=== PATIENT | female | born 1970 | race Caucasian/White ===

== ENCOUNTER 2017-06-10 13:12 | Outpatient (RCR) | payer MEDICAID, SELFPAY ==
[2017-06-10 14:55] VITALS: BP 115/69; PULSE 90; RESP 16; TEMP 36.9; BMI 24.2
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
== END 2017-06-15 23:59 ==
LOC: WC 13:12
PROVIDERS: Family Provider Family Medicine; PCP Family Medicine; Visit Provider Family Medicine
DX: E11.622 Type 2 diabetes mellitus with other skin ulcer (principal); L98.491 Non-pressure chronic ulcer of skin of other sites limited to breakdown of skin; E11.42 Type 2 diabetes mellitus with diabetic polyneuropathy; L84 Corns and callosities; E11.65 Type 2 diabetes mellitus with hyperglycemia; F41.9 Anxiety disorder, unspecified; F32.9 Major depressive disorder, single episode, unspecified; Z79.899 Other long term (current) drug therapy; Z79.4 Long term (current) use of insulin; F17.210 Nicotine dependence, cigarettes, uncomplicated
CPT/HCPCS: 97597; 99213; G0463

== ENCOUNTER → 2017-06-17 07:48 | Outpatient (CLI) | payer MEDICAID, SELFPAY ==
--- NOTE | 2017-06-27 14:01 | EEG ---
- Electroencephalogram Date of service: 06/17/17 History EEG is being done in this 47 yr F to rule out seizures EEG Description: This is an 18 channel EEG with 10-20 lead placement system. Bipolar montages, Referential and Circumferential montages were reviewed. Photic stimulation and Hyperventilation were performed. The posterior dominant background rhythm is 6-7 HZ synchronous, symmetric, reacting to eye opening and closing. Photo stimulation did not elicit any driving response or abnormal photoparoxysmal response, Hyperventilation did not elicit any abnormal photoparoxysmal response. Sleep was not identified. There was no epileptiform discharges or electrographic seizures noted during this recording. The background rhythm showed generalized theta frequency EEG Interpretation This is an abnormal EEG due to the presence of moderate generalized slowing. This can be seen in generalized cerebral dysfunction like metabolic/toxic encephalopathy. Clinical correlation is advised. Please note, per [facility] patient is on Tramadol and should be be advised to stop tramadol which has the potential to lower seizure threshold. Will defer to the primary care physician or the EEG ordering physician to inform the patient about the same. There is no epileptiform discharges or electrographic seizures noted during the record.
== END ==
PROVIDERS: Family Provider Family Medicine; PCP Family Medicine; Visit Provider Family Medicine
DX: G40.409 Other generalized epilepsy and epileptic syndromes, not intractable, without status epilepticus (principal)
CPT/HCPCS: 95819

== ENCOUNTER 2017-06-28 14:37 | Outpatient (RCR) | payer MEDICAID, SELFPAY ==
--- NOTE | 2017-06-28 16:27 | HP.PTEVAL_ITS ---
Patient's Visit Information LUCINDA KAYE is a 47 year old F referred to Physical Therapy by DO SRI Hargrove with a diagnosis of WC assessment. Date of Evaluation: 06/28/17 Physical Therapist: Bear Swenson, PT, - Visit Plan Plan: Discharge pt at this time. I would recommend a wheelchair for community ambulation for this pt as she is unsteady while ambulating and has a low tolerance for ambulation. - Subjective Subjective: Pt reports she was Dx'd with DMII 8 years ago. Pt reports that with the DM, she has lost all sensation in her feet which makes it hard to walk without falling. Pt reports she also gets low BP at times which results in her having diff with walking as well. Pt reports she has had 2 recent falls lately which has given her LBP. Pt reports she has stairs at home, and cant negotiate them without help from someone else. Pt reports her legs give out on her when she has been sitting for a while and attempts to stand up. 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 Pt is unable to go shopping at this time without a riding cart secondary to intolerance with gait. Pt reports her feet, ankles, and back of her legs hurt from neuropathy. Pt uses a walker at home. - Pain B legs Pain Intensity (Out of 10): 8 - Objective Neuro: L2 and L3 dermatones are WNL to light touch. All other LE dermatones are numb. B patellar reflex= 1/3. MMT: R LE 4+/5 while L LE 4-/5 throughout. Gait : Pt is able to ambulate with WW 60 feet until having to sit down wecondary to neuropathy pain. Pt is very unsteady and uses slow cadance with her gait. Balance: Pt is able to DLS with EO for 30 sec without UE support. Pt is unable to DLS with EC or SLS at all. - Rehabilitation Potential Physical Therapy Diagnosis: Pt has B LE weakness, decreased lyly for ambulation, and unsteady gait secondary to B LE neuropathy Rehabilitation Potential: Excellent - Anticipated Interventions Patient/Client Instruction: Educate patient on: Condition, Plan of Care For the Purpose of:: To improve self management Thank you for the opportunity to evaluate your patient. For Medicare and Medicare HMO plans, please review the plan of care and approve it. It will need to be FAXED BACK to us at [phone] for Medicare purposes. Please let me know if there are questions or concerns regarding this plan of care. Physician Signature: Date:
== END 2017-06-28 15:00 | disposition home or self-care (01) ==
LOC: PT 14:37
PROVIDERS: Family Provider Family Medicine; PCP Family Medicine; Visit Provider Family Medicine
DX: M79.9 Soft tissue disorder, unspecified (principal); R26.81 Unsteadiness on feet; E11.42 Type 2 diabetes mellitus with diabetic polyneuropathy
CPT/HCPCS: 97161

== ENCOUNTER → 2017-07-28 14:11 | Outpatient (CLI) | payer MEDICAID, SELFPAY | PROVIDERS: Family Provider Family Medicine; PCP Family Medicine; Visit Provider Family Medicine | DX: R30.0 Dysuria (principal) | CPT/HCPCS: 87077; 87086; 87088; 87186 ==

== ENCOUNTER → 2017-08-12 09:51 | Outpatient (CLI) | payer MEDICAID, SELFPAY | PROVIDERS: Family Provider Family Medicine; PCP Family Medicine; Visit Provider Family Medicine | DX: N39.0 Urinary tract infection, site not specified (principal) | CPT/HCPCS: 87086; 87088 ==

== ENCOUNTER → 2017-08-22 18:34 | Outpatient (CLI) | payer MEDICAID, SELFPAY ==
--- NOTE | 2017-08-22 18:43 | RAD_ITS ---
STUDY: X-RAY - CERVICAL SPINE REASON FOR EXAM: Female, 47 years old. Neck pain, no known injury TECHNIQUE: 3 view(s) of the cervical spine were obtained. COMPARISON: None FINDINGS: Normal anterior atlantoaxial articulation. Normal odontoid process. Normal cervical lordosis. Normal vertebral bodies and endplates. Normal disc space heights. The soft tissue structures are unremarkable. Patient is edentulous. RAD/Cerv Spine 2 or 3 Views IMPRESSION: Normal x-ray examination of the visualized cervical spine. Electronically Signed: Maria C Leigh MD at 4:39 EDT , Service support ,
== END ==
PROVIDERS: Family Provider Family Medicine; PCP Family Medicine; Visit Provider Nurse Practitioner Family
DX: M54.2 Cervicalgia (principal)
CPT/HCPCS: 72040

== ENCOUNTER 2017-09-16 14:00 | Outpatient (RCR) | payer MEDICAID, SELFPAY ==
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
--- NOTE | 2017-09-07 14:01 | HP.PTREVAL_ITS ---
Alexandra Catalan, DO, It has been my pleasure to treat LUCINDA KAYE over the last 4 visits for NECK PAIN. Please see the progress note below for an update on the physical therapy plan of care! Subjective: PATIENT REPORTS SHE HAS NOT BEEN COMING TO PT BECAUSE PT MAKES HER HURT WORSE. SHE REPORTS SHE IS BACK BECAUSE HER DOCTOR WANTS HER TO TRY IT AGAIN BUT IF IT CAUSES INCREASED PAIN SHE WANTS TO BE RELEASED. HUEY REPORTS SHE HAS AN APPOINTMENT WITH A NEUROLOGIST SEP 21 2017. PATIENT REPORTS SHE IS ABOUT THE SAME OR WORSE SINCE HER INITIAL PT VISIT IN MAY. Objective/Function: UPON EXAM, THERE ARE NO SIGNIFICANT CHANGES SINCE INITIAL EVALUATION. Plan Plan: RESUME PT FOR TRIAL OF POSTURE CORRECTION/STRENGTHEING. CERVICAL STM, US , AND CP/MH. CERVICAL ROM AND ISOMETRICS. WRITTEN HEP INSTRUCTION. TARA UE ROM , STRETCHING AND STRENGTHEING. Goals Goal 1:: DECREASE C/O NECK AND TARA UE SX'S Goal Time Frame: 4-6 Weeks Goal Progress: Not Progressing Goal 2:: IMPROVE SITTING, REACHING, HEAD TURNING, LIFTING, ADL AND SLEEP FUNCTION Goal Time Frame: 4-6 Weeks Goal Progress: Not Progressing Goal 3:: INSTRUCT IN PROPHYLAXIS. Goal Time Frame: 4-6 Weeks Goal Progress: Not Progressing Anticipated Interventions Patient/Client Instruction: Educate patient on: Condition, Plan of Care, Risk Factors, Benefits of Fitness Program For the Purpose of:: To improve self management Therapeutic Exercise to Include: Strength training, Body mechanics, Postural training, Flexibilty training, Active ROM, Scapular Strength/Stabilization For the Purpose of:: To decrease pain, To increase ROM, To improve muscle performance and motor function, To improve ability to perform ADL's, To increase flexibility/ROM Manual Therapy Techniques to Include: Soft tissue mobilization For the Purpose of:: To decrease pain, To increase ROM TENS: Yes Cryotherapy (ice pack, ice massage): Yes Thermo therapy (hot pack): Yes Ultrasound (thermal/non thermal): Yes For the Purpose of:: To decrease pain, To decrease swelling/inflammation, To increase ROM Please do not hesitate to contact me at [phone] by phone or Fax: if you have questions or concerns regarding this new plan of care! Sincerely, Aminah Barnes
--- NOTE | 2017-12-18 12:21 | HP.PT.NRP ---
HP - Discharge Summary (1) - Patient Information LUCINDA KAYE was seen in my office for initial evaluation on 05/30/17. The following Plan of Care was established for this patient: Initial Frequency: 2-3x /Week Initial Duration: 4-6 Weeks - Anticipated Interventions Patient/Client Instruction: Educate patient on: Condition, Plan of Care, Risk Factors, Benefits of Fitness Program For the Purpose of:: To improve self management Therapeutic Exercise to Include: Strength training, Body mechanics, Postural training, Flexibilty training, Active ROM, Scapular Strength/Stabilization For the Purpose of:: To decrease pain, To increase ROM, To improve muscle performance and motor function, To improve ability to perform ADL's, To increase flexibility/ROM Manual Therapy Techniques to Include: Soft tissue mobilization For the Purpose of:: To decrease pain, To increase ROM TENS: Yes Cryotherapy (ice pack, ice massage): Yes Thermo therapy (hot pack): Yes Ultrasound (thermal/non thermal): Yes For the Purpose of:: To decrease pain, To decrease swelling/inflammation, To increase ROM This patient was last seen in our office 09/16/17. Pertinent comments regarding their Physical therapy will appear below: This patient has not returned to Physical Therapy and is appropriate to return to MD for further follow-up as needed. At this point I will be discontinuing this patient from physical therapy. I would be happy to see this patient again in the future if found appropriate by the physician. Thank you! Aminah Barnes
== END 2017-09-16 19:00 | disposition home or self-care (01) ==
LOC: PT 14:00
PROVIDERS: Family Provider Family Medicine; PCP Family Medicine; Visit Provider Family Medicine
DX: M54.2 Cervicalgia (principal)
CPT/HCPCS: 77063; 77067; 97035; 97110; 97140; 97162; 97530

== ENCOUNTER → 2017-10-06 17:43 | Outpatient (CLI) | payer MEDICAID, SELFPAY ==
--- NOTE | 2017-10-06 18:23 | MRI_ITS ---
STUDY: MRI CERVICAL SPINE WITHOUT CONTRAST REASON FOR EXAM: Female, 47 years old. Chronic neck pain with bilateral extremity weakness TECHNIQUE: Standardized fat and water weighted pulse sequences were obtained in the sagittal and axial planes. COMPARISON: None FINDINGS: Normal foramen magnum and brainstem-cervical cord junction. Normal craniovertebral junction. Normal anterior atlantoaxial articulation. Normal odontoid process. Decreased cervical lordosis. Normal vertebral bodies and posterior osseous elements. C2-3: Normal endplates. Normal disc height, signal and morphology. Normal central canal and intervertebral neural foramina. C3-4: Normal endplates. Normal disc height, signal and morphology. Normal central canal and intervertebral neural foramina. C4-5: Normal endplates. Normal disc height, signal and morphology. Normal central canal and intervertebral neural foramina. C5-6: Normal endplates. Normal disc height, signal and tiny central disc protrusion. Normal central canal and intervertebral neural foramina. C6-7: Normal endplates. Normal disc height, signal and tiny left posterolateral disc protrusion.. Normal central canal and intervertebral neural foramina. C7-T1: Normal endplates. Normal disc height, signal and morphology. Normal central canal and intervertebral neural foramina. Normal cervical cord. Normal visualized soft tissue structures. MRI/Spine Cervical (Routine) IMPRESSION: No evidence for acute fracture or subluxation. Tiny central disc protrusion at C5-6 and tiny left posterolateral disc protrusion at C6-7 without significant spinal stenosis Electronically Signed: Luther Santos MD at 22:19 EDT , Service support ,
== END ==
PROVIDERS: Family Provider Family Medicine; PCP Family Medicine; Visit Provider Nurse Practitioner Family
DX: M46.52 Other infective spondylopathies, cervical region (principal)
CPT/HCPCS: 72141

== ENCOUNTER → 2018-02-06 13:15 | Outpatient (CLI) | payer MEDICAID, SELFPAY ==
--- NOTE | 2018-02-06 13:19 | MRI_ITS ---
STUDY: MRI BRAIN WITHOUT CONTRAST REASON FOR EXAM: Female, 47 years old. Seizures for 8 months TECHNIQUE: Standardized multiplanar fat and water weighted pulse sequences were obtained. COMPARISON: CT of the brain on November 23, 2016 FINDINGS: Normal size of the ventricles and extra-axial spaces for the patient's age. Nonspecific increased signal within the splenium of the corpus callosum.. Normal bilateral basal ganglia. Normal thalami. There is no extra-axial fluid accumulation. Normal flow voids within the major intracranial circulation suggesting patency by spin echo criteria. Normal sella turcica, pituitary gland, infundibular stalk, optic chiasm and hypothalamus. Normal tectal plate and pineal gland. Normal midbrain, sachi and medulla. Normal cerebellum. Normal basal cisterns. Normal bilateral temporal bones. Normal bilateral internal auditory canals. Atypical appearance to the left optic lobe possibly representing vitreous hemorrhage. Cannot exclude coexisting mass... Normal visualized paranasal sinuses. Normal calvarium and skull base. Normal visualized soft tissue structures. Normal visualized upper cervical spine. MRI/Brain without Contrast IMPRESSION: Nonspecific increased signal within the splenium of the corpus callosum of uncertain etiology. Possibility of neoplasm or demyelinating disease not excluded. Limited repeat study with contrast would be helpful for further evaluation Incidental finding of left intraocular lesion of uncertain etiology and significance. Clinical correlation recommended Electronically Signed: Luther Santos MD at 22:48 EDT , Service support ,
== END ==
PROVIDERS: Family Provider Family Medicine; PCP Family Medicine; Visit Provider Psychiatry & Neurology Neurology
DX: R56.9 Unspecified convulsions (principal)
CPT/HCPCS: 70551

== ENCOUNTER → 2018-02-20 17:14 | Outpatient (CLI) | payer MEDICAID, SELFPAY ==
--- NOTE | 2018-02-20 17:24 | MRI_ITS ---
STUDY: MRI BRAIN WITH AND WITHOUT CONTRAST REASON FOR EXAM: Female, 47 years old. Left intraocular lesion TECHNIQUE: Standardized multiplanar fat and water weighted pulse sequences were obtained. 7 ml of Gadavist contrast material was administered intravenously for the contrast portion of the examination. COMPARISON: None. FINDINGS: Normal size of the ventricles and extra-axial spaces for the patient's age. Normal white matter tracts of the supratentorial brain. Normal bilateral basal ganglia. Normal thalami. There is no extra-axial fluid accumulation. Normal flow voids within the major intracranial circulation suggesting patency by spin echo criteria. Normal venous enhancement. There is no enhancing intra-axial or extra-axial abnormality. Normal sella turcica, pituitary gland, infundibular stalk, optic chiasm and hypothalamus. Normal tectal plate and pineal gland. Normal midbrain, sachi and medulla. Normal cerebellum. Normal basal cisterns. Normal bilateral temporal bones. Normal bilateral internal auditory canals. There is a nonenhancing nodular opacity within the orbit just to the left of the hyaloid canal measuring 5.4 x 4.1 mm.. Given prior surgery for retinal detachment differential diagnosis includes postsurgical hematoma or choroidal detachment. Clinical correlation recommended There is mild mucosal thickening within the right sphenoid sinus Normal calvarium and skull base. Normal visualized soft tissue structures. Normal visualized upper cervical spine. MRI/Brain W/WO Contrast IMPRESSION: Normal unenhanced and enhanced MRI of the brain. Findings which may be consistent with choroidal detachment or less likely small hematoma in the left orbit status post surgery for retinal detachment Electronically Signed: Luther Santos MD at 19:01 EDT , Service support ,
--- NOTE | 2018-02-20 18:25 | RAD_ITS ---
STUDY: X-RAY - LUMBAR SPINE REASON FOR EXAM: Female, 47 years old. Low back pain TECHNIQUE: 6 view(s) of the lumbar spine were obtained. COMPARISON: June 29 2010 FINDINGS: Normal lumbar lordosis. There is no substantial scoliosis. There is a normal alignment of the vertebrae. No evidence for acute fracture or subluxation. Disc space heights are well-maintained although there is very mild multilevel osteophytic spurring. The soft tissue structures are unremarkable. RAD/L/S Spine Min 4 Views IMPRESSION: No evidence for acute fracture or subluxation. Minor spondylosis Electronically Signed: Luther Santos MD at 23:47 EDT , Service support ,
== END ==
PROVIDERS: Family Provider Family Medicine; PCP Family Medicine; Referring Provider Psychiatry & Neurology Neurology; Visit Provider Psychiatry & Neurology Neurology
DX: H57.9 Unspecified disorder of eye and adnexa (principal); R93.89 Abnormal findings on diagnostic imaging of other specified body structures
CPT/HCPCS: 70553; 72110; A9585

== ENCOUNTER → 2018-02-21 17:39 | Outpatient (CLI) | payer MEDICAID, SELFPAY | PROVIDERS: Family Provider Family Medicine; PCP Family Medicine; Referring Provider Family Medicine; Visit Provider Family Medicine | DX: E11.8 Type 2 diabetes mellitus with unspecified complications (principal); F41.9 Anxiety disorder, unspecified ==

== ENCOUNTER 2018-03-21 11:22 | Emergency (ER) | payer MEDICAID, SELFPAY ==
[2018-03-21 11:24] VITALS: BP 140/81; PULSE 103; RESP 16; TEMP 36.8; O2SAT 95; BMI 25.9
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
[2018-03-21 14:22] VITALS: BP 134/89; PULSE 84; RESP 16; O2SAT 98
[2018-03-21] MEDS: LORazepam 1 MG Tablet PO (14:22)
[2018-03-21 14:29] LABS: Absolute Lymphocyte Count 2.22 X10^3/ul (0.83-4.51); Absolute Neutrophil Count 14.4 X10^3/uL (2.0-7.7); Basophil# 0.06 X10^3/uL; Basophil% 0.3 % (0-1); Eosinophil# 0.01 X10^3/uL; Eosinophils% 0.1 % (0-5); Hematocrit 49.1 % (37-47); Hemoglobin 16.3 g/dl (12.0-15.0); Lymphocyte # 2.22 X10^3/ul (4.0); Lymphocyte % 12.5 % (19-41); Mean Corp Hgb Conc 33.2 g/gl (32-36); Mean Corpuscular Hgb 28.5 pg (27.0-32.0); Mean Corpuscular Volume 85.8 fL (81-99); Mean Platelet Vol. 11.4 fl (6.2-12.0); Monocyte# 1.07 X10^3/uL; Neutrophil # 14.37 X10^3/uL (2.7-7.7); Neutrophil % 80.9 % (47-70); Platelet Count 279 K/mm3 (150-450); RBC Distribution Width CV 15.8 % (11.6-14.6); RBC Distribution Width SD 49.7 fl (35.1-43.9); Red Blood Count 5.72 M/mm3 (4.2-5.4); White Blood Count 17.8 K/mm3 (4.4-11.0)
[2018-03-21 14:30] LABS: POSITIVE COUNT NO; POSITIVE DIFFERENTIAL NO; POSITIVE MORPHOLOGY NO
[2018-03-21 14:36] LABS: Anion Gap 9 (5-15); BUN 20 mg/dL (7-18); BUN/Creat Ratio 17.1 RATIO (10-20); Calcium,Total 9.3 mg/dL (8.5-10.1); Chloride 105 mmol/L (98-107); Creatinine, Serum 1.17 mg/dL (0.55-1.02); EST Glomerular Filtration Rate 52 mL/min (>60); Est Glom Filt Rate - Afr Amer 63 mL/min (>60); Estimated Creatinine Clearance 52.34 ml/min; Glucose 250 mg/dL (74-106); Potassium 3.8 mmol/L (3.5-5.1); Sodium Level 142 mmol/L (136-145)
[2018-03-21 14:54] LABS: Alcohol, Blood (Medical)-Serum < 3.0 mg/dL
[2018-03-21 15:00] LABS: Pregnancy, Serum, hCG Quali. NEGATIVE Negative (0-9 Nonpreg)
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
[2018-03-21 16:14] VITALS: BP 142/74; PULSE 74; RESP 18; O2SAT 97
[2018-03-21 16:42] LABS: Color, Urine Yellow (Yellow); Glucose, Dipstick 1000 mg/dl (Normal); Ketone-Dipstick 15 mg/dl (Negative); Leukocyte Esterase-Dipstick 25 /ul (Negative); Nitrite-Dipstick Positive (Negative); Occult Blood-Urine 150 /ul (Negative); Protein-Dipstick 30 mg/dl (Negative); Specific Gravity, Urine 1.025 (1.002-1.030); Urine Bilirubin Dipstick Negative (Negative); Urine Clarity Sl. Cloudy (Clear); Urine Urobilinogen Normal (Normal)
[2018-03-21 16:51] LABS: Bacteria 4+ /hpf (None Seen); Red Blood Cells-Urine 0-5 SEEN /hpf (0-5); Squamous Epithelial Cells - UA 0-5 SEEN /hpf (5-10); White Blood Cells 5-10 SEEN /hpf (0-5)
[2018-03-21 16:52] LABS: Mucous, Urine 1+ /hpf (<or=2+)
[2018-03-21 16:58] LABS: Amphetamine Urine VISTA NEGATIVE (<1000 ng/mL); Barbiturate Urine VISTA NEGATIVE (< 200 ng/mL); Benzodiazepine Urine VISTA NEGATIVE (< 200 ng/mL); Cocaine Urine VISTA NEGATIVE (< 300 ng/mL); Ecstacy Urine VISTA NEGATIVE (< 500 ng/mL); Methadone Urine VISTA NEGATIVE (< 300 ng/mL); PCP Urine VISTA NEGATIVE (< 25 ng/mL); THC Urine VISTA NEGATIVE (< 50 ng/mL); Vista UDS pH Range 5
[2018-03-21 17:14] VITALS: BP 138/74; PULSE 87; RESP 16; O2SAT 100
--- NOTE | 2018-03-21 18:08 | ED.DEP ---
ED Disposition - Plan for ED Patient: Chief Complaint: Mental Health Prescriptions: Cephalexin [Keflex] 500 mg PO Q6 7 Days cap Referrals: Maddie Valadez MD [Primary Care Provider] -
[2018-03-21 18:16] VITALS: BP 123/74; PULSE 87; RESP 16; O2SAT 98
[2018-03-21] MEDS: Cephalexin 250 MG Capsule 500 MG PO (18:26)
--- NOTE | 2018-03-21 19:43 | ED.RN ---
VANNESSA IS CARL VIDAL, PHONE NUMBER [phone]. PLEASE DON'T CALL UNTIL AFTER 1000.
[2018-03-21 21:00] VITALS: BP 132/78; PULSE 71; RESP 18; O2SAT 98
--- NOTE | 2018-03-21 21:20 | EKG12_ITS ---
Test Reason : [facility] [place] Blood Pressure : / mmHG Vent. Rate : 080 BPM Atrial Rate : 080 BPM P-R Int : 112 ms QRS Dur : 090 ms QT Int : 396 ms P-R-T Axes : 057 097 087 degrees QTc Int : 456 ms Sinus rhythm with Premature atrial complexes Rightward axis Borderline ECG Confirmed by LUKAS LYNN, TARIK ([id number]), film and video editor JAK LOFTON ([id number] on 03/23/2018 3:26:02 PM Referred By: DR ERICKSON Confirmed By:TARIK GAYTAN MD
--- NOTE | 2018-03-21 21:54 | ED.RN ---
PT FOUND WITH SOILED ATTENDS, ATTEMPTING TO WIPE STOOL ON WALL. PT STATES THE COW TOLD ME TO GET OUT OF BED, IT'S IN THE BED WITH ME. PT REDIRECTED TO BED, MEAL GIVEN, PT RESTING COMFORTABLY IN BED.
--- NOTE | 2018-03-21 22:56 | ED.RN ---
KIMBERLEY SENT HOME WITH VANNESSA VIDAL PER PT REQUEST.
[2018-03-22] VITALS (7 sets, daily range): BP systolic 110–162; BP diastolic 62–149; PULSE 89–101; RESP 14–20; O2SAT 93–97
[2018-03-22] MEDS: Pregabalin 50 MG Capsule 100 MG PO
[2018-03-22] MEDS: QUEtiapine 100 MG Tablet 200 MG PO
[2018-03-22] MEDS: levETIRAcetam 500 MG Tablet PO
[2018-03-22] MEDS: LORazepam 1 MG Tablet PO (00:07)
[2018-03-22 05:01] LABS: Bedside Glucose 242 mg/dL (70-110)
== END 2018-03-22 08:28 ==
LOC: ED 13:38
PROVIDERS: Emergency Provider Emergency Medicine; Family Provider Family Medicine; PCP Family Medicine
DX: F23 Brief psychotic disorder (principal); F31.9 Bipolar disorder, unspecified; N39.0 Urinary tract infection, site not specified; H54.62 Unqualified visual loss, left eye, normal vision right eye; E11.9 Type 2 diabetes mellitus without complications; Z79.4 Long term (current) use of insulin; Z72.0 Tobacco use
CPT/HCPCS: 80048; 80307; 80320; 81001; 82962; 84703; 85025; 87077; 87086; 87088; 87186; 93005; 99282; G0480

== ENCOUNTER 2018-06-05 08:55 | Inpatient (IN) | payer MEDICAID, SELFPAY ==
[2018-06-05] VITALS (28 sets, daily range): BP systolic 91–181; BP diastolic 59–105; PULSE 71–131; RESP 11–24; TEMP 36.7–38.6; O2SAT 92–100; BMI 27.9; BMI 27.8
--- NOTE | 2018-06-05 09:02 | RAD_ITS ---
STUDY: X-RAY CHEST REASON FOR EXAM: Female, 47 years old. Overdose. Cough. TECHNIQUE: Single AP portable view of the chest. COMPARISON: Comparison is made with prior study dated November 12, 2016. FINDINGS: EKG electrodes are seen. Patchy infiltrates and/or atelectasis at the lung bases worse on the right side. There is no demonstrated pleural abnormality. Normal size heart. Normal mediastinum and rachael. Normal visualized pulmonary arteries. Normal visualized aortic arch and descending thoracic aorta. Normal visualized thoracic spine. Normal visualized ribs, clavicles, and shoulders. There is no demonstrated abnormality of the visualized soft tissue structures of the upper abdomen. RAD/Chest 1 View (Portable) IMPRESSION: Patchy infiltrate/atelectasis at the lung bases worse on the right lung base. Electronically Signed: Carlos Borges MD at 9:43 EST Tel [phone], Service support ,
--- NOTE | 2018-06-05 09:02 | CT_ITS ---
STUDY: CT BRAIN WITHOUT CONTRAST REASON FOR EXAM: Female, 47 years old. Altered mental status. Hyperglycemia. RADIATION DOSAGE (If Supplied By Facility): CTDIvol = ( 44.99 ) mGy, DLP = ( 762.36 ) mGycm TECHNIQUE: Transaxial CT imaging of the brain was performed without administration of intravenous contrast material. Individualized dose optimization techniques were used for this CT. COMPARISON: Comparison is made with prior study dated November 23, 2016. FINDINGS: Normal soft tissue structures. Normal calvarium. Normal size ventricles and extra-axial spaces for the patient's age. Normal white matter tracts of the cerebral hemispheres. Normal basal ganglia and thalami. Normal brainstem. Normal cerebellum. There is no intracranial hemorrhage. There are no findings of an acute ischemic infarction. Normal visualized paranasal sinuses. CT/Brain/Head without Contrast IMPRESSION: Normal unenhanced CT scan of the brain. Electronically Signed: Carlos Borges MD at 9:44 EST Tel [phone], Service support ,
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
[2018-06-05] MEDS: Naloxone 2 MG/2 ML Syringe IV (09:10)
[2018-06-05] MEDS: 0.9% Normal Saline 1,000 ML 1000 ML IV ×2 (09:10→09:21)
[2018-06-05 09:11] LABS: Bedside Glucose 456 mg/dL (70-110)
[2018-06-05 09:16] LABS: Base Excess -1 mmol/L (-2 to +2); Bicarbonate 25.4 mmol/L (22-26); Blood Gas Specimen Type ART; O2 Delivery Device Nasal Can; PO2 70 mmHG (75-100); SITE L Brachial; SO2 92 % (95-99); Time Given 830; Total Carbon Dioxide 27 mmol/L; pCO2 49.5 mmHg (35-45); pH 7.32 (7.35-7.45)
[2018-06-05 09:16] LABS: Absolute Lymphocyte Count 2.38 X10^3/ul (0.83-4.51); Absolute Neutrophil Count 10.2 X10^3/uL (2.0-7.7); Basophil# 0.05 X10^3/uL; Basophil% 0.4 % (0-1); Eosinophil# 0.15 X10^3/uL; Eosinophils% 1.1 % (0-5); Hemoglobin 14.2 g/dl (12.0-15.0); Lymphocyte # 2.38 X10^3/ul (4.0); Mean Corp Hgb Conc 32.3 g/gl (32-36); Mean Corpuscular Hgb 28.3 pg (27.0-32.0); Mean Corpuscular Volume 87.6 fL (81-99); Mean Platelet Vol. 11.9 fl (6.2-12.0); Monocyte# 1.11 X10^3/uL; Monocyte% 7.9 % (0-10); Neutrophil # 10.24 X10^3/uL (2.7-7.7); Neutrophil % 73.1 % (47-70); POSITIVE COUNT NO; POSITIVE DIFFERENTIAL NO; POSITIVE MORPHOLOGY NO; Platelet Count 210 K/mm3 (150-450); RBC Distribution Width CV 14.2 % (11.6-14.6); RBC Distribution Width SD 45.2 fl (35.1-43.9); Red Blood Count 5.02 M/mm3 (4.2-5.4)
--- NOTE | 2018-06-05 09:27 | ED.RN ---
PT AWAKENS AND RESPONDS WITH VERBAL STIMULI. PT DENIES PAIN OR DISCOMFORT.
[2018-06-05 09:41] LABS: Alcohol, Blood (Medical)-Serum < 3.0 mg/dL
[2018-06-05 09:43] LABS: ALB/GLOB Ratio 0.8 RATIO (0.9-2.4); AST(SGOT) 28 U/L (15-37); Alanine Aminotransfer ALT/SGPT 56 U/L (13-56); Albumin, Serum 3.2 g/dL (3.2-5.0); Alkaline Phosphatase 108 U/L (45-117); Anion Gap 11 (5-15); BUN 11 mg/dL (7-18); BUN/Creat Ratio 8.3 RATIO (10-20); Chloride 99 mmol/L (98-107); Creatinine, Serum 1.32 mg/dL (0.55-1.02); EST Glomerular Filtration Rate 45 mL/min (>60); Est Glom Filt Rate - Afr Amer 55 mL/min (>60); Estimated Creatinine Clearance 48.26 ml/min; Globulin 4.1 g/dL (2.2-4.2); Glucose 461 mg/dL (74-106); Potassium 3.9 mmol/L (3.5-5.1); Protein, Total 7.3 g/dL (6.4-8.2); Sodium Level 138 mmol/L (136-145)
--- NOTE | 2018-06-05 09:44 | ED.RN ---
GLUCOSE [address] CALL[address] FROM THE LAB. DR RANDOLPH AWARE
[2018-06-05 09:48] LABS: Lactic Acid 3.5 mmol/L (0.4-2.0)
--- NOTE | 2018-06-05 09:48 | ED.RN ---
LACTIC 3.[address] CALL[address] FROM THE LAB. DR TOMASA PARR
[2018-06-05 10:32] LABS: Mucous, Urine 0 SEEN /hpf (<or=2+)
[2018-06-05 10:34] LABS: Color, Urine Yellow (Yellow); Glucose, Dipstick 1000 mg/dl (Normal); Ketone-Dipstick Negative (Negative); Leukocyte Esterase-Dipstick 25 /ul (Negative); Nitrite-Dipstick Positive (Negative); Occult Blood-Urine 10 /ul (Negative); Protein-Dipstick Negative (Negative); Urine Bilirubin Dipstick Negative (Negative); Urine Clarity Sl. Cloudy (Clear); Urine Urobilinogen Normal (Normal)
[2018-06-05 10:40] LABS: Bacteria 1+ /hpf (None Seen); Red Blood Cells-Urine 0-5 SEEN /hpf (0-5); Squamous Epithelial Cells - UA 0-5 SEEN /hpf (5-10); White Blood Cells 0-5 SEEN /hpf (0-5)
[2018-06-05 10:46] LABS: Amphetamine Urine VISTA NEGATIVE (<1000 ng/mL); Barbiturate Urine VISTA NEGATIVE (< 200 ng/mL); Benzodiazepine Urine VISTA POSITIVE (< 200 ng/mL); Cocaine Urine VISTA NEGATIVE (< 300 ng/mL); Ecstacy Urine VISTA NEGATIVE (< 500 ng/mL); Methadone Urine VISTA NEGATIVE (< 300 ng/mL); PCP Urine VISTA NEGATIVE (< 25 ng/mL); THC Urine VISTA NEGATIVE (< 50 ng/mL); Vista UDS pH Range 5
[2018-06-05] MEDS: Insulin Human 75/25 Kwickpen 20 UNIT SC (11:00)
--- NOTE | 2018-06-05 11:21 | NURSING ---
ICU 2 SEPSIS, AND HYPERGLYCEMIA ALEX
--- NOTE | 2018-06-05 12:15 | NURSING ---
IN ICU2 per care from ER, [facility] in attendance
[2018-06-05 13:01] LABS: Carbamazepine (Tegretol) < 0.5 ug/mL (4.0-12.0)
[2018-06-05 13:05] LABS: Bedside Glucose 269 mg/dL (70-110)
--- NOTE | 2018-06-05 13:10 | NURSING ---
to bipap 35% 10/5
[2018-06-05 13:14] LABS: Reflex Lactate? Y
[2018-06-05 13:30] LABS: Hemoglobin A1c 12.2 % (4.2-6.3)
[2018-06-05 14:04] LABS: Lactic Acid 1.4 mmol/L (0.4-2.0)
[2018-06-05] MEDS: Insulin Lispro 100 UNIT/ML INSULN.PEN SQ (14:15)
[2018-06-05 14:26] LABS: Allen Test POS; Base Excess 2 mmol/L (-2 to +2); Bicarbonate 28.5 mmol/L (22-26); Blood Gas Specimen Type ART; EPAP 5; FI02 35; IPAP 10; PO2 74 mmHG (75-100); RR 12; SITE R Radial; SO2 93 % (95-99); Time Given 1420; Total Carbon Dioxide 30 mmol/L; pCO2 57.8 mmHg (35-45)
[2018-06-05] MEDS: Etomidate 20 MG/10 ML Vial IV (14:55)
--- NOTE | 2018-06-05 15:02 | PCM.HP.STD ---
Problem List (1) UTI (urinary tract infection) Status: Acute (2) Pneumonia Status: Acute (3) Dehydration Status: Acute (4) Hyperglycemia Status: Acute (5) Peripheral neuropathy Status: Chronic Qualifiers: (6) Anxiety Status: Chronic (7) Depression Status: Chronic (8) Type II diabetes mellitus Status: Chronic Qualifiers: History of Present Illness Date of Admission: 06/05/18 Chief Complaint: Lethargy The patient is a 47 year old F who presented from home by EMS because of altered mental status and unresponsiveness. She is not alert to be able to give a history. She does arouse to excessive stimuli. No family is at bedside during the interview, and most of the history was obtained by chart review. Her significant other called EMS because he knows that she was unresponsive and breathing very slowly, when EMS arrived they maryann blood sugar and it was 300. They gave her a dose of Narcan at the house, and she was given a dose of Narcan here in the ER, neither of which seem to help. A UDS in the ER was positive for benzos. She also takes Tegretol and that lab was sent out as well and her level was low. An ABG done in the ER showed a pH of 7.32 with a PCO2 of 49 and a PO2 of 70, and therefore she was initially transferred to PCU stepdown on BiPAP. It was also noticed during her initial presentation that a chest x-ray demonstrated right lower lung patchy infiltrates possibly due to aspiration given her unresponsiveness or community-acquired pneumonia. There was no history of emesis her the ER documentation. Also on presentation her blood sugars were elevated into the 400s and she had a UA that was consistent with her Charles tract infection. Past Medical History Past Medical History (Chronic Problems): Chronic Problems Ulcer of finger (Chronic) Peripheral neuropathy (Chronic) Anxiety (Chronic) Depression (Chronic) Type II diabetes mellitus (Chronic) Allergies Sulfa (Sulfonamide Antibiotics) Allergy (Verified 06/05/18 09:29) Hives Home Medications: Ambulatory Orders Medication Instructions Recorded Lorazepam [Ativan] 2 mg PO TID 06/23/15 Pregabalin [Lyrica] 200 mg PO BID 10/27/15 traMADol [Ultram] 100 mg PO Q6H 10/27/15 Baclofen 10 mg PO TID PRN PRN 07/26/16 Pregabalin [Lyrica] 100 mg PO LUNCH 07/26/16 Cetirizine HCl [Zyrtec] 10 mg PO DAILY 11/12/16 Insulin Glargine,Hum.rec.anlog 40 unit SQ BID 11/12/16 [Basaglar Kwikpen U-100] Albuterol Inhaler [Ventolin Hfa 2 puff INHALATION Q4H PRN PRN 06/10/17 (SP)] Albuterol Sulfate 2.5 mg IH BID PRN 06/10/17 Carbamazepine [Tegretol] 200 mg PO DAILY 06/10/17 Fluticasone Propionate [Flovent 50 mcg NASAL BID 06/10/17 Diskus] Meloxicam [Mobic] 15 mg PO DAILY 06/10/17 Ondansetron [Zofran Odt] 4 mg PO Q8H PRN PRN 06/10/17 Oxybutynin Chloride [Ditropan Xl] 5 mg PO BID 06/10/17 Quetiapine Fumarate [Seroquel] 100 mg PO TID 06/10/17 Fexofenadine HCl 180 mg PO DAILY 06/05/18 Hydroxyzine HCl 25 mg PO QHS 06/05/18 Insulin Lispro [Humalog KwikPen] 10 unit SQ BIDCM 06/05/18 Levetiracetam 500 mg PO BID 06/05/18 Risperidone 3 mg PO BID 06/05/18 Surgical History: cholecystectomy, - - Tubal ligation. Smoking Status: Current every day smoker Tobacco Use: Cigarettes - *Family History Maternal History Items: No pertinent history Paternal History Items: No pertinent history Review of Systems Unable to obtain accurate/complete ROS d/t: Unresponsiveness VTE Information - Inpt Only VTE Present on Admission: No Patient Problems: Active and Suspected Problems UTI (urinary tract infection) (Acute) Pneumonia (Acute) - Physical Exam General: Lethargic, - - Responsive to vigorous stimuli only HEENT: Atraumatic, Normocephalic, - - Left eye is cloudy, chronic Oral: Dry Mucosa Neck: Supple, No JVD, Trachea Midline Lungs: Clear to auscultation, Normal air movement, No rhonchi, No wheeze, No rales, Diminished Cardiovascular: Regular rate, Regular Rhythm, Normal S1, Normal S2, No murmurs Abdomen: Soft, Non-Distended, No Hepato-splenomegaly Extremities: No edema, Capillary Refill Less than 3 Seconds Skin: No rashes, No breakdown Neurological: - - Lethargic not cooperative Psych/Mental Status: - - Unable to assess due to lethargy Vital Signs Temp Pulse Resp BP Pulse Ox 98.7 F 99 14 104/76 97 06/05/18 14:00 06/05/18 14:00 06/05/18 14:00 06/05/18 14:00 06/05/18 14:00 Oxygen Flow Rate (L/min) 4 Oxygen Delivery Method Bi-pap Weight: 172 lb 2.896 oz Body Mass Index (BMI) 27.8 Finger Stick Blood Glucose 456 Laboratory Tests Past 24 Hrs 06/05/18 06/05/18 06/05/18 09:00 09:00 09:00 WBC 14.0 H RBC 5.02 Hgb 14.2 Hct 44.0 MCV 87.6 MCH 28.3 MCHC 32.3 RDW 14.2 RDW Differential 45.2 H Plt Count 210 MPV 11.9 Immature Gran % (Auto) 0.500 Neut % (Auto) 73.1 H Lymph % (Auto) 17.0 L [place] % (Auto) 7.9 Eos % (Auto) 1.1 Baso % (Auto) 0.4 Absolute Neuts (auto) 10.2 H Absolute Lymphs (auto) 2.38 Total Counted Not Reportable Specimen Type Sample Site pH Bicarbonate Actual POC Total CO2 Base Excess O2 Saturation O2 % ABG pCO2 ABG pO2 Vega Test Respiration Rate O2 Delivery Device Liter Flow EPAP IPAP Blood Gas Notified Whom Blood Gas Notified Time Sodium 138 Potassium 3.9 Chloride 99 Carbon Dioxide 28.0 Anion Gap 11 BUN 11 Creatinine 1.32 H Estim Creat Clear Calc 48.26 Est GFR (MDRD) Af Amer 55 L Est GFR (MDRD) Non-Af 45 L BUN/Creatinine Ratio 8.3 L Glucose 461 H* Hemoglobin A1c Lactic Acid Calcium 9.0 Total Bilirubin 0.20 AST 28 ALT 56 Alkaline Phosphatase 108 Troponin I 0.043 Total Protein 7.3 Albumin 3.2 Globulin 4.1 Albumin/Globulin Ratio 0.8 L Urine Color Urine Clarity Urine pH Ur Specific [place] Urine Protein Urine Glucose (UA) Urine Ketones Urine Occult Blood Urine Nitrite Urine Bilirubin Urine Urobilinogen Ur Leukocyte Esterase Urine RBC Urine WBC Ur Squamous Epith Cells Urine Bacteria Urine Mucus Urine Opiates Screen Urine Methadone Screen Ur Barbiturates Screen Carbamazepine Ur Phencyclidine Scrn Ur Amphetamines Screen U Methamphetamin-MDMA U Benzodiazepines Scrn Urine Cocaine Screen U Cannabinoids Screen Ur Drug Screen Comment Ethyl Alcohol Acetone Level NEGATIVE 06/05/18 06/05/18 06/05/18 09:00 09:00 09:00 WBC RBC Hgb Hct MCV MCH MCHC RDW RDW Differential Plt Count MPV Immature Gran % (Auto) Neut % (Auto) Lymph % (Auto) [place] % (Auto) Eos % (Auto) Baso % (Auto) Absolute Neuts (auto) Absolute Lymphs (auto) Total Counted Specimen Type Sample Site pH Bicarbonate Actual POC Total CO2 Base Excess O2 Saturation O2 % ABG pCO2 ABG pO2 Vega Test Respiration Rate O2 Delivery Device Liter Flow EPAP IPAP Blood Gas Notified Whom Blood Gas Notified Time Sodium Potassium Chloride Carbon Dioxide Anion Gap BUN Creatinine Estim Creat Clear Calc Est GFR (MDRD) Af Amer Est GFR (MDRD) Non-Af BUN/Creatinine Ratio Glucose Hemoglobin A1c 12.2 H Lactic Acid Calcium Total Bilirubin AST ALT Alkaline Phosphatase Troponin I Total Protein Albumin Globulin Albumin/Globulin Ratio Urine Color Urine Clarity Urine pH Ur Specific [place] Urine Protein Urine Glucose (UA) Urine Ketones Urine Occult Blood Urine Nitrite Urine Bilirubin Urine Urobilinogen Ur Leukocyte Esterase Urine RBC Urine WBC Ur Squamous Epith Cells Urine Bacteria Urine Mucus Urine Opiates Screen Urine Methadone Screen Ur Barbiturates Screen Carbamazepine < 0.5 L Ur Phencyclidine Scrn Ur Amphetamines Screen U Methamphetamin-MDMA U Benzodiazepines Scrn Urine Cocaine Screen U Cannabinoids Screen Ur Drug Screen Comment Ethyl Alcohol < 3.0 Acetone Level 06/05/18 06/05/18 06/05/18 09:10 09:11 10:28 WBC RBC Hgb Hct MCV MCH MCHC RDW RDW Differential Plt Count MPV Immature Gran % (Auto) Neut % (Auto) Lymph % (Auto) [place] % (Auto) Eos % (Auto) Baso % (Auto) Absolute Neuts (auto) Absolute Lymphs (auto) Total Counted Specimen Type ART Sample Site L Brachial pH 7.32 L Bicarbonate Actual 25.4 POC Total CO2 27 Base Excess -1 O2 Saturation 92 L O2 % ABG pCO2 49.5 H ABG pO2 70 L Vega Test NA Respiration Rate O2 Delivery Device Nasal Can Liter Flow 2.0 EPAP IPAP Blood Gas Notified Whom ED Blood Gas Notified Time 830 Sodium Potassium Chloride Carbon Dioxide Anion Gap BUN Creatinine Estim Creat Clear Calc Est GFR (MDRD) Af Amer Est GFR (MDRD) Non-Af BUN/Creatinine Ratio Glucose Hemoglobin A1c Lactic Acid 3.5 H Calcium Total Bilirubin AST ALT Alkaline Phosphatase Troponin I Total Protein Albumin Globulin Albumin/Globulin Ratio Urine Color Yellow Urine Clarity Sl. Cloudy Urine pH 5.0 Ur Specific [place] 1.020 Urine Protein Negative Urine Glucose (UA) 1000 H Urine Ketones Negative Urine Occult Blood 10 H Urine Nitrite Positive H Urine Bilirubin Negative Urine Urobilinogen Normal Ur Leukocyte Esterase 25 H Urine RBC 0-5 SEEN Urine WBC 0-5 SEEN Ur Squamous Epith Cells 0-5 SEEN Urine Bacteria 1+ Urine Mucus 0 SEEN Urine Opiates Screen Urine Methadone Screen Ur Barbiturates Screen Carbamazepine Ur Phencyclidine Scrn Ur Amphetamines Screen U Methamphetamin-MDMA U Benzodiazepines Scrn Urine Cocaine Screen U Cannabinoids Screen Ur Drug Screen Comment Ethyl Alcohol Acetone Level 06/05/18 06/05/18 06/05/18 10:28 13:30 14:19 WBC RBC Hgb Hct MCV MCH MCHC RDW RDW Differential Plt Count MPV Immature Gran % (Auto) Neut % (Auto) Lymph % (Auto) [place] % (Auto) Eos % (Auto) Baso % (Auto) Absolute Neuts (auto) Absolute Lymphs (auto) Total Counted Specimen Type ART Sample Site R Radial pH 7.30 L Bicarbonate Actual 28.5 H POC Total CO2 30 Base Excess 2 O2 Saturation 93 L O2 % 35 ABG pCO2 57.8 H ABG pO2 74 L Vega Test POS Respiration Rate 12 O2 Delivery Device Bi / C PAP Liter Flow EPAP 5 IPAP 10 Blood Gas Notified Whom ICU Blood Gas Notified Time 1420 Sodium Potassium Chloride Carbon Dioxide Anion Gap BUN Creatinine Estim Creat Clear Calc Est GFR (MDRD) Af Amer Est GFR (MDRD) Non-Af BUN/Creatinine Ratio Glucose Hemoglobin A1c Lactic Acid 1.4 Calcium Total Bilirubin AST ALT Alkaline Phosphatase Troponin I Total Protein Albumin Globulin Albumin/Globulin Ratio Urine Color Urine Clarity Urine pH Ur Specific [place] Urine Protein Urine Glucose (UA) Urine Ketones Urine Occult Blood Urine Nitrite Urine Bilirubin Urine Urobilinogen Ur Leukocyte Esterase Urine RBC Urine WBC Ur Squamous Epith Cells Urine Bacteria Urine Mucus Urine Opiates Screen NEGATIVE Urine Methadone Screen NEGATIVE Ur Barbiturates Screen NEGATIVE Carbamazepine Ur Phencyclidine Scrn NEGATIVE Ur Amphetamines Screen NEGATIVE U Methamphetamin-MDMA NEGATIVE U Benzodiazepines Scrn POSITIVE H Urine Cocaine Screen NEGATIVE U Cannabinoids Screen NEGATIVE Ur Drug Screen Comment Ethyl Alcohol Acetone Level POC Glucose 06/05/18 06/05/18 12:45 09:00 POC Glucose 269 H 456 H* Assessment/Plan All Active Problems UTI (urinary tract infection) (Acute) Pneumonia (Acute) Leukocytosis (Acute) Dehydration (Acute) Hyperglycemia (Acute) 1. Sepsis secondary to aspiration versus community-acquired pneumonia and UTI/acute hypoxic and hypercapnic respiratory failure secondary to sepsis and pneumonia/AK I/encephalopathy unsure type -She was given a dose of Unasyn done in the ER which will be continued as this covers both lung and urine source -Blood and urine cultures are pending -Initiate BiPAP therapy and recheck ABG in an hour -Patient creatinine is 0.8 and today on admission she is 1.32 we will continue with IV fluids she received 2 L bolus done in the ER as well as, is 150 cc/h maintenance -Lactate on admission was 3.5 on repeat she was down to 1.4 2. DM 2 with peripheral neuropathy -She is on insulin at home with 40 units of long-acting insulin twice daily -We will continue her long-acting insulin as well as sliding scale insulin -When she is out of her sepsis and her lethargic state can continue her Lyrica 3. Anxiety/depression/Schizophrenia and h/o grand mal seizures - Tegretol level is low - C/w keppra, risperidone, and seroquel once she becomes more alert DVT: Lovenox/SCDs Code Visit Inpatient E&M: 71857 Init Hosp L3
--- NOTE | 2018-06-05 15:05 | RAD_ITS ---
STUDY: X-RAY CHEST REASON FOR EXAM: Female, 47 years old. Endotracheal tube, gastric tube placement. TECHNIQUE: Portable chest AP supine COMPARISON: 06/05/2017 FINDINGS: Endotracheal tube tip within right mainstem bronchus. On subsequent images the tube was repositioned appropriately. Orogastric tube tip off the [id number] in the region of the stomach. Hazy bilateral perihilar infiltrates, bibasilar bandlike atelectasis, progressed since imaging earlier today. Normal cardiomediastinal silhouette, rachael and pleural margins. No acute osseous or upper abdominal process. RAD/Chest 1 View (Portable) IMPRESSION: Endotracheal tube tip within right mainstem bronchus subsequently properly positioned. Orogastric tube tip within stomach. Bilateral perihilar hazy infiltrates progressed compared to prior imaging earlier in the day at 06/05/2017. These probably occurred due to obstruction of the right upper lobe bronchus, and incomplete aeration of the left mainstem bronchus due to right mainstem intubation. Electronically Signed: Pavan Hogan MD at 18:17 EST Tel , Service support ,
--- NOTE | 2018-06-05 15:12 | CON.PCM_ITS ---
Problem List (1) UTI (urinary tract infection) Status: Acute (2) Pneumonia Status: Acute (3) Ulcer of finger Status: Chronic Qualifiers: Non-pressure ulcer stage: limited to breakdown of skin Qualified Code(s): L98.491 - Non-pressure chronic ulcer of skin of other sites limited to breakdown of skin (4) Leukocytosis Status: Acute (5) Dehydration Status: Acute (6) Hyperglycemia Status: Acute (7) Peripheral neuropathy Status: Chronic Qualifiers: (8) Anxiety Status: Chronic (9) Depression Status: Chronic (10) Type II diabetes mellitus Status: Chronic Qualifiers: Reason for Consult Date of Consultation: 06/05/18 Reason for Consultation: Respiratory failure History of Present Illness: The patient is a 47 year old F, with past medical history listed below, who presented to [facility] on 06/05/2018 secondary to being unresponsive. Upon arrival, EMS had to assist with bag valve ventilation. Patient was given Narcan x2 times with minimal improvement. During transport, patient reportedly had improved respiratory status. Patient's blood sugar was noted to be only 300 by EMS. Patient reportedly has no history of diabetes me llitus. Patient's reportedly was in the ER and stated patient has no history of seizures. Patient reportedly does not use any illicit drugs. In the ER, patient was noted to have a heart rate of 130 bpm. Lungs were clear bilaterally and no rashes or signs of trauma were appreciated. Patient was alert and oriented to self only. Laboratory workup showed a right lower lobe infiltrate, leukocytosis, hyperglycemia at 461 and elevated creatinine 1.32. Patient was noted to have a lactate of 3.5 and tox screen showed benzodiazepines. Initial ABG showed compensated hypercarbic respiratory failure. Patient had been given 2 L of normal saline and IV Unasyn for aspiration pneumonia. Patient was admitted to the intensive care unit as a stepdown. In the intensive care unit, patient reportedly was noted to have decreased mental status and thought to be secondary to CO2 retention. Patient was initiated on BiPAP 10/5 centimeters of water. Patient was also getting intermittent insulin dosing for hyperglycemia. At approximately 3 PM, I was called to the patient's bedside secondary to a repeat ABG showing worsening CO2 retention despite initiation of BiPAP. Patient was unable to answer any questions at that time. Patient was noted to barely be protecting her airway. Discussed possibility of increasing BiPAP settings with the team, but after review of patient's clinical situation, patient was intubated in a semi-elective fashion. Unable to perform a review of systems secondary to patient's mental status. Past Medical History Past Medical History (Chronic Problems): Chronic Problems Ulcer of finger (Chronic) Peripheral neuropathy (Chronic) Anxiety (Chronic) Depression (Chronic) Type II diabetes mellitus (Chronic) Allergies Sulfa (Sulfonamide Antibiotics) Allergy (Verified 06/05/18 09:29) Hives Home Medications: Ambulatory Orders Medication Instructions Recorded Lorazepam [Ativan] 2 mg PO TID 06/23/15 Pregabalin [Lyrica] 200 mg PO BID 10/27/15 traMADol [Ultram] 100 mg PO Q6H 10/27/15 Baclofen 10 mg PO TID PRN PRN 07/26/16 Pregabalin [Lyrica] 100 mg PO LUNCH 07/26/16 Cetirizine HCl [Zyrtec] 10 mg PO DAILY 11/12/16 Insulin Glargine,Hum.rec.anlog 40 unit SQ BID 11/12/16 [Basaglar Kwikpen U-100] Albuterol Inhaler [Ventolin Hfa 2 puff INHALATION Q4H PRN PRN 06/10/17 (SP)] Albuterol Sulfate 2.5 mg IH BID PRN 06/10/17 Carbamazepine [Tegretol] 200 mg PO DAILY 06/10/17 Fluticasone Propionate [Flovent 50 mcg NASAL BID 06/10/17 Diskus] Meloxicam [Mobic] 15 mg PO DAILY 06/10/17 Ondansetron [Zofran Odt] 4 mg PO Q8H PRN PRN 06/10/17 Oxybutynin Chloride [Ditropan Xl] 5 mg PO BID 06/10/17 Quetiapine Fumarate [Seroquel] 100 mg PO TID 06/10/17 Fexofenadine HCl 180 mg PO DAILY 06/05/18 Hydroxyzine HCl 25 mg PO QHS 06/05/18 Insulin Lispro [Humalog KwikPen] 10 unit SQ BIDCM 06/05/18 Levetiracetam 500 mg PO BID 06/05/18 Risperidone 3 mg PO BID 06/05/18 Surgical History: cholecystectomy, - - Tubal ligation. Smoking Status: Current every day smoker - *Family History Maternal History Items: No pertinent history Paternal History Items: No pertinent history Review of Systems Unable to obtain accurate/complete ROS d/t: Mental status Patient Problems: Active and Suspected Problems UTI (urinary tract infection) (Acute) Pneumonia (Acute) Objective: See HPI. At approximately 3 PM, patient was evaluated and noted to have significant rhonchi at the right base and poor protection of her airway. Patient was given 20 mg of etomidate, administered by myself, after supplies were obtained for endotracheal intubation. A size 4?0 MAC blade was used to visualize vocal cords. A 7.5 endotracheal tube was advanced to 24 cm without difficulty. Grade 1 view. Copious viscous secretions noted in the upper airway, but no focal cord edema or erythema of the epiglottis. Bilateral breath sounds, CO2 change and lack of belly sounds were noted. Condensation noted and endotracheal tube. Chest x-ray has been ordered. No complications or blood loss was noted. - Physical Exam General: - - Intubated and sedated on my arrival. Not following commands. HEENT: Atraumatic, PERRLA, EOMI, Normocephalic, - - Slight scleral injection without icterus Oral: No Gingival or Mucosal Lesions/ Ulcerations, Dry Mucosa, - - Edentulous Neck: Supple, No JVD, No Nodes, Trachea Midline Lungs: No wheeze, No rales, Diminished, Rhonchi - Right base, - - Symmetric expansion. No dullness to percussion. Cardiovascular: Normal S1, Normal S2, No murmurs, No rub noted, No Gallop, Tachycardic Abdomen: Bowel Sounds Present, Soft, Non Tender, Non-Distended Extremities: No clubbing, No cyanosis, No edema, Capillary Refill Less than 3 Seconds Skin: No rashes, No breakdown Musculoskeletal: No Tenderness to Palpation of Joints or Extremities Lymphatic: No Cervical, Supraclavicular, or Inguinal Adenopathy Neurological: Cranial nerves II-XII grossly intact, Neuro grossly intact Psych/Mental Status: Flat Affect, Restless Vital Signs Temp Pulse Resp BP Pulse Ox 37.1 C 99 14 104/76 97 06/05/18 14:00 06/05/18 14:00 06/05/18 14:00 06/05/18 14:00 06/05/18 14:00 Oxygen Flow Rate (L/min) 4 Oxygen Delivery Method Bi-pap Weight: 78.1 kg Body Mass Index (BMI) 27.8 Finger Stick Blood Glucose 456 Laboratory Tests Past 24 Hrs 06/05/18 06/05/18 06/05/18 09:00 09:00 09:00 WBC 14.0 H RBC 5.02 Hgb 14.2 Hct 44.0 MCV 87.6 MCH 28.3 MCHC 32.3 RDW 14.2 RDW Differential 45.2 H Plt Count 210 MPV 11.9 Immature Gran % (Auto) 0.500 Neut % (Auto) 73.1 H Lymph % (Auto) 17.0 L [place] % (Auto) 7.9 Eos % (Auto) 1.1 Baso % (Auto) 0.4 Absolute Neuts (auto) 10.2 H Absolute Lymphs (auto) 2.38 Total Counted Not Reportable Specimen Type Sample Site pH Bicarbonate Actual POC Total CO2 Base Excess O2 Saturation O2 % ABG pCO2 ABG pO2 Vega Test Respiration Rate O2 Delivery Device Liter Flow EPAP IPAP Blood Gas Notified Whom Blood Gas Notified Time Sodium 138 Potassium 3.9 Chloride 99 Carbon Dioxide 28.0 Anion Gap 11 BUN 11 Creatinine 1.32 H Estim Creat Clear Calc 48.26 Est GFR (MDRD) Af Amer 55 L Est GFR (MDRD) Non-Af 45 L BUN/Creatinine Ratio 8.3 L Glucose 461 H* Hemoglobin A1c Lactic Acid Calcium 9.0 Total Bilirubin 0.20 AST 28 ALT 56 Alkaline Phosphatase 108 Troponin I 0.043 Total Protein 7.3 Albumin 3.2 Globulin 4.1 Albumin/Globulin Ratio 0.8 L Urine Color Urine Clarity Urine pH Ur Specific [place] Urine Protein Urine Glucose (UA) Urine Ketones Urine Occult Blood Urine Nitrite Urine Bilirubin Urine Urobilinogen Ur Leukocyte Esterase Urine RBC Urine WBC Ur Squamous Epith Cells Urine Bacteria Urine Mucus Urine Opiates Screen Urine Methadone Screen Ur Barbiturates Screen Carbamazepine Ur Phencyclidine Scrn Ur Amphetamines Screen U Methamphetamin-MDMA U Benzodiazepines Scrn Urine Cocaine Screen U Cannabinoids Screen Ur Drug Screen Comment Ethyl Alcohol Acetone Level NEGATIVE 06/05/18 06/05/18 06/05/18 09:00 09:00 09:00 WBC RBC Hgb Hct MCV MCH MCHC RDW RDW Differential Plt Count MPV Immature Gran % (Auto) Neut % (Auto) Lymph % (Auto) [place] % (Auto) Eos % (Auto) Baso % (Auto) Absolute Neuts (auto) Absolute Lymphs (auto) Total Counted Specimen Type Sample Site pH Bicarbonate Actual POC Total CO2 Base Excess O2 Saturation O2 % ABG pCO2 ABG pO2 Vega Test Respiration Rate O2 Delivery Device Liter Flow EPAP IPAP Blood Gas Notified Whom Blood Gas Notified Time Sodium Potassium Chloride Carbon Dioxide Anion Gap BUN Creatinine Estim Creat Clear Calc Est GFR (MDRD) Af Amer Est GFR (MDRD) Non-Af BUN/Creatinine Ratio Glucose Hemoglobin A1c 12.2 H Lactic Acid Calcium Total Bilirubin AST ALT Alkaline Phosphatase Troponin I Total Protein Albumin Globulin Albumin/Globulin Ratio Urine Color Urine Clarity Urine pH Ur Specific [place] Urine Protein Urine Glucose (UA) Urine Ketones Urine Occult Blood Urine Nitrite Urine Bilirubin Urine Urobilinogen Ur Leukocyte Esterase Urine RBC Urine WBC Ur Squamous Epith Cells Urine Bacteria Urine Mucus Urine Opiates Screen Urine Methadone Screen Ur Barbiturates Screen Carbamazepine < 0.5 L Ur Phencyclidine Scrn Ur Amphetamines Screen U Methamphetamin-MDMA U Benzodiazepines Scrn Urine Cocaine Screen U Cannabinoids Screen Ur Drug Screen Comment Ethyl Alcohol < 3.0 Acetone Level 06/05/18 06/05/18 06/05/18 09:10 09:11 10:28 WBC RBC Hgb Hct MCV MCH MCHC RDW RDW Differential Plt Count MPV Immature Gran % (Auto) Neut % (Auto) Lymph % (Auto) [place] % (Auto) Eos % (Auto) Baso % (Auto) Absolute Neuts (auto) Absolute Lymphs (auto) Total Counted Specimen Type ART Sample Site L Brachial pH 7.32 L Bicarbonate Actual 25.4 POC Total CO2 27 Base Excess -1 O2 Saturation 92 L O2 % ABG pCO2 49.5 H ABG pO2 70 L Vega Test NA Respiration Rate O2 Delivery Device Nasal Can Liter Flow 2.0 EPAP IPAP Blood Gas Notified Whom ED Blood Gas Notified Time 830 Sodium Potassium Chloride Carbon Dioxide Anion Gap BUN Creatinine Estim Creat Clear Calc Est GFR (MDRD) Af Amer Est GFR (MDRD) Non-Af BUN/Creatinine Ratio Glucose Hemoglobin A1c Lactic Acid 3.5 H Calcium Total Bilirubin AST ALT Alkaline Phosphatase Troponin I Total Protein Albumin Globulin Albumin/Globulin Ratio Urine Color Yellow Urine Clarity Sl. Cloudy Urine pH 5.0 Ur Specific [place] 1.020 Urine Protein Negative Urine Glucose (UA) 1000 H Urine Ketones Negative Urine Occult Blood 10 H Urine Nitrite Positive H Urine Bilirubin Negative Urine Urobilinogen Normal Ur Leukocyte Esterase 25 H Urine RBC 0-5 SEEN Urine WBC 0-5 SEEN Ur Squamous Epith Cells 0-5 SEEN Urine Bacteria 1+ Urine Mucus 0 SEEN Urine Opiates Screen Urine Methadone Screen Ur Barbiturates Screen Carbamazepine Ur Phencyclidine Scrn Ur Amphetamines Screen U Methamphetamin-MDMA U Benzodiazepines Scrn Urine Cocaine Screen U Cannabinoids Screen Ur Drug Screen Comment Ethyl Alcohol Acetone Level 06/05/18 06/05/18 06/05/18 10:28 13:30 14:19 WBC RBC Hgb Hct MCV MCH MCHC RDW RDW Differential Plt Count MPV Immature Gran % (Auto) Neut % (Auto) Lymph % (Auto) [place] % (Auto) Eos % (Auto) Baso % (Auto) Absolute Neuts (auto) Absolute Lymphs (auto) Total Counted Specimen Type ART Sample Site R Radial pH 7.30 L Bicarbonate Actual 28.5 H POC Total CO2 30 Base Excess 2 O2 Saturation 93 L O2 % 35 ABG pCO2 57.8 H ABG pO2 74 L Vega Test POS Respiration Rate 12 O2 Delivery Device Bi / C PAP Liter Flow EPAP 5 IPAP 10 Blood Gas Notified Whom ICU Blood Gas Notified Time 1420 Sodium Potassium Chloride Carbon Dioxide Anion Gap BUN Creatinine Estim Creat Clear Calc Est GFR (MDRD) Af Amer Est GFR (MDRD) Non-Af BUN/Creatinine Ratio Glucose Hemoglobin A1c Lactic Acid 1.4 Calcium Total Bilirubin AST ALT Alkaline Phosphatase Troponin I Total Protein Albumin Globulin Albumin/Globulin Ratio Urine Color Urine Clarity Urine pH Ur Specific [place] Urine Protein Urine Glucose (UA) Urine Ketones Urine Occult Blood Urine Nitrite Urine Bilirubin Urine Urobilinogen Ur Leukocyte Esterase Urine RBC Urine WBC Ur Squamous Epith Cells Urine Bacteria Urine Mucus Urine Opiates Screen NEGATIVE Urine Methadone Screen NEGATIVE Ur Barbiturates Screen NEGATIVE Carbamazepine Ur Phencyclidine Scrn NEGATIVE Ur Amphetamines Screen NEGATIVE U Methamphetamin-MDMA NEGATIVE U Benzodiazepines Scrn POSITIVE H Urine Cocaine Screen NEGATIVE U Cannabinoids Screen NEGATIVE Ur Drug Screen Comment Ethyl Alcohol Acetone Level POC Glucose 06/05/18 06/05/18 12:45 09:00 POC Glucose 269 H 456 H* Clinical Impression(s) from Imaging Studies Brain CT 06/05/18 09:02 IMPRESSION: Normal unenhanced CT scan of the brain. Electronically Signed: Carlos Borges MD at 9:44 EST Tel [phone], Service support , Chest X-Ray 06/05/18 09:02 IMPRESSION: Patchy infiltrate/atelectasis at the lung bases worse on the right lung base. Electronically Signed: Carlos Borges MD at 9:43 EST Tel [phone], Service support , Assessment/Plan Active and Suspected Problems UTI (urinary tract infection) (Acute) Pneumonia (Acute) RECOMMENDATIONS: 1. Await chest x-ray for endotracheal tube placement 2. Continue empiric antibiotics for aspiration pneumonia 3. Obtain ABG 1 hour after intubation 4. Verify Keppra, reinitiate if patient currently on 5. Okay to reinitiate antipsychotic medications once patient is more appropriate 6. Continue every 6 blood sugars IMPRESSIONS: 1. Acute hypercarbic respiratory failure secondary to possible aspiration pneumonia Patient reportedly does have benzodiazepines at home and can take extra pills at times. Unclear if this represents hypercarbic respiratory failure secondary to benzodiazepine overdose versus underlying pneumonia with respiratory depression. [place] information is unclear at this time. Patient is on appropriate antibiotics. 2. Toxic versus metabolic encephalopathy Patient was significantly depressed mental status on presentation. Unclear if this is toxic encephalopathy from patient's benzodiazepines versus metabolic encephalopathy from hyperglycemia and hypercarbia. Repeat ABG 1 hour after intubation. Can initiate propofol and fentanyl if necessary. 3. Uncontrolled insulin-dependent diabetes mellitus with peripheral neuropathy Patient appears to be responding to frequent subcu insulin. Unclear if patient did not take her basal insulin versus an increased glucose load. We will continue to monitor closely. 4. Acute kidney injury/severe sepsis Clinical suspicion for prerenal etiology given patient's hyperglycemia and severe sepsis secondary to aspiration pneumonia. No indication for renal replacement therapy at this time. We will continue aggressive fluid resuscitation. Patient does not appear to need pressor therapy at this time. Cultures are currently pending. 5. Anxiety/depression/mood disorder versus seizure disorder/poor information Comp locates care, management, recovery and prognosis. Patient now has airway secured, but would allow patient to wake up prior to reinitiating Risperdal, Seroquel and other psychiatric medications. Verify patient is on Keppra at baseline. If this is verified as a home medication, this should be reordered. TIME: 32 minutes critical care time spent addressing patient's acute hypercarbic respiratory failure, encephalopathy, hyperglycemia, acute kidney injury, review of all data and collaboration with care team (2:50 PM to 3:30 PM) Code Visit 9xxxx: [id number] Critical care first hour
[2018-06-05] MEDS: Propofol 10MG/Ml 1,000 MG/100 ML Bottle 4.686 MG CONT INF (15:15)
--- NOTE | 2018-06-05 15:20 | NURSING ---
[address] Denise and Dr. Rider present in pt room. 1450 prep for intubation 1455 Etomidate 20mg IV push per Dr. Rider 1458 #7.5 OET 24cm at lip, good color change, sounds only on L 1505 OG placed w/out diff 1510 CXR taken, Dr. Rider present in pt room. 1518 OET pulled back 3cm to 21cm rt lip.
--- NOTE | 2018-06-05 15:25 | RAD_ITS ---
STUDY: X-RAY CHEST REASON FOR EXAM: Female, 47 years old. Orogastric tube placement. Endotracheal tube. TECHNIQUE: Portable AP supine chest. COMPARISON: 06/05/2018 FINDINGS: The endotracheal tube tip terminates approximately 3 cm cephalad of the bernie. The orogastric tube tip terminates off the [id number] in the region of the stomach, below the esophagogastric junction. Persistent hazy perihilar for trace bilaterally with bandlike atelectasis at the lung bases bilaterally without apparent effusion or pneumothorax. Normal cardiomediastinal silhouette, rachael and pleural margins. No acute osseous or upper abdominal process. RAD/Chest 1 View (Portable) IMPRESSION: Stable bilateral infiltrates. Bibasilar atelectasis. Support devices as described above. The endotracheal tube tip has been removed from the right mainstem bronchus and now lies above the level of the bernie. Electronically Signed: Pavan Hogan MD at 18:15 EST Tel , Service support ,
[2018-06-05 16:20] LABS: Allen Test POS; Base Excess 3 mmol/L (-2 to +2); Blood Gas Specimen Type ART; FI02 35; Mode A-C; O2 Delivery Device Vent; PEEP 5; PO2 65 mmHG (75-100); RR 12; SITE R Radial; SO2 91 % (95-99); Time Given 1615; Total Carbon Dioxide 30 mmol/L; Vt 450; pCO2 49.1 mmHg (35-45); pH 7.37 (7.35-7.45)
[2018-06-05 18:39] LABS: CPK Total, Creatine Kinase 52 U/L (26-192); Triglycerides 293 mg/dL
[2018-06-05] MEDS: 0.9% Normal Saline 1,000 ML 150 ML IV (18:40)
[2018-06-05 18:46] LABS: Bedside Glucose 88 mg/dL (70-110)
--- NOTE | 2018-06-05 19:34 | NURSING ---
education re chronic illness deferred till acute illness resolving
[2018-06-05] MEDS: Chlorhexidine 15 ML PO (20:37)
[2018-06-05 22:21] LABS: Bedside Glucose 84 mg/dL (70-110)
[2018-06-05] MEDS: Acetaminophen 325 MG Tablet 650 MG PO (22:27)
[2018-06-06] VITALS (22 sets, daily range): BP systolic 92–159; BP diastolic 61–103; PULSE 67–91; RESP 8–19; TEMP 36.6–38.1; O2SAT 92–98
[2018-06-06] MEDS: Propofol 10MG/Ml 1,000 MG/100 ML Bottle 4.686 MG CONT INF (01:30)
[2018-06-06] MEDS: 0.9% Normal Saline 1,000 ML 150 ML IV (01:30)
[2018-06-06] MEDS: CHLORHEXIDINE GLUC 2% CLOTH 1 EACH TOWELETTE TOPICAL (01:31)
[2018-06-06 01:46] LABS: Bedside Glucose 101 mg/dL (70-110)
[2018-06-06] MEDS: 0.9% NaCl Peripheral Flush Adult/Peds IV (04:03)
[2018-06-06 04:48] LABS: Absolute Lymphocyte Count 3.06 X10^3/ul (0.83-4.51); Absolute Neutrophil Count 7.6 X10^3/uL (2.0-7.7); Basophil# 0.03 X10^3/uL; Basophil% 0.3 % (0-1); Eosinophil# 0.07 X10^3/uL; Eosinophils% 0.6 % (0-5); Hematocrit 36.6 % (37-47); Hemoglobin 11.7 g/dl (12.0-15.0); Lymphocyte # 3.06 X10^3/ul (4.0); Lymphocyte % 25.6 % (19-41); Mean Corpuscular Volume 87.6 fL (81-99); Mean Platelet Vol. 12.4 fl (6.2-12.0); Monocyte# 1.22 X10^3/uL; Monocyte% 10.2 % (0-10); Neutrophil # 7.55 X10^3/uL (2.7-7.7); Platelet Count 185 K/mm3 (150-450); RBC Distribution Width CV 14.3 % (11.6-14.6); RBC Distribution Width SD 45.2 fl (35.1-43.9); Red Blood Count 4.18 M/mm3 (4.2-5.4)
[2018-06-06 04:59] LABS: POSITIVE COUNT NO; POSITIVE DIFFERENTIAL NO; POSITIVE MORPHOLOGY NO
[2018-06-06 05:10] LABS: Anion Gap 6 (5-15); BUN 9 mg/dL (7-18); BUN/Creat Ratio 13.9 RATIO (10-20); Calcium,Total 7.5 mg/dL (8.5-10.1); Chloride 112 mmol/L (98-107); Cholesterol 122 mg/dL (200); Creatinine, Serum 0.65 mg/dL (0.55-1.02); EST Glomerular Filtration Rate 103 mL/min (>60); Est Glom Filt Rate - Afr Amer 125 mL/min (>60); Estimated Creatinine Clearance 98.01 ml/min; Glucose 114 mg/dL (74-106); High Density Lipoprotein 28 mg/dL; Potassium 3.4 mmol/L (3.5-5.1); Sodium Level 145 mmol/L (136-145); Triglycerides 194 mg/dL; Very Low Density Lipoprotein 39 mg/dL (5-40)
[2018-06-06 05:21] LABS: Bedside Glucose 120 mg/dL (70-110)
[2018-06-06 06:55] LABS: Base Excess -1 mmol/L (-2 to +2); Bicarbonate 22.5 mmol/L (22-26); Blood Gas Specimen Type ART; FI02 35; Mode CPAP PS; O2 Delivery Device Vent; PEEP 5; PO2 75 mmHG (75-100); PS 5; SITE R Brachial; SO2 96 % (95-99); Time Given 643; Total Carbon Dioxide 23 mmol/L; pCO2 31.4 mmHg (35-45); pH 7.46 (7.35-7.45)
--- NOTE | 2018-06-06 07:08 | PN_ITS ---
Subjective: Patient did okay overnight. No acute issues were reported. Patient did have a fever, but was responsive to Tylenol therapy. Patient was able to be placed on a spontaneous breathing trial this morning. Patient reported no dyspnea and was following commands appropriately. Objective: ABG at the end of spontaneous breathing trial was acceptable. Patient was extubated under my direct supervision without complication. General: Alert, Cooperative, No apparent distress, - - Appears older than stated age. HEENT: Atraumatic, Normocephalic, - - Clouding of the left cornea Oral: Moist Mucosa, No Gingival or Mucosal Lesions/ Ulcerations, - - Edentulous Neck: Supple, No JVD, No Nodes, Trachea Midline Lungs: No wheeze, No rales, Diminished, Rhonchi - Right base, - - Symmetric expansion. No dullness to percussion. Cardiovascular: Regular rate, Regular Rhythm, Normal S1, Normal S2, No murmurs, No rub noted, No Gallop, - - Sinus arrhythmia noted overnight on telemetry Abdomen: Bowel Sounds Present, Soft, Non Tender, Non-Distended, Obese Extremities: No clubbing, No cyanosis, No edema, Capillary Refill Less than 3 Seconds Skin: No rashes, No breakdown Musculoskeletal: No Tenderness to Palpation of Joints or Extremities Lymphatic: No Cervical, Supraclavicular, or Inguinal Adenopathy Neurological: Neuro grossly intact, Motor Exam 5/5 strength throughout Psych/Mental Status: Normal Affect, Appropriate Vital Signs Temp Pulse Resp BP Pulse Ox 37.3 C 91 17 159/92 H 98 06/06/18 06:00 06/06/18 06:00 06/06/18 06:00 06/06/18 06:00 06/06/18 06:00 Oxygen Flow Rate (L/min) 4 Oxygen Delivery Method Mechanical Ventilator Weight: 80.3 kg Body Mass Index (BMI) 27.8 Finger Stick Blood Glucose 456 Intake and Output for Last 24 Hours 06/04/18 06/05/18 06/06/18 23:59 23:59 23:59 Intake Total 910 / 910 2162.5 / 2162.5 Output Total 775 / 775 400 / 400 Balance 135 / 135 1762.5 / 1762.5 Labs (Last 48 Hours) 06/05/18 06/05/18 06/05/18 09:00 09:00 09:00 WBC 14.0 H RBC 5.02 Hgb 14.2 Hct 44.0 MCV 87.6 MCH 28.3 MCHC 32.3 RDW 14.2 RDW Differential 45.2 H Plt Count 210 MPV 11.9 Immature Gran % (Auto) 0.500 Neut % (Auto) 73.1 H Lymph % (Auto) 17.0 L [place] % (Auto) 7.9 Eos % (Auto) 1.1 Baso % (Auto) 0.4 Absolute Neuts (auto) 10.2 H Absolute Lymphs (auto) 2.38 Total Counted Not Reportable Specimen Type Sample Site pH Bicarbonate Actual POC Total CO2 Base Excess O2 Saturation O2 % ABG pCO2 ABG pO2 Vega Test Respiration Rate O2 Delivery Device Liter Flow Vent Mode Tidal Volume POC PEEP POC Pressure Suppt EPAP IPAP Blood Gas Notified Whom Blood Gas Notified Time Sodium 138 Potassium 3.9 Chloride 99 Carbon Dioxide 28.0 Anion Gap 11 BUN 11 Creatinine 1.32 H Estim Creat Clear Calc 48.26 Est GFR (MDRD) Af Amer 55 L Est GFR (MDRD) Non-Af 45 L BUN/Creatinine Ratio 8.3 L Glucose 461 H* Hemoglobin A1c Lactic Acid Calcium 9.0 Total Bilirubin 0.20 AST 28 ALT 56 Alkaline Phosphatase 108 Total Creatine Kinase Troponin I 0.043 Total Protein 7.3 Albumin 3.2 Globulin 4.1 Albumin/Globulin Ratio 0.8 L Triglycerides Cholesterol LDL Cholesterol VLDL Cholesterol HDL Cholesterol Urine Color Urine Clarity Urine pH Ur Specific [place] Urine Protein Urine Glucose (UA) Urine Ketones Urine Occult Blood Urine Nitrite Urine Bilirubin Urine Urobilinogen Ur Leukocyte Esterase Urine RBC Urine WBC Ur Squamous Epith Cells Urine Bacteria Urine Mucus Urine Opiates Screen Urine Methadone Screen Ur Barbiturates Screen Carbamazepine Ur Phencyclidine Scrn Ur Amphetamines Screen U Methamphetamin-MDMA U Benzodiazepines Scrn Urine Cocaine Screen U Cannabinoids Screen Ur Drug Screen Comment Ethyl Alcohol Acetone Level NEGATIVE POC Glucose 06/05/18 06/05/18 06/05/18 09:00 09:00 09:00 WBC RBC Hgb Hct MCV MCH MCHC RDW RDW Differential Plt Count MPV Immature Gran % (Auto) Neut % (Auto) Lymph % (Auto) [place] % (Auto) Eos % (Auto) Baso % (Auto) Absolute Neuts (auto) Absolute Lymphs (auto) Total Counted Specimen Type Sample Site pH Bicarbonate Actual POC Total CO2 Base Excess O2 Saturation O2 % ABG pCO2 ABG pO2 Vega Test Respiration Rate O2 Delivery Device Liter Flow Vent Mode Tidal Volume POC PEEP POC Pressure Suppt EPAP IPAP Blood Gas Notified Whom Blood Gas Notified Time Sodium Potassium Chloride Carbon Dioxide Anion Gap BUN Creatinine Estim Creat Clear Calc Est GFR (MDRD) Af Amer Est GFR (MDRD) Non-Af BUN/Creatinine Ratio Glucose Hemoglobin A1c Lactic Acid Calcium Total Bilirubin AST ALT Alkaline Phosphatase Total Creatine Kinase Troponin I Total Protein Albumin Globulin Albumin/Globulin Ratio Triglycerides Cholesterol LDL Cholesterol VLDL Cholesterol HDL Cholesterol Urine Color Urine Clarity Urine pH Ur Specific [place] Urine Protein Urine Glucose (UA) Urine Ketones Urine Occult Blood Urine Nitrite Urine Bilirubin Urine Urobilinogen Ur Leukocyte Esterase Urine RBC Urine WBC Ur Squamous Epith Cells Urine Bacteria Urine Mucus Urine Opiates Screen Urine Methadone Screen Ur Barbiturates Screen Carbamazepine < 0.5 L Ur Phencyclidine Scrn Ur Amphetamines Screen U Methamphetamin-MDMA U Benzodiazepines Scrn Urine Cocaine Screen U Cannabinoids Screen Ur Drug Screen Comment Ethyl Alcohol < 3.0 Acetone Level POC Glucose 456 H* 06/05/18 06/05/18 06/05/18 09:00 09:00 09:10 WBC RBC Hgb Hct MCV MCH MCHC RDW RDW Differential Plt Count MPV Immature Gran % (Auto) Neut % (Auto) Lymph % (Auto) [place] % (Auto) Eos % (Auto) Baso % (Auto) Absolute Neuts (auto) Absolute Lymphs (auto) Total Counted Specimen Type Sample Site pH Bicarbonate Actual POC Total CO2 Base Excess O2 Saturation O2 % ABG pCO2 ABG pO2 Vega Test Respiration Rate O2 Delivery Device Liter Flow Vent Mode Tidal Volume POC PEEP POC Pressure Suppt EPAP IPAP Blood Gas Notified Whom Blood Gas Notified Time Sodium Potassium Chloride Carbon Dioxide Anion Gap BUN Creatinine Estim Creat Clear Calc Est GFR (MDRD) Af Amer Est GFR (MDRD) Non-Af BUN/Creatinine Ratio Glucose Hemoglobin A1c 12.2 H Lactic Acid 3.5 H Calcium Total Bilirubin AST ALT Alkaline Phosphatase Total Creatine Kinase 52 Troponin I Total Protein Albumin Globulin Albumin/Globulin Ratio Triglycerides 293 H Cholesterol LDL Cholesterol VLDL Cholesterol HDL Cholesterol Urine Color Urine Clarity Urine pH Ur Specific [place] Urine Protein Urine Glucose (UA) Urine Ketones Urine Occult Blood Urine Nitrite Urine Bilirubin Urine Urobilinogen Ur Leukocyte Esterase Urine RBC Urine WBC Ur Squamous Epith Cells Urine Bacteria Urine Mucus Urine Opiates Screen Urine Methadone Screen Ur Barbiturates Screen Carbamazepine Ur Phencyclidine Scrn Ur Amphetamines Screen U Methamphetamin-MDMA U Benzodiazepines Scrn Urine Cocaine Screen U Cannabinoids Screen Ur Drug Screen Comment Ethyl Alcohol Acetone Level POC Glucose 06/05/18 06/05/18 06/05/18 09:11 10:28 10:28 WBC RBC Hgb Hct MCV MCH MCHC RDW RDW Differential Plt Count MPV Immature Gran % (Auto) Neut % (Auto) Lymph % (Auto) [place] % (Auto) Eos % (Auto) Baso % (Auto) Absolute Neuts (auto) Absolute Lymphs (auto) Total Counted Specimen Type ART Sample Site L Brachial pH 7.32 L Bicarbonate Actual 25.4 POC Total CO2 27 Base Excess -1 O2 Saturation 92 L O2 % ABG pCO2 49.5 H ABG pO2 70 L Vega Test NA Respiration Rate O2 Delivery Device Nasal Can Liter Flow 2.0 Vent Mode Tidal Volume POC PEEP POC Pressure Suppt EPAP IPAP Blood Gas Notified Whom ED MD Blood Gas Notified Time 830 Sodium Potassium Chloride Carbon Dioxide Anion Gap BUN Creatinine Estim Creat Clear Calc Est GFR (MDRD) Af Amer Est GFR (MDRD) Non-Af BUN/Creatinine Ratio Glucose Hemoglobin A1c Lactic Acid Calcium Total Bilirubin AST ALT Alkaline Phosphatase Total Creatine Kinase Troponin I Total Protein Albumin Globulin Albumin/Globulin Ratio Triglycerides Cholesterol LDL Cholesterol VLDL Cholesterol HDL Cholesterol Urine Color Yellow Urine Clarity Sl. Cloudy Urine pH 5.0 Ur Specific [place] 1.020 Urine Protein Negative Urine Glucose (UA) 1000 H Urine Ketones Negative Urine Occult Blood 10 H Urine Nitrite Positive H Urine Bilirubin Negative Urine Urobilinogen Normal Ur Leukocyte Esterase 25 H Urine RBC 0-5 SEEN Urine WBC 0-5 SEEN Ur Squamous Epith Cells 0-5 SEEN Urine Bacteria 1+ Urine Mucus 0 SEEN Urine Opiates Screen NEGATIVE Urine Methadone Screen NEGATIVE Ur Barbiturates Screen NEGATIVE Carbamazepine Ur Phencyclidine Scrn NEGATIVE Ur Amphetamines Screen NEGATIVE U Methamphetamin-MDMA NEGATIVE U Benzodiazepines Scrn POSITIVE H Urine Cocaine Screen NEGATIVE U Cannabinoids Screen NEGATIVE Ur Drug Screen Comment Ethyl Alcohol Acetone Level POC Glucose 06/05/18 06/05/18 06/05/18 12:45 13:30 14:19 WBC RBC Hgb Hct MCV MCH MCHC RDW RDW Differential Plt Count MPV Immature Gran % (Auto) Neut % (Auto) Lymph % (Auto) [place] % (Auto) Eos % (Auto) Baso % (Auto) Absolute Neuts (auto) Absolute Lymphs (auto) Total Counted Specimen Type ART Sample Site R Radial pH 7.30 L Bicarbonate Actual 28.5 H POC Total CO2 30 Base Excess 2 O2 Saturation 93 L O2 % 35 ABG pCO2 57.8 H ABG pO2 74 L Vega Test POS Respiration Rate 12 O2 Delivery Device Bi / C PAP Liter Flow Vent Mode Tidal Volume POC PEEP POC Pressure Suppt EPAP 5 IPAP 10 Blood Gas Notified Whom ICU MD Blood Gas Notified Time 1420 Sodium Potassium Chloride Carbon Dioxide Anion Gap BUN Creatinine Estim Creat Clear Calc Est GFR (MDRD) Af Amer Est GFR (MDRD) Non-Af BUN/Creatinine Ratio Glucose Hemoglobin A1c Lactic Acid 1.4 Calcium Total Bilirubin AST ALT Alkaline Phosphatase Total Creatine Kinase Troponin I Total Protein Albumin Globulin Albumin/Globulin Ratio Triglycerides Cholesterol LDL Cholesterol VLDL Cholesterol HDL Cholesterol Urine Color Urine Clarity Urine pH Ur Specific [place] Urine Protein Urine Glucose (UA) Urine Ketones Urine Occult Blood Urine Nitrite Urine Bilirubin Urine Urobilinogen Ur Leukocyte Esterase Urine RBC Urine WBC Ur Squamous Epith Cells Urine Bacteria Urine Mucus Urine Opiates Screen Urine Methadone Screen Ur Barbiturates Screen Carbamazepine Ur Phencyclidine Scrn Ur Amphetamines Screen U Methamphetamin-MDMA U Benzodiazepines Scrn Urine Cocaine Screen U Cannabinoids Screen Ur Drug Screen Comment Ethyl Alcohol Acetone Level POC Glucose 269 H 06/05/18 06/05/18 06/05/18 16:14 18:29 22:15 WBC RBC Hgb Hct MCV MCH MCHC RDW RDW Differential Plt Count MPV Immature Gran % (Auto) Neut % (Auto) Lymph % (Auto) [place] % (Auto) Eos % (Auto) Baso % (Auto) Absolute Neuts (auto) Absolute Lymphs (auto) Total Counted Specimen Type ART Sample Site R Radial pH 7.37 Bicarbonate Actual 28.0 H POC Total CO2 30 Base Excess 3 H O2 Saturation 91 L O2 % 35 ABG pCO2 49.1 H ABG pO2 65 L Vega Test POS Respiration Rate 12 O2 Delivery Device Vent Liter Flow Vent Mode A-C Tidal Volume 450 POC PEEP 5 POC Pressure Suppt EPAP IPAP Blood Gas Notified Whom ICU MD Blood Gas Notified Time 1615 Sodium Potassium Chloride Carbon Dioxide Anion Gap BUN Creatinine Estim Creat Clear Calc Est GFR (MDRD) Af Amer Est GFR (MDRD) Non-Af BUN/Creatinine Ratio Glucose Hemoglobin A1c Lactic Acid Calcium Total Bilirubin AST ALT Alkaline Phosphatase Total Creatine Kinase Troponin I Total Protein Albumin Globulin Albumin/Globulin Ratio Triglycerides Cholesterol LDL Cholesterol VLDL Cholesterol HDL Cholesterol Urine Color Urine Clarity Urine pH Ur Specific [place] Urine Protein Urine Glucose (UA) Urine Ketones Urine Occult Blood Urine Nitrite Urine Bilirubin Urine Urobilinogen Ur Leukocyte Esterase Urine RBC Urine WBC Ur Squamous Epith Cells Urine Bacteria Urine Mucus Urine Opiates Screen Urine Methadone Screen Ur Barbiturates Screen Carbamazepine Ur Phencyclidine Scrn Ur Amphetamines Screen U Methamphetamin-MDMA U Benzodiazepines Scrn Urine Cocaine Screen U Cannabinoids Screen Ur Drug Screen Comment Ethyl Alcohol Acetone Level POC Glucose 88 84 06/06/18 06/06/18 06/06/18 01:39 04:00 04:00 WBC 12.0 H RBC 4.18 L Hgb 11.7 L Hct 36.6 L MCV 87.6 MCH 28.0 MCHC 32.0 RDW 14.3 RDW Differential 45.2 H Plt Count 185 MPV 12.4 H Immature Gran % (Auto) 0.300 Neut % (Auto) 63.0 Lymph % (Auto) 25.6 [place] % (Auto) 10.2 H Eos % (Auto) 0.6 Baso % (Auto) 0.3 Absolute Neuts (auto) 7.6 Absolute Lymphs (auto) 3.06 Total Counted Not Reportable Specimen Type Sample Site pH Bicarbonate Actual POC Total CO2 Base Excess O2 Saturation O2 % ABG pCO2 ABG pO2 Vega Test Respiration Rate O2 Delivery Device Liter Flow Vent Mode Tidal Volume POC PEEP POC Pressure Suppt EPAP IPAP Blood Gas Notified Whom Blood Gas Notified Time Sodium 145 Potassium 3.4 L Chloride 112 H Carbon Dioxide 27.0 Anion Gap 6 BUN 9 Creatinine 0.65 Estim Creat Clear Calc 98.01 Est GFR (MDRD) Af Amer 125 Est GFR (MDRD) Non-Af 103 BUN/Creatinine Ratio 13.9 Glucose 114 H Hemoglobin A1c Lactic Acid Calcium 7.5 L Total Bilirubin AST ALT Alkaline Phosphatase Total Creatine Kinase Troponin I Total Protein Albumin Globulin Albumin/Globulin Ratio Triglycerides 194 Cholesterol 122 LDL Cholesterol 55 VLDL Cholesterol 39 HDL Cholesterol 28 L Urine Color Urine Clarity Urine pH Ur Specific [place] Urine Protein Urine Glucose (UA) Urine Ketones Urine Occult Blood Urine Nitrite Urine Bilirubin Urine Urobilinogen Ur Leukocyte Esterase Urine RBC Urine WBC Ur Squamous Epith Cells Urine Bacteria Urine Mucus Urine Opiates Screen Urine Methadone Screen Ur Barbiturates Screen Carbamazepine Ur Phencyclidine Scrn Ur Amphetamines Screen U Methamphetamin-MDMA U Benzodiazepines Scrn Urine Cocaine Screen U Cannabinoids Screen Ur Drug Screen Comment Ethyl Alcohol Acetone Level POC Glucose 101 06/06/18 06/06/18 05:11 06:53 WBC RBC Hgb Hct MCV MCH MCHC RDW RDW Differential Plt Count MPV Immature Gran % (Auto) Neut % (Auto) Lymph % (Auto) [place] % (Auto) Eos % (Auto) Baso % (Auto) Absolute Neuts (auto) Absolute Lymphs (auto) Total Counted Specimen Type ART Sample Site R Brachial pH 7.46 H Bicarbonate Actual 22.5 POC Total CO2 23 Base Excess -1 O2 Saturation 96 O2 % 35 ABG pCO2 31.4 L ABG pO2 75 Vega Test NA Respiration Rate O2 Delivery Device Vent Liter Flow Vent Mode CPAP PS Tidal Volume POC PEEP 5 POC Pressure Suppt 5 EPAP IPAP Blood Gas Notified Whom ICU Blood Gas Notified Time 643 Sodium Potassium Chloride Carbon Dioxide Anion Gap BUN Creatinine Estim Creat Clear Calc Est GFR (MDRD) Af Amer Est GFR (MDRD) Non-Af BUN/Creatinine Ratio Glucose Hemoglobin A1c Lactic Acid Calcium Total Bilirubin AST ALT Alkaline Phosphatase Total Creatine Kinase Troponin I Total Protein Albumin Globulin Albumin/Globulin Ratio Triglycerides Cholesterol LDL Cholesterol VLDL Cholesterol HDL Cholesterol Urine Color Urine Clarity Urine pH Ur Specific [place] Urine Protein Urine Glucose (UA) Urine Ketones Urine Occult Blood Urine Nitrite Urine Bilirubin Urine Urobilinogen Ur Leukocyte Esterase Urine RBC Urine WBC Ur Squamous Epith Cells Urine Bacteria Urine Mucus Urine Opiates Screen Urine Methadone Screen Ur Barbiturates Screen Carbamazepine Ur Phencyclidine Scrn Ur Amphetamines Screen U Methamphetamin-MDMA U Benzodiazepines Scrn Urine Cocaine Screen U Cannabinoids Screen Ur Drug Screen Comment Ethyl Alcohol Acetone Level POC Glucose 120 H Clinical Impression(s) from Imaging Studies Brain CT 06/05/18 09:02 IMPRESSION: Normal unenhanced CT scan of the brain. Electronically Signed: Carlos Borges MD at 9:44 EST Tel [phone], Service support , Chest X-Ray 06/05/18 09:02 IMPRESSION: Patchy infiltrate/atelectasis at the lung bases worse on the right lung base. Electronically Signed: Carlos Borges MD at 9:43 EST Tel [phone], Service support , Chest X-Ray 06/05/18 15:05 IMPRESSION: Endotracheal tube tip within right mainstem bronchus subsequently properly positioned. Orogastric tube tip within stomach. Bilateral perihilar hazy infiltrates progressed compared to prior imaging earlier in the day at 06/05/2017. These probably occurred due to obstruction of the right upper lobe bronchus, and incomplete aeration of the left mainstem bronchus due to right mainstem intubation. Electronically Signed: Pavan Hogan MD at 18:17 EST Tel , Service support , Chest X-Ray 06/05/18 15:25 IMPRESSION: Stable bilateral infiltrates. Bibasilar atelectasis. Support devices as described above. The endotracheal tube tip has been removed from the right mainstem bronchus and now lies above the level of the [place]. Electronically Signed: Pavan Hogan MD at 18:15 EST Tel , Service support , Medical Necessity - Tobacco Use Smoking Status: Current every day smoker Tobacco Use: Cigarettes Assessment/Plan All Active Problems (Last Updated 06/05/18 @ 21:10 by Molly Partida) Hyperglycemia (Acute) Dehydration (Acute) Leukocytosis (Acute) UTI (urinary tract infection) (Acute) Pneumonia (Acute) Blind left eye (Resolved) RECOMMENDATIONS: 1. Bedside swallow evaluation 2. Continue empiric antibiotics for aspiration pneumonia 3. Aggressive pulmonary toileting 4. Reinitiate baseline medications if passes swallow evaluation 5. Transition blood sugars to q. before meals and at bedtime following bedside swallow 6. Increase activity as tolerated IMPRESSIONS: 1. Acute hypercarbic respiratory failure secondary to possible aspiration pneumonia Patient reportedly does have benzodiazepines at home and can take extra pills at times. Unclear if this represents hypercarbic respiratory failure secondary to benzodiazepine overdose versus underlying pneumonia with respiratory depression. Patient appears to have responded well to mechanical ventilation over a short period of time. This would be suggestive of benzod iazepine overdose. Wean oxygen as tolerated. Aggressive pulmonary toileting as patient appears to have an element of aspiration pneumonia. 2. Toxic versus metabolic encephalopathy Patient was significantly depressed mental status on presentation. Unclear if this is toxic encephalopathy from patient's benzodiazepines versus metabolic encephalopathy from hyperglycemia and hypercarbia. Patient's mentation is much improved this morning. Patient hyperventilating this morning, likely secondary to irritation of intubation. 3. Uncontrolled insulin-dependent diabetes mellitus with peripheral neuropathy Much better control at this time. Patient appears to be responding to frequent subcu insulin. Unclear if patient did not take her basal insulin versus an increased glucose load. We will continue to monitor closely. Transition to q. before meals and at bedtime blood sugars if passes swallow evaluation 4. Acute kidney injury/severe sepsis RESOLVED > clinical suspicion for prerenal etiology given patient's hyperglycemia and severe sepsis secondary to aspiration pneumonia. No indication for renal replacement therapy at this time. We will continue aggressive fluid resuscitation. Patient does not appear to need pressor therapy at this time. Cultures are currently pending. 5. Anxiety/depression/mood disorder versus seizure disorder/poor information Complicates care, management, recovery and prognosis. Patient now has airway secured, but would allow patient to wake up prior to reinitiating Risperdal, Seroquel and other psychiatric medications. Verify patient is on Keppra at baseline. If this is verified as a home medication, this should be reordered. TIME: 33 minutes critical care time spent addressing patient's acute hypercarbic respiratory failure, encephalopathy, hyperglycemia, acute kidney injury, review of all data and collaboration with care team (6 AM to 7 AM) Addendum 9:55 AM: Patient has responded well to extubation. Patient is currently on room air. Pablo johnson did pass a swallow evaluation and home medications have been reinitiated. Patient has been placed on q. before meals and at bedtime blood sugars and is tolerating well. Patient would be medically stabilized for crisis evaluation in my opinion Code Visit 9xxxx: [id number] Critical care first hour
--- NOTE | 2018-06-06 07:08 | NURSING ---
Pt passed vent weaning, and is currently extubated, as of 0700. Speaking in complete sentences and on 2L NC. Tolerating well and maintaining pulse ox of mid 90's
--- NOTE | 2018-06-06 08:23 | PN_ITS ---
Patient Problems: Active and Suspected Problems (Last Updated 06/05/18 @ 21:10 by Molly Partida) UTI (urinary tract infection) (Acute) Pneumonia (Acute) Subjective: Alert and oriented today she was extubated this morning and is maintaining oxygen saturations on just nasal cannula. Vitals/I&O's: Vital Signs Temp Pulse Resp BP Pulse Ox 98.9 F 89 14 134/85 H 97 06/06/18 08:02 06/06/18 08:02 06/06/18 08:02 06/06/18 08:02 06/06/18 08:02 Oxygen Flow Rate (L/min) 2 Oxygen Delivery Method Room Air Weight: 177 lb 0.499 oz Body Mass Index (BMI) 27.8 Finger Stick Blood Glucose 456 Intake and Output for Last 24 Hours 06/04/18 06/05/18 06/06/18 23:59 23:59 23:59 Intake Total 910 / 910 2162.5 / 2162.5 Output Total 775 / 775 400 / 400 Balance 135 / 135 1762.5 / 1762.5 General: Alert, Oriented x3, Cooperative, No apparent distress HEENT: Atraumatic, EOMI, Normocephalic Oral: Moist Mucosa Neck: Supple, No JVD, Trachea Midline Lungs: Clear to auscultation, Normal air movement, No rhonchi, No wheeze, No rales, Diminished Cardiovascular: Regular rate, Regular Rhythm, Normal S1, Normal S2, No murmurs, No rub noted, No Gallop Abdomen: Soft, Non Tender, Non-Distended, No Hepato-splenomegaly Extremities: No edema, Capillary Refill Less than 3 Seconds Skin: No rashes, No breakdown Neurological: Neuro grossly intact, Sensory exam intact to light touch and pain Psych/Mental Status: Normal Affect, Appropriate Laboratory Results 06/05/18 09:00: WBC 14.0 H, RBC 5.02, Hgb 14.2, Hct 44.0, MCV 87.6, MCH 28.3, MCHC 32.3, RDW 14.2, RDW Differential 45.2 H, Plt Count 210, MPV 11.9, Immature Gran % (Auto) 0.500, Neut % (Auto) 73.1 H, Lymph % (Auto) 17.0 L, [place] % (Auto) 7.9, Eos % (Auto) 1.1, Baso % (Auto) 0.4, Absolute Neuts (auto) 10.2 H, Absolute Lymphs (auto) 2.38, Total Counted Not Reportable 06/05/18 09:00: Sodium 138, Potassium 3.9, Chloride 99, Carbon Dioxide 28.0, Anion Gap 11, BUN 11, Creatinine 1.32 H, Estim Creat Clear Calc 48.26, Est GFR (MDRD) Af Amer 55 L, Est GFR (MDRD) Non-Af 45 L, BUN/Creatinine Ratio 8.3 L, Glucose 461 H*, Calcium 9.0, Total Bilirubin 0.20, AST 28, ALT 56, Alkaline Phosphatase 108, Troponin I 0.043, Total Protein 7.3, Albumin 3.2, Globulin 4.1, Albumin/Globulin Ratio 0.8 L 06/05/18 09:00: Acetone Level NEGATIVE 06/05/18 09:00: Ethyl Alcohol < 3.0 06/05/18 09:00: POC Glucose 456 H* 06/05/18 09:00: Carbamazepine < 0.5 L 06/05/18 09:00: Hemoglobin A1c 12.2 H 06/05/18 09:00: Total Creatine Kinase 52, Triglycerides 293 H 06/05/18 09:10: Lactic Acid 3.5 H 06/05/18 09:11: Specimen Type ART, Sample Site L Brachial, pH 7.32 L, Bicarbonate Actual 25.4, POC Total CO2 27, Base Excess -1, O2 Saturation 92 L, ABG pCO2 49.5 H, ABG pO2 70 L, Vega Test NA, O2 Delivery Device Nasal Can, Liter Flow 2.0, Blood Gas Notified Whom ED , Blood Gas Notified Time 830 06/05/18 10:28: Urine Color Yellow, Urine Clarity Sl. Cloudy, Urine pH 5.0, Ur Specific [place] 1.020, Urine Protein Negative, Urine Glucose (UA) 1000 H, Urine Ketones Negative, Urine Occult Blood 10 H, Urine Nitrite Positive H, Urine Bilirubin Negative, Urine Urobilinogen Normal, Ur Leukocyte Esterase 25 H, Urine RBC 0-5 SEEN, Urine WBC 0-5 SEEN, Ur Squamous Epith Cells 0-5 SEEN, Urine Bacteria 1+, Urine Mucus 0 SEEN 06/05/18 10:28: Urine Opiates Screen NEGATIVE, Urine Methadone Screen NEGATIVE, Ur Barbiturates Screen NEGATIVE, Ur Phencyclidine Scrn NEGATIVE, Ur Amphetamines Screen NEGATIVE, U Methamphetamin-MDMA NEGATIVE, U Benzodiazepines Scrn POSITIVE H, Urine Cocaine Screen NEGATIVE, U Cannabinoids Screen NEGATIVE, Ur Drug Screen Comment 06/05/18 12:45: POC Glucose 269 H 06/05/18 13:30: Lactic Acid 1.4 06/05/18 14:19: Specimen Type ART, Sample Site R Radial, pH 7.30 L, Bicarbonate Actual 28.5 H, POC Total CO2 30, Base Excess 2, O2 Saturation 93 L, O2 % 35, ABG pCO2 57.8 H, ABG pO2 74 L, Vega Test POS, Respiration Rate 12, O2 Delivery Device Bi / C PAP, EPAP 5, IPAP 10, Blood Gas Notified Whom ICU MD, Blood Gas Notified Time 1420 06/05/18 16:14: Specimen Type ART, Sample Site R Radial, pH 7.37, Bicarbonate Actual 28.0 H, POC Total CO2 30, Base Excess 3 H, O2 Saturation 91 L, O2 % 35, ABG pCO2 49.1 H, ABG pO2 65 L, Vega Test POS, Respiration Rate 12, O2 Delivery Device Vent, Vent Mode A-C, Tidal Volume 450, POC PEEP 5, Blood Gas Notified Whom ICU MD, Blood Gas Notified Time 1615 06/05/18 18:29: POC Glucose 88 06/05/18 22:15: POC Glucose 84 06/06/18 01:39: POC Glucose 101 06/06/18 04:00: WBC 12.0 H, RBC 4.18 L, Hgb 11.7 L, Hct 36.6 L, MCV 87.6, MCH 28.0, MCHC 32.0, RDW 14.3, RDW Differential 45.2 H, Plt Count 185, MPV 12.4 H, Immature Gran % (Auto) 0.300, Neut % (Auto) 63.0, Lymph % (Auto) 25.6, [place] % (Auto) 10.2 H, Eos % (Auto) 0.6, Baso % (Auto) 0.3, Absolute Neuts (auto) 7.6, Absolute Lymphs (auto) 3.06, Total Counted Not Reportable 06/06/18 04:00: Sodium 145, Potassium 3.4 L, Chloride 112 H, Carbon Dioxide 27.0, Anion Gap 6, BUN 9, Creatinine 0.65, Estim Creat Clear Calc 98.01, Est GFR (MDRD) Af Amer 125, Est GFR (MDRD) Non-Af 103, BUN/Creatinine Ratio 13.9, Glucose 114 H, Calcium 7.5 L, Triglycerides 194, Cholesterol 122, LDL Cholesterol 55, VLDL Cholesterol 39, HDL Cholesterol 28 L 06/06/18 05:11: POC Glucose 120 H 06/06/18 06:53: Specimen Type ART, Sample Site R Brachial, pH 7.46 H, Bicarbonate Actual 22.5, POC Total CO2 23, Base Excess -1, O2 Saturation 96, O2 % 35, ABG pCO2 31.4 L, ABG pO2 75, Vega Test NA, O2 Delivery Device Vent, Vent Mode CPAP PS, POC PEEP 5, POC Pressure Suppt 5, Blood Gas Notified Whom ICU MD, Blood Gas Notified Time 643 Current Medications Acetaminophen (Tylenol) 650 mg PO Q6H PRN PRN PRN Reason: Non-cardiac pain (mod-severe) Last Admin: 06/05/18 22:27 Dose: 650 mg Albuterol Sulfate (Ventolin Aerosols) 2.5 mg INHALATION Q2H PRN PRN PRN Reason: Wheezing Chlorhexidine Gluconate () 15 ml PO BID [facility] Last Admin: 06/05/18 20:37 Dose: 15 ml Chlorhexidine Gluconate () 1 each TOPICAL DAILY [facility] Last Admin: 06/06/18 01:31 Dose: 1 each Dextrose (D50w Syringe) 0 gm IV X1 PRN; Protocol PRN Reason: Hypoglycemia Enoxaparin Sodium (Lovenox) 40 mg SC DAILY@1000 [facility] Glucagon () 1 mg IM .X1 PRN PRN Reason: Hypoglycemia Hydralazine HCl (Apresoline Iv) 10 mg IV Q4H PRN PRN PRN Reason: SBP > 160 Ampicillin Sodium/Sulbactam (Sodium 3 gm/ Sodium Chloride) 112 mls @ 150 mls/hr IV Q8 [facility] Last Admin: 06/06/18 05:13 Dose: 150 mls/hr Propofol (Diprivan) 1,000 mg in 100 mls @ 4.686 mls/hr CONT INF .Q12H [facility] Last Admin: 06/06/18 01:30 Dose: 4.686 mls/hr Influenza Virus Vaccine Quadrival (Fluarix/Fluzone) 0.5 ml IM .ONCE ONE Stop: 06/06/18 10:01 Insulin Human Lispro (Humalog Festuspen (Bkc)) 0 unit SQ Q4 [facility]; Protocol Last Admin: 06/06/18 05:13 Dose: Not Given Levetiracetam (Keppra Tablet) 500 mg PO BID [facility] Magnesium Hydroxide (Milk Of Magnesia) 30 ml PO DAILY PRN PRN Reason: Constipation Sodium Chloride () 5 - 15 ml IV UD PRN PRN Reason: SALINE FLUSH Last Admin: 06/06/18 04:03 Dose: 10 ml Medical Necessity - Tobacco Use Smoking Status: Current every day smoker Tobacco Use: Cigarettes Assessment/Plan All Active Problems (Last Updated 06/05/18 @ 21:10 by Molly Partida) Hyperglycemia (Acute) Dehydration (Acute) Leukocytosis (Acute) UTI (urinary tract infection) (Acute) Pneumonia (Acute) Blind left eye (Resolved) 1. Sepsis secondary to aspiration versus community-acquired pneumonia and UTI/acute hypoxic and hypercapnic respiratory failure secondary to sepsis and pneumonia/AK I/toxic encephalopathy -She was given a dose of Unasyn done in the ER which will be continued as this covers both lung and urine source -Blood and urine cultures are pending -She was intubated yesterday because no improvement in her ABGs with BiPAP and she was very lethargic to be able to protect her airway, she was extubated this morning -Patient creatinine is 0.8 and on admission she is 1.32 we will continue with IV fluids she received 2 L bolus done in the ER as well as, is 150 cc/h maintenance -Creatinine is 0.65 -Lactate on admission was 3.5 on repeat she was down to 1.4 -It appears that she was given an 90 pill prescription of Ativan on May 26 and on the day of admission her pill count was down to 19 2. DM 2 with peripheral neuropathy -She is on insulin at home with 40 units of long-acting insulin twice daily -We will continue her long-acting insulin as well as sliding scale insulin -When she is out of her sepsis and her lethargic state can continue her Lyrica 3. Anxiety/depression/Schizophrenia and h/o grand mal seizures - Tegretol level is low - C/w keppra, risperidone, and seroquel once she becomes more alert -She denies currently being suicidal however she states that she has had recent thoughts of harming herself, will consult crisis for evaluation since she is medically stable at the moment DVT: Lovenox/SCDs Code Visit Inpatient E&M: 79340 Subs Hosp L2
[2018-06-06 09:30] LABS: Bedside Glucose 158 mg/dL (70-110)
--- NOTE | 2018-06-06 09:41 | CASEMGMT ---
KIARRA CM Assessment Presentation: uti, pneumonia; unresponsiveness, hypoglycemia, anxiety/depression/schizophrenia PCP: Dr. Maddie Del Real Preferred Pharmacy: [facility] Insurance: [employer] Prescription Benefit: yes LNOK: Philip Mckeon, Significant Other listed only. [phone] Living Arrangements: Lives in apartment. SO lives with her, makes meals, cleans Pt has services through [facility], MARIA A Carlson (pt does not remember last name and it is not through [facility]). [facility] provide aide services 2x/week for 1 1/2 hours. Call to [place] to notify of admission. Transportation: [facility] service DME/HHC: walker, wheelchair DC PLAN: undetermined. Crisis consult prior to dc. APRIL Hernandez updated on above. Efrain COPPOLA RN AC
[2018-06-06] MEDS: levETIRAcetam 500 MG Tablet PO (09:42)
[2018-06-06] MEDS: Insulin Lispro 100 UNIT/ML INSULN.PEN SC ×2 (09:45→13:18)
[2018-06-06] MEDS: Amox/Clavulanate 875 MG Tablet PO ×2 (13:20→17:01)
[2018-06-06] MEDS: RisperiDONE 0.5 MG Tablet 1.5 MG PO (13:21)
[2018-06-06 13:35] LABS: Bedside Glucose 246 mg/dL (70-110)
--- NOTE | 2018-06-06 17:09 | DCINST_ITS ---
- Discharge Diagnoses Current Active Problems: Current Active and Chronic Problems (Last Updated 06/05/18 @ 21:10 by Molly Partida) UTI (urinary tract infection) (Acute) Pneumonia (Acute) You will use the following diet at home:: No restrictions Your food should be the consistency of: Regular Your liquids should be the consistency of: Regular/Thin Discharge Activity: No Restrictions Call your doctor if you observe: Shortness of breath, Chest pain, Increased palpitations (irregular heartbeat) Allergies/Adverse Reactions: Allergies Sulfa (Sulfonamide Antibiotics) Allergy (Verified 06/05/18 09:29) Hives Medications to take at Discharge Lorazepam [Ativan] 2 mg PO TID PRN PRN 06/23/15 Pregabalin [Lyrica] 200 mg PO BID 10/27/15 traMADol [Ultram] 100 mg PO Q6H PRN PRN 10/27/15 Pregabalin [Lyrica] 100 mg PO LUNCH 07/26/16 Insulin Glargine,Hum.rec.anlog [Basaglar Kwikpen U-100] 40 unit SQ BID 11/12/16 Albuterol Inhaler [Ventolin Hfa] 2 puff INHALATION Q4H PRN PRN 06/10/17 Fluticasone Propionate [Flovent Diskus] 50 mcg NASAL BID 06/10/17 Meloxicam [Mobic] 15 mg PO DAILY 06/10/17 Oxybutynin Chloride [Ditropan Xl] 5 mg PO BID 06/10/17 Fexofenadine HCl 180 mg PO DAILY 06/05/18 Hydroxyzine HCl 25 mg PO QHS 06/05/18 Insulin Lispro [Humalog KwikPen] 10 unit SQ BIDCM 06/05/18 Levetiracetam 500 mg PO BID 06/05/18 Risperidone 3 mg PO BID 06/05/18 Amox/Clavulanate Tablet [Augmentin Tablet] 875 mg PO BIDCM 10 Days tablet 06/06/18 Baclofen 10 mg PO TID PRN PRN 06/06/18 Primary Care Physician: Maddie Valadez MD [Primary Care Provider] - Please follow up with your Primary Care Physician in: 3-5 days Test Results: Test results from this visit will be discussed in further detail at your follow- up appointment, if applicable. Please Follow Up With: Psychiatry When: 1 week
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
--- NOTE | 2018-06-06 17:31 | NURSING ---
report called to KIARRA Sharp [id number].
--- NOTE | 2018-06-07 11:26 | CASEMGMT ---
[facility] called this RN CM regarding another pt and inquired if this pt, who is currently active with them, was still admitted and this RN CM advised them that pt was transferred to [facility] yesterday, voices understanding. Adolfo RN CM
--- OUTSIDE RECORDS SUMMARY | 2018-08-07 20:27 | XMS RPT_ITS ---
:1970 Author Organization OHIP Support Name Relationship Address Phone UE Unavailable Unavailable Unavailable UE Unavailable Unavailable Unavailable UE Unavailable Unavailable Unavailable UE Unavailable Unavailable Unavailable UE Unavailable Unavailable Unavailable UE Unavailable Unavailable Unavailable UE Unavailable Unavailable Unavailable ENRIQUE, PRIYA Unavailable [address] [place] [address] DR + [address] [place] [address] UE Unavailable Unavailable Unavailable ENRIQUE, PRIYA Unavailable [address] [place] [address] DR + [address] [place] [address] UE Unavailable Unavailable Unavailable ENRIQUE, PRIYA Unavailable [address] [place] [address] DR + [address] [place] [address] UE Unavailable Unavailable Unavailable ENRIQUE, PRIYA Unavailable [address] [place] [address] DR + [address] [place] [address] UE Unavailable Unavailable Unavailable ENRIQUE, PRIYA Unavailable [address] [place] [address] DR + [address] [place] [address] UE Unavailable Unavailable Unavailable ENRIQUE, PRIYA Unavailable [address] [place] [address] DR + [address] [place] [address] UE Unavailable Unavailable Unavailable ENRIQUE, PRIYA Unavailable [address] [place] [address] DR + [address] [place] [address] UE Unavailable Unavailable Unavailable ENRIQUE, PRIYA Unavailable [address] [place] [address] DR + [address] [place] [address] UE Unavailable Unavailable Unavailable ENRIQUE, PRIYA Unavailable [address] [place] [address] DR + [address] [place] [address] UE Unavailable Unavailable Unavailable ENRIQUE, PRIYA Unavailable [address] [place] [address] DR + [address] [place] [address] UE Unavailable Unavailable Unavailable ENRIQUE, PRIYA Unavailable [address] + [address] [place] [address] UE Unavailable Unavailable Unavailable ENRIQUE, PRIYA Unavailable [address] + [address] [place] [address] UE Unavailable Unavailable Unavailable Care Team Providers Name Role Phone Malys, Alexandra Attending Unavailable Malys, Alexandra Referring Unavailable Malys, Alexandra Primary Care Unavailable Jolliff, Maddie Primary Care Unavailable Kotsonis, David F Admitting Unavailable Kotsonis, David F Attending Unavailable Jorge Rider Consulting Unavailable Kotsonis, David F Admitting Unavailable Kotsonis, David F Attending Unavailable Jolliff, Maddie Primary Care Unavailable Kotsonis, David F Consulting Unavailable Kotsonis, David F Admitting Unavailable Jorge Rider Attending Unavailable Jolliff, Maddie Primary Care Unavailable Jorge Rider Consulting Unavailable Kotsonis, David F Consulting Unavailable Kotsonis, David F Admitting Unavailable Kotsonis, David F Attending Unavailable Jolliff, Maddie Primary Care Unavailable Jorge Rider Consulting Unavailable Kotsonis, David F Consulting Unavailable Kotsonis, David F Admitting Unavailable Jorge Rider Attending Unavailable Jolliff, Maddie Primary Care Unavailable Jorge Rider Consulting Unavailable Kotsonis, David F Consulting Unavailable Malys, Alexandra Attending Unavailable Malys, Alexandra Referring Unavailable Malys, Alexandra Primary Care Unavailable Malys, Alexandra Attending Unavailable Malys, Alexandra Primary Care Unavailable Malys, Alexandra Attending Unavailable Malys, Alexandra Primary Care Unavailable Malys, Alexandra Referring Unavailable Malys, Alexandra Attending Unavailable Malys, Alexandra Primary Care Unavailable Brian Nolasco Attending Unavailable Malys, Alexandra Primary Care Unavailable Prebish, Alexandra [employer] Attending Unavailable Malys, Alexandra Primary Care Unavailable 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 Attending Unavailable Malys, Alexandra Primary Care Unavailable Bouchra, Oly S. Referring Unavailable Bouchra, Oly S. Attending Unavailable Bouchra, Oly S. Referring Unavailable Jolliff, Maddie Primary Care Unavailable Jolliff, Maddie Attending Unavailable Malys, Alexandra Primary Care Unavailable Jolliff, Maddie Referring Unavailable Luther Webber Attending Unavailable Jolliff, Maddie Primary Care Unavailable GRANDHI, JAYKUMAR Admitting Unavailable GRANDHI, JAYKUMAR Attending Unavailable ALLEGRA PETE Consulting Unavailable GRANDHI, JAYKUMAR Admitting Unavailable GRANDHI, JAYKUMAR Attending Unavailable ALLEGRA PETE Consulting Unavailable PROBLEMS PROBLEMS DATE TYPE CONDITION / CODE ATTENDING STATUS SOURCE 06/06/2018 Active Schizoaffective GRANDHI, Active [place] disorder, [facility] Other unspecified / [place] F25.9(ICD-10) Repository 06/06/2018 Admitting Unknown / GRANDHI, Active [place] [facility] diagnosis UNK(Unknown) [facility] Repository 02/21/2018 Unknown E11.8 - Type 2 Maddie Valadez Active [place] diabetes mellitus Community with unspecified Hospital complications / Repository E11.8(ICD-10) 02/21/2018 Unknown F41.9 - Anxiety JoMaddie bennett Active [place] disorder, Community unspecified / Hospital F41.9(ICD-10) Repository 10/06/2017 Unknown M46.52 - Other Prebish, Alexandra Active [place] infective S[employer] LOAN PROCESSOR[employer] Community spondylopathies, Hospital cervical region / Repository M46.52(ICD-10) 12/21/2017 Unknown M54.2 - Cervicalgia Malys, Alexandra Active [place] / M54.2(ICD-10) [facility] Repository 08/12/2017 Unknown N39.0 - Urinary Gaurav, Brian Active [place] tract infection, Community site not specified / Hospital N39.0(ICD-10) Repository 07/28/2017 Unknown R30.0 - Dysuria / Malys, Alexandra Active [place] R30.0(ICD-10) [facility] Repository 08/01/2017 Unknown M79.9 - Soft tissue Malys, Alexandra Active [place] disorder, Community unspecified / Hospital M79.9(ICD-10) Repository 06/17/2017 Unknown G40.409 - Other Malys, Alexandra Active [place] generalized epilepsy Community and epileptic Hospital syndromes, not Repository intractable, without status epilepticus / G40.409(ICD-10) PROCEDURES PROCEDURES No Procedure Records FoundRESULTS RESULTS GLUCOSE METER Collected: 06/11/2018 Status: F Source: [facility] 10:58 AM HEALTH SYSTEM REPOSITORY TYPE CODE TESTS RESULT OUT OF REFERENCE UNITS RANGE LAB GLUBL(LOINC 70-99 mg/dL ) High Glucose Meter 144 Result Comment: RN NOTIFIED Performed By: #### GLMET #### [facility] [address] [place] [address] NURSING PROG Observed: 06/11/2018 Status: COMPLETED Source: [place] 10:28 AM CLINIC OTHER CAMPUS REPOSITORY HNO ID: [id number] Author: Megan (Rn) KIARRA Rowley Service: Nursing Author Type: Registered Nurse Type: Nursing Progress Note Filed: 06/11/2018 11:45 AM Note Text: Nursing Progress Note Patient Name: Agustina Kaye Patient Location: [place] [address] [address]* Daily Note: Patient is calm and compliant with medications. Patient is well groomed and pleasant during assessment. Patient denies suicidal and homicidal ideation and agrees to be safe on unit. Patient denies hallucinations. Patient states depression is 2/10. Patient states anxiety is 4/10 with no specific cause. It's always there. I slept really well last night. Patient states she feels minipress has helped with her nightmares. Patient denies issues with appetite. Patient states that she feels cymbalta is helping decrease pain.Patient is bright and states that she feels she can be safe at home. Patient states that she lives with her fiance who is supportive, and that she has supportive friends in her building. Patient denies concerns and needs at this time. Patient continues to ambulate and socialize on unit. Will continue to monitor. This note was completed by: Megan Rowley RN CONSULT PROG Observed: 06/11/2018 Status: COMPLETED Source: [place] 9:57 AM CLINIC OTHER CAMPUS REPOSITORY HNO ID: [id number] Author: Keena Stevenson Service: (none) Author Type: Physician Type: Consult Progress Note Filed: 06/11/2018 10:01 AM Note Text: INPATIENT PROGRESS NOTE SERVICE DATE: 06/11/2018 SERVICE TIME: 9:57 AM Subjective CHIEF COMPLAINT: PTSD (post-traumatic stress disorder) PRIMARY SERVICE: Psych INTERVAL HPI: pt seen in [facility] in front of staff and other residents. She is pleasant without any complaints . She denies any cp or sob. I was called on a low bs again this am. She is on a long acting insulin 40 units twice daily at home Current hospital medications: [START ON 06/12/2018] insulin glargine 42 Units pen (long acting) (LANTUS SOLOSTAR, BASAGLAR KWIKPEN) 42 Units SUBCUTANEOUS DAILY (8 AM) insulin glargine 20 Units pen (long acting) (LANTUS SOLOSTAR, BASAGLAR KWIKPEN) 20 Units SUBCUTANEOUS DAILY AT 9 PM prazosin 2 mg cap(s) (MINIPRESS) 2 mg ORAL AT BEDTIME DULoxetine 30 mg cap(s) (CYMBALTA) 30 mg ORAL DAILY traMADol 50 mg tab(s) (ULTRAM) 50 mg ORAL BID PRN insulin lispro 5 Units pen (rapid acting) (HumaLOG KWIKPEN) 5 Units SUBCUTANEOUS w MEALS miconazole 2 % 1 application topical powder (LOTRIMIN AF, DESENEX) 1 application TOPICAL BID amoxicillin-clavulanic acid 875 mg tab(s) (AUGMENTIN) 875 mg ORAL q 12 H pregabalin (LYRICA) cap(s) 200 mg 200 mg ORAL BID pregabalin 100 mg cap(s) (LYRICA) 100 mg ORAL DAILY wLUNCH albuterol HFA 90 mcg/actuation 2 Puff (PROVENTIL HFA, VENTOLIN HFA) 2 Puff INHALATION q 4 H PRN meloxicam 15 mg tab(s) (MOBIC) 15 mg ORAL DAILY oxybutynin 5 mg tab(s) (DITROPAN) 5 mg ORAL BID hydrOXYzine HCl 25 mg tab(s) (ATARAX) 25 mg ORAL AT BEDTIME loratadine 10 mg tab(s) (CLARITIN) 10 mg ORAL DAILY levETIRAcetam 500 mg tab(s) (KEPPRA) 500 mg ORAL BID risperiDONE 3 mg tab(s) (RisperDAL) 3 mg ORAL BID dextrose 40 % 15 g 15 g ORAL PRN glucagon 1 mg injection (GLUCAGEN) 1 mg INTRAMUSCULAR PRN dextrose 50% in water 25 mL syringe 12.5 g INTRAVENOUS PRN insulin lispro pen (rapid acting) (HumaLOG KWIKPEN) SUBCUTANEOUS w MEALS Lip Protectant with Sunscreen SPF 15 1 application Stick (Blistex) 1 application TOPICAL PRN benzocaine-menthol 1 Lozenge (CEPACOL) 1 Lozenge MUCOUS MEMBRANE (TOPICAL MOUTH AND THROAT) q 2 H PRN nicotine 21 mg/24 hr 1 Patch (NICODERM) 1 Patch TRANSDERMAL DAILY nicotine -- REMOVE patch OTHER DAILY nicotine - verify patch OTHER q 8 H magnesium hydroxide 400 mg/5 mL 30 mL (MOM) 30 mL ORAL DAILY PRN aluminum-magnesium hydroxide-simethicone 200-200-20 mg/5 mL 30 mL (MAALOX,MYLANTA,MAG-AL PLUS) 30 mL ORAL q 4 H PRN acetaminophen 650 mg tab(s) (TYLENOL) 650 mg ORAL q 6 H PRN haloperidol lactate 5 mg injection (HALDOL) 5 mg INTRAMUSCULAR q 4 H PRN haloperidol 5 mg tab(s) (HALDOL) 5 mg ORAL q 4 H PRN diphenhydrAMINE 50 mg injection (BENADRYL) 50 mg INTRAMUSCULAR q 4 H PRN diphenhydrAMINE 50 mg (BENADRYL) 50 mg ORAL q 4 H PRN LORazepam 2 mg injection (ATIVAN) 2 mg INTRAMUSCULAR q 4 H PRN LORazepam 2 mg (ATIVAN) 2 mg ORAL q 4 H PRN baclofen 10 mg tab(s) (LIORESAL) 10 mg ORAL TID PRN mometasone 220 mcg (14 doses) 1 Puff inhaler (ASMANEX) 1 Puff INHALATION DAILY Objective PHYSICAL EXAM: BP 99/56 Pulse 60 Temp (Src) 98.6 (Tympanic) Resp 16 Ht 5' 6.496 (1.69m) Wt 168 lb 6.9 oz (76.4kg) SpO2 96% BMI 26.78 kg/(m2). GENERAL: Alert, no distress, cooperative SKIN: Skin color, texture, turgor normal. No rashes or lesions. HEAD/SINUSES: cloudy left eye EYES: cloudy left eye LUNGS: Lungs clear to auscultation, Good diaphragmatic excursion CARDIAC: Normal S1 and S2; no rubs, murmurs, or gallops ABDOMEN: Abdomen soft, non-tender, BS normal, No masses or organomegaly EXTREMITIES: Extremities normal, no deformities, edema, clubbing or skin discoloration. Good capillary refill., No ulcers NEURO: Gait normal. Reflexes normal and symmetric. Sensation grossly intact, Cranial nerves II-XII intact DATA: Diagnostic tests reviewed for today's visit: Most recent labs Assessment/Plan Principal Problem: PTSD (post-traumatic stress disorder) - with suicide attempt POA: Yes Assessment AND Plan: per psych Active Problems: Type 2 diabetes mellitus with skin complication, with long- term current use of insulin (HCC) POA: Yes Assessment AND Plan: ups and downs with blood sugar . I changed her lantus to 40 units in am and 20 units at 9 pm. Will follow Schizoaffective disorder, bipolar type (HCC) POA: Yes Assessment AND Plan: per psych stable Hypercholesteremia POA: Yes Assessment AND Plan: per outpt therapy Urinary frequency POA: Yes Assessment AND Plan: stable Yeast infection POA: Yes Assessment AND Plan: topical antifungal Aspiration pneumonia (HCC) POA: Yes Assessment AND Plan: doing well . Lungs clear finish antibiotics Resolved Problems: * No resolved hospital problems. * Discussed with nursing SIGNATURE: Keena Stevenson MD PATIENT NAME: Agustina Kaye DATE: 06/11/2018 TIME: 9:57 AM PAGER: PROGRESS Observed: 06/11/2018 Status: COMPLETED Source: [place] 9:08 AM CLINIC OTHER CAMPUS REPOSITORY HNO ID: [id number] Author: Grisel Crump Service: Psychiatry Author Type: Physician Type: Progress Notes Filed: 06/11/2018 10:53 AM Note Text: PROGRESS NOTE BEHAVIORAL HEALTH SERVICE DATE: 06/11/2018 SERVICE TIME: 9:08 AM The Interdisciplinary team met and reviewed treatment goals and discharge planning. Subjective PRNs overnight: None Med compliant Slept 6.5 hours last night. On unit/chart review:c/o depression and anxiety 08/23. Participated in groups. On interview: her severe anxiety is improving. her associated low mood is improving. she denies any stressors today. She has noted a marked improvement in her pain overnight. She would like to DC the Tramadol today. She would also like to DC the oxybutynin because it hasn't been helping her. she denies any side effects. She slept quite well last night. She is walking today without a walker. Denies any resurgence of PTSD symptoms. REVIEW OF SYSTEMS PSYCH: SI: No HI: No Anxiety: Yes Depression: No Hallucinations: No NEURO: Dystonia: No Involuntary Movements: No anticholinergic symptoms: No PFSH: Patient has communicated with home support system in the last 24 hrs. Objective PHYSICAL EXAM: BP 99/56 Pulse 60 Temp 37 ?C (98.6 ?F) Resp 16 Ht 168.9 cm (5' 6.5) Wt 76.4 kg (168 lb 6.9 oz) SpO2 96% BMI 26.78 kg/m? Mental Status exam: Alertness Alert AND Ox3 (PPT) -- consistent with baseline. Appearance Stated age, overweight build, wearing appropriate attire/grooming Behavior Cooperative, Appropriate Behavior, Rapport was easy to establish. Eye Contact Good Speech WNL Mood OK Affect Quality: Range: Intensity: congruent full reactive Thought Form Coherent, logical Thought Content Focused on: history, symptoms, and management Perception No hallucinations Suicidal Ideation SI: no Plan: no Intent: no. Homicidal Ideation HI: no Plan: no Intent: no. Abstraction Good Intelligence Average Insight Fair Judgment Fair Psychomotor Activity Normal Memory Recent and remote memory intact Language Intact Fund of knowledge appropriate Gait: Normal, walking comfortably Station: Sitting upright with appropriate posture. NEW PROBLEMS ON UNIT SINCE LAST ENCOUNTER: None Current hospital medications: prazosin 2 mg cap(s) (MINIPRESS) 2 mg ORAL AT BEDTIME DULoxetine 30 mg cap(s) (CYMBALTA) 30 mg ORAL DAILY traMADol 50 mg tab(s) (ULTRAM) 50 mg ORAL BID PRN insulin glargine 42 Units pen (long acting) (LANTUS SOLOSTAR, BASAGLAR KWIKPEN) 42 Units SUBCUTANEOUS BID insulin lispro 5 Units pen (rapid acting) (HumaLOG KWIKPEN) 5 Units SUBCUTANEOUS w MEALS miconazole 2 % 1 application topical powder (LOTRIMIN AF, DESENEX) 1 application TOPICAL BID amoxicillin-clavulanic acid 875 mg tab(s) (AUGMENTIN) 875 mg ORAL q 12 H pregabalin (LYRICA) cap(s) 200 mg 200 mg ORAL BID pregabalin 100 mg cap(s) (LYRICA) 100 mg ORAL DAILY wLUNCH albuterol HFA 90 mcg/actuation 2 Puff (PROVENTIL HFA, VENTOLIN HFA) 2 Puff INHALATION q 4 H PRN meloxicam 15 mg tab(s) (MOBIC) 15 mg ORAL DAILY oxybutynin 5 mg tab(s) (DITROPAN) 5 mg ORAL BID hydrOXYzine HCl 25 mg tab(s) (ATARAX) 25 mg ORAL AT BEDTIME loratadine 10 mg tab(s) (CLARITIN) 10 mg ORAL DAILY levETIRAcetam 500 mg tab(s) (KEPPRA) 500 mg ORAL BID risperiDONE 3 mg tab(s) (RisperDAL) 3 mg ORAL BID dextrose 40 % 15 g 15 g ORAL PRN glucagon 1 mg injection (GLUCAGEN) 1 mg INTRAMUSCULAR PRN dextrose 50% in water 25 mL syringe 12.5 g INTRAVENOUS PRN insulin lispro pen (rapid acting) (HumaLOG KWIKPEN) SUBCUTANEOUS w MEALS Lip Protectant with Sunscreen SPF 15 1 application Stick (Blistex) 1 application TOPICAL PRN benzocaine-menthol 1 Lozenge (CEPACOL) 1 Lozenge MUCOUS MEMBRANE (TOPICAL MOUTH AND THROAT) q 2 H PRN nicotine 21 mg/24 hr 1 Patch (NICODERM) 1 Patch TRANSDERMAL DAILY nicotine -- REMOVE patch OTHER DAILY nicotine - verify patch OTHER q 8 H magnesium hydroxide 400 mg/5 mL 30 mL (MOM) 30 mL ORAL DAILY PRN aluminum-magnesium hydroxide-simethicone 200-200-20 mg/5 mL 30 mL (MAALOX,MYLANTA,MAG-AL PLUS) 30 mL ORAL q 4 H PRN acetaminophen 650 mg tab(s) (TYLENOL) 650 mg ORAL q 6 H PRN haloperidol lactate 5 mg injection (HALDOL) 5 mg INTRAMUSCULAR q 4 H PRN haloperidol 5 mg tab(s) (HALDOL) 5 mg ORAL q 4 H PRN diphenhydrAMINE 50 mg injection (BENADRYL) 50 mg INTRAMUSCULAR q 4 H PRN diphenhydrAMINE 50 mg (BENADRYL) 50 mg ORAL q 4 H PRN LORazepam 2 mg injection (ATIVAN) 2 mg INTRAMUSCULAR q 4 H PRN LORazepam 2 mg (ATIVAN) 2 mg ORAL q 4 H PRN baclofen 10 mg tab(s) (LIORESAL) 10 mg ORAL TID PRN mometasone 220 mcg (14 doses) 1 Puff inhaler (ASMANEX) 1 Puff INHALATION DAILY DATA: Diagnostic tests reviewed for today's visit: Most recent labs and imaging results. Assessment/Plan RISK ASSESSMENT: Suicide: moderate Homicide: low Deliberate Self-Harm: low Aggression: low Imminent Physical Self Impairment: low INFORMED CONSENT: Yes, completed with the Patient. Discussed the risks, benefits and alternatives to the medication(s) recommended. Consent was given. DIAGNOSIS: Principal Problem: PTSD (post-traumatic stress disorder) - with suicide attempt POA: Yes Assessment AND Plan: anxiety is much better today. Will DC Tramadol and oxybutinin. Will increase Cymbalta Active Problems: Type 2 diabetes mellitus with skin complication, with long- term current use of insulin (HCC) POA: Yes Assessment AND Plan: med Schizoaffective disorder, bipolar type (HCC) POA: Yes Assessment AND Plan: continue current meds. Hypercholesteremia POA: Yes Assessment AND Plan: med Urinary frequency POA: Yes Assessment AND Plan: med Yeast infection POA: Yes Assessment AND Plan: med Aspiration pneumonia (HCC) POA: Yes Assessment AND Plan: med Resolved Problems: * No resolved hospital problems. * Psychological: groups, milieu Social: DC planning DISCHARGE PLANNING: Tuesday or JUSTIFICATION FOR CONTINUED ADMISSION: Further medication changes are required., More time is required for medications to work and Further observation is required to ensure improvement is sustained. SIGNATURE: Grisel Crump MD PATIENT NAME: Agustina Kaye DATE: June 11, 2018 TIME: 9:08 AM PAGER/CONTACT#: NURSING PROG Observed: 06/10/2018 Status: COMPLETED Source: [facility] 8:40 PM CLINIC OTHER CAMPUS REPOSITORY O ID: [id number] Author: Pamela (Rn) KIARRA Pearce Service: Nursing Author Type: Registered Nurse Type: Nursing Progress Note Filed: 06/11/2018 12:17 AM Note Text: Nursing Progress Note Patient Name: Agustina Kaye Patient Location: [place] [id number] Daily Note: Patient is calm, cooperative and complaint with medication. Patient denies SI, HI, AH, VH, and thoughts of self harm. Patient contracts for safety. Patient denies depression and rates anxiety 08/23 stating she doesn't know why she is anxious and her anxiety is always there. Patient reports good sleep and good appetite. Patient states she feels ok. Patient reports attending groups today. Patient encourgaed to seek staff with any concerns. Will continue to monitor. This note was completed by: Pamela Pearce RN PROGRESS Observed: 06/10/2018 Status: COMPLETED Source: [place] 6:30 PM CLINIC OTHER CAMPUS REPOSITORY HNO ID: [id number] Author: Keena Stevenson Service: (none) Author Type: Physician Type: Progress Notes Filed: 06/10/2018 6:46 PM Note Text: INPATIENT PROGRESS NOTE SERVICE DATE: 06/10/2018 SERVICE TIME: 6:31 PM Subjective CHIEF COMPLAINT: PTSD (post-traumatic stress disorder) PRIMARY SERVICE: Psych INTERVAL HPI: pulled pt out of group therpajesus to see. I was called on a low bs for this pt this am. She states she occasionally has low bs at home. Feels good now . Rash is improved . No sob. Current hospital medications: prazosin 2 mg cap(s) (MINIPRESS) 2 mg ORAL AT BEDTIME DULoxetine 30 mg cap(s) (CYMBALTA) 30 mg ORAL DAILY traMADol 50 mg tab(s) (ULTRAM) 50 mg ORAL BID PRN insulin glargine 42 Units pen (long acting) (LANTUS SOLOSTAR, BASAGLAR KWIKPEN) 42 Units SUBCUTANEOUS BID insulin lispro 5 Units pen (rapid acting) (HumaLOG KWIKPEN) 5 Units SUBCUTANEOUS w MEALS miconazole 2 % 1 application topical powder (LOTRIMIN AF, DESENEX) 1 application TOPICAL BID amoxicillin-clavulanic acid 875 mg tab(s) (AUGMENTIN) 875 mg ORAL q 12 H pregabalin (LYRICA) cap(s) 200 mg 200 mg ORAL BID pregabalin 100 mg cap(s) (LYRICA) 100 mg ORAL DAILY wLUNCH albuterol HFA 90 mcg/actuation 2 Puff (PROVENTIL HFA, VENTOLIN HFA) 2 Puff INHALATION q 4 H PRN meloxicam 15 mg tab(s) (MOBIC) 15 mg ORAL DAILY oxybutynin 5 mg tab(s) (DITROPAN) 5 mg ORAL BID hydrOXYzine HCl 25 mg tab(s) (ATARAX) 25 mg ORAL AT BEDTIME loratadine 10 mg tab(s) (CLARITIN) 10 mg ORAL DAILY levETIRAcetam 500 mg tab(s) (KEPPRA) 500 mg ORAL BID risperiDONE 3 mg tab(s) (RisperDAL) 3 mg ORAL BID dextrose 40 % 15 g 15 g ORAL PRN glucagon 1 mg injection (GLUCAGEN) 1 mg INTRAMUSCULAR PRN dextrose 50% in water 25 mL syringe 12.5 g INTRAVENOUS PRN insulin lispro pen (rapid acting) (HumaLOG KWIKPEN) SUBCUTANEOUS w MEALS Lip Protectant with Sunscreen SPF 15 1 application Stick (Blistex) 1 application TOPICAL PRN benzocaine-menthol 1 Lozenge (CEPACOL) 1 Lozenge MUCOUS MEMBRANE (TOPICAL MOUTH AND THROAT) q 2 H PRN nicotine 21 mg/24 hr 1 Patch (NICODERM) 1 Patch TRANSDERMAL DAILY nicotine -- REMOVE patch OTHER DAILY nicotine - verify patch OTHER q 8 H magnesium hydroxide 400 mg/5 mL 30 mL (MOM) 30 mL ORAL DAILY PRN aluminum-magnesium hydroxide-simethicone 200-200-20 mg/5 mL 30 mL (MAALOX,MYLANTA,MAG-AL PLUS) 30 mL ORAL q 4 H PRN acetaminophen 650 mg tab(s) (TYLENOL) 650 mg ORAL q 6 H PRN haloperidol lactate 5 mg injection (HALDOL) 5 mg INTRAMUSCULAR q 4 H PRN haloperidol 5 mg tab(s) (HALDOL) 5 mg ORAL q 4 H PRN diphenhydrAMINE 50 mg injection (BENADRYL) 50 mg INTRAMUSCULAR q 4 H PRN diphenhydrAMINE 50 mg (BENADRYL) 50 mg ORAL q 4 H PRN LORazepam 2 mg injection (ATIVAN) 2 mg INTRAMUSCULAR q 4 H PRN LORazepam 2 mg (ATIVAN) 2 mg ORAL q 4 H PRN baclofen 10 mg tab(s) (LIORESAL) 10 mg ORAL TID PRN mometasone 220 mcg (14 doses) 1 Puff inhaler (ASMANEX) 1 Puff INHALATION DAILY Objective PHYSICAL EXAM: BP 105/70 Pulse 78 Temp (Src) 97.7 (Oral) Resp 16 Ht 5' 6.496 (1.69m) Wt 168 lb 6.9 oz (76.4kg) SpO2 98% BMI 26.78 kg/(m2). GENERAL: Alert, no distress, cooperative SKIN: Skin color, texture, turgor normal. No rashes or lesions., redness in groin and under breasts is improved HEAD/SINUSES: No significant findings LUNGS: Lungs clear to auscultation, Good diaphragmatic excursion CARDIAC: Normal S1 and S2; no rubs, murmurs, or gallops ABDOMEN: Abdomen soft, non-tender, BS normal, No masses or organomegaly EXTREMITIES: Extremities normal, no deformities, edema, clubbing or skin discoloration. Good capillary refill., No ulcers NEURO: Gait normal. Reflexes normal and symmetric. Sensation grossly intact, Cranial nerves II-XII intact DATA: Diagnostic tests reviewed for today's visit: Most recent labs Assessment/Plan Principal Problem: PTSD (post-traumatic stress disorder) - with suicide attempt POA: Yes Assessment AND Plan: per psych Active Problems: Type 2 diabetes mellitus with skin complication, with long- term current use of insulin (HCC) POA: Yes Assessment AND Plan: low bs this am. Since then high bs . Will follow. Resume all regular meds Schizoaffective disorder, bipolar type (HCC) POA: Yes Assessment AND Plan: per psych Hypercholesteremia POA: Yes Assessment AND Plan: per out pt treatmment Urinary frequency POA: Yes Assessment AND Plan: ditropan Yeast infection POA: Yes Assessment AND Plan: topical antifungals Aspiration pneumonia (HCC) POA: Yes Assessment AND Plan: finish augmentin lungs clear Resolved Problems: * No resolved hospital problems. * Discussed with nursing SIGNATURE: Keena Stevenson MD PATIENT NAME: Agustina Kaye DATE: 06/10/2018 TIME: 6:31 PM PAGER: ALLIED HEALTH Observed: 06/10/2018 Status: COMPLETED Source: [place] 2:15 PM [facility] OTHER [place] REPOSITORY HNO ID: [id number] Author: Srinivasan Paz (Ctrs) Service: Behavioral Health Author Type: Recreational Therapist Type: Allied Health Filed: 06/10/2018 4:54 PM Note Text: PROGRESS NOTE BEHAVIORAL HEALTH Topic of Note: Group Participation SERVICE DATE: 06/10/2018 SERVICE TIME: [id number] Assessment: Pt. participated upon invite, her affect was pleasant, she displayed moderate energy/effort, she engaged in the group discussion and completed the group exercises. Intervention: Discussion/Activity on effective communication skills. Evaluation: Encouraged use of effective communication skills to improve interpersonal effectiveness. Pt. would benefit from continued support and therapeutic services as well as the ability to continue developing positive coping skills. SIGNATURE: ALESSANDRA Paz PATIENT NAME: Agustina Kaye DATE: June 10, 2018 TIME: 4:54 PM PAGER/CONTACT #: ALLIED HEALTH Observed: 06/10/2018 Status: COMPLETED Source: [place] 9:30 AM [facility] REPOSITORY HNO ID: [id number] Author: Srinivasan Paz (Ctrs) Service: Behavioral Health Author Type: Recreational Therapist Type: Allied Health Filed: 06/10/2018 2:00 PM Note Text: PROGRESS NOTE BEHAVIORAL HEALTH Topic of Note: Group Participation SERVICE DATE: 06/10/2018 SERVICE TIME: [id number] Assessment: Pt. participated upon invite, her affect was pleasant, she displayed moderate energy/effort, she engaged in the group discussion and completed the group exercises. She left the group briefly to meet with medical staff and she returned. Intervention: Discussion/Activity on coping utilizing leisure skills (exercise/ROM, deep breathing techniques and craft activity.) Evaluation: Pt. was able to identify positive leisure pursuits to use as coping skills. Encouraged use of positive coping and leisure life skills. Pt would benefit from continued support and therapeutic services as well as the ability to continue developing positive coping skills. SIGNATURE: ALESSANDRA Paz PATIENT NAME: Agustina Kaye DATE: June 10, 2018 TIME: 1:59 PM PAGER/CONTACT #: PROGRESS Observed: 06/10/2018 Status: COMPLETED Source: [place] 9:24 AM [facility] REPOSITORY HNO ID: [id number] Author: Grisel Crump Service: Psychiatry Author Type: Physician Type: Progress Notes Filed: 06/10/2018 12:48 PM Note Text: PROGRESS NOTE BEHAVIORAL HEALTH SERVICE DATE: 06/10/2018 SERVICE TIME: 9:25 AM The Interdisciplinary team met and reviewed treatment goals and discharge planning. Subjective PRNs overnight: Tramadol 100 mg Med compliant Slept 6.5 hours last night. On unit/chart review:calm. Denies SI. Participated in groups. Happy her blood sugars are improving. On interview: her severe anxiety is improving. her associated low mood is improving. She has not had any more flashbacks. she is stressed by having access to less tramadol. States that her neurologist also wants her to get off of it. She is interested in changing her Zoloft to Cymbalta to help with her pain. She is sleeping deeper than usual. she denies any side effects. REVIEW OF SYSTEMS PSYCH: SI: No HI: No Anxiety: Yes Depression: Yes Hallucinations: No NEURO: Dystonia: No Involuntary Movements: No anticholinergic symptoms: No PFSH: Patient has communicated with home support system in the last 24 hrs. Objective PHYSICAL EXAM: BP 105/70 Pulse 78 Temp 36.5 ?C (97.7 ?F) Resp 16 Ht 168.9 cm (5' 6.5) Wt 76.4 kg (168 lb 6.9 oz) SpO2 98% BMI 26.78 kg/m? Mental Status exam: Alertness Alert AND Ox3 (PPT) -- consistent with baseline. Appearance Stated age, overweight build, wearing appropriate attire/grooming Behavior Cooperative, Appropriate Behavior, Rapport was easy to establish. Eye Contact Good Speech WNL Mood Depressed, nervous Affect Quality: Range: Intensity: congruent full reactive Thought Form Coherent, logical Thought Content Focused on: history, symptoms, and management Perception No hallucinations Suicidal Ideation SI: no Plan: no Intent: no. Homicidal Ideation HI: no Plan: no Intent: no. Abstraction Fair Intelligence Average Insight Limited Judgment Limited Psychomotor Activity Normal Memory Recent and remote memory intact Language Intact Fund of knowledge diminished Gait: antalgic gait, without walker Station: Sitting upright with appropriate posture. NEW PROBLEMS ON UNIT SINCE LAST ENCOUNTER: None Current hospital medications: traMADol 50 mg tab(s) (ULTRAM) 50 mg ORAL BID PRN insulin glargine 42 Units pen (long acting) (LANTUS SOLOSTAR, BASAGLAR KWIKPEN) 42 Units SUBCUTANEOUS BID sertraline 50 mg tab(s) (ZOLOFT) 50 mg ORAL DAILY prazosin 1 mg cap(s) (MINIPRESS) 1 mg ORAL AT BEDTIME insulin lispro 5 Units pen (rapid acting) (HumaLOG KWIKPEN) 5 Units SUBCUTANEOUS w MEALS miconazole 2 % 1 application topical powder (LOTRIMIN AF, DESENEX) 1 application TOPICAL BID amoxicillin-clavulanic acid 875 mg tab(s) (AUGMENTIN) 875 mg ORAL q 12 H pregabalin (LYRICA) cap(s) 200 mg 200 mg ORAL BID pregabalin 100 mg cap(s) (LYRICA) 100 mg ORAL DAILY wLUNCH albuterol HFA 90 mcg/actuation 2 Puff (PROVENTIL HFA, VENTOLIN HFA) 2 Puff INHALATION q 4 H PRN meloxicam 15 mg tab(s) (MOBIC) 15 mg ORAL DAILY oxybutynin 5 mg tab(s) (DITROPAN) 5 mg ORAL BID hydrOXYzine HCl 25 mg tab(s) (ATARAX) 25 mg ORAL AT BEDTIME loratadine 10 mg tab(s) (CLARITIN) 10 mg ORAL DAILY levETIRAcetam 500 mg tab(s) (KEPPRA) 500 mg ORAL BID risperiDONE 3 mg tab(s) (RisperDAL) 3 mg ORAL BID dextrose 40 % 15 g 15 g ORAL PRN glucagon 1 mg injection (GLUCAGEN) 1 mg INTRAMUSCULAR PRN dextrose 50% in water 25 mL syringe 12.5 g INTRAVENOUS PRN insulin lispro pen (rapid acting) (HumaLOG KWIKPEN) SUBCUTANEOUS w MEALS Lip Protectant with Sunscreen SPF 15 1 application Stick (Blistex) 1 application TOPICAL PRN benzocaine-menthol 1 Lozenge (CEPACOL) 1 Lozenge MUCOUS MEMBRANE (TOPICAL MOUTH AND THROAT) q 2 H PRN nicotine 21 mg/24 hr 1 Patch (NICODERM) 1 Patch TRANSDERMAL DAILY nicotine -- REMOVE patch OTHER DAILY nicotine - verify patch OTHER q 8 H magnesium hydroxide 400 mg/5 mL 30 mL (MOM) 30 mL ORAL DAILY PRN aluminum-magnesium hydroxide-simethicone 200-200-20 mg/5 mL 30 mL (MAALOX,MYLANTA,MAG-AL PLUS) 30 mL ORAL q 4 H PRN acetaminophen 650 mg tab(s) (TYLENOL) 650 mg ORAL q 6 H PRN haloperidol lactate 5 mg injection (HALDOL) 5 mg INTRAMUSCULAR q 4 H PRN haloperidol 5 mg tab(s) (HALDOL) 5 mg ORAL q 4 H PRN diphenhydrAMINE 50 mg injection (BENADRYL) 50 mg INTRAMUSCULAR q 4 H PRN diphenhydrAMINE 50 mg (BENADRYL) 50 mg ORAL q 4 H PRN LORazepam 2 mg injection (ATIVAN) 2 mg INTRAMUSCULAR q 4 H PRN LORazepam 2 mg (ATIVAN) 2 mg ORAL q 4 H PRN baclofen 10 mg tab(s) (LIORESAL) 10 mg ORAL TID PRN mometasone 220 mcg (14 doses) 1 Puff inhaler (ASMANEX) 1 Puff INHALATION DAILY DATA: Diagnostic tests reviewed for today's visit: Most recent labs and imaging results. Assessment/Plan RISK ASSESSMENT: Suicide: moderate Homicide: low Deliberate Self-Harm: low Aggression: low Imminent Physical Self Impairment: low INFORMED CONSENT: Yes, completed with the Patient. Discussed the risks, benefits and alternatives to the medication(s) recommended. Consent was given. DIAGNOSIS: Principal Problem: PTSD (post-traumatic stress disorder) - with suicide attempt POA: Yes Assessment AND Plan: doing a little worse today, likely due to having less Tramadol. Will change the Zoloft to Cymbalta and increase her prazosin today. Active Problems: Type 2 diabetes mellitus with skin complication, with long- term current use of insulin (HCC) POA: Yes Assessment AND Plan: med Schizoaffective disorder, bipolar type (HCC) POA: Yes Assessment AND Plan: stable Hypercholesteremia POA: Yes Assessment AND Plan: med Urinary frequency POA: Yes Assessment AND Plan: med Yeast infection POA: Yes Assessment AND Plan: med Aspiration pneumonia (HCC) POA: Yes Assessment AND Plan: med Resolved Problems: * No resolved hospital problems. * Psychological: groups, milieu Social: DC planning DISCHARGE PLANNING: undetermined JUSTIFICATION FOR CONTINUED ADMISSION: Further medication changes are required., Patient remains a threat to harm self or others if discharged. and More time is required for medications to work SIGNATURE: Grisel Curmp MD PATIENT NAME: Agustina Kaye DATE: June 10, 2018 TIME: 9:25 AM PAGER/CONTACT#: NURSING PROG Observed: 06/10/2018 Status: COMPLETED Source: [place] 8:48 AM [facility] REPOSITORY HNO ID: [id number] Author: Megan BartholomewRn) KIARRA Rowley Service: Nursing Author Type: Registered Nurse Type: Nursing Progress Note Filed: 06/10/2018 4:04 PM Note Text: Nursing Progress Note Patient Name: Agustina Kaye Patient Location: [place] [address]* Daily Note: Patient is well groomed, calm and compliant with medication. Patient denies suicidal and homicidal ideation and agrees to be safe on unit. Patient denies issues with appetite and sleep. Patient denies hallucinations and depression. Patient states anxiety is 8/10 with no specific cause. Patient states that she had overdosed after having flashbacks of waking up to her fiance who had in bed beside her. Patient states she was upset initially that the overdose did not kill her but is accepting that she needs to be alive to take care of her significant other. Patient states she plans to attend group therapy today and denies further needs at this time. Patient encouraged to notify staff with needs and will continue to be monitored. This note was completed by: Megan Rowley RN NURSING PROG Observed: 06/09/2018 Status: COMPLETED Source: [place] 9:40 PM [facility] REPOSITORY HNO ID: [id number] Author: Iván BartholomewRn) KIARRA Navarro Service: Nursing Author Type: Registered Nurse Type: Nursing Progress Note Filed: 06/09/2018 11:30 PM Note Text: Nursing Progress Note Patient Name: Agustina Kaye Patient Location: [place] [address]* Daily Note: Patient approached nurse's station asking about night time medication, this nurse complied. Patient calm hygienic cooperative and dressed in her own clothing. Patient states that she has been eating and sleeping fine. Patient denies suicidal and homicidal ideation, auditory and visual hallucinations, anxiety, and depression. Encouraged patient to attend groups and to seek staff with any concerns. Will continue to monitor patient. This note was completed by: Iván Navarro RN CONSULT PROG Observed: 06/09/2018 Status: COMPLETED Source: [place] 4:32 PM [facility] OTHER [facility]AMP[facility] REPOSITORY O ID: [id number] Author: Allegra Pete Service: (none) Author Type: Physician Type: Consult Progress Note Filed: 06/09/2018 4:37 PM Note Text: INPATIENT PROGRESS NOTE SERVICE DATE: 06/09/2018 SERVICE TIME: 4:32 PM Subjective CHIEF COMPLAINT: PTSD (post-traumatic stress disorder) PRIMARY SERVICE: Psych INTERVAL HPI: pt seen eating breakfast in day [place]. Happy with blood sugars lowering. No new medical complaints Current hospital medications: traMADol 50 mg tab(s) (ULTRAM) 50 mg ORAL BID PRN sertraline 50 mg tab(s) (ZOLOFT) 50 mg ORAL DAILY prazosin 1 mg cap(s) (MINIPRESS) 1 mg ORAL AT BEDTIME insulin lispro 5 Units pen (rapid acting) (HumaLOG KWIKPEN) 5 Units SUBCUTANEOUS w MEALS insulin glargine 47 Units pen (long acting) (LANTUS SOLOSTAR, BASAGLAR KWIKPEN) 47 Units SUBCUTANEOUS BID miconazole 2 % 1 application topical powder (LOTRIMIN AF, DESENEX) 1 application TOPICAL BID amoxicillin-clavulanic acid 875 mg tab(s) (AUGMENTIN) 875 mg ORAL q 12 H pregabalin (LYRICA) cap(s) 200 mg 200 mg ORAL BID pregabalin 100 mg cap(s) (LYRICA) 100 mg ORAL DAILY wLUNCH albuterol HFA 90 mcg/actuation 2 Puff (PROVENTIL HFA, VENTOLIN HFA) 2 Puff INHALATION q 4 H PRN meloxicam 15 mg tab(s) (MOBIC) 15 mg ORAL DAILY oxybutynin 5 mg tab(s) (DITROPAN) 5 mg ORAL BID hydrOXYzine HCl 25 mg tab(s) (ATARAX) 25 mg ORAL AT BEDTIME loratadine 10 mg tab(s) (CLARITIN) 10 mg ORAL DAILY levETIRAcetam 500 mg tab(s) (KEPPRA) 500 mg ORAL BID risperiDONE 3 mg tab(s) (RisperDAL) 3 mg ORAL BID dextrose 40 % 15 g 15 g ORAL PRN glucagon 1 mg injection (GLUCAGEN) 1 mg INTRAMUSCULAR PRN dextrose 50% in water 25 mL syringe 12.5 g INTRAVENOUS PRN insulin lispro pen (rapid acting) (HumaLOG KWIKPEN) SUBCUTANEOUS w MEALS Lip Protectant with Sunscreen SPF 15 1 application Stick (Blistex) 1 application TOPICAL PRN benzocaine-menthol 1 Lozenge (CEPACOL) 1 Lozenge MUCOUS MEMBRANE (TOPICAL MOUTH AND THROAT) q 2 H PRN nicotine 21 mg/24 hr 1 Patch (NICODERM) 1 Patch TRANSDERMAL DAILY nicotine -- REMOVE patch OTHER DAILY nicotine - verify patch OTHER q 8 H magnesium hydroxide 400 mg/5 mL 30 mL (MOM) 30 mL ORAL DAILY PRN aluminum-magnesium hydroxide-simethicone 200-200-20 mg/5 mL 30 mL (MAALOX,MYLANTA,MAG-AL PLUS) 30 mL ORAL q 4 H PRN acetaminophen 650 mg tab(s) (TYLENOL) 650 mg ORAL q 6 H PRN haloperidol lactate 5 mg injection (HALDOL) 5 mg INTRAMUSCULAR q 4 H PRN haloperidol 5 mg tab(s) (HALDOL) 5 mg ORAL q 4 H PRN diphenhydrAMINE 50 mg injection (BENADRYL) 50 mg INTRAMUSCULAR q 4 H PRN diphenhydrAMINE 50 mg (BENADRYL) 50 mg ORAL q 4 H PRN LORazepam 2 mg injection (ATIVAN) 2 mg INTRAMUSCULAR q 4 H PRN LORazepam 2 mg (ATIVAN) 2 mg ORAL q 4 H PRN baclofen 10 mg tab(s) (LIORESAL) 10 mg ORAL TID PRN mometasone 220 mcg (14 doses) 1 Puff inhaler (ASMANEX) 1 Puff INHALATION DAILY Objective PHYSICAL EXAM: BP 100/56 Pulse 80 Temp (Src) 97.7 (Oral) Resp 16 Ht 5' 6.496 (1.69m) Wt 168 lb 6.9 oz (76.4kg) SpO2 95% BMI 26.78 kg/(m2). GENERAL: Alert, no distress, cooperative SKIN: pt states rash under breast improving LUNGS: Lungs clear to auscultation, Good diaphragmatic excursion CARDIAC: Rhythm: regular rate and rhythm ABDOMEN: Soft, nontender and po good EXT: ambulates easily, no edema DATA: Diagnostic tests reviewed for today's visit: blood sugars reviewed Assessment/Plan Principal Problem: PTSD (post-traumatic stress disorder) - with suicide attempt POA: Yes Assessment AND Plan: pepr sych Active Problems: Type 2 diabetes mellitus with skin complication, with long- term current use of insulin (HCC) POA: Yes Assessment AND Plan: adjust insulin Schizoaffective disorder, bipolar type (HCC) POA: Yes Assessment AND Plan: per psych Hypercholesteremia POA: Yes Assessment AND Plan: follow diet Urinary frequency POA: Yes Assessment AND Plan: improved with better BS control Yeast infection POA: Yes Assessment AND Plan: topical antifungals Aspiration pneumonia (HCC) POA: Yes Assessment AND Plan: on Augmentin Resolved Problems: * No resolved hospital problems. * Discussed with nursing SIGNATURE: Allegra Pete MD PATIENT NAME: Agustina Kaye DATE: 06/09/2018 TIME: 4:32 PM PAGER: ALLIED HEALTH Observed: 06/09/2018 Status: COMPLETED Source: [place] 4:12 PM [facility] OTHER [facility]AMPUS REPOSITORY O ID: [id number] Author: Marimar (Therapist) Citlalli Service: (none) Author Type: Therapist Type: Allied Health Filed: 06/09/2018 4:13 PM Note Text: PROGRESS NOTE BEHAVIORAL HEALTH Topic of Note: Group Participation SERVICE DATE: 06/09/2018 SERVICE TIME: [id number] ? A-Pt stated that they are feeling good. Pt presented with moderate level of energy and bright?affect. Pt actively participated in activity and discussion.-I- Facilitated group re: Letting Go. Therapist provided opportunity to express thoughts and feelings. -E- Pt. could benefit from continued support, talking about thoughts and feelings in group and an opportunity to learn positive coping skills. ? SIGNATURE: Srinivasan Walsh PATIENT NAME: Agustina Kaye DATE: June 09, 2018 TIME: 4:13 PM PAGER/CONTACT #: PROGRESS Observed: 06/09/2018 Status: COMPLETED Source: [place] 9:45 AM [facility] OTHER [facility]AMPUS REPOSITORY O ID: [id number] Author: Grisel Crump Service: Psychiatry Author Type: Physician Type: Progress Notes Filed: 06/09/2018 12:26 PM Note Text: PROGRESS NOTE BEHAVIORAL HEALTH SERVICE DATE: 06/09/2018 SERVICE TIME: 9:45 AM The Interdisciplinary team met and reviewed treatment goals and discharge planning. Subjective PRNs overnight: Tramadol Med compliant Slept 6.75 hours last night. On unit/chart review:c/o anxiety and depression 09/22. Missing her family. On interview: her severe anxiety is improving. her associated low mood is improving. she denies stressors today because she has been getting Tramadol which has helped with her pain. she denies any side effects. She is happy that she was able to talk to her yesterday. States that she slept more deeply than usual. She talks about her flashbacks and how vivid they are. She now worries that her boyfriend will too. REVIEW OF SYSTEMS PSYCH: SI: No HI: No Anxiety: Yes Depression: Yes Hallucinations: No NEURO: Dystonia: No Involuntary Movements: No anticholinergic symptoms: No PFSH: Patient has communicated with home support system in the last 24 hrs. Objective PHYSICAL EXAM: BP 100/56 Pulse 80 Temp 36.5 ?C (97.7 ?F) Resp 16 Ht 168.9 cm (5' 6.5) Wt 76.4 kg (168 lb 6.9 oz) SpO2 95% BMI 26.78 kg/m? Mental Status exam: Alertness Alert AND Ox3 (PPT) -- consistent with baseline. Appearance Stated age, overweight build, wearing appropriate attire/grooming Behavior Cooperative, Appropriate Behavior, Rapport was easy to establish. Eye Contact Good Speech WNL Mood worried Affect Quality: Range: Intensity: congruent full reactive Thought Form Coherent, logical Thought Content Focused on: history, symptoms, and management Perception No hallucinations Suicidal Ideation SI: no Plan: no Intent: no. Homicidal Ideation HI: no Plan: no Intent: no. Abstraction fair Intelligence Average Insight Poor Judgment Poor Psychomotor Activity Normal Memory Recent and remote memory intact Language Intact Fund of knowledge Fair Gait: walking comfortably with a walker Station: Sitting upright with appropriate posture. NEW PROBLEMS ON UNIT SINCE LAST ENCOUNTER: None Current hospital medications: sertraline 50 mg tab(s) (ZOLOFT) 50 mg ORAL DAILY prazosin 1 mg cap(s) (MINIPRESS) 1 mg ORAL AT BEDTIME insulin lispro 5 Units pen (rapid acting) (HumaLOG KWIKPEN) 5 Units SUBCUTANEOUS w MEALS insulin glargine 47 Units pen (long acting) (LANTUS SOLOSTAR, BASAGLAR KWIKPEN) 47 Units SUBCUTANEOUS BID miconazole 2 % 1 application topical powder (LOTRIMIN AF, DESENEX) 1 application TOPICAL BID amoxicillin-clavulanic acid 875 mg tab(s) (AUGMENTIN) 875 mg ORAL q 12 H traMADol 100 mg tab(s) (ULTRAM) 100 mg ORAL q 6 H PRN pregabalin (LYRICA) cap(s) 200 mg 200 mg ORAL BID pregabalin 100 mg cap(s) (LYRICA) 100 mg ORAL DAILY wLUNCH albuterol HFA 90 mcg/actuation 2 Puff (PROVENTIL HFA, VENTOLIN HFA) 2 Puff INHALATION q 4 H PRN meloxicam 15 mg tab(s) (MOBIC) 15 mg ORAL DAILY oxybutynin 5 mg tab(s) (DITROPAN) 5 mg ORAL BID hydrOXYzine HCl 25 mg tab(s) (ATARAX) 25 mg ORAL AT BEDTIME loratadine 10 mg tab(s) (CLARITIN) 10 mg ORAL DAILY levETIRAcetam 500 mg tab(s) (KEPPRA) 500 mg ORAL BID risperiDONE 3 mg tab(s) (RisperDAL) 3 mg ORAL BID dextrose 40 % 15 g 15 g ORAL PRN glucagon 1 mg injection (GLUCAGEN) 1 mg INTRAMUSCULAR PRN dextrose 50% in water 25 mL syringe 12.5 g INTRAVENOUS PRN insulin lispro pen (rapid acting) (HumaLOG KWIKPEN) SUBCUTANEOUS w MEALS Lip Protectant with Sunscreen SPF 15 1 application Stick (Blistex) 1 application TOPICAL PRN benzocaine-menthol 1 Lozenge (CEPACOL) 1 Lozenge MUCOUS MEMBRANE (TOPICAL MOUTH AND THROAT) q 2 H PRN nicotine 21 mg/24 hr 1 Patch (NICODERM) 1 Patch TRANSDERMAL DAILY nicotine -- REMOVE patch OTHER DAILY nicotine - verify patch OTHER q 8 H LORazepam 2 mg (ATIVAN) 2 mg ORAL q 1 H PRN LORazepam 2 mg injection (ATIVAN) 2 mg INTRAMUSCULAR q 1 H PRN LORazepam 4 mg (ATIVAN) 4 mg ORAL q 1 H PRN LORazepam 4 mg injection (ATIVAN) 4 mg INTRAMUSCULAR q 1 H PRN magnesium hydroxide 400 mg/5 mL 30 mL (MOM) 30 mL ORAL DAILY PRN aluminum-magnesium hydroxide-simethicone 200-200-20 mg/5 mL 30 mL (MAALOX,MYLANTA,MAG-AL PLUS) 30 mL ORAL q 4 H PRN acetaminophen 650 mg tab(s) (TYLENOL) 650 mg ORAL q 6 H PRN haloperidol lactate 5 mg injection (HALDOL) 5 mg INTRAMUSCULAR q 4 H PRN haloperidol 5 mg tab(s) (HALDOL) 5 mg ORAL q 4 H PRN diphenhydrAMINE 50 mg injection (BENADRYL) 50 mg INTRAMUSCULAR q 4 H PRN diphenhydrAMINE 50 mg (BENADRYL) 50 mg ORAL q 4 H PRN LORazepam 2 mg injection (ATIVAN) 2 mg INTRAMUSCULAR q 4 H PRN LORazepam 2 mg (ATIVAN) 2 mg ORAL q 4 H PRN baclofen 10 mg tab(s) (LIORESAL) 10 mg ORAL TID PRN mometasone 220 mcg (14 doses) 1 Puff inhaler (ASMANEX) 1 Puff INHALATION DAILY DATA: Diagnostic tests reviewed for today's visit: Most recent labs and imaging results. Assessment/Plan RISK ASSESSMENT: Suicide: moderate Homicide: low Deliberate Self-Harm: low Aggression: low Imminent Physical Self Impairment: low INFORMED CONSENT: Yes, completed with the Patient. Discussed the risks, benefits and alternatives to the medication(s) recommended. Consent was given. DIAGNOSIS: Principal Problem: PTSD (post-traumatic stress disorder) - with suicide attempt POA: Yes Assessment AND Plan: Seems to be doing substantially better today - this is likely due to the 400 mg of Tramadol she has received in the last 24 hours. Will significantly reduce the Tramadol now and keep her other medications without change. Active Problems: Type 2 diabetes mellitus with skin complication, with long- term current use of insulin (HCC) POA: Yes Assessment AND Plan: med Schizoaffective disorder, bipolar type (HCC) POA: Yes Assessment AND Plan: stable Hypercholesteremia POA: Yes Assessment AND Plan: med Urinary frequency POA: Yes Assessment AND Plan: med Yeast infection POA: Yes Assessment AND Plan: med Aspiration pneumonia (HCC) POA: Yes Assessment AND Plan: med Resolved Problems: * No resolved hospital problems. * Psychological: groups, milieu Social: DC planning DISCHARGE PLANNING: likely Tuesday JUSTIFICATION FOR CONTINUED ADMISSION: Further medication changes are required., Patient remains a threat to harm self or others if discharged., More time is required for medications to work and Further observation is required to ensure improvement is sustained. SIGNATURE: Grisel Crump MD PATIENT NAME: Agustina Kaye DATE: June 09, 2018 TIME: 9:45 AM PAGER/CONTACT#: NURSING PROG Observed: 06/09/2018 Status: COMPLETED Source: [place] 8:18 AM CLINIC OTHER CAMPUS REPOSITORY HNO ID: [id number] Author: Nathaly BartholomewRn) KIARRA Hogan Service: Nursing Author Type: Registered Nurse Type: Nursing Progress Note Filed: 06/09/2018 11:43 AM Note Text: Nursing Progress Note Patient Name: Agustina Kaye Patient Location: [place] [address] [address]* Daily Note: Pt sitting in day [place] when approached by this RN. Pt pleasant and calm during interaction. Pt compliant with scheduled medications. Pt denies feeling anxious or depressed. Pt states my mood has been good since being here. Pt further states my hallucinations have also stopped since I have been here, it is really a great thing. Pt denies SI/HI/AH/VH. Pt has been noted to be social and appropriate on the unit. Pt voices no complaints or concerns outside of pain in her back which she received her PRN Tramadol 100mg PO for 8/10 pain at this time. Encouraged pt to attend groups, interact with peers and to seek out staff as needed. Pt remains safe. Will continue to monitor. This note was completed by: Nathaly Hogan RN NURSING PROG Observed: 06/08/2018 Status: COMPLETED Source: [place] 9:15 PM [facility] REPOSITORY HNO ID: [id number] Author: Iván (Rn) KIARRA Navarro Service: Nursing Author Type: Registered Nurse Type: Nursing Progress Note Filed: 06/08/2018 10:13 PM Note Text: Nursing Progress Note Patient Name: Agustina Kaye Patient Location: [place] [address] [address]* Daily Note: Patient approached nurse's station asking about night time medication, this nurse complied. Patient calm hygienic cooperative and dressed in her own clothing. Patient states that she has been eating and sleeping fine. Patient denies suicidal and homicidal ideation, and auditory and visual hallucinations. Patient rates both her anxiety and depression a 5/10 and attributes them to talking to her on the phone and not being at home with him. Offered patient emotional support and reassurance. Encouraged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 REPOSITORY Gram Stain Gram Stain 2+ White Blood Cells 2+ Gram positive rods 2+ Yeast Like Organisms 1+ Epithelial cells Resp. Culture ORGANISM 1: Escherichia coli Amount Growth 1+ ORGANISM 2: Presumptive C albicans Amount Growth 1+ Escherichia coli: REACTION Ampicillin $ <=2 S Ampicillin/Sulbactam $ <=2 S Cefazolin $ <=4 S Cefepime $ <=0.12 S Ceftazidime *NF <=1 S Ceftriaxone $ <=0.25 S Ciprofloxacin $ <=0.25 S Ertapenim $$$ <=0.12 S ESBL NEG Gentamicin $ <=1 S Imipenem *NF <=0.25 S Levofloxacin $ <=0.12 S Piperacillin/Tazobactam $$ <=4 S Tobramycin $ <=1 S Trimethoprim/Sulfametho $ <=20 S (NF) indicates non-formulary drug at [facility]. Approval by Infectious Disease Specialist required before non-formulary drugs may be ordered and/or dispensed. Performed By: #### M100.0800 #### [facility] [address] [place], [address] BEDSIDE GLUCOSE Collected: 06/05/2018 Status: F Source: [place] 6:29 PM [facility] REPOSITORY TYPE CODE TESTS RESULT OUT OF RANGE REFERENCE UNITS LAB L501.080 70-110 mg/dL Normal BEDSIDE GLU 88 Result Comment: MANAGEMENT OF PATIENT CARE PER NURSING PROTOCOL Performed By: #### L501.080 #### [facility] Point of Care [address] [place] [address] HISTORY AND PHYSICAL Observed: 06/05/2018 Status: F Source: [place] EXAM 4:15 PM [facility] REPOSITORY [facility] Medical Records Department [address] [place] [address] History and Physical 06/05/18 1502 MR#: [id number] Acct: [id number] Name: AGUSTINA KAYE Rep #: [id number] : 1970 47 From: David Denise MD PCP: Maddie Valadez MD Status: ADM IN Y Location: ICU ICU02-1 Problem List (1) UTI (urinary tract infection) Status: Acute (2) Pneumonia Status: Acute (3) Dehydration Status: Acute (4) Hyperglycemia Status: Acute (5) Peripheral neuropathy Status: Chronic Qualifiers: (6) Anxiety Status: Chronic (7) Depression Status: Chronic (8) Type II diabetes mellitus Status: Chronic Qualifiers: History of Present Illness Date of Admission: 06/05/18 Chief Complaint: Lethargy The patient is a 47 year old F who presented from home by EMS because of altered mental status and unresponsiveness. She is not alert to be able to give a history. She does arouse to excessive stimuli. No family is at bedside during the interview, and most of the history was obtained by chart review. Her significant other called EMS because he knows that she was unresponsive and breathing very slowly, when EMS arrived they maryann blood sugar and it was 300. They gave her a dose of Narcan at the house, and she was given a dose of Narcan here in the ER, neither of which seem to help. A UDS in the ER was positive for benzos. She also takes Tegretol and that lab was sent out as well and her level was low. An ABG done in the ER showed a pH of 7.32 with a PCO2 of 49 and a PO2 of 70, and therefore she was initially transferred to PCU stepdown on BiPAP. It was also noticed during her initial presentation that a chest x-ray demonstrated right lower lung patchy infiltrates possibly due to aspiration given her unresponsiveness or community-acquired pneumonia. There was no history of emesis her the ER documentation. Also on presentation her blood sugars were elevated into the 400s and she had a UA that was consistent with her Charles tract infection. Past Medical History Past Medical History (Chronic Problems): Chronic Problems Ulcer of finger (Chronic) Peripheral neuropathy (Chronic) Anxiety (Chronic) Depression (Chronic) Type II diabetes mellitus (Chronic) Allergies Sulfa (Sulfonamide Antibiotics) Allergy (Verified 06/05/18 09:29) Hives Home Medications: Ambulatory Orders Medication Instructions Recorded Lorazepam [Ativan] 2 mg PO TID 06/23/15 Surgical History: cholecystectomy, - - Tubal ligation. Smoking Status: Current every day smoker Tobacco Use: Cigarettes - *Family History Maternal History Items: No pertinent history Paternal History Items: No pertinent history Review of Systems Unable to obtain accurate/complete ROS d/t: Unresponsiveness VTE Information - Inpt Only VTE Present on Admission: No Patient Problems: Active and Suspected Problems UTI (urinary tract infection) (Acute) Pneumonia (Acute) - Physical Exam General: Lethargic, - - Responsive to vigorous stimuli only HEENT: Atraumatic, Normocephalic, - - Left eye is cloudy, chronic Oral: Dry Mucosa Neck: Supple, No JVD, Trachea Midline Lungs: Clear to auscultation, Normal air movement, No rhonchi, No wheeze, No rales, Diminished Cardiovascular: Regular rate, Regular Rhythm, Normal S1, Normal S2, No murmurs Abdomen: Soft, Non-Distended, No Hepato-splenomegaly Extremities: No edema, Capillary Refill Less than 3 Seconds Skin: No rashes, No breakdown Neurological: - - Lethargic not cooperative Psych/Mental Status: - - Unable to assess due to lethargy Vital Signs Temp Pulse Resp BP Pulse Ox 98.7 F 99 14 104/76 97 06/05/18 14:00 06/05/18 14:00 06/05/18 14:00 06/05/18 14:00 06/05/18 14:00 Oxygen Flow Rate (L/min) 4 Oxygen Delivery Method Bi-pap Weight: 172 lb 2.896 oz Body Mass Index (BMI) 27.8 Finger Stick Blood Glucose 456 Laboratory Tests Past 24 Hrs WBC RBC Hgb Hct MCV MCH MCHC RDW RDW Differential Plt Count MPV Immature Gran % (Auto) Neut % (Auto) WBC RBC Hgb Hct MCV MCH MCHC RDW RDW Differential Plt Count MPV POC Glucose POC Glucose 269 H 456 H* Assessment/Plan All Active Problems UTI (urinary tract infection) (Acute) Pneumonia (Acute) Leukocytosis (Acute) Dehydration (Acute) Hyperglycemia (Acute) 1. Sepsis secondary to aspiration versus community-acquired pneumonia and UTI/acute hypoxic and hypercapnic respiratory failure secondary to sepsis and pneumonia/AK I/encephalopathy unsure type -She was given a dose of Unasyn done in the ER which will be continued as this covers both lung and urine source -Blood and urine cultures are pending -Initiate BiPAP therapy and recheck ABG in an hour -Patient creatinine is 0.8 and today on admission she is 1.32 we will continue with IV fluids she received 2 L bolus done in the ER as well as, is 150 cc/h maintenance -Lactate on admission was 3.5 on repeat she was down to 1.4 2. DM 2 with peripheral neuropathy -She is on insulin at home with 40 units of long-acting insulin twice daily -We will continue her long-acting insulin as well as sliding scale insulin -When she is out of her sepsis and her lethargic state can continue her Lyrica 3. Anxiety/depression/Schizophrenia and h/o grand mal seizures - Tegretol level is low - C/w keppra, risperidone, and seroquel once she becomes more alert DVT: Lovenox/SCDs Code Visit Inpatient E AND M: [id number] Init Hosp L3 06/05/18 1615 <Electronically signed by David Denise MD> Date David Denise MD Cosigner Signature: Date (if applicable) CC: Maddie Valadez MD; David Denise MD Signed BLOOD GASES BY CPS Collected: 06/05/2018 Status: F Source: LEESA 4:14 PM [facility] REPOSITORY TYPE CODE TESTS RESULT OUT OF RANGE REFERENCE UNITS LAB L9000.9990 Normal BLD GAS TYPE ART LAB L9001.1000 Normal SITE R Radial LAB L9001.1010 Normal ISELA TEST POS LAB L9001.1048 Normal Mode A-C LAB L9001.1050 O2 Normal Delivery Dev Vent LAB L9001.1065 Vt Normal 450 LAB L9001.1070 RR Normal 12 LAB L9001.1074 Normal FI02 35 LAB L9001.1076 Normal PEEP 5 LAB L9001.1104 Normal Results To ICU LAB L9001.1105 Normal Time Given 1615 LAB L9001.1110 7.35-7.45 pH Normal - I-STAT 7.37 LAB L9001.1210 35-45 mmHg High pCO2 - ISTAT 49.1 LAB L9001.1310 75-100 mmHG Low PO2 I-STAT 65 LAB L9001.2300 22-26 mmol/L High HCO3 ISTAT 28.0 LAB L9001.2400 -2 to +2 mmol/L High BE ISTAT 3 LAB L9001.2415 mmol/L Normal TOTAL CO2 30 ISTAT LAB L9001.2425 95-99 % Low SO2 ISTAT 91 Performed By: #### L9000.0800 #### [facility] Point of Care [address] [place] [address] CHEST 1 VIEW Observed: 06/05/2018 Status: F Source: LEESA (PORTABLE) 3:37 PM [facility] REPOSITORY [facility] Imaging Services [address] [place] [address] Chest 1 View (Portable) MR#: [id number] Acct: [id number] Name: AGUSTINA KAYE Rep #: [id number] : 1970 F 47 From: Pavan Hogan MD PCP: Maddie Valadez MD Status: ADM IN Study: Chest 1 View (Portable) Date of Exam: 06/05/18 Exam# [id number] Ordering Dr: Jorge Rider MD STUDY: X-RAY CHEST REASON FOR EXAM: Female, 47 years old. Orogastric tube placement. Endotracheal tube. TECHNIQUE: Portable AP supine chest. COMPARISON: 06/05/2018 FINDINGS: The endotracheal tube tip terminates approximately 3 cm cephalad of the bernie. The orogastric tube tip terminates off the zvhqa-gw-owom in the region of the stomach, below the esophagogastric junction. Persistent hazy perihilar for trace bilaterally with bandlike atelectasis at the lung bases bilaterally without apparent effusion or pneumothorax. Normal cardiomediastinal silhouette, rachael and pleural margins. No acute osseous or upper abdominal process. RAD/Chest 1 View (Portable) IMPRESSION: Stable bilateral infiltrates. Bibasilar atelectasis. Support devices as described above. The endotracheal tube tip has been removed from the right mainstem bronchus and now lies above the level of the bernie. Electronically Signed: Pavan Hogan MD at 18:15 EST Tel , Service support , CC: Maddie Valadez MD; Jorge Rider MD Senior Tax Analyst: Signed CHEST 1 VIEW Observed: 06/05/2018 Status: F Source: LEESA (PORTABLE) 3:00 PM [facility] REPOSITORY [facility] Imaging Services [address] [place] [address] Chest 1 View (Portable) MR#: [id number] Acct: [id number] Name: AGUSTINA KAYE Rep #: [id number] : 1970 F 47 From: Pavan Hogan MD PCP: Maddie Valadez MD Status: ADM IN Study: Chest 1 View (Portable) Date of Exam: 06/05/18 Exam# [id number] Ordering Dr: Jorge Rider MD STUDY: X-RAY CHEST REASON FOR EXAM: Female, 47 years old. Endotracheal tube, gastric tube placement. TECHNIQUE: Portable chest AP supine COMPARISON: 06/05/2017 FINDINGS: Endotracheal tube tip within right mainstem bronchus. On subsequent images the tube was repositioned appropriately. Orogastric tube tip off the [id number] in the region of the stomach. Hazy bilateral perihilar infiltrates, bibasilar bandlike atelectasis, progressed since imaging earlier today. Normal cardiomediastinal silhouette, rachael and pleural margins. No acute osseous or upper abdominal process. RAD/Chest 1 View (Portable) IMPRESSION: Endotracheal tube tip within right mainstem bronchus subsequently properly positioned. Orogastric tube tip within stomach. Bilateral perihilar hazy infiltrates progressed compared to prior imaging earlier in the day at 06/05/2017. These probably occurred due to obstruction of the right upper lobe bronchus, and incomplete aeration of the left mainstem bronchus due to right mainstem intubation. Electronically Signed: Pavan Hogan MD at 18:17 EST Tel , Service support , CC: Maddie Valadez MD; Jorge Rider MD Senior Tax Analyst: Signed BLOOD GASES BY CPS Collected: 06/05/2018 Status: F Source: [place] 2:19 PM [facility] REPOSITORY TYPE CODE TESTS RESULT OUT OF RANGE REFERENCE UNITS LAB L9000.9990 Normal BLD GAS TYPE ART LAB L9001.1000 Normal SITE R Radial LAB L9001.1010 Normal ISELA TEST POS LAB L9001.1050 O2 Normal Delivery Dev Bi / C PAP LAB L9001.1070 RR Normal 12 LAB L9001.1074 Normal FI02 35 LAB L9001.1088 Normal IPAP 10 LAB L9001.1090 Normal EPAP 5 LAB L9001.1104 Normal Results To ICU LAB L9001.1105 Normal Time Given 1420 LAB L9001.1110 7.35-7.45 Low pH - I-STAT 7.30 LAB L9001.1210 35-45 mmHg High pCO2 - ISTAT 57.8 LAB L9001.1310 75-100 mmHG Low PO2 I-STAT 74 LAB L9001.2300 22-26 mmol/L High HCO3 ISTAT 28.5 LAB L9001.2400 -2 to +2 mmol/L BE Normal ISTAT 2 LAB L9001.2415 mmol/L Normal TOTAL CO2 30 ISTAT LAB L9001.2425 95-99 % Low SO2 ISTAT 93 Performed By: #### L9000.0800 #### [facility] Point of Care [address] [place] [address] LACTIC ACID Collected: 06/05/2018 Status: F Source: LE[place] 1:30 PM [facility] REPOSITORY TYPE CODE TESTS RESULT OUT OF RANGE REFERENCE UNITS LAB L503.6005 0.4-2.0 mmol/L Normal LACTIC ACID 1.4 Performed By: #### L503.6005 #### [facility] [address] [place], [address] BEDSIDE GLUCOSE Collected: 06/05/2018 Status: F Source: LE[place] 12:45 PM [facility] REPOSITORY TYPE CODE TESTS RESULT OUT OF REFERENCE UNITS RANGE LAB L501.080 70-110 mg/dL High BEDSIDE GLU 269 Result Comment: MANAGEMENT OF PATIENT CARE PER NURSING PROTOCOL Performed By: #### L501.080 #### [facility] Point of Care [address] [place] [address] EMERGENCY DEPARTMENT Observed: 06/05/2018 Status: F Source: [place] SUMMARY 11:11 AM [facility] REPOSITORY [facility] Medical Records Department [address] [place] [address] Emergency Department Summary 06/05/18 0906 MR#: [id number] Acct: [id number] Name: AGUSTINA KAYE Rep #: [id number] : 1970 47 From: Jonatan Rizzo MD PCP: Maddie Valadez MD Status: REG ER - ER Visit Summary Date of Service: 06/05/18 Chief Complaint: Unresponsive History of Present Illness: The patient is a 47 F who is his significant other called EMS today because she was unresponsive. He states that she was only breathing a couple times a minute. Upon EMS arrival they assisted ventilation with bag valve mask. They administered Narcan and the patient was minimally improved after this. During the transport she started breathing on her own. She denies any drug use. Her blood glucose by EMS was 300 by EMS. She has no history of diabetes. She does not give much history due to her mental status. arrived to the emergency department later and states that he was sitting S to her on the couch and she acted like she was not breathing and he called EMS. He denies that she used any drugs. He denies any seizure-like activity. Physical Examination: Vital signs are reviewed. Patient is tachycardic in the 130s. HEENT exam reveals right pupil is 4 mm. The left pupil was altered due to her previous accident. Her neck is supple. Heart is tachycardic and regular rhythm without murmurs. Lungs are clear bilaterally. Abdomen soft and nontender. Extremities reveal no edema. Skin exam reveals no rashes. She is alert and oriented to self only. She has garbled speech. She moves all extremities equally. Test Results: Chest x-ray shows right lower lobe infiltrate. CT head normal. White blood cell count 14. Glucose 461, creatinine 1.32. Urinalysis negative for infection. Lactate 3.5. Ketones are negative. Alcohol level is unremarkable. Tox screen reveals benzodiazepines. ABG is 7.32/49/70/25 Emergency Department Course and Treatment: The patient was given Narcan upon arrival without any significant change in her mental status. She does answer questions but is very drowsy. She is given 2 L normal saline. There is no evidence of any intracranial pathology. Her OARRS report does show benzodiazepines that she is prescribed. However, I am concerned she may have taken more than prescribed. states that she had no seizure-like activity this morning. Throughout her hospital stay she continued to follow commands but was drowsy and her pulse ox did drop when she did fall asleep. I will give her IV Unasyn for this pneumonia which I suspect is likely aspiration. Patient will be admitted to the hospital. Treatment Plan: [] Disposition: Admit to PCU stepdown Impression: Encephalopathy Aspiration pneumonia Hyperglycemia Severe sepsis Critical care time 35 minutes This note was generated with The Influenceation software. It may contain incorrect words, spelling, and punctuation that were not noted in review of the chart prior to signing ED Disposition - Plan for ED Patient: Chief Complaint: Overdose Referrals: Maddie Vlaadez MD [Primary Care Provider] - What to do if you have Problems For any increased pain, shortness of breath, bleeding, nausea or vomiting, chest pain, or any unexpected problems, contact your Primary Care Provider. Call [facility] ([phone]) or report to the closest Emergency Room. Call 911 if necessary. 06/05/18 1111 <Electronically signed by Jonatan Rizzo MD> Date Jonatan Rizzo MD Cosigner Signature (If Indicated): Date CC: Maddie Valadez MD Observed: 06/05/2018 Status: F Source: [place] CULTURE, BLOOD (WB) 11:10 AM [facility] REPOSITORY BC No growth in 5 days. Performed By: #### M200.1000 #### [facility] [address] [place], [address] URINE DRUG SCREEN Collected: 06/05/2018 Status: F Source: LEESA (VISTA) 10:28 AM [facility] REPOSITORY Order Comment: Order Date: 06/05/18 Has pt arrived? Y TYPE CODE TESTS RESULT OUT OF RANGE REFERENCE UNITS LAB L505.0075 TO BE Normal CONFIRMED Result Comment: CONFIRMATORY TESTING FOR ALL POSITIVE URINE DRUG SCREEN RESULTS WILL ONLY BE SENT OUT UPON PHYSICIAN ORDER. VISTA Urine Drug Screen methods provide only preliminary analytical test results. A more specific alternate chemical method must be used in order to obtain a confirmed analytical result. Gas chromatography/mass spectrometery (GC/MS) is the preferred confirmatory method. Clinical consideration and professional judgement should be applied to any drug of abuse test result, particularly when preliminary positive results are used. URINE TCA TESTING MUST BE ORDERED SEPARATELY. USE TEST MNEMONIC: [facility] LAB L505.5005 VISTA UDS PH 5 Normal LAB L505.5015 <1000 ng/mL AMPHETAMINES Normal NEGATIVE LAB L505.5025 < 200 ng/mL BARBITIURATES Normal NEGATIVE LAB L505.5035 < 200 High ng/mL BENZODIAZIPINE POSITIVE LAB L505.5045 < 300 ng/mL COCAINE Normal NEGATIVE LAB L505.5055 < 500 ng/mL ECSTACY Normal NEGATIVE LAB L505.5065 < 300 ng/mL METHADONE Normal NEGATIVE LAB L505.5075 < 300 ng/mL OPIATES Normal NEGATIVE LAB L505.5085 < 25 ng/mL PCP Normal NEGATIVE LAB L505.5095 < 50 ng/mL THC Normal NEGATIVE Performed By: #### L505.5000 #### [facility] [address] [place], [address] URINALYSIS, COMPLETE Collected: 06/05/2018 Status: F Source: QU[place] 10:28 AM [facility] REPOSITORY Order Comment: Order Date: 06/05/18 Has pt arrived? Y How was Urine Obtained? CLEAN CATCH TYPE CODE TESTS RESULT OUT OF RANGE REFERENCE UNITS LAB L400.3000 Yellow COLOR Normal Yellow LAB L400.3050 Clear Normal CLARITY Sl. Cloudy LAB L400.3200 Normal mg/dl High GLUCOSE, UR 1000 LAB L400.3300 Negative mg/dL Normal BILIRUBIN URINE Negative LAB L400.3400 Negative mg/dl Normal KETONE UR Negative LAB L400.3465 1.002-1.030 Normal SP.GR. DIPSTX 1.020 LAB L400.3550 5.0 - 8.0 pH UR Normal 5.0 LAB L400.3600 Negative mg/dl PROT Normal DIPSTX Negative LAB L400.3700 Normal mg/dl Normal UROBILI Normal LAB L400.3750 Negative High NITRITE UR Positive LAB L400.3780 Negative /ul High 10 OCCULT BLOOD-UR LAB L400.3800 Negative /ul High LEUK 25 ESTERASE LAB L400.4050 0-5 /hpf WBC Normal 0-5 SEEN LAB L400.4100 0-5 /hpf Normal RBC-UA 0-5 SEEN LAB L400.4150 5-10 /hpf SQUAM Normal EPI 0-5 SEEN LAB L400.4300 None Seen /hpf 1+ Normal BACTERIA LAB L400.4350 <or=2+ /hpf 0 Normal MUCUS, URINE SEEN Performed By: #### L400.0001 #### [facility] [address] [place], [place], [address] Observed: 06/05/2018 Status: F Source: [place] CULTURE, URINE 10:28 AM [facility] REPOSITORY Order Date: 06/05/18 Has pt arrived? Y Urine Culture ORGANISM 1: Presumptive E. coli Jackson Count 80,000-100,000 Presumptive E. coli: REACTION Ampicillin $ <=2 S Ampicillin/Sulbactam $ <=2 S Cefazolin $ <=4 S Cefepime $ <=0.12 S Ceftazidime *NF <=1 S Ceftriaxone $ <=0.25 S Ciprofloxacin $ <=0.25 S Ertapenim $$$ <=0.12 S ESBL NEG Gentamicin $ <=1 S Imipenem *NF <=0.25 S Levofloxacin $ <=0.12 S Nitrofurantoin $ <=16 S Piperacillin/Tazobactam $$ <=4 S Tobramycin $ <=1 S Trimethoprim/Sulfametho $ <=20 S (NF) indicates non-formulary drug at [facility]. Approval by Infectious Disease Specialist required before non-formulary drugs may be ordered and/or dispensed. Performed By: #### M100.0650 #### [facility] [address] [place], [place], [address] BLOOD GASES BY CPS Collected: 06/05/2018 Status: F Source: [place] 9:11 AM [facility] REPOSITORY TYPE CODE TESTS RESULT OUT OF RANGE REFERENCE UNITS LAB L9000.9990 Normal BLD GAS TYPE ART LAB L9001.1000 L Normal SITE Brachial LAB L9001.1010 NA Normal ISELA TEST LAB L9001.1050 O2 Normal Delivery Dev Nasal Can LAB L9001.1055 /min Normal LPM 2.0 LAB L9001.1104 ED Normal Results To MD LAB L9001.1105 Normal Time Given 830 LAB L9001.1110 7.35-7.45 Low pH - I-STAT 7.32 LAB L9001.1210 35-45 mmHg High pCO2 - ISTAT 49.5 LAB L9001.1310 75-100 mmHG Low 70 PO2 I-STAT LAB L9001.2300 22-26 mmol/L Normal HCO3 ISTAT 25.4 LAB L9001.2400 -2 to +2 mmol/L BE -1 Normal ISTAT LAB L9001.2415 mmol/L 27 Normal TOTAL CO2 ISTAT LAB L9001.2425 95-99 % Low 92 SO2 ISTAT Performed By: #### L9000.0800 #### [facility] Point of Care [address] [place] [address] LACTIC ACID Collected: 06/05/2018 Status: F Source: [place] 9:10 AM [facility] REPOSITORY Order Comment: Yes/No query for Sepsis Lactate Rule Y TYPE CODE TESTS RESULT OUT OF REFERENCE UNITS RANGE LAB L503.6005 0.4-2.0 mmol/L High LACTIC ACID 3.5 Result Comment: Critical Result(s) Called at: 09:49:49 06/05/2018 by: Tammie Mendez Performed By: #### L503.6005 #### [facility] [address] [place] [address], [address] CHEST 1 VIEW Observed: 06/05/2018 Status: F Source: [place] (PORTABLE) 9:04 AM [facility] REPOSITORY [facility] Imaging Services [address] [place], [place] [address] [place] [address] Chest 1 View (Portable) MR#: [id number] Acct: [id number] Name: AGUSTINA KAYE Rep #: [id number] : 1970 F 47 From: Carlos Borges MD PCP: Maddie Valadez MD Status: PRE ER Study: Chest 1 View (Portable) Date of Exam: 06/05/18 Exam# [id number] Ordering Dr: Jonatan Rizzo MD STUDY: X-RAY CHEST REASON FOR EXAM: Female, 47 years old. Overdose. Cough. TECHNIQUE: Single AP portable view of the chest. COMPARISON: Comparison is made with prior study dated November 12, 2016. FINDINGS: EKG electrodes are seen. Patchy infiltrates and/or atelectasis at the lung bases worse on the right side. There is no demonstrated pleural abnormality. Normal size heart. Normal mediastinum and rachael. Normal visualized pulmonary arteries. Normal visualized aortic arch and descending thoracic aorta. Normal visualized thoracic spine. Normal visualized ribs, clavicles, and shoulders. There is no demonstrated abnormality of the visualized soft tissue structures of the upper abdomen. RAD/Chest 1 View (Portable) IMPRESSION: Patchy infiltrate/atelectasis at the lung bases worse on the right lung base. Electronically Signed: Carlos Borges MD at 9:43 EST Tel [phone], Service support , CC: Maddie Valadez MD; Jonatan Rizzo MD Senior Tax Analyst: Signed BRAIN/HEAD WITHOUT Observed: 06/05/2018 Status: F Source: [place] CONTRAST 9:04 AM [facility] REPOSITORY [facility] Imaging Services [address] [place] [address] Brain/Head without Contrast MR#: [id number] Acct: [id number] Name: AGUSTINA KAYE Rep #: [id number] : 1970 F 47 From: Carlos Borges MD PCP: Maddie Valadez MD Status: PRE ER Study: Brain/Head without Contrast Date of Exam: 06/05/18 Exam# [id number] Ordering Dr: Jonatan Rizzo MD STUDY: CT BRAIN WITHOUT CONTRAST REASON FOR EXAM: Female, 47 years old. Altered mental status. Hyperglycemia. RADIATION DOSAGE (If Supplied By Facility): CTDIvol = ( 44.99 ) mGy, DLP = ( 762.36 ) mGycm TECHNIQUE: Transaxial CT imaging of the brain was performed without administration of intravenous contrast material. Individualized dose optimization techniques were used for this CT. COMPARISON: Comparison is made with prior study dated November 23, 2016. FINDINGS: Normal soft tissue structures. Normal calvarium. Normal size ventricles and extra-axial spaces for the patient's age. Normal white matter tracts of the cerebral hemispheres. Normal basal ganglia and thalami. Normal brainstem. Normal cerebellum. There is no intracranial hemorrhage. There are no findings of an acute ischemic infarction. Normal visualized paranasal sinuses. CT/Brain/Head without Contrast IMPRESSION: Normal unenhanced CT scan of the brain. Electronically Signed: Carlos Borges MD at 9:44 EST Tel [phone], Service support , CC: Maddie Valadez MD; Jonatan Rizzo MD Senior Tax Analyst: Signed BEDSIDE GLUCOSE Collected: 06/05/2018 Status: F Source: [place] 9:00 AM [facility] REPOSITORY TYPE CODE TESTS RESULT OUT OF REFERENCE UNITS RANGE LAB L501.080 70-110 mg/dL High alert BEDSIDE GLU 456 Result Comment: Dr Terrell Followed MANAGEMENT OF PATIENT CARE PER NURSING PROTOCOL Performed By: #### L501.080 #### [facility] Point of Care [address] [place], [place] [address] CBC W/DIFF, AUTOMATED Collected: 06/05/2018 Status: F Source: [place] 9:00 AM [facility] REPOSITORY TYPE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 postsurgical hematoma or choroidal detachment. Clinical correlation recommended There is mild mucosal thickening within the right sphenoid sinus Normal calvarium and skull base. Normal visualized soft tissue structures. Normal visualized upper cervical spine. MRI/Brain W/WO Contrast IMPRESSION: Normal unenhanced and enhanced MRI of the brain. Findings which may be consistent with choroidal detachment or less likely small hematoma in the left orbit status post surgery for retinal detachment Electronically Signed: Luther Santos MD at 19:01 EDT , Service support , CC: Carla Shook MD; Maddie Valadez MD Senior Tax Analyst: Signed BRAIN WITHOUT Observed: 02/06/2018 Status: F Source: [place] CONTRAST 1:19 PM [facility] REPOSITORY [facility] Imaging Services [address] [place] [address] Brain without Contrast MR#: [id number] Acct: [id number] Name: AGUSTINA KAYE Loy Rep #: [id number] : 1970 F 47 From: Luther Santos MD PCP: Alexandra Catalan DO Status: REG CLI Study: Brain without Contrast Date of Exam: 02/06/18 Exam# [id number] Ordering Dr: Oly Shook MD STUDY: MRI BRAIN WITHOUT CONTRAST REASON FOR EXAM: Female, 47 years old. Seizures for 8 months TECHNIQUE: Standardized multiplanar fat and water weighted pulse sequences were obtained. COMPARISON: CT of the brain on November 23, 2016 FINDINGS: Normal size of the ventricles and extra-axial spaces for the patient's age. Nonspecific increased signal within the splenium of the corpus callosum.. Normal bilateral basal ganglia. Normal thalami. There is no extra-axial fluid accumulation. Normal flow voids within the major intracranial circulation suggesting patency by spin echo criteria. Normal sella turcica, pituitary gland, infundibular stalk, optic chiasm and hypothalamus. Normal tectal plate and pineal gland. Normal midbrain, sachi and medulla. Normal cerebellum. Normal basal cisterns. Normal bilateral temporal bones. Normal bilateral internal auditory canals. Atypical appearance to the left optic lobe possibly representing vitreous hemorrhage. Cannot exclude coexisting mass... Normal visualized paranasal sinuses. Normal calvarium and skull base. Normal visualized soft tissue structures. Normal visualized upper cervical spine. MRI/Brain without Contrast IMPRESSION: Nonspecific increased signal within the splenium of the corpus callosum of uncertain etiology. Possibility of neoplasm or demyelinating disease not excluded. Limited repeat study with contrast would be helpful for further evaluation Incidental finding of left intraocular lesion of uncertain etiology and significance. Clinical correlation recommended Electronically Signed: Luther Santos MD at 22:48 EDT , Service support , CC: Carla Shook MD; Alexandra Catalan DO Senior Tax Analyst: Signed SPINE CERVICAL Observed: 10/06/2017 Status: F Source: [place] (ROUTINE) 6:24 PM [facility] REPOSITORY [facility] Imaging Services [address] [place] [address] Spine Cervical (Routine) MR#: [id number] Acct: [id number] Name: AGUSTINA KAYE Rep #: [id number] : 1970 F 47 From: Luther Santos MD PCP: Alexandra Catalan DO Status: REG CLI Study: Spine Cervical (Routine) Date of Exam: 10/06/17 Exam# [id number] Ordering Dr: Alexandra Rueda SENIOR MORTGAGE LOAN PROCESSOR-C STUDY: MRI CERVICAL SPINE WITHOUT CONTRAST REASON FOR EXAM: Female, 47 years old. Chronic neck pain with bilateral extremity weakness TECHNIQUE: Standardized fat and water weighted pulse sequences were obtained in the sagittal and axial planes. COMPARISON: None FINDINGS: Normal foramen magnum and brainstem-cervical cord junction. Normal craniovertebral junction. Normal anterior atlantoaxial articulation. Normal odontoid process. Decreased cervical lordosis. Normal vertebral bodies and posterior osseous elements. C2-3: Normal endplates. Normal disc height, signal and morphology. Normal central canal and intervertebral neural foramina. C3-4: Normal endplates. Normal disc height, signal and morphology. Normal central canal and intervertebral neural foramina. C4-5: Normal endplates. Normal disc height, signal and morphology. Normal central canal and intervertebral neural foramina. C5-6: Normal endplates. Normal disc height, signal and tiny central disc protrusion. Normal central canal and intervertebral neural foramina. C6-7: Normal endplates. Normal disc height, signal and tiny left posterolateral disc protrusion.. Normal central canal and intervertebral neural foramina. C7-T1: Normal endplates. Normal disc height, signal and morphology. Normal central canal and intervertebral neural foramina. Normal cervical cord. Normal visualized soft tissue structures. MRI/Spine Cervical (Routine) IMPRESSION: No evidence for acute fracture or subluxation. Tiny central disc protrusion at C5-6 and tiny left posterolateral disc protrusion at C6-7 without significant spinal stenosis Electronically Signed: Luther Snatos MD at 22:19 EDT , Service support , CC: Alexandra PARKS Prebish; Alexandra Catalan DO Senior Tax Analyst: Signed RE-EVALUATION - PT (1) Observed: 09/07/2017 Status: F Source: [place] 2:01 PM [facility] REPOSITORY [facility] [address] [place] [address] Fax REEVALUATION / MEDICARE RECERTIFICATION PHYSICAL THERAPY MR#: [id number] Acct: [id number] Name: MIKKIAGUSTINA D Rep #: [id number] : 1970 47 From: Aminah Barnes PT, Cert. T Referring DrJuli: Alexandra Catalan DO Status: REG RCR Insurance: [facility] SELF PAY INSURANCE Alexandra Catalan DO, It has been my pleasure to treat AGUSTINA KAYE over the last 4 visits for NECK PAIN. Please see the progress note below for an update on the physical therapy plan of care! Subjective: PATIENT REPORTS SHE HAS NOT BEEN COMING TO PT BECAUSE PT MAKES HER HURT WORSE. SHE REPORTS SHE IS BACK BECAUSE HER DOCTOR WANTS HER TO TRY IT AGAIN BUT IF IT CAUSES INCREASED PAIN SHE WANTS TO BE RELEASED. PATIETN REPORTS SHE HAS AN APPOINTMENT WITH A NEUROLOGIST SEP 21 2017. PATIENT REPORTS SHE IS ABOUT THE SAME OR WORSE SINCE HER INITIAL PT VISIT IN MAY. Objective/Function: UPON EXAM, THERE ARE NO SIGNIFICANT CHANGES SINCE INITIAL EVALUATION. Plan Plan: RESUME PT FOR TRIAL OF POSTURE CORRECTION/STRENGTHEING. CERVICAL STM, US, AND CP/MH. CERVICAL ROM AND ISOMETRICS. WRITTEN HEP INSTRUCTION. TARA UE ROM, STRETCHING AND STRENGTHEING. Goals Goal 1:: DECREASE C/O NECK AND TARA UE SX'S Goal Time Frame: 4-6 Weeks Goal Progress: Not Progressing Goal 2:: IMPROVE SITTING, REACHING, HEAD TURNING, LIFTING, ADL AND SLEEP FUNCTION Goal Time Frame: 4-6 Weeks Goal Progress: Not Progressing Goal 3:: INSTRUCT IN PROPHYLAXIS. Goal Time Frame: 4-6 Weeks Goal Progress: Not Progressing Anticipated Interventions Patient/Client Instruction: Educate patient on: Condition, Plan of Care, Risk Factors, Benefits of Fitness Program For the Purpose of:: To improve self management Therapeutic Exercise to Include: Strength training, Body mechanics, Postural training, Flexibilty training, Active ROM, Scapular Strength/Stabilization For the Purpose of:: To decrease pain, To increase ROM, To improve muscle performance and motor function, To improve ability to perform ADL's, To increase flexibility/ROM Manual Therapy Techniques to Include: Soft tissue mobilization For the Purpose of:: To decrease pain, To increase ROM TENS: Yes Cryotherapy (ice pack, ice massage): Yes Thermo therapy (hot pack): Yes Ultrasound (thermal/non thermal): Yes For the Purpose of:: To decrease pain, To decrease swelling/inflammation, To increase ROM Please do not hesitate to contact me at [phone] by phone or if you have questions or concerns regarding this new plan of care! Sincerely, Aminah Barnes <Electronically signed by Aminah Barnes PT, Cert. MDT> 09/07/17 1401 CC: Alexandra Catalan DO STEPHANIA Signed For Medicare only, by signing this I certify the plan of care. Physicians Signature Date CERV SPINE 2 OR 3 Observed: 08/22/2017 Status: F Source: [place] VIEWS 6:43 PM [facility] REPOSITORY [facility] Imaging Services [address] [place] [address] Cerv Spine 2 or 3 Views MR#: [id number] Acct: [id number] Name: AGUSTINA KAYE Rep #: [id number] : 1970 F 47 From: Maria C Leigh MD PCP: Alexandra Catalan DO Status: REG CLI Study: Cerv Spine 2 or 3 Views Date of Exam: 08/22/17 Exam# [id number] Ordering Dr: Alexandra Rueda STUDY: X-RAY - CERVICAL SPINE REASON FOR EXAM: Female, 47 years old. Neck pain, no known injury TECHNIQUE: 3 view(s) of the cervical spine were obtained. COMPARISON: None FINDINGS: Normal anterior atlantoaxial articulation. Normal odontoid process. Normal cervical lordosis. Normal vertebral bodies and endplates. Normal disc space heights. The soft tissue structures are unremarkable. Patient is edentulous. RAD/Cerv Spine 2 or 3 Views IMPRESSION: Normal x-ray examination of the visualized cervical spine. Electronically Signed: Maria C Leigh MD at 4:39 EDT , Service support , CC: Alexandra Catalan DO Senior Tax Analyst: Signed Observed: 08/11/2017 Status: F Source: [place] CULTURE, URINE 5:15 PM [facility] REPOSITORY Urine Culture Below infection level. ORGANISM 1: Mixed Gram Positive Organisms Jackson Count 1000-10,000 Performed By: #### M100.0650 #### [facility] [address] [place], [address] Observed: 07/28/2017 Status: F Source: [place] CULTURE, URINE 2:12 PM [facility] REPOSITORY Urine Culture ORGANISM 1: Escherichia coli Jackson Count 80,000-100,000 Escherichia coli: REACTION Amoxacillin/Clavulanic Acid $ 4 S Ampicillin $ 4 S Ampicillin/Sulbactam $ 4 S Cefazolin $ <=4 S Cefepime $ <=1 S Ceftriaxone $ <=1 S Ciprofloxacin $ >=4 R ESBL - Ertapenim $$$ <=0.5 S Gentamicin $ <=1 S Imipenem *NF <=0.25 S Levofloxacin $ >=8 R Nitrofurantoin $ <=16 S Piperacillin/Tazobactam $$ <=4 S Tobramycin $ <=1 S Trimethoprim/Sulfametho $ >=320 R (NF) indicates non-formulary drug at [facility]. Approval by Infectious Disease Specialist required before non-formulary drugs may be ordered and/or dispensed. Performed By: #### M100.0650 #### [facility] [address] [place], [address] ELECTROENCEPHALOGRAM Observed: 06/29/2017 Status: F Source: [place] 2:49 PM [facility] REPOSITORY [facility] Pulmonary Services/Neurology [address] [place] [address] MR#: [id number] Acct: [id number] Name: AGUSTINA KAYE Rep #: [id number] : 1970 47 From: Oly hSook MD Referring Dr: Alexandra Catalan DO Status: REG CLI Ordering Dr: Date: Location: PSN Sex: F C - Electroencephalogram Date of service: 06/17/17 History EEG is being done in this 47 yr F to rule out seizures EEG Description: This is an 18 channel EEG with 10-20 lead placement system. Bipolar montages, Referential and Circumferential montages were reviewed. Photic stimulation and Hyperventilation were performed. The posterior dominant background rhythm is 6-7 HZ synchronous, symmetric, reacting to eye opening and closing. Photo stimulation did not elicit any driving response or abnormal photoparoxysmal response, Hyperventilation did not elicit any abnormal photoparoxysmal response. Sleep was not identified. There was no epileptiform discharges or electrographic seizures noted during this recording. The background rhythm showed generalized theta frequency EEG Interpretation This is an abnormal EEG due to the presence of moderate generalized slowing. This can be seen in generalized cerebral dysfunction like metabolic/toxic encephalopathy. Clinical correlation is advised. Please note, per [facility] patient is on Tramadol and should be be advised to stop tramadol which has the potential to lower seizure threshold. Will defer to the primary care physician or the EEG ordering physician to inform the patient about the same. There is no epileptiform discharges or electrographic seizures noted during the record. 06/29/17 1449 <Electronically signed by Oly Shook MD> Date Oly Shook MD CC: Carla Shook MD; Alexadnra Catalan DO Date Dictated: 06/27/17 1401 Date Transcribed: 06/27/171400 Senior Tax Analyst: TRAMAINE Signed INITAL EVALUATION (1) Observed: 06/28/2017 Status: F Source: [place] - PT 4:27 PM [facility] REPOSITORY [facility] [address] [place] [address]. [address] [place], [place] [address] Fax REHABILITATION SERVICES INITIAL EVALUATION MR#: [id number] Acct: [id number] Name: AGUSTINA KAYE Rep #: [id number] : 1970 47 From: Bear Swenson PT, ATC Referring DrJuli: Alexandra Catalan DO Status: REG RCR Insurance: [facility] SELF PAY INSURANCE Patient's Visit Information AGUSTINA KAYE is a 47 year old F referred to Physical Therapy by Alexandra Catalan DO DR.LMALYS with a diagnosis of WC assessment. Date of Evaluation: 06/28/17 Physical Therapist: Bear Swenson, PT, - Visit Plan Plan: Discharge pt at this time. I would recommend a wheelchair for community ambulation for this pt as she is unsteady while ambulating and has a low tolerance for ambulation. - Subjective Subjective: Pt reports she was Dx'd with DMII 8 years ago. Pt reports that with the DM, she has lost all sensation in her feet which makes it hard to walk without falling. Pt reports she also gets low BP at times which results in her having diff with walking as well. Pt reports she has had 2 recent falls lately which has given her LBP. Pt reports she has stairs at home, and cant negotiate them without help from someone else. Pt reports her legs give out on her when she has been sitting for a while and attempts to stand up. 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 Pt is unable to go shopping at this time without a riding cart secondary to intolerance with gait. Pt reports her feet, ankles, and back of her legs hurt from neuropathy. Pt uses a walker at home. - Pain B legs Pain Intensity (Out of 10): 8 - Objective Neuro: L2 and L3 dermatones are WNL to light touch. All other LE dermatones are numb. B patellar reflex= 1/3. MMT: R LE 4+/5 while L LE 4-/5 throughout. Gait: Pt is able to ambulate with WW 60 feet until having to sit down wecondary to neuropathy pain. Pt is very unsteady and uses slow cadance with her gait. Balance: Pt is able to DLS with EO for 30 sec without UE support. Pt is unable to DLS with EC or SLS at all. - Rehabilitation Potential Physical Therapy Diagnosis: Pt has B LE weakness, decreased lyly for ambulation, and unsteady gait secondary to B LE neuropathy Rehabilitation Potential: Excellent - Anticipated Interventions Patient/Client Instruction: Educate patient on: Condition, Plan of Care For the Purpose of:: To improve self management Thank you for the opportunity to evaluate your patient. For Medicare and Medicare HMO plans, please review the plan of care and approve it. It will need to be FAXED BACK to us at [phone] for Medicare purposes. Please let me know if there are questions or concerns regarding this plan of care. Physician Signature: Date: <Electronically signed by Bear Swenson PT, ATC> 06/28/17 1627 CC: Alexandra Catalan [facility] Signed For Medicare only, by signing this I certify the plan of care. Physicians Signature Date ALLERGIES ALLERGIES DATE TYPE / CODE NAME / CODE REACTION SEVERITY SOURCE 06/05/2018 Drug Sulfa Hives Unknown [facility] Repository CT) [id number](RX NORM) 07/29/2005 Drug SULFA Mental [facility] Class/501446 (SULFONAMIDE Other [place] 003(SNOMED ANTIBIOTICS) Repository CT) [id number] SULFA [facility] (SNOMED CT) [facility] Repository ENCOUNTERS ENCOUNTERS ADMIT/DISCHARGE ACCOUNT NUMBER ADMITTING ENCOUNTER LOCATION SOURCE CLASS 06/06/2018 [id number] [facility], Inpatient [facility] Encounter Clinic Other [place] Repository 06/06/2018 [id number] [facility], Inpatient [place] [facility] Encounter [facility] MEDICAL Repository CENTERBuildi nRoom: 6412Bed: 06/05/2018/06/06/19 [id number] [place], Inpatient [place] [address] Encounter [facility] ding:ICURoom Repository : [id number]: 1 06/05/2018 [id number] [facility] BMSBuilding: [place] F BMS.[facility] Repository 06/05/2018 [id number] [facility] BMSBuilding: [place] [address] F BMS.CF.[facility] Repository 06/05/2018 [id number] [facility] BMSBuilding: [place] David F BMS.[facility] Repository 06/05/2018 [id number] [facility] BMSBuilding: [place] David F BMS.CF.[facility] Repository 03/21/2018/03/22/20 [id number] Emergency [place] ding:ED Repository 02/21/2018 [id number] Ambulatory [facility] ding:LAB.FUT Repository URE 02/20/2018 [id number] Ambulatory [facility] ding:MRI Repository 02/06/2018 [id number] Ambulatory [facility] ding:MRI Repository 11/15/2017 [id number] Ambulatory [facility] ding:LAB.FUT Repository URE 10/06/2017 [id number] Ambulatory [facility] ding:MRI Repository 09/16/2017/09/17/19 [id number] Ambulatory [place] ding:PT Repository 08/22/2017 [id number] Ambulatory [facility] ding:RAD Repository 08/12/2017 [id number] Ambulatory [facility] ding:BFHLAB Repository 07/28/2017 [id number] Ambulatory [facility] ding:BFHLAB Repository 06/28/2017/06/28/19 [id number] Ambulatory [address] ding:PT Repository 06/26/2017 [id number] Ambulatory [facility] ding:WC Repository 06/17/2017 [id number] [facility] ding:PSN Repository PAYERS PAYERS ENCOUNTER GUARANTOR PAYER SUBSCRIBER SOURCE 06/06/2018 AGUSTINA Granado Primary AGUSTINA D [facility] ABRANTESDOB: Insurance:CARESOURCE ABRANTESDOB: Health System MEDICAIDPolicy [id number] [facility] RDAPT Number: [address], [place] [id number] [address]Fxa: [phone]) Date: () 06/05/2018 AGUSTINA A Primary AGUSTINA A [place] [id number] Insurance:[facility]: [facility] DRAPT oly Number: [id number] [facility] [place], [place] [id number] Repository [address]Ork: [phone]) Date:2018-06-05 O [phone] (HP) [address]ATTN: [place] [address]US: 06/05/2018 Secondary NOT GIVENUNK [place] Insurance:SELF PAY [facility] Number: Effective Repository Date:2018-06-05 06/05/2018 AGUSTINA A Primary AGUSTINA A [place] [id number] Insurance:CARESOURCEP ABRANTESDOB: [facility] Number: [id number] [id number] Repository [address]Ial: [phone]) Date:2018-06-05 O [phone] (HP) [address]ATTN: [place] [address]PM: 06/05/2018 Secondary NOT GIVENUNK [place] Insurance:SELF PAY [facility] Number: Effective Repository Date:2018-06-05 06/05/2018 AGUSTINA A Primary AGUSTINA A [place] [id number] Insurance:CARESOURCEP ABRANTESDOB: [facility] Number: [id number] [id number] Repository [address]Jkt: ([phone]) Date:2018-06-05 O [phone] (HP) [address]ATTN: [place] [address]AG: 06/05/2018 Secondary NOT GIVENUNK [place] Insurance:SELF PAY [facility] Number: Effective Repository Date:2018-06-05 06/05/2018 AGUSTINA A Primary AGUSTINA A [place] [id number] Insurance:CARESOURCEP ABRANTESDOB: [facility] Number: [id number] [id number] Repository 39147Wxa: (330) Date:2018-06-05P O [phone] (HP) [address]ATTN: [place] [address]QP: 06/05/2018 Secondary NOT GIVENUNK [place] Insurance:SELF PAY [facility] Number: Effective Repository Date:2018-06-05 06/05/2018 AGUSTINA A Primary AGUSTINA A [place] [id number] Insurance:CARESOURCEP ABRANTESDOB: [facility] Number: [id number] [id number] Repository 937[address]Zyr: (330) Date:2018-06-05P O [phone] () [address] [address]LX: 06/05/2018 Secondary NOT GIVENUNK [place] Insurance:SELF PAY [facility] Number: Effective Repository Date:2018-06-05 03/21/2018 AGUSTINA A Primary AGUSTINA A [place] [id number] Insurance:CARESOURCEP ABRANTESDOB: [facility] Number: [id number] [id number] Repository [address]Zuc: (330) Date:2018-03-21P O [phone] () [address]ATTN: [place] [address]XD: 03/21/2018 Secondary NOT GIVENUNK [place] Insurance:SELF PAY [facility] Number: Effective Repository Date:2018-03-21 02/21/2018 AGUSTINA A Primary AGUSTINA A [place] [id number] Insurance:CARESOURCEP ABRANTESDOB: [facility] Number: [id number] [id number] Repository [address]Wcb: (330) Date:2018-02-17P O [phone] () [address]N: [place] [address]DO: 02/21/2018 Secondary NOT GIVENUNK [place] Insurance:SELF PAY [facility] Number: Effective Repository Date:2018-02-17 02/20/2018 AGUSTINA A Primary AGUSTINA A [place] [id number] Insurance:CARESOURCEP ABRANTESDOB: [facility] Number: [id number] [id number] Repository [address]Hag: (330) Date:2018-02-15P O [phone] () [address]ATTN: [place] [address]NZ: 02/20/2018 Secondary NOT GIVENUNK [place] Insurance:SELF PAY [facility] Number: Effective Repository Date:2018-02-15 02/06/2018 AGUSTINA A Primary AGUSTINA A [place] [id number] Insurance:CARESOURCEP ABRANTESDOB: [facility] Number: [id number] [id number] Repository [address]Egh: (330) Date:2018-01-31P O [phone] () [address]ATTN: [place] [address]YQ: 02/06/2018 Secondary NOT GIVENUNK [place] Insurance:SELF PAY [facility] Number: Effective Repository Date:2018-01-31 11/15/2017 Agustina A Primary Agustina A [place] [id number] Insurance:CARESOURCEP [facility] Number: [id number] [id number] Repository [address]Ycv: (330) Date:2017-11-15P O [phone] () [address]ATTN: [place] [address]PV: 11/15/2017 Secondary NOT GIVENUNK [place] Insurance:SELF PAY [facility] Number: Effective Repository Date:2017-11-15 10/06/2017 Agustina A Primary Agustina A [place] [id number] Insurance:CARESOURCEP AbrantesDOB: [facility] Number: [id number] [id number] Repository [address]101[address]Xes: (330) Date:2017-09-30P O [phone] (HP) [address]ATTN: [place] [address]CF: 10/06/2017 Secondary NOT GIVENUNK [place] Insurance:SELF PAY [facility] Number: Effective Repository Date:2017-09-30 09/16/2017 Agustina A Primary Agustina A [place] [id number] Insurance:CARESOURCEP AbrantesDOB: [facility] Number: [id number] [id number] Repository [address]Hli: (330) Date:2014-10-14P O [phone] (HP) [address]ATTN: [place] [address]EF: 09/16/2017 Secondary NOT GIVENUNK [place] Insurance:SELF PAY [facility] Number: Effective Repository Date:2017-05-24 08/22/2017 Agustina A Primary Agustina A [place] [id number] Insurance:CARESOURCEP AbrantesDOB: [facility] Number: [id number] [id number] Repository 10[address]Otq: (330) Date:2017-08-22P O [phone] (HP) [address]ATTN: [place] [address]EN: 08/22/2017 Secondary NOT GIVENUNK [place] Insurance:SELF PAY [facility] Number: Effective Repository Date:2017-08-22 08/12/2017 Agustina A Primary Agustina A [place] [id number] Insurance:CARESOURCEP AbrantesDOB: [facility] Number: [id number] [id number] Repository [address]Djd: (330) Date:2017-08-12P O [phone] (HP) [address]ATTN: [place] [address]WO: 08/12/2017 Secondary NOT GIVENUNK [place] Insurance:SELF PAY [facility] Number: Effective Repository Date:2017-08-12 07/28/2017 Agustina A Primary Agustina A [place] [id number] Insurance:CARESOURCEP AbrantesDOB: [facility] Number: [id number] [id number] Repository [address]Eww: (330) Date:2017-07-28P O [phone] () [address]ATTN: [place] [address]NL: 07/28/2017 Secondary NOT GIVENUNK [place] Insurance:SELF PAY [facility] Number: Effective Repository Date:2017-07-28 06/28/2017 Agustina A Primary Agustina A [place] [id number] Insurance:CARESOURCEP AbrantesDOB: [facility] Number: [id number] [id number] Repository 54851Zhy: (330) Date:2014-10-14P O [phone] () [address]ATTN: [place] [address]UH: 06/28/2017 Secondary NOT GIVENUNK [place] Insurance:SELF PAY [facility] Number: Effective Repository Date:2017 06/26/2017 Agustina A Primary Agustina A [place] [id number] Insurance:CARESOURCEP AbrantesDOB: [facility] Number: [id number] [id number] Repository [address]Jbl: (330) Date:2017-06-10P O [phone] () [address]ATTN: [place] [address]ED: 06/26/2017 Secondary NOT GIVENUNK [place] Insurance:SELF PAY [facility] Number: Effective Repository Date:2017-06-16 06/17/2017 Agustina A Primary Agustina A [place] [id number] Insurance:CARESOURCEP AbrantesDOB: [facility] Number: [id number] [id number] Repository [address]3893Wrk: (330) Date:2017-05-26P O [phone] () [address]ATTN: [place] [address]LD: 06/17/2017 Secondary NOT GIVENUNK [place] [facility]LF [facility]Y [facility] [address] [facility] Number: Effective Repository Date:2017-05-26
== END 2018-06-06 17:45 | disposition short-term general hospital (02) | DRG 720 ==
LOC: ED 10:17 → ICU 06-06 06:43
PROVIDERS: Internal Medicine Critical Care Medicine; Admitting Provider Family Medicine; Emergency Provider Emergency Medicine; Family Provider Family Medicine; PCP Family Medicine; Visit Provider Family Medicine
DX: A41.9 Sepsis, unspecified organism (principal); J96.02 Acute respiratory failure with hypercapnia; J96.01 Acute respiratory failure with hypoxia; E11.42 Type 2 diabetes mellitus with diabetic polyneuropathy; N17.9 Acute kidney failure, unspecified; E11.65 Type 2 diabetes mellitus with hyperglycemia; J69.0 Pneumonitis due to inhalation of food and vomit; J18.9 Pneumonia, unspecified organism; N39.0 Urinary tract infection, site not specified; G92 Toxic encephalopathy; F20.9 Schizophrenia, unspecified; Z23 Encounter for immunization; F17.210 Nicotine dependence, cigarettes, uncomplicated; F32.9 Major depressive disorder, single episode, unspecified; F41.9 Anxiety disorder, unspecified; L98.499 Non-pressure chronic ulcer of skin of other sites with unspecified severity; Z79.4 Long term (current) use of insulin
CPT/HCPCS: 31500; 31720; 36600; 70450; 71045; 80048; 80053; 80061; 80156; 80307; 80320; 81001; 82009; 82550; 82803; 82962; 83036; 83605; 84478; 84484; 85025; 87040; 87070; 87077; 87086; 87088; 87186; 87205; 94002; 94003; 94660; 95831; 99251; 99285; 99406; J7030; P9612; 90686; A4216; G0463; G0480; J0295

== ENCOUNTER 2018-08-12 17:52 | Emergency (ER) | payer MEDICAID, SELFPAY ==
[2018-06-05 12:37] VITALS: BMI 27.8
[2018-08-12 17:52] VITALS: BP 112/70; PULSE 106; RESP 18; TEMP 36.3; O2SAT 92; BMI 28.3
--- NOTE | 2018-08-12 18:00 | RAD_ITS ---
STUDY: X-RAY CHEST REASON FOR EXAM: Female, 48 years old. Fall TECHNIQUE: Frontal and lateral views COMPARISON: June 05, 2018 FINDINGS: The lungs are expanded. Bibasilar atelectasis. Normal size heart. Normal mediastinum and rachael. Normal visualized pulmonary arteries. Normal visualized aortic arch and descending thoracic aorta. Mild scoliosis of the thoracic spine. Normal visualized ribs, clavicles, and shoulders. There is no demonstrated abnormality of the visualized soft tissue structures of the upper abdomen. RAD/Chest PA and Lateral IMPRESSION: Bibasilar atelectasis. Electronically Signed: Juaquin Isabel DO at 18:43 EDT Tel [phone], Service support ,
== END 2018-08-12 19:55 ==
LOC: ED 20:09
PROVIDERS: Emergency Provider Emergency Medicine; Family Provider Family Medicine; PCP Student in an Organized Health Care Education/Training Program
DX: J98.11 Atelectasis (principal); Z91.81 History of falling
CPT/HCPCS: 71046

== ENCOUNTER 2018-09-06 14:32 | Outpatient (RCR) | payer MEDICAID, SELFPAY ==
--- NOTE | 2018-09-14 11:38 | HP.FCE ---
HP OT Functional Capacity Eval - Task Lift Floor (Occasional 1-33% of Day): 6lb Floor (Frequent 34-66% of Day): Negligible Floor (Constant 67-100% of Day): Negligible Floor PDL: Sedentary Knee (Occasional 1-33% of Day): 15lb Knee (Frequent 34-66% of Day): 8lb Knee (Constant 67-100% of Day): Negligible Knee PDL: Sedentary-Light Waist (Occasional 1-33% of Day): 15lb Waist (Frequent 34-66% of Day): 8lb Waist (Constant 67-100% of Day): Negligible Waist PDL: Sedentary-Light Shoulder (Occasional 1-33% of Day): 15lb Shoulder (Frequent 34-66% of Day): 8lb Shoulder (Constant 67-100% of Day): Negligible Shoulder PDL: Sedentary-Light Overhead (Occasional 1-33% of Day): 6lb Overhead (Frequent 34-66% of Day): Negligible Overhead (Constant 67-100% of Day): Negligible Overhead PDL: Sedentary - Work Activity/Posture Bending: Occasional Ability (1-33% of day) Squatting: Occasional Ability (1-33% of day) Kneeling: No Ablility (0% of day) Reaching out: Occasional Ability (1-33% of day) Reaching up: Occasional Ability (1-33% of day) Sitting: Frequent Ability (34-66% of day) Walking: Occasional Ability (1-33% of day) Standing: Occasional Ability (1-33% of day) - Reference Duration Sedentary Sedentary Light Light Light Medium Medium Medium Heavy Very Heavy Heavy Occasional (0-33% of day) Frequent (34-66% of day) Constant (67-100% of day) 10 # Negligible Negligible 15 # 8 # Negligible 20 # 10# Negli. 35 # 18 # 7 # 50 # 25 # 10 # 75 # 100 # >100 # 38 # 50 # >50 # 15 # 20 # >20 # - Patient Information Height: 5 ft 5.5 in Weight:: 78.018 kg Hand Dominance: Right handed - Medical History Medical History Including Restrictions: Pt did not come with list of PMHx. Pt reports the follow PMHx; DM I, Fibromyalgia, Neuropathy, Neck Injury 2018, Blind L eye, anxiety. Pt states going to be having sx for bulged disc in neck. Pt states gets injections in cervical spine until date set for sx. - Diagnoses Diagnoses: Pt reports the follow PMHx; DM I, Fibromyalgia, Neuropathy, Neck Injury 2018, Blind L eye, anxiety. - Symptoms Symptoms: Pt reports the following symptoms: burning pain neck down to L arm. Tingling entire body twitching entire body. - Pain Pain: Pt reports bilateral thigh pain /, lower back pain /. 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 - ADLS ADLS: Lives w/ diego' in one level apartment w/ 7 carpeted steps to enter 1 handrail. AMB w/ WW. Pt states requires assist with BADLs dressing, bathing, getting in/out of chairs and bed. Diego' completes all IADL tasks. Two cats leaves food on table because she can't bend down well and has had frequent falls. Tub/shower, shower chair, grab bar, diego stays in bathroom for SUP and assist as needed. [facility]. Std toilet seats. Diego gets all the groceries. Diego' does vaccumming. Hobbies; horseback riding (haven't done for 6 months per pt). - Physical Examination ROM: R UE WFL, L UE limited internal rotation of shoulder secondary to pain of L shoulder. BLE WFL Strength: R UE 4-/5, L UE 3+/5. R LE 4-/5, L LE 3+/5 Right Digital Content Producer Strength Average: 50.33 Left Digital Content Producer Strength Average: 30.00 Right Lateral Pinch Average: 4.33 Left Lateral Pinch Average: 2.33 Right Tripod Pinch Average: 3.66 Left Tripod Pinch Average: 1.66 Sensation: Tingling all over body, numbness in bilateral legs and occassionally R arm. Monofilament test= R hand 2.83 (normal range). L hand 3.61 Fine Motor: Pt states difficulty with buttons, snaps, zippers. Nine hole peg test Right hand (dominent) 41.4 seconds, L hand 57.5 seconds. Balance: Pt states has had falls in past 3 months, just the other night fell in bedroom when getting up to go to bathroom. Tripped over own feet in kitchen, fell on side going to bathroom did not hurt self. - Non Material Handling Activities Bending: Pt declined to attempt bending tasks while standing secondary to pain in back and decreased balance and frequent falls, pt able to bend down and touch floor from seated position. Squatting: Squating with seat behind her for safety, 1x, 4x slow moving with chair behind her and holding onto table with L hand for support. Pt declined to complete any more stating she can't. Kneeling: Pt declined to kneel, stating that's why she puts the cat food on top of the table because she can't kneel. Reaching out/up: Reaching up 1x, 10x with 8/10 L stabbing pain in elbow. Reaching out 1x L/R, 7x L/R increased light tremors noted bilateral arms Walking: Completed 2 min 24 seconds of 15 min walk test then required seated rest break while using WW for walk test. When pt arrived for FCE she was very unsteady stating to therapist that she usually uses a walker but didn't bring it for the test today. Pt able to walk from waiting room to OT department with hand held assist from therapist and use of gait belt for safety. Therapist provided WW for all testing, walking and standing tasks for pt's increased support and safety. Standing: Pt able to stand for short amounts of time only using WW for balance and support. Sitting: Pt able to sit for 32 minutes beginning of evaluation without grimicing or s/s of discomfort Climbing Stairs: Pt able to climb flight of steps up/down using bilateral handrails with reciprocal movement of legs. No loss of balance. - Dynamic Occasional Lifting Capacity Floor Lift: 6lb max Knee Lift: 15lb max Waist Lift: 15lb max Shoulder Lift: 15lb max Overhead Lift: 6lb max Carrying: declined to particpate with carrying weighted box. Comments: Pt demo increased tremors bilateral UE after lifting tasks. Pain in upper back 9/10 after completing lifting tasks.
== END 2018-09-06 19:00 | disposition home or self-care (01) ==
LOC: OT 14:32
PROVIDERS: Family Provider Family Medicine; PCP Student in an Organized Health Care Education/Training Program; Referring Provider Nurse Practitioner Primary Care; Visit Provider Nurse Practitioner Primary Care
DX: Z02.71 Encounter for disability determination (principal)
CPT/HCPCS: 97165; 97167

== ENCOUNTER 2019-09-01 01:53 | Inpatient (IN) | payer MEDICAID, SELFPAY ==
[2019-09-01] VITALS (10 sets, daily range): BP systolic 133–163; BP diastolic 82–99; PULSE 89–114; RESP 15–20; TEMP 36.7–36.9; O2SAT 81–95; BMI 32.5; BMI 31.1
--- NOTE | 2019-09-01 02:10 | EKG12_ITS ---
Test Reason : ALT LOC Blood Pressure : / mmHG Vent. Rate : 105 BPM Atrial Rate : 105 BPM P-R Int : 148 ms QRS Dur : 092 ms QT Int : 370 ms P-R-T Axes : 069 116 062 degrees QTc Int : 489 ms Sinus tachycardia Biatrial enlargement Right axis deviation Pulmonary disease pattern Incomplete right bundle branch block Abnormal ECG Confirmed by LUKAS LYNN, TARIK ([id number]), news video editor JAK LOFTON ([id number]) on 09/04/2019 9:01:12 AM Referred By: KSENIA Confirmed By:TARIK GAYTAN MD
--- NOTE | 2019-09-01 02:10 | CT_ITS ---
STUDY: CT BRAIN WITHOUT CONTRAST REASON FOR EXAM: Female, 49 years old. WEAKNESS BILAT, ALTERED LOC, LAST KNOWN NORMAL 8 PM RADIATION DOSAGE (If Supplied By Facility): CTDIvol = ( 44.99 ) mGy, DLP = ( 762.36 ) mGycm TECHNIQUE: Transaxial CT imaging of the brain was performed without administration of intravenous contrast material. Individualized dose optimization techniques were used for this CT. COMPARISON: 06/05/2018. FINDINGS: Normal soft tissue structures. Normal calvarium. There is mild fullness of the cortical sulci. There is dilatation of the ventricles , borderline prominent in relation to the degree of sulcal prominence. There are areas of decreased attenuation within the white matter tracts of the supratentorial brain, consistent with microvascular disease changes. Normal basal ganglia and thalami. Normal brainstem. Normal cerebellum. There is no intracranial hemorrhage. There are no findings of an acute ischemic infarction. Normal visualized paranasal sinuses. CT/Brain/Head without Contrast IMPRESSION: Chronic changes as described. No acute intracranial hemorrhage or space lesion. Electronically Signed: Darline Marrero MD at 3:01 EDT , Service support ,
--- NOTE | 2019-09-01 02:10 | RAD_ITS ---
STUDY: X-RAY CHEST REASON FOR EXAM: Female, 49 years old. cough TECHNIQUE: Single AP portable view of the chest. COMPARISON: 08/12/2018. FINDINGS: The lungs are normally expanded with bilateral mid-lower lung field atelectasis, remainder of the lungs are otherwise clear. There is no demonstrated pleural abnormality. There is borderline cardiomegaly. Normal mediastinum and rachael. Normal visualized pulmonary arteries. There is atherosclerotic calcification of the aortic arch with tortuosity. Normal visualized thoracic spine. Normal visualized ribs, clavicles, and shoulders. There is no demonstrated abnormality of the visualized soft tissue structures of the upper abdomen. RAD/Chest 1 View (Portable) IMPRESSION: Bilateral atelectasis as described. Overall stable study in the interval. Electronically Signed: Darline Marrero MD at 3:07 EDT , Service support ,
[2019-09-01 02:25] LABS: Absolute Neutrophil Count 11.2 X10^3/uL (2.0-7.7); Basophil# 0.11 X10^3/uL; Basophil% 0.7 % (0-1); Eosinophil# 0.52 X10^3/uL; Eosinophils% 3.5 % (0-5); Hematocrit 49.2 % (37-47); Hemoglobin 13.9 g/dL (12.0-15.0); Lymphocyte % 10.9 % (19-41); Mean Corp Hgb Conc 28.3 g/dL (32-36); Mean Corpuscular Hgb 24.3 pg (27.0-32.0); Mean Corpuscular Volume 85.9 fL (81-99); Monocyte# 1.14 X10^3/uL; Monocyte% 7.8 % (0-10); NRBC Flagged by Analyzer 0.2 % (0-5); Neutrophil # 11.16 X10^3/uL (2.7-7.7); Neutrophil % 76.1 % (47-70); POSITIVE MORPHOLOGY YES; Platelet Count 188 K/mm3 (150-450); RBC Distribution Width CV 22.5 % (11.6-14.6); RBC Distribution Width SD 67.3 fl (35.1-43.9); Red Blood Count 5.73 M/mm3 (4.2-5.4); White Blood Count 14.7 K/mm3 (4.4-11.0)
[2019-09-01 02:27] LABS: Bacteria 0 SEEN /hpf (None Seen); Mucous, Urine 0 SEEN /hpf (<or=2+)
[2019-09-01 02:32] LABS: Differential Indicated SCAN CRITERIA MET
[2019-09-01 02:35] LABS: Color, Urine Yellow (Yellow); Glucose, Dipstick 1000 mg/dl (Normal); Ketone-Dipstick Negative (Negative); Leukocyte Esterase-Dipstick 500 /ul (Negative); Nitrite-Dipstick Negative (Negative); Occult Blood-Urine 50 /ul (Negative); Protein-Dipstick 30 mg/dl (Negative); Specific Gravity, Urine 1.015 (1.002-1.030); Urine Bilirubin Dipstick Negative (Negative); Urine Clarity Sl. Cloudy (Clear); Urine Urobilinogen Normal (Normal)
--- NOTE | 2019-09-01 02:38 | ED.VIS.GEN ---
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 See below. Quality: Unresponsive Location: Generally Current Severity: gone Maximum Severity: Severe Worsened by: Nothing in particular Relieved by: Nothing in particular Associated Symptoms: currently feels confused, paresthesias BLE, malaise Narrative: Patient does not know what happened. She states she went to bed. Her is a very heavy sleeper. At one point he got up and tried to wake her up and could not so he called 911. Upon arrival, EMS states that the patient was awake and alert and disoriented. They obtained a blood sugar that was in the 380s. She states she did not eat anything tonight but despite that, took her short and long-acting insulins anyway. When asked why, she does not know. She states she is on insulin only for her diabetes and no pills. Patient states that she has had a cough recently. She has not traveled out of the area, has basically been staying at home during the national coronavirus emergency/pandemic, and has been in contact with no one that she knows of that has been sick. She states that she feels disoriented/confused and has some discomfort in her low back that she has chronically. She has no other focal complaints right now. She denies using any drugs or alcohol tonight. She denies having any unilateral neurologic symptoms. She denies any headache, fall, injury. - Past Medical History (1) Anxiety Status: Chronic (2) Depression Status: Chronic (3) Peripheral neuropathy Status: Chronic (4) Type II diabetes mellitus Status: Chronic Past Medical History - Allergies and Home Meds Allergies/Adverse Reactions: Allergies Sulfa (Sulfonamide Antibiotics) Allergy (Verified 09/01/19 02:05) Hives Primary Care Physician: Alejandro Nunez DO [Primary Care Provider] - Surgical History: cholecystectomy, - - Tubal ligation. Lives: Spouse/ Significant Other Smoking Status: Current every day smoker - Family History Maternal Family History: Reports: No pertinent history Paternal Family History: Reports: No pertinent history Review of Systems General: Reports: Malaise. Denies: Chills, Fever, Sweats Eyes: Denies: Visual changes - bilaterally, Diplopia ENT: Denies: Bilateral ear pain, Rhinorrhea, Sore throat Cardiovascular: Denies: Chest pain, Palpitations Respiratory: Reports: Cough. Denies: Dyspnea, Sputum, Dyspnea on exertion Gastrointestinal: Denies: Abdominal pain, Nausea, Vomiting, Diarrhea, Melena, Hematochezia Genitourinary: Denies: Dysuria, Hematuria, Frequency Musculoskeletal: Reports: Back pain - low, chronic, unchanged. Denies: Neck pain, Swelling, Extremity Pain Skin: Denies: Rash, Wounds Neurological: Reports: Parasthesia. Denies: Headache, Weakness Physical Exam Vital Signs/Narrative: Vital Signs Temp Pulse Resp BP Pulse Ox 09/01/19 02:23 95 09/01/19 01:59 161/94 H 95 09/01/19 01:54 98.5 F 114 H 16 81 NIH Stroke Scale/Score (NIHSS) from [place] on 09/01/2019 All calculations should be rechecked by clinician prior to use RESULT SUMMARY: 2 points NIH Stroke Scale INPUTS: 1A: Level of consciousness ?> 0 = Alert; keenly responsive 1B: Ask month and age ?> 1 = 1 question right 1C: 'Blink eyes' & 'squeeze hands' ?> 0 = Performs both tasks 2: Horizontal extraocular movements ?> 0 = Normal 3: Visual naylor ?> 0 = No visual loss 4: Facial palsy ?> 0 = Normal symmetry 5A: Left arm motor drift ?> 0 = No drift for 10 seconds 5B: Right arm motor drift ?> 0 = No drift for 10 seconds 6A: Left leg motor drift ?> 0 = No drift for 5 seconds 6B: Right leg motor drift ?> 0 = No drift for 5 seconds 7: Limb Ataxia ?> 0 = No ataxia 8: Sensation ?> 1 = Mild-moderate loss: less sharp/more dull 9: Language/aphasia ?> 0 = Normal; no aphasia 10: Dysarthria ?> 0 = Normal 11: Extinction/inattention ?> 0 = No abnormality Inital Vital Signs reviewed: Yes General: Well nourished, Well developed, Obese, No Acute Distress Head: Normocephalic, Atraumatic Eyes: Perrl - Limited exam due to cloudy left cornea, which is normal per patient, EOMI ENT: Moist mucous membranes, No rhinorrhea, TM's clear. Negative for: Sinus tenderness Neck: Supple, Nontender, No lymphadenopathy Cardiovascular: Regular rate, Regular rhythm, No murmurs Respiratory: No distress, Chest nontender, Rales - L base, Rhonchi - L base Abdomen: Soft, Nontender, Nondistended, Normal bowel sounds Back: Nontender, Normal Inspection. Negative for: CVA tenderness Extremities: Nontender, No edema Skin: Normal color, No rash, No Trauma Neurological: Alert, Cranial nerves II-XII grossly intact, Normal Strength, Disoriented - Does not remember the month/date but otherwise oriented, including her age, Parasthesia - Diffuse bilateral lower extremities partially, otherwise normal sensation Psychological: Normal affect, Normal Mood Diagnostic/Tx/Re-eval Clinical Impression(s) from Imaging Studies Brain CT 09/01/19 02:10 IMPRESSION: Chronic changes as described. No acute intracranial hemorrhage or space lesion. Electronically Signed: Darline Marrero MD at 3:01 EDT , Service support , Chest X-Ray 09/01/19 02:10 IMPRESSION: Bilateral atelectasis as described. Overall stable study in the interval. Electronically Signed: Darline Marrero MD at 3:07 EDT , Service support , Chest CTA 09/01/19 03:24 IMPRESSION: No pulmonary embolism, aortic aneurysm, or aortic dissection. Bilateral airspace disease greatest within the left lower lobe likely representing pneumonia. There is some atelectasis and some pulmonary edema as well. Individualized dose optimization techniques were used for this CT. at 0437 Reported and signed by: David Carvajal MD Electronically Signed: David Carvajal MD at 4:35 EDT Tel , Service support , Laboratory Results 09/01/19 09/01/19 09/01/19 02:11 02:11 02:11 WBC 14.7 H RBC 5.73 H Hgb 13.9 Hct 49.2 H MCV 85.9 MCH 24.3 L MCHC 28.3 L RDW Std Deviation 67.3 H RDW Coeff of Krista 22.5 H Plt Count 188 MPV TNP Immature Gran % (Auto) 1.000 H Neut % (Auto) 76.1 H Lymph % (Auto) 10.9 L [place] % (Auto) 7.8 Eos % (Auto) 3.5 Baso % (Auto) 0.7 Absolute Neuts (auto) 11.2 H Absolute Lymphs (auto) 1.60 Nucleated RBC % 0.2 Sodium 144 Potassium 5.3 H Chloride 106 Carbon Dioxide 30.0 Anion Gap 8 BUN 22 H Creatinine 1.33 H Estim Creat Clear Calc 46.85 Est GFR (MDRD) Af Amer 54 L Est GFR (MDRD) Non-Af 45 L BUN/Creatinine Ratio 16.5 Glucose 441 H Lactic Acid Calcium 8.7 Troponin I < 0.015 Urine Color Urine Clarity Urine pH Ur Specific [place] Urine Protein Urine Glucose (UA) Urine Ketones Urine Occult Blood Urine Nitrite Urine Bilirubin Urine Urobilinogen Ur Leukocyte Esterase Urine RBC Urine WBC Ur Squamous Epith Cells Urine Bacteria Urine Mucus Urine Yeast Ur Drug Screen Comment Ethyl Alcohol < 3.0 09/01/19 09/01/19 09/01/19 02:11 02:23 02:23 WBC RBC Hgb Hct MCV MCH MCHC RDW Std Deviation RDW Coeff of Krista Plt Count MPV Immature Gran % (Auto) Neut % (Auto) Lymph % (Auto) [place] % (Auto) Eos % (Auto) Baso % (Auto) Absolute Neuts (auto) Absolute Lymphs (auto) Nucleated RBC % Sodium Potassium Chloride Carbon Dioxide Anion Gap BUN Creatinine Estim Creat Clear Calc Est GFR (MDRD) Af Amer Est GFR (MDRD) Non-Af BUN/Creatinine Ratio Glucose Lactic Acid 3.5 H* Calcium Troponin I Urine Color Yellow Urine Clarity Sl. Cloudy Urine pH 6.0 Ur Specific [place] 1.015 Urine Protein 30 H Urine Glucose (UA) 1000 H Urine Ketones Negative Urine Occult Blood 50 H Urine Nitrite Negative Urine Bilirubin Negative Urine Urobilinogen Normal Ur Leukocyte Esterase 500 H Urine RBC 0-5 SEEN Urine WBC 50-100 SEEN Ur Squamous Epith Cells 5-10 SEEN Urine Bacteria 0 SEEN Urine Mucus 0 SEEN Urine Yeast 3+ Ur Drug Screen Comment Ethyl Alcohol - Rhythm Strip Rhythm Strip: Sinus Tach Rate: 105 Ectopy: None - EKG Initial EKG Interpretation: No Acute Injury Pattern, Sinus Tachycardia, - - Biatrial enlargement, right axis deviation, COPD pattern - Medical Decision Making Patient was hypoxic on room air in the low 80s. On nasal cannula she is at 95%. She has a mild resting tachycardia but otherwise her vital signs of remained stable. Her chest x-ray shows no obvious infiltrates. Given her hypoxemia, will send for CT. Her urine appears grossly infected this was sent for culture, blood cultures were sent, her lactate is elevated, she was given a liter fluid bolus, and started on antibiotics Rocephin. Her CT head is unremarkable for any acute disease. The reason for her unresponsiveness is unknown. It is conceivable that she was hypoglycemic after taking her short acting insulin and not eating anything, and had a [place] response, although she does have glycosuria. It is possible that she was transiently hypotensive because of her infection. She has mild hyperkalemia at 5.3, the upper limit of normal is 5.1, she has no EKG changes from this, is a little acidotic because of her elevated lactate, and I expect that IV fluid hydration will help correct her non-anion gap metabolic acidosis and as a result, her potassium should decrease. Therefore do not think she needs other acute treatment for that right now. She is breathing well, is clinically stable, I do not think needs the ICU, but will be admitted to the hospital. CTA resulted showing bilateral infiltrates, patchy, worse on the left. Discussed with hospitalist. Will put her in the coronavirus cohort floor, and ordered test as well as respiratory panel. I added a azithromycin to her regimen of antibiotics given pneumonia on the CT. This certainly could explain her hypoxemia, there is no pulmonary embolus, and her hypoxemia may be directly related to her decreased level of consciousness/unresponsiveness. ED Disposition - Plan for ED Patient: Disposition: Acute Care Hospital [facility] Diagnosis: Sepsis due to urinary tract infection, Severe sepsis, Altered level of consciousness, Hyperkalemia, transcellular shifts, Hyperglycemia due to type 2 diabetes mellitus, Hypoxemia, MICHEEL (acute kidney injury), Bilateral pneumonia Referrals: Alejandro Nunez DO [Primary Care Provider] -
[2019-09-01 02:40] LABS: Alcohol, Blood (Medical)-Serum < 3.0 mg/dL
[2019-09-01 02:44] LABS: Anion Gap 8 (5-15); BUN 22 mg/dL (7-18); BUN/Creat Ratio 16.5 RATIO (10-20); Calcium,Total 8.7 mg/dL (8.5-10.1); Chloride 106 mmol/L (98-107); Creatinine, Serum 1.33 mg/dL (0.55-1.02); EST Glomerular Filtration Rate 45 mL/min (>60); Est Glom Filt Rate - Afr Amer 54 mL/min (>60); Estimated Creatinine Clearance 46.85 ml/min; Glucose 441 mg/dL (74-106); Potassium 5.3 mmol/L (3.5-5.1); Sodium Level 144 mmol/L (136-145)
[2019-09-01] MEDS: 0.9% Normal Saline 1,000 ML 1000 ML IV (02:45)
[2019-09-01 02:51] LABS: Red Blood Cells-Urine 0-5 SEEN /hpf (0-5); White Blood Cells 50-100 SEEN /hpf (0-5); Yeast-Urine 3+ /hpf (None Seen)
[2019-09-01 02:52] LABS: Squamous Epithelial Cells - UA 5-10 SEEN /hpf (5-10)
[2019-09-01 03:09] LABS: Lactic Acid 3.5 mmol/L (0.4-1.9)
--- NOTE | 2019-09-01 03:15 | NURSING ---
courtney from lab called to critical result on the pt of a lactic of 3.5
[2019-09-01] MEDS: Ceftriaxone 1 GM/50 ML BAG IV (03:21)
[2019-09-01 03:23] LABS: Amphetamine Urine VISTA NEGATIVE (<1000 ng/mL); Barbiturate Urine VISTA NEGATIVE (< 200 ng/mL); Benzodiazepine Urine VISTA POSITIVE (< 200 ng/mL); Cocaine Urine VISTA NEGATIVE (< 300 ng/mL); Ecstacy Urine VISTA NEGATIVE (< 500 ng/mL); Methadone Urine VISTA NEGATIVE (< 300 ng/mL); PCP Urine VISTA NEGATIVE (< 25 ng/mL); THC Urine VISTA NEGATIVE (< 50 ng/mL); Vista UDS pH Range 5
--- NOTE | 2019-09-01 03:24 | CT_ITS ---
HISTORY: HYPOXEMIA, COUGH, ALTERED LOC TECHNIQUE: Helically acquired images were obtained of the chest following the intravenous administration of 100 ML of Isovue-370 Iodinated contrast. as per pulmonary angiogram protocol with 2D MIP reconstructions. A radiation dose optimization technique was used for this scan. COMPARISON: Previous CT scan of the chest is from August 01, 2010. Most recent chest x-ray is from about 1 hour earlier FINDINGS: # of images incl. paperwork: [id number] Some basilar airspace disease is present on both lungs. This is greater on the left than the right. Some left upper lobe groundglass opacity is also present extending back posteriorly to the fissure. Minimal diffuse groundglass opacity is present within the right upper lobe. There is minimal septal thickening.. No effusions. Within the thoracic spinethere is a dextroscoliosis to the thoracic spine continues into the cervical spine. Vertebral body height is normal. Facets are well aligned. No rib lesions are perceived. Heart is not enlarged. Thoracic aorta is normal. No aneurysms, stenoses, dissections, nor occlusions. No axillary or mediastinal adenopathy. No pulmonary emboli. The liver is not completely imaged, but there may be at least some mild hepatomegaly CT/CTA Chest W/WO Contrast IMPRESSION: No pulmonary embolism, aortic aneurysm, or aortic dissection. Bilateral airspace disease greatest within the left lower lobe likely representing pneumonia. There is some atelectasis and some pulmonary edema as well. Individualized dose optimization techniques were used for this CT. at 0437 Reported and signed by: David Carvajal MD Electronically Signed: David Carvajal MD at 4:35 EDT Tel , Service support ,
[2019-09-01 03:29] LABS: Platelet Estimate ADEQUATE (ADEQ)
[2019-09-01 03:30] LABS: Anisocytosis 2+; Hypochromasia 1+; Microcytosis RARE; Polychromasia RARE
[2019-09-01 04:11] LABS: Bedside Glucose 376 mg/dL (70-110)
[2019-09-01] MEDS: Insulin Lispro 100 UNIT/ML INSULN.PEN 8 UNIT SC (04:18)
[2019-09-01] MEDS: 0.9% Normal Saline 1,000 ML 999 ML IV (04:21)
--- NOTE | 2019-09-01 04:53 | ED.RN ---
purewick placed in ED
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
[2019-09-01] MEDS: Azithromycin 250 MG Tablet 500 MG PO ×2 (05:16→21:07)
[2019-09-01 06:15] LABS: Absolute Neutrophil Count 9.8 X10^3/uL (2.0-7.7); Basophil# 0.08 X10^3/uL; Basophil% 0.6 % (0-1); Eosinophil# 0.43 X10^3/uL; Hematocrit 45.9 % (37-47); Hemoglobin 12.9 g/dL (12.0-15.0); Lymphocyte % 16.2 % (19-41); Mean Corp Hgb Conc 28.1 g/dL (32-36); Mean Corpuscular Hgb 24.2 pg (27.0-32.0); Monocyte# 1.37 X10^3/uL; Monocyte% 9.7 % (0-10); NRBC Flagged by Analyzer 0.2 % (0-5); Neutrophil % 69.2 % (47-70); POSITIVE MORPHOLOGY YES; Platelet Count 169 K/mm3 (150-450); RBC Distribution Width CV 22.2 % (11.6-14.6); RBC Distribution Width SD 67.4 fl (35.1-43.9); Red Blood Count 5.34 M/mm3 (4.2-5.4); White Blood Count 14.2 K/mm3 (4.4-11.0)
[2019-09-01 06:17] LABS: Reflex Lactate? Y
[2019-09-01 06:18] LABS: Differential Indicated SCAN CRITERIA MET
[2019-09-01] MEDS: 0.9% Normal Saline 1,000 ML 100 ML IV ×2 (06:18→16:47)
[2019-09-01] MEDS: Heparin Injection (Vial) 5,000 UNIT/ML VIAL 5000 UNIT SC ×3 (06:18→21:07)
[2019-09-01 06:27] LABS: Anion Gap 2 (5-15); BUN 19 mg/dL (7-18); BUN/Creat Ratio 17.8 RATIO (10-20); Calcium,Total 8.1 mg/dL (8.5-10.1); Chloride 110 mmol/L (98-107); Creatinine, Serum 1.07 mg/dL (0.55-1.02); EST Glomerular Filtration Rate 57 mL/min (>60); Est Glom Filt Rate - Afr Amer 70 mL/min (>60); Estimated Creatinine Clearance 60.49 ml/min; Glucose 270 mg/dL (74-106); Potassium 4.7 mmol/L (3.5-5.1); Sodium Level 143 mmol/L (136-145)
[2019-09-01 06:29] LABS: Lactic Acid 1.5 mmol/L (0.4-1.9)
[2019-09-01 06:46] LABS: Anisocytosis 1+; Hypochromasia 1+; Platelet Estimate ADEQUATE (ADEQ); Reactive Lymphocyte 1+
[2019-09-01] MEDS: Insulin Lispro 100 UNIT/ML INSULN.PEN SC ×3 (08:36→21:08)
--- NOTE | 2019-09-01 10:05 | PCM.PN.HOSP ---
Patient Problems: Active and Suspected Problems (Last Updated 06/05/18 @ 21:10 by Molly Partida) Sepsis due to urinary tract infection (Acute) Severe sepsis (Acute) Altered level of consciousness (Acute) Hyperkalemia, transcellular shifts (Acute) Hyperglycemia due to type 2 diabetes mellitus (Acute) Hypoxemia (Acute) MICHELE (acute kidney injury) (Acute) Bilateral pneumonia (Acute) Subjective: Patient seen and examined. She was seen in the early hours of this morning with altered mental status and hypoxia. CT of the chest was negative for any PE and showed bilateral airspace disease greatest within the left lower lobe likely representing pneumonia and some atelectasis and pulmonary edema. COVID screen is pending. She has no complaints this morning. She is alert. She denied cough, shortness of breath, palpitations, dizziness, nausea vomiting or diarrhea. Review of systems otherwise negative. Labs and vitals reviewed. Vitals/I&O's: Vital Signs Temp Pulse Resp BP Pulse Ox 98.0 F 97 20 H 142/82 H 91 09/01/19 06:00 09/01/19 06:00 09/01/19 06:00 09/01/19 06:00 09/01/19 06:44 Oxygen Flow Rate (L/min) 4 Oxygen Delivery Method Nasal Cannula Weight: 198 lb 6.656 oz Body Mass Index (BMI) 31.1 Finger Stick Blood Glucose 456 Intake and Output for Last 24 Hours 08/30/19 08/31/19 09/01/19 23:59 23:59 23:59 Intake Total 2049 Output Total 0 / 0 Balance 2049 General: Alert, Oriented x3, Cooperative, No apparent distress HEENT: Atraumatic, PERRLA, EOMI, Normocephalic Oral: Dry Mucosa Neck: Supple, No JVD, Negative Carotid Bruits Lungs: - - mildly decreased breath sounds bibasally, Cardiovascular: Regular rate, Regular Rhythm, Normal S1, Normal S2, No murmurs Abdomen: Bowel Sounds Present, Soft, Non Tender, Non-Distended, No Hepato-splenomegaly Extremities: No edema, Capillary Refill Less than 3 Seconds Skin: No rashes, No breakdown Musculoskeletal: No Tenderness to Palpation of Joints or Extremities Lymphatic: No Cervical, Supraclavicular, or Inguinal Adenopathy Neurological: Cranial nerves II-XII grossly intact, Neuro grossly intact, Motor Exam 5/5 strength throughout Psych/Mental Status: Normal Affect, Appropriate, Alert and oriented to time, place, person, mood and affect Microbiology Past 72 Hours 09/01/19 05:20 Mucosa - Nasopharyngeal Respiratory Panel (PCR) - Final Laboratory Results 09/01/19 02:11: WBC 14.7 H, RBC 5.73 H, Hgb 13.9, Hct 49.2 H, MCV 85.9, MCH 24.3 L, MCHC 28.3 L, RDW Std Deviation 67.3 H, RDW Coeff of Krista 22.5 H, Plt Count 188, MPV TNP, Immature Gran % (Auto) 1.000 H, Neut % (Auto) 76.1 H, Lymph % (Auto) 10.9 L, Reagan % (Auto) 7.8, Eos % (Auto) 3.5, Baso % (Auto) 0.7, Absolute Neuts (auto) 11.2 H, Absolute Lymphs (auto) 1.60, Nucleated RBC % 0.2, Differential Comment COMMENT, Platelet Estimate ADEQUATE, Polychromasia RARE, Hypochromasia 1+, Anisocytosis 2+, Microcytosis RARE 09/01/19 02:11: Sodium 144, Potassium 5.3 H, Chloride 106, Carbon Dioxide 30.0, Anion Gap 8, BUN 22 H, Creatinine 1.33 H, Estim Creat Clear Calc 46.85, Est GFR (MDRD) Af Amer 54 L, Est GFR (MDRD) Non-Af 45 L, BUN/Creatinine Ratio 16.5, Glucose 441 H, Calcium 8.7, Troponin I < 0.015 09/01/19 02:11: Ethyl Alcohol < 3.0 09/01/19 02:11: Lactic Acid 3.5 H* 09/01/19 02:23: Urine Color Yellow, Urine Clarity Sl. Cloudy, Urine pH 6.0, Ur Specific [place] 1.015, Urine Protein 30 H, Urine Glucose (UA) 1000 H, Urine Ketones Negative, Urine Occult Blood 50 H, Urine Nitrite Negative, Urine Bilirubin Negative, Urine Urobilinogen Normal, Ur Leukocyte Esterase 500 H, Urine RBC 0-5 SEEN, Urine WBC 50-100 SEEN, Ur Squamous Epith Cells 5-10 SEEN, Urine Bacteria 0 SEEN, Urine Mucus 0 SEEN, Urine Yeast 3+ 09/01/19 02:23: Urine Opiates Screen NEGATIVE, Urine Methadone Screen NEGATIVE, Ur Barbiturates Screen NEGATIVE, Ur Phencyclidine Scrn NEGATIVE, Ur Amphetamines Screen NEGATIVE, U Methamphetamin-MDMA NEGATIVE, U Benzodiazepines Scrn POSITIVE H, Urine Cocaine Screen NEGATIVE, U Cannabinoids Screen NEGATIVE, Ur Drug Screen Comment 09/01/19 04:06: POC Glucose 376 H 09/01/19 05:20: COVID-19 (NUSRAT) Pending 09/01/19 05:55: WBC 14.2 H, RBC 5.34, Hgb 12.9, Hct 45.9, MCV 86.0, MCH 24.2 L, MCHC 28.1 L, RDW Std Deviation 67.4 H, RDW Coeff of Krista 22.2 H, Plt Count 169, Immature Gran % (Auto) 1.300 H, Neut % (Auto) 69.2, Lymph % (Auto) 16.2 L, Reagan % (Auto) 9.7, Eos % (Auto) 3.0, Baso % (Auto) 0.6, Absolute Neuts (auto) 9.8 H, Absolute Lymphs (auto) 2.30, Nucleated RBC % 0.2, Reactive Lymphocytes 1+, Platelet Estimate ADEQUATE, Hypochromasia 1+, Anisocytosis 1+ 09/01/19 05:55: Sodium 143, Potassium 4.7, Chloride 110 H, Carbon Dioxide 31.0, Anion Gap 2 L, BUN 19 H, Creatinine 1.07 H, Estim Creat Clear Calc 60.49, Est GFR (MDRD) Af Amer 70, Est GFR (MDRD) Non-Af 57 L, BUN/Creatinine Ratio 17.8, Glucose 270 H, Calcium 8.1 L 09/01/19 05:55: Lactic Acid 1.[address] 09/01/19 02:10 IMPRESSION: Chronic changes as described. No acute intracranial hemorrhage or space lesion. Electronically Signed: Darline Marrero MD at 3:01 EDT , Service support , Chest X-Ray 09/01/19 02:10 IMPRESSION: Bilateral atelectasis as described. Overall stable study in the interval. Electronically Signed: Darline Marrero MD at 3:07 EDT , Service support , Chest CTA 09/01/19 03:24 IMPRESSION: No pulmonary embolism, aortic aneurysm, or aortic dissection. Bilateral airspace disease greatest within the left lower lobe likely representing pneumonia. There is some atelectasis and some pulmonary edema as well. Individualized dose optimization techniques were used for this CT. at 0437 Reported and signed by: David Carvajal MD Electronically Signed: David Carvajal MD at 4:35 EDT Tel , Service support , Current Medications Acetaminophen (Tylenol) 650 mg PO Q6H PRN PRN PRN Reason: Pain Score 1-10/Temp > 100.7 F Azithromycin (Zithromax) 500 mg PO Q24@2200 [facility] Dextrose (D50w Syringe) 0 gm IV X1 PRN; Protocol PRN Reason: Hypoglycemia Glucagon () 1 mg IM .X1 PRN PRN Reason: Hypoglycemia Heparin Sodium (Porcine) (Heparin Na) 5,000 unit SC Q8 [facility] Last Admin: 09/01/19 06:18 Dose: 5,000 unit Documented by: Sodium Chloride () 1,000 mls @ 100 mls/hr IV .Q10H [facility] Last Admin: 09/01/19 06:18 Dose: 100 mls/hr Documented by: Ceftriaxone Sodium 2 gm/ (Sodium Chloride) 50 mls @ 100 mls/hr IV Q24@2200 [facility] Sodium Chloride () 250 mls @ 15 mls/hr IV .[id number] PRN PRN Reason: Saline Flush Sodium Chloride () 250 mls @ 15 mls/hr IV .[id number] PRN PRN Reason: Additional IVPB Infusion Insulin Glargine (Lantus (Bkc)) 40 units SC BREAKFAST [facility] Last Admin: 09/01/19 08:37 Dose: 40 u Documented by: Insulin Glargine (Lantus (Bkc)) 40 units SC QHS [facility] Insulin Human Lispro (Humalog Kwikpen (Bk)) 0 unit SC ACHS [facility]; Protocol Last Admin: 09/01/19 08:36 Dose: 6 u Documented by: Melatonin (Melatonin) 3 mg PO QHS PRN PRN PRN Reason: INSOMNIA Ondansetron HCl (Zofran) 4 mg IV Q8H PRN PRN PRN Reason: NAUSEA/VOMITING Sodium Chloride () 10 - 40 ml IV UD PRN PRN Reason: SALINE FLUSH STROKE Vital Signs/Narrative: Vital Signs Pulse Ox 09/01/19 06:44 91 Medical Necessity - Tobacco Use Smoking Status: Current every day smoker Tobacco Use: Cigarettes Assessment/Plan All Active Problems (Last Updated 06/05/18 @ 21:10 by Molly Partida) Hyperglycemia (Acute) Dehydration (Acute) Leukocytosis (Acute) UTI (urinary tract infection) (Acute) Pneumonia (Acute) Sepsis due to urinary tract infection (Acute) Severe sepsis (Acute) Altered level of consciousness (Acute) Hyperkalemia, transcellular shifts (Acute) Hyperglycemia due to type 2 diabetes mellitus (Acute) Hypoxemia (Acute) MICHELE (acute kidney injury) (Acute) Bilateral pneumonia (Acute) Blind left eye (Resolved) 1. Severe sepsis due to community acquired pneumonia SIRS criteria today is 2/4- tachypnea and leucoytosis lactic acid came down to 1.5 with IVF administration on IV ceftriaxone and azithromycin COVID screen pending continue antibiotics titrate oxygen and maintain sats>90% 2. Acute hypoxic respiratory insufficiency due to community acquired pneumonia She was saturating at 81% on room air when she came in and required up to 4 L of oxygen to maintain saturation at 90% and above. She was also tachypneic. CTA was negative for PE. Currently on IV ceftriaxone and azithromycin. COVID screen is pending. Titrate oxygen to maintain saturation above 90%. 3. Acute metabolic encephalopathy' likely due to pneumonia and benzodiazepines she was on now more alert and responsive urine tox screen was positive for benzodiazepines. benzodiazepines and risperdal on hold 4. Type 2 diabetes mellitus On Lantus 40 units twice daily Insulin sliding scale. Accu-Cheks AC at bedtime. 6. Chronic back pain on baclofen and Keppra. Lyrica on hold. 7. Schizophrenia: risperdal on hold due to Acue metabolic encephalopathy and MICHELE DVT prophylaxis:heparin Inpatient E&M: 20127 Subs Hosp L3
[2019-09-01 12:01] LABS: Bedside Glucose 137 mg/dL (70-110)
--- NOTE | 2019-09-01 14:04 | CASEMGMT ---
KIARRA SAHA assessment. Patient is confused per nursing and unable to participate in assessment. KIARRA SAHA found Diego's information from previous assessment. KIARRA SAHA called diego Mckeon who was willing to participate in assessment and is able to answer all questions appropriately. Care providers, pharmacy, and demographics verified. Plan is for patient to discharge home, will monitor for need for HHC pending therapy. Philip states he has no further questions or concerns at this time. PCP: Jesse Specialists: none Preferred Pharmacy: [facility] Insurance: [employer] Prescription Benefit: yes Living Will/HPOA: none LNOK: Philip Cortez [phone] Living Arrangements: Patient lives with diego in split level apartment. Patient requires assistance from diego for ADL. Patient able to ambulate stairs. Transportation: [employer] DME/HHC: Patient has shower chair, raised toilet, walker, wheelchair, nebulizer. Disposition Plan: Patient to discharge home with family support and follow-up plans in place. Monitor for need for HHC pending PT/OT. Celeste COPPOLA, RN, CM
[2019-09-01 17:01] LABS: Bedside Glucose 218 mg/dL (70-110)
[2019-09-01] MEDS: Acetaminophen 325 MG Tablet 650 MG PO (21:17)
[2019-09-01 21:31] LABS: Bedside Glucose 219 mg/dL (70-110)
[2019-09-02] MEDS: 0.9% Normal Saline 1,000 ML 100 ML IV (01:22)
[2019-09-02 02:00] VITALS: BP 142/77; PULSE 92; RESP 15; TEMP 36.9; O2SAT 94
[2019-09-02 05:59] LABS: Absolute Lymphocyte Count 1.58 X10^3/uL (0.83-4.51); Absolute Neutrophil Count 9.9 X10^3/uL (2.0-7.7); Basophil# 0.09 X10^3/uL; Basophil% 0.7 % (0-1); Eosinophil# 0.18 X10^3/uL; Eosinophils% 1.4 % (0-5); Hematocrit 45.5 % (37-47); Lymphocyte # 1.58 X10^3/ul (4.0); Lymphocyte % 12.1 % (19-41); Mean Corp Hgb Conc 28.6 g/dL (32-36); Mean Corpuscular Hgb 24.4 pg (27.0-32.0); Mean Corpuscular Volume 85.5 fL (81-99); Monocyte# 1.18 X10^3/uL; NRBC Flagged by Analyzer 0 % (0-5); POSITIVE MORPHOLOGY YES; Platelet Count 162 K/mm3 (150-450); RBC Distribution Width CV 22.1 % (11.6-14.6); RBC Distribution Width SD 66.3 fl (35.1-43.9); Red Blood Count 5.32 M/mm3 (4.2-5.4)
[2019-09-02 06:00] LABS: Differential Indicated SCAN CRITERIA MET
[2019-09-02] MEDS: Heparin Injection (Vial) 5,000 UNIT/ML VIAL 5000 UNIT SC ×3 (06:02→21:49)
[2019-09-02 06:12] LABS: Anion Gap 3 (5-15); BUN 9 mg/dL (7-18); BUN/Creat Ratio 14.4 RATIO (10-20); Chloride 115 mmol/L (98-107); Creatinine, Serum 0.63 mg/dL (0.55-1.02); EST Glomerular Filtration Rate 106 mL/min (>60); Est Glom Filt Rate - Afr Amer 129 mL/min (>60); Estimated Creatinine Clearance 102.73 ml/min; Glucose 131 mg/dL (74-106); Sodium Level 147 mmol/L (136-145)
[2019-09-02 06:15] LABS: Differential Comment SCANNED
[2019-09-02 06:16] LABS: Ovalocyte RARE; Polychromasia RARE; Stomatocyte RARE
[2019-09-02 06:49] VITALS: O2SAT 88
[2019-09-02 08:00] VITALS: BP 141/80; PULSE 88; RESP 16; TEMP 36.8; O2SAT 94
--- NOTE | 2019-09-02 09:04 | PN_ITS ---
Patient Problems: Active and Suspected Problems (Last Updated 06/05/18 @ 21:10 by Molly Partida) Sepsis due to urinary tract infection (Acute) Severe sepsis (Acute) Altered level of consciousness (Acute) Hyperkalemia, transcellular shifts (Acute) Hyperglycemia due to type 2 diabetes mellitus (Acute) Hypoxemia (Acute) MICHLEE (acute kidney injury) (Acute) Bilateral pneumonia (Acute) Subjective: Patient seen and examined. She has no complaints today. She denies shortness of breath, cough, chest pain, nausea, vomiting, abdominal pain or diarrhea. Review of systems otherwise negative. Labs and vitals reviewed. She has remained hemodynamically stable. She is on 4L of oxygen. Vitals/I&O's: Vital Signs Temp Pulse Resp BP Pulse Ox 98.3 F 88 16 141/80 H 94 09/02/19 08:00 09/02/19 08:00 09/02/19 08:00 09/02/19 08:00 09/02/19 08:00 Oxygen Flow Rate (L/min) 4 Oxygen Delivery Method Nasal Cannula Weight: 195 lb 5.273 oz Body Mass Index (BMI) 31.1 Finger Stick Blood Glucose 456 Intake and Output for Last 24 Hours 08/31/19 09/01/19 09/02/19 23:59 23:59 23:59 Intake Total 3350 / 3350 1621.67 / 1621.67 Output Total 750 / 750 400 / 400 Balance 2600 / 2600 1221.67 / 1221.67 General: Alert, Oriented x3, Cooperative, No apparent distress HEENT: Atraumatic, PERRLA, EOMI, Normocephalic Oral: Dry Mucosa Neck: Supple, No JVD, Negative Carotid Bruits Lungs: - - mildly decreased breath sounds bibasally, on 4L of oxygen Cardiovascular: Regular rate, Regular Rhythm, Normal S1, Normal S2, No murmurs Abdomen: Bowel Sounds Present, Soft, Non Tender, Non-Distended, No Hepato- splenomegaly Extremities: No edema, Capillary Refill Less than 3 Seconds Skin: No rashes, No breakdown Musculoskeletal: No Tenderness to Palpation of Joints or Extremities Lymphatic: No Cervical, Supraclavicular, or Inguinal Adenopathy Neurological: Cranial nerves II-XII grossly intact, Neuro grossly intact, Motor Exam 5/5 strength throughout Psych/Mental Status: Normal Affect, Appropriate, Alert and oriented to time, place, person, mood and affect Microbiology Past 72 Hours 09/01/19 05:20 Mucosa - Nasopharyngeal Respiratory Panel (PCR) - Final Laboratory Results 09/01/19 11:49: POC Glucose 137 H 09/01/19 16:51: POC Glucose 218 H 09/01/19 21:04: POC Glucose 219 H 09/02/19 05:40: WBC 13.0 H, RBC 5.32, Hgb 13.0, Hct 45.5, MCV 85.5, MCH 24.4 L, MCHC 28.6 L, RDW Std Deviation 66.3 H, RDW Coeff of Krista 22.1 H, Plt Count 162, Immature Gran % (Auto) 0.800, Neut % (Auto) 76.0 H, Lymph % (Auto) 12.1 L, Harvey % (Auto) 9.0, Eos % (Auto) 1.4, Baso % (Auto) 0.7, Absolute Neuts (auto) 9.9 H, Absolute Lymphs (auto) 1.58, Nucleated RBC % 0, Differential Comment SCANNED, Polychromasia RARE, Ovalocytes RARE, Stomatocytes RARE 09/02/19 05:40: Sodium 147 H, Potassium 4.0, Chloride 115 H, Carbon Dioxide 29.0, Anion Gap 3 L, BUN 9, Creatinine 0.63, Estim Creat Clear Calc 102.73, Est GFR (MDRD) Af Amer 129, Est GFR (MDRD) Non-Af 106, BUN/Creatinine Ratio 14.4, Glucose 131 H, Calcium 8.0 L Diagnostic Data Brain CT 09/01/19 02:10 IMPRESSION: Chronic changes as described. No acute intracranial hemorrhage or space lesion. Electronically Signed: Darline Marrero MD at 3:01 EDT , Service support , Chest X-Ray 09/01/19 02:10 IMPRESSION: Bilateral atelectasis as described. Overall stable study in the interval. Electronically Signed: Darline Marrero MD at 3:07 EDT , Service support , Chest CTA 09/01/19 03:24 IMPRESSION: No pulmonary embolism, aortic aneurysm, or aortic dissection. Bilateral airspace disease greatest within the left lower lobe likely representing pneumonia. There is some atelectasis and some pulmonary edema as well. Individualized dose optimization techniques were used for this CT. at 0437 Reported and signed by: David Carvajal MD Electronically Signed: David Carvajal MD at 4:35 EDT Tel , Service support , Current Medications Acetaminophen (Tylenol) 650 mg PO Q6H PRN PRN PRN Reason: Pain Score 1-10/Temp > 100.7 F Last Admin: 09/01/19 21:17 Dose: 650 mg Documented by: Azithromycin (Zithromax) 500 mg PO Q24@2200 [facility] Last Admin: 09/01/19 21:07 Dose: 500 mg Documented by: Dextrose (D50w Syringe) 0 gm IV X1 PRN; Protocol PRN Reason: Hypoglycemia Glucagon () 1 mg IM .X1 PRN PRN Reason: Hypoglycemia Heparin Sodium (Porcine) (Heparin Na) 5,000 unit SC Q8 [facility] Last Admin: 09/02/19 06:02 Dose: 5,000 unit Documented by: Ceftriaxone Sodium 2 gm/ (Sodium Chloride) 50 mls @ 100 mls/hr IV Q24@2200 [facility] Last Infusion: 09/01/19 21:37 Dose: Infused Documented by: Sodium Chloride () 250 mls @ 15 mls/hr IV .[id number] PRN PRN Reason: Saline Flush Sodium Chloride () 250 mls @ 15 mls/hr IV .[id number] PRN PRN Reason: Additional IVPB Infusion Insulin Glargine (Lantus (Bkc)) 40 units SC BREAKFAST [facility] Last Admin: 09/02/19 08:44 Dose: 40 u Documented by: Insulin Glargine (Lantus (Bkc)) 40 units SC QHS [facility] Last Admin: 09/01/19 21:07 Dose: 40 units Documented by: Insulin Human Lispro (Humalog Kwikpen (Bk)) 0 unit SC ACHS [facility]; Protocol Last Admin: 09/02/19 07:50 Dose: Not Given Documented by: Melatonin (Melatonin) 3 mg PO QHS PRN PRN PRN Reason: INSOMNIA Ondansetron HCl (Zofran) 4 mg IV Q8H PRN PRN PRN Reason: NAUSEA/VOMITING Sodium Chloride () 10 - 40 ml IV UD PRN PRN Reason: SALINE FLUSH STROKE Vital Signs/Narrative: Vital Signs Temp Pulse Resp BP Pulse Ox 09/02/19 08:00 98.3 F 88 16 141/80 H 94 09/02/19 06:49 88 Medical Necessity - Tobacco Use Smoking Status: Current every day smoker Tobacco Use: Cigarettes Assessment/Plan All Active Problems (Last Updated 06/05/18 @ 21:10 by Molly Partida) Hyperglycemia (Acute) Dehydration (Acute) Leukocytosis (Acute) UTI (urinary tract infection) (Acute) Pneumonia (Acute) Sepsis due to urinary tract infection (Acute) Severe sepsis (Acute) Altered level of consciousness (Acute) Hyperkalemia, transcellular shifts (Acute) Hyperglycemia due to type 2 diabetes mellitus (Acute) Hypoxemia (Acute) MICHELE (acute kidney injury) (Acute) Bilateral pneumonia (Acute) Blind left eye (Resolved) 1. Severe sepsis due to community acquired pneumonia * SIRS criteria today is 1/4-leucocytosis. * on IV ceftriaxone and azithromycin * COVID screen pending * continue antibiotics * titrate oxygen and maintain sats>90% * respiratory panel is negative. * 2. Acute hypoxic respiratory insufficiency due to community acquired pneumonia * on 4L of oxygen by nasal canula. * CTA was negative for PE. * Currently on IV ceftriaxone and azithromycin. COVID screen is pending. * Titrate oxygen to maintain saturation above 90%. * 3. Acute metabolic encephalopathy * likely due to pneumonia and benzodiazepines she was on * resolved. * urine tox screen was positive for benzodiazepines. * benzodiazepines and risperdal on hold * 4. Type 2 diabetes mellitus * On Lantus 40 units twice daily * Insulin sliding scale. Accu-Cheks AC at bedtime. * 6. Chronic back pain * on baclofen and Keppra. Lyrica on hold. * 7. Schizophrenia: risperdal on hold due to Acue metabolic encephalopathy and MICHELE DVT prophylaxis:heparin Inpatient E&M: [id number] [facility] Hosp L3
[2019-09-02 12:15] LABS: Bedside Glucose 130 mg/dL (70-110)
[2019-09-02 15:00] VITALS: BP 138/87; PULSE 85; RESP 16; TEMP 36.6; O2SAT 94
[2019-09-02 17:07] LABS: Bedside Glucose 82 mg/dL (70-110)
--- NOTE | 2019-09-02 19:36 | NURSING ---
report called to KIARRA Perkins at this time.
--- NOTE | 2019-09-02 19:43 | NURSING ---
patient taken to [facility] via wheelchair by PAI GOW MANAGER.
[2019-09-02 20:00] VITALS: BP 149/78; PULSE 95; RESP 16; TEMP 37.1; O2SAT 98
[2019-09-02] MEDS: Azithromycin 250 MG Tablet 500 MG PO (21:50)
[2019-09-02 22:26] LABS: Bedside Glucose 103 mg/dL (70-110)
[2019-09-02 23:00] VITALS: O2SAT 94
[2019-09-02] MEDS: MELATONIN 3 MG TABLET PO (23:11)
[2019-09-02] MEDS: Acetaminophen 325 MG Tablet 650 MG PO (23:11)
[2019-09-03] VITALS (7 sets, daily range): BP systolic 138–154; BP diastolic 63–76; PULSE 78–90; RESP 16–18; TEMP 36.8–37.1; O2SAT 92–94
[2019-09-03 06:15] LABS: Absolute Lymphocyte Count 1.31 X10^3/uL (0.83-4.51); Absolute Neutrophil Count 10.1 X10^3/uL (2.0-7.7); Basophil# 0.07 X10^3/uL; Basophil% 0.6 % (0-1); Eosinophil# 0.09 X10^3/uL; Eosinophils% 0.7 % (0-5); Hematocrit 48.3 % (37-47); Lymphocyte # 1.31 X10^3/ul (4.0); Lymphocyte % 10.4 % (19-41); Mean Corpuscular Hgb 24.3 pg (27.0-32.0); Mean Corpuscular Volume 83.7 fL (81-99); Mean Platelet Vol. 10.6 fl (6.2-12.0); Monocyte# 0.93 X10^3/uL; Monocyte% 7.4 % (0-10); NRBC Flagged by Analyzer 0 % (0-5); Neutrophil # 10.12 X10^3/uL (2.7-7.7); Neutrophil % 80.3 % (47-70); POSITIVE MORPHOLOGY YES; Platelet Count 195 K/mm3 (150-450); RBC Distribution Width CV 22.5 % (11.6-14.6); RBC Distribution Width SD 65.1 fl (35.1-43.9); Red Blood Count 5.77 M/mm3 (4.2-5.4); White Blood Count 12.6 K/mm3 (4.4-11.0)
[2019-09-03] MEDS: Heparin Injection (Vial) 5,000 UNIT/ML VIAL 5000 UNIT SC ×4 (06:18→22:05)
[2019-09-03 06:20] LABS: Differential Indicated SCAN CRITERIA MET
[2019-09-03 06:28] LABS: Anion Gap 5 (5-15); BUN 8 mg/dL (7-18); Calcium,Total 9.1 mg/dL (8.5-10.1); Chloride 108 mmol/L (98-107); Creatinine, Serum 0.66 mg/dL (0.55-1.02); EST Glomerular Filtration Rate 99 mL/min (>60); Est Glom Filt Rate - Afr Amer 120 mL/min (>60); Estimated Creatinine Clearance 98.06 ml/min; Glucose 84 mg/dL (74-106); Potassium 3.6 mmol/L (3.5-5.1); Sodium Level 143 mmol/L (136-145)
[2019-09-03 06:33] LABS: Anisocytosis 2+; Differential Comment SCANNED; Macrocytosis 1+; Microcytosis 1+
[2019-09-03 06:50] LABS: Bedside Glucose 72 mg/dL (70-110)
--- NOTE | 2019-09-03 10:58 | PN_ITS ---
Patient Problems: Active and Suspected Problems (Last Updated 06/05/18 @ 21:10 by Molly Partida) Sepsis due to urinary tract infection (Acute) Severe sepsis (Acute) Altered level of consciousness (Acute) Hyperkalemia, transcellular shifts (Acute) Hyperglycemia due to type 2 diabetes mellitus (Acute) Hypoxemia (Acute) MICHELE (acute kidney injury) (Acute) Bilateral pneumonia (Acute) Subjective: Patient seen and examined. She has no complaints today. Shortness of breath is much better. She has been weaned down to 2 L of oxygen and saturating at 93%. Review of symptoms otherwise negative. Labs and vitals reviewed. She was noted to be desaturating while sleeping down to the high 70s and low 80s. Patient states she has been told she has sleep apnea but she is not yet on a CPAP machine and this could be accounting for her desaturation at night. Vitals/I&O's: Vital Signs Temp Pulse Resp BP Pulse Ox 98.7 F 90 16 150/76 H 93 09/03/19 08:16 09/03/19 08:16 09/03/19 08:16 09/03/19 08:16 09/03/19 08:26 Oxygen Flow Rate (L/min) 2 Oxygen Delivery Method Nasal Cannula Weight: 189 lb 9.561 oz Body Mass Index (BMI) 31.1 Finger Stick Blood Glucose 456 Intake and Output for Last 24 Hours 09/01/19 09/02/19 09/03/19 23:59 23:59 23:59 Intake Total 3350 / 3350 2031.67 / 2431.67 1140 / 1140 Output Total 750 / 750 1275 / 1275 Balance 2600 / 2600 756.67 / 1156.67 1140 / 1140 General: Alert, Oriented x3, Cooperative, No apparent distress HEENT: Atraumatic, PERRLA, EOMI, Normocephalic Oral: Dry Mucosa Neck: Supple, No JVD, Negative Carotid Bruits Lungs: - - clear to auscultation, on 2L of oxygen Cardiovascular: Regular rate, Regular Rhythm, Normal S1, Normal S2, No murmurs Abdomen: Bowel Sounds Present, Soft, Non Tender, Non-Distended, No Hepato- splenomegaly Extremities: No edema, Capillary Refill Less than 3 Seconds Skin: No rashes, No breakdown Musculoskeletal: No Tenderness to Palpation of Joints or Extremities Lymphatic: No Cervical, Supraclavicular, or Inguinal Adenopathy Neurological: Cranial nerves II-XII grossly intact, Neuro grossly intact, Motor Exam 5/5 strength throughout Psych/Mental Status: Normal Affect, Appropriate, Alert and oriented to time, place, person, mood and affect Microbiology Past 72 Hours 09/01/19 02:23 Urine, Clean Catch Urine Culture - Final Mixed Gram Pos & Gram Neg Org 09/01/19 03:16 Blood Culture (Wb) - Right Forearm Blood Culture - Preliminary No growth in 48 hours. 09/01/19 02:11 Blood Culture (Wb) - Left Forearm Blood Culture - Preliminary No growth in 48 hours. 09/01/19 05:20 Mucosa - Nasopharyngeal Respiratory Panel (PCR) - Final Laboratory Results 09/01/19 05:20: COVID-19 (NUSRAT) Not Detected 09/02/19 12:08: POC Glucose 130 H 09/02/19 17:00: POC Glucose 82 09/02/19 21:39: POC Glucose 103 09/03/19 05:42: WBC 12.6 H, RBC 5.77 H, Hgb 14.0, Hct 48.3 H, MCV 83.7, MCH 24.3 L, MCHC 29.0 L, RDW Std Deviation 65.1 H, RDW Coeff of Krista 22.5 H, Plt Count 195, MPV 10.6, Immature Gran % (Auto) 0.600, Neut % (Auto) 80.3 H, Lymph % (Auto) 10.4 L, [place] % (Auto) 7.4, Eos % (Auto) 0.7, Baso % (Auto) 0.6, Absolute Neuts (auto) 10.1 H, Absolute Lymphs (auto) 1.31, Nucleated RBC % 0, Differential Comment SCANNED, Anisocytosis 2+, Microcytosis 1+, Macrocytosis 1+ 09/03/19 05:42: Sodium 143, Potassium 3.6, Chloride 108 H, Carbon Dioxide 30.0, Anion Gap 5, BUN 8, Creatinine 0.66, Estim Creat Clear Calc 98.06, Est GFR (MDRD) Af Amer 120, Est GFR (MDRD) Non-Af 99, BUN/Creatinine Ratio 12.0, Glucose 84, Calcium 9.1 09/03/19 06:14: POC Glucose [address] 09/01/19 02:10 IMPRESSION: Chronic changes as described. No acute intracranial hemorrhage or space lesion. Electronically Signed: Darline Marrero MD at 3:01 EDT , Service support , Chest X-Ray 09/01/19 02:10 IMPRESSION: Bilateral atelectasis as described. Overall stable study in the interval. Electronically Signed: Darline Marrero MD at 3:07 EDT , Service support , Chest CTA 09/01/19 03:24 IMPRESSION: No pulmonary embolism, aortic aneurysm, or aortic dissection. Bilateral airspace disease greatest within the left lower lobe likely representing pneumonia. There is some atelectasis and some pulmonary edema as well. Individualized dose optimization techniques were used for this CT. at 0437 Reported and signed by: David Carvajal MD Electronically Signed: David Carvajal MD at 4:35 EDT Tel , Service support , Current Medications Acetaminophen (Tylenol) 650 mg PO Q6H PRN PRN PRN Reason: Pain Score 1-10/Temp > 100.7 F Last Admin: 09/02/19 23:11 Dose: 650 mg Documented by: Azithromycin (Zithromax) 500 mg PO Q24@2200 [facility] Last Admin: 09/02/19 21:50 Dose: 500 mg Documented by: Dextrose (D50w Syringe) 0 gm IV X1 PRN; Protocol PRN Reason: Hypoglycemia Glucagon () 1 mg IM .X1 PRN PRN Reason: Hypoglycemia Heparin Sodium (Porcine) (Heparin Na) 5,000 unit SC Q8 [facility] Last Admin: 09/03/19 06:18 Dose: 5,000 unit Documented by: Ceftriaxone Sodium 2 gm/ (Sodium Chloride) 50 mls @ 100 mls/hr IV Q24@2200 [facility] Last Infusion: 09/02/19 23:49 Dose: Infused Documented by: Sodium Chloride () 250 mls @ 15 mls/hr IV .[id number] PRN PRN Reason: Saline Flush Sodium Chloride () 250 mls @ 15 mls/hr IV .[id number] PRN PRN Reason: Additional IVPB Infusion Insulin Glargine (Lantus (Bkc)) 40 units SC BREAKFAST [facility] Last Admin: 09/03/19 08:31 Dose: 40 u Documented by: Insulin Glargine (Lantus (Bkc)) 40 units SC QHS [facility] Last Admin: 09/02/19 22:05 Dose: 40 units Documented by: Insulin Human Lispro (Humalog Kwikpen (Bkc)) 0 unit SC ACHS [facility]; Protocol Last Admin: 09/03/19 06:18 Dose: Not Given Documented by: Melatonin (Melatonin) 3 mg PO QHS PRN PRN PRN Reason: INSOMNIA Last Admin: 09/02/19 23:11 Dose: 3 mg Documented by: Ondansetron HCl (Zofran) 4 mg IV Q8H PRN PRN PRN Reason: NAUSEA/VOMITING Sodium Chloride () 10 - 40 ml IV UD PRN PRN Reason: SALINE FLUSH STROKE Vital Signs/Narrative: Vital Signs Temp Pulse Resp BP Pulse Ox 09/03/19 08:26 93 09/03/19 08:16 98.7 F 90 16 150/76 H 93 09/03/19 08:09 92 Medical Necessity - Tobacco Use Smoking Status: Current every day smoker Tobacco Use: Cigarettes Assessment/Plan All Active Problems (Last Updated 06/05/18 @ 21:10 by Molly Partida) Hyperglycemia (Acute) Dehydration (Acute) Leukocytosis (Acute) UTI (urinary tract infection) (Acute) Pneumonia (Acute) Sepsis due to urinary tract infection (Acute) Severe sepsis (Acute) Altered level of consciousness (Acute) Hyperkalemia, transcellular shifts (Acute) Hyperglycemia due to type 2 diabetes mellitus (Acute) Hypoxemia (Acute) MICHELE (acute kidney injury) (Acute) Bilateral pneumonia (Acute) Blind left eye (Resolved) 1. Severe sepsis due to community acquired pneumonia * SIRS criteria today is 1/4-leucocytosis. * on IV ceftriaxone and azithromycin * COVID screen pending * continue antibiotics * titrate oxygen and maintain sats>90% * respiratory panel is negative. * 2. Acute hypoxic respiratory insufficiency due to community acquired pneumonia * now on 2L of oxygen by nasal canula * CTA was negative for PE. * Currently on IV ceftriaxone and azithromycin. COVID screen negative. * Titrate oxygen to maintain saturation above 90%. * 3. Acute metabolic encephalopathy * resolved. * urine tox screen was positive for benzodiazepines. * benzodiazepines and risperdal on hold * 4. Type 2 diabetes mellitus * On Lantus 40 units twice daily * Insulin sliding scale. Accu-Cheks AC at bedtime. * 5. Chronic back pain * on baclofen and Keppra. Lyrica on hold. * 6. Schizophrenia: risperdal on hold due to Acute metabolic encephalopathy and MICHELE DVT prophylaxis:heparin Inpatient E&M: 40937 Subs Hosp L2
[2019-09-03 11:15] LABS: Bedside Glucose 127 mg/dL (70-110)
--- NOTE | 2019-09-03 12:31 | CASEMGMT ---
RN CM Assessment Note Presentation: SEPSIS, Bilateral pneumonia, hypoxic respiratory failure. COVID-19 negative Intro role of CM and purpose of RN CM assessment to patient in room. Pt is awake, alert and able to participate in assessment. Demographics, PCP and Pharmacy verified. Pt states she lives in apartment with her boyfriend. He works 12 hours a day, so pt is home alone. Per pt, boyfriend is able to assist with care needs. PCP: Dr. Alejandro Patricia Preferred Pharmacy: [facility] Insurance: [employer] Prescription Benefit: yes LNOK : Philip colby [phone] (added to demographic sheet as Emergency Contact) Living Arrangements: Lives independently with ofefrienromina. States she has stairs to apartment, and is able to do stairs, but has some difficulty. Pt states she can shower, dress self, but sometimes needs assistance. Pt states she is working with her healthcare corporate account director Robyn @ [facility] to try and get aide services, but this has not been resumed yet. Pt had [place] aide services in past. Transportation: Pt does not drive. She uses taxi service through [employer] DME: walker, wheelchair, shower chair, raised toilet seat. HHC: none currently. Patient DC goals: Home on dc. DC PLAN: Home. RN CM advised to contact cm for any concerns/needs that may arise. Efrain COPPOLA RN AC
[2019-09-03 16:35] LABS: Bedside Glucose 72 mg/dL (70-110)
[2019-09-03] MEDS: Azithromycin 250 MG Tablet 500 MG PO (21:57)
[2019-09-03] MEDS: 0.9% Saline Lock 10 ML Syringe IV (21:57)
[2019-09-03 22:16] LABS: Bedside Glucose 73 mg/dL (70-110)
[2019-09-03 23:40] LABS: Bedside Glucose 68 mg/dL (70-110)
--- NOTE | 2019-09-03 23:40 | NURSING ---
pt's bg level low at 68. 120 ml of orange juice given.
[2019-09-04 00:36] VITALS: BP 132/65; PULSE 68; RESP 20; TEMP 36.7; O2SAT 96
[2019-09-04 00:40] LABS: Bedside Glucose 131 mg/dL (70-110)
[2019-09-04 05:28] LABS: Absolute Neutrophil Count 9.1 X10^3/uL (2.0-7.7); Basophil# 0.07 X10^3/uL; Basophil% 0.6 % (0-1); Eosinophil# 0.13 X10^3/uL; Eosinophils% 1.1 % (0-5); Hematocrit 49.8 % (37-47); Hemoglobin 14.6 g/dL (12.0-15.0); Lymphocyte % 9.6 % (19-41); Mean Corp Hgb Conc 29.3 g/dL (32-36); Mean Corpuscular Volume 81.9 fL (81-99); Mean Platelet Vol. 10.6 fl (6.2-12.0); Monocyte# 0.92 X10^3/uL; Monocyte% 8.1 % (0-10); NRBC Flagged by Analyzer 0 % (0-5); Neutrophil # 9.12 X10^3/uL (2.7-7.7); Neutrophil % 80.1 % (47-70); POSITIVE MORPHOLOGY YES; Platelet Count 211 K/mm3 (150-450); RBC Distribution Width CV 22.5 % (11.6-14.6); RBC Distribution Width SD 64.9 fl (35.1-43.9); Red Blood Count 6.08 M/mm3 (4.2-5.4); White Blood Count 11.4 K/mm3 (4.4-11.0)
[2019-09-04 05:39] LABS: Differential Indicated SCAN CRITERIA MET
[2019-09-04 05:53] LABS: Anion Gap 6 (5-15); BUN 10 mg/dL (7-18); BUN/Creat Ratio 15.4 RATIO (10-20); Calcium,Total 8.7 mg/dL (8.5-10.1); Chloride 108 mmol/L (98-107); Creatinine, Serum 0.65 mg/dL (0.55-1.02); EST Glomerular Filtration Rate 102 mL/min (>60); Est Glom Filt Rate - Afr Amer 124 mL/min (>60); Estimated Creatinine Clearance 99.57 ml/min; Glucose 89 mg/dL (74-106); Potassium 3.6 mmol/L (3.5-5.1); Sodium Level 143 mmol/L (136-145)
[2019-09-04 05:55] LABS: Anisocytosis 1+; Hypochromasia 1+; Microcytosis 1+; Platelet Estimate ADEQUATE (ADEQ); Polychromasia RARE
[2019-09-04 06:15] VITALS: BP 139/66; PULSE 70; RESP 18; TEMP 36.8; O2SAT 95
[2019-09-04] MEDS: Heparin Injection (Vial) 5,000 UNIT/ML VIAL 5000 UNIT SC (06:18)
--- NOTE | 2019-09-04 06:20 | NURSING ---
bg 71, gave pt 120 ml of juice and called dietary to have pt's tray delivered at 0730
[2019-09-04 06:35] LABS: Bedside Glucose 71 mg/dL (70-110)
[2019-09-04 07:50] VITALS: O2SAT 91
[2019-09-04 08:00] VITALS: BP 139/78; PULSE 68; RESP 18; TEMP 36.8; O2SAT 93
[2019-09-04 08:21] LABS: Bedside Glucose 105 mg/dL (70-110)
[2019-09-04 08:53] VITALS: O2SAT 94; O2SAT 95
--- NOTE | 2019-09-04 11:42 | DCINST_ITS ---
- Discharge Diagnoses Current Active Problems: Current Active and Chronic Problems (Last Updated 06/05/18 @ 21:10 by Molly Partida) Sepsis due to urinary tract infection (Acute) Severe sepsis (Acute) Altered level of consciousness (Acute) Hyperkalemia, transcellular shifts (Acute) Hyperglycemia due to type 2 diabetes mellitus (Acute) Hypoxemia (Acute) MICHELE (acute kidney injury) (Acute) Bilateral pneumonia (Acute) You will use the following diet at home:: Cardiac Your food should be the consistency of: Regular Your liquids should be the consistency of: Regular/Thin Discharge Activity: Return to Normal Activity Weight Bearing Status: Weight bearing as tolerated Call your doctor if you observe: Fever of 101 or Higher, Shortness of breath, Dizziness, Fainting spells, Swelling in the ankles, Chest pain, Increased palpitations (irregular heartbeat) Instructions: What Is Pneumonia?, ED Confusion Additional Instructions: basaglar insulin reduced to 30IU sq bid. Check blood sugar before and after meals for the next 2 weeks, adn present records to your PCP, for adjustment of insulin dose as needed. Allergies/Adverse Reactions: Allergies Sulfa (Sulfonamide Antibiotics) Allergy (Verified 09/01/19 02:05) Hives Medications to take at Discharge Lorazepam [Ativan] 2 mg PO TID PRN PRN 06/23/15 Pregabalin [Lyrica] 200 mg PO BID 10/27/15 traMADol [Ultram] 100 mg PO Q6H PRN PRN 10/27/15 Pregabalin [Lyrica] 100 mg PO LUNCH 07/26/16 Albuterol Inhaler [Ventolin Hfa] 2 puff INHALATION Q4H PRN PRN 06/10/17 Fluticasone Propionate [Flovent Diskus] 50 mcg NASAL BID 06/10/17 Meloxicam [Mobic] 15 mg PO DAILY 06/10/17 Oxybutynin Chloride [Ditropan Xl] 5 mg PO BID 06/10/17 Fexofenadine HCl 180 mg PO DAILY 06/05/18 Hydroxyzine HCl 25 mg PO QHS 06/05/18 Insulin Lispro [Humalog KwikPen] 10 unit SQ BIDCM 06/05/18 Levetiracetam 500 mg PO BID 06/05/18 Risperidone 3 mg PO BID 06/05/18 Baclofen 10 mg PO TID PRN PRN 06/06/18 Insulin Glargine,Hum.rec.anlog [Basaglar Kwikpen U-100] 30 unit SQ BID #5 pen 09/04/19 levoFLOXacin tablet [Levaquin tablet] 750 mg PO DAILY #4 tab 09/04/19 The following prescriptions were given: Insulin Glargine,Hum.rec.anlog [Basaglar Kwikpen U-100] 30 unit SQ BID #5 pen Transmission Status: Pending to [facility] [id number] levoFLOXacin tablet [Levaquin tablet] 750 mg PO DAILY #4 tab Transmission Status: Pending to [facility] [id number] Primary Care Physician: Alejandro Nunez DO [Primary Care Provider] - Please follow up with your Primary Care Physician in: 1-2 weeks Test Results: Test results from this visit will be discussed in further detail at your follow- up appointment, if applicable. Proposed Discharge Date: 09/04/19
--- NOTE | 2019-09-04 12:00 | DS.PCM_ITS ---
Discharge Date and Diagnosis - Problem List Patient Problems: Active and Suspected Problems (Last Updated 06/05/18 @ 21:10 by Molly Partida) Sepsis due to urinary tract infection (Acute) Severe sepsis (Acute) Altered level of consciousness (Acute) Hyperkalemia, transcellular shifts (Acute) Hyperglycemia due to type 2 diabetes mellitus (Acute) Hypoxemia (Acute) MICHELE (acute kidney injury) (Acute) Bilateral pneumonia (Acute) Date of Admission: 09/01/19 Date of Discharge: 09/04/19 - Primary Discharge Diagnosis Active and Suspected Problems (Last Updated 06/05/18 @ 21:10 by Molly Partida) Sepsis due to urinary tract infection (Acute) Severe sepsis (Acute) Altered level of consciousness (Acute) Hyperkalemia, transcellular shifts (Acute) Hyperglycemia due to type 2 diabetes mellitus (Acute) Hypoxemia (Acute) MICHELE (acute kidney injury) (Acute) Bilateral community acquired pneumonia (Acute) acute hypoxic respiratory failure - Secondary Discharge Diagnosis Chronic Problems (Last Updated 06/05/18 @ 21:10 by Molly Partida) Type II diabetes mellitus (Chronic) Depression (Chronic) Anxiety (Chronic) Peripheral neuropathy (Chronic) Ulcer of finger (Chronic) Hospital Course and Treatment Operations: None Procedures: None Summary of Care Provided: The patient is a 49 year old F with a past medical history as outlined was admitted through the ED on 09/01/2019 with a complaint of altered mental status. had found her unresponsive in bed was unable to wake her up so he called 911. However admission to the hospital she was more alert and able to answer some questions though she was confused. She admitted to having a cough but says she had not been in contact with anyone sick. She denied any fevers. White cell count was elevated and CTA done of her chest showed bilateral patchy infiltrates. Also on admission she was hypoxic with saturation down to 81%. She required 3 L of oxygen for saturations come up to 95%. Labs also showed elevated creatinine. Urine tox showed positive benzodiazepines. She was admitted and managed for severe sepsis due to bilateral pneumonia and acute hypoxic respiratory failure due to bilateral pneumonia. She was also managed for MICHELE and acute metabolic encephalopathy which was thought to be due to the severe sepsis and also likely medication induced. She was started on IV ceftriaxone and azithromycin and hydrated with IV fluids. Lactic acid was also 3.5. She was put on COVID precautions and COVID screen was ordered. Blood cultures were negative of 48 hours and respiratory panel was also negative. Urine culture grew mixed gram-positive and gram-negative organisms. Patient was gradually weaned off of oxygen. Lactic acid trended down with IV fluid hydration. CO VID screen was negative and patient was transitioned to the progressive care unit. Her mentation improved and leukocytosis resolved. Patient was discharged home on 09/04/2019 with a prescription for p.o. Levaquin 750 mg daily for 3 days to complete a 7-day course of antibiotics. Patient saturation and ambulating pulse on room air was 94% so she did not meet the requirement for home oxygen. She was discharged on 09/04/2019 with follow-up with her primary care doctor within 1 week. Patient seen and examined prior to discharge. She felt much better and had no complaints. Review systems otherwise negative. Labs and vitals reviewed. Home medication reviewed and reconciled. o/e: Vital Signs Temp Pulse Resp BP Pulse Ox 98.3 F 68 18 139/78 H 94 09/04/19 08:00 09/04/19 08:00 09/04/19 08:00 09/04/19 08:00 09/04/19 08:53 [] General: Alert, Oriented x3, Cooperative, No apparent distress HEENT: Atraumatic, PERRLA, EOMI, Normocephalic Oral: Dry Mucosa Neck: Supple, No JVD, Negative Carotid Bruits Lungs: - - clear to auscultation, on room air Cardiovascular: Regular rate, Regular Rhythm, Normal S1, Normal S2, No murmurs Abdomen: Bowel Sounds Present, Soft, Non Tender, Non-Distended, No Hepato- splenomegaly Extremities: No edema, Capillary Refill Less than 3 Seconds Skin: No rashes, No breakdown Musculoskeletal: No Tenderness to Palpation of Joints or Extremities Lymphatic: No Cervical, Supraclavicular, or Inguinal Adenopathy Neurological: Cranial nerves II-XII grossly intact, Neuro grossly intact, Motor Exam 5/5 strength throughout Psych/Mental Status: Normal Affect, Appropriate, Alert and oriented to time, place, person, mood and affect Plan is as above Patient Problems: Active and Suspected Problems (Last Updated 06/05/18 @ 21:10 by Molly Partida) Sepsis due to urinary tract infection (Acute) Severe sepsis (Acute) Altered level of consciousness (Acute) Hyperkalemia, transcellular shifts (Acute) Hyperglycemia due to type 2 diabetes mellitus (Acute) Hypoxemia (Acute) MICHELE (acute kidney injury) (Acute) Bilateral pneumonia (Acute) - Physical Exam Vitals/I&O's: Vital Signs Temp Pulse Resp BP Pulse Ox 98.3 F 68 18 139/78 H 94 09/04/19 08:00 09/04/19 08:00 09/04/19 08:00 09/04/19 08:00 09/04/19 08:53 Oxygen Flow Rate (L/min) 2 Oxygen Delivery Method Room Air Weight: 186 lb 11.704 oz Body Mass Index (BMI) 31.1 Finger Stick Blood Glucose 456 Intake and Output for Last 24 Hours 09/02/19 09/03/19 09/04/19 23:59 23:59 23:59 Intake Total 2031.67 / 2431.67 1190 / 1830 1010 / 1010 Output Total 1275 / 1275 400 / 400 Balance 756.67 / 1156.67 1190 / 1430 610 / 610 Microbiology Past 72 Hours 09/01/19 02:23 Urine, Clean Catch Urine Culture - Final Mixed Gram Pos & Gram Neg Org 09/01/19 03:16 Blood Culture (Wb) - Right Forearm Blood Culture - Preliminary No growth in 48 hours. 09/01/19 02:11 Blood Culture (Wb) - Left Forearm Blood Culture - Preliminary No growth in 48 hours. 09/01/19 05:20 Mucosa - Nasopharyngeal Respiratory Panel (PCR) - Final Laboratory Results 09/03/19 16:27: POC Glucose 72 09/03/19 21:53: POC Glucose 73 09/03/19 23:35: POC Glucose 68 L 09/04/19 00:32: POC Glucose 131 H 09/04/19 05:10: WBC 11.4 H, RBC 6.08 H, Hgb 14.6, Hct 49.8 H, MCV 81.9, MCH 24.0 L, MCHC 29.3 L, RDW Std Deviation 64.9 H, RDW Coeff of Krista 22.5 H, Plt Count 211, MPV 10.6, Immature Gran % (Auto) 0.500, Neut % (Auto) 80.1 H, Lymph % (Auto) 9.6 L, [place] % (Auto) 8.1, Eos % (Auto) 1.1, Baso % (Auto) 0.6, Absolute Neuts (auto) 9.1 H, Absolute Lymphs (auto) 1.10, Nucleated RBC % 0, Platelet Estimate ADEQUATE, Polychromasia RARE, Hypochromasia 1+, Anisocytosis 1+, Microcytosis 1+ 09/04/19 05:10: Sodium 143, Potassium 3.6, Chloride 108 H, Carbon Dioxide 29.0, Anion Gap 6, BUN 10, Creatinine 0.65, Estim Creat Clear Calc 99.57, Est GFR (MDRD) Af Amer 124, Est GFR (MDRD) Non-Af 102, BUN/Creatinine Ratio 15.4, Glucose 89, Calcium 8.7 09/04/19 06:26: POC Glucose 71 09/04/19 07:58: POC Glucose 105 Current Medications Acetaminophen (Tylenol) 650 mg PO Q6H PRN PRN PRN Reason: Pain Score 1-10/Temp > 100.7 F Last Admin: 09/02/19 23:11 Dose: 650 mg Documented by: Azithromycin (Zithromax) 500 mg PO Q24@2200 [facility] Last Admin: 09/03/19 21:57 Dose: 500 mg Documented by: Dextrose (D50w Syringe) 0 gm IV X1 PRN; Protocol PRN Reason: Hypoglycemia Glucagon () 1 mg IM .X1 PRN PRN Reason: Hypoglycemia Heparin Sodium (Porcine) (Heparin Na) 5,000 unit SC Q8 [facility] Last Admin: 09/04/19 06:18 Dose: 5,000 unit Documented by: Ceftriaxone Sodium 2 gm/ (Sodium Chloride) 50 mls @ 100 mls/hr IV Q24@2200 [facility] Last Infusion: 09/03/19 22:27 Dose: Infused Documented by: Sodium Chloride () 250 mls @ 15 mls/hr IV .[id number] PRN PRN Reason: Saline Flush Sodium Chloride () 250 mls @ 15 mls/hr IV .[id number] PRN PRN Reason: Additional IVPB Infusion Insulin Glargine (Lantus (Bk)) 30 units SC BID [facility] Last Admin: 09/04/19 09:11 Dose: 30 u Documented by: Insulin Human Lispro (Humalog Kwikpen (Bk)) 0 unit SC ACHS [facility]; Protocol Last Admin: 09/04/19 06:26 Dose: Not Given Documented by: Melatonin (Melatonin) 3 mg PO QHS PRN PRN PRN Reason: INSOMNIA Last Admin: 09/02/19 23:11 Dose: 3 mg Documented by: Ondansetron HCl (Zofran) 4 mg IV Q8H PRN PRN PRN Reason: NAUSEA/VOMITING Sodium Chloride () 10 - 40 ml IV UD PRN PRN Reason: SALINE FLUSH Last Admin: 09/03/19 21:57 Dose: 10 ml Documented by: Discharge Diet: Low fat/ Low Cholesterol Discharge Activity: Return to Normal Activity Weight Bearing Status: Weight bearing as tolerated Call your doctor if you observe: Fever of 101 or Higher, Shortness of breath, Dizziness, Fainting spells, Swelling in the ankles, Chest pain, Increased palpitations (irregular heartbeat) Home Medications: Medications to take at Discharge Lorazepam [Ativan] 2 mg PO TID PRN PRN 06/23/15 Pregabalin [Lyrica] 200 mg PO BID 10/27/15 traMADol [Ultram] 100 mg PO Q6H PRN PRN 10/27/15 Pregabalin [Lyrica] 100 mg PO LUNCH 07/26/16 Albuterol Inhaler [Ventolin Hfa] 2 puff INHALATION Q4H PRN PRN 06/10/17 Fluticasone Propionate [Flovent Diskus] 50 mcg NASAL BID 06/10/17 Meloxicam [Mobic] 15 mg PO DAILY 06/10/17 Oxybutynin Chloride [Ditropan Xl] 5 mg PO BID 06/10/17 Fexofenadine HCl 180 mg PO DAILY 06/05/18 Hydroxyzine HCl 25 mg PO QHS 06/05/18 Insulin Lispro [Humalog KwikPen] 10 unit SQ BIDCM 06/05/18 Levetiracetam 500 mg PO BID 06/05/18 Risperidone 3 mg PO BID 06/05/18 Baclofen 10 mg PO TID PRN PRN 06/06/18 Insulin Glargine,Hum.rec.anlog [Basaglar Kwikpen U-100] 30 unit SQ BID #5 pen 09/04/19 levoFLOXacin tablet [Levaquin tablet] 750 mg PO DAILY #4 tab 09/04/19 Following Prescrptions Were Given to Patient: Insulin Glargine,Hum.rec.anlog [Basaglar Festuspen U-100] 30 unit SQ BID #5 pen Transmission Status: Received by [place] [id number] levoFLOXacin tablet [Levaquin tablet] 750 mg PO DAILY #4 tab Transmission Status: Received by [facility] [address] Primary Care Physician: Alejandro Nunez DO [Primary Care Provider] - Please follow up with your Primary Care Physician in: 1-2 weeks Patient Instructions: What Is Pneumonia?, ED Confusion Disposition: Home Minutes spent on discharge:: 40 Patient Condition:: Stable Medical Necessity - Tobacco Use Smoking Status: Current every day smoker Tobacco Use: Cigarettes Meaningful Use Info Meaningful Use Diagnoses (Choose all that apply): None applicable Inpatient E&M: 59236 [facility]
[2019-09-04 12:01] LABS: Bedside Glucose 85 mg/dL (70-110)
[2019-09-04 15:13] VITALS: BP 138/70; PULSE 74; RESP 18; TEMP 37; O2SAT 98
--- NOTE | 2019-09-05 15:59 | CASEMGMT ---
RN CM Discharge Follow-up Phone Call: BRYLeanne: Liban Strata: 3 Call Date: 09/05/19 Discharge Date: 09/04/19 Time of Call: 1600 Duration: 1 min Admitting Diagnosis: MICHELE with possible covid pneumonia with AMS RN CM complete follow-up phone call after recent hospitalization. Patient states that she is doing well. No questions regarding discharge instructions. Patient was able to fill prescriptions without any issues. Patient has follow-up with PCP on 09/10
== END 2019-09-04 15:26 | disposition home or self-care (01) | DRG 720 ==
LOC: ED 04:12 → ICU 05:04 → PCU 09-03 08:00
PROVIDERS: Admitting Provider Family Medicine; Emergency Provider Emergency Medicine; PCP Student in an Organized Health Care Education/Training Program; Visit Provider Student in an Organized Health Care Education/Training Program
DX: A41.9 Sepsis, unspecified organism (principal); R65.20 Severe sepsis without septic shock; J18.9 Pneumonia, unspecified organism; N39.0 Urinary tract infection, site not specified; N17.9 Acute kidney failure, unspecified; G93.41 Metabolic encephalopathy; J96.01 Acute respiratory failure with hypoxia; M54.9 Dorsalgia, unspecified; G89.29 Other chronic pain; E11.65 Type 2 diabetes mellitus with hyperglycemia; F20.9 Schizophrenia, unspecified; Z79.4 Long term (current) use of insulin; E87.5 Hyperkalemia; F32.9 Major depressive disorder, single episode, unspecified; J98.11 Atelectasis; F41.9 Anxiety disorder, unspecified; G62.9 Polyneuropathy, unspecified; F17.210 Nicotine dependence, cigarettes, uncomplicated; Z79.1 Long term (current) use of non-steroidal anti-inflammatories (NSAID); Z90.49 Acquired absence of other specified parts of digestive tract
CPT/HCPCS: 36415; 70450; 71045; 71275; 80048; 80307; 80320; 81001; 82962; 83605; 84484; 85025; 87040; 87086; 87088; 87633; 87635; 93005; 96360; 96365; 99285; J7030; Q9967; A4216; G0480; J0696; U0004

== ENCOUNTER 2019-10-23 18:24 | Inpatient (IN) | payer MEDICAID, SELFPAY ==
[2019-09-01 05:51] VITALS: BMI 31.1
[2019-10-23] VITALS (8 sets, daily range): BP systolic 105–138; BP diastolic 61–115; PULSE 79–99; RESP 14–18; TEMP 37.2–37.3; O2SAT 89–100; BMI 17.6; BMI 26.6
--- NOTE | 2019-10-23 18:34 | ED.DCSUM_ITS ---
- ER Visit Summary Date of Service: 10/23/19 Chief Complaint: UTI History of Present Illness: The patient is a 49 F with dysuria for 2 weeks. The patient has been on Cipro for almost the whole 2 weeks from her PCP but she continues to have dysuria. Denies back pain, fevers, [employer] G[employer] WORK[employer] symptoms. Physical Examination: Afebrile and vital signs unremarkable. She has a pulse ox of 89% on room air. She says she has a history of asthma and her baseline is 88%. She denies any shortness of breath. Heart regular. Lungs clear. Abdomen soft. Back is nontender. Extremities nontender. Skin appears normal. Test Results: Labs, urinalysis, urine culture pending. Emergency Department Course and Treatment: Work-up as above. Will reassess. White count 12.3. Sodium 121 and glucose 1 1500. Corrected sodium 145. Creatinine 2.12. Urinalysis shows signs of infection. Cultures pending. Ketones negative. Nursing notified me that she had a rash in her groin. This is red and beefy with satellite lesions, I suspect a Glory infection. Patient's UTI was treated with Rocephin. Repeat glucose did show a glucose over 1500. This was repeated because the EMS machine read 500. She was started on insulin drip. I contacted the hospitalist to admit. He requested an insulin bolus 0.1/kg IV--nursing was notified. Treatment Plan: As above Disposition: Admission Impression: HHS UTI Glory skin infection perineum This note was generated with Agent Partner dictation software. It may contain incorrect words, spelling, and punctuation that were not noted in review of the chart prior to signing ED Disposition - Plan for ED Patient: Referrals: Tata Molina MD [Primary Care Provider] -
[2019-10-23 18:53] LABS: Bacteria 0 SEEN /hpf (None Seen); Mucous, Urine 0 SEEN /hpf (<or=2+)
[2019-10-23 18:54] LABS: Absolute Lymphocyte Count 0.47 X10^3/uL (0.83-4.51); Absolute Neutrophil Count 10.9 X10^3/uL (2.0-7.7); Basophil# 0.06 X10^3/uL; Basophil% 0.5 % (0-1); Eosinophil# 0.03 X10^3/uL; Eosinophils% 0.2 % (0-5); Hemoglobin 14.4 g/dL (12.0-15.0); Lymphocyte # 0.47 X10^3/ul (4.0); Lymphocyte % 3.8 % (19-41); Mean Corp Hgb Conc 24.4 g/dL (32-36); Mean Corpuscular Hgb 23.3 pg (27.0-32.0); Mean Corpuscular Volume 95.3 fL (81-99); Monocyte# 0.77 X10^3/uL; Monocyte% 6.3 % (0-10); NRBC Flagged by Analyzer 0 % (0-5); Neutrophil % 88.7 % (47-70); POSITIVE DIFFERENTIAL YES; POSITIVE MORPHOLOGY YES; Platelet Count 158 K/mm3 (150-450); RBC Distribution Width CV 20.5 % (11.6-14.6); RBC Distribution Width SD 66.7 fl (35.1-43.9); Red Blood Count 6.18 M/mm3 (4.2-5.4); White Blood Count 12.3 K/mm3 (4.4-11.0)
[2019-10-23 18:55] LABS: Color, Urine Yellow (Yellow); Glucose, Dipstick 1000 mg/dl (Normal); Ketone-Dipstick Negative (Negative); Leukocyte Esterase-Dipstick 500 /ul (Negative); Nitrite-Dipstick Negative (Negative); Occult Blood-Urine 25 /ul (Negative); Protein-Dipstick Negative (Negative); Specific Gravity, Urine 1.005 (1.002-1.030); Urine Bilirubin Dipstick Negative (Negative); Urine Clarity Sl. Cloudy (Clear); Urine Urobilinogen Normal (Normal)
[2019-10-23 18:55] LABS: Differential Indicated SCAN CRITERIA MET; Hematocrit 58.9 % (37-47)
[2019-10-23 19:02] LABS: Red Blood Cells-Urine 0-5 SEEN /hpf (0-5); Squamous Epithelial Cells - UA 0-5 SEEN /hpf (5-10); White Blood Cells 25-50 SEEN /hpf (0-5)
[2019-10-23 19:11] LABS: Anion Gap 10 (5-15); BUN 16 mg/dL (7-18); BUN/Creat Ratio 7.5 RATIO (10-20); Calcium,Total 8.6 mg/dL (8.5-10.1); Chloride 84 mmol/L (98-107); Creatinine, Serum 2.12 mg/dL (0.55-1.02); EST Glomerular Filtration Rate 26 mL/min (>60); Est Glom Filt Rate - Afr Amer 32 mL/min (>60); Potassium 4.2 mmol/L (3.5-5.1)
[2019-10-23 19:30] LABS: Anisocytosis 1+; Differential Comment SCANNED
[2019-10-23] MEDS: 0.9% Normal Saline 1,000 ML 999 ML IV ×2 (20:17→21:55)
[2019-10-23 20:25] LABS: ALB/GLOB Ratio 0.8 RATIO (0.9-2.4); AST(SGOT) 14 U/L (15-37); Alanine Aminotransfer ALT/SGPT 17 U/L (13-56); Albumin, Serum 2.9 g/dL (3.2-5.0); Alkaline Phosphatase 163 U/L (45-117); Anion Gap 10 (5-15); BUN 15 mg/dL (7-18); BUN/Creat Ratio 7.5 RATIO (10-20); Calcium,Total 8.6 mg/dL (8.5-10.1); Chloride 86 mmol/L (98-107); Creatinine, Serum 1.99 mg/dL (0.55-1.02); EST Glomerular Filtration Rate 28 mL/min (>60); Est Glom Filt Rate - Afr Amer 34 mL/min (>60); Estimated Creatinine Clearance 36.64 ml/min; Globulin 3.5 g/dL (2.2-4.2); Glucose 1538 mg/dL (74-106); Potassium 4.6 mmol/L (3.5-5.1); Protein, Total 6.4 g/dL (6.4-8.2); Sodium Level 123 mmol/L (136-145)
--- NOTE | 2019-10-23 21:20 | PCM.HP.STD ---
Problem List (1) Hyperosmolar hyponatremia Status: Acute (2) Type II diabetes mellitus Status: Chronic Qualifiers: (3) Depression Status: Chronic (4) Anxiety Status: Chronic (5) Peripheral neuropathy Status: Chronic Qualifiers: (6) Hyperglycemia Status: Acute (7) Dehydration Status: Acute (8) Leukocytosis Status: Acute (9) UTI (urinary tract infection) Status: Acute (10) Hyperkalemia, transcellular shifts Status: Inactive (11) Hyperglycemia due to type 2 diabetes mellitus Status: Acute (12) Hypoxemia Status: Acute (13) MICHELE (acute kidney injury) Status: Acute (14) Bilateral pneumonia Status: Inactive History of Present Illness Date of Admission: 10/23/19 Chief Complaint: Dysuria The patient is a 49 year old F with a significant history of schizophrenia; diabetes neuropathy who presents emergency department with dysuria. Reportedly she has been treated for 1 week with Cipro for her dysuria. At emergent department she was found to have severely elevated blood glucose but with no ketones Her perineum was found to be severely excoriated. She was given Rocephin at emergency department. At emergency department patient was incontinent and a purewick catheter and a diaper was placed. Reportedly she was hypoxic with oxygen saturation in the 70s or lower but she responded well to 2 L of nasal cannula oxygen. Past Medical History Past Medical History (Chronic Problems): Chronic Problems (Last Reviewed 10/23/19 @ 22:[address] Kurt Gore MD) Type II diabetes mellitus (Chronic) Depression (Chronic) Anxiety (Chronic) Peripheral neuropathy (Chronic) Medical History: Medical History (Last Reviewed 10/24/19 @ 00:[address] Kurt Gore MD) Fibromyalgia M79.7 Schizophrenia F20.9 Allergies Sulfa (Sulfonamide Antibiotics) Allergy (Verified 10/23/19 18:31) Hives Home Medications: Ambulatory Orders Medication Instructions Recorded Lorazepam [Ativan] 2 mg PO TID PRN PRN 06/23/15 Pregabalin [Lyrica] 200 mg PO BID 10/27/15 traMADol [Ultram] 100 mg PO Q6H PRN PRN 10/27/15 Pregabalin [Lyrica] 100 mg PO LUNCH 07/26/16 Albuterol Inhaler [Ventolin Hfa] 2 puff INHALATION Q4H PRN PRN 06/10/17 Fluticasone Propionate [Flovent 50 mcg NASAL BID 06/10/17 Diskus] Meloxicam [Mobic] 15 mg PO DAILY 06/10/17 Oxybutynin Chloride [Ditropan Xl] 5 mg PO BID 06/10/17 Fexofenadine HCl 180 mg PO DAILY 06/05/18 Hydroxyzine HCl 25 mg PO QHS 06/05/18 Insulin Lispro [Humalog KwikPen] 10 unit SQ BIDCM 06/05/18 Risperidone 3 mg PO BID 06/05/18 Baclofen 10 mg PO TID PRN PRN 06/06/18 Insulin Glargine,Hum.rec.anlog 30 unit SQ BID #5 pen 09/04/19 [Basaglar Kwikpen U-100] Surgical History: cholecystectomy, - - Tubal ligation. Psychiatric History: Anxiety, Depression [employer] History: No pertinent [employer] history Lives: Friends Smoking Status: Current every day smoker - *Family History Maternal History Items: - - Maternal history was unable to be obtained because of confusion. Paternal History Items: - - Paternal history was unable to be obtained because of confusion. Review of Systems Constitutional: Denies: Chills, Fever, Weight Change HEENT: Denies: Head Aches, Sinus Congestion, Sinus Drainage Cardiovascular: Denies: Chest Pain, Palpitations Respiratory: Denies: Cough, Shortness of breath at rest, Sputum production Gastrointestinal: Denies: Abdominal Pain, Nausea, Vomiting Genitourinary: Reports: Dysuria Musculoskeletal: Denies: Joint Pain, Joint Tenderness Skin: Denies: Rash, Wounds Neurological: Denies: Numbness, Tingling, Focal weakness Psychiatric: Denies: Anxiety, Depression, Homicidal Ideations, Suicidal Ideations Hematologic/ Lymphatic: Denies: Easy Bruising, Easy Bleeding Comment: History was limited because of confusion. VTE Information - Inpt Only VTE Present on Admission: No VTE Mechan Device Prophylaxis: None VTE Pharm Prophylaxis ordered?: Yes Patient Problems: Active and Suspected Problems (Last Reviewed 10/23/19 @ 22:[address] Kurt Groe MD) Hyperosmolar hyponatremia (Acute) - Physical Exam Vitals/I&O's: Vital Signs Temp Pulse Resp BP Pulse Ox 99.0 F 97 14 136/115 H 93 10/23/19 20:55 10/23/19 20:55 10/23/19 20:55 10/23/19 20:55 10/23/19 20:55 Oxygen Flow Rate (L/min) 2 Oxygen Delivery Method Nasal Cannula Weight: 69.4 kg Body Mass Index (BMI) 17.6 Finger Stick Blood Glucose 456 General: Confused, - - Lethargic HEENT: Atraumatic, PERRLA, EOMI, Normocephalic Neck: Supple, No JVD, Negative Carotid Bruits Lungs: Clear to auscultation, Normal air movement Cardiovascular: Regular rate, Normal S1, Normal S2, No murmurs Abdomen: Bowel Sounds Present, Soft, Non Tender Extremities: No edema, Capillary Refill Less than 3 Seconds Skin: No rashes, No breakdown, Excoriated - Perineum; and vulvovaginal area. Curdy-cheese like substance in vaginal area, - Musculoskeletal: No Tenderness to Palpation of Joints or Extremities Neurological: Cranial nerves II-XII grossly intact Psych/Mental Status: Flat Affect, Hallucinations - Visual Laboratory Results 10/23/19 18:40: Urine Color Yellow, Urine Clarity Sl. Cloudy, Urine pH 6.0, Ur Specific [place] 1.005, Urine Protein Negative, Urine Glucose (UA) 1000 H, Urine Ketones Negative, Urine Occult Blood 25 H, Urine Nitrite Negative, Urine Bilirubin Negative, Urine Urobilinogen Normal, Ur Leukocyte Esterase 500 H, Urine RBC 0-5 SEEN, Urine WBC 25-50 SEEN, Ur Squamous Epith Cells 0-5 SEEN, Urine Bacteria 0 SEEN, Urine Mucus 0 SEEN 10/23/19 18:45: WBC 12.3 H, RBC 6.18 H, Hgb 14.4, Hct 58.9 H, MCV 95.3, MCH 23.3 L, MCHC 24.4 L, RDW Std Deviation 66.7 H, RDW Coeff of Krista 20.5 H, Plt Count 158, MPV TNP, Immature Gran % (Auto) 0.500, Neut % (Auto) 88.7 H, Lymph % (Auto) 3.8 L, [place] % (Auto) 6.3, Eos % (Auto) 0.2, Baso % (Auto) 0.5, Absolute Neuts (auto) 10.9 H, Absolute Lymphs (auto) 0.47 L, Nucleated RBC % 0, Differential Comment SCANNED, Anisocytosis 1+ 10/23/19 18:45: Sodium 121 L, Potassium 4.2, Chloride 84 L, Carbon Dioxide 27.0, Anion Gap 10, BUN 16, Creatinine 2.12 H, Estim Creat Clear Calc 34.40, Est GFR (MDRD) Af Amer 32 L, Est GFR (MDRD) Non-Af 26 L, BUN/Creatinine Ratio 7.5 L, Glucose 1598 H*, Calcium 8.6 10/23/19 19:23: Sodium 123 L, Potassium 4.6, Chloride 86 L, Carbon Dioxide 27.0, Anion Gap 10, BUN 15, Creatinine 1.99 H, Estim Creat Clear Calc 36.64, Est GFR (MDRD) Af Amer 34 L, Est GFR (MDRD) Non-Af 28 L, BUN/Creatinine Ratio 7.5 L, Glucose 1538 H*, Calcium 8.6, Total Bilirubin 0.50, AST 14 L, ALT 17, Alkaline Phosphatase 163 H, Total Protein 6.4, Albumin 2.9 L, Globulin 3.5, Albumin/Globulin Ratio 0.8 L 10/23/19 19:23: Acetone Level NEGATIVE Current Medications Dextrose (D50w Syringe) 0 gm IV X1 PRN; Protocol PRN Reason: Hypoglycemia Protocol Sodium Chloride () 1,000 mls @ 999 mls/hr IV .[id number] KINJAL Stop: 10/23/19 21:40 Last Admin: 10/23/19 20:17 Dose: 999 mls/hr Documented by: Insulin Human Lispro 100 unit/ (Sodium Chloride) 100 mls @ 3.47 mls/hr CONT INF .[id number] [facility]; Protocol Ceftriaxone Sodium (Rocephin) 1 gm in 50 mls @ 100 mls/hr IV X1 ONE Stop: 10/23/19 21:22 Assessment/Plan All Active Problems (Last Reviewed 10/23/19 @ 22:[address] Kurt Gore MD) Hyperglycemia (Acute) Dehydration (Acute) Leukocytosis (Acute) UTI (urinary tract infection) (Acute) Hyperglycemia due to type 2 diabetes mellitus (Acute) Hypoxemia (Acute) MICHELE (acute kidney injury) (Acute) Hyperosmolar hyponatremia (Acute) Blind left eye (Resolved) The patient is a 49 year old F with a significant history of acute aphemia; diabetes neuropathy who presents emergency department with dysuria; and found to have severely elevated blood glucose; hyponatremia but with no ketones and with excoriated at the perineum and with curdy yeastlike substance in her vagina. [facility] Emergency Department labs were reviewed. Serum glucose was 1598 acetone level: Normal Anion gap of: 10 Sodium 121, . Corrected sodium: 145 Discussed with emergency department doctor to give insulin bolus 0.1 units/kg. Insulin drip to be started from the emergency department and continued at intensive care unit. Normal saline IV bolus given at emergency department. Half-normal saline with 20 of potassium milliequivalents ordered. BMP every 4 hours to calculate anion gap. N.p.o. for now except meds. Admitted to ICU ICU electrolyte protocol ordered A1c ordered Clerk Of Works consult. Vulvovaginal candidiasis Fluconazole p.o. x1 and nystatin powder to perineum. Review of emergency department urinalysis showed leukocyte Estrace of 500; urine white blood cells 25-50; 0-5 epithelial cells. Importantly no bacteria was seen. Follow urine culture. MICHELE Creatinine presentation was 2.12. Trended down to 1.99. Review of old records shows creatinine baseline of less than 1. Likely secondary to dehydration from [facility]. IV hydration as above. Trend BMP. Acute respiratory insufficiency Oxygen per nasal cannula to maintain oxygen saturation more than 92%. Leukocytosis Patient with neutrophilic leukocytosis with WBC of 12.3. Likely reactive from [facility]. Treat HHS as above. Trend. This is unlikely from sepsis. History of schizophrenia Because of lethargy reduce risperidone dose. Consider escalating to maximum home dose. Hold Lyrica for now. Reportedly patient lives with a friend. Case management consult. Tobacco abuse Nicotine patch ordered. DVT Prophylaxis Subcutaneous Lovenox. Inpatient E&M: 34937 Init Hosp L3
[2019-10-23] MEDS: Ceftriaxone 1 GM/50 ML BAG IV (21:25)
[2019-10-23 21:51] LABS: Bedside Glucose > 500 mg/dL (70-110)
[2019-10-23 23:11] LABS: Bedside Glucose > 500 mg/dL (70-110)
[2019-10-24] VITALS (24 sets, daily range): BP systolic 97–140; BP diastolic 59–90; PULSE 78–96; RESP 16–23; TEMP 36.4–36.7; O2SAT 94–100
[2019-10-24 00:01] LABS: Bedside Glucose > 500 mg/dL (70-110)
[2019-10-24] MEDS: FLUCONAZOLE 150 MG TABLET PO (00:15)
[2019-10-24] MEDS: Nystatin Powder 15gm Bottle 1 APPLIC TOPICAL ×4 (00:15→22:27)
[2019-10-24 00:25] LABS: Anion Gap 11 (5-15); BUN 13 mg/dL (7-18); BUN/Creat Ratio 7.3 RATIO (10-20); Calcium,Total 8.4 mg/dL (8.5-10.1); Chloride 100 mmol/L (98-107); Creatinine, Serum 1.77 mg/dL (0.55-1.02); EST Glomerular Filtration Rate 32 mL/min (>60); Est Glom Filt Rate - Afr Amer 39 mL/min (>60); Glucose 827 mg/dL (74-106); Potassium 3.5 mmol/L (3.5-5.1); Sodium Level 138 mmol/L (136-145)
--- NOTE | 2019-10-24 00:34 | NURSING ---
patient received from ED with insulin gtt infusing at 0.05units/kg/hr per ED MD order. Dr. Gore ordered insulin gtt at 0.1 units/kg/hr as inpatient insulin gtt. fingerstick obtained reading >600 and lab verification sent at 0000. New bag of insulin for inpatient order arrived and initiated at increased dose of 0.1 units/kg/hr at 0020. At 0025 lab called critical glucose of 827 which is a decrease of >700. At 0030 Dr. Gore notified of patient's drop of blood glucose and that the order for insulin gtt was doubled with admission to the ICU per his order. He stated to follow protocol for titrating. He was told that per the protocol the insulin gtt was to be decreased by 50%. He stated that was correct and to decrease the insulin gtt per hospital policy using the increased dosage. Insulin gtt adjusted at 0033
[2019-10-24 00:41] LABS: Osmolality, Serum 357 mOsm/KG (275-295)
[2019-10-24 01:57] LABS: Glucose 547 mg/dL (74-106)
[2019-10-24 02:06] LABS: Hemoglobin A1c > 16.0 % (3.8-5.6)
[2019-10-24 03:06] LABS: Bedside Glucose > 500 mg/dL (70-110)
[2019-10-24 03:06] LABS: Bedside Glucose 457 mg/dL (70-110)
[2019-10-24 03:26] LABS: Glucose 417 mg/dL (74-106)
[2019-10-24 04:27] LABS: Absolute Lymphocyte Count 2.39 X10^3/uL (0.83-4.51); Absolute Neutrophil Count 9.7 X10^3/uL (2.0-7.7); Basophil# 0.08 X10^3/uL; Basophil% 0.6 % (0-1); Eosinophils% 0.7 % (0-5); Hematocrit 48.6 % (37-47); Hemoglobin 14.1 g/dL (12.0-15.0); Lymphocyte # 2.39 X10^3/ul (4.0); Lymphocyte % 17.3 % (19-41); Mean Corpuscular Hgb 23.2 pg (27.0-32.0); Mean Corpuscular Volume 79.9 fL (81-99); Monocyte# 1.44 X10^3/uL; Monocyte% 10.4 % (0-10); NRBC Flagged by Analyzer 0 % (0-5); Neutrophil # 9.73 X10^3/uL (2.7-7.7); Neutrophil % 70.5 % (47-70); Platelet Count 161 K/mm3 (150-450); RBC Distribution Width CV 19.8 % (11.6-14.6); Red Blood Count 6.08 M/mm3 (4.2-5.4); White Blood Count 13.8 K/mm3 (4.4-11.0)
[2019-10-24 04:37] LABS: Anion Gap 10 (5-15); BUN 13 mg/dL (7-18); BUN/Creat Ratio 9.5 RATIO (10-20); Calcium,Total 8.5 mg/dL (8.5-10.1); Chloride 103 mmol/L (98-107); Creatinine, Serum 1.37 mg/dL (0.55-1.02); EST Glomerular Filtration Rate 43 mL/min (>60); Est Glom Filt Rate - Afr Amer 52 mL/min (>60); Estimated Creatinine Clearance 45.48 ml/min; Glucose 388 mg/dL (74-106); Potassium 3.3 mmol/L (3.5-5.1); Sodium Level 141 mmol/L (136-145)
[2019-10-24 05:51] LABS: Bedside Glucose 393 mg/dL (70-110)
[2019-10-24 05:51] LABS: Bedside Glucose 374 mg/dL (70-110)
[2019-10-24] MEDS: Potassium Chloride 40 MEQ in 0.45% Normal Saline 1,000 ML 150 MEQ IV (05:59)
[2019-10-24 06:50] LABS: Bedside Glucose 359 mg/dL (70-110)
--- NOTE | 2019-10-24 07:32 | PCM.PN.HOSP ---
Patient Problems: Active and Suspected Problems (Last Reviewed 10/24/19 @ 00:[address] Kurt Gore MD) Hyperosmolar hyponatremia (Acute) Reason for Visit: Follow-up on HHS/possible UTI Subjective: Patient was seen and examined. She remains confused. Alert oriented to self. No acute events overnight. Objective: Physical exam: General: Confused, - - Lethargic HEENT: Atraumatic, PERRLA, EOMI, Normocephalic Neck: Supple, No JVD, Negative Carotid Bruits Lungs: Clear to auscultation, Normal air movement Cardiovascular: Regular rate, Normal S1, Normal S2, No murmurs Abdomen: Bowel Sounds Present, Soft, Non Tender Extremities: No edema, Capillary Refill Less than 3 Seconds Skin: No rashes, No breakdown, Excoriated - Perineum; and vulvovaginal area Musculoskeletal: No Tenderness to Palpation of Joints or Extremities Neurological: Cranial nerves II-XII grossly intact Psych/Mental Status: Flat Affect, Hallucinations - Visual Vitals/I&O's: Vital Signs Temp Pulse Resp BP Pulse Ox 97.9 F 96 16 126/68 H 95 10/24/19 05:00 10/24/19 06:00 10/24/19 06:00 10/24/19 06:00 10/24/19 06:00 Oxygen Flow Rate (L/min) 2 Oxygen Delivery Method Nasal Cannula Weight: 75.1 kg Body Mass Index (BMI) 26.6 Finger Stick Blood Glucose 457 Intake and Output for Last 24 Hours 10/22/19 10/23/19 10/24/19 23:59 23:59 23:59 Intake Total 2049 1579.37 / 1579.37 Output Total 300 / 300 Balance 2049 1279.37 / 1279.37 Laboratory Results 10/23/19 18:40: Urine Color Yellow, Urine Clarity Sl. Cloudy, Urine pH 6.0, Ur Specific [place] 1.005, Urine Protein Negative, Urine Glucose (UA) 1000 H, Urine Ketones Negative, Urine Occult Blood 25 H, Urine Nitrite Negative, Urine Bilirubin Negative, Urine Urobilinogen Normal, Ur Leukocyte Esterase 500 H, Urine RBC 0-5 SEEN, Urine WBC 25-50 SEEN, Ur Squamous Epith Cells 0-5 SEEN, Urine Bacteria 0 SEEN, Urine Mucus 0 SEEN 10/23/19 18:45: WBC 12.3 H, RBC 6.18 H, Hgb 14.4, Hct 58.9 H, MCV 95.3, MCH 23.3 L, MCHC 24.4 L, RDW Std Deviation 66.7 H, RDW Coeff of Krista 20.5 H, Plt Count 158, MPV TNP, Immature Gran % (Auto) 0.500, Neut % (Auto) 88.7 H, Lymph % (Auto) 3.8 L, [place] % (Auto) 6.3, Eos % (Auto) 0.2, Baso % (Auto) 0.5, Absolute Neuts (auto) 10.9 H, Absolute Lymphs (auto) 0.47 L, Nucleated RBC % 0, Differential Comment SCANNED, Anisocytosis 1+ 10/23/19 18:45: Sodium 121 L, Potassium 4.2, Chloride 84 L, Carbon Dioxide 27.0, Anion Gap 10, BUN 16, Creatinine 2.12 H, Estim Creat Clear Calc 34.40, Est GFR (MDRD) Af Amer 32 L, Est GFR (MDRD) Non-Af 26 L, BUN/Creatinine Ratio 7.5 L, Glucose 1598 H*, Calcium 8.6 10/23/19 18:45: Hemoglobin A1c > 16.0 H 10/23/19 18:45: Serum Osmolality 357 H 10/23/19 19:23: Sodium 123 L, Potassium 4.6, Chloride 86 L, Carbon Dioxide 27.0, Anion Gap 10, BUN 15, Creatinine 1.99 H, Estim Creat Clear Calc 36.64, Est GFR (MDRD) Af Amer 34 L, Est GFR (MDRD) Non-Af 28 L, BUN/Creatinine Ratio 7.5 L, Glucose 1538 H*, Calcium 8.6, Total Bilirubin 0.50, AST 14 L, ALT 17, Alkaline Phosphatase 163 H, Total Protein 6.4, Albumin 2.9 L, Globulin 3.5, Albumin/Globulin Ratio 0.8 L 10/23/19 19:23: Acetone Level NEGATIVE 10/23/19 21:45: POC Glucose > 500 H* 10/23/19 23:03: POC Glucose > 500 H* 10/23/19 23:55: POC Glucose > 500 H* 10/24/19 00:00: Sodium 138, Potassium 3.5, Chloride 100, Carbon Dioxide 27.0, Anion Gap 11, BUN 13, Creatinine 1.77 H, Estim Creat Clear Calc 35.20, Est GFR (MDRD) Af Amer 39 L, Est GFR (MDRD) Non-Af 32 L, BUN/Creatinine Ratio 7.3 L, Glucose 827 H*, Calcium 8.4 L 10/24/19 01:27: POC Glucose > 500 H* 10/24/19 01:33: Glucose 547 H* 10/24/19 02:54: POC Glucose 457 H* 10/24/19 03:00: Glucose 417 H 10/24/19 04:00: Sodium 141, Potassium 3.3 L, Chloride 103, Carbon Dioxide 28.0, Anion Gap 10, BUN 13, Creatinine 1.37 H, Estim Creat Clear Calc 45.48, Est GFR (MDRD) Af Amer 52 L, Est GFR (MDRD) Non-Af 43 L, BUN/Creatinine Ratio 9.5 L, Glucose 388 H, Calcium 8.5 10/24/19 04:00: WBC 13.8 H, RBC 6.08 H, Hgb 14.1, Hct 48.6 H, MCV 79.9 L D, MCH 23.2 L, MCHC 29.0 L D, RDW Std Deviation 51.0 H, RDW Coeff of Krista 19.8 H, Plt Count 161, Immature Gran % (Auto) 0.500, Neut % (Auto) 70.5 H, Lymph % (Auto) 17.3 L, [place] % (Auto) 10.4 H, Eos % (Auto) 0.7, Baso % (Auto) 0.6, Absolute Neuts (auto) 9.7 H, Absolute Lymphs (auto) 2.39, Nucleated RBC % 0 10/24/19 04:48: POC Glucose 374 H 10/24/19 05:41: POC Glucose 393 H 10/24/19 06:44: POC Glucose 359 H Current Medications Acetaminophen (Tylenol) 650 mg PO Q6H PRN PRN PRN Reason: Pain Score 1-10/Temp > 100.7 F Albuterol Sulfate (Ventolin Aerosols) 2.5 mg INHALATION Q4H PRN PRN PRN Reason: SOB/WEEZING Dextrose (D50w Syringe) 0 gm IV X1 PRN; Protocol PRN Reason: HYPOGLYCEMIA Enoxaparin Sodium (Lovenox) 40 mg SC DAILY [facility] Fluticasone Propionate (Flonase Nasal [place]) 1 spray NASAL BID KINJAL Glucagon () 1 mg IM .X1 PRN PRN Reason: Hypoglycemia Hydroxyzine Pamoate (Vistaril Pamoate Capsule) 25 mg PO QHS [facility] Insulin Human Lispro 100 unit/ (Sodium Chloride) 100 mls @ 6.94 mls/hr IV .[id number] KINJAL; Protocol Last Titration: 10/24/19 06:44 Dose: 0.03 units/kg/hr, 1.9 mls/hr Documented by: Sodium Chloride () 250 mls @ 15 mls/hr IV .[id number] PRN PRN Reason: Saline Flush Potassium Chloride 40 meq/ (Sodium Chloride) 1,020 mls @ 150 mls/hr IV .[id number] KINJAL Last Admin: 10/24/19 05:59 Dose: 150 mls/hr Documented by: Loratadine (Claritin) 10 mg PO DAILY [facility] Nicotine (Nicoderm Cq (Pbkc)) 21 mg TRANSDERM. DAILY KINJAL Last Admin: 10/24/19 00:16 Dose: 21 mg Documented by: Nystatin (Mycostatin Powder) 1 applic TOPICAL TID KINJAL; Protocol Last Admin: 10/24/19 05:39 Dose: 1 applicatio Documented by: Ondansetron HCl (Zofran) 4 mg IV Q8H PRN PRN PRN Reason: NAUSEA/VOMITING Potassium Chloride (Potassium Chl Soln) 40 meq PO X1 ONE Stop: 10/24/19 12:01 Risperidone (Risperdal) 1 mg PO BID [facility] Sodium Chloride () 10 - 40 ml IV UD PRN PRN Reason: SALINE FLUSH STROKE Vital Signs/Narrative: Vital Signs Temp Pulse Resp BP Pulse Ox 10/24/19 06:00 96 16 126/68 H 95 10/24/19 05:00 97.9 F 94 23 H 127/77 H 95 10/24/19 04:45 96 10/24/19 04:00 92 16 123/69 H 96 Medical Necessity - Tobacco Use Smoking Status: Current every day smoker Assessment/Plan All Active Problems (Last Reviewed 10/24/19 @ 00:[address] Kurt Gore MD) Hyperglycemia (Acute) Dehydration (Acute) Leukocytosis (Acute) UTI (urinary tract infection) (Acute) Hyperglycemia due to type 2 diabetes mellitus (Acute) Hypoxemia (Acute) MICHELE (acute kidney injury) (Acute) Hyperosmolar hyponatremia (Acute) Blind left eye (Resolved) 1. Acute HHS, history of diabetic neuropathy, Started on insulin drip, transitioned to home Lantus Blood sugars are better controlled, continue with Lantus as well as insulin sliding scale 2. Acute metabolic encephalopathy secondary to #1. Patient is oriented to self, will continue to monitor 3. Possible Acute recurrent UTI, recent treatment for UTI Continue on IV ceftriaxone, follow-up on urine cultures 3. MICHELE secondary to #1, proving, creatinine is currently 1.13, Baseline creatinine is normal, will continue to trend with repeat labs in am 4. Hypoxia secondary to atelectasis, currently on 2 L of oxygen Wean for SPO2 more than 94%, encourage use of incentive spirometer 5. Nicotine dependence, on replacement 6. Schizophrenia, on risperidone 7. DVT prophylaxis Lovenox subcu Inpatient E&M: [id number] [facility] Hosp L3
[2019-10-24 07:49] LABS: Glucose 1598 mg/dL (74-106); Sodium Level 121 mmol/L (136-145)
[2019-10-24 07:51] LABS: Bedside Glucose 340 mg/dL (70-110)
--- NOTE | 2019-10-24 08:21 | PCM.CON.CC ---
Problem List (1) Type II diabetes mellitus Status: Chronic Qualifiers: Diabetes mellitus fdc insulin use: with intermediate frame tender use (2) Depression Status: Chronic (3) Anxiety Status: Chronic (4) Peripheral neuropathy Status: Chronic Qualifiers: (5) Dehydration Status: Acute (6) Sepsis due to urinary tract infection Status: Inactive (7) Altered level of consciousness Status: Inactive (8) Hypoxemia Status: Acute (9) MICHELE (acute kidney injury) Status: Acute Reason for Consult Date of Consultation: 10/24/19 Reason for Consultation: Hyperglycemia History of Present Illness: The patient is a 49 year old F, with past medical history listed below and known to me from previous hospitalizations, who presented to [facility] on 10/23/2019 secondary to dysuria for 2 weeks. Patient reportedly has been on ciprofloxacin by her primary care physician for this condition, but continues to have symptoms, so presented for evaluation. On presentation to the ER, patient was noted to be marginal on saturations at 89% on room air. Patient did not report any shortness of breath at that time. Laboratory work-up showed a leukocytosis of 12.3, glucose over 1500 and elevated creatinine at 2.12. Urinalysis was suggestive of infection, but patient did have what was suspected to be a candidal infection of the vulva. Patient was initiated on an insulin drip and then admitted to the intensive care unit for further monitoring. Since being in the intensive care unit, patient has responded well to an insulin drip. Patient has remained hemodynamically stable. Patient reportedly had told nursing that she felt too bad to take her insulin. Patient does have a history of schizophrenia and is unable to provide me much information this morning. Patient is unable to verify home medications, but nursing plans to call her pharmacy later this morning for verification. Past Medical History Past Medical History (Chronic Problems): Chronic Problems (Last Reviewed 10/24/19 @ 00:[address] Kurt Gore MD) Type II diabetes mellitus (Chronic) Depression (Chronic) Anxiety (Chronic) Peripheral neuropathy (Chronic) Medical History: Medical History (Last Reviewed 10/24/19 @ 00:[address] Kurt Gore MD) Fibromyalgia M79.7 Schizophrenia F20.9 Allergies Sulfa (Sulfonamide Antibiotics) Allergy (Verified 10/23/19 18:31) Hives Home Medications: Ambulatory Orders Medication Instructions Recorded Lorazepam [Ativan] 2 mg PO TID PRN PRN 06/23/15 Pregabalin [Lyrica] 200 mg PO BID 10/27/15 traMADol [Ultram] 100 mg PO Q6H PRN PRN 10/27/15 Pregabalin [Lyrica] 100 mg PO LUNCH 07/26/16 Albuterol Inhaler [Ventolin Hfa] 2 puff INHALATION Q4H PRN PRN 06/10/17 Fluticasone Propionate [Flovent 50 mcg NASAL BID 06/10/17 Diskus] Meloxicam [Mobic] 15 mg PO DAILY 06/10/17 Oxybutynin Chloride [Ditropan Xl] 5 mg PO BID 06/10/17 Fexofenadine HCl 180 mg PO DAILY 06/05/18 Hydroxyzine HCl 25 mg PO QHS 06/05/18 Insulin Lispro [Humalog KwikPen] 10 unit SQ BIDCM 06/05/18 Risperidone 3 mg PO BID 06/05/18 Baclofen 10 mg PO TID PRN PRN 06/06/18 Insulin Glargine,Hum.rec.anlog 30 unit SQ BID #5 pen 09/04/19 [Basaglar Kwikpen U-100] Surgical History: cholecystectomy, - - Tubal ligation. Psychiatric History: Anxiety, Depression PULP BLEACHER History: No pertinent PULP BLEACHER history Lives: Friends Smoking Status: Current every day smoker - *Family History Maternal History Items: - - Maternal history was unable to be obtained because of confusion. Paternal History Items: - - Paternal history was unable to be obtained because of confusion. Review of Systems Unable to obtain accurate/complete ROS d/t: Baseline schizophrenia Patient Problems: Active and Suspected Problems (Last Reviewed 10/24/19 @ 00:[address] Kurt Gore MD) Hyperosmolar hyponatremia (Acute) - Physical Exam Vitals/I&O's: Vital Signs Temp Pulse Resp BP Pulse Ox 36.6 C 93 16 126/68 H 95 10/24/19 05:00 10/24/19 07:37 10/24/19 06:00 10/24/19 06:00 10/24/19 06:00 Oxygen Flow Rate (L/min) 2 Oxygen Delivery Method Nasal Cannula Weight: 75.1 kg Body Mass Index (BMI) 26.6 Finger Stick Blood Glucose 457 Intake and Output for Last 24 Hours 10/22/19 10/23/19 10/24/19 23:59 23:59 23:59 Intake Total 2049 1581.30 / 1581.30 Output Total 300 / 300 Balance 2049 1281.30 / 1281.30 General: Alert, Cooperative, Confused, - - No conversational dyspnea HEENT: Atraumatic, PERRLA, EOMI, Normocephalic, - - No scleral icterus or injection noted. Glasses in place. Oral: No Gingival or Mucosal Lesions/ Ulcerations, Dry Mucosa Neck: Supple, No JVD, No Nodes, Trachea Midline Lungs: Clear to auscultation, Normal air movement, No rhonchi, No wheeze, No rales Cardiovascular: Regular rate, Regular Rhythm, Normal S1, Normal S2, No murmurs, No rub noted, No Gallop Abdomen: Bowel Sounds Present, Soft, Non Tender, Non-Distended Extremities: No clubbing, No cyanosis, Edema - 2-3+ bilateral lower extremities Skin: Rash Present - Significant erythema of the vulva/perineum with satellite lesions Musculoskeletal: No Tenderness to Palpation of Joints or Extremities Lymphatic: No Cervical, Supraclavicular, or Inguinal Adenopathy Neurological: Cranial nerves II-XII grossly intact, Neuro grossly intact Psych/Mental Status: Flat Affect Laboratory Results 10/23/19 18:40: Urine Color Yellow, Urine Clarity Sl. Cloudy, Urine pH 6.0, Ur Specific [place] 1.005, Urine Protein Negative, Urine Glucose (UA) 1000 H, Urine Ketones Negative, Urine Occult Blood 25 H, Urine Nitrite Negative, Urine Bilirubin Negative, Urine Urobilinogen Normal, Ur Leukocyte Esterase 500 H, Urine RBC 0-5 SEEN, Urine WBC 25-50 SEEN, Ur Squamous Epith Cells 0-5 SEEN, Urine Bacteria 0 SEEN, Urine Mucus 0 SEEN 10/23/19 18:45: WBC 12.3 H, RBC 6.18 H, Hgb 14.4, Hct 58.9 H, MCV 95.3, MCH 23.3 L, MCHC 24.4 L, RDW Std Deviation 66.7 H, RDW Coeff of Rkista 20.5 H, Plt Count 158, MPV TNP, Immature Gran % (Auto) 0.500, Neut % (Auto) 88.7 H, Lymph % (Auto) 3.8 L, [place] % (Auto) 6.3, Eos % (Auto) 0.2, Baso % (Auto) 0.5, Absolute Neuts (auto) 10.9 H, Absolute Lymphs (auto) 0.47 L, Nucleated RBC % 0, Differential Comment SCANNED, Anisocytosis 1+ 10/23/19 18:45: Sodium 121 L, Potassium 4.2, Chloride 84 L, Carbon Dioxide 27.0, Anion Gap 10, BUN 16, Creatinine 2.12 H, Estim Creat Clear Calc 34.40, Est GFR (MDRD) Af Amer 32 L, Est GFR (MDRD) Non-Af 26 L, BUN/Creatinine Ratio 7.5 L, Glucose 1598 H*, Calcium 8.6 10/23/19 18:45: Hemoglobin A1c > 16.0 H 10/23/19 18:45: Serum Osmolality 357 H 10/23/19 19:23: Sodium 123 L, Potassium 4.6, Chloride 86 L, Carbon Dioxide 27.0, Anion Gap 10, BUN 15, Creatinine 1.99 H, Estim Creat Clear Calc 36.64, Est GFR (MDRD) Af Amer 34 L, Est GFR (MDRD) Non-Af 28 L, BUN/Creatinine Ratio 7.5 L, Glucose 1538 H*, Calcium 8.6, Total Bilirubin 0.50, AST 14 L, ALT 17, Alkaline Phosphatase 163 H, Total Protein 6.4, Albumin 2.9 L, Globulin 3.5, Albumin/Globulin Ratio 0.8 L 10/23/19 19:23: Acetone Level NEGATIVE 10/23/19 21:45: POC Glucose > 500 H* 10/23/19 23:03: POC Glucose > 500 H* 10/23/19 23:55: POC Glucose > 500 H* 10/24/19 00:00: Sodium 138, Potassium 3.5, Chloride 100, Carbon Dioxide 27.0, Anion Gap 11, BUN 13, Creatinine 1.77 H, Estim Creat Clear Calc 35.20, Est GFR (MDRD) Af Amer 39 L, Est GFR (MDRD) Non-Af 32 L, BUN/Creatinine Ratio 7.3 L, Glucose 827 H*, Calcium 8.4 L 10/24/19 01:27: POC Glucose > 500 H* 10/24/19 01:33: Glucose 547 H* 10/24/19 02:54: POC Glucose 457 H* 10/24/19 03:00: Glucose 417 H 10/24/19 04:00: Sodium 141, Potassium 3.3 L, Chloride 103, Carbon Dioxide 28.0, Anion Gap 10, BUN 13, Creatinine 1.37 H, Estim Creat Clear Calc 45.48, Est GFR (MDRD) Af Amer 52 L, Est GFR (MDRD) Non-Af 43 L, BUN/Creatinine Ratio 9.5 L, Glucose 388 H, Calcium 8.5 10/24/19 04:00: WBC 13.8 H, RBC 6.08 H, Hgb 14.1, Hct 48.6 H, MCV 79.9 L D, MCH 23.2 L, MCHC 29.0 L D, RDW Std Deviation 51.0 H, RDW Coeff of Krista 19.8 H, Plt Count 161, Immature Gran % (Auto) 0.500, Neut % (Auto) 70.5 H, Lymph % (Auto) 17.3 L, [place] % (Auto) 10.4 H, Eos % (Auto) 0.7, Baso % (Auto) 0.6, Absolute Neuts (auto) 9.7 H, Absolute Lymphs (auto) 2.39, Nucleated RBC % 0 10/24/19 04:48: POC Glucose 374 H 10/24/19 05:41: POC Glucose 393 H 10/24/19 06:44: POC Glucose 359 H 10/24/19 07:44: POC Glucose 340 H 10/24/19 08:00: Sodium Pending, Potassium Pending, Chloride Pending, Carbon Dioxide Pending, Anion Gap Pending, BUN Pending, Creatinine Pending, Est GFR (MDRD) Af Amer Pending, Est GFR (MDRD) Non-Af Pending, BUN/Creatinine Ratio Pending, Glucose Pending, Calcium Pending Current Medications Acetaminophen (Tylenol) 650 mg PO Q6H PRN PRN PRN Reason: Pain Score 1-10/Temp > 100.7 F Albuterol Sulfate (Ventolin Aerosols) 2.5 mg INHALATION Q4H PRN PRN PRN Reason: SOB/WEEZING Dextrose (D50w Syringe) 0 gm IV X1 PRN; Protocol PRN Reason: HYPOGLYCEMIA Enoxaparin Sodium (Lovenox) 40 mg SC DAILY [facility] Fluticasone Propionate (Flonase Nasal [place]) 1 spray NASAL BID [facility] Glucagon () 1 mg IM .X1 PRN PRN Reason: Hypoglycemia Hydroxyzine Pamoate (Vistaril Pamoate Capsule) 25 mg PO QHS [facility] Insulin Human Lispro 100 unit/ (Sodium Chloride) 100 mls @ 6.94 mls/hr IV .[id number] [facility]; Protocol Last Titration: 10/24/19 07:45 Dose: 0.03 units/kg/hr, 1.9 mls/hr Documented by: Sodium Chloride () 250 mls @ 15 mls/hr IV .[id number] PRN PRN Reason: Saline Flush Potassium Chloride 40 meq/ (Sodium Chloride) 1,020 mls @ 150 mls/hr IV .[id number] [facility] Last Admin: 10/24/19 05:59 Dose: 150 mls/hr Documented by: Loratadine (Claritin) 10 mg PO DAILY [facility] Nicotine (Nicoderm Cq (Pbkc)) 21 mg TRANSDERM. DAILY [facility] Last Admin: 10/24/19 00:16 Dose: 21 mg Documented by: Nystatin (Mycostatin Powder) 1 applic TOPICAL TID [facility]; Protocol Last Admin: 10/24/19 05:39 Dose: 1 applicatio Documented by: Ondansetron HCl (Zofran) 4 mg IV Q8H PRN PRN PRN Reason: NAUSEA/VOMITING Potassium Chloride (Potassium Chl Soln) 40 meq PO X1 ONE Stop: 10/24/19 12:01 Risperidone (Risperdal) 1 mg PO BID [facility] Sodium Chloride () 10 - 40 ml IV UD PRN PRN Reason: SALINE FLUSH Tramadol HCl (Ultram) 100 mg PO Q6H PRN PRN PRN Reason: Pain Score 1-10/10 Assessment/Plan Active and Suspected Problems (Last Reviewed 10/24/19 @ 00:[address] Kurt Gore MD) Hyperosmolar hyponatremia (Acute) RECOMMENDATIONS: 1. Confirm home medications 2. Initiate basal insulin and discontinue insulin drip 3. Aggressive fluid resuscitation 4. Topical coverage of vaginal candidiasis 5. Increase activity as tolerated IMPRESSIONS: 1. Hyperosmolar non-ketosis syndrome/poorly controlled insulin-dependent diabetes mellitus Patient appears to be responding to insulin drip well. Once Lantus dosing can be confirmed, this can likely be initiated and insulin drip can be stopped. Unclear if this is secondary to acute infection versus noncompliance with insulin therapy. Patient is on appropriate antibiotics and antifungals. Hemoglobin A1c would suggest patient is not controlled at baseline. Would benefit from outpatient endocrine consultation 2. Acute kidney injury Clinical suspicion for prerenal etiology secondary to #1. Patient is responding well to hydration. Continue with aggressive hydration for now. Patient's corrected sodium was within normal limits on presentation. Anticipate need for potassium supplementation for hypokalemia for the next 2 to 3 days. May have an element of refeeding syndrome. 3. Acute hypoxic respiratory insufficiency Unclear etiology at this time. Patient is at high risk for diabetic complications. Will address underlying acute kidney injury and HHS and reevaluate. 4. Vulvovaginal candidiasis Patient has received antifungal therapy. Unclear if patient has an element of translocation secondary to a lack of integrity with vaginitis. Patient may need help from case management/social work for help at home. 5. Schizophrenia/tobacco abuse/poor historian Complicates care, management, recovery and prognosis. Confirm home medications and reinitiate therapy for baseline. Inpatient E&M: [id number] Init Hosp L3
[2019-10-24 08:24] LABS: Anion Gap 5 (5-15); BUN 10 mg/dL (7-18); BUN/Creat Ratio 8.8 RATIO (10-20); Calcium,Total 8.2 mg/dL (8.5-10.1); Chloride 108 mmol/L (98-107); Creatinine, Serum 1.13 mg/dL (0.55-1.02); EST Glomerular Filtration Rate 54 mL/min (>60); Est Glom Filt Rate - Afr Amer 65 mL/min (>60); Estimated Creatinine Clearance 55.14 ml/min; Glucose 323 mg/dL (74-106); Sodium Level 141 mmol/L (136-145)
--- NOTE | 2019-10-24 09:22 | CASEMGMT ---
Addendum entered by Selvin Boyd 10/24/19 12:31: Attempted to reach pt's fiance, Philip, again at this time. Philip answered the phone but then was unable to hear KIARRA SAHA and he hung up. KIARRA SAHA called back to Philip again, but he did not answer, and VM is still full, so unable to leave message for him to return call back to KIARRA SAHA. Original Note: KIARRA SAHA NOTE: Participated in ICU interdisciplinary rounds. Upon admission, glucose in 1500's. Pt is currently on an insulin gtt. Per nursing, pt is slightly confused. Call placed to pt's significant other, Philip, for KIARRA SAHA initial assessment. No answer and VM is full, so unable to leave a message at this time. CM to attempt at a later time. Pt would benefit from OP f/u @ an [facility]. CM to follow. PT/OT to eval CM/SW to follow. Ayden BSN KIARRA SAHA
[2019-10-24 09:51] LABS: Bedside Glucose 297 mg/dL (70-110)
[2019-10-24] MEDS: Fluticasone 0.05% 1 SPRAY NASAL.SRY NASAL ×2 (10:46→22:35)
[2019-10-24] MEDS: DULoxetine Hcl 30 MG Capsule PO ×2 (10:48→22:26)
[2019-10-24] MEDS: levETIRAcetam 500 MG Tablet PO ×2 (10:48→22:26)
[2019-10-24] MEDS: RisperiDONE 0.5 MG Tablet PO ×2 (10:48→22:26)
[2019-10-24] MEDS: hydrOXYzine PAM 25 MG Capsule 50 MG PO ×2 (10:48→22:26)
[2019-10-24] MEDS: Oxybutynin 5 MG Tablet PO ×2 (10:48→22:26)
[2019-10-24] MEDS: Loratadine 10 MG Tablet PO (10:49)
[2019-10-24] MEDS: Enoxaparin 40 MG/0.4 ML Syringe SC (10:49)
[2019-10-24] MEDS: Ceftriaxone 1 GM/50 ML BAG IV (10:49)
[2019-10-24] MEDS: NYSTATIN 500,000 UNIT/5 ML UDC 500000 UNIT PO ×4 (10:50→22:27)
[2019-10-24 12:06] LABS: Bedside Glucose 262 mg/dL (70-110)
[2019-10-24 12:48] LABS: Anion Gap 3 (5-15); BUN 10 mg/dL (7-18); Chloride 108 mmol/L (98-107); EST Glomerular Filtration Rate 62 mL/min (>60); Est Glom Filt Rate - Afr Amer 75 mL/min (>60); Estimated Creatinine Clearance 62.31 ml/min; Glucose 227 mg/dL (74-106); Potassium 4.6 mmol/L (3.5-5.1); Sodium Level 141 mmol/L (136-145)
[2019-10-24 16:40] LABS: Anion Gap 2 (5-15); BUN 10 mg/dL (7-18); BUN/Creat Ratio 10.6 RATIO (10-20); Calcium,Total 8.1 mg/dL (8.5-10.1); Chloride 108 mmol/L (98-107); Creatinine, Serum 0.94 mg/dL (0.55-1.02); EST Glomerular Filtration Rate 67 mL/min (>60); Est Glom Filt Rate - Afr Amer 81 mL/min (>60); Estimated Creatinine Clearance 66.28 ml/min; Glucose 237 mg/dL (74-106); Potassium 5.2 mmol/L (3.5-5.1); Sodium Level 140 mmol/L (136-145)
[2019-10-24 18:36] LABS: Bedside Glucose 234 mg/dL (70-110)
[2019-10-24] MEDS: Pregabalin 50 MG Capsule 200 MG PO (22:25)
[2019-10-24] MEDS: Doxazosin 1 MG Tablet 1.5 MG PO (22:26)
[2019-10-24] MEDS: Insulin Lispro 100 UNIT/ML INSULN.PEN SC (22:37)
[2019-10-24 22:45] LABS: Bedside Glucose 257 mg/dL (70-110)
[2019-10-25] VITALS (13 sets, daily range): BP systolic 103–129; BP diastolic 53–70; PULSE 85–104; RESP 13–20; TEMP 36.4–37.4; O2SAT 93–100; BMI 26.3
[2019-10-25 04:32] LABS: Absolute Lymphocyte Count 1.68 X10^3/uL (0.83-4.51); Absolute Neutrophil Count 9.1 X10^3/uL (2.0-7.7); Basophil# 0.05 X10^3/uL; Basophil% 0.4 % (0-1); Eosinophil# 0.33 X10^3/uL; Eosinophils% 2.7 % (0-5); Hematocrit 48.4 % (37-47); Lymphocyte # 1.68 X10^3/ul (4.0); Mean Corp Hgb Conc 28.9 g/dL (32-36); Mean Corpuscular Hgb 23.6 pg (27.0-32.0); Mean Corpuscular Volume 81.6 fL (81-99); Monocyte# 0.82 X10^3/uL; Monocyte% 6.8 % (0-10); NRBC Flagged by Analyzer 0 % (0-5); Neutrophil % 75.9 % (47-70); POSITIVE MORPHOLOGY YES; Platelet Count 169 K/mm3 (150-450); RBC Distribution Width CV 20.4 % (11.6-14.6); RBC Distribution Width SD 53.5 fl (35.1-43.9); Red Blood Count 5.93 M/mm3 (4.2-5.4)
[2019-10-25 04:33] LABS: Differential Indicated SCAN CRITERIA MET
[2019-10-25 04:54] LABS: ALB/GLOB Ratio 0.6 RATIO (0.9-2.4); AST(SGOT) 11 U/L (15-37); Alanine Aminotransfer ALT/SGPT 15 U/L (13-56); Albumin, Serum 2.1 g/dL (3.2-5.0); Alkaline Phosphatase 136 U/L (45-117); Anion Gap 7 (5-15); BUN 7 mg/dL (7-18); BUN/Creat Ratio 9.6 RATIO (10-20); Calcium,Total 8.3 mg/dL (8.5-10.1); Chloride 109 mmol/L (98-107); Creatinine, Serum 0.73 mg/dL (0.55-1.02); EST Glomerular Filtration Rate 89 mL/min (>60); Est Glom Filt Rate - Afr Amer 108 mL/min (>60); Estimated Creatinine Clearance 85.35 ml/min; Globulin 3.7 g/dL (2.2-4.2); Glucose 128 mg/dL (74-106); Potassium 3.4 mmol/L (3.5-5.1); Protein, Total 5.8 g/dL (6.4-8.2); Sodium Level 143 mmol/L (136-145)
[2019-10-25 04:59] LABS: Differential Comment SCANNED; Hypochromasia RARE; Macrocytosis 1+; Microcytosis RARE; Stomatocyte RARE
[2019-10-25] MEDS: Nystatin Powder 15gm Bottle 1 APPLIC TOPICAL ×2 (06:13→14:41)
--- NOTE | 2019-10-25 06:29 | PN_ITS ---
Subjective: Patient did well overnight. No acute issues were reported. Patient is more interactive and only confused intermittently. Blood sugars have been well controlled. No pain is reported. Patient has remained on nasal cannula, but this had to be increased overnight secondary to probable apnea per nursing. General: Alert, Cooperative, No apparent distress, Confused - Intermittently, - - More interactive today HEENT: Atraumatic, PERRLA, EOMI, Normocephalic, - - No scleral icterus or injection noted Oral: Moist Mucosa, No Gingival or Mucosal Lesions/ Ulcerations Neck: Supple, No JVD, No Nodes, Trachea Midline Lungs: No rhonchi, No wheeze, No rales, Diminished, - - Fair effort Cardiovascular: Normal S1, Normal S2, No murmurs, No rub noted, No Gallop, Tachycardic Abdomen: Bowel Sounds Present, Soft, Non Tender, Non-Distended Extremities: No clubbing, No cyanosis, Edema Skin: - - No change compared to previous Musculoskeletal: No Tenderness to Palpation of Joints or Extremities Lymphatic: No Cervical, Supraclavicular, or Inguinal Adenopathy Neurological: Cranial nerves II-XII grossly intact, Neuro grossly intact Psych/Mental Status: Normal Affect, Appropriate Vital Signs Temp Pulse Resp BP Pulse Ox 36.6 C 102 H 18 114/70 96 10/25/19 04:00 10/25/19 04:00 10/25/19 04:00 10/25/19 04:00 10/25/19 04:00 Oxygen Flow Rate (L/min) 3 Oxygen Delivery Method Nasal Cannula Weight: 74 kg Body Mass Index (BMI) 26.6 Finger Stick Blood Glucose 457 Intake and Output for Last 24 Hours 10/23/19 10/24/19 10/25/19 23:59 23:59 23:59 Intake Total 2049 3138.90 / 3138.90 120 / 120 Output Total 300 / 300 Balance 2049 2838.90 / 2838.90 120 / 120 Labs (Last 48 Hours) 10/23/19 10/23/19 10/23/19 18:40 18:45 18:45 WBC 12.3 H RBC 6.18 H Hgb 14.4 Hct 58.9 H MCV 95.3 MCH 23.3 L MCHC 24.4 L RDW Std Deviation 66.7 H RDW Coeff of Krista 20.5 H Plt Count 158 MPV TNP Immature Gran % (Auto) 0.500 Neut % (Auto) 88.7 H Lymph % (Auto) 3.8 L [place] % (Auto) 6.3 Eos % (Auto) 0.2 Baso % (Auto) 0.5 Absolute Neuts (auto) 10.9 H Absolute Lymphs (auto) 0.47 L Nucleated RBC % 0 Differential Comment SCANNED Hypochromasia Anisocytosis 1+ Microcytosis Macrocytosis Stomatocytes Sodium 121 L Potassium 4.2 Chloride 84 L Carbon Dioxide 27.0 Anion Gap 10 BUN 16 Creatinine 2.12 H Estim Creat Clear Calc 34.40 Est GFR (MDRD) Af Amer 32 L Est GFR (MDRD) Non-Af 26 L BUN/Creatinine Ratio 7.5 L Glucose 1598 H* Hemoglobin A1c Serum Osmolality Calcium 8.6 Total Bilirubin AST ALT Alkaline Phosphatase Total Protein Albumin Globulin Albumin/Globulin Ratio Urine Color Yellow Urine Clarity Sl. Cloudy Urine pH 6.0 Ur Specific [place] 1.005 Urine Protein Negative Urine Glucose (UA) 1000 H Urine Ketones Negative Urine Occult Blood 25 H Urine Nitrite Negative Urine Bilirubin Negative Urine Urobilinogen Normal Ur Leukocyte Esterase 500 H Urine RBC 0-5 SEEN Urine WBC 25-50 SEEN Ur Squamous Epith Cells 0-5 SEEN Urine Bacteria 0 SEEN Urine Mucus 0 SEEN Acetone Level POC Glucose 10/23/19 10/23/19 10/23/19 18:45 18:45 19:23 WBC RBC Hgb Hct MCV MCH MCHC RDW Std Deviation RDW Coeff of Krista Plt Count MPV Immature Gran % (Auto) Neut % (Auto) Lymph % (Auto) [place] % (Auto) Eos % (Auto) Baso % (Auto) Absolute Neuts (auto) Absolute Lymphs (auto) Nucleated RBC % Differential Comment Hypochromasia Anisocytosis Microcytosis Macrocytosis Stomatocytes Sodium 123 L Potassium 4.6 Chloride 86 L Carbon Dioxide 27.0 Anion Gap 10 BUN 15 Creatinine 1.99 H Estim Creat Clear Calc 36.64 Est GFR (MDRD) Af Amer 34 L Est GFR (MDRD) Non-Af 28 L BUN/Creatinine Ratio 7.5 L Glucose 1538 H* Hemoglobin A1c > 16.0 H Serum Osmolality 357 H Calcium 8.6 Total Bilirubin 0.50 AST 14 L ALT 17 Alkaline Phosphatase 163 H Total Protein 6.4 Albumin 2.9 L Globulin 3.5 Albumin/Globulin Ratio 0.8 L Urine Color Urine Clarity Urine pH Ur Specific [place] Urine Protein Urine Glucose (UA) Urine Ketones Urine Occult Blood Urine Nitrite Urine Bilirubin Urine Urobilinogen Ur Leukocyte Esterase Urine RBC Urine WBC Ur Squamous Epith Cells Urine Bacteria Urine Mucus Acetone Level POC Glucose 10/23/19 10/23/19 10/23/19 19:23 21:45 23:03 WBC RBC Hgb Hct MCV MCH MCHC RDW Std Deviation RDW Coeff of Krista Plt Count MPV Immature Gran % (Auto) Neut % (Auto) Lymph % (Auto) [place] % (Auto) Eos % (Auto) Baso % (Auto) Absolute Neuts (auto) Absolute Lymphs (auto) Nucleated RBC % Differential Comment Hypochromasia Anisocytosis Microcytosis Macrocytosis Stomatocytes Sodium Potassium Chloride Carbon Dioxide Anion Gap BUN Creatinine Estim Creat Clear Calc Est GFR (MDRD) Af Amer Est GFR (MDRD) Non-Af BUN/Creatinine Ratio Glucose Hemoglobin A1c Serum Osmolality Calcium Total Bilirubin AST ALT Alkaline Phosphatase Total Protein Albumin Globulin Albumin/Globulin Ratio Urine Color Urine Clarity Urine pH Ur Specific [place] Urine Protein Urine Glucose (UA) Urine Ketones Urine Occult Blood Urine Nitrite Urine Bilirubin Urine Urobilinogen Ur Leukocyte Esterase Urine RBC Urine WBC Ur Squamous Epith Cells Urine Bacteria Urine Mucus Acetone Level NEGATIVE POC Glucose > 500 H* > 500 H* 10/23/19 10/24/19 10/24/19 23:55 00:00 01:27 WBC RBC Hgb Hct MCV MCH MCHC RDW Std Deviation RDW Coeff of Krista Plt Count MPV Immature Gran % (Auto) Neut % (Auto) Lymph % (Auto) [place] % (Auto) Eos % (Auto) Baso % (Auto) Absolute Neuts (auto) Absolute Lymphs (auto) Nucleated RBC % Differential Comment Hypochromasia Anisocytosis Microcytosis Macrocytosis Stomatocytes Sodium 138 Potassium 3.5 Chloride 100 Carbon Dioxide 27.0 Anion Gap 11 BUN 13 Creatinine 1.77 H Estim Creat Clear Calc 35.20 Est GFR (MDRD) Af Amer 39 L Est GFR (MDRD) Non-Af 32 L BUN/Creatinine Ratio 7.3 L Glucose 827 H* Hemoglobin A1c Serum Osmolality Calcium 8.4 L Total Bilirubin AST ALT Alkaline Phosphatase Total Protein Albumin Globulin Albumin/Globulin Ratio Urine Color Urine Clarity Urine pH Ur Specific [place] Urine Protein Urine Glucose (UA) Urine Ketones Urine Occult Blood Urine Nitrite Urine Bilirubin Urine Urobilinogen Ur Leukocyte Esterase Urine RBC Urine WBC Ur Squamous Epith Cells Urine Bacteria Urine Mucus Acetone Level POC Glucose > 500 H* > 500 H* 10/24/19 10/24/19 10/24/19 01:33 02:54 03:00 WBC RBC Hgb Hct MCV MCH MCHC RDW Std Deviation RDW Coeff of Krista Plt Count MPV Immature Gran % (Auto) Neut % (Auto) Lymph % (Auto) [place] % (Auto) Eos % (Auto) Baso % (Auto) Absolute Neuts (auto) Absolute Lymphs (auto) Nucleated RBC % Differential Comment Hypochromasia Anisocytosis Microcytosis Macrocytosis Stomatocytes Sodium Potassium Chloride Carbon Dioxide Anion Gap BUN Creatinine Estim Creat Clear Calc Est GFR (MDRD) Af Amer Est GFR (MDRD) Non-Af BUN/Creatinine Ratio Glucose 547 H* 417 H Hemoglobin A1c Serum Osmolality Calcium Total Bilirubin AST ALT Alkaline Phosphatase Total Protein Albumin Globulin Albumin/Globulin Ratio Urine Color Urine Clarity Urine pH Ur Specific [place] Urine Protein Urine Glucose (UA) Urine Ketones Urine Occult Blood Urine Nitrite Urine Bilirubin Urine Urobilinogen Ur Leukocyte Esterase Urine RBC Urine WBC Ur Squamous Epith Cells Urine Bacteria Urine Mucus Acetone Level POC Glucose 457 H* 10/24/19 10/24/19 10/24/19 04:00 04:00 04:48 WBC 13.8 H RBC 6.08 H Hgb 14.1 Hct 48.6 H MCV 79.9 L D MCH 23.2 L MCHC 29.0 L D RDW Std Deviation 51.0 H RDW Coeff of Krista 19.8 H Plt Count 161 MPV Immature Gran % (Auto) 0.500 Neut % (Auto) 70.5 H Lymph % (Auto) 17.3 L [place] % (Auto) 10.4 H Eos % (Auto) 0.7 Baso % (Auto) 0.6 Absolute Neuts (auto) 9.7 H Absolute Lymphs (auto) 2.39 Nucleated RBC % 0 Differential Comment Hypochromasia Anisocytosis Microcytosis Macrocytosis Stomatocytes Sodium 141 Potassium 3.3 L Chloride 103 Carbon Dioxide 28.0 Anion Gap 10 BUN 13 Creatinine 1.37 H Estim Creat Clear Calc 45.48 Est GFR (MDRD) Af Amer 52 L Est GFR (MDRD) Non-Af 43 L BUN/Creatinine Ratio 9.5 L Glucose 388 H Hemoglobin A1c Serum Osmolality Calcium 8.5 Total Bilirubin AST ALT Alkaline Phosphatase Total Protein Albumin Globulin Albumin/Globulin Ratio Urine Color Urine Clarity Urine pH Ur Specific [place] Urine Protein Urine Glucose (UA) Urine Ketones Urine Occult Blood Urine Nitrite Urine Bilirubin Urine Urobilinogen Ur Leukocyte Esterase Urine RBC Urine WBC Ur Squamous Epith Cells Urine Bacteria Urine Mucus Acetone Level POC Glucose 374 H 10/24/19 10/24/19 10/24/19 05:41 06:44 07:44 WBC RBC Hgb Hct MCV MCH MCHC RDW Std Deviation RDW Coeff of Krista Plt Count MPV Immature Gran % (Auto) Neut % (Auto) Lymph % (Auto) [place] % (Auto) Eos % (Auto) Baso % (Auto) Absolute Neuts (auto) Absolute Lymphs (auto) Nucleated RBC % Differential Comment Hypochromasia Anisocytosis Microcytosis Macrocytosis Stomatocytes Sodium Potassium Chloride Carbon Dioxide Anion Gap BUN Creatinine Estim Creat Clear Calc Est GFR (MDRD) Af Amer Est GFR (MDRD) Non-Af BUN/Creatinine Ratio Glucose Hemoglobin A1c Serum Osmolality Calcium Total Bilirubin AST ALT Alkaline Phosphatase Total Protein Albumin Globulin Albumin/Globulin Ratio Urine Color Urine Clarity Urine pH Ur Specific [place] Urine Protein Urine Glucose (UA) Urine Ketones Urine Occult Blood Urine Nitrite Urine Bilirubin Urine Urobilinogen Ur Leukocyte Esterase Urine RBC Urine WBC Ur Squamous Epith Cells Urine Bacteria Urine Mucus Acetone Level POC Glucose 393 H 359 H 340 H 10/24/19 10/24/19 10/24/19 08:00 09:45 12:03 WBC RBC Hgb Hct MCV MCH MCHC RDW Std Deviation RDW Coeff of Krista Plt Count MPV Immature Gran % (Auto) Neut % (Auto) Lymph % (Auto) [place] % (Auto) Eos % (Auto) Baso % (Auto) Absolute Neuts (auto) Absolute Lymphs (auto) Nucleated RBC % Differential Comment Hypochromasia Anisocytosis Microcytosis Macrocytosis Stomatocytes Sodium 141 Potassium 5.0 Chloride 108 H Carbon Dioxide 28.0 Anion Gap 5 BUN 10 Creatinine 1.13 H Estim Creat Clear Calc 55.14 Est GFR (MDRD) Af Amer 65 Est GFR (MDRD) Non-Af 54 L BUN/Creatinine Ratio 8.8 L Glucose 323 H Hemoglobin A1c Serum Osmolality Calcium 8.2 L Total Bilirubin AST ALT Alkaline Phosphatase Total Protein Albumin Globulin Albumin/Globulin Ratio Urine Color Urine Clarity Urine pH Ur Specific [place] Urine Protein Urine Glucose (UA) Urine Ketones Urine Occult Blood Urine Nitrite Urine Bilirubin Urine Urobilinogen Ur Leukocyte Esterase Urine RBC Urine WBC Ur Squamous Epith Cells Urine Bacteria Urine Mucus Acetone Level POC Glucose 297 H 262 H 10/24/19 10/24/19 10/24/19 12:25 16:02 16:05 WBC RBC Hgb Hct MCV MCH MCHC RDW Std Deviation RDW Coeff of Krista Plt Count MPV Immature Gran % (Auto) Neut % (Auto) Lymph % (Auto) [place] % (Auto) Eos % (Auto) Baso % (Auto) Absolute Neuts (auto) Absolute Lymphs (auto) Nucleated RBC % Differential Comment Hypochromasia Anisocytosis Microcytosis Macrocytosis Stomatocytes Sodium 141 140 Potassium 4.6 5.2 H Chloride 108 H 108 H Carbon Dioxide 30.0 30.0 Anion Gap 3 L 2 L BUN 10 10 Creatinine 1.00 0.94 Estim Creat Clear Calc 62.31 66.28 Est GFR (MDRD) Af Amer 75 81 Est GFR (MDRD) Non-Af 62 67 BUN/Creatinine Ratio 10.0 10.6 Glucose 227 H 237 H Hemoglobin A1c Serum Osmolality Calcium 8.0 L 8.1 L Total Bilirubin AST ALT Alkaline Phosphatase Total Protein Albumin Globulin Albumin/Globulin Ratio Urine Color Urine Clarity Urine pH Ur Specific [place] Urine Protein Urine Glucose (UA) Urine Ketones Urine Occult Blood Urine Nitrite Urine Bilirubin Urine Urobilinogen Ur Leukocyte Esterase Urine RBC Urine WBC Ur Squamous Epith Cells Urine Bacteria Urine Mucus Acetone Level POC Glucose 234 H 10/24/19 10/25/19 10/25/19 22:29 04:20 04:20 WBC 12.0 H RBC 5.93 H Hgb 14.0 Hct 48.4 H MCV 81.6 MCH 23.6 L MCHC 28.9 L RDW Std Deviation 53.5 H RDW Coeff of Krista 20.4 H Plt Count 169 MPV Immature Gran % (Auto) 0.200 Neut % (Auto) 75.9 H Lymph % (Auto) 14.0 L [place] % (Auto) 6.8 Eos % (Auto) 2.7 Baso % (Auto) 0.4 Absolute Neuts (auto) 9.1 H Absolute Lymphs (auto) 1.68 Nucleated RBC % 0 Differential Comment SCANNED Hypochromasia RARE Anisocytosis Microcytosis RARE Macrocytosis 1+ Stomatocytes RARE Sodium 143 Potassium 3.4 L Chloride 109 H Carbon Dioxide 27.0 Anion Gap 7 BUN 7 Creatinine 0.73 Estim Creat Clear Calc 85.35 Est GFR (MDRD) Af Amer 108 Est GFR (MDRD) Non-Af 89 BUN/Creatinine Ratio 9.6 L Glucose 128 H Hemoglobin A1c Serum Osmolality Calcium 8.3 L Total Bilirubin 0.40 AST 11 L ALT 15 Alkaline Phosphatase 136 H Total Protein 5.8 L Albumin 2.1 L Globulin 3.7 Albumin/Globulin Ratio 0.6 L Urine Color Urine Clarity Urine pH Ur Specific [place] Urine Protein Urine Glucose (UA) Urine Ketones Urine Occult Blood Urine Nitrite Urine Bilirubin Urine Urobilinogen Ur Leukocyte Esterase Urine RBC Urine WBC Ur Squamous Epith Cells Urine Bacteria Urine Mucus [place]et[place] Level POC Glucose 257 H Medical Necessity - Tobacco Use Smoking Status: Current every day smoker Assessment/Plan All Active Problems (Last Reviewed 10/24/19 @ 00:[address] Kurt Gore MD) Hyperglycemia (Acute) Dehydration (Acute) Leukocytosis (Acute) UTI (urinary tract infection) (Acute) Hyperglycemia due to type 2 diabetes mellitus (Acute) Hypoxemia (Acute) MICHELE (acute kidney injury) (Acute) Hyperosmolar hyponatremia (Acute) Blind left eye (Resolved) RECOMMENDATIONS: 1. Continue home medications 2. Continue basal insulin with sliding scale insulin 3. Okay to advance diet 4. Topical coverage of vaginal candidiasis 5. Okay to leave the intensive care unit from my perspective IMPRESSIONS: 1. Hyperosmolar non-ketosis syndrome/poorly controlled insulin-dependent diabetes mellitus Patient is doing well on basal insulin with sliding scale. Will advance diet and cover as necessary. Given response to therapy, noncompliance with insulin therapy is likely contributing to elevated hemoglobin A1c. Hemoglobin A1c would suggest patient is not controlled at baseline. Would benefit from outpatient endocrine consultation 2. Acute kidney injury Resolved. Clinical suspicion for prerenal etiology secondary to #1. Patient responded well to hydration. Continue with aggressive hydration for now. Patient's corrected sodium was within normal limits on presentation. Anticipate need for potassium supplementation for hypokalemia for the next 2 to 3 days. May have an element of refeeding syndrome. Electrolyte supplementation as indicated 3. Acute hypoxic respiratory insufficiency Unclear etiology at this time. Patient is at high risk for diabetic complications. Will address underlying acute kidney injury and HHS and reevaluate. May have an element of atelectasis. Increase activity as tolerated. No cough or sputum suggestive of pneumonia at this time. 4. Vulvovaginal candidiasis Patient has received antifungal therapy. Unclear if patient has an element of translocation secondary to a lack of integrity with vaginitis. Patient may need help from case management/social work for help at home. 5. Schizophrenia/tobacco abuse/poor historian Complicates care, management, recovery and prognosis. Confirm home medications and reinitiate therapy for baseline. Inpatient E&M: 21038 Subs Hosp L3
--- NOTE | 2019-10-25 07:12 | PN_ITS ---
Patient Problems: Active and Suspected Problems (Last Reviewed 10/24/19 @ 00:[address] Kurt Gore MD) Hyperosmolar hyponatremia (Acute) Reason for Visit: Follow-up on HHS/possible UTI Subjective: Patient was seen and examined. Much awake today, oriented to self but not to place or time. She denies any new complaints. No acute events overnight Objective: Physical exam: General: Confused, - - Lethargic HEENT: Atraumatic, PERRLA, EOMI, Normocephalic Neck: Supple, No JVD, Negative Carotid Bruits Lungs: Clear to auscultation, Normal air movement Cardiovascular: Regular rate, Normal S1, Normal S2, No murmurs Abdomen: Bowel Sounds Present, Soft, Non Tender Extremities: No edema, Capillary Refill Less than 3 Seconds Skin: No rashes, No breakdown, Excoriated - Perineum; and vulvovaginal area Musculoskeletal: No Tenderness to Palpation of Joints or Extremities Neurological: Cranial nerves II-XII grossly intact Psych/Mental Status: Flat Affect, Hallucinations - Visual Vitals/I&O's: Vital Signs Temp Pulse Resp BP Pulse Ox 97.9 F 102 H 18 114/70 96 10/25/19 04:00 10/25/19 04:00 10/25/19 04:00 10/25/19 04:00 10/25/19 04:00 Oxygen Flow Rate (L/min) 3 Oxygen Delivery Method Nasal Cannula Weight: 74 kg Body Mass Index (BMI) 26.6 Finger Stick Blood Glucose 457 Intake and Output for Last 24 Hours 10/23/19 10/24/19 10/25/19 23:59 23:59 23:59 Intake Total 2049 3138.90 / 3138.90 120 / 120 Output Total 300 / 300 Balance 2049 2838.90 / 2838.90 120 / 120 Laboratory Results 10/23/19 18:45: Sodium 121 L, Glucose 1598 H* 10/24/19 07:44: POC Glucose 340 H 10/24/19 08:00: Sodium 141, Potassium 5.0, Chloride 108 H, Carbon Dioxide 28.0, Anion Gap 5, BUN 10, Creatinine 1.13 H, Estim Creat Clear Calc 55.14, Est GFR (MDRD) Af Amer 65, Est GFR (MDRD) Non-Af 54 L, BUN/Creatinine Ratio 8.8 L, Glucose 323 H, Calcium 8.2 L 10/24/19 09:45: POC Glucose 297 H 10/24/19 12:03: POC Glucose 262 H 10/24/19 12:25: Sodium 141, Potassium 4.6, Chloride 108 H, Carbon Dioxide 30.0, Anion Gap 3 L, BUN 10, Creatinine 1.00, Estim Creat Clear Calc 62.31, Est GFR (MDRD) Af Amer 75, Est GFR (MDRD) Non-Af 62, BUN/Creatinine Ratio 10.0, Glucose 227 H, Calcium 8.0 L 10/24/19 16:02: POC Glucose 234 H 10/24/19 16:05: Sodium 140, Potassium 5.2 H, Chloride 108 H, Carbon Dioxide 30.0, Anion Gap 2 L, BUN 10, Creatinine 0.94, Estim Creat Clear Calc 66.28, Est GFR (MDRD) Af Amer 81, Est GFR (MDRD) Non-Af 67, BUN/Creatinine Ratio 10.6, Glucose 237 H, Calcium 8.1 L 10/24/19 22:29: POC Glucose 257 H 10/25/19 04:20: WBC 12.0 H, RBC 5.93 H, Hgb 14.0, Hct 48.4 H, MCV 81.6, MCH 23.6 L, MCHC 28.9 L, RDW Std Deviation 53.5 H, RDW Coeff of Krista 20.4 H, Plt Count 169, Immature Gran % (Auto) 0.200, Neut % (Auto) 75.9 H, Lymph % (Auto) 14.0 L, [place] % (Auto) 6.8, Eos % (Auto) 2.7, Baso % (Auto) 0.4, Absolute Neuts (auto) 9.1 H, Absolute Lymphs (auto) 1.68, Nucleated RBC % 0, Differential Comment SCANNED, Hypochromasia RARE, Microcytosis RARE, Macrocytosis 1+, Stomatocytes RARE 10/25/19 04:20: Sodium 143, Potassium 3.4 L, Chloride 109 H, Carbon Dioxide 27.0, Anion Gap 7, BUN 7, Creatinine 0.73, Estim Creat Clear Calc 85.35, Est GFR (MDRD) Af Amer 108, Est GFR (MDRD) Non-Af 89, BUN/Creatinine Ratio 9.6 L, Glucose 128 H, Calcium 8.3 L, Total Bilirubin 0.40, AST 11 L, ALT 15, Alkaline Phosphatase 136 H, Total Protein 5.8 L, Albumin 2.1 L, Globulin 3.7, Albumin/Globulin Ratio 0.6 L Current Medications Acetaminophen (Tylenol) 650 mg PO Q6H PRN PRN PRN Reason: Pain Score 1-10/Temp > 100.7 F Albuterol Sulfate (Ventolin Aerosols) 2.5 mg INHALATION Q4H PRN PRN PRN Reason: SOB/WEEZING Dextrose (D50w Syringe) 0 gm IV X1 PRN; Protocol PRN Reason: HYPOGLYCEMIA Doxazosin Mesylate (Cardura) 1.5 mg PO QHS [facility] Last Admin: 10/24/19 22:26 Dose: 1.5 mg Documented by: Duloxetine HCl (Cymbalta) 30 mg PO BID [facility] Last Admin: 10/24/19 22:26 Dose: 30 mg Documented by: Enoxaparin Sodium (Lovenox) 40 mg SC DAILY [facility] Last Admin: 10/24/19 10:49 Dose: 40 mg Documented by: Fluticasone Propionate (Flonase Nasal [place]) 1 spray NASAL BID [facility] Last Admin: 10/24/19 22:35 Dose: 1 spray Documented by: Glucagon () 1 mg IM .X1 PRN PRN Reason: Hypoglycemia Hydroxyzine Pamoate (Vistaril Pamoate Capsule) 50 mg PO BID [facility] Last Admin: 10/24/19 22:26 Dose: 50 mg Documented by: Sodium Chloride () 250 mls @ 15 mls/hr IV .[id number] PRN PRN Reason: Saline Flush Ceftriaxone Sodium (Rocephin) 1 gm in 50 mls @ 100 mls/hr IV Q24 [facility] Last Infusion: 10/24/19 11:36 Dose: Infused Documented by: Insulin Glargine (Lantus (Bkc)) 30 units SC BID [facility] Last Admin: 10/24/19 22:29 Dose: 30 u Documented by: Insulin Human Lispro (Humalog Kwikpen (Bk)) 0 unit SC ACHS [facility]; Protocol Last Admin: 10/24/19 22:37 Dose: 3 u Documented by: Levetiracetam (Keppra Tablet) 500 mg PO BID [facility] Last Admin: 10/24/19 22:26 Dose: 500 mg Documented by: Loratadine (Claritin) 10 mg PO DAILY [facility] Last Admin: 10/24/19 10:49 Dose: 10 mg Documented by: Nicotine (Nicoderm Cq (Pbkc)) 21 mg TRANSDERM. DAILY [facility] Last Admin: 10/24/19 10:45 Dose: 21 mg Documented by: Nystatin (Mycostatin Powder) 1 applic TOPICAL TID [facility]; Protocol Last Admin: 10/25/19 06:13 Dose: 1 applicatio Documented by: Nystatin (Nystatin) 500,000 unit PO 4X/DAY [facility] Last Admin: 10/24/19 22:27 Dose: 500,000 unit Documented by: Ondansetron HCl (Zofran) 4 mg IV Q8H PRN PRN PRN Reason: NAUSEA/VOMITING Oxybutynin Chloride (Ditropan) 5 mg PO BID [facility] Last Admin: 10/24/19 22:26 Dose: 5 mg Documented by: Potassium Chloride (Potassium Chl Soln) 40 meq PO X1 ONE Stop: 10/25/19 08:01 Potassium Chloride (K-Dur) 60 meq PO X1 ONE Stop: 10/25/19 07:12 Pregabalin (Lyrica) 100 mg PO LUNCH [facility] Last Admin: 10/24/19 12:51 Dose: Not Given Documented by: Pregabalin (Lyrica) 200 mg PO BID [facility] Last Admin: 10/24/19 22:25 Dose: 200 mg Documented by: Risperidone (Risperdal) 0.5 mg PO BID [facility] Last Admin: 10/24/19 22:26 Dose: 0.5 mg Documented by: Sodium Chloride () 10 - 40 ml IV UD PRN PRN Reason: SALINE FLUSH Tramadol HCl (Ultram) 100 mg PO Q6H PRN PRN PRN Reason: Pain Score 1-10/10 STROKE Vital Signs/Narrative: Vital Signs Temp Pulse Resp BP Pulse Ox 10/25/19 04:00 97.9 F 102 H 18 114/70 96 Medical Necessity - Tobacco Use Smoking Status: Current every day smoker Assessment/Plan All Active Problems (Last Reviewed 10/24/19 @ 00:[address] Kurt Gore MD) Hyperglycemia (Acute) Dehydration (Acute) Leukocytosis (Acute) UTI (urinary tract infection) (Acute) Hyperglycemia due to type 2 diabetes mellitus (Acute) Hypoxemia (Acute) MICHELE (acute kidney injury) (Acute) Hyperosmolar hyponatremia (Acute) Blind left eye (Resolved) 1. Acute HHS, history of diabetic with neuropathy, resolved Blood sugars are improved Continue with Lantus as well as insulin sliding scale 2. Acute metabolic encephalopathy secondary to #1, resolving Continue to monitor 3. Possible Acute recurrent UTI, recent treatment for UTI Urine cultures growing mixed organisms, continue on IV ceftriaxone 4. Hypokalemia, replaced, recheck in a.m. 5. MICHELE secondary to #1, resolving creatinine is now normal, Cr 0.73 Will continue to trend with repeat labs in am 6. Hypoxia secondary to atelectasis, currently on 2 L of oxygen Wean for SPO2 more than 94%, encourage use of incentive spirometer 7. Nicotine dependence, on replacement 8. Seizure disorder, on Keppra 9. Schizophrenia, on risperidone 10. DVT prophylaxis Lovenox subcu Inpatient E&M: [id number] Subs Hosp L2
[2019-10-25 09:15] LABS: Bedside Glucose 109 mg/dL (70-110)
--- NOTE | 2019-10-25 10:13 | PCM.NTREPORT ---
Nutrition Therapy Report - History Nutrition Services has been consulted to:: Conduct nutrition education Current diet / nutrition support order:: cardiac, carbohydrate controlled - Anthropometric Measurements Height:: 5 ft 6 in Weight:: 74 kg Body Mass Index (BMI):: 26.3 - Relevant Labs Relevant Labs:: WBC 12.0 K/mm3 (4.4-11.0) H 10/25/19 04:20 RBC 5.93 M/mm3 (4.2-5.4) H 10/25/19 04:20 Hct 48.4 % (37-47) H 10/25/19 04:20 MCV 79.9 fL (81-99) L D 10/24/19 04:00 MCH 23.6 pg (27.0-32.0) L 10/25/19 04:20 MCHC 28.9 g/dL (32-36) L 10/25/19 04:20 RDW Std Deviation 53.5 fl (35.1-43.9) H 10/25/19 04:20 RDW Coeff of Krista 20.4 % (11.6-14.6) H 10/25/19 04:20 Neut % (Auto) 75.9 % (47-70) H 10/25/19 04:20 Lymph % (Auto) 14.0 % (19-41) L 10/25/19 04:20 [place] % (Auto) 10.4 % (0-10) H 10/24/19 04:00 Absolute Neuts (auto) 9.1 X10^3/uL (2.0-7.7) H 10/25/19 04:20 Absolute Lymphs (auto) 0.47 X10^3/uL (0.83-4.51) L 10/23/19 18:45 Sodium 123 mmol/L (136-145) L 10/23/19 19:23 Potassium 3.4 mmol/L (3.5-5.1) L 10/25/19 04:20 Chloride 109 mmol/L (98-107) H 10/25/19 04:20 Anion Gap 2 (5-15) L 10/24/19 16:05 Creatinine 1.13 mg/dL (0.55-1.02) H 10/24/19 08:00 Est GFR (MDRD) Af Amer 52 mL/min (>60) L 10/24/19 04:00 Est GFR (MDRD) Non-Af 54 mL/min (>60) L 10/24/19 08:00 BUN/Creatinine Ratio 9.6 RATIO (10-20) L 10/25/19 04:20 Glucose 128 mg/dL (74-106) H 10/25/19 04:20 Hemoglobin A1c > 16.0 % (3.8-5.6) H 10/23/19 18:45 Serum Osmolality 357 mOsm/KG (275-295) H 10/23/19 18:45 Calcium 8.3 mg/dL (8.5-10.1) L 10/25/19 04:20 AST 11 U/L (15-37) L 10/25/19 04:20 Alkaline Phosphatase 136 U/L (45-117) H 10/25/19 04:20 Total Protein 5.8 g/dL (6.4-8.2) L 10/25/19 04:20 Albumin 2.1 g/dL (3.2-5.0) L 10/25/19 04:20 Albumin/Globulin Ratio 0.6 RATIO (0.9-2.4) L 10/25/19 04:20 - Assessment Food / Nutrition-Related History:: Pt more awake/alert today. States she was not doing well at home since last admission in August 2019. Pt reports non-compliance w/ insulin. States she was eating less overall, w/ a higher intake of sweets when she did eat. Reports eating ~1 meal/day at times. States she was SMBG at home w/ readings ranging from 44 to high. Confirms significant wt loss since August admission. Was 186.7# on 09/04/19, CBW 163.1#- 23.6#/12.6% wt loss x < 2 months, significant for malnutrition. Good PO intake noted at breakfast this AM. - Nutrition Diagnosis Problem / Etiology / Signs & Symptoms (PES):: Inadequate oral intake related to hyperglycemia, malasie as evidenced by reported PO intake <50% estimated nutritional needs > 1 month and 23.6#/12.6% wt loss x 2 months. Evidence of Malnutrition Exists:: Yes Severe PCM:: Social & Environmental circumstances - Nutrition Intervention Nutrition Prescription:: [id number] calories/day; 65-75 g protein/day - Food / Nutrient Delivery Interventions Summary of nutrition intervention:: Nutrition education provided. Pt states she was really struggling to understand her insulin routine. Pt states she hopes to have a better understanding of insulin prior to discharge and to follow-up w/ load out supervisor routinely. Discussed CHO sources in diet- appears to have basic understanding of foods w/ CHO. Able to name a variety of foods that will raise blood sugar. Reviewed appropriate portion sizes w/ pt and meal planning w/ plate method. Will add glucerna w/ meals for additional calories/protein if consumed d/t malnutrition. Nutrition support ordered as / adjusted to:: continue CHO controlled, cardiac diet; will add 120mL glucerna w/ meals for additional calories/protein if consumed d/t evidence of malnutrition. Nutrition education provided?: Yes - see above - MNT Monitoring Further MNT monitoring and evaluation required?: Yes MNT Follow-up in:: 3-5 days
[2019-10-25] MEDS: Loratadine 10 MG Tablet PO (10:30)
[2019-10-25] MEDS: Fluticasone 0.05% 1 SPRAY NASAL.SRY NASAL (10:30)
[2019-10-25] MEDS: DULoxetine Hcl 30 MG Capsule PO ×2 (10:30→21:07)
[2019-10-25] MEDS: levETIRAcetam 500 MG Tablet PO ×2 (10:30→21:07)
[2019-10-25] MEDS: Oxybutynin 5 MG Tablet PO ×2 (10:30→21:07)
[2019-10-25] MEDS: Enoxaparin 40 MG/0.4 ML Syringe SC (10:31)
[2019-10-25] MEDS: Pregabalin 50 MG Capsule 200 MG PO ×2 (10:32→21:07)
[2019-10-25] MEDS: NYSTATIN 500,000 UNIT/5 ML UDC 500000 UNIT PO ×4 (10:32→21:06)
[2019-10-25] MEDS: RisperiDONE 0.5 MG Tablet PO ×2 (10:32→21:07)
[2019-10-25] MEDS: Ceftriaxone 1 GM/50 ML BAG IV (10:32)
[2019-10-25] MEDS: hydrOXYzine PAM 25 MG Capsule 50 MG PO ×2 (10:33→21:06)
[2019-10-25] MEDS: 0.9% Saline Lock 10 ML Syringe IV (10:33)
--- NOTE | 2019-10-25 12:10 | CASEMGMT ---
RN CM Assessment Note Intro role of CM to patient. Continues to have mild confusion. States she does take her blood glucose at home, however is not compliant with insulin. Chain Carrier feels patient has limited understanding. Attempted to contact SO, no answer. Presentation: Elevated blood glucose. Diagnosis: HHS PMH: Depression, Type II Diabetes PCP: Dr. Molina Specialists: Dr. Maynor Luciano. Appointment made with Dr. Luciano. Dec 19 @ 1300. Office will [address] pt on cancellation list for earlier appt if one becomes available. Insurance: [employer] Preferred Pharmacy: [facility] Prescription Benefit: yes LNOK: Sig Other, Philip Mckeon. Attempted call x 2. Mailbox is full and no message can be left. Living Arrangements: Lives with SO in apartment. Pt with chronic difficulty bathing, dressing. Her SO assists with care needs @ home. DME: wheeled walker, cane, wheelchair, shower chair, grab bars HHC: discussed home care on discharge. Pt is agreeable, does not have preference for agency as long as covered by [employer]. Referral faxed to [facility] for SN PT OT and SW. Awaiting their insurance review and determination. PH: [phone] FX: [phone] SW Referral: Referral placed to discuss DPOA/Living will with pt. Emergency contact is significant other. Patient DC Goals: Return home DC Plan: Home with [facility] unless SNF recommendation is given by PT/OT. Awaiting PT/OT notes for today. CM available for discharge planning coordination. Contact CM for any concerns/needs that may arise. Efrain COPPOLA RN ACM
[2019-10-25] MEDS: Insulin Lispro 100 UNIT/ML INSULN.PEN SC ×3 (12:11→21:08)
--- NOTE | 2019-10-25 12:15 | RAD_ITS ---
STUDY: X-RAY CHEST REASON FOR EXAM: Female, 49 years old. HYPOXIA TECHNIQUE: Single AP portable view of the chest. COMPARISON: Comparison is made with prior study dated September 01, 2019. FINDINGS: EKG liquids are seen. There is evidence of increased markings at the lung bases with areas of confluence. This may represent either linear atelectasis and possible bibasilar infiltrates. Follow-up is recommended. There is no demonstrated pleural abnormality. Normal size heart. Normal mediastinum and rachael. Normal visualized pulmonary arteries. There is atherosclerotic tortuosity of the aortic arch and descending thoracic aorta. Normal visualized thoracic spine. Normal visualized ribs, clavicles, and shoulders. There is no demonstrated abnormality of the visualized soft tissue structures of the upper abdomen. RAD/Chest 1 View (Portable) IMPRESSION: Increased bibasilar markings as described. This may represent either atelectasis and/or early infiltrates. Follow-up is recommended. Electronically Signed: Carlos Borges, at 14:05 EDT , Service support ,
--- NOTE | 2019-10-25 12:34 | NURSING ---
Attempted to call pt's significant other, Philip, to notify of transfer to PCU. Voicemail box was full.
[2019-10-25 16:46] LABS: Bedside Glucose 270 mg/dL (70-110)
[2019-10-25] MEDS: Doxazosin 1 MG Tablet 1.5 MG PO (21:09)
[2019-10-25 21:55] LABS: Bedside Glucose 342 mg/dL (70-110)
[2019-10-26] VITALS (13 sets, daily range): BP systolic 93–118; BP diastolic 47–62; PULSE 79–97; RESP 14–18; TEMP 36.7–37.2; O2SAT 93–96
[2019-10-26] MEDS: Insulin Lispro 100 UNIT/ML INSULN.PEN SC ×4 (06:50→22:33)
[2019-10-26 06:55] LABS: Bedside Glucose 259 mg/dL (70-110)
[2019-10-26 07:32] LABS: Absolute Lymphocyte Count 2.44 X10^3/uL (0.83-4.51); Absolute Neutrophil Count 6.1 X10^3/uL (2.0-7.7); Basophil# 0.06 X10^3/uL; Basophil% 0.6 % (0-1); Eosinophil# 0.37 X10^3/uL; Eosinophils% 3.7 % (0-5); Hematocrit 46.3 % (37-47); Hemoglobin 13.1 g/dL (12.0-15.0); Lymphocyte # 2.44 X10^3/ul (4.0); Lymphocyte % 24.3 % (19-41); Mean Corp Hgb Conc 28.3 g/dL (32-36); Mean Corpuscular Hgb 23.1 pg (27.0-32.0); Mean Corpuscular Volume 81.8 fL (81-99); Monocyte# 1.02 X10^3/uL; Monocyte% 10.2 % (0-10); NRBC Flagged by Analyzer 0 % (0-5); Neutrophil # 6.09 X10^3/uL (2.7-7.7); Neutrophil % 60.7 % (47-70); POSITIVE MORPHOLOGY YES; Platelet Count 164 K/mm3 (150-450); RBC Distribution Width SD 56.9 fl (35.1-43.9); Red Blood Count 5.66 M/mm3 (4.2-5.4)
[2019-10-26 07:33] LABS: Differential Indicated SCAN CRITERIA MET
[2019-10-26 07:57] LABS: Anisocytosis 2+; Hypochromasia 2+
[2019-10-26 08:07] LABS: ALB/GLOB Ratio 0.5 RATIO (0.9-2.4); AST(SGOT) 7 U/L (15-37); Alanine Aminotransfer ALT/SGPT 11 U/L (13-56); Albumin, Serum 1.9 g/dL (3.2-5.0); Alkaline Phosphatase 119 U/L (45-117); Anion Gap 5 (5-15); BUN 12 mg/dL (7-18); BUN/Creat Ratio 13.8 RATIO (10-20); Calcium,Total 8.4 mg/dL (8.5-10.1); Chloride 109 mmol/L (98-107); Creatinine, Serum 0.87 mg/dL (0.55-1.02); EST Glomerular Filtration Rate 73 mL/min (>60); Est Glom Filt Rate - Afr Amer 88 mL/min (>60); Estimated Creatinine Clearance 71.62 ml/min; Globulin 3.8 g/dL (2.2-4.2); Glucose 242 mg/dL (74-106); Potassium 4.3 mmol/L (3.5-5.1); Protein, Total 5.7 g/dL (6.4-8.2); Sodium Level 142 mmol/L (136-145)
--- NOTE | 2019-10-26 08:41 | PCM.PN.INT ---
Subjective: Patient did well overnight. Patient much more interactive today. Patient is reporting a headache, but states this is not atypical for her. No change from baseline from her perspective. Patient was readily admitting that she needs to do better with my diabetes. General: Alert, Oriented x3, Cooperative, No apparent distress, Well developed, Well nourished, - - No conversational dyspnea. Appears older than stated age. HEENT: Atraumatic, PERRLA, EOMI, Normocephalic, - - Left eye cloudy, but right eye normal Oral: Moist Mucosa, No Gingival or Mucosal Lesions/ Ulcerations Neck: Supple, No JVD, No Nodes, Trachea Midline Lungs: No rhonchi, No wheeze, Diminished, Rales - Right greater than left base. Cough with deep inhalation., - - Symmetric expansion. Cardiovascular: Regular rate, Regular Rhythm, Normal S1, Normal S2, No murmurs, No rub noted, No Gallop Abdomen: Bowel Sounds Present, Soft, Non Tender, Non-Distended Extremities: No clubbing, No cyanosis, Edema Skin: - - No change compared to previous Musculoskeletal: No Tenderness to Palpation of Joints or Extremities Lymphatic: No Cervical, Supraclavicular, or Inguinal Adenopathy Neurological: Cranial nerves II-XII grossly intact, Neuro grossly intact - Unchanged from previous Psych/Mental Status: Normal Affect, Appropriate Vital Signs Temp Pulse Resp BP Pulse Ox 37.2 C 87 18 102/60 94 10/26/19 03:15 10/26/19 03:15 10/26/19 03:15 10/26/19 03:15 10/26/19 03:15 Oxygen Flow Rate (L/min) 3 Oxygen Delivery Method Nasal Cannula Weight: 74 kg Body Mass Index (BMI) 26.3 Finger Stick Blood Glucose 457 Intake and Output for Last 24 Hours 10/24/19 10/25/19 10/26/19 23:59 23:59 23:59 Intake Total 3138.90 / 3138.90 200 / 200 Output Total 300 / 300 Balance 2838.90 / 2838.90 1926. 200 / 200 Labs (Last 48 Hours) 10/24/19 10/24/19 10/24/19 09:45 12:03 12:25 WBC RBC Hgb Hct MCV MCH MCHC RDW Std Deviation RDW Coeff of Krista Plt Count Immature Gran % (Auto) Neut % (Auto) Lymph % (Auto) [place] % (Auto) Eos % (Auto) Baso % (Auto) Absolute Neuts (auto) Absolute Lymphs (auto) Nucleated RBC % Differential Comment Hypochromasia Anisocytosis Microcytosis Macrocytosis Stomatocytes Sodium 141 Potassium 4.6 Chloride 108 H Carbon Dioxide 30.0 Anion Gap 3 L BUN 10 Creatinine 1.00 Estim Creat Clear Calc 62.31 Est GFR (MDRD) Af Amer 75 Est GFR (MDRD) Non-Af 62 BUN/Creatinine Ratio 10.0 Glucose 227 H Calcium 8.0 L Total Bilirubin AST ALT Alkaline Phosphatase Total Protein Albumin Globulin Albumin/Globulin Ratio POC Glucose 297 H 262 H 10/24/19 10/24/19 10/24/19 16:02 16:05 22:29 WBC RBC Hgb Hct MCV MCH MCHC RDW Std Deviation RDW Coeff of Krista Plt Count Immature Gran % (Auto) Neut % (Auto) Lymph % (Auto) [place] % (Auto) Eos % (Auto) Baso % (Auto) Absolute Neuts (auto) Absolute Lymphs (auto) Nucleated RBC % Differential Comment Hypochromasia Anisocytosis Microcytosis Macrocytosis Stomatocytes Sodium 140 Potassium 5.2 H Chloride 108 H Carbon Dioxide 30.0 Anion Gap 2 L BUN 10 Creatinine 0.94 Estim Creat Clear Calc 66.28 Est GFR (MDRD) Af Amer 81 Est GFR (MDRD) Non-Af 67 BUN/Creatinine Ratio 10.6 Glucose 237 H Calcium 8.1 L Total Bilirubin AST ALT Alkaline Phosphatase Total Protein Albumin Globulin Albumin/Globulin Ratio POC Glucose 234 H 257 H 10/25/19 10/25/19 10/25/19 04:20 04:20 08:34 WBC 12.0 H RBC 5.93 H Hgb 14.0 Hct 48.4 H MCV 81.6 MCH 23.6 L MCHC 28.9 L RDW Std Deviation 53.5 H RDW Coeff of Krista 20.4 H Plt Count 169 Immature Gran % (Auto) 0.200 Neut % (Auto) 75.9 H Lymph % (Auto) 14.0 L [place] % (Auto) 6.8 Eos % (Auto) 2.7 Baso % (Auto) 0.4 Absolute Neuts (auto) 9.1 H Absolute Lymphs (auto) 1.68 Nucleated RBC % 0 Differential Comment SCANNED Hypochromasia RARE Anisocytosis Microcytosis RARE Macrocytosis 1+ Stomatocytes RARE Sodium 143 Potassium 3.4 L Chloride 109 H Carbon Dioxide 27.0 Anion Gap 7 BUN 7 Creatinine 0.73 Estim Creat Clear Calc 85.35 Est GFR (MDRD) Af Amer 108 Est GFR (MDRD) Non-Af 89 BUN/Creatinine Ratio 9.6 L Glucose 128 H Calcium 8.3 L Total Bilirubin 0.40 AST 11 L ALT 15 Alkaline Phosphatase 136 H Total Protein 5.8 L Albumin 2.1 L Globulin 3.7 Albumin/Globulin Ratio 0.6 L POC Glucose 109 10/25/19 10/25/19 10/26/19 16:39 21:02 06:37 WBC 10.0 RBC 5.66 H Hgb 13.1 Hct 46.3 MCV 81.8 MCH 23.1 L MCHC 28.3 L RDW Std Deviation 56.9 H RDW Coeff of Krista 21.0 H Plt Count 164 Immature Gran % (Auto) 0.500 Neut % (Auto) 60.7 Lymph % (Auto) 24.3 [place] % (Auto) 10.2 H Eos % (Auto) 3.7 Baso % (Auto) 0.6 Absolute Neuts (auto) 6.1 Absolute Lymphs (auto) 2.44 Nucleated RBC % 0 Differential Comment Hypochromasia 2+ Anisocytosis 2+ Microcytosis Macrocytosis Stomatocytes Sodium Potassium Chloride Carbon Dioxide Anion Gap BUN Creatinine Estim Creat Clear Calc Est GFR (MDRD) Af Amer Est GFR (MDRD) Non-Af BUN/Creatinine Ratio Glucose Calcium Total Bilirubin AST ALT Alkaline Phosphatase Total Protein Albumin Globulin Albumin/Globulin Ratio POC Glucose 270 H 342 H 10/26/19 10/26/19 06:37 06:44 WBC RBC Hgb Hct MCV MCH MCHC RDW Std Deviation RDW Coeff of Krista Plt Count Immature Gran % (Auto) Neut % (Auto) Lymph % (Auto) [place] % (Auto) Eos % (Auto) Baso % (Auto) Absolute Neuts (auto) Absolute Lymphs (auto) Nucleated RBC % Differential Comment Hypochromasia Anisocytosis Microcytosis Macrocytosis Stomatocytes Sodium 142 Potassium 4.3 Chloride 109 H Carbon Dioxide 28.0 Anion Gap 5 BUN 12 Creatinine 0.87 Estim Creat Clear Calc 71.62 Est GFR (MDRD) Af Amer 88 Est GFR (MDRD) Non-Af 73 BUN/Creatinine Ratio 13.8 Glucose 242 H Calcium 8.4 L Total Bilirubin 0.40 AST 7 L ALT 11 L Alkaline Phosphatase 119 H Total Protein 5.7 L Albumin 1.9 L Globulin 3.8 Albumin/Globulin Ratio 0.5 L POC Glucose 259 H Microbiology 10/23/19 18:40 Urine, Clean Catch Urine Culture - Final Mixed Gram Pos & Gram Neg Org Presumptive C albicans Clinical Impression(s) from Imaging Studies Chest X-Ray 10/25/19 12:15 IMPRESSION: Increased bibasilar markings as described. This may represent either atelectasis and/or early infiltrates. Follow-up is recommended. Electronically Signed: Carlos Borges, at 14:05 EDT , Service support , Medical Necessity - Tobacco Use Smoking Status: Current every day smoker Assessment/Plan All Active Problems (Last Reviewed 10/24/19 @ 00:[address] Kurt Gore MD) Hyperglycemia (Acute) Dehydration (Acute) Leukocytosis (Acute) UTI (urinary tract infection) (Acute) Hyperglycemia due to type 2 diabetes mellitus (Acute) Hypoxemia (Acute) MICHELE (acute kidney injury) (Acute) Hyperosmolar hyponatremia (Acute) Blind left eye (Resolved) RECOMMENDATIONS: 1. Continue home medications 2. Continue to titrate basal insulin with sliding scale insulin 3. Encourage incentive spirometer 4. Topical coverage of vaginal candidiasis 5. Walking oximetry prior to discharge IMPRESSIONS: 1. Hyperosmolar non-ketosis syndrome/poorly controlled insulin-dependent diabetes mellitus Patient is doing well on basal insulin with sliding scale. Will advance diet and cover as necessary. Given response to therapy, noncompliance with insulin therapy is likely contributing to elevated hemoglobin A1c. Hemoglobin A1c would suggest patient is not controlled at baseline. Would benefit from outpatient endocrine consultation. May benefit from increased basal insulin as p.o. intake 2. Acute kidney injury Resolved. Clinical suspicion for prerenal etiology secondary to #1. Patient responded well to hydration. Continue with aggressive hydration for now. Patient's corrected sodium was within normal limits on presentation. Anticipate need for potassium supplementation for hypokalemia intermittently. May have an element of refeeding syndrome. Electrolyte supplementation as indicated 3. Acute hypoxic respiratory insufficiency Unclear etiology at this time. Patient is at high risk for diabetic complications. Will address underlying acute kidney injury and HHS and reevaluate. Chest x-ray is suggestive of atelectasis. Patient did have rales on exam that improved with deep inhalation and cough. Encourage incentive spirometer. Increase activity as tolerated. No cough, leukocytosis or sputum suggestive of pneumonia at this time. No antibiotics or steroids required from a pulmonary perspective 4. Vulvovaginal candidiasis Patient has received antifungal therapy. Unclear if patient has an element of translocation secondary to a lack of integrity with vaginitis. Patient may need help from case management/social work for help at home. 5. Schizophrenia/tobacco abuse/poor historian Complicates care, management, recovery and prognosis. Confirm home medications and reinitiate therapy for baseline. Inpatient E&M: 84203 Subs Hosp L2
[2019-10-26] MEDS: 0.9% Saline Lock 10 ML Syringe IV ×2 (09:04→11:43)
[2019-10-26] MEDS: DULoxetine Hcl 30 MG Capsule PO ×2 (09:08→22:22)
[2019-10-26] MEDS: Loratadine 10 MG Tablet PO (09:08)
[2019-10-26] MEDS: hydrOXYzine PAM 25 MG Capsule 50 MG PO ×2 (09:08→22:21)
[2019-10-26] MEDS: Enoxaparin 40 MG/0.4 ML Syringe SC (09:09)
[2019-10-26] MEDS: Oxybutynin 5 MG Tablet PO ×2 (09:09→22:27)
[2019-10-26] MEDS: levETIRAcetam 500 MG Tablet PO ×2 (09:09→22:22)
[2019-10-26] MEDS: Fluticasone 0.05% 1 SPRAY NASAL.SRY NASAL (09:09)
[2019-10-26] MEDS: RisperiDONE 0.5 MG Tablet PO (09:10)
[2019-10-26] MEDS: NYSTATIN 500,000 UNIT/5 ML UDC 500000 UNIT PO ×4 (09:10→22:41)
[2019-10-26 11:21] LABS: Bedside Glucose 242 mg/dL (70-110)
[2019-10-26] MEDS: Ceftriaxone 1 GM/50 ML BAG IV (11:41)
--- NOTE | 2019-10-26 13:01 | CASEMGMT ---
Rig Builder Helper APRIL received phone call from pt significant other Philip Mckeon. Philip expressing concerns that pt has not been doing well at home and he is concerned with her returning home. Philip states he assists pt with bathing, dressing, med administration and cooking, cleaning, and laundry but does work time signal wirer and is having a more difficult time caring for pt. Philip also stating that he is concerned as pt is weak and has fallen at home and he is fearful for her safety. Pt is to check blood sugars while he is gone but he does not feel she is able to do this either. Per Philip, pt sees Dr. Flowers at the [facility] for mental health diagosis but pt refuses to see a counselor. APRIL explained pt will have to be agreeable for placement as she is her own decision maker. APRIL met with pt in room and introduced self and role of SW. Pt is able to state where she is and that it is Tuesday. Pt is able to hold appropriate conversation with SW and she does confirm Philip's information as correct. APRIL spoke with pt regarding SNF placement. Pt initially declined need for SNF but after discussion she is more open to the idea. Written information provided on SNFs in network with pt insurance. SW also discussed home health option with pt. Pt would like to talk to Philip about d/c plan before making a plan. APRIL also spoke with pt about living will and health care POA. Pt expressing understanding and need to complete documents but pt is not ready to complete them at this time. APRIL left Rack Card with pt. SW assisted pt in calling Philip. APRIL will follow up with pt once she is able to have conversation with Philip about d/c. JULIAN Agee
--- NOTE | 2019-10-26 15:14 | PCM.PN.HOSP ---
Patient Problems: Active and Suspected Problems (Last Reviewed 10/24/19 @ 00:[address] Kurt Gore MD) Hyperosmolar hyponatremia (Acute) Reason for Visit: Follow-up on HHS/UTI Subjective: Patient was seen and examined. Complains of pain in the right foot. Denies any dizziness or palpitations. She has been reported to be lethargic. Objective: Physical exam: General: Alert oriented x3, not pale, not jaundiced HEENT: Atraumatic, PERRLA, EOMI, Normocephalic Neck: Supple, No JVD, Negative Carotid Bruits Lungs: Clear to auscultation, Normal air movement Cardiovascular: Regular rate, Normal S1, Normal S2, No murmurs Abdomen: Bowel Sounds Present, Soft, Non Tender Extremities: Bilateral lower extremity edema +1, bruise over the right foot. Skin: No rashes, No breakdown, Excoriated - Perineum; and vulvovaginal area Musculoskeletal: No Tenderness to Palpation of Joints or Extremities Neurological: Cranial nerves II-XII grossly intact Psych/Mental Status: Flat Affect, alert oriented x3 Vitals/I&O's: Vital Signs Temp Pulse Resp BP Pulse Ox 98.1 F 80 17 99/49 L 96 10/26/19 13:00 10/26/19 13:00 10/26/19 13:00 10/26/19 13:00 10/26/19 13:00 Oxygen Flow Rate (L/min) 2 Oxygen Delivery Method Nasal Cannula Weight: 74 kg Body Mass Index (BMI) 26.3 Finger Stick Blood Glucose 457 Intake and Output for Last 24 Hours 10/24/19 10/25/19 10/26/19 23:59 23:59 23:59 Intake Total 3138.90 / 3138.90 450 / 450 Output Total 300 / 300 Balance 2838.90 / 2838.90 1926.1926. 450 / 450 Microbiology Past 72 Hours 10/23/19 18:40 Urine, Clean Catch Urine Culture - Final Mixed Gram Pos & Gram Neg Org Presumptive C albicans Laboratory Results 10/25/19 16:39: POC Glucose 270 H 10/25/19 21:02: POC Glucose 342 H 10/26/19 06:37: WBC 10.0, RBC 5.66 H, Hgb 13.1, Hct 46.3, MCV 81.8, MCH 23.1 L, MCHC 28.3 L, RDW Std Deviation 56.9 H, RDW Coeff of Krista 21.0 H, Plt Count 164, Immature Gran % (Auto) 0.500, Neut % (Auto) 60.7, Lymph % (Auto) 24.3, [place] % (Auto) 10.2 H, Eos % (Auto) 3.7, Baso % (Auto) 0.6, Absolute Neuts (auto) 6.1, Absolute Lymphs (auto) 2.44, Nucleated RBC % 0, Hypochromasia 2+, Anisocytosis 2+ 10/26/19 06:37: Sodium 142, Potassium 4.3, Chloride 109 H, Carbon Dioxide 28.0, Anion Gap 5, BUN 12, Creatinine 0.87, Estim Creat Clear Calc 71.62, Est GFR (MDRD) Af Amer 88, Est GFR (MDRD) Non-Af 73, BUN/Creatinine Ratio 13.8, Glucose 242 H, Calcium 8.4 L, Total Bilirubin 0.40, AST 7 L, ALT 11 L, Alkaline Phosphatase 119 H, Total Protein 5.7 L, Albumin 1.9 L, Globulin 3.8, Albumin/Globulin Ratio 0.5 L 10/26/19 06:44: POC Glucose 259 H 10/26/19 11:06: POC Glucose 242 H Current Medications Acetaminophen (Tylenol) 650 mg PO Q6H PRN PRN PRN Reason: Pain Score 1-10/Temp > 100.7 F Albuterol Sulfate (Ventolin Aerosols) 2.5 mg INHALATION Q4H PRN PRN PRN Reason: SOB/WEEZING Dextrose (D50w Syringe) 0 gm IV X1 PRN; Protocol PRN Reason: HYPOGLYCEMIA Doxazosin Mesylate (Cardura) 1.5 mg PO QHS [facility] Last Admin: 10/25/19 21:09 Dose: 1.5 mg Documented by: Duloxetine HCl (Cymbalta) 30 mg PO BID [facility] Last Admin: 10/26/19 09:08 Dose: 30 mg Documented by: Enoxaparin Sodium (Lovenox) 40 mg SC DAILY [facility] Last Admin: 10/26/19 09:09 Dose: 40 mg Documented by: Fluticasone Propionate (Flonase Nasal [place]) 1 spray NASAL BID [facility] Last Admin: 10/26/19 09:09 Dose: 1 spray Documented by: Glucagon () 1 mg IM .X1 PRN PRN Reason: Hypoglycemia Hydroxyzine Pamoate (Vistaril Pamoate Capsule) 50 mg PO BID [facility] Last Admin: 10/26/19 09:08 Dose: 50 mg Documented by: Sodium Chloride () 250 mls @ 15 mls/hr IV .[id number] PRN PRN Reason: Saline Flush Insulin Glargine (Lantus (Bk)) 30 units SC BID [facility] Last Admin: 10/26/19 11:08 Dose: 30 u Documented by: Insulin Human Lispro (Humalog Kwikpen ([facility])) 0 unit SC ACHS [facility]; Protocol Last Admin: 10/26/19 11:08 Dose: 3 u Documented by: Levetiracetam (Keppra Tablet) 500 mg PO BID [facility] Last Admin: 10/26/19 09:09 Dose: 500 mg Documented by: Loratadine (Claritin) 10 mg PO DAILY [facility] Last Admin: 10/26/19 09:08 Dose: 10 mg Documented by: Nicotine (Nicoderm Cq (Pbkc)) 21 mg TRANSDERM. DAILY [facility] Last Admin: 10/26/19 09:10 Dose: 21 mg Documented by: Nystatin (Mycostatin Powder) 1 applic TOPICAL TID [facility]; Protocol Last Admin: 10/25/19 22:28 Dose: Not Given Documented by: Nystatin (Nystatin) 500,000 unit PO 4X/DAY [facility] Last Admin: 10/26/19 09:10 Dose: 500,000 unit Documented by: Ondansetron HCl (Zofran) 4 mg IV Q8H PRN PRN PRN Reason: NAUSEA/VOMITING Oxybutynin Chloride (Ditropan) 5 mg PO BID [facility] Last Admin: 10/26/19 09:09 Dose: 5 mg Documented by: Pregabalin (Lyrica) 100 mg PO LUNCH [facility] Last Admin: 10/26/19 11:11 Dose: Not Given Documented by: Pregabalin (Lyrica) 200 mg PO BID [facility] Last Admin: 10/26/19 10:04 Dose: Not Given Documented by: Risperidone (Risperdal) 0.25 mg PO BID [facility] Sodium Chloride () 10 - 40 ml IV UD PRN PRN Reason: SALINE FLUSH Last Admin: 10/26/19 11:43 Dose: 10 ml Documented by: Tramadol HCl (Ultram) 100 mg PO Q6H PRN PRN PRN Reason: Pain Score 1-10/10 STROKE Vital Signs/Narrative: Vital Signs Temp Pulse Resp BP Pulse Ox 10/26/19 13:00 98.1 F 80 17 99/49 L 96 Medical Necessity - Tobacco Use Smoking Status: Current every day smoker Assessment/Plan All Active Problems (Last Reviewed 10/24/19 @ 00:[address] Kurt Gore MD) Hyperglycemia (Acute) Dehydration (Acute) Leukocytosis (Acute) UTI (urinary tract infection) (Acute) Hyperglycemia due to type 2 diabetes mellitus (Acute) Hypoxemia (Acute) MICHELE (acute kidney injury) (Acute) Hyperosmolar hyponatremia (Acute) Blind left eye (Resolved) 1. Acute nondisplaced fracture of the right proximal second metatarsal shaft, Podiatry consulted, pain is fairly controlled Will hold off started on oxycodone in the light of ongoing lethargy We will continue with scheduled Tylenol 1000 mg every 8h 2. Acute HHS, history of diabetic with neuropathy, resolved Blood sugars remain uncontrolled, on Lantus 30 units twice daily Will increase to Lantus 34 units twice daily, continue with insulin sliding scale 3. Acute metabolic encephalopathy secondary to #1, resolving Continue to monitor 3. Acute recurrent UTI, recent treatment for UTI Urine cultures growing mixed organisms, We will discontinue IV ceftriaxone as patient has completed 3 days treatment for acute uncomplicated UTI 4. Hypokalemia, resolved 5. MICHELE secondary to #1, resolved, creatinine is normal Repeat blood work in a.m. 6. Hypoxia secondary to atelectasis, improving, Encourage use of incentive spirometer 7. Nicotine dependence, on replacement 8. Seizure disorder, on Keppra 9. Schizophrenia, on risperidone We will decrease risperidone to 0.25 mg twice daily in the light of lethargy. 10. DVT prophylaxis Lovenox subcu Inpatient E&M: 14401 Subs Hosp L2
[2019-10-26] MEDS: Nystatin Powder 15gm Bottle 1 APPLIC TOPICAL ×2 (15:27→22:41)
[2019-10-26] MEDS: Furosemide 20 MG/2 ML VIAL IV (16:03)
--- NOTE | 2019-10-26 16:16 | CASEMGMT ---
Social Work Note SW in to speak with pt to confirm discharge plans. Pt is alert and orientated x3. Pt states I am going home and then will make an appointment with one of the SNF and then decide if I will go to one. APRIL explained that it is a long process to get to SNF from home and it takes a while but explained that [facility] could get pre-cert under insurance and could get pt to SNF next week. Pt states I have made of my mind I am going home. APRIL asked pt if her significant other Philip is ok with her returning home as he had concerns with her returning home. Pt states 'Oh yeah he's fine with it. SW again informed pt that process could be started with SNF and then come Tuesday if she changes her mind she could always return home but pt denied SNF at this time states again she is going home at discharge. APRIL updated RN CM and APRIL on floor that pt wishes to discharge home. Celeste Walton INTERVENTIONAL PAIN PHYSICIAN, [employer]
--- NOTE | 2019-10-26 16:22 | NURSING ---
this RN assuming care of pt at this time. report received from Twyla George RN
--- NOTE | 2019-10-26 16:27 | CASEMGMT ---
KIARRA SAHA NOTE: Call placed to [facility] and spoke w/Madie. Madie states they are able to accept pt. She was made aware pt is not discharging today, but anticipate she will d/c over the weekend. [facility] to be notified when pt is discharged. D/C instructions and summary to be faxed to [facility] at discharge as well. Ayden COPPOLA RN CM
[2019-10-26 16:35] LABS: Bedside Glucose 275 mg/dL (70-110)
--- NOTE | 2019-10-26 16:55 | RAD_ITS ---
STUDY: X-RAY - RIGHT FOOT CLINICAL: Female, 49 years old. right foot pain and bruising after fall TECHNIQUE: 3 view(s) of the foot. COMPARISON: None. FINDINGS: Normal talus, calcaneus, and tarsal bones. Normal visualized subtalar, talonavicular, calcaneocuboid, tarsal and tarsometatarsal articulations. Obliquely oriented fracture through the proximal second metatarsal shaft without appreciable displacement of fracture fragments Normal metatarsophalangeal joint of the great toe. Normal tibial and fibular sesamoid bones. Normal interphalangeal joint of the great toe. Normal phalanges of the great toe. Normal second through fifth metatarsophalangeal joints. Normal interphalangeal joints and phalanges of the lesser toes. Diffuse soft tissue swelling of the dorsal surface of foot.. RAD/Foot min 3 Views IMPRESSION: Acute nondisplaced fracture through the proximal shaft of the second metatarsal Electronically Signed: Luther Santos MD at 17:15 EDT , Service support ,
[2019-10-26] MEDS: Doxazosin 1 MG Tablet 1.5 MG PO (22:23)
[2019-10-26] MEDS: RisperiDONE 0.25 MG Tablet PO (22:30)
[2019-10-26] MEDS: Acetaminophen 500 MG Tablet 1000 MG PO (22:30)
[2019-10-26 22:50] LABS: Bedside Glucose 430 mg/dL (70-110)
[2019-10-27] VITALS (7 sets, daily range): BP systolic 99–124; BP diastolic 56–67; PULSE 72–81; RESP 16–18; TEMP 36.6–37.1; O2SAT 93–97
[2019-10-27] MEDS: Nystatin Powder 15gm Bottle 1 APPLIC TOPICAL (05:29)
[2019-10-27] MEDS: Acetaminophen 500 MG Tablet 1000 MG PO ×2 (05:30→13:22)
[2019-10-27 06:46] LABS: Bedside Glucose 99 mg/dL (70-110)
--- NOTE | 2019-10-27 07:30 | PCM.PN.PUL ---
Patient Problems: Active and Suspected Problems (Last Reviewed 10/24/19 @ 00:[address] Kurt Gore MD) Hyperosmolar hyponatremia (Acute) Subjective: Patient with significant improvement in oxygen demands over the last 24 hours. Patient is reporting foot pain, but otherwise feels she is doing well. Patient is not reporting any dyspnea or chest pain. - Physical Exam Vitals/I&O's: Vital Signs Temp Pulse Resp BP Pulse Ox 37.1 C 72 17 124/67 H 97 10/27/19 03:40 10/27/19 06:54 10/27/19 03:40 10/27/19 03:40 10/27/19 03:40 Oxygen Flow Rate (L/min) 2 Oxygen Delivery Method Nasal Cannula Weight: 74 kg Body Mass Index (BMI) 26.3 Finger Stick Blood Glucose 457 Intake and Output for Last 24 Hours 10/25/19 10/26/19 10/27/19 23:59 23:59 23:59 Intake Total 1927.12 / 192.12 950 / 950 1200 / 1200 Output Total 2395 / 2395 Balance 1927.12 / 192.12 950 / 950 -1195 / -1195 General: Alert, Cooperative, No apparent distress, - - Speaking in full sentences. HEENT: Atraumatic, PERRLA, EOMI, Normocephalic, - - No scleral icterus or injection noted. Glasses in place. Oral: Moist Mucosa, No Gingival or Mucosal Lesions/ Ulcerations Neck: Supple, No JVD, No Nodes, Trachea Midline Lungs: No rhonchi, No wheeze, No rales, Diminished, - - Symmetric expansion. No dullness to percussion. Cardiovascular: Regular rate, Regular Rhythm, Normal S1, Normal S2, No murmurs, No rub noted, No Gallop Abdomen: Bowel Sounds Present, Soft, Non Tender, Non-Distended Extremities: No clubbing, No cyanosis, Edema - Trace Skin: - - No change compared to previous Musculoskeletal: No Tenderness to Palpation of Joints or Extremities Lymphatic: No Cervical, Supraclavicular, or Inguinal Adenopathy Neurological: Cranial nerves II-XII grossly intact, Neuro grossly intact, Motor Exam 5/5 strength throughout Psych/Mental Status: Normal Affect, Appropriate Microbiology Past 72 Hours 10/23/19 18:40 Urine, Clean Catch Urine Culture - Final Mixed Gram Pos & Gram Neg Org Presumptive C albicans Laboratory Results 10/26/19 06:37: WBC 10.0, RBC 5.66 H, Hgb 13.1, Hct 46.3, MCV 81.8, MCH 23.1 L, MCHC 28.3 L, RDW Std Deviation 56.9 H, RDW Coeff of Krista 21.0 H, Plt Count 164, Immature Gran % (Auto) 0.500, Neut % (Auto) 60.7, Lymph % (Auto) 24.3, [place] % (Auto) 10.2 H, Eos % (Auto) 3.7, Baso % (Auto) 0.6, Absolute Neuts (auto) 6.1, Absolute Lymphs (auto) 2.44, Nucleated RBC % 0, Hypochromasia 2+, Anisocytosis 2+ 10/26/19 06:37: Sodium 142, Potassium 4.3, Chloride 109 H, Carbon Dioxide 28.0, Anion Gap 5, BUN 12, Creatinine 0.87, Estim Creat Clear Calc 71.62, Est GFR (MDRD) Af Amer 88, Est GFR (MDRD) Non-Af 73, BUN/Creatinine Ratio 13.8, Glucose 242 H, Calcium 8.4 L, Total Bilirubin 0.40, AST 7 L, ALT 11 L, Alkaline Phosphatase 119 H, Total Protein 5.7 L, Albumin 1.9 L, Globulin 3.8, Albumin/Globulin Ratio 0.5 L 10/26/19 11:06: POC Glucose 242 H 10/26/19 16:01: POC Glucose 275 H 10/26/19 22:19: POC Glucose 430 H 10/27/19 06:38: POC Glucose 99 Current Medications Acetaminophen (Tylenol) 1,000 mg PO TID [facility] Last Admin: 10/27/19 05:30 Dose: 1,000 mg Documented by: Albuterol Sulfate (Ventolin Aerosols) 2.5 mg INHALATION Q4H PRN PRN PRN Reason: SOB/WEEZING Dextrose (D50w Syringe) 0 gm IV X1 PRN; Protocol PRN Reason: HYPOGLYCEMIA Doxazosin Mesylate (Cardura) 1.5 mg PO QHS [facility] Last Admin: 10/26/19 22:23 Dose: 1.5 mg Documented by: Duloxetine HCl (Cymbalta) 30 mg PO BID [facility] Last Admin: 10/26/19 22:22 Dose: 30 mg Documented by: Enoxaparin Sodium (Lovenox) 40 mg SC DAILY [facility] Last Admin: 10/26/19 09:09 Dose: 40 mg Documented by: Fluticasone Propionate (Flonase Nasal [place]) 1 spray NASAL BID [facility] Last Admin: 10/26/19 22:22 Dose: Not Given Documented by: Glucagon () 1 mg IM .X1 PRN PRN Reason: Hypoglycemia Hydroxyzine Pamoate (Vistaril Pamoate Capsule) 50 mg PO BID [facility] Last Admin: 10/26/19 22:21 Dose: 50 mg Documented by: Sodium Chloride () 250 mls @ 15 mls/hr IV .[id number] PRN PRN Reason: Saline Flush Insulin Glargine (Lantus ([facility])) 34 units SC BID [facility] Last Admin: 10/26/19 22:32 Dose: 34 units Documented by: Insulin Human Lispro (Humalog Kwikpen ([facility])) 0 unit SC ACHS [facility]; Protocol Last Admin: 10/27/19 06:45 Dose: Not Given Documented by: Levetiracetam (Keppra Tablet) 500 mg PO BID [facility] Last Admin: 10/26/19 22:22 Dose: 500 mg Documented by: Loratadine (Claritin) 10 mg PO DAILY [facility] Last Admin: 10/26/19 09:08 Dose: 10 mg Documented by: Nicotine (Nicoderm Cq (Pbkc)) 21 mg TRANSDERM. DAILY [facility] Last Admin: 10/26/19 09:10 Dose: 21 mg Documented by: Nystatin (Mycostatin Powder) 1 applic TOPICAL TID [facility]; Protocol Last Admin: 10/27/19 05:29 Dose: 1 applicatio Documented by: Nystatin (Nystatin) 500,000 unit PO 4X/DAY [facility] Last Admin: 10/26/19 22:41 Dose: 500,000 unit Documented by: Ondansetron HCl (Zofran) 4 mg IV Q8H PRN PRN PRN Reason: NAUSEA/VOMITING Oxybutynin Chloride (Ditropan) 5 mg PO BID [facility] Last Admin: 10/26/19 22:27 Dose: 5 mg Documented by: Pregabalin (Lyrica) 100 mg PO LUNCH [facility] Last Admin: 10/26/19 11:11 Dose: Not Given Documented by: Pregabalin (Lyrica) 200 mg PO BID [facility] Last Admin: 10/26/19 10:04 Dose: Not Given Documented by: Risperidone (Risperdal) 0.25 mg PO BID [facility] Last Admin: 10/26/19 22:30 Dose: 0.25 mg Documented by: Sodium Chloride () 10 - 40 ml IV UD PRN PRN Reason: SALINE FLUSH Last Admin: 10/26/19 11:43 Dose: 10 ml Documented by: Tramadol HCl (Ultram) 100 mg PO Q6H PRN PRN PRN Reason: Pain Score 1-10/10 Clinical Impression(s) from Imaging Studies Foot X-Ray 10/26/19 16:55 IMPRESSION: Acute nondisplaced fracture through the proximal shaft of the second metatarsal Electronically Signed: Luther Santos MD at 17:15 EDT , Service support , Medical Necessity - Tobacco Use Smoking Status: Current every day smoker Assessment/Plan All Active Problems (Last Reviewed 10/24/19 @ 00:[address] Kurt Gore MD) Hyperglycemia (Acute) Dehydration (Acute) Leukocytosis (Acute) UTI (urinary tract infection) (Acute) Hyperglycemia due to type 2 diabetes mellitus (Acute) Hypoxemia (Acute) MICHELE (acute kidney injury) (Acute) Hyperosmolar hyponatremia (Acute) Blind left eye (Resolved) RECOMMENDATIONS: 1. Continue home medications 2. Continue to titrate basal insulin with sliding scale insulin 3. Encourage incentive spirometer 4. Topical coverage of vaginal candidiasis 5. Walking oximetry prior to discharge. Check room air oximetry IMPRESSIONS: 1. Hyperosmolar non-ketosis syndrome/poorly controlled insulin-dependent diabetes mellitus Patient is doing well on basal insulin with sliding scale. Will advance diet and cover as necessary. Given response to therapy, noncompliance with insulin therapy is likely contributing to elevated hemoglobin A1c. Hemoglobin A1c would suggest patient is not controlled at baseline. Would benefit from outpatient endocrine consultation. May benefit from increased basal insulin as p.o. intake increases 2. Acute kidney injury Resolved. Clinical suspicion for prerenal etiology secondary to #1. Patient responded well to hydration. Continue with aggressive hydration for now. Patient's corrected sodium was within normal limits on presentation. Anticipate need for potassium supplementation for hypokalemia intermittently. May have an element of refeeding syndrome. Electrolyte supplementation as indicated. Recheck BMP tomorrow 3. Acute hypoxic respiratory insufficiency Unclear etiology at this time. Patient is at high risk for diabetic complications. Will address underlying acute kidney injury and HHS and reevaluate. Chest x-ray is suggestive of atelectasis. Patient did have rales on exam that improved with deep inhalation and cough. Responding well to use of incentive spirometer. Check room air saturations and walking oximetry. No cough, leukocytosis or sputum suggestive of pneumonia at this time. No antibiotics or steroids required from a pulmonary perspective 4. Vulvovaginal candidiasis Patient has received antifungal therapy. Unclear if patient has an element of translocation secondary to a lack of integrity with vaginitis. Patient may need help from case management/social work for help at home. 5. Schizophrenia/tobacco abuse/poor historian/foot fracture Complicates care, management, recovery and prognosis. Confirm home medications and reinitiate therapy for baseline. Patient may benefit from a navqi boot to offload second metatarsal. Defer to primary service if orthopedics needs consulted. Inpatient E&M: 75257 Subs Hosp L2
[2019-10-27] MEDS: Fluticasone 0.05% 1 SPRAY NASAL.SRY NASAL (09:59)
[2019-10-27] MEDS: DULoxetine Hcl 30 MG Capsule PO (09:59)
[2019-10-27] MEDS: Loratadine 10 MG Tablet PO (09:59)
[2019-10-27] MEDS: Oxybutynin 5 MG Tablet PO (09:59)
[2019-10-27] MEDS: levETIRAcetam 500 MG Tablet PO (09:59)
[2019-10-27] MEDS: NYSTATIN 500,000 UNIT/5 ML UDC 500000 UNIT PO (10:00)
[2019-10-27] MEDS: hydrOXYzine PAM 25 MG Capsule 50 MG PO (10:01)
[2019-10-27] MEDS: Enoxaparin 40 MG/0.4 ML Syringe SC (10:03)
[2019-10-27] MEDS: RisperiDONE 0.25 MG Tablet PO (10:03)
--- NOTE | 2019-10-27 10:09 | CON.PCM_ITS ---
Reason for Consult Date of Consultation: 10/27/19 Reason for Consultation: Right 2nd metatarsal fracture History of Present Illness: Podiatry was consulted on this patient who is a 49 year old female with history of multiple medical problems including severely uncontrolled diabetes (ha1c was >16) for right 2nd metatarsal nondisplaced fracture. Patient is not sure how she injured her foot, but there is bruising, swelling and she relates to some pain to the site. Patient is a smoker, she relates she smokes 3/4 pack per day. Patient has no other pedal complaints at this time. Past Medical History Past Medical History (Chronic Problems): Chronic Problems (Last Reviewed 10/24/19 @ 00:[address] Kurt Gore MD) Type II diabetes mellitus (Chronic) Depression (Chronic) Anxiety (Chronic) Peripheral neuropathy (Chronic) Medical History: Medical History (Last Reviewed 10/24/19 @ 00:[address] Kurt Gore MD) Fibromyalgia M79.7 Schizophrenia F20.9 Allergies Sulfa (Sulfonamide Antibiotics) Allergy (Verified 10/23/19 18:31) Hives Home Medications: Ambulatory Orders Medication Instructions Recorded Pregabalin [Lyrica] 200 mg PO BID 10/27/15 traMADol [Ultram] 100 mg PO Q6H PRN PRN 10/27/15 Pregabalin [Lyrica] 100 mg PO LUNCH 07/26/16 Albuterol Inhaler [Ventolin Hfa] 2 puff INHALATION Q4H PRN PRN 06/10/17 Fluticasone Propionate [Flovent 50 mcg NASAL BID 06/10/17 Diskus] Meloxicam [Mobic] 15 mg PO DAILY 06/10/17 Oxybutynin Chloride [Ditropan Xl] 5 mg PO BID 06/10/17 Insulin Lispro [Humalog KwikPen] 16 unit SQ TID 06/05/18 Risperidone 0.5 mg PO BID 06/05/18 Baclofen 10 mg PO TID PRN PRN 06/06/18 Insulin Glargine,Hum.rec.anlog 30 unit SQ BID #5 pen 09/04/19 [Basaglar Kwikpen U-100] Cetirizine HCl [All Day Allergy] 10 mg PO DAILY 10/24/19 Duloxetine Hcl [Cymbalta] 30 mg PO BID 10/24/19 Hydroxyzine Pamoate [Vistaril] 50 mg PO BID 10/24/19 Levetiracetam [Keppra] 500 mg PO BID 10/24/19 Prazosin HCl [Minipress] 2 mg PO QHS 10/24/19 Surgical History: cholecystectomy, - - Tubal ligation. 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 Paternal History Items: - - Paternal history was unable to be obtained because of confusion. Review of Systems Constitutional: Denies: Chills, Fever Gastrointestinal: Denies: Nausea, Vomiting Patient Problems: Active and Suspected Problems (Last Reviewed 10/24/19 @ 00:[address] Kurt Gore MD) Hyperosmolar hyponatremia (Acute) - Physical Exam Vitals/I&O's: Vital Signs Temp Pulse Resp BP Pulse Ox 97.9 F 75 16 99/61 93 10/27/19 09:40 10/27/19 09:40 10/27/19 09:40 10/27/19 09:40 10/27/19 09:40 Oxygen Flow Rate (L/min) 2 Oxygen Delivery Method Nasal Cannula Weight: 74 kg Body Mass Index (BMI) 26.3 Finger Stick Blood Glucose 457 Intake and Output for Last 24 Hours 10/25/19 10/26/19 10/27/19 23:59 23:59 23:59 Intake Total 1926. 950 / 950 1200 / 1200 Output Total 2395 / 2395 Balance 950 / 950 -1195 / -1195 General: Alert, Oriented x3, Cooperative, No apparent distress Extremities: Capillary Refill Less than 3 Seconds, No Calf Tenderness, - - Right foot with ecchymosis and edema c/w her injury. No open lesions, no drainage, no cellulitis, no fluctuance, no crepitus, no blisters, no necrosis bilateral foot/ankle. Sensation significantly diminished to the foot c/w peripheral neuropathy- chronic. CFT < 2 seconds to all toes bilateral, no edema left foot, temperature normal to foot bilateral, no evidence of ischemia to the foot bilateral. There is pain to the 2nd metatarsal c/w fracture, no dislocations bilateral. Muscle strength intact to the foot/ankle bilateral. Psych/Mental Status: Appropriate Microbiology Past 72 Hours 10/23/19 18:40 Urine, Clean Catch Urine Culture - Final Mixed Gram Pos & Gram Neg Org Presumptive C albicans Laboratory Results 10/26/19 11:06: POC Glucose 242 H 10/26/19 16:01: POC Glucose 275 H 10/26/19 22:19: POC Glucose 430 H 10/27/19 06:38: POC Glucose 99 Current Medications Acetaminophen (Tylenol) 1,000 mg PO TID [facility] Last Admin: 10/27/19 05:30 Dose: 1,000 mg Documented by: Albuterol Sulfate (Ventolin Aerosols) 2.5 mg INHALATION Q4H PRN PRN PRN Reason: SOB/WEEZING Dextrose (D50w Syringe) 0 gm IV X1 PRN; Protocol PRN Reason: HYPOGLYCEMIA Doxazosin Mesylate (Cardura) 1.5 mg PO QHS [facility] Last Admin: 10/26/19 22:23 Dose: 1.5 mg Documented by: Duloxetine HCl (Cymbalta) 30 mg PO BID [facility] Last Admin: 10/27/19 09:59 Dose: 30 mg Documented by: Enoxaparin Sodium (Lovenox) 40 mg SC DAILY [facility] Last Admin: 10/27/19 10:03 Dose: 40 mg Documented by: Fluticasone Propionate (Flonase Nasal [place]) 1 spray NASAL BID [facility] Last Admin: 10/27/19 09:59 Dose: 1 spray Documented by: Glucagon () 1 mg IM .X1 PRN PRN Reason: Hypoglycemia Hydroxyzine Pamoate (Vistaril Pamoate Capsule) 50 mg PO BID [facility] Last Admin: 10/27/19 10:01 Dose: 50 mg Documented by: Sodium Chloride () 250 mls @ 15 mls/hr IV .[id number] PRN PRN Reason: Saline Flush Insulin Glargine (Lantus (Bkc)) 34 units SC BID [facility] Last Admin: 10/26/19 22:32 Dose: 34 units Documented by: Insulin Human Lispro (Humalog Kwikpen (Bkc)) 0 unit SC ACHS [facility]; Protocol Last Admin: 10/27/19 06:45 Dose: Not Given Documented by: Levetiracetam (Keppra Tablet) 500 mg PO BID [facility] Last Admin: 10/27/19 09:59 Dose: 500 mg Documented by: Loratadine (Claritin) 10 mg PO DAILY [facility] Last Admin: 10/27/19 09:59 Dose: 10 mg Documented by: Nicotine (Nicoderm Cq (Pbkc)) 21 mg TRANSDERM. DAILY [facility] Last Admin: 10/27/19 10:00 Dose: 21 mg Documented by: Nystatin (Mycostatin Powder) 1 applic TOPICAL TID [facility]; Protocol Last Admin: 10/27/19 05:29 Dose: 1 applicatio Documented by: Nystatin (Nystatin) 500,000 unit PO 4X/DAY [facility] Last Admin: 10/27/19 10:00 Dose: 500,000 unit Documented by: Ondansetron HCl (Zofran) 4 mg IV Q8H PRN PRN PRN Reason: NAUSEA/VOMITING Oxybutynin Chloride (Ditropan) 5 mg PO BID [facility] Last Admin: 10/27/19 09:59 Dose: 5 mg Documented by: Pregabalin (Lyrica) 100 mg PO LUNCH [facility] Last Admin: 10/26/19 11:11 Dose: Not Given Documented by: Pregabalin (Lyrica) 200 mg PO BID [facility] Last Admin: 10/26/19 10:04 Dose: Not Given Documented by: Risperidone (Risperdal) 0.25 mg PO BID [facility] Last Admin: 10/27/19 10:03 Dose: 0.25 mg Documented by: Sodium Chloride () 10 - 40 ml IV UD PRN PRN Reason: SALINE FLUSH Last Admin: 10/26/19 11:43 Dose: 10 ml Documented by: Tramadol HCl (Ultram) 100 mg PO Q6H PRN PRN PRN Reason: Pain Score 1-10/10 Assessment/Plan All Active Problems (Last Reviewed 10/24/19 @ 00:[address] Kurt Gore MD) Hyperglycemia (Acute) Dehydration (Acute) Leukocytosis (Acute) UTI (urinary tract infection) (Acute) Hyperglycemia due to type 2 diabetes mellitus (Acute) Hypoxemia (Acute) MICHELE (acute kidney injury) (Acute) Hyperosmolar hyponatremia (Acute) Blind left eye (Resolved) Nondisplaced right 2nd metatarsal fracture at proximal shaft Uncontrolled diabetes w/ peripheral neuropathy Tobacco Use Reviewed right foot xrays. We will treat with a CAM Walker boot to the right foot/ankle to keep foot protected. Patient to keep this in place to keep foot protected. Advised nonweightbearing to the right foot for 8 weeks. Patient to use wheelchair or walker to remain nonweightbearing to the right foot. Keep right foot elevated as much as possible. Recommended tobacco cessation as well as importance of proper blood sugar control to help optimize healing. Reviewed rationale of this with patient. Patient to follow up with us in office in 1-2 weeks to follow up on fracture and for diabetic foot care.
--- NOTE | 2019-10-27 10:18 | DCINST_ITS ---
Discharge Activity: May Not Drive Weight Bearing Status: No weight bearing - Remain nonweightbearing to the right foot at all times. Keep right foot protected in cast boot at all times. Keep extremity elevated above heart level: Right Leg - Elevate right foot with pillows as much as possible. Call your doctor if you observe: Calf discomfort, Uncontrolled pain Allergies/Adverse Reactions: Allergies Sulfa (Sulfonamide Antibiotics) Allergy (Verified 10/23/19 18:31) Hives Medications to take at Discharge Pregabalin [Lyrica] 200 mg PO BID 10/27/15 traMADol [Ultram] 100 mg PO Q6H PRN PRN 10/27/15 Pregabalin [Lyrica] 100 mg PO LUNCH 07/26/16 Albuterol Inhaler [Ventolin Hfa] 2 puff INHALATION Q4H PRN PRN 06/10/17 Fluticasone Propionate [Flovent Diskus] 50 mcg NASAL BID 06/10/17 Meloxicam [Mobic] 15 mg PO DAILY 06/10/17 Oxybutynin Chloride [Ditropan Xl] 5 mg PO BID 06/10/17 Cetirizine HCl [All Day Allergy] 10 mg PO DAILY 10/24/19 Duloxetine Hcl [Cymbalta] 30 mg PO BID 10/24/19 Hydroxyzine Pamoate [Vistaril] 50 mg PO BID 10/24/19 Levetiracetam [Keppra] 500 mg PO BID 10/24/19 Prazosin HCl [Minipress] 2 mg PO QHS 10/24/19 Acetaminophen [Tylenol] 1,000 mg PO TID tab 10/27/19 Insulin Glargine [Lantus SoloStar Pen] 34 units SUBCUT BID pen 10/27/19 Risperidone [Risperdal] 0.25 mg PO BID #60 tab 10/27/19 The following prescriptions were given: Risperidone [Risperdal] 0.25 mg PO BID #60 tab Transmission Status: Received by [facility] - [place] - [address] Primary Care Physician: Tata Molina MD [Primary Care Provider] - Test Results: Test results from this visit will be discussed in further detail at your follow- up appointment, if applicable. Please Follow Up With: Luther Sadler DPM - Call office at [phone] to make appt. When: 1-2 weeks, sooner if needed Please Follow Up With: Maynor Luciano MD When:
--- NOTE | 2019-10-27 11:27 | DCINST_ITS ---
- Discharge Diagnoses Current Active Problems: Current Active and Chronic Problems (Last Reviewed 10/24/19 @ 00:[address] Kurt Gore MD) Hyperosmolar hyponatremia (Acute) You will use the following diet at home:: Calorie/Carbohydrate Controlled (specify 1200, 1400, etc) - 1800 candy / day, Cardiac Your food should be the consistency of: Regular Your liquids should be the consistency of: Regular/Thin Discharge Activity: May Not Drive Weight Bearing Status: No weight bearing - Remain nonweightbearing to the right foot at all times. Keep right foot protected in cast boot at all times. Keep extremity elevated above heart level: Right Leg - Elevate right foot with pillows as much as possible. Call your doctor if you observe: Calf discomfort, Uncontrolled pain Allergies/Adverse Reactions: Allergies Sulfa (Sulfonamide Antibiotics) Allergy (Verified 10/23/19 18:31) Hives Medications to take at Discharge Pregabalin [Lyrica] 200 mg PO BID 10/27/15 traMADol [Ultram] 100 mg PO Q6H PRN PRN 10/27/15 Pregabalin [Lyrica] 100 mg PO LUNCH 07/26/16 Albuterol Inhaler [Ventolin Hfa] 2 puff INHALATION Q4H PRN PRN 06/10/17 Fluticasone Propionate [Flovent Diskus] 50 mcg NASAL BID 06/10/17 Meloxicam [Mobic] 15 mg PO DAILY 06/10/17 Oxybutynin Chloride [Ditropan Xl] 5 mg PO BID 06/10/17 Cetirizine HCl [All Day Allergy] 10 mg PO DAILY 10/24/19 Duloxetine Hcl [Cymbalta] 30 mg PO BID 10/24/19 Hydroxyzine Pamoate [Vistaril] 50 mg PO BID 10/24/19 Levetiracetam [Keppra] 500 mg PO BID 10/24/19 Prazosin HCl [Minipress] 2 mg PO QHS 10/24/19 Acetaminophen [Tylenol] 1,000 mg PO TID tablet 10/27/19 Insulin Glargine [Lantus SoloStar Pen] 34 units SC BID pen 10/27/19 Risperidone [Risperdal] 0.25 mg PO BID #60 tab 10/27/19 The following prescriptions were given: Risperidone [Risperdal] 0.25 mg PO BID #60 tab Transmission Status: Pending to [facility] - [place] - [address] Primary Care Physician: Tata Molina MD [Primary Care Provider] - Please follow up with your Primary Care Physician in: 1-2 weeks Test Results: Test results from this visit will be discussed in further detail at your follow- up appointment, if applicable. Please Follow Up With: Luther Sadler DPM - Call office at [phone] to make appt. When: 1-2 weeks, sooner if needed Please Follow Up With: Maynor Luciano MD When: Proposed Discharge Date: 10/27/19
[2019-10-27] MEDS: Pregabalin 50 MG Capsule 100 MG PO (12:26)
[2019-10-27 12:36] LABS: Bedside Glucose 148 mg/dL (70-110)
--- NOTE | 2019-10-27 12:36 | PCM.DC.SUM ---
<Lee Brannon - Last Filed: 10/27/19 12:36> Discharge Date and Diagnosis Date of Admission: 10/23/19 Date of Discharge: 10/27/19 - Primary Discharge Diagnosis Acute Problems: Active Problems Hyperosmolar hyponatremia (Acute) 2/2 poorly controlled IDDMt2 Acute hypoxia 2/2 above resolved Acute UTI MICHELE 2/2 #1 Right 2nd metatarsal fracture - Secondary Discharge Diagnosis Chronic Problems: Chronic Problems (Last Reviewed 10/24/19 @ 00:[address] Kurt Gore MD) Type II diabetes mellitus (Chronic) Depression (Chronic) Anxiety (Chronic) Peripheral neuropathy (Chronic) Hospital Course and Treatment Imaging Results: RAD/Chest 1 View (Portable) IMPRESSION: Increased bibasilar markings as described. This may represent either atelectasis and/or early infiltrates. Follow-up is recommended. RAD/Foot min 3 Views (RIGHT) IMPRESSION: Acute nondisplaced fracture through the proximal shaft of the second metatarsal Consults: Podiatry - [facility] [employer] - [place] Operations: None Procedures: None Summary of Care Provided: Hospital Course: The patient is a 49 year old F with pmhx of IDDMt2, schizophrenia, schizophrenia, tobacco abuse, who presented to the ER with c/o dysuria. She had taken 1 week of cipro as an outpatient. In the ER she was found to have + UA, leukocytosis, and severely elevated glucose with no ketones or acidosis, MICHELE, and hyponatremia. She was started on rocephin for UTI and given IV insulin bolus along with an adjusted home insulin regimen for HHS. Risperdone was reduced and baclofen held for lethargy. She completed 3 days of rocephin, and urine showed mixed gram pos and neg organisms 25-50k CFU. Blood sugar started to significantly decline and her TID insulin was stopped and she remained only on lantus at a higher dose than home, tho this raises suspicion for noncompliance with her home regimen. She was discharged home in stable condition. She was referred to endocrinology at [facility] and should follow up this week. She also complained of right foot pain on 10/25 and was found to have a right foot fracutre. Podiatry was consulted. She was placed in a boot and advised to have outpatient follow up in 1-2 weeks, activity as directed by podiatry. She will also need follow up with her PCP in 1-2 weeks. This patient was seen by Lee Brannon PA-C under the supervision of Dr. Salcedo. [] - Physical Exam Vitals/I&O's: Vital Signs Temp Pulse Resp BP Pulse Ox 97.8 F 81 18 105/56 L 93 10/27/19 12:12 10/27/19 12:12 10/27/19 12:12 10/27/19 12:12 10/27/19 12:12 Oxygen Flow Rate (L/min) 2 Oxygen Delivery Method Room Air Weight: 163 lb 2.273 oz Body Mass Index (BMI) 26.3 Finger Stick Blood Glucose 457 Intake and Output for Last 24 Hours 10/25/19 10/26/19 10/27/19 23:59 23:59 23:59 Intake Total 1926. / 1926.12 950 / 950 1560 / 1560 Output Total 2695 / 2695 Balance 1926.1926. 950 / 950 -1135 / -1135 General: Alert, Oriented x3, Cooperative HEENT: Atraumatic, PERRLA, EOMI, Normocephalic Neck: Supple, No JVD, Negative Carotid Bruits Lungs: Clear to auscultation, Normal air movement Cardiovascular: Regular rate, No murmurs Abdomen: Bowel Sounds Present, Soft, Non Tender Extremities: No edema, Capillary Refill Less than 3 Seconds Skin: No rashes, No breakdown Musculoskeletal: No Tenderness to Palpation of Joints or Extremities Neurological: Cranial nerves II-XII grossly intact Psych/Mental Status: Flat Affect, Alert and oriented to time, place, person, mood and affect Microbiology Past 72 Hours 10/23/19 18:40 Urine, Clean Catch Urine Culture - Final Mixed Gram Pos & Gram Neg Org Presumptive C albicans Laboratory Results 10/26/19 16:01: POC Glucose 275 H 10/26/19 22:19: POC Glucose 430 H 10/27/19 06:38: POC Glucose 99 10/27/19 12:22: POC Glucose Pending Current Medications Acetaminophen (Tylenol) 1,000 mg PO TID [facility] Last Admin: 10/27/19 05:30 Dose: 1,000 mg Documented by: Albuterol Sulfate (Ventolin Aerosols) 2.5 mg INHALATION Q4H PRN PRN PRN Reason: SOB/WEEZING Dextrose (D50w Syringe) 0 gm IV X1 PRN; Protocol PRN Reason: HYPOGLYCEMIA Doxazosin Mesylate (Cardura) 1.5 mg PO QHS [facility] Last Admin: 10/26/19 22:23 Dose: 1.5 mg Documented by: Duloxetine HCl (Cymbalta) 30 mg PO BID [facility] Last Admin: 10/27/19 09:59 Dose: 30 mg Documented by: Enoxaparin Sodium (Lovenox) 40 mg SC DAILY [facility] Last Admin: 10/27/19 10:03 Dose: 40 mg Documented by: Fluticasone Propionate (Flonase Nasal [place]) 1 spray NASAL BID [facility] Last Admin: 10/27/19 09:59 Dose: 1 spray Documented by: Glucagon () 1 mg IM .X1 PRN PRN Reason: Hypoglycemia Hydroxyzine Pamoate (Vistaril Pamoate Capsule) 50 mg PO BID [facility] Last Admin: 10/27/19 10:01 Dose: 50 mg Documented by: Sodium Chloride () 250 mls @ 15 mls/hr IV .[id number] PRN PRN Reason: Saline Flush Insulin Glargine (Lantus (Bk)) 34 units SC BID [facility] Last Admin: 10/27/19 12:24 Dose: 34 units Documented by: Insulin Human Lispro (Humalog Kwikpen (Bk)) 0 unit SC ACHS [facility]; Protocol Last Admin: 10/27/19 12:24 Dose: Not Given Documented by: Levetiracetam (Keppra Tablet) 500 mg PO BID [facility] Last Admin: 10/27/19 09:59 Dose: 500 mg Documented by: Loratadine (Claritin) 10 mg PO DAILY [facility] Last Admin: 10/27/19 09:59 Dose: 10 mg Documented by: Nicotine (Nicoderm Cq (Pbkc)) 21 mg TRANSDERM. DAILY [facility] Last Admin: 10/27/19 10:00 Dose: 21 mg Documented by: Nystatin (Mycostatin Powder) 1 applic TOPICAL TID [facility]; Protocol Last Admin: 10/27/19 05:29 Dose: 1 applicatio Documented by: Nystatin (Nystatin) 500,000 unit PO 4X/DAY [facility] Last Admin: 10/27/19 10:00 Dose: 500,000 unit Documented by: Ondansetron HCl (Zofran) 4 mg IV Q8H PRN PRN PRN Reason: NAUSEA/VOMITING Oxybutynin Chloride (Ditropan) 5 mg PO BID [facility] Last Admin: 10/27/19 09:59 Dose: 5 mg Documented by: Pregabalin (Lyrica) 100 mg PO LUNCH [facility] Last Admin: 10/27/19 12:26 Dose: 100 mg Documented by: Pregabalin (Lyrica) 200 mg PO BID [facility] Last Admin: 10/26/19 10:04 Dose: Not Given Documented by: Risperidone (Risperdal) 0.25 mg PO BID [facility] Last Admin: 10/27/19 10:03 Dose: 0.25 mg Documented by: Sodium Chloride () 10 - 40 ml IV UD PRN PRN Reason: SALINE FLUSH Last Admin: 10/26/19 11:43 Dose: 10 ml Documented by: Tramadol HCl (Ultram) 100 mg PO Q6H PRN PRN PRN Reason: Pain Score 1-10/10 Discharge Diet: Low fat/ Low Cholesterol, 1800 Calorie Control Diet Discharge Activity: May Not Drive Weight Bearing Status: No weight bearing - Remain nonweightbearing to the right foot at all times. Keep right foot protected in cast boot at all times. Keep extremity elevated above heart level: Right Leg - Elevate right foot with pillows as much as possible. Call your doctor if you observe: Calf discomfort, Uncontrolled pain Home Medications: Medications to take at Discharge Pregabalin [Lyrica] 200 mg PO BID 10/27/15 traMADol [Ultram] 100 mg PO Q6H PRN PRN 10/27/15 Pregabalin [Lyrica] 100 mg PO LUNCH 07/26/16 Albuterol Inhaler [Ventolin Hfa] 2 puff INHALATION Q4H PRN PRN 06/10/17 Fluticasone Propionate [Flovent Diskus] 50 mcg NASAL BID 06/10/17 Meloxicam [Mobic] 15 mg PO DAILY 06/10/17 Oxybutynin Chloride [Ditropan Xl] 5 mg PO BID 06/10/17 Cetirizine HCl [All Day Allergy] 10 mg PO DAILY 10/24/19 Duloxetine Hcl [Cymbalta] 30 mg PO BID 10/24/19 Hydroxyzine Pamoate [Vistaril] 50 mg PO BID 10/24/19 Levetiracetam [Keppra] 500 mg PO BID 10/24/19 Prazosin HCl [Minipress] 2 mg PO QHS 10/24/19 Acetaminophen [Tylenol] 1,000 mg PO TID tab 10/27/19 Insulin Glargine [Lantus SoloStar Pen] 34 units SUBCUT BID pen 10/27/19 Risperidone [Risperdal] 0.25 mg PO BID #60 tab 10/27/19 Following Prescrptions Were Given to Patient: Risperidone [Risperdal] 0.25 mg PO BID #60 tab Transmission Status: Received by [facility] - [place] - [address] Primary Care Physician: Tata Molina MD [Primary Care Provider] - Please follow up with your Primary Care Physician in: 1-2 weeks Please Follow Up With: Luther Sadler DPM - Call office at [phone] to make appt. When: 1-2 weeks, sooner if needed Please Follow Up With: Maynor Luciano MD When: Disposition: Home Minutes spent on discharge:: 35 Patient Condition:: Stable Medical Necessity - Tobacco Use Smoking Status: Current every day smoker Meaningful Use Info Meaningful Use Diagnoses (Choose all that apply): None applicable <Matias,[place] - Last Filed: 10/27/19 14:04> Discharge Date and Diagnosis - Secondary Discharge Diagnosis Chronic Problems: Chronic Problems (Last Reviewed 10/24/19 @ 00:[address] Kurt Gore MD) Type II diabetes mellitus (Chronic) Depression (Chronic) Anxiety (Chronic) Peripheral neuropathy (Chronic) Hospital Course and Treatment Summary of Care Provided: This patient was seen in conjunction with PITER Keller. I have independently interviewed and examined the patient and reviewed pertinent historical, laboratory, and other data. Please refer to PITER Keller note for his patient's presentation, findings, and recommendations. I have reviewed and his note and concur with his documentation 49-year-old female with past medical history of schizophrenia, type II DM complicated by neuropathy, on insulin who was treated for UTI 1 week prior to admission. Patient was admitted to the hospital through the ED with hypoxia, and found to have severely elevated blood sugar, serum glucose of 1598 without anion gap. She was admitted to ICU and treated as acute hyperosmolar hyperglycemic state. She was started on insulin drip and transition to her home insulin regimen. During the course of her hospital stay, patient was lethargic, she had experienced a fall at home. Her risperidone was decreased. X-ray of the right foot showed fracture of the shaft of the second metatarsal. Podiatry was consulted. They recommended a boot. Patient has a walker and wheel chair at home. Was unwilling to be discharged to a [facility] facility. She was treated empirically in this hospital for acute UTI. She completed 3 days of IV ceftriaxone. Urine cultures showed mixed growth. On the day of discharge, patient was seen and examined. Denied any new complaints. Physical exam: General: Alert oriented x3, not pale, not jaundiced HEENT: Atraumatic, PERRLA, EOMI, Normocephalic Neck: Supple, No JVD, Negative Carotid Bruits Lungs: Clear to auscultation, Normal air movement Cardiovascular: Regular rate, Normal S1, Normal S2, No murmurs Abdomen: Bowel Sounds Present, Soft, Non Tender Extremities: Bilateral lower extremity edema +1, bruise over the right foot. Skin: No rashes, No breakdown, Excoriated - Perineum; and vulvovaginal area Musculoskeletal: No Tenderness to Palpation of Joints or Extremities Neurological: Cranial nerves II-XII grossly intact Psych/Mental Status: Flat Affect, alert oriented x3 - Physical Exam Vitals/I&O's: Vital Signs Temp Pulse Resp BP Pulse Ox 97.8 F 81 18 105/56 L 93 10/27/19 12:12 10/27/19 12:12 10/27/19 12:12 10/27/19 12:12 10/27/19 12:12 Oxygen Flow Rate (L/min) 2 Oxygen Delivery Method Room Air Weight: 74 kg Body Mass Index (BMI) 26.3 Finger Stick Blood Glucose 457 Intake and Output for Last 24 Hours 10/25/19 10/26/19 10/27/19 23:59 23:59 23:59 Intake Total 1926. / 1926.12 950 / 950 1560 / 1560 Output Total 2695 / 2695 Balance 1926. / 1926.12 950 / 950 -1135 / -1135 Microbiology Past 72 Hours 10/23/19 18:40 Urine, Clean Catch Urine Culture - Final Mixed Gram Pos & Gram Neg Org Presumptive C albicans Laboratory Results 10/26/19 16:01: POC Glucose 275 H 10/26/19 22:19: POC Glucose 430 H 10/27/19 06:38: POC Glucose 99 10/27/19 12:22: POC Glucose 148 H Inpatient E&M: 93063 Disch Hosp
--- NOTE | 2019-10-29 13:20 | CASEMGMT ---
KIARRA SAHA F/U Phone Call LACE: 13 Strata: 3 Discharge date: 10/27/2019 Call date: 10/29/2019 Call time: 1320 Admission dx: HHS Pt states has been doing 'ok' since discharge. Pt does ask if she was prescribed pain pills at discharge and per chart, pt was not and updated at this time, voices understanding. Pt states no further questions regarding discharge instructions/medications at this time. Pt states that she has been checking her blood sugars but has not heard from [facility] yet at this time for start of care. Pt states no suggestions for [facility] at this time. Pt does have f/u with Dr. Luciano on 12/20/2019 and is also on her cancellation list for a possible earlier appt. Pt voices no further questions/concerns/needs at this time. Call to [facility] to verify that they were notified of pt discharge on 10/27/2019 and per Crystal at [facility], they were aware of pt discharge and tried to reach pt without success previously but she states they will try again. SSttony PLUNKETT CM
--- NOTE | 2019-10-31 11:14 | CASEMGMT ---
Social Work Follow-up Call: Discharge Date: 10/27/19 Call Date: 10/31/19 Call Time: 1105 Reason for follow up: follow up regarding advanced care planning Summary of call: No answer and VM is full and unable to leave message. JULIAN Agee
== END 2019-10-27 13:40 | disposition home or self-care (01) | DRG 420 ==
LOC: ED 19:07 → ICU 21:47 → PCU 10-25 12:31
PROVIDERS: Admitting Provider Hospitalist; Emergency Provider Emergency Medicine; PCP Internal Medicine; Visit Provider Internal Medicine
DX: E11.00 Type 2 diabetes mellitus with hyperosmolarity without nonketotic hyperglycemic-hyperosmolar coma (NKHHC) (principal); G93.41 Metabolic encephalopathy; N39.0 Urinary tract infection, site not specified; E87.1 Hypo-osmolality and hyponatremia; N17.9 Acute kidney failure, unspecified; J98.11 Atelectasis; B37.2 Candidiasis of skin and nail; F32.9 Major depressive disorder, single episode, unspecified; R09.02 Hypoxemia; S92.324A Nondisplaced fracture of second metatarsal bone, right foot, initial encounter for closed fracture; W19.XXXA Unspecified fall, initial encounter; F41.9 Anxiety disorder, unspecified; Z79.1 Long term (current) use of non-steroidal anti-inflammatories (NSAID); Z79.4 Long term (current) use of insulin; Z91.14 Patient's other noncompliance with medication regimen; H54.62 Unqualified visual loss, left eye, normal vision right eye; B37.3 Candidiasis of vulva and vagina; E86.0 Dehydration; E87.5 Hyperkalemia; E11.65 Type 2 diabetes mellitus with hyperglycemia; E11.40 Type 2 diabetes mellitus with diabetic neuropathy, unspecified; F20.9 Schizophrenia, unspecified; E87.6 Hypokalemia; F17.210 Nicotine dependence, cigarettes, uncomplicated; Y92.009 Unspecified place in unspecified non-institutional (private) residence as the place of occurrence of the external cause; G40.909 Epilepsy, unspecified, not intractable, without status epilepticus
CPT/HCPCS: 71045; 73630; 80048; 80053; 81001; 82009; 82947; 82962; 83036; 83930; 85025; 87086; 87088; 97116; 97162; 97166; 97530; 97535; 97803; 99285; J7030; A4216; J1940

== ENCOUNTER 2020-03-19 13:13 | Emergency (ER) | payer MEDICAID, SELFPAY ==
[2019-10-25 10:20] VITALS: BMI 26.3
[2020-03-19 13:14] VITALS: BP 110/72; PULSE 85; RESP 18; TEMP 36.2; O2SAT 94; BMI 26.6
[2020-03-19 14:23] LABS: Bacteria 0 SEEN /hpf (None Seen); Mucous, Urine 0 SEEN /hpf (<or=2+); Red Blood Cells-Urine 0 SEEN /hpf (0-5)
[2020-03-19 14:39] LABS: Color, Urine Yellow (Yellow); Glucose, Dipstick 1000 mg/dl (Normal); Ketone-Dipstick Negative (Negative); Leukocyte Esterase-Dipstick 100 /ul (Negative); Nitrite-Dipstick Negative (Negative); Occult Blood-Urine 50 /ul (Negative); Protein-Dipstick 100 mg/dl (Negative); Urine Bilirubin Dipstick Negative (Negative); Urine Clarity Sl. Cloudy (Clear); Urine Urobilinogen Normal (Normal)
[2020-03-19 14:53] LABS: Squamous Epithelial Cells - UA 0-5 SEEN /hpf (5-10); White Blood Cells 5-10 SEEN /hpf (0-5)
--- NOTE | 2020-03-19 15:00 | ED.DCSUM_ITS ---
History of Present Illness Chief Complaint: Complaint Informant: Patient Onset: Days Context: Gradual Onset Timing: Continuous Narrative: Patient is a 49-year-old female presenting with 1 week of UTI symptoms. States she has had intermittent hematuria, frequency and urgency. She denies any fever. She is had some mild discomfort in her suprapubic region. She recently was on a Z-Davide for bronchitis but denies any recent UTIs. She denies any associated nausea or vomiting. Denies any change in her bowel movements. No other complaints at this time. Past Medical History - Allergies and Home Meds Allergies/Adverse Reactions: Allergies Sulfa (Sulfonamide Antibiotics) Allergy (Verified 10/23/19 18:31) Hives Primary Care Physician: Tata Molina MD [Primary Care Provider] - Past Medical History: - - Diabetes mellitus, peripheral neuropathy, depression Surgical History: cholecystectomy, - - Tubal ligation. Smoking Status: Former smoker - Family History Maternal Family History: Reports: - - Maternal history was unable to be obtained because of confusion. Paternal Family History: Reports: - - Paternal history was unable to be obtained because of confusion. Review of Systems General: Denies: Chills, Fever, Sweats Eyes: Denies: Visual changes - bilaterally, Diplopia ENT: Denies: Rhinorrhea, Sore throat Cardiovascular: Denies: Chest pain, Palpitations Respiratory: Denies: Dyspnea, Cough, Dyspnea on exertion Gastrointestinal: Reports: Abdominal pain - Suprapubic. Denies: Nausea, Vomiting, Diarrhea, Melena, Hematochezia Genitourinary: Reports: Dysuria, Hematuria, Frequency Musculoskeletal: Denies: Back pain, Extremity Pain Skin: Denies: Rash, Wounds Neurological: Denies: Headache, Weakness, Numbness Physical Exam Vital Signs/Narrative: Vital Signs Temp Pulse Resp BP Pulse Ox 03/19/20 13:14 97.1 F L 85 18 110/72 94 Inital Vital Signs reviewed: Yes General: Well nourished, Well developed, No Acute Distress Head: Normocephalic, Atraumatic Eyes: Perrl, EOMI ENT: Moist mucous membranes, No rhinorrhea Neck: Supple, Nontender Cardiovascular: Regular rate, Regular rhythm, No murmurs Respiratory: No distress, CTA bilaterally, Chest nontender Abdomen: Soft, Nontender, Nondistended, Normal bowel sounds. Negative for: Guarding, Rebound tenderness Back: Nontender, Normal Inspection. Negative for: CVA tenderness Extremities: Nontender, No edema Skin: Normal color, No rash Neurological: Alert, Oriented x3, Cranial nerves II-XII grossly intact, Normal Strength, Normal Sensation Psychological: Normal affect, Normal Mood Diagnostic/Tx/Re-eval Laboratory Data 03/19/20 14:18 Urine Color Yellow Urine Clarity Sl. Cloudy Urine pH 6.0 Ur Specific [place] 1.010 Urine Protein 100 H Urine Glucose (UA) 1000 H Urine Ketones Negative Urine Occult Blood 50 H Urine Nitrite Negative Urine Bilirubin Negative Urine Urobilinogen Normal Ur Leukocyte Esterase 100 H Urine RBC 0 SEEN Urine WBC 5-10 SEEN Ur Squamous Epith Cells 0-5 SEEN Urine Bacteria 0 SEEN Urine Mucus 0 SEEN - Medical Decision Making Patient evaluated for 1 week of UTI symptoms. She is well-appearing. She has normal vital signs. Urinalysis is consistent with UTI as well as glucosruea. Does have a history of diabetes mellitus. Urine culture sent. She started on Keflex empirically. I do not suspect pyelonephritis at this time. She is also given peridium for her urinary symptoms. Patient is counseled on signs and symptoms requiring return to the emergency room. Patient verbalizes agreement and understand this plan. Patient discharged home in stable and improved condition. ED Disposition - Plan for ED Patient: Disposition: Home or Assisted Living Diagnosis: UTI (urinary tract infection) Instructions: ED CYSTITIS Female Adult Prescriptions: Cephalexin [Keflex] 500 mg PO Q12 #14 cap Prescription Printed Phenazopyridine HCl [Pyridium] 200 mg PO BID PRN PRN #6 tab PRN Reason: Bladder Spasm Prescription Printed Referrals: Tata Molina MD [Primary Care Provider] - Additional Instructions: You did have elevated glucose in your urine which is concerning for poorly controlled diabetes. Please follow with your primary care doctor for this. Your urinalysis is consistent with UTI so you have started on antibiotics. Drink plenty of fluids. Return the emergency room if you develop fever or worsening symptoms.
[2020-03-19] MEDS: Cephalexin 250 MG Capsule 500 MG PO (15:16)
[2020-03-19 15:30] VITALS: RESP 18
== END 2020-03-19 15:33 | disposition home or self-care (01) ==
PROVIDERS: Emergency Provider Emergency Medicine; PCP Internal Medicine
DX: N39.0 Urinary tract infection, site not specified (principal); E11.42 Type 2 diabetes mellitus with diabetic polyneuropathy; Z88.2 Allergy status to sulfonamides; Z90.49 Acquired absence of other specified parts of digestive tract; F32.9 Major depressive disorder, single episode, unspecified
CPT/HCPCS: 81001; 87086; 87088; 99282

== ENCOUNTER 2020-03-26 04:45 | Inpatient (IN) | payer MEDICAID, SELFPAY ==
[2020-03-26] VITALS (33 sets, daily range): BP systolic 84–177; BP diastolic 45–97; PULSE 76–106; RESP 14–20; TEMP 37–38.2; O2SAT 52–97; BMI 28.0; BMI 26.6; BMI 26.7
--- NOTE | 2020-03-26 04:55 | RAD_ITS ---
HISTORY: ALTERED MENTAL STATUS. HIGH BLOOD SUGAR AND HISTORY DIABETES. PATIENT UNCOOPERATIVE, BEST IMAGE POSSIBLE EXAMINATION/TECHNIQUE: XR Chest 1 View: Portable COMPARISON: Serial chest exams dating back to May 2018 with most recent comparison exam 10/25/2019. FINDINGS: Cardiac telemetry leads in place. Right basilar and right infrahilar platelike opacity together with left basilar small atelectasis or infiltrate. Bibasilar opacities appear similar compared to the October 2019 exam and may reflect recurrent disease and with background parenchymal scarring. Normal heart size. The upper lobes are clear. No vascular congestion or significant pleural effusion. No pneumothorax. RAD/Chest 1 View (Portable) IMPRESSION: Bibasilar infiltrates or atelectasis similar compared to the October 2019 exam. The bibasilar opacities may reflect recurrent disease and with an element of background chronic scarring. at 0718 Reported and signed by: Iván Damico MD Electronically Signed: Iván Damico, at 7:17 EST Tel , Service support ,
--- NOTE | 2020-03-26 04:55 | EKG12_ITS ---
Test Reason : DYSRHYTHMIA Blood Pressure : / mmHG Vent. Rate : 093 BPM Atrial Rate : 093 BPM P-R Int : 120 ms QRS Dur : 118 ms QT Int : 400 ms P-R-T Axes : 077 118 041 degrees QTc Int : 497 ms Normal sinus rhythm Possible Left atrial enlargement Right bundle branch block Abnormal ECG Confirmed by KATE LYNN, DAWIT ([id number]), pin machine operator MISAEL DHILLON ([id number]) on 03/27/2020 12:52:34 PM Referred By: MR Confirmed By:DAWIT LOVE MD
[2020-03-26 05:06] LABS: Bedside Glucose > 500 mg/dL (70-110)
[2020-03-26 05:07] LABS: Absolute Lymphocyte Count 0.83 X10^3/uL (0.83-4.51); Absolute Neutrophil Count 15.1 X10^3/uL (2.0-7.7); Basophil# 0.12 X10^3/uL; Basophil% 0.7 % (0-1); Hematocrit 54.1 % (37-47); Hemoglobin 14.5 g/dL (12.0-15.0); Lymphocyte # 0.83 X10^3/ul (4.0); Lymphocyte % 4.7 % (19-41); Mean Corp Hgb Conc 26.8 g/dL (32-36); Mean Corpuscular Hgb 26.4 pg (27.0-32.0); Mean Corpuscular Volume 98.5 fL (81-99); Mean Platelet Vol. 12.1 fl (6.2-12.0); Monocyte% 7.3 % (0-10); NRBC Flagged by Analyzer 0 % (0-5); Neutrophil # 15.11 X10^3/uL (2.7-7.7); Neutrophil % 85.2 % (47-70); POSITIVE MORPHOLOGY YES; Platelet Count 255 K/mm3 (150-450); RBC Distribution Width CV 20.9 % (11.6-14.6); RBC Distribution Width SD 75.5 fl (35.1-43.9); Red Blood Count 5.49 M/mm3 (4.2-5.4); White Blood Count 17.7 K/mm3 (4.4-11.0)
[2020-03-26 05:10] LABS: Differential Indicated SCAN CRITERIA MET
--- NOTE | 2020-03-26 05:10 | ED.VIS.GEN ---
History of Present Illness Chief Complaint: Hyperglycemia Narrative: Patient presenting secondary to altered mental status and high blood glucose. Patient has an underlying history of poorly controlled diabetes underlying depression and psych disease, and seizures. Patient apparently lives in a very foul living conditions. Her boyfriend called EMS tonight, because she had decreased responsiveness and she was brought to the emergency department. Patient was noted to be confused, EMS stated that her blood sugar read as high. There are some reports that she potentially has some diarrhea, patient is unable to provide any sort of additional history, and additional history was unavailable because the patient's significant other did not present to the emergency department with her. Past Medical History - Allergies and Home Meds Allergies/Adverse Reactions: Allergies Sulfa (Sulfonamide Antibiotics) Allergy (Verified 03/26/20 05:21) Anuj Primary Care Physician: Tata Molina MD [Primary Care Provider] - Prior records reviewed: Yes Past Medical History: - - Sepsis, diabetes, HHS Surgical History: cholecystectomy, - - Tubal ligation. Lives: Spouse/ Significant Other Smoking Status: Current every day smoker - Family History Maternal Family History: Reports: - - Maternal history was unable to be obtained because of confusion. Paternal Family History: Reports: - - Paternal history was unable to be obtained because of confusion. Review of Systems ROS: Unable to Obtain Physical Exam Vital Signs/Narrative: Vital Signs Temp Pulse Resp BP Pulse Ox 03/26/20 04:55 98.6 F 104 H 17 104/45 L 91 03/26/20 04:46 98.6 F 106 H 16 104/45 L 52 Inital Vital Signs reviewed: Yes General: Well developed, - - Extremely unkempt, confused, but not significantly in distress Head: Normocephalic, Atraumatic Eyes: - - Chronic changes noted of the left eye which are present in the patient's chart prior, right eye is equal round and reactive with normal motion ENT: - - Profoundly dry mucous membranes with crusting around the lips Neck: Supple Cardiovascular: Regular rhythm, Tachycardia Respiratory: - - Patient has a room air pulse ox in the 50s, but does not appear to be in respiratory distress and has normal sounding lung sounds with no retractions Abdomen: Soft, Nontender, Nondistended, Normal bowel sounds Extremities: Nontender Skin: - - Skin is warm. Patient has feces stuck on her hands legs and feet. Capillary refill appears normal. Neurological: Alert, - - Patient moves her upper and lower extremities without lateralizing deficit. She is awake, alert, she is alert and oriented to person and year Diagnostic/Tx/Re-eval Laboratory Data 03/26/20 03/26/20 03/26/20 05:00 05:00 05:00 WBC 17.7 H RBC 5.49 H Hgb 14.5 Hct 54.1 H MCV 98.5 MCH 26.4 L MCHC 26.8 L RDW Std Deviation 75.5 H RDW Coeff of Krista 20.9 H Plt Count 255 MPV 12.1 H Immature Gran % (Auto) 2.100 H Neut % (Auto) 85.2 H Lymph % (Auto) 4.7 L [place] % (Auto) 7.3 Eos % (Auto) 0.0 Baso % (Auto) 0.7 Absolute Neuts (auto) 15.1 H Absolute Lymphs (auto) 0.83 Nucleated RBC % 0 Differential Comment SCANNED Platelet Estimate ADEQUATE Plt Morphology Comment GIANT Polychromasia RARE Anisocytosis 1+ Macrocytosis RARE Specimen Type Sample Site pH Bicarbonate Actual Total CO2 Base Excess O2 Saturation ABG pCO2 ABG pO2 Vega Test O2 Delivery Device Liter Flow Sodium 114 L* Potassium 6.8 H* Chloride 76 L Carbon Dioxide 25.0 Anion Gap 13 BUN 36 H Creatinine 3.07 H Estim Creat Clear Calc 20.30 Est GFR (MDRD) Af Amer 21 L Est GFR (MDRD) Non-Af 17 L BUN/Creatinine Ratio 11.7 Glucose 1610 H* Serum Osmolality 359 H Lactic Acid Calcium 8.2 L Phosphorus 8.8 H Magnesium 2.8 H Total Bilirubin 0.40 AST 32 ALT 35 Alkaline Phosphatase 180 H Troponin I < 0.015 Total Protein 7.9 Albumin 3.0 L Globulin 4.9 H Albumin/Globulin Ratio 0.6 L Urine Color Urine Clarity Urine pH Ur Specific [place] Urine Protein Urine Glucose (UA) Urine Ketones Urine Occult Blood Urine Nitrite Urine Bilirubin Urine Urobilinogen Ur Leukocyte Esterase Urine RBC Urine WBC Ur Squamous Epith Cells Urine Bacteria Urine Mucus Urine Yeast POC Glucose 03/26/20 03/26/20 03/26/20 05:00 05:01 05:21 WBC RBC Hgb Hct MCV MCH MCHC RDW Std Deviation RDW Coeff of Krista Plt Count MPV Immature Gran % (Auto) Neut % (Auto) Lymph % (Auto) [place] % (Auto) Eos % (Auto) Baso % (Auto) Absolute Neuts (auto) Absolute Lymphs (auto) Nucleated RBC % Differential Comment Platelet Estimate Plt Morphology Comment Polychromasia Anisocytosis Macrocytosis Specimen Type Sample Site pH Bicarbonate Actual Total CO2 Base Excess O2 Saturation ABG pCO2 ABG pO2 Vega Test O2 Delivery Device Liter Flow Sodium Potassium Chloride Carbon Dioxide Anion Gap BUN Creatinine Estim Creat Clear Calc Est GFR (MDRD) Af Amer Est GFR (MDRD) Non-Af BUN/Creatinine Ratio Glucose Serum Osmolality Lactic Acid 4.6 H* Calcium Phosphorus Magnesium Total Bilirubin AST ALT Alkaline Phosphatase Troponin I Total Protein Albumin Globulin Albumin/Globulin Ratio Urine Color Yellow Urine Clarity Clear Urine pH 6.0 Ur Specific [place] 1.010 Urine Protein 30 H Urine Glucose (UA) 1000 H Urine Ketones Negative Urine Occult Blood 10 H Urine Nitrite Negative Urine Bilirubin Negative Urine Urobilinogen Normal Ur Leukocyte Esterase 100 H Urine RBC 0-5 SEEN Urine WBC 5-10 SEEN Ur Squamous Epith Cells 0 SEEN Urine Bacteria 1+ Urine Mucus 0 SEEN Urine Yeast 1+ POC Glucose > 500 H* 03/26/20 05:44 WBC RBC Hgb Hct MCV MCH MCHC RDW Std Deviation RDW Coeff of Krista Plt Count MPV Immature Gran % (Auto) Neut % (Auto) Lymph % (Auto) [place] % (Auto) Eos % (Auto) Baso % (Auto) Absolute Neuts (auto) Absolute Lymphs (auto) Nucleated RBC % Differential Comment Platelet Estimate Plt Morphology Comment Polychromasia Anisocytosis Macrocytosis Specimen Type ART Sample Site L Radial pH 7.23 L Bicarbonate Actual 24.7 Total CO2 27 Base Excess -3 L O2 Saturation 91 L ABG pCO2 58.6 H ABG pO2 72 L Vega Test Positive O2 Delivery Device Cannula Liter Flow 4.0 Sodium Potassium Chloride Carbon Dioxide Anion Gap BUN Creatinine Estim Creat Clear Calc Est GFR (MDRD) Af Amer Est GFR (MDRD) Non-Af BUN/Creatinine Ratio Glucose Serum Osmolality Lactic Acid Calcium Phosphorus Magnesium Total Bilirubin AST ALT Alkaline Phosphatase Troponin I Total Protein Albumin Globulin Albumin/Globulin Ratio Urine Color Urine Clarity Urine pH Ur Specific [place] Urine Protein Urine Glucose (UA) Urine Ketones Urine Occult Blood Urine Nitrite Urine Bilirubin Urine Urobilinogen Ur Leukocyte Esterase Urine RBC Urine WBC Ur Squamous Epith Cells Urine Bacteria Urine Mucus Urine Yeast POC Glucose - EKG Initial EKG Interpretation: - - Sinus rhythm 93 with right bundle branch block morphology, isoelectric ST segments, no significant changes from prior EKG in August of this year. - Medical Decision Making Patient presented secondary to altered mental status. Patient's bedside glucose read as high. IV access was obtained, patient was placed on supplemental oxygen as her pulse ox was low upon arrival, although I have suspicion that this was not a accurate pulse ox as she was not dyspneic or tachypneic or cyanotic. Patient was noted to have a leukocytosis and low-grade fever. Cultures were obtained. Patient was empirically given vancomycin and Zosyn along with her fluid resuscitation as I am suspicious of DKA or HHS. Patient's chemistry resulted with acute kidney injury with a creatinine in the 3 range, blood sugar of 1600, potassium of 6.8, likely pseudohyponatremia with a sodium of 114. EKG did not demonstrate any peaked T waves or QRS widening, but the patient was given prophylactic calcium to prevent for cardiac dysrhythmia. She was found to have a combined respiratory and metabolic acidosis with a pH of 7.23, PCO2 of 58, and a bicarbonate of 24. PO2 was 72 with a saturation of 90.6, pointing away from the patient's true saturations being in the 50s upon arrival. Patient had elevation of her serum osmolarity. Patient's presentation at this point likely is that of HHS, she was started on a insulin drip at 0.05 units/kg/h. Patient will require intensive care admission at this point. - Critical Care Time Critical care time (excluding procedures): 30-74 minutes, Discussing w/Patient &/or Family/Correctional Substance Abuse Counselor, Discussing w/Consultants, Arranging Admission or Transfer, Performing Direct Patient Care at Bedside ED Disposition - Plan for ED Patient: Disposition: Acute Care [facility] Diagnosis: Acidosis, MICHELE (acute kidney injury), Hyperkalemia, HHNC (hyperglycemic hyperosmolar nonketotic coma)
[2020-03-26] MEDS: 0.9% Normal Saline 1,000 ML 999 ML IV ×2 (05:19→06:33)
[2020-03-26 05:26] LABS: Osmolality, Serum 359 mOsm/KG (275-295)
[2020-03-26 05:33] LABS: Mucous, Urine 0 SEEN /hpf (<or=2+)
[2020-03-26 05:34] LABS: Color, Urine Yellow (Yellow); Glucose, Dipstick 1000 mg/dl (Normal); Ketone-Dipstick Negative (Negative); Leukocyte Esterase-Dipstick 100 /ul (Negative); Nitrite-Dipstick Negative (Negative); Occult Blood-Urine 10 /ul (Negative); Protein-Dipstick 30 mg/dl (Negative); Urine Bilirubin Dipstick Negative (Negative); Urine Clarity Clear (Clear); Urine Urobilinogen Normal (Normal)
[2020-03-26 05:39] LABS: ALB/GLOB Ratio 0.6 RATIO (0.9-2.4); AST(SGOT) 32 U/L (15-37); Alanine Aminotransfer ALT/SGPT 35 U/L (13-56); Alkaline Phosphatase 180 U/L (45-117); Anion Gap 13 (5-15); BUN 36 mg/dL (7-18); BUN/Creat Ratio 11.7 RATIO (10-20); Calcium,Total 8.2 mg/dL (8.5-10.1); Chloride 76 mmol/L (98-107); Creatinine, Serum 3.07 mg/dL (0.55-1.02); EST Glomerular Filtration Rate 17 mL/min (>60); Est Glom Filt Rate - Afr Amer 21 mL/min (>60); Globulin 4.9 g/dL (2.2-4.2); Glucose 1610 mg/dL (74-106); Magnesium 2.8 mg/dL (1.6-2.6); Phosphorus 8.8 mg/dL (2.5-4.9); Potassium 6.8 mmol/L (3.5-5.1); Protein, Total 7.9 g/dL (6.4-8.2); Sodium Level 114 mmol/L (136-145)
[2020-03-26 05:40] LABS: Lactic Acid 4.6 mmol/L (0.4-1.9)
[2020-03-26 05:45] LABS: Bacteria 1+ /hpf (None Seen); Red Blood Cells-Urine 0-5 SEEN /hpf (0-5); Squamous Epithelial Cells - UA 0 SEEN /hpf (5-10); White Blood Cells 5-10 SEEN /hpf (0-5); Yeast-Urine 1+ /hpf (None Seen)
[2020-03-26 05:47] LABS: Differential Comment SCANNED; Platelet Estimate ADEQUATE (ADEQ); Platelet Morphology GIANT
[2020-03-26 05:48] LABS: Anisocytosis 1+; Macrocytosis RARE; Polychromasia RARE
[2020-03-26 05:51] LABS: Allen Test Positive; Base Excess -3 mmol/L (-2 to +2); Bicarbonate 24.7 mmol/L (22-26); Blood Gas Specimen Type ART; O2 Delivery Device Cannula; PO2 72 mmHG (75-100); SITE L Radial; SO2 91 % (95-99); Total Carbon Dioxide 27 mmol/L; pCO2 58.6 mmHg (35-45); pH 7.23 (7.35-7.45)
--- NOTE | 2020-03-26 06:23 | PCM.HP.STD ---
Problem List (1) Type II diabetes mellitus Status: Chronic Qualifiers: Diabetes mellitus group home insulin use: with superintendent terminal use (2) Depression Status: Chronic (3) Anxiety Status: Chronic (4) Peripheral neuropathy Status: Chronic Qualifiers: (5) Hyperglycemia Status: Acute (6) Dehydration Status: Acute (7) Leukocytosis Status: Acute (8) Hyperglycemia due to type 2 diabetes mellitus Status: Acute (9) Hypoxemia Status: Inactive (10) MICHELE (acute kidney injury) Status: Acute (11) Hyperosmolar hyponatremia Status: Acute (12) Acidosis Status: Acute (13) Hyperkalemia Status: Acute (14) HHNC (hyperglycemic hyperosmolar nonketotic coma) Status: Acute History of Present Illness Date of Admission: 03/26/20 Chief Complaint: Confusion The patient is a 49 year old F with a significant history of diabetes mellitus and psychiatry disease who presents emergency department with confusion. Reportedly patient significant other called paramedics because patient was confused. When paramedics arrived patient's blood glucose on glucose meter read high. Reportedly patient house is very untidy. On presentation to the emergency department patient was reportedly covered with feces. Past Medical History Past Medical History (Chronic Problems): Chronic Problems (Last Reviewed 03/26/20 @ 07:[address] Kurt Gore MD) Type II diabetes mellitus (Chronic) Depression (Chronic) Anxiety (Chronic) Peripheral neuropathy (Chronic) Medical History: Medical History (Last Reviewed 03/26/20 @ 07:[address] Kurt Gore MD) Fibromyalgia M79.7 Schizophrenia F20.9 Allergies Sulfa (Sulfonamide Antibiotics) Allergy (Verified 03/26/20 05:21) Hives Home Medications: Ambulatory Orders Medication Instructions Recorded Pregabalin [Lyrica] 200 mg PO BID 10/27/15 traMADol [Ultram] 100 mg PO Q6H PRN PRN 10/27/15 Pregabalin [Lyrica] 100 mg PO LUNCH 07/26/16 Albuterol Inhaler [Ventolin Hfa] 2 puff INHALATION Q4H PRN PRN 06/10/17 Fluticasone Propionate [Flovent 50 mcg NASAL BID 06/10/17 Diskus] Meloxicam [Mobic] 15 mg PO DAILY 06/10/17 Oxybutynin Chloride [Ditropan Xl] 5 mg PO BID 06/10/17 Cetirizine HCl [All Day Allergy] 10 mg PO DAILY 10/24/19 Duloxetine Hcl [Cymbalta] 30 mg PO BID 10/24/19 Hydroxyzine Pamoate [Vistaril] 50 mg PO BID 10/24/19 Levetiracetam [Keppra] 500 mg PO BID 10/24/19 Prazosin HCl [Minipress] 2 mg PO QHS 10/24/19 Acetaminophen [Tylenol] 1,000 mg PO TID tab 10/27/19 Insulin Glargine [Lantus SoloStar 34 units SUBCUT BID pen 10/27/19 Pen] Risperidone [Risperdal] 0.25 mg PO BID #60 tab 10/27/19 Cephalexin [Keflex] 500 mg PO Q12 #14 cap 03/19/20 Phenazopyridine HCl [Pyridium] 200 mg PO BID PRN PRN #6 tab 03/19/20 Surgical History: cholecystectomy, - - Tubal ligation. Psychiatric History: Anxiety, Depression FACILITY TECHNICIAN History: No pertinent FACILITY TECHNICIAN history Lives: Spouse/ Significant Other Smoking Status: Current every day smoker Tobacco Use: Cigarettes - *Family History Maternal History Items: - - Maternal history was unable to be obtained because of confusion. Significant other not available to provide history. Paternal History Items: - - Paternal history was unable to be obtained because of confusion. Significant other not available to provide history. Review of Systems Unable to obtain accurate/complete ROS d/t: Acute encephalopathy. significant other not available to provide history VTE Information - Inpt Only VTE Present on Admission: No VTE Mechan Device Prophylaxis: None VTE Pharm Prophylaxis ordered?: Yes Patient Problems: Active and Suspected Problems (Last Reviewed 03/26/20 @ 07:[address] Kurt Gore MD) Hyperglycemia (Acute) Dehydration (Acute) Leukocytosis (Acute) Hyperglycemia due to type 2 diabetes mellitus (Acute) MICHELE (acute kidney injury) (Acute) Hyperosmolar hyponatremia (Acute) Acidosis (Acute) Hyperkalemia (Acute) HHNC (hyperglycemic hyperosmolar nonketotic coma) (Acute) - Physical Exam Vitals/I&O's: Vital Signs Temp Pulse Resp BP Pulse Ox 100.5 F H 90 16 138/90 H 94 03/26/20 06:00 03/26/20 06:00 03/26/20 06:00 03/26/20 06:00 03/26/20 06:00 Oxygen Flow Rate (L/min) 6 Oxygen Delivery Method Nasal Cannula Weight: 78.8 kg Body Mass Index (BMI) 28.0 Finger Stick Blood Glucose 457 Intake and Output for Last 24 Hours 03/24/20 03/25/20 03/26/20 23:59 23:59 23:59 Intake Total 50 / 50 Balance 50 / 50 General: Alert, Confused HEENT: Atraumatic, Normocephalic Oral: Dry Mucosa - Cracked lips Neck: Supple, No JVD, Trachea Midline Lungs: Clear to auscultation, Normal air movement Cardiovascular: Regular rate, Normal S1, Normal S2, No murmurs Abdomen: Bowel Sounds Present, Soft, Non Tender Extremities: No edema, Capillary Refill Less than 3 Seconds Skin: No rashes, No breakdown Musculoskeletal: No Tenderness to Palpation of Joints or Extremities Neurological: Cranial nerves II-XII grossly intact Psych/Mental Status: Flat Affect Laboratory Results 03/26/20 05:00: WBC 17.7 H, RBC 5.49 H, Hgb 14.5, Hct 54.1 H, MCV 98.5, MCH 26.4 L, MCHC 26.8 L, RDW Std Deviation 75.5 H, RDW Coeff of Krista 20.9 H, Plt Count 255, MPV 12.1 H, Immature Gran % (Auto) 2.100 H, Neut % (Auto) 85.2 H, Lymph % (Auto) 4.7 L, [place] % (Auto) 7.3, Eos % (Auto) 0.0, Baso % (Auto) 0.7, Absolute Neuts (auto) 15.1 H, Absolute Lymphs (auto) 0.83, Nucleated RBC % 0, Differential Comment SCANNED, Platelet Estimate ADEQUATE, Plt Morphology Comment GIANT, Polychromasia RARE, Anisocytosis 1+, Macrocytosis RARE 03/26/20 05:00: Sodium 114 L*, Potassium 6.8 H*, Chloride 76 L, Carbon Dioxide 25.0, Anion Gap 13, BUN 36 H, Creatinine 3.07 H, Estim Creat Clear Calc 20.30, Est GFR (MDRD) Af Amer 21 L, Est GFR (MDRD) Non-Af 17 L, BUN/Creatinine Ratio 11.7, Glucose 1610 H*, Calcium 8.2 L, Phosphorus 8.8 H, Magnesium 2.8 H, Total Bilirubin 0.40, AST 32, ALT 35, Alkaline Phosphatase 180 H, Troponin I < 0.015, Total Protein 7.9, Albumin 3.0 L, Globulin 4.9 H, Albumin/Globulin Ratio 0.6 L 03/26/20 05:00: Serum Osmolality 359 H 03/26/20 05:00: Lactic Acid 4.6 H* 03/26/20 05:01: POC Glucose > 500 H* 03/26/20 05:21: Urine Color Yellow, Urine Clarity Clear, Urine pH 6.0, Ur Specific [place] 1.010, Urine Protein 30 H, Urine Glucose (UA) 1000 H, Urine Ketones Negative, Urine Occult Blood 10 H, Urine Nitrite Negative, Urine Bilirubin Negative, Urine Urobilinogen Normal, Ur Leukocyte Esterase 100 H, Urine RBC 0-5 SEEN, Urine WBC 5-10 SEEN, Ur Squamous Epith Cells 0 SEEN, Urine Bacteria 1+, Urine Mucus 0 SEEN, Urine Yeast 1+ 03/26/20 05:25: COVID-19 (NUSRAT) Pending 03/26/20 05:44: Specimen Type ART, Sample Site L Radial, pH 7.23 L, Bicarbonate Actual 24.7, Total CO2 27, Base Excess -3 L, O2 Saturation 91 L, ABG pCO2 58.6 H, ABG pO2 72 L, Vega Test Positive, O2 Delivery Device Cannula, Liter Flow 4.0 Current Medications Dextrose (Dextrose 50%-Water 25 Gm/50 Ml Disp.Syrin) 0 gm IV X1 PRN; Protocol PRN Reason: Hypoglycemia Protocol Sodium Chloride () 1,000 mls @ 999 mls/hr IV .Q1H1M [facility] Stop: 03/26/20 06:55 Last Admin: 03/26/20 05:19 Dose: 999 mls/hr Documented by: Vancomycin HCl 1,250 mg/ (Sodium Chloride) 275 mls @ 167 mls/hr IV X1 ONE Stop: 03/26/20 07:08 Last Admin: 03/26/20 05:43 Dose: 167 mls/hr Documented by: Insulin Human Lispro 100 unit/ (Sodium Chloride) 100 mls @ 3.94 mls/hr IV .[id number] [facility]; Protocol Last Admin: 03/26/20 06:00 Dose: 0.05 units/kg/hr, 3.9 mls/hr Documented by: Calcium Gluconate 0.5 gm/ (Sodium Chloride) 105 mls @ 100 mls/hr IV X1 ONE Stop: 03/26/20 06:43 Last Admin: 03/26/20 06:05 Dose: 100 mls/hr Documented by: Assessment/Plan All Active Problems (Last Reviewed 03/26/20 @ 07:[address] Kurt Gore MD) Hyperglycemia (Acute) Dehydration (Acute) Leukocytosis (Acute) Hyperglycemia due to type 2 diabetes mellitus (Acute) MICHELE (acute kidney injury) (Acute) Hyperosmolar hyponatremia (Acute) Acidosis (Acute) Hyperkalemia (Acute) HHNC (hyperglycemic hyperosmolar nonketotic coma) (Acute) Blind left eye (Resolved) [facility] Sodium of 114; glucose of 1610; 7 Osmolality of 359. Received normal saline bolus and insulin drip 0.05 units/kg was started at emergency department; continued. Titrate per insulin drip protocol. Serial BMP. Received normal saline bolus at emergency department. Continue on normal saline IV hydration per [facility] protocol Check A1c. [employer] consult Hyperkalemia Potassium 6.8. Received calcium gluconate at the ED. Anticipate that with insulin and IV fluids potassium will drop. Trend BMP Dehydration and MICHELE CR: 3.02; BUN of 36 Baseline creatinine is less than 1. BUN over creatinine is 11.7. Likely prerenal entry into intrinsic renal. IV hydration as above Avoid nephrotoxins Trend BMP. Septic shock Etiology unclear. Lactates lactic acid 4.6. Patient with leukocytosis of 17.7 which although could be secondary to stress but also be secondary to infection. Patient has high-grade fever of 100.8. Chest x-ray independently reviewed by me and emergency department doctor showed a prominent opacities bilaterally compared to previous. Covid test is pending. Received vancomycin and Zosyn at emergency department Vancomycin and Zosyn continued. Acute encephalopathy likely secondary to septic shock and [facility] Treatment of HHS; uremia and septic shock as above. DVT Prophylaxis Subcutaneous Heparin Inpatient E&M: 19925 Init Hosp L3
--- NOTE | 2020-03-26 06:38 | NURSING ---
icu dr dinero hyperglycemic hyperosmolar non ketotic coma
--- NOTE | 2020-03-26 06:58 | NURSING ---
[id number]
[2020-03-26 07:06] LABS: Bedside Glucose > 500 mg/dL (70-110)
[2020-03-26] MEDS: 0.9% Normal Saline 1,000 ML 250 ML IV (08:49)
[2020-03-26 08:59] LABS: Anion Gap 8 (5-15); BUN 37 mg/dL (7-18); BUN/Creat Ratio 12.6 RATIO (10-20); Calcium,Total 8.3 mg/dL (8.5-10.1); Chloride 88 mmol/L (98-107); Creatinine, Serum 2.93 mg/dL (0.55-1.02); EST Glomerular Filtration Rate 18 mL/min (>60); Est Glom Filt Rate - Afr Amer 22 mL/min (>60); Estimated Creatinine Clearance 21.26 ml/min; Glucose 1382 mg/dL (74-106); Potassium 6.2 mmol/L (3.5-5.1); Sodium Level 122 mmol/L (136-145)
[2020-03-26 09:07] LABS: Reflex Lactate? Y
[2020-03-26 09:31] LABS: Bedside Glucose > 500 mg/dL (70-110)
[2020-03-26 09:40] LABS: Hemoglobin A1c 13.7 % (3.8-5.6)
--- NOTE | 2020-03-26 10:25 | CASEMGMT ---
RN CM Assessment: attempted call to patient's contact, Philip Mckeon- no answer and no messaging. Per ICU rounds, patient is not able to participate fully in assessment at this time. Noted patient home environment is unkempt, and patient had feces on her when arrived to ER -Call to physician offices to speak with them re: appointments and follow up. Noted in past admissions, patient was strongly advised to go to SNF for recovery but refused. Presentation: confusion, EMS noted high blood sugar. Diagnosis: [facility] PMH: Depression, Anxiety, DM type 2. PCP: Dr. Molina Specialists: Dr. Luciano, endocrinology, Dr. Lyon, counseling center Insurance: [employer] Pharmacy: [facility] Living arrangements: lives with significant other in apartment. In past patient has required assistance with personal care. DME: wheeled walker, cane, wheelchair, shower chair grab bars HHC: [facility] past- discharged 02/25/20 from their service. Patient had SN, PT, OT SW Consult: unkempt personal and living conditions. David updated [facility]: undetermined. Pt will need diabetic teaching reinforcement and follow up to see if patient has appropriate blood glucose monitoring supplies. Appointments below entered in worklist. -call to Dr. Luciano's (endocrinology) office. Per dynamo tender, patient did not attend the December or March 20 appointment and hasn't been seen for over a year. New appointment made for Tuesday, May 19, 2020 @ 9:30 am. -Call to Dr. Molina's office. Pt has an appointment April 08, 2020 @ 11 am.
--- NOTE | 2020-03-26 10:38 | PCM.RX.CS ---
Consult Pharmacy has been consulted to manage selected antiobiotic: Vancomycin Type of Consult: New start Suspected Infection: Sepsis Prior Doses of Antibiotics Received/Current Regimen: 1250MG X1 IN E.R. AT 0543 TODAY Weight used for dosin.1 kg Estimated Creatinine Clearance: 21ML/MIN Goal Trough: 15-20 mcg/mL Pharmacy Plan for Drug Dosing: Continue with 750mg IV q24h starting 24 hours after the E.R. dose. Will check a trough level before the 3rd dose. Pharmacy Service will continue to monitor and adjust dosing as required. Follow-Up Labs: Trough Vancomycin Labs to be done on [date and time ordered]: 03/28/20 05:30
[2020-03-26 11:08] LABS: Anion Gap 8 (5-15); BUN 35 mg/dL (7-18); BUN/Creat Ratio 13.2 RATIO (10-20); Chloride 95 mmol/L (98-107); Creatinine, Serum 2.66 mg/dL (0.55-1.02); EST Glomerular Filtration Rate 20 mL/min (>60); Est Glom Filt Rate - Afr Amer 24 mL/min (>60); Estimated Creatinine Clearance 23.42 ml/min; Glucose 964 mg/dL (74-106); Sodium Level 127 mmol/L (136-145)
[2020-03-26 11:50] LABS: Bedside Glucose > 500 mg/dL (70-110)
[2020-03-26] MEDS: 0.9% Normal Saline 1,000 ML 125 ML IV ×2 (12:30→20:30)
[2020-03-26 12:40] LABS: Bedside Glucose > 500 mg/dL (70-110)
[2020-03-26 13:40] LABS: Bedside Glucose > 500 mg/dL (70-110)
[2020-03-26 14:18] LABS: Anion Gap 6 (5-15); BUN 32 mg/dL (7-18); BUN/Creat Ratio 14.5 RATIO (10-20); Calcium,Total 8.1 mg/dL (8.5-10.1); Chloride 101 mmol/L (98-107); Creatinine, Serum 2.21 mg/dL (0.55-1.02); EST Glomerular Filtration Rate 25 mL/min (>60); Est Glom Filt Rate - Afr Amer 30 mL/min (>60); Estimated Creatinine Clearance 28.19 ml/min; Glucose 573 mg/dL (74-106); Sodium Level 134 mmol/L (136-145)
[2020-03-26 14:40] LABS: Bedside Glucose 463 mg/dL (70-110)
[2020-03-26 15:02] LABS: Lactic Acid 3.6 mmol/L (0.4-1.9)
[2020-03-26 15:41] LABS: Bedside Glucose 406 mg/dL (70-110)
[2020-03-26 16:30] LABS: Bedside Glucose 370 mg/dL (70-110)
[2020-03-26 17:41] LABS: Bedside Glucose 322 mg/dL (70-110)
[2020-03-26 18:49] LABS: Anion Gap 4 (5-15); BUN 28 mg/dL (7-18); BUN/Creat Ratio 15.6 RATIO (10-20); Calcium,Total 7.9 mg/dL (8.5-10.1); Chloride 105 mmol/L (98-107); Creatinine, Serum 1.79 mg/dL (0.55-1.02); EST Glomerular Filtration Rate 32 mL/min (>60); Est Glom Filt Rate - Afr Amer 38 mL/min (>60); Estimated Creatinine Clearance 34.81 ml/min; Glucose 333 mg/dL (74-106); Potassium 5.5 mmol/L (3.5-5.1); Sodium Level 137 mmol/L (136-145)
[2020-03-26 19:15] LABS: Bedside Glucose 325 mg/dL (70-110)
[2020-03-26 19:46] LABS: Bedside Glucose 298 mg/dL (70-110)
[2020-03-26 20:36] LABS: Bedside Glucose 302 mg/dL (70-110)
[2020-03-26] MEDS: Heparin Injection (Vial) 5,000 UNIT/ML VIAL 5000 UNIT SC (20:38)
--- NOTE | 2020-03-26 21:18 | CPS ---
nursing informed rt that patient was placed on 5 lpm due to low sp02.
[2020-03-26 21:35] LABS: Bedside Glucose 294 mg/dL (70-110)
[2020-03-26 22:40] LABS: Bedside Glucose 256 mg/dL (70-110)
[2020-03-26] MEDS: 0.9% Saline Lock 10 ML Syringe IV (23:07)
[2020-03-26 23:13] LABS: Anion Gap 3 (5-15); BUN 23 mg/dL (7-18); BUN/Creat Ratio 15.6 RATIO (10-20); Calcium,Total 8.2 mg/dL (8.5-10.1); Chloride 110 mmol/L (98-107); Creatinine, Serum 1.47 mg/dL (0.55-1.02); EST Glomerular Filtration Rate 40 mL/min (>60); Est Glom Filt Rate - Afr Amer 48 mL/min (>60); Estimated Creatinine Clearance 42.39 ml/min; Glucose 252 mg/dL (74-106); Potassium 4.4 mmol/L (3.5-5.1); Sodium Level 142 mmol/L (136-145)
[2020-03-26 23:31] LABS: Bedside Glucose 224 mg/dL (70-110)
[2020-03-26] MEDS: Dext 5%-0.45% NS 1,000 ML 125 ML IV (23:42)
[2020-03-27] VITALS (23 sets, daily range): BP systolic 140–172; BP diastolic 59–99; PULSE 67–87; RESP 12–21; TEMP 36.3–37.6; O2SAT 86–98
[2020-03-27 00:35] LABS: Bedside Glucose 243 mg/dL (70-110)
[2020-03-27 01:26] LABS: Bedside Glucose 248 mg/dL (70-110)
[2020-03-27 02:36] LABS: Bedside Glucose 257 mg/dL (70-110)
[2020-03-27 02:36] LABS: Absolute Lymphocyte Count 2.53 X10^3/uL (0.83-4.51); Absolute Neutrophil Count 11.4 X10^3/uL (2.0-7.7); Basophil# 0.09 X10^3/uL; Basophil% 0.6 % (0-1); Eosinophil# 0.07 X10^3/uL; Eosinophils% 0.5 % (0-5); Hematocrit 44.2 % (37-47); Hemoglobin 13.6 g/dL (12.0-15.0); Lymphocyte # 2.53 X10^3/ul (4.0); Lymphocyte % 16.7 % (19-41); Mean Corp Hgb Conc 30.8 g/dL (32-36); Mean Corpuscular Hgb 25.8 pg (27.0-32.0); Mean Corpuscular Volume 83.7 fL (81-99); Mean Platelet Vol. 10.6 fl (6.2-12.0); Monocyte% 6.6 % (0-10); NRBC Flagged by Analyzer 0 % (0-5); Neutrophil # 11.35 X10^3/uL (2.7-7.7); Neutrophil % 74.9 % (47-70); POSITIVE MORPHOLOGY YES; Platelet Count 221 K/mm3 (150-450); RBC Distribution Width CV 20.6 % (11.6-14.6); RBC Distribution Width SD 60.9 fl (35.1-43.9); Red Blood Count 5.28 M/mm3 (4.2-5.4); White Blood Count 15.1 K/mm3 (4.4-11.0)
[2020-03-27 02:50] LABS: Anion Gap 2 (5-15); BUN 21 mg/dL (7-18); Calcium,Total 8.2 mg/dL (8.5-10.1); Chloride 110 mmol/L (98-107); EST Glomerular Filtration Rate 42 mL/min (>60); Est Glom Filt Rate - Afr Amer 51 mL/min (>60); Glucose 258 mg/dL (74-106); Potassium 4.6 mmol/L (3.5-5.1); Sodium Level 140 mmol/L (136-145)
[2020-03-27 03:11] LABS: Differential Indicated SCAN CRITERIA MET
[2020-03-27 03:12] LABS: Differential Comment SCANNED
[2020-03-27 03:13] LABS: Platelet Estimate ADEQUATE (ADEQ); Platelet Morphology LARGE
[2020-03-27 03:14] LABS: Anisocytosis 1+; Macrocytosis RARE; Microcytosis RARE; Polychromasia RARE
[2020-03-27 03:36] LABS: Bedside Glucose 236 mg/dL (70-110)
[2020-03-27 04:31] LABS: Bedside Glucose 195 mg/dL (70-110)
[2020-03-27] MEDS: Heparin Injection (Vial) 5,000 UNIT/ML VIAL 5000 UNIT SC ×3 (05:58→20:48)
[2020-03-27] MEDS: TITRATION PARAMETER CHANGE 1 EACH IV (05:58)
[2020-03-27 06:30] LABS: Bedside Glucose 140 mg/dL (70-110)
[2020-03-27] MEDS: Dext 5%-0.45% NS 1,000 ML 125 ML IV (07:54)
[2020-03-27 07:56] LABS: Bedside Glucose 119 mg/dL (70-110)
[2020-03-27] MEDS: 0.45% Normal Saline 1,000 ML 100 ML IV (09:26)
[2020-03-27] MEDS: Meloxicam 15 MG Tablet PO (10:19)
[2020-03-27] MEDS: Loratadine 10 MG Tablet PO (10:20)
[2020-03-27] MEDS: Insulin Lispro 100 UNIT/ML INSULN.PEN SC ×4 (10:31→20:57)
[2020-03-27 10:36] LABS: Bedside Glucose 179 mg/dL (70-110)
[2020-03-27] MEDS: RisperiDONE 0.5 MG Tablet PO ×2 (12:21→20:47)
[2020-03-27 12:25] LABS: Bedside Glucose 220 mg/dL (70-110)
[2020-03-27 13:05] LABS: Bedside Glucose 252 mg/dL (70-110)
--- NOTE | 2020-03-27 13:54 | CASEMGMT ---
Social Work SW participated in ICU rounds. Pt is confused at this time and not conversing appropriately. PT on 3L O2 but not leaving on and saturations dropping. PT and OT to assess today. This pt is known to SW from previous visits. In the past pt has lived with her boyfriend Philip Mckeon who provides care for pt but he does work and pt is left alone. Per squad report, pt living conditions were poor and pt was covered in feces when found. During pt visit in October, pt choose not to complete HCPOA and LW. SW placed phone calls to pt boyfriend Philip at 1000, 1100, 1200 and 1320. No answer and VM is full and not accepting messages. SW will continue to follow and assist with discharge planning. JULIAN Agee
[2020-03-27 16:16] LABS: Bedside Glucose 174 mg/dL (70-110)
--- NOTE | 2020-03-27 18:49 | PCM.PN.HOSP ---
Patient Problems: Active and Suspected Problems (Last Reviewed 03/26/20 @ 07:[address] Kurt Gore MD) Hyperglycemia (Acute) Dehydration (Acute) Leukocytosis (Acute) Hyperglycemia due to type 2 diabetes mellitus (Acute) MICHELE (acute kidney injury) (Acute) Hyperosmolar hyponatremia (Acute) Acidosis (Acute) Hyperkalemia (Acute) HHNC (hyperglycemic hyperosmolar nonketotic coma) (Acute) Subjective: Doing better today than she did yesterday. She is little bit more alert though still confused does not know where she is though she does know that is 2019. Vitals/I&O's: Vital Signs Temp Pulse Resp BP Pulse Ox 98.1 F 78 12 140/78 H 86 03/27/20 16:08 03/27/20 16:08 03/27/20 16:08 03/27/20 16:08 03/27/20 16:08 Oxygen Flow Rate (L/min) 3 Oxygen Delivery Method Room Air Weight: 169 lb 1.513 oz Body Mass Index (BMI) 26.6 Finger Stick Blood Glucose 119 Intake and Output for Last 24 Hours 03/25/20 03/26/20 03/27/20 23:59 23:59 23:59 Intake Total 5029.16 / 5029.16 2219.38 / 2219.38 Output Total 2850 / 2850 1400 / 1400 Balance 2179.16 / 2179.16 819.38 / 819.38 General: Alert, Cooperative, No apparent distress, Disoriented HEENT: Atraumatic, PERRLA, EOMI, Normocephalic Oral: Moist Mucosa Neck: Supple, No JVD Lungs: Normal air movement, No rhonchi, No wheeze, No rales, Diminished Cardiovascular: Regular rate, Regular Rhythm, Normal S1, Normal S2, No murmurs Abdomen: Soft, Non Tender, Non-Distended, No Hepato-splenomegaly Extremities: No edema, Capillary Refill Less than 3 Seconds Skin: No rashes, No breakdown Neurological: Neuro grossly intact, Sensory exam intact to light touch and pain Psych/Mental Status: Flat Affect Laboratory Results 03/26/20 17:50: Sodium 137, Potassium 5.5 H, Chloride 105, Carbon Dioxide 28.0, Anion Gap 4 L, BUN 28 H, Creatinine 1.79 H, Estim Creat Clear Calc 34.81, Est GFR (MDRD) Af Amer 38 L, Est GFR (MDRD) Non-Af 32 L, BUN/Creatinine Ratio 15.6, Glucose 333 H, Calcium 7.9 L 03/26/20 18:44: POC Glucose 325 H 03/26/20 19:37: POC Glucose 298 H 03/26/20 20:25: POC Glucose 302 H 03/26/20 21:32: POC Glucose 294 H 03/26/20 22:28: POC Glucose 256 H 03/26/20 22:35: Sodium 142, Potassium 4.4, Chloride 110 H, Carbon Dioxide 29.0, Anion Gap 3 L, BUN 23 H, Creatinine 1.47 H, Estim Creat Clear Calc 42.39, Est GFR (MDRD) Af Amer 48 L, Est GFR (MDRD) Non-Af 40 L, BUN/Creatinine Ratio 15.6, Glucose 252 H, Calcium 8.2 L 03/26/20 23:24: POC Glucose 224 H 03/27/20 00:25: POC Glucose 243 H 03/27/20 01:20: POC Glucose 248 H 03/27/20 02:28: Sodium 140, Potassium 4.6, Chloride 110 H, Carbon Dioxide 28.0, Anion Gap 2 L, BUN 21 H, Creatinine 1.40 H, Estim Creat Clear Calc 44.50, Est GFR (MDRD) Af Amer 51 L, Est GFR (MDRD) Non-Af 42 L, BUN/Creatinine Ratio 15.0, Glucose 258 H, Calcium 8.2 L 03/27/20 02:28: WBC 15.1 H, RBC 5.28, Hgb 13.6, Hct 44.2, MCV 83.7 D, MCH 25.8 L, MCHC 30.8 L D, RDW Std Deviation 60.9 H, RDW Coeff of Krista 20.6 H, Plt Count 221, MPV 10.6, Immature Gran % (Auto) 0.700, Neut % (Auto) 74.9 H, Lymph % (Auto) 16.7 L, [place] % (Auto) 6.6, Eos % (Auto) 0.5, Baso % (Auto) 0.6, Absolute Neuts (auto) 11.4 H, Absolute Lymphs (auto) 2.53, Nucleated RBC % 0, Differential Comment SCANNED, Platelet Estimate ADEQUATE, Plt Morphology Comment LARGE, Polychromasia RARE, Anisocytosis 1+, Microcytosis RARE, Macrocytosis RARE 03/27/20 02:30: POC Glucose 257 H 03/27/20 03:25: POC Glucose 236 H 03/27/20 04:27: POC Glucose 195 H 03/27/20 06:22: POC Glucose 140 H 03/27/20 07:48: POC Glucose 119 H 03/27/20 10:29: POC Glucose 179 H 03/27/20 12:19: POC Glucose 220 H 03/27/20 12:58: POC Glucose 252 H 03/27/20 16:06: POC Glucose 174 H Current Medications Dextrose (Dextrose 50%-Water 25 Gm/50 Ml Disp.Syrin) 0 gm IV X1 PRN; Protocol PRN Reason: Hypoglycemia Protocol Doxazosin Mesylate (Doxazosin 1 Mg Tablet) 1.5 mg PO QHS [facility] Last Admin: 03/26/20 20:34 Dose: Not Given Documented by: Duloxetine HCl (Duloxetine Hcl 30 Mg Capsule) 30 mg PO BID [facility] Last Admin: 03/26/20 16:57 Dose: Not Given Documented by: Glucagon (Glucagon 1 Mg/Ml Syringe) 1 mg IM .X1 PRN PRN Reason: Hypoglycemia Heparin Sodium (Porcine) (Heparin Injection (Vial) 5,000 Unit/Ml Vial) 5,000 unit SC Q8 [facility] Last Admin: 03/27/20 16:02 Dose: 5,000 unit Documented by: Hydroxyzine Pamoate (Hydroxyzine Magda 25 Mg Capsule) 50 mg PO BID [facility] Last Admin: 03/26/20 16:58 Dose: Not Given Documented by: Vancomycin IV Pharmacy to Dose (1 ea/ Sodium Chloride) 500 mls @ 250 mls/hr IV X1 PRN; Protocol PRN Reason: Rx to Dose Sodium Chloride () 250 mls @ 15 mls/hr IV .[id number] PRN PRN Reason: Saline Flush Sodium Chloride () 250 mls @ 15 mls/hr IV .[id number] PRN PRN Reason: Additional IVPB Infusion Vancomycin HCl 750 mg/ Sodium (Chloride) 265 mls @ 250 mls/hr IV Q24H [facility] Last Infusion: 03/27/20 07:05 Dose: Infused Documented by: Sodium Chloride () 1,000 mls @ 100 mls/hr IV .Q10H [facility] Last Infusion: 03/27/20 16:02 Dose: 0 mls/hr Documented by: Piperacillin Sod/Tazobactam (Sod 3.375 gm/ Sodium Chloride) 50 mls @ 12.5 mls/hr IV Q8 [facility] Last Admin: 03/27/20 16:02 Dose: 12.5 mls/hr Documented by: Insulin Glargine (Insulin Glargine 100 Units/Ml Pen) 10 units SC BREAKFAST [facility] Last Admin: 03/27/20 08:00 Dose: Not Given Documented by: Insulin Human Lispro (Insulin Lispro 100 Unit/Ml Insuln.Pen) 0 unit SC ACHS [facility]; Protocol Last Admin: 03/27/20 16:07 Dose: 1 u Documented by: Levetiracetam (Levetiracetam 500 Mg Tablet) 500 mg PO BID [facility] Loratadine (Loratadine 10 Mg Tablet) 10 mg PO DAILY [facility] Last Admin: 03/27/20 10:20 Dose: 10 mg Documented by: Meloxicam (Meloxicam 15 Mg Tablet) 15 mg PO DAILY [facility] Last Admin: 03/27/20 10:19 Dose: 15 mg Documented by: Ondansetron HCl (Ondansetron 4 Mg/2 Ml Vial) 4 mg IV Q8H PRN PRN PRN Reason: NAUSEA/VOMITING Oxybutynin Chloride (Oxybutynin 5 Mg Tablet) 5 mg PO BID [facility] Last Admin: 03/26/20 16:57 Dose: Not Given Documented by: Risperidone (Risperidone 0.5 Mg Tablet) 0.5 mg PO BID [facility] Last Admin: 03/27/20 12:21 Dose: 0.5 mg Documented by: Sodium Chloride (0.9% Saline Lock 10 Ml Syringe) 10 - 40 ml IV UD PRN PRN Reason: SALINE FLUSH Last Admin: 03/26/20 23:07 Dose: 10 ml Documented by: STROKE Vital Signs/Narrative: Vital Signs Temp Pulse Resp BP Pulse Ox 03/27/20 16:08 98.1 F 78 12 140/78 H 86 03/27/20 15:59 77 Medical Necessity - Tobacco Use Smoking Status: Current every day smoker Tobacco Use: Cigarettes Assessment/Plan All Active Problems (Last Reviewed 03/26/20 @ 07:[address] Kurt Gore MD) Hyperglycemia (Acute) Dehydration (Acute) Leukocytosis (Acute) Hyperglycemia due to type 2 diabetes mellitus (Acute) MICHELE (acute kidney injury) (Acute) Hyperosmolar hyponatremia (Acute) Acidosis (Acute) Hyperkalemia (Acute) HHNC (hyperglycemic hyperosmolar nonketotic coma) (Acute) Blind left eye (Resolved) 1. Hyperosmolar hyperglycemia with metabolic acidosis/MICHELE/hyperkalemia/IDDM 2 -A1c is 13.7, and in discussion with pharmacy she has not filled her insulin in a few months -She did well with IV fluids and an insulin drip -Will adjust her insulin dosing and continue to teach proper usage and the reason why she needs to take her insulin -Potassium, and creatinine have both improved with IV fluids and control of her blood sugar -Metabolic acidosis secondary to lactic acid elevation from her hyperglycemia. Currently no sign of infection blood cultures and urine cultures are pending. We will continue with Zosyn and Vanco for now, however no clear sign of sepsis at the moment. If a source of infection is found and this can be reclassified -Chest x-ray was unremarkable as it had a similar appearance to her chest x-ray in October 2019 -Pneumonia is unlikely, and Covid test was negative 2. Schizophrenia -Now that she is able to take p.o., will resume her risperidone, hydroxyzine, Cymbalta 3. History of grand mal seizures -Stable -Continue with Saran DVT: Heparin Inpatient E&M: [id number] [facility] Hosp L2
[2020-03-27] MEDS: hydrOXYzine PAM 25 MG Capsule 50 MG PO (20:47)
[2020-03-27] MEDS: levETIRAcetam 500 MG Tablet PO (20:47)
[2020-03-27] MEDS: Doxazosin 1 MG Tablet 1.5 MG PO (20:47)
[2020-03-27] MEDS: DULoxetine Hcl 30 MG Capsule PO (20:47)
[2020-03-27 23:01] LABS: Bedside Glucose 189 mg/dL (70-110)
[2020-03-28] VITALS (14 sets, daily range): BP systolic 139–152; BP diastolic 69–91; PULSE 63–83; RESP 14–18; TEMP 36.5–37; O2SAT 87–94
[2020-03-28] MEDS: 0.9% Saline Lock 10 ML Syringe IV ×2 (00:03→05:11)
[2020-03-28] MEDS: 0.45% Normal Saline 1,000 ML 100 ML IV ×2 (04:01→20:59)
--- NOTE | 2020-03-28 04:06 | NURSING ---
ortiz cath pulled and emptied for 650
[2020-03-28] MEDS: Heparin Injection (Vial) 5,000 UNIT/ML VIAL 5000 UNIT SC ×3 (05:14→21:07)
[2020-03-28 06:05] LABS: Absolute Neutrophil Count 7.2 X10^3/uL (2.0-7.7); Basophil# 0.08 X10^3/uL; Basophil% 0.8 % (0-1); Eosinophil# 0.36 X10^3/uL; Eosinophils% 3.5 % (0-5); Hemoglobin 13.5 g/dL (12.0-15.0); Lymphocyte % 17.5 % (19-41); Mean Corpuscular Hgb 25.4 pg (27.0-32.0); Mean Corpuscular Volume 84.7 fL (81-99); Mean Platelet Vol. 10.9 fl (6.2-12.0); Monocyte# 0.82 X10^3/uL; NRBC Flagged by Analyzer 0 % (0-5); Neutrophil # 7.19 X10^3/uL (2.7-7.7); Neutrophil % 69.6 % (47-70); POSITIVE MORPHOLOGY YES; Platelet Count 231 K/mm3 (150-450); RBC Distribution Width CV 21.2 % (11.6-14.6); RBC Distribution Width SD 63.4 fl (35.1-43.9); Red Blood Count 5.31 M/mm3 (4.2-5.4); White Blood Count 10.3 K/mm3 (4.4-11.0)
[2020-03-28 06:11] LABS: Differential Indicated SCAN CRITERIA MET
[2020-03-28 06:29] LABS: Anion Gap 4 (5-15); BUN 10 mg/dL (7-18); BUN/Creat Ratio 11.4 RATIO (10-20); Chloride 106 mmol/L (98-107); Creatinine, Serum 0.88 mg/dL (0.55-1.02); EST Glomerular Filtration Rate 72 mL/min (>60); Est Glom Filt Rate - Afr Amer 87 mL/min (>60); Glucose 246 mg/dL (74-106); Potassium 3.8 mmol/L (3.5-5.1); Sodium Level 140 mmol/L (136-145)
[2020-03-28 06:30] LABS: Vancomycin, Trough Level 6.5 ug/mL (5.0-15.0)
--- NOTE | 2020-03-28 06:37 | PCM.RX.CS ---
Consult Pharmacy has been consulted to manage selected antiobiotic: Vancomycin Type of Consult: Follow-up Suspected Infection: Sepsis Prior Doses of Antibiotics Received/Current Regimen: Medications Vancomycin HCl 1,250 mg/ (Sodium Chloride) 275 mls @ 167 mls/hr IV Q12H [facility] Vancomycin HCl 750 mg/ Sodium (Chloride) 265 mls @ 250 mls/hr IV Q24H [facility] Stop: 03/28/20 08:00 Last Admin: 03/28/20 06:35 Dose: 250 mls/hr Labs: Sodium 140 mmol/L (136-145) 03/28/20 05:30 Potassium 3.8 mmol/L (3.5-5.1) 03/28/20 05:30 Chloride 106 mmol/L (98-107) 03/28/20 05:30 Carbon Dioxide 30.0 mmol/L (21.0-32.0) 03/28/20 05:30 Anion Gap 4 (5-15) L 03/28/20 05:30 BUN 10 mg/dL (7-18) 03/28/20 05:30 Creatinine 0.88 mg/dL (0.55-1.02) 03/28/20 05:30 Est GFR (MDRD) Af Amer 87 mL/min (>60) 03/28/20 05:30 Est GFR (MDRD) Non-Af 72 mL/min (>60) 03/28/20 05:30 BUN/Creatinine Ratio 11.4 RATIO (10-20) 03/28/20 05:30 Glucose 246 mg/dL (74-106) H 03/28/20 05:30 Vancomycin Trough 6.5 ug/mL (5.0-15.0) 03/28/20 05:30 Microbiology: Microbiology 03/27/20 19:43 Stool C. difficile DNA Amplification - Final Weight used for dosin.1 kg Estimated Creatinine Clearance: 92 Goal Trough: 15-20 mcg/mL Pharmacy Plan for Drug Dosing: With improving renal function, the vancomycin trough level drawn was low at 6.5. Will increase dosing to 1250mg q12h and re-draw trough prior to 4th dose of new regimen. Pharmacy Service will continue to monitor and adjust dosing as required. Follow-Up Labs: Trough Vancomycin Labs to be done on [date and time ordered]: 03/30/20 @6830
[2020-03-28 06:47] LABS: Differential Comment SCANNED
[2020-03-28 06:48] LABS: Anisocytosis 1+; Macrocytosis RARE; Microcytosis RARE; Platelet Estimate ADEQUATE (ADEQ); Platelet Morphology LARGE; Polychromasia RARE
[2020-03-28 08:40] LABS: Bedside Glucose 243 mg/dL (70-110)
[2020-03-28] MEDS: Insulin Lispro 100 UNIT/ML INSULN.PEN SC ×4 (09:37→21:07)
[2020-03-28] MEDS: Loratadine 10 MG Tablet PO (09:40)
[2020-03-28] MEDS: Meloxicam 15 MG Tablet PO (09:41)
[2020-03-28] MEDS: levETIRAcetam 500 MG Tablet PO ×2 (09:41→21:07)
[2020-03-28] MEDS: DULoxetine Hcl 30 MG Capsule PO ×2 (09:41→21:07)
[2020-03-28] MEDS: RisperiDONE 0.5 MG Tablet PO ×2 (09:41→21:07)
[2020-03-28] MEDS: hydrOXYzine PAM 25 MG Capsule 50 MG PO ×2 (09:42→21:03)
[2020-03-28 11:11] LABS: Bedside Glucose 269 mg/dL (70-110)
--- NOTE | 2020-03-28 11:22 | PN_ITS ---
Patient Problems: Active and Suspected Problems (Last Reviewed 03/26/20 @ 07:[address] Kurt Gore MD) Hyperglycemia (Acute) Dehydration (Acute) Leukocytosis (Acute) Hyperglycemia due to type 2 diabetes mellitus (Acute) MICHELE (acute kidney injury) (Acute) Hyperosmolar hyponatremia (Acute) Acidosis (Acute) Hyperkalemia (Acute) HHNC (hyperglycemic hyperosmolar nonketotic coma) (Acute) Subjective: Doing better, she knows where she is and she knows what year it is today. Though she does not remember why she is here. Vitals/I&O's: Vital Signs Temp Pulse Resp BP Pulse Ox 98.6 F 78 14 147/91 H 93 03/28/20 08:19 03/28/20 10:53 03/28/20 08:25 03/28/20 08:19 03/28/20 08:32 Oxygen Flow Rate (L/min) 1.5 Oxygen Delivery Method Nasal Cannula Weight: 169 lb 15.622 oz Body Mass Index (BMI) 26.6 Finger Stick Blood Glucose 119 Intake and Output for Last 24 Hours 03/26/20 03/27/20 03/28/20 23:59 23:59 23:59 Intake Total 5029.16 / 5029.16 2614.38 / 2734.38 1298.34 / 1298.34 Output Total 2850 / 2850 1400 / 1950 1200 / 1200 Balance 2179.16 / 2179.16 1214.38 / 784.38 98.34 / 98.34 General: Alert, Cooperative, No apparent distress HEENT: Atraumatic, PERRLA, EOMI, Normocephalic Oral: Moist Mucosa Neck: Supple, No JVD Lungs: Normal air movement, No rhonchi, No wheeze, No rales, Diminished Cardiovascular: Regular rate, Regular Rhythm, Normal S1, Normal S2, No murmurs Abdomen: Soft, Non Tender, Non-Distended, No Hepato-splenomegaly Extremities: No edema, Capillary Refill Less than 3 Seconds Skin: No rashes, No breakdown Neurological: Neuro grossly intact, Sensory exam intact to light touch and pain Psych/Mental Status: Flat Affect Microbiology Past 72 Hours 03/26/20 05:24 Blood Culture (Wb) - Anticubital Left Blood Culture - Preliminary No growth in 48 hours. 03/26/20 05:00 Blood Culture (Wb) - Anticubital Right Blood Culture - Preliminary No growth in 48 hours. 03/27/20 19:43 Stool C. difficile DNA Amplification - Final Laboratory Results 03/27/20 12:19: POC Glucose 220 H 03/27/20 12:58: POC Glucose 252 H 03/27/20 16:06: POC Glucose 174 H 03/27/20 20:56: POC Glucose 189 H 03/28/20 05:30: Vancomycin Trough 6.5 03/28/20 05:30: Sodium 140, Potassium 3.8, Chloride 106, Carbon Dioxide 30.0, Anion Gap 4 L, BUN 10, Creatinine 0.88, Estim Creat Clear Calc 70.80, Est GFR (MDRD) Af Amer 87, Est GFR (MDRD) Non-Af 72, BUN/Creatinine Ratio 11.4, Glucose 246 H, Calcium 8.0 L 03/28/20 05:30: WBC 10.3, RBC 5.31, Hgb 13.5, Hct 45.0, MCV 84.7, MCH 25.4 L, MCHC 30.0 L, RDW Std Deviation 63.4 H, RDW Coeff of Krista 21.2 H, Plt Count 231, MPV 10.9, Immature Gran % (Auto) 0.600, Neut % (Auto) 69.6, Lymph % (Auto) 17.5 L, [place] % (Auto) 8.0, Eos % (Auto) 3.5, Baso % (Auto) 0.8, Absolute Neuts (auto) 7.2, Absolute Lymphs (auto) 1.80, Nucleated RBC % 0, Differential Comment SCANNED, Platelet Estimate ADEQUATE, Plt Morphology Comment LARGE, Polychromasia RARE, Anisocytosis 1+, Microcytosis RARE, Macrocytosis RARE 03/28/20 08:17: POC Glucose 243 H 03/28/20 11:03: POC Glucose 269 H Current Medications Dextrose (Dextrose 50%-Water 25 Gm/50 Ml Disp.Syrin) 0 gm IV X1 PRN; Protocol PRN Reason: Hypoglycemia Protocol Doxazosin Mesylate (Doxazosin 1 Mg Tablet) 1.5 mg PO QHS [facility] Last Admin: 03/27/20 20:47 Dose: 1.5 mg Documented by: Duloxetine HCl (Duloxetine Hcl 30 Mg Capsule) 30 mg PO BID [facility] Last Admin: 03/28/20 09:41 Dose: 30 mg Documented by: Glucagon (Glucagon 1 Mg/Ml Syringe) 1 mg IM .X1 PRN PRN Reason: Hypoglycemia Heparin Sodium (Porcine) (Heparin Injection (Vial) 5,000 Unit/Ml Vial) 5,000 unit SC Q8 [facility] Last Admin: 03/28/20 05:14 Dose: 5,000 unit Documented by: Hydroxyzine Pamoate (Hydroxyzine Magda 25 Mg Capsule) 50 mg PO BID [facility] Last Admin: 03/28/20 09:42 Dose: 50 mg Documented by: Vancomycin IV Pharmacy to Dose (1 ea/ Sodium Chloride) 500 mls @ 250 mls/hr IV X1 PRN; Protocol PRN Reason: Rx to Dose Sodium Chloride () 250 mls @ 15 mls/hr IV .[id number] PRN PRN Reason: Saline Flush Last Infusion: 03/28/20 05:11 Dose: 0 mls/hr Documented by: Sodium Chloride () 250 mls @ 15 mls/hr IV .[id number] PRN PRN Reason: Additional IVPB Infusion Sodium Chloride () 1,000 mls @ 100 mls/hr IV .Q10H [facility] Last Admin: 03/28/20 10:03 Dose: Not Given Documented by: Piperacillin Sod/Tazobactam (Sod 3.375 gm/ Sodium Chloride) 50 mls @ 12.5 mls/hr IV Q8 [facility] Last Infusion: 03/28/20 09:10 Dose: Infused Documented by: Vancomycin HCl 1,250 mg/ (Sodium Chloride) 275 mls @ 167 mls/hr IV Q12H [facility] Insulin Glargine (Insulin Glargine 100 Units/Ml Pen) 20 units SC BREAKFAST [facility] Last Admin: 03/28/20 09:38 Dose: 20 u Documented by: Insulin Human Lispro (Insulin Lispro 100 Unit/Ml Insuln.Pen) 0 unit SC ACHS [facility]; Protocol Last Admin: 03/28/20 11:05 Dose: 3 u Documented by: Levetiracetam (Levetiracetam 500 Mg Tablet) 500 mg PO BID [facility] Last Admin: 03/28/20 09:41 Dose: 500 mg Documented by: Loratadine (Loratadine 10 Mg Tablet) 10 mg PO DAILY [facility] Last Admin: 03/28/20 09:40 Dose: 10 mg Documented by: Meloxicam (Meloxicam 15 Mg Tablet) 15 mg PO DAILY [facility] Last Admin: 03/28/20 09:41 Dose: 15 mg Documented by: Ondansetron HCl (Ondansetron 4 Mg/2 Ml Vial) 4 mg IV Q8H PRN PRN PRN Reason: NAUSEA/VOMITING Oxybutynin Chloride (Oxybutynin 5 Mg Tablet) 5 mg PO BID [facility] Last Admin: 03/26/20 16:57 Dose: Not Given Documented by: Risperidone (Risperidone 0.5 Mg Tablet) 0.5 mg PO BID [facility] Last Admin: 03/28/20 09:41 Dose: 0.5 mg Documented by: Sodium Chloride (0.9% Saline Lock 10 Ml Syringe) 10 - 40 ml IV UD PRN PRN Reason: SALINE FLUSH Last Admin: 03/28/20 05:11 Dose: 10 ml Documented by: STROKE Vital Signs/Narrative: Vital Signs Temp Pulse Resp BP Pulse Ox 03/28/20 10:53 78 03/28/20 08:32 93 03/28/20 08:25 63 14 92 03/28/20 08:19 98.6 F 63 14 147/91 H 93 03/28/20 07:28 83 03/28/20 07:25 92 Medical Necessity - Tobacco Use Smoking Status: Current every day smoker Tobacco Use: Cigarettes Assessment/Plan All Active Problems (Last Reviewed 03/26/20 @ 07:[address] Kurt Gore MD) Hyperglycemia (Acute) Dehydration (Acute) Leukocytosis (Acute) Hyperglycemia due to type 2 diabetes mellitus (Acute) MICHELE (acute kidney injury) (Acute) Hyperosmolar hyponatremia (Acute) Acidosis (Acute) Hyperkalemia (Acute) HHNC (hyperglycemic hyperosmolar nonketotic coma) (Acute) Blind left eye (Resolved) 1. Hyperosmolar hyperglycemia with metabolic acidosis/MICHELE/hyperkalemia/IDDM 2 -A1c is 13.7, and in discussion with pharmacy she has not filled her insulin in a few months -She did well with IV fluids and an insulin drip, she is back on long-acting and sliding scale insulin -Will adjust her insulin dosing and continue to teach proper usage and the reason why she needs to take her insulin -Potassium, and creatinine have both improved with IV fluids and control of her blood sugar -Metabolic acidosis secondary to lactic acid elevation from her hyperglycemia. Currently no sign of infection blood cultures and urine cultures are pending. We will continue with Zosyn and Vanco for now, however no clear sign of sepsis at the moment. If a source of infection is found and this can be reclassified -Chest x-ray was unremarkable as it had a similar appearance to her chest x-ray in October 2019 -Pneumonia is unlikely, and Covid test was negative 2. Schizophrenia -Now that she is able to take p.o., will resume her risperidone, hydroxyzine, Cymbalta 3. History of grand mal seizures -Stable -Continue with [place] DVT: Heparin Inpatient E&M: 76289 Subs Hosp L2
--- NOTE | 2020-03-28 12:35 | CASEMGMT ---
SW spoke w/pt in room, she is alert and oriented at this time, knows where she is, who she is, what day it is. SW asked pt about her plan at discharge. She states she plans to return home. She states she feels she is moving well enough to return home at discharge, with her boyfriend. She states she and her boyfriend have been together for 10 years. She states that he can help her at home. She has a walker and a cane that she uses at her baseline. SW asked pt about her being unkempt when she came in; pt was not able to speak to this as she was confused when she got here. SW asked pt about help at home, they have no help at present. They do their best with cooking and cleaning, use insurance provided transportation to get to appointments. SW asked about pt's mental health, she states she has depression and anxiety, has manic depression. SW asked if she was ever given a diagnosis, she states it's schizophrenia. Pt states she is active with [facility] and gets her meds for schizophrenia through [facility]. She states she was at [facility] three weeks ago, has been going in person and not doing virtual appointments. Pt feels here mental health is controlled at this time, declined any additional referrals for this. SW asked about POA, she states her boyfriend is her medical POA, they have completed the forms in the past. SW asked to have boyfriend bring in papers at some point in the future. SW let pt know her boyfriend's voicemail is full, asked her to have him check his voicemail. SW asked pt about home care, home O2. Pt would like home health. She is not on home oxygen at present. She has no preference for home health care. APRIL explained we will need to find one that takes her insurance as initially she wanted [facility] but they don't take her insurance. APRIL let CM know about pt wanting home health care and possibly needing O2. SW remains available should any additional social service needs arise. BEKA Aparicio
--- NOTE | 2020-03-28 13:02 | CT_ITS ---
STUDY: CTA CHEST REASON FOR EXAM: Female, 49 years old. PE RADIATION DOSAGE (If Supplied By Facility): CTDIvol = ( 12.59 ) mGy, DLP = ( 457.29 ) mGycm TECHNIQUE: The examination was performed with the intravenous administration of IV 100mL Isovue-370. Post-processing of the angiographic images was performed, with multiplanar reformation and 3D reconstruction. Individualized dose optimization techniques were used for this CT. COMPARISON: Comparison is made with prior study dated 09/01/2019. FINDINGS: Normal enhancement of the main pulmonary artery and right and left pulmonary arteries. Normal enhancement of the bilateral peripheral pulmonary arteries. There is no demonstrated pulmonary embolism. Normal thoracic aorta and visualized great vessels. There is no demonstrated aortic dissection. Normal heart and pericardium. Normal mediastinum. Normal hilar regions. Normal visualized trachea and bronchi. The lungs are well expanded. Small bilateral pleural effusions right greater than left. Mild degree of pulmonary infiltrate in the lateral aspect of the lingular segment of the left upper lobe. Mild increased markings in the lateral aspect of the right middle. Consolidative infiltrates are seen at both lung bases worse on the right side. Normal chest wall structures. Normal osseous structures. Normal visualized upper abdomen. CT/CTA Chest W/WO Contrast IMPRESSION: As compared to prior study, the pleural effusions are new. There has been a mild progression of the previously described infiltrates although a similar pattern was seen on prior study. No evidence of pulmonary embolism. Electronically Signed: Carlos Borges, at 14:32 EST , Service support ,
--- NOTE | 2020-03-28 13:45 | CASEMGMT ---
Addendum entered by Celeste Pinzon 03/28/20 16:26: Call back from [facility] and they do have not staffing for nursing at this time, so referral sent to [facility] and then call back from [facility] and she states they do not have staffing for therapy at this time. This KIARRA SAHA will have to f/u on Tuesday as most [facility] are closing at this time. Adolfo PLUNKETT CM Addendum entered by Celeste Pinzon 03/28/20 15:51: Call back to [facility] and per Pam, no decision whether they will take pt at this time but they are all working from home so she will send some messages out. Green sheet on chart but HHC undetermined at this time. Adolfo PLUNKETT CM Original Note: Pt states no preference for HHC agency at this time. HHC referral faxed to [facility] at this time for SN, PT/OT, aide. Pt may also need to be sent home on oxygen and states no preference for DME company at this time. Awaiting call back from [facility] to see if they can accept pt at this time. Green sheet to be placed on chart for possible home oxygen need and HHC once agency accepts. Adolfo PLUNKETT CM
--- NOTE | 2020-03-28 14:01 | NURSING ---
Read and reviewed SN documentation
--- NOTE | 2020-03-28 14:47 | NURSING ---
Pt ranges from 87%-92% on room air. SPO2 goes up briefly w/ cough and deep breathing. Will recheck; pt currently on room air without c/o dyspnea.
[2020-03-28] MEDS: traMADol 50 MG Tablet 100 MG PO (16:49)
[2020-03-28 17:00] LABS: Bedside Glucose 168 mg/dL (70-110)
[2020-03-28] MEDS: Doxazosin 1 MG Tablet 1.5 MG PO (21:03)
[2020-03-28] MEDS: Oxybutynin 5 MG Tablet PO (21:07)
[2020-03-28 21:25] LABS: Bedside Glucose 199 mg/dL (70-110)
[2020-03-29] VITALS (11 sets, daily range): BP systolic 134–159; BP diastolic 78–85; PULSE 69–86; RESP 15–18; TEMP 36.3–37; O2SAT 86–96
[2020-03-29] MEDS: Heparin Injection (Vial) 5,000 UNIT/ML VIAL 5000 UNIT SC ×3 (05:03→21:50)
[2020-03-29] MEDS: Insulin Lispro 100 UNIT/ML INSULN.PEN SC ×3 (06:56→16:28)
[2020-03-29 07:00] LABS: Bedside Glucose 183 mg/dL (70-110)
[2020-03-29] MEDS: Furosemide 40 MG/4 ML Vial IV (07:59)
[2020-03-29] MEDS: 0.9% Saline Lock 10 ML Syringe IV (08:00)
--- NOTE | 2020-03-29 08:13 | CPS ---
Pt placed on 2 lpm. Nurse aware of change
[2020-03-29] MEDS: Oxybutynin 5 MG Tablet PO ×2 (09:17→21:50)
[2020-03-29] MEDS: DULoxetine Hcl 30 MG Capsule PO ×2 (09:17→21:49)
[2020-03-29] MEDS: levETIRAcetam 500 MG Tablet PO ×2 (09:17→21:51)
[2020-03-29] MEDS: Loratadine 10 MG Tablet PO (09:18)
[2020-03-29] MEDS: RisperiDONE 0.5 MG Tablet PO ×2 (09:18→21:52)
[2020-03-29] MEDS: hydrOXYzine PAM 25 MG Capsule 50 MG PO ×2 (09:18→21:52)
[2020-03-29] MEDS: Meloxicam 15 MG Tablet PO (09:19)
[2020-03-29 12:00] LABS: Bedside Glucose 182 mg/dL (70-110)
[2020-03-29] MEDS: traMADol 50 MG Tablet 100 MG PO ×2 (14:16→22:01)
--- NOTE | 2020-03-29 15:11 | PCM.PN.HOSP ---
Patient Problems: Active and Suspected Problems (Last Reviewed 03/26/20 @ 07:[address] Kurt Gore MD) Hyperglycemia (Acute) Dehydration (Acute) Leukocytosis (Acute) Hyperglycemia due to type 2 diabetes mellitus (Acute) MICHELE (acute kidney injury) (Acute) Hyperosmolar hyponatremia (Acute) Acidosis (Acute) Hyperkalemia (Acute) HHNC (hyperglycemic hyperosmolar nonketotic coma) (Acute) Subjective: Doing better though little short of breath. No issues overnight Vitals/I&O's: Vital Signs Temp Pulse Resp BP Pulse Ox 98.6 F 76 18 159/83 H 93 03/29/20 15:03 03/29/20 15:03 03/29/20 15:03 03/29/20 15:03 03/29/20 15:03 Oxygen Flow Rate (L/min) 2 Oxygen Delivery Method Nasal Cannula Weight: 168 lb 3.403 oz Body Mass Index (BMI) 26.6 Finger Stick Blood Glucose 119 Intake and Output for Last 24 Hours 03/27/20 03/28/20 03/29/20 23:59 23:59 23:59 Intake Total 2614.38 / 2734.38 1905.01 / 2145.01 1791.66 / 1791.66 Output Total 1400 / 1950 1200 / 1200 100 / 100 Balance 1214.38 / 784.38 705.01 / 945.01 1691.66 / 1691.66 General: Alert, Cooperative, No apparent distress HEENT: Atraumatic, PERRLA, EOMI, Normocephalic Oral: Moist Mucosa Neck: Supple, No JVD Lungs: Normal air movement, No rhonchi, No wheeze, No rales, Diminished Cardiovascular: Regular rate, Regular Rhythm, Normal S1, Normal S2, No murmurs Abdomen: Soft, Non Tender, Non-Distended, No Hepato-splenomegaly Extremities: No edema, Capillary Refill Less than 3 Seconds Skin: No rashes, No breakdown Neurological: Neuro grossly intact, Sensory exam intact to light touch and pain Psych/Mental Status: Flat Affect Microbiology Past 72 Hours 03/26/20 05:21 Urine Catheter - Morales Urine Culture - Final Yeast, not Glory albicans 03/26/20 05:24 Blood Culture (Wb) - Anticubital Left Blood Culture - Preliminary No growth in 48 hours. 03/26/20 05:00 Blood Culture (Wb) - Anticubital Right Blood Culture - Preliminary No growth in 48 hours. 03/27/20 19:43 Stool C. difficile DNA Amplification - Final Laboratory Results 03/26/20 05:25: COVID-19 (NUSRAT) Not Detected 03/28/20 16:49: POC Glucose 168 H 03/28/20 20:56: POC Glucose 199 H 03/29/20 06:55: POC Glucose 183 H 03/29/20 11:21: POC Glucose 182 H Current Medications Dextrose (Dextrose 50%-Water 25 Gm/50 Ml Disp.Syrin) 0 gm IV X1 PRN; Protocol PRN Reason: Hypoglycemia Protocol Doxazosin Mesylate (Doxazosin 1 Mg Tablet) 1.5 mg PO QHS [facility] Last Admin: 03/28/20 21:03 Dose: 1.5 mg Documented by: Duloxetine HCl (Duloxetine Hcl 30 Mg Capsule) 30 mg PO BID [facility] Last Admin: 03/29/20 09:17 Dose: 30 mg Documented by: Glucagon (Glucagon 1 Mg/Ml Syringe) 1 mg IM .X1 PRN PRN Reason: Hypoglycemia Heparin Sodium (Porcine) (Heparin Injection (Vial) 5,000 Unit/Ml Vial) 5,000 unit SC Q8 [facility] Last Admin: 03/29/20 13:39 Dose: 5,000 unit Documented by: Hydroxyzine Pamoate (Hydroxyzine Magda 25 Mg Capsule) 50 mg PO BID [facility] Last Admin: 03/29/20 09:18 Dose: 50 mg Documented by: Sodium Chloride () 250 mls @ 15 mls/hr IV .[id number] PRN PRN Reason: Saline Flush Last Infusion: 03/28/20 05:11 Dose: 0 mls/hr Documented by: Sodium Chloride () 250 mls @ 15 mls/hr IV .[id number] PRN PRN Reason: Additional IVPB Infusion Sodium Chloride () 1,000 mls @ 100 mls/hr IV .Q10H [facility] Last Infusion: 03/29/20 13:40 Dose: 0 mls/hr Documented by: Piperacillin Sod/Tazobactam (Sod 3.375 gm/ Sodium Chloride) 50 mls @ 12.5 mls/hr IV Q8 [facility] Last Admin: 03/29/20 13:38 Dose: 12.5 mls/hr Documented by: Insulin Glargine (Insulin Glargine 100 Units/Ml Pen) 20 units SC BREAKFAST [facility] Last Admin: 03/29/20 08:00 Dose: 20 u Documented by: Insulin Human Lispro (Insulin Lispro 100 Unit/Ml Insuln.Pen) 0 unit SC ACHS [facility]; Protocol Last Admin: 03/29/20 11:23 Dose: 1 u Documented by: Levetiracetam (Levetiracetam 500 Mg Tablet) 500 mg PO BID [facility] Last Admin: 03/29/20 09:17 Dose: 500 mg Documented by: Loratadine (Loratadine 10 Mg Tablet) 10 mg PO DAILY [facility] Last Admin: 03/29/20 09:18 Dose: 10 mg Documented by: Meloxicam (Meloxicam 15 Mg Tablet) 15 mg PO DAILY [facility] Last Admin: 03/29/20 09:19 Dose: 15 mg Documented by: Ondansetron HCl (Ondansetron 4 Mg/2 Ml Vial) 4 mg IV Q8H PRN PRN PRN Reason: NAUSEA/VOMITING Oxybutynin Chloride (Oxybutynin 5 Mg Tablet) 5 mg PO BID [facility] Last Admin: 03/29/20 09:17 Dose: 5 mg Documented by: Risperidone (Risperidone 0.5 Mg Tablet) 0.5 mg PO BID [facility] Last Admin: 03/29/20 09:18 Dose: 0.5 mg Documented by: Sodium Chloride (0.9% Saline Lock 10 Ml Syringe) 10 - 40 ml IV UD PRN PRN Reason: SALINE FLUSH Last Admin: 03/29/20 08:00 Dose: 10 ml Documented by: Tramadol HCl (Tramadol 50 Mg Tablet) 100 mg PO Q6H PRN PRN PRN Reason: Pain Score 6-10 Last Admin: 03/29/20 14:16 Dose: 100 mg Documented by: STROKE Vital Signs/Narrative: Vital Signs Temp Pulse Resp BP Pulse Ox 03/29/20 15:03 98.6 F 76 18 159/83 H 93 03/29/20 13:37 91 Medical Necessity - Tobacco Use Smoking Status: Current every day smoker Tobacco Use: Cigarettes Assessment/Plan All Active Problems (Last Reviewed 03/26/20 @ 07:[address] Kurt Gore MD) Hyperglycemia (Acute) Dehydration (Acute) Leukocytosis (Acute) Hyperglycemia due to type 2 diabetes mellitus (Acute) MICHELE (acute kidney injury) (Acute) Hyperosmolar hyponatremia (Acute) Acidosis (Acute) Hyperkalemia (Acute) HHNC (hyperglycemic hyperosmolar nonketotic coma) (Acute) Blind left eye (Resolved) 1. Hyperosmolar hyperglycemia with metabolic acidosis/MICHELE/hyperkalemia/IDDM 2 -A1c is 13.7, and in discussion with pharmacy she has not filled her insulin in a few months -She did well with IV fluids and an insulin drip, she is back on long-acting and sliding scale insulin -Will adjust her insulin dosing and continue to teach proper usage and the reason why she needs to take her insulin -Potassium, and creatinine have both improved with IV fluids and control of her blood sugar -Metabolic acidosis secondary to lactic acid elevation from her hyperglycemia. Blood cultures are negative and urine cultures growing yeast therefore will discontinue both Zosyn and vancomycin -Chest x-ray was unremarkable as it had a similar appearance to her chest x-ray in October 2019, however she continues to require oxygen therefore CT scan of the chest was performed which demonstrated no PE but did show bilateral pleural effusions, given the amount of fluid she received will give her a dose of Lasix this morning and reevaluate tomorrow -Pneumonia is unlikely, and Covid test was negative 2. Schizophrenia -Now that she is able to take p.o., will resume her risperidone, hydroxyzine, Cymbalta 3. History of grand mal seizures -Stable -Continue with [place] DVT: Heparin Inpatient E&M: [id number] [facility] Hosp L2
[2020-03-29 17:30] LABS: Bedside Glucose 182 mg/dL (70-110)
[2020-03-29] MEDS: 0.45% Normal Saline 1,000 ML 100 ML IV (21:47)
[2020-03-29] MEDS: Doxazosin 1 MG Tablet 1.5 MG PO (21:48)
[2020-03-30] VITALS (12 sets, daily range): BP systolic 138–182; BP diastolic 75–86; PULSE 64–78; RESP 15–16; TEMP 36.7–37; O2SAT 3–97
[2020-03-30 00:36] LABS: Bedside Glucose 135 mg/dL (70-110)
[2020-03-30] MEDS: Heparin Injection (Vial) 5,000 UNIT/ML VIAL 5000 UNIT SC ×3 (06:14→21:16)
[2020-03-30 06:35] LABS: Bedside Glucose 88 mg/dL (70-110)
[2020-03-30 07:20] LABS: Anion Gap 5 (5-15); BUN 13 mg/dL (7-18); BUN/Creat Ratio 14.6 RATIO (10-20); Calcium,Total 8.4 mg/dL (8.5-10.1); Chloride 103 mmol/L (98-107); Creatinine, Serum 0.89 mg/dL (0.55-1.02); EST Glomerular Filtration Rate 71 mL/min (>60); Est Glom Filt Rate - Afr Amer 86 mL/min (>60); Estimated Creatinine Clearance 70.01 ml/min; Glucose 80 mg/dL (74-106); Potassium 3.3 mmol/L (3.5-5.1); Sodium Level 139 mmol/L (136-145)
[2020-03-30] MEDS: Furosemide 40 MG/4 ML Vial IV ×2 (07:46→13:38)
[2020-03-30] MEDS: traMADol 50 MG Tablet 100 MG PO ×2 (07:46→21:15)
[2020-03-30] MEDS: 0.9% Saline Lock 10 ML Syringe IV ×2 (07:46→13:38)
[2020-03-30] MEDS: 0.45% Normal Saline 1,000 ML 100 ML IV (07:47)
[2020-03-30] MEDS: DULoxetine Hcl 30 MG Capsule PO ×2 (08:58→21:14)
[2020-03-30] MEDS: levETIRAcetam 500 MG Tablet PO ×2 (08:58→21:13)
[2020-03-30] MEDS: Meloxicam 15 MG Tablet PO (08:58)
[2020-03-30] MEDS: Oxybutynin 5 MG Tablet PO ×2 (08:58→21:13)
[2020-03-30] MEDS: hydrOXYzine PAM 25 MG Capsule 50 MG PO ×2 (08:58→21:13)
[2020-03-30] MEDS: Loratadine 10 MG Tablet PO (08:58)
[2020-03-30] MEDS: RisperiDONE 0.5 MG Tablet PO ×2 (08:59→21:14)
[2020-03-30] MEDS: Insulin Lispro 100 UNIT/ML INSULN.PEN SC ×3 (11:05→22:16)
[2020-03-30 11:15] LABS: Bedside Glucose 172 mg/dL (70-110)
--- NOTE | 2020-03-30 13:15 | PCM.PN.HOSP ---
Patient Problems: Active and Suspected Problems (Last Reviewed 03/26/20 @ 07:[address] Kurt Gore MD) Hyperglycemia (Acute) Dehydration (Acute) Leukocytosis (Acute) Hyperglycemia due to type 2 diabetes mellitus (Acute) MICHELE (acute kidney injury) (Acute) Hyperosmolar hyponatremia (Acute) Acidosis (Acute) Hyperkalemia (Acute) HHNC (hyperglycemic hyperosmolar nonketotic coma) (Acute) Subjective: Doing well, still requiring oxygen, without it she drops down to 86% on room air Vitals/I&O's: Vital Signs Temp Pulse Resp BP Pulse Ox 98.1 F 78 16 138/75 H 91 03/30/20 08:55 03/30/20 08:55 03/30/20 08:55 03/30/20 08:55 03/30/20 09:00 Oxygen Flow Rate (L/min) [ 90 AMBULATION with Oxygen] Oxygen Flow Rate (L/min) 2 Oxygen Delivery Method Room Air Weight: 167 lb 1.766 oz Body Mass Index (BMI) 26.6 Finger Stick Blood Glucose 119 Intake and Output for Last 24 Hours 03/28/20 03/29/20 03/30/20 23:59 23:59 23:59 Intake Total 1905.01 / 2145.01 2533.33 / 3133.33 2385 / 2385 Output Total 1200 / 1200 300 / 300 Balance 705.01 / 945.01 2233.33 / 2833.33 2385 / 2385 General: Alert, Cooperative, No apparent distress HEENT: Atraumatic, PERRLA, EOMI, Normocephalic Oral: Moist Mucosa Neck: Supple, No JVD Lungs: Normal air movement, No rhonchi, No wheeze, No rales, Diminished Cardiovascular: Regular rate, Regular Rhythm, Normal S1, Normal S2, No murmurs Abdomen: Soft, Non Tender, Non-Distended, No Hepato-splenomegaly Extremities: No edema, Capillary Refill Less than 3 Seconds Skin: No rashes, No breakdown Neurological: Neuro grossly intact, Sensory exam intact to light touch and pain Psych/Mental Status: Flat Affect Microbiology Past 72 Hours 03/26/20 05:21 Urine Catheter - Morales Urine Culture - Final Yeast, not Glory albicans 03/26/20 05:24 Blood Culture (Wb) - Anticubital Left Blood Culture - Preliminary No growth in 48 hours. 03/26/20 05:00 Blood Culture (Wb) - Anticubital Right Blood Culture - Preliminary No growth in 48 hours. 03/27/20 19:43 Stool C. difficile DNA Amplification - Final Laboratory Results 03/29/20 16:26: POC Glucose 182 H 03/29/20 21:46: POC Glucose 135 H 03/30/20 05:30: Vancomycin Trough 14.0 03/30/20 05:30: Sodium 139, Potassium 3.3 L, Chloride 103, Carbon Dioxide 31.0, Anion Gap 5, BUN 13, Creatinine 0.89, Estim Creat Clear Calc 70.01, Est GFR (MDRD) Af Amer 86, Est GFR (MDRD) Non-Af 71, BUN/Creatinine Ratio 14.6, Glucose 80, Calcium 8.4 L 03/30/20 06:12: POC Glucose 88 03/30/20 11:03: POC Glucose 172 H Current Medications Dextrose (Dextrose 50%-Water 25 Gm/50 Ml Disp.Syrin) 0 gm IV X1 PRN; Protocol PRN Reason: Hypoglycemia Protocol Doxazosin Mesylate (Doxazosin 1 Mg Tablet) 1.5 mg PO QHS [facility] Last Admin: 03/29/20 21:48 Dose: 1.5 mg Documented by: Duloxetine HCl (Duloxetine Hcl 30 Mg Capsule) 30 mg PO BID [facility] Last Admin: 03/30/20 08:58 Dose: 30 mg Documented by: Glucagon (Glucagon 1 Mg/Ml Syringe) 1 mg IM .X1 PRN PRN Reason: Hypoglycemia Heparin Sodium (Porcine) (Heparin Injection (Vial) 5,000 Unit/Ml Vial) 5,000 unit SC Q8 [facility] Last Admin: 03/30/20 06:14 Dose: 5,000 unit Documented by: Hydroxyzine Pamoate (Hydroxyzine Magda 25 Mg Capsule) 50 mg PO BID [facility] Last Admin: 03/30/20 08:58 Dose: 50 mg Documented by: Sodium Chloride () 250 mls @ 15 mls/hr IV .[id number] PRN PRN Reason: Saline Flush Last Infusion: 03/28/20 05:11 Dose: 0 mls/hr Documented by: Sodium Chloride () 250 mls @ 15 mls/hr IV .[id number] PRN PRN Reason: Additional IVPB Infusion Insulin Glargine (Insulin Glargine 100 Units/Ml Pen) 20 units SC BREAKFAST [facility] Last Admin: 03/30/20 07:57 Dose: 20 u Documented by: Insulin Human Lispro (Insulin Lispro 100 Unit/Ml Insuln.Pen) 0 unit SC ACHS [facility]; Protocol Last Admin: 03/30/20 11:05 Dose: 1 u Documented by: Levetiracetam (Levetiracetam 500 Mg Tablet) 500 mg PO BID [facility] Last Admin: 03/30/20 08:58 Dose: 500 mg Documented by: Loratadine (Loratadine 10 Mg Tablet) 10 mg PO DAILY [facility] Last Admin: 03/30/20 08:58 Dose: 10 mg Documented by: Meloxicam (Meloxicam 15 Mg Tablet) 15 mg PO DAILY [facility] Last Admin: 03/30/20 08:58 Dose: 15 mg Documented by: Ondansetron HCl (Ondansetron 4 Mg/2 Ml Vial) 4 mg IV Q8H PRN PRN PRN Reason: NAUSEA/VOMITING Oxybutynin Chloride (Oxybutynin 5 Mg Tablet) 5 mg PO BID [facility] Last Admin: 03/30/20 08:58 Dose: 5 mg Documented by: Risperidone (Risperidone 0.5 Mg Tablet) 0.5 mg PO BID [facility] Last Admin: 03/30/20 08:59 Dose: 0.5 mg Documented by: Sodium Chloride (0.9% Saline Lock 10 Ml Syringe) 10 - 40 ml IV UD PRN PRN Reason: SALINE FLUSH Last Admin: 03/30/20 07:46 Dose: 10 ml Documented by: Tramadol HCl (Tramadol 50 Mg Tablet) 100 mg PO Q6H PRN PRN PRN Reason: Pain Score 6-10 Last Admin: 03/30/20 07:46 Dose: 100 mg Documented by: Medical Necessity - Tobacco Use Smoking Status: Current every day smoker Tobacco Use: Cigarettes Assessment/Plan All Active Problems (Last Reviewed 03/26/20 @ 07:[address] Kurt Gore MD) Hyperglycemia (Acute) Dehydration (Acute) Leukocytosis (Acute) Hyperglycemia due to type 2 diabetes mellitus (Acute) MICHELE (acute kidney injury) (Acute) Hyperosmolar hyponatremia (Acute) Acidosis (Acute) Hyperkalemia (Acute) HHNC (hyperglycemic hyperosmolar nonketotic coma) (Acute) Blind left eye (Resolved) 1. Hyperosmolar hyperglycemia with metabolic acidosis/MICHELE/hyperkalemia/IDDM 2 -A1c is 13.7, and in discussion with pharmacy she has not filled her insulin in a few months -She did well with IV fluids and an insulin drip, she is back on long-acting and sliding scale insulin -Will adjust her insulin dosing and continue to teach proper usage and the reason why she needs to take her insulin -Potassium, and creatinine have both improved with IV fluids and control of her blood sugar -Metabolic acidosis secondary to lactic acid elevation from her hyperglycemia. Blood cultures are negative and urine cultures growing yeast therefore will discontinue both Zosyn and vancomycin -Chest x-ray was unremarkable as it had a similar appearance to her chest x-ray in October 2019, however she continues to require oxygen therefore CT scan of the chest was performed which demonstrated no PE but did show bilateral pleural effusions, given the amount of fluid she received will give her a dose of Lasix this morning and afternoon and reevaluate tomorrow -Pneumonia is unlikely, and Covid test was negative 2. Schizophrenia -Now that she is able to take p.o., will resume her risperidone, hydroxyzine, Cymbalta 3. History of grand mal seizures -Stable -Continue with Saran DVT: Heparin Inpatient E&M: [id number] [facility] Hosp L2
[2020-03-30 17:20] LABS: Bedside Glucose 209 mg/dL (70-110)
[2020-03-30] MEDS: Doxazosin 1 MG Tablet 1.5 MG PO (21:14)
[2020-03-30 22:20] LABS: Bedside Glucose 221 mg/dL (70-110)
[2020-03-31] VITALS (11 sets, daily range): BP systolic 116–163; BP diastolic 68–88; PULSE 67–85; RESP 15–16; TEMP 36.5–37; O2SAT 84–96
[2020-03-31] MEDS: Heparin Injection (Vial) 5,000 UNIT/ML VIAL 5000 UNIT SC ×3 (05:55→22:07)
[2020-03-31] MEDS: 0.9% Saline Lock 10 ML Syringe IV (05:55)
[2020-03-31 06:56] LABS: Bedside Glucose 174 mg/dL (70-110)
[2020-03-31 07:06] LABS: Absolute Lymphocyte Count 1.89 X10^3/uL (0.83-4.51); Absolute Neutrophil Count 3.7 X10^3/uL (2.0-7.7); Basophil# 0.08 X10^3/uL; Basophil% 1.2 % (0-1); Eosinophil# 0.48 X10^3/uL; Hematocrit 47.6 % (37-47); Hemoglobin 14.4 g/dL (12.0-15.0); Lymphocyte # 1.89 X10^3/ul (4.0); Lymphocyte % 27.8 % (19-41); Mean Corp Hgb Conc 30.3 g/dL (32-36); Mean Corpuscular Hgb 25.9 pg (27.0-32.0); Mean Corpuscular Volume 85.6 fL (81-99); Mean Platelet Vol. 10.3 fl (6.2-12.0); Monocyte# 0.58 X10^3/uL; Monocyte% 8.5 % (0-10); NRBC Flagged by Analyzer 0 % (0-5); Neutrophil # 3.74 X10^3/uL (2.7-7.7); Neutrophil % 54.9 % (47-70); POSITIVE MORPHOLOGY YES; Platelet Count 215 K/mm3 (150-450); RBC Distribution Width CV 20.9 % (11.6-14.6); RBC Distribution Width SD 63.1 fl (35.1-43.9); Red Blood Count 5.56 M/mm3 (4.2-5.4); White Blood Count 6.8 K/mm3 (4.4-11.0)
[2020-03-31 07:07] LABS: Differential Indicated SCAN CRITERIA MET
[2020-03-31 07:29] LABS: Anisocytosis 1+
[2020-03-31 07:38] LABS: Anion Gap 3 (5-15); BUN 17 mg/dL (7-18); Calcium,Total 8.5 mg/dL (8.5-10.1); Chloride 104 mmol/L (98-107); EST Glomerular Filtration Rate 70 mL/min (>60); Est Glom Filt Rate - Afr Amer 85 mL/min (>60); Estimated Creatinine Clearance 69.23 ml/min; Glucose 165 mg/dL (74-106); Potassium 3.9 mmol/L (3.5-5.1); Sodium Level 140 mmol/L (136-145)
[2020-03-31] MEDS: Insulin Lispro 100 UNIT/ML INSULN.PEN SC ×3 (08:46→22:27)
[2020-03-31] MEDS: Oxybutynin 5 MG Tablet PO ×2 (08:48→22:07)
[2020-03-31] MEDS: Loratadine 10 MG Tablet PO (08:48)
[2020-03-31] MEDS: DULoxetine Hcl 30 MG Capsule PO ×2 (08:48→22:06)
[2020-03-31] MEDS: hydrOXYzine PAM 25 MG Capsule 50 MG PO ×2 (08:49→22:08)
[2020-03-31] MEDS: Meloxicam 15 MG Tablet PO (08:49)
[2020-03-31] MEDS: levETIRAcetam 500 MG Tablet PO ×2 (08:49→22:08)
[2020-03-31] MEDS: RisperiDONE 0.5 MG Tablet PO ×2 (08:50→22:08)
[2020-03-31] MEDS: traMADol 50 MG Tablet 100 MG PO ×3 (08:55→22:15)
--- NOTE | 2020-03-31 11:43 | CASEMGMT ---
SW spoke with patient as per recharger she cannot give herself insulin. SW met with patient. Introduced self and role at [facility]. Patient said she can give herself insulin at home. She has not been doing it here as the nurses have been. She would not be able to do it while here as she does not have her glasses. SW again said there is no problem giving herself insulin. SW asked her if she still feels she is ok to return home. She said she feels fine and is ready to go home to see her kitties. Elisabeth [employer] ANALYST
[2020-03-31 12:21] LABS: Bedside Glucose 373 mg/dL (70-110)
--- NOTE | 2020-03-31 13:17 | CASEMGMT ---
Message left with [facility] to call this RN CM back and unable to reach [facility] or [facility] at this time. Calls to [facility], [facility], and [facility] and they all state they do not take [facility] at this time. Per [facility], they can not take pt at this time. [facility] states they take [facility], staff [place] area and have SN, PT/OT, aide available at this time so referral faxed to them at this time. [facility] cannot state whether they can staff area at this time, referral held off until hear back from [facility]. Per Aidan PLUNKETT, pt does qualify for home oxygen at this time and needs 3liters continous. Dr. Ramirez updated, voices understanding. Per Dr. Ramirez, he is holding off on her discharge for today at this time as now giving lasix 40mg bid. Adolfo PLUNKETT CM
--- NOTE | 2020-03-31 13:43 | PN_ITS ---
Patient Problems: Active and Suspected Problems (Last Reviewed 03/26/20 @ 07:[address] Kurt Gore MD) Hyperglycemia (Acute) Dehydration (Acute) Leukocytosis (Acute) Hyperglycemia due to type 2 diabetes mellitus (Acute) MICHELE (acute kidney injury) (Acute) Hyperosmolar hyponatremia (Acute) Acidosis (Acute) Hyperkalemia (Acute) HHNC (hyperglycemic hyperosmolar nonketotic coma) (Acute) Reason for Visit: HHS with acute hypoxic respiratory failure most likely secondary to bibasilar atelectasis/fluid overload and bilateral pleural effusion Objective: Patient blood pressure is controlled. Still on 3 L of oxygen continuously. At rest, she is not short of breath. Patient has history of schizophrenia. Physical exam General: Alert, Oriented x3, Cooperative HEENT: Atraumatic, PERRLA, EOMI, Normocephalic Oral: No Gingival or Mucosal Lesions/ Ulcerations Neck: Supple, No JVD, Negative Carotid Bruits Lungs: Air entry diminished in bilateral lung bases. No crepitation/rhonchi. Bilateral pleural effusion, right more than left Cardiovascular: Regular rate, Regular Rhythm, Normal S1, Normal S2, No murmurs Abdomen: Bowel Sounds Present, Soft, Non Tender, Non-Distended : No renal angle tenderness. No suprapubic tenderness. Extremities: No edema, Capillary Refill Less than 3 Seconds Skin: No rashes, No breakdown Musculoskeletal: No Tenderness to Palpation of Joints or Extremities Neurological: Cranial nerves II-XII grossly intact, Deep Tendon Reflexes 2+/4 and Symmetrical, Neuro grossly intact Psych/Mental Status: Normal Affect, Appropriate. Vitals/I&O's: Vital Signs Temp Pulse Resp BP Pulse Ox 98.5 F 84 16 116/83 H 84 03/31/20 08:38 03/31/20 08:38 03/31/20 08:38 03/31/20 08:38 03/31/20 13:09 Oxygen Flow Rate (L/min) [ 3 AMBULATION with Oxygen] Oxygen Flow Rate (L/min) [ 2 AMBULATING on Room Air] Oxygen Flow Rate (L/min) [At 0 REST on Room Air] Oxygen Flow Rate (L/min) 2 Oxygen Delivery Method Nasal Cannula Weight: 166 lb 14.239 oz Body Mass Index (BMI) 26.6 Finger Stick Blood Glucose 119 Intake and Output for Last 24 Hours 03/29/20 03/30/20 03/31/20 23:59 23:59 23:59 Intake Total 2533.33 / 3133.33 2785 / 3035 500 / 500 Output Total 300 / 300 3 / 3 Balance 2233.33 / 2833.33 2785 / 3035 497 / 497 Microbiology Past 72 Hours 03/26/20 05:24 Blood Culture (Wb) - Anticubital Left Blood Culture - Final No growth in 5 days. 03/26/20 05:00 Blood Culture (Wb) - Anticubital Right Blood Culture - Final No growth in 5 days. 03/26/20 05:21 Urine Catheter - Morales Urine Culture - Final Yeast, not Glory albicans Laboratory Results 03/30/20 16:36: POC Glucose 209 H 03/30/20 22:14: POC Glucose 221 H 03/31/20 06:06: WBC 6.8, RBC 5.56 H, Hgb 14.4, Hct 47.6 H, MCV 85.6, MCH 25.9 L, MCHC 30.3 L, RDW Std Deviation 63.1 H, RDW Coeff of Krista 20.9 H, Plt Count 215, MPV 10.3, Immature Gran % (Auto) 0.600, Neut % (Auto) 54.9, Lymph % (Auto) 27.8, White % (Auto) 8.5, Eos % (Auto) 7.0 H, Baso % (Auto) 1.2 H, Absolute Neuts (auto) 3.7, Absolute Lymphs (auto) 1.89, Nucleated RBC % 0, Anisocytosis 1+ 03/31/20 06:06: Sodium 140, Potassium 3.9, Chloride 104, Carbon Dioxide 33.0 H, Anion Gap 3 L, BUN 17, Creatinine 0.90, Estim Creat Clear Calc 69.23, Est GFR (MDRD) Af Amer 85, Est GFR (MDRD) Non-Af 70, BUN/Creatinine Ratio 19.0, Glucose 165 H, Calcium 8.5 03/31/20 06:47: POC Glucose 174 H 03/31/20 11:43: POC Glucose 373 H Current Medications Dextrose (Dextrose 50%-Water 25 Gm/50 Ml Disp.Syrin) 0 gm IV X1 PRN; Protocol PRN Reason: Hypoglycemia Protocol Doxazosin Mesylate (Doxazosin 1 Mg Tablet) 1.5 mg PO QHS [facility] Last Admin: 03/30/20 21:14 Dose: 1.5 mg Documented by: Duloxetine HCl (Duloxetine Hcl 30 Mg Capsule) 30 mg PO BID [facility] Last Admin: 03/31/20 08:48 Dose: 30 mg Documented by: Furosemide (Furosemide 40 Mg/4 Ml Vial) 40 mg IV BID@1000,1800 [facility] Glucagon (Glucagon 1 Mg/Ml Syringe) 1 mg IM .X1 PRN PRN Reason: Hypoglycemia Heparin Sodium (Porcine) (Heparin Injection (Vial) 5,000 Unit/Ml Vial) 5,000 unit SC Q8 [facility] Last Admin: 03/31/20 05:55 Dose: 5,000 unit Documented by: Hydroxyzine Pamoate (Hydroxyzine Magda 25 Mg Capsule) 50 mg PO BID [facility] Last Admin: 03/31/20 08:49 Dose: 50 mg Documented by: Sodium Chloride () 250 mls @ 15 mls/hr IV .[id number] PRN PRN Reason: Saline Flush Last Infusion: 03/28/20 05:11 Dose: 0 mls/hr Documented by: Sodium Chloride () 250 mls @ 15 mls/hr IV .[id number] PRN PRN Reason: Additional IVPB Infusion Insulin Glargine (Insulin Glargine 100 Units/Ml Pen) 20 units SC BREAKFAST [facility] Last Admin: 03/31/20 08:47 Dose: 20 u Documented by: Insulin Human Lispro (Insulin Lispro 100 Unit/Ml Insuln.Pen) 0 unit SC ACHS [facility]; Protocol Last Admin: 03/31/20 11:44 Dose: 6 u Documented by: Levetiracetam (Levetiracetam 500 Mg Tablet) 500 mg PO BID [facility] Last Admin: 03/31/20 08:49 Dose: 500 mg Documented by: Loratadine (Loratadine 10 Mg Tablet) 10 mg PO DAILY [facility] Last Admin: 03/31/20 08:48 Dose: 10 mg Documented by: Ondansetron HCl (Ondansetron 4 Mg/2 Ml Vial) 4 mg IV Q8H PRN PRN PRN Reason: NAUSEA/VOMITING Oxybutynin Chloride (Oxybutynin 5 Mg Tablet) 5 mg PO BID [facility] Last Admin: 03/31/20 08:48 Dose: 5 mg Documented by: Risperidone (Risperidone 0.5 Mg Tablet) 0.5 mg PO BID [facility] Last Admin: 03/31/20 08:50 Dose: 0.5 mg Documented by: Sodium Chloride (0.9% Saline Lock 10 Ml Syringe) 10 - 40 ml IV UD PRN PRN Reason: SALINE FLUSH Last Admin: 03/31/20 05:55 Dose: 10 ml Documented by: Tramadol HCl (Tramadol 50 Mg Tablet) 100 mg PO Q6H PRN PRN PRN Reason: Pain Score 6-10 Last Admin: 03/31/20 08:55 Dose: 100 mg Documented by: STROKE Vital Signs/Narrative: Vital Signs Pulse Ox Pulse Ox Pulse Ox 03/31/20 13:09 85 91 84 Medical Necessity - Tobacco Use Smoking Status: Current every day smoker Tobacco Use: Cigarettes Assessment/Plan All Active Problems (Last Reviewed 03/26/20 @ 07:[address] Kurt Gore MD) Hyperglycemia (Acute) Dehydration (Acute) Leukocytosis (Acute) Hyperglycemia due to type 2 diabetes mellitus (Acute) MICHELE (acute kidney injury) (Acute) Hyperosmolar hyponatremia (Acute) Acidosis (Acute) Hyperkalemia (Acute) HHNC (hyperglycemic hyperosmolar nonketotic coma) (Acute) 1. Hyperosmolar hyperglycemia with metabolic acidosis/MICHELE/hyperkalemia/IDDM 2: Patient was admitted and was treated with IV fluid and insulin drip and was changed to long-acting insulin sliding scale insulin. Has high anion gap meta bolic acidosis, 13 mainly due to lactic acidosis, it was 4.6 which improved with IV fluid. Electrolytes are corrected. Chest x-ray shows bilateral atelectasis and further she had a CT scan which shows bilateral right more than left small pleural effusion. She was given Lasix. Hyperkalemia resolved. 2. Acute hypoxic respiratory failure most likely secondary to fluid overload/bilateral pleural effusion and atelectasis: Started on Lasix 40 mg IV twice daily. She has positive fluid balance of about 9.6 L. Aggressive bronchopulmonary hygiene. Discussed with the case therapist. 3. Schizophrenia resume her risperidone, hydroxyzine, Cymbalta 3. History of grand mal seizures -Stable -Continue with Keppra DVT: Heparin Inpatient E&M: [id number] Subs Hosp L2
[2020-03-31] MEDS: Furosemide 40 MG/4 ML Vial IV ×2 (14:47→22:05)
[2020-03-31 17:35] LABS: Bedside Glucose 149 mg/dL (70-110)
[2020-03-31] MEDS: Doxazosin 1 MG Tablet 1.5 MG PO (22:05)
[2020-03-31 23:51] LABS: Bedside Glucose 202 mg/dL (70-110)
[2020-04-01] VITALS (7 sets, daily range): BP systolic 99–121; BP diastolic 58–68; PULSE 60–77; RESP 16–18; TEMP 36.6–37.1; O2SAT 84–97
[2020-04-01] MEDS: traMADol 50 MG Tablet 100 MG PO (06:15)
[2020-04-01] MEDS: Heparin Injection (Vial) 5,000 UNIT/ML VIAL 5000 UNIT SC (06:15)
[2020-04-01 06:45] LABS: Anion Gap 3 (5-15); BUN 24 mg/dL (7-18); BUN/Creat Ratio 20.5 RATIO (10-20); Calcium,Total 8.5 mg/dL (8.5-10.1); Chloride 103 mmol/L (98-107); Creatinine, Serum 1.17 mg/dL (0.55-1.02); EST Glomerular Filtration Rate 52 mL/min (>60); Est Glom Filt Rate - Afr Amer 63 mL/min (>60); Estimated Creatinine Clearance 53.25 ml/min; Glucose 120 mg/dL (74-106); Magnesium 2.4 mg/dL (1.6-2.6); Potassium 3.9 mmol/L (3.5-5.1); Sodium Level 138 mmol/L (136-145)
[2020-04-01 06:55] LABS: Bedside Glucose 130 mg/dL (70-110)
[2020-04-01] MEDS: Loratadine 10 MG Tablet PO (08:31)
[2020-04-01] MEDS: DULoxetine Hcl 30 MG Capsule PO (08:32)
[2020-04-01] MEDS: 0.9% Saline Lock 10 ML Syringe IV (08:32)
[2020-04-01] MEDS: Oxybutynin 5 MG Tablet PO (08:32)
[2020-04-01] MEDS: levETIRAcetam 500 MG Tablet PO (08:32)
[2020-04-01] MEDS: Furosemide 40 MG/4 ML Vial IV (08:32)
[2020-04-01] MEDS: hydrOXYzine PAM 25 MG Capsule 50 MG PO (08:33)
[2020-04-01] MEDS: RisperiDONE 0.5 MG Tablet PO (08:33)
--- NOTE | 2020-04-01 09:48 | CASEMGMT ---
Addendum entered by Celeste Pinzon 04/01/20 12:33: Call back from [facility] and they cannot accept pt at this time. Call to Deepti at [facility] and she is updated that order to be changed to SN, aide at this time and she states they can take pt at this time. New order and cPt voices no further questions/concerns/needs at this time. Haleigh PLUNKETT updated, voices understanding. Adolfo RN MARIA A Addendum entered by Celeste Pinzon 04/01/20 12:15: Call to Emily at [facility] and she is aware that pt will need O2 today for discharge, voices understanding. Call to [facility] and they cannot tell me at this time whether they can take pt yet at this time. They are supposed to call this RN CM back. Adolfo PLUNKETT CM Addendum entered by Celeste Pinzon 04/01/20 11:24: Message left again with [facility] to see if their staffing is any better this week and they might be able to take pt. Call back to [facility] and per Nathaly, they cannot staff therapy still but could do nursing, if pt does not need therapy. Per JERMAIN Hernandez, pt did well with therapy today and she states should be fine at home without [facility] therapy. Awaiting call back from [facility] and if they cannot take pt, then will set up with [place] for mcc and aide, if possible. Pt does qualify for 3liters at rest and 4 liters with ambulation at this time. Script/referral faxed to [facility] at this time, per pt request. Adolfo PLUNKETT CM Addendum entered by Celeste Pinzon 04/01/20 10:48: Call back from [facility] and they state they do not take pt's [facility] at this time. Referral faxed to [facility] at this time. Adolfo PLUNKETT CM Original Note: Call to Danny at [facility] as they have not called this RN CM back to notify that they can take pt at this time. Message left this am, then call back from Danny and he states he will look for referral and call this RN CM back dea. Adolfo PLUNKETT CM
--- NOTE | 2020-04-01 10:53 | DCINST_ITS ---
- Discharge Diagnoses Current Active Problems: Current Active and Chronic Problems (Last Reviewed 03/26/20 @ 07:[address] Kurt Gore MD) Type II diabetes mellitus (Chronic) Depression (Chronic) Anxiety (Chronic) Peripheral neuropathy (Chronic) Hyperglycemia (Acute) Dehydration (Acute) Leukocytosis (Acute) Hyperglycemia due to type 2 diabetes mellitus (Acute) MICHELE (acute kidney injury) (Acute) Hyperosmolar hyponatremia (Acute) Acidosis (Acute) Hyperkalemia (Acute) HHNC (hyperglycemic hyperosmolar nonketotic coma) (Acute) You will use the following diet at home:: Cardiac Your food should be the consistency of: Regular Discharge Activity: May Not Drive Call your doctor if you observe: Fever of 101 or Higher, Coldness, Increased Pain, Numbness or Tingling, Inability to urinate, Inability to have a bowel movement, Shortness of breath, Dizziness, Fainting spells, Swelling in the ankles, Chest pain, Prolonged hiccoughing, Increased palpitations (irregular heartbeat), Calf discomfort, Uncontrolled pain Allergies/Adverse Reactions: Allergies Sulfa (Sulfonamide Antibiotics) Allergy (Verified 03/26/20 05:21) Hives Medications to take at Discharge Pregabalin [Lyrica] 200 mg PO BID 10/27/15 traMADol [Ultram] 100 mg PO Q6H PRN PRN 10/27/15 Pregabalin [Lyrica] 100 mg PO LUNCH 07/26/16 Albuterol Inhaler [Ventolin Hfa] 2 puff INHALATION Q4H PRN PRN 06/10/17 Fluticasone Propionate [Flovent Diskus] 50 mcg NASAL BID 06/10/17 Oxybutynin Chloride [Ditropan Xl] 5 mg PO BID 06/10/17 Cetirizine HCl [All Day Allergy] 10 mg PO DAILY 10/24/19 Duloxetine Hcl [Cymbalta] 30 mg PO BID 10/24/19 Levetiracetam [Keppra] 500 mg PO BID 10/24/19 Prazosin HCl [Minipress] 2 mg PO QHS 10/24/19 Risperidone [Risperdal] 0.25 mg PO BID #60 tab 10/27/19 Phenazopyridine HCl [Pyridium] 200 mg PO BID PRN PRN #6 tab 03/19/20 Acetaminophen [Tylenol] 500 mg PO TID #0 tab 04/01/20 Furosemide [Lasix] 40 mg PO DAILY #30 tab 04/01/20 Hydroxyzine Pamoate [Vistaril] 25 mg PO BID #0 04/01/20 Insulin Glargine [Lantus SoloStar Pen] 20 units SC BREAKFAST #0 pen 04/01/20 The following prescriptions were given: Furosemide [Lasix] 40 mg PO DAILY #30 tab Transmission Status: Pending to [facility] [place] - [id number] Primary Care Physician: Tata Molina MD [Primary Care Provider] - Test Results: Test results from this visit will be discussed in further detail at your follow- up appointment, if applicable. Please Follow Up With: Tata Molina MD When: Tuesday Please Follow Up With: Maynor Luciano MD When: Tuesday Please Follow Up With: Kyle Osman, DO When: IN 4 WEEKS, On O2 3-4 L, copd?, b/l effusion
--- NOTE | 2020-04-01 10:59 | PCM.DC.SUM ---
Discharge Date and Diagnosis - Problem List Patient Problems: Active and Suspected Problems (Last Reviewed 03/26/20 @ 07:[address] Kurt Gore MD) Hyperglycemia (Acute) Dehydration (Acute) Leukocytosis (Acute) Hyperglycemia due to type 2 diabetes mellitus (Acute) MICHELE (acute kidney injury) (Acute) Hyperosmolar hyponatremia (Acute) Acidosis (Acute) Hyperkalemia (Acute) HHNC (hyperglycemic hyperosmolar nonketotic coma) (Acute) Date of Admission: 03/26/20 Date of Discharge: 04/01/20 - Primary Discharge Diagnosis Acute Problems: Active Problems (Last Reviewed 03/26/20 @ 07:[address] Kurt Gore MD) Hyperglycemia (Acute) Dehydration (Acute) Leukocytosis (Acute) Hyperglycemia due to type 2 diabetes mellitus (Acute) MICHELE (acute kidney injury) (Acute) Hyperosmolar hyponatremia (Acute) Acidosis (Acute) Hyperkalemia (Acute) HHNC (hyperglycemic hyperosmolar nonketotic coma) (Acute) - Secondary Discharge Diagnosis Chronic Problems: Chronic Problems (Last Reviewed 03/26/20 @ 07:[address] Kurt Gore MD) Blind left eye (Chronic) Type II diabetes mellitus (Chronic) Depression (Chronic) Anxiety (Chronic) Peripheral neuropathy (Chronic) Hospital Course and Treatment Operations: None Summary of Care Provided: The patient is a 49 year old F with history of type 2 diabetes mellitus and schizophrenia was admitted with confusion with hyperglycemia, glucometer reading high. Patient also had hyperkalemia, MICHELE 3.07, sodium 114 and glucose 1610 with serum osmolarity 359 suggestive of HHS. 1. Hyperosmolar hyperglycemia with metabolic acidosis/MICHELE/hyperkalemia/IDDM 2: Patient was admitted and was treated with IV fluid and insulin drip and was changed to long-acting insulin sliding scale insulin. Has high anion gap metabolic acidosis, 13 mainly due to lactic acidosis, it was 4.6 which improved with IV fluid. Electrolytes are corrected. Chest x-ray shows bilateral atelectasis and further she had a CT scan which shows bilateral right more than left small pleural effusion. 2. Acute hypoxic respiratory failure most likely secondary to fluid overload/bilateral pleural effusion and atelectasis: Started on Lasix 40 mg IV twice daily. She has positive fluid balance of about 9.6 L. Aggressive bronchopulmonary hygiene. patient was started on Lasix 40 mg IV twice daily. Slight increase in creatinine 1.17 from 0.9. Lasix changed to 40 mg p.o. daily. BNP ordered. Follow-up PCP in 1 week with repeat BUN/creatinine and adjustment of Lasix. Patient has history of chronic smoking a pack per day since teenage. Might have COPD on her home medication she has albuterol inhaler as needed and Flovent discus nasal. Follow-up in pulmonary clinic in [address] Osman for PFT. 3. Schizophrenia resume her risperidone, hydroxyzine, Cymbalta 4. History of grand mal seizures -Stable -Continue with Keppra DVT: Heparin Discharge medication reconciliation done. Discharge follow-up instructions completed. Discharge process discussed with the patient and all questions were answered to patient's satisfaction. Total time spent, exact 35 minutes on discharge meds reconciliation, examination, coordination of care with nurses and ancillary staff, review of imaging and blood test and discussion with the patient on follow-up instructions Patient Problems: Active and Suspected Problems (Last Reviewed 03/26/20 @ 07:[address] Kurt Gore MD) Hyperglycemia (Acute) Dehydration (Acute) Leukocytosis (Acute) Hyperglycemia due to type 2 diabetes mellitus (Acute) MICHELE (acute kidney injury) (Acute) Hyperosmolar hyponatremia (Acute) Acidosis (Acute) Hyperkalemia (Acute) HHNC (hyperglycemic hyperosmolar nonketotic coma) (Acute) Objective: Patient states history of smoking since teenage about 1 pack/day. Still on 3 L of oxygen. Pulse ox at 89 % on 4 L of oxygen on ambulation. May have COPD but never had PFT done. Physical exam General: Alert, Oriented x3, Cooperative HEENT: Atraumatic, PERRLA, EOMI, Normocephalic Oral: No Gingival or Mucosal Lesions/ Ulcerations Neck: Supple, No JVD, Negative Carotid Bruits Lungs: Air entry diminished in bilateral lung. No crepitation/rhonchi. Bilateral pleural effusion, right more than left Cardiovascular: Regular rate, Regular Rhythm, Normal S1, Normal S2, No murmurs Abdomen: Bowel Sounds Present, Soft, Non Tender, Non-Distended : No renal angle tenderness. No suprapubic tenderness. Extremities: No edema, Capillary Refill Less than 3 Seconds Skin: No rashes, No breakdown Musculoskeletal: No Tenderness to Palpation of Joints or Extremities Neurological: Cranial nerves II-XII grossly intact, Deep Tendon Reflexes 2+/4 and Symmetrical, Neuro grossly intact Psych/Mental Status: Normal Affect, Appropriate. - Physical Exam Vitals/I&O's: Vital Signs Temp Pulse Resp BP Pulse Ox 98.7 F 77 18 102/63 84 04/01/20 08:40 04/01/20 08:40 04/01/20 08:40 04/01/20 08:40 04/01/20 09:57 Oxygen Flow Rate (L/min) [ 4 AMBULATION with Oxygen] Oxygen Flow Rate (L/min) [ 2 AMBULATING on Room Air] Oxygen Flow Rate (L/min) [At 0 REST on Room Air] Oxygen Flow Rate (L/min) 2 Oxygen Delivery Method Nasal Cannula Weight: 166 lb 0.129 oz Body Mass Index (BMI) 26.6 Finger Stick Blood Glucose 119 Intake and Output for Last 24 Hours 03/30/20 03/31/20 04/01/20 23:59 23:59 23:59 Intake Total 2785 / 3035 500 / 720 460 / 460 Output Total 153 / 153 Balance 2785 / 3035 347 / 567 460 / 460 Microbiology Past 72 Hours 03/26/20 05:24 Blood Culture (Wb) - Anticubital Left Blood Culture - Final No growth in 5 days. 03/26/20 05:00 Blood Culture (Wb) - Anticubital Right Blood Culture - Final No growth in 5 days. 03/26/20 05:21 Urine Catheter - Morales Urine Culture - Final Yeast, not Glory albicans Laboratory Results 03/31/20 11:43: POC Glucose 373 H 03/31/20 17:30: POC Glucose 149 H 03/31/20 22:26: POC Glucose 202 H 04/01/20 05:54: Sodium 138, Potassium 3.9, Chloride 103, Carbon Dioxide 32.0, Anion Gap 3 L, BUN 24 H, Creatinine 1.17 H, Estim Creat Clear Calc 53.25, Est GFR (MDRD) Af Amer 63, Est GFR (MDRD) Non-Af 52 L, BUN/Creatinine Ratio 20.5 H, Glucose 120 H, Calcium 8.5, Magnesium 2.4 04/01/20 06:52: POC Glucose 130 H Current Medications Dextrose (Dextrose 50%-Water 25 Gm/50 Ml Disp.Syrin) 0 gm IV X1 PRN; Protocol PRN Reason: Hypoglycemia Protocol Doxazosin Mesylate (Doxazosin 1 Mg Tablet) 1.5 mg PO QHS [facility] Last Admin: 03/31/20 22:05 Dose: 1.5 mg Documented by: Duloxetine HCl (Duloxetine Hcl 30 Mg Capsule) 30 mg PO BID [facility] Last Admin: 04/01/20 08:32 Dose: 30 mg Documented by: Furosemide (Furosemide 40 Mg/4 Ml Vial) 40 mg IV BID@1000,1800 [facility] Last Admin: 04/01/20 08:32 Dose: 40 mg Documented by: Glucagon (Glucagon 1 Mg/Ml Syringe) 1 mg IM .X1 PRN PRN Reason: Hypoglycemia Heparin Sodium (Porcine) (Heparin Injection (Vial) 5,000 Unit/Ml Vial) 5,000 unit SC Q8 [facility] Last Admin: 04/01/20 06:15 Dose: 5,000 unit Documented by: Hydroxyzine Pamoate (Hydroxyzine Magda 25 Mg Capsule) 50 mg PO BID [facility] Last Admin: 04/01/20 08:33 Dose: 50 mg Documented by: Sodium Chloride () 250 mls @ 15 mls/hr IV .[id number] PRN PRN Reason: Saline Flush Last Infusion: 04/01/20 08:59 Dose: Infused Documented by: Sodium Chloride () 250 mls @ 15 mls/hr IV .[id number] PRN PRN Reason: Additional IVPB Infusion Insulin Glargine (Insulin Glargine 100 Units/Ml Pen) 20 units SC BREAKFAST [facility] Last Admin: 04/01/20 08:31 Dose: 20 u Documented by: Insulin Human Lispro (Insulin Lispro 100 Unit/Ml Insuln.Pen) 0 unit SC ACHS [facility]; Protocol Last Admin: 04/01/20 06:53 Dose: Not Given Documented by: Levetiracetam (Levetiracetam 500 Mg Tablet) 500 mg PO BID [facility] Last Admin: 04/01/20 08:32 Dose: 500 mg Documented by: Loratadine (Loratadine 10 Mg Tablet) 10 mg PO DAILY [facility] Last Admin: 04/01/20 08:31 Dose: 10 mg Documented by: Ondansetron HCl (Ondansetron 4 Mg/2 Ml Vial) 4 mg IV Q8H PRN PRN PRN Reason: NAUSEA/VOMITING Oxybutynin Chloride (Oxybutynin 5 Mg Tablet) 5 mg PO BID [facility] Last Admin: 04/01/20 08:32 Dose: 5 mg Documented by: Risperidone (Risperidone 0.5 Mg Tablet) 0.5 mg PO BID [facility] Last Admin: 04/01/20 08:33 Dose: 0.5 mg Documented by: Sodium Chloride (0.9% Saline Lock 10 Ml Syringe) 10 - 40 ml IV UD PRN PRN Reason: SALINE FLUSH Last Admin: 04/01/20 08:32 Dose: 10 ml Documented by: Tramadol HCl (Tramadol 50 Mg Tablet) 100 mg PO Q6H PRN PRN PRN Reason: Pain Score 6-10 Last Admin: 04/01/20 06:15 Dose: 100 mg Documented by: Discharge Activity: May Not Drive Call your doctor if you observe: Fever of 101 or Higher, Coldness, Increased Pain, Numbness or Tingling, Inability to urinate, Inability to have a bowel movement, Shortness of breath, Dizziness, Fainting spells, Swelling in the ankles, Chest pain, Prolonged hiccoughing, Increased palpitations (irregular heartbeat), Calf discomfort, Uncontrolled pain Home Medications: Medications to take at Discharge Pregabalin [Lyrica] 200 mg PO BID 10/27/15 traMADol [Ultram] 100 mg PO Q6H PRN PRN 10/27/15 Pregabalin [Lyrica] 100 mg PO LUNCH 07/26/16 Albuterol Inhaler [Ventolin Hfa] 2 puff INHALATION Q4H PRN PRN 06/10/17 Fluticasone Propionate [Flovent Diskus] 50 mcg NASAL BID 06/10/17 Oxybutynin Chloride [Ditropan Xl] 5 mg PO BID 06/10/17 Cetirizine HCl [All Day Allergy] 10 mg PO DAILY 10/24/19 Duloxetine Hcl [Cymbalta] 30 mg PO BID 10/24/19 Levetiracetam [Keppra] 500 mg PO BID 10/24/19 Prazosin HCl [Minipress] 2 mg PO QHS 10/24/19 Risperidone [Risperdal] 0.25 mg PO BID #60 tab 10/27/19 Phenazopyridine HCl [Pyridium] 200 mg PO BID PRN PRN #6 tab 03/19/20 Acetaminophen [Tylenol] 500 mg PO TID #0 tab 04/01/20 Furosemide [Lasix] 40 mg PO DAILY #30 tab 04/01/20 Hydroxyzine Pamoate [Vistaril] 25 mg PO BID #0 04/01/20 Insulin Glargine [Lantus SoloStar Pen] 20 units SC BREAKFAST #0 pen 04/01/20 Following Prescriptions Were Given to Patient: Furosemide [Lasix] 40 mg PO DAILY #30 tab Transmission Status: Pending to [facility] [place] - [address] Primary Care Physician: Tata Molina MD [Primary Care Provider] - Please Follow Up With: Tata Molina MD When: Tuesday Please Follow Up With: Maynor Luciano MD When: Tuesday Please Follow Up With: Kyle Osman DO When: IN 4 WEEKS, On O2 3-4 L, copd?, b/l effusion Medical Necessity - Tobacco Use Smoking Status: Current every day smoker Tobacco Use: Cigarettes Meaningful Use Info Meaningful Use Diagnoses (Choose all that apply): None applicable Inpatient E&M: 70261 Disch Hosp
[2020-04-01] MEDS: Insulin Lispro 100 UNIT/ML INSULN.PEN SC (11:39)
[2020-04-01 11:45] LABS: Bedside Glucose 196 mg/dL (70-110)
[2020-04-01 11:53] LABS: BNP,B-Type NATRIURETIC PEPTIDE 37.9 pg/mL (0-100)
--- NOTE | 2020-04-02 15:19 | CASEMGMT ---
KIARRA SAHA DC PHONE CALL DC DATE: 04/02/2020 DC DISPOSITION: Home DC DIAGNOSIS: hyperglycemia LACE/STRATA: 14 F/U APPTS MADE PRIOR TO DC: yes PRESCRIPTIONS ACQUIRED BY PT: yes Call from [employer] stating they had not been able to deliver home oxygen. Call to patient who states she has run out of oxygen but was feeling ok. Pt did not sound short of breath during conversation. Verified patient's home phone number and address and asked her to expect a call from [employer] for delivery. Pt is agreeable. -Call to [employer] and requested they contact pt right away as she has been told to expect the call. Also let them know pt stated her tank is empty and she needs another. Pt will need teaching on how to use concentrator. -Call to [facility], notified patient now has answered her phone and KIARRA SAHA asked her to be available to receive call. They will have the nurse call her. Efrain COPPOLA RN ACM
== END 2020-04-01 14:56 | disposition home or self-care (01) | DRG 420 ==
LOC: ED 06:26 → ICU 06:51 → PCU 03-27 20:11
PROVIDERS: Family Medicine; Admitting Provider Hospitalist; Emergency Provider Emergency Medicine; PCP Internal Medicine; Visit Provider Internal Medicine
DX: E11.01 Type 2 diabetes mellitus with hyperosmolarity with coma (principal); J96.01 Acute respiratory failure with hypoxia; E87.2 Acidosis; E87.5 Hyperkalemia; N17.9 Acute kidney failure, unspecified; J98.11 Atelectasis; J90 Pleural effusion, not elsewhere classified; G40.409 Other generalized epilepsy and epileptic syndromes, not intractable, without status epilepticus; F20.9 Schizophrenia, unspecified; F17.210 Nicotine dependence, cigarettes, uncomplicated; F32.9 Major depressive disorder, single episode, unspecified; F41.9 Anxiety disorder, unspecified; G62.9 Polyneuropathy, unspecified; H54.62 Unqualified visual loss, left eye, normal vision right eye; Z79.1 Long term (current) use of non-steroidal anti-inflammatories (NSAID); Z79.4 Long term (current) use of insulin; E87.1 Hypo-osmolality and hyponatremia; E86.0 Dehydration
CPT/HCPCS: 36415; 36600; 51702; 71045; 71275; 80048; 80053; 80202; 81001; 82009; 82803; 82962; 83036; 83605; 83735; 83880; 83930; 84100; 84484; 85025; 87040; 87086; 87088; 87493; 87635; 93005; 97110; 97116; 97162; 97166; 97530; 97535; 99285; 99406; J7030; J7050; Q9967; A4216; J0610; J1940; J7799; U0002

== ENCOUNTER 2020-04-18 11:14 | Inpatient (IN) | payer MEDICAID, SELFPAY ==
[2020-03-26 08:27] VITALS: BMI 26.6
[2020-04-18] VITALS (10 sets, daily range): BP systolic 137–170; BP diastolic 77–101; PULSE 84–101; RESP 14–21; TEMP 36.2–36.8; O2SAT 88–99; BMI 27.3; BMI 27.4
--- NOTE | 2020-04-18 11:28 | EKG12_ITS ---
Test Reason : Blood Pressure : / mmHG Vent. Rate : 089 BPM Atrial Rate : 089 BPM P-R Int : 126 ms QRS Dur : 094 ms QT Int : 396 ms P-R-T Axes : 070 111 057 degrees QTc Int : 481 ms Normal sinus rhythm Biatrial enlargement Right axis deviation Pulmonary disease pattern RSR' or QR pattern in V1 suggests right ventricular conduction delay Prolonged QT Abnormal ECG Confirmed by LUKAS LYNN, TARIK ([id number]), news copy editor SHAHEED GUEVARA ([id number]) on 04/21/2020 1:11:25 PM Referred By: MAXWELL Confirmed By:TARIK GAYTAN MD
--- NOTE | 2020-04-18 11:29 | CT_ITS ---
STUDY: CT BRAIN WITHOUT CONTRAST REASON FOR EXAM: Female, 49 years old. DECREASED LOC -- FOUND ON TOILET, CONFUSED RADIATION DOSAGE (If Supplied By Facility): CTDIvol = ( 44.99 ) mGy, DLP = ( 779.24 ) mGycm TECHNIQUE: Transaxial CT imaging of the brain was performed without administration of intravenous contrast material. Individualized dose optimization techniques were used for this CT. COMPARISON: Comparison is made with prior study dated 09/01/2019. FINDINGS: Normal soft tissue structures. Normal calvarium. There is mild cerebral atrophy with widening of the extra-axial spaces and ventricular dilatation. Normal white matter tracts of the cerebral hemispheres. Normal basal ganglia and thalami. Normal brainstem. Normal cerebellum. There is no intracranial hemorrhage. There are no findings of an acute ischemic infarction. Normal visualized paranasal sinuses. CT/Brain/Head without Contrast IMPRESSION: Chronic involutional changes of the brain. Electronically Signed: Carlos Borges, at 12:47 EST , Service support ,
--- NOTE | 2020-04-18 11:32 | ED.DCSUM_ITS ---
- ER Visit Summary Date of Service: 04/18/20 Chief Complaint: Weakness and confusion History of Present Illness: The patient is a [address] Rogers. Per EMS patient was found by her home health nurse on the commode weak and confused. Per EMS patient was alert to self only. Her pulse ox was 88% on room air. Her blood sugar was over 500. Patient is lethargic, but arouses to voice. She complains of a headache. She denies any fever, sore throat, cough, chest pain, abdominal pain, nausea, vom iting, diarrhea, dysuria or frequency. However, I do not feel that she is a reliable informant. Physical Examination: Vitals: 97.9, 137/92, 101, 17, 98% on 2 L nasal cannula. General: Well-nourished and well-developed. Unkempt. Head: Normocephalic atraumatic. Neck: Supple, no lymphadenopathy. No JVD. Nontender. Cardiovascular: Regular rate and rhythm. No murmurs. Respiratory: No respiratory distress. Clear to auscultation bilaterally. Abdominal: Soft, nontender, nondistended, normal bowel sounds. No guarding, rebound, or peritoneal signs. Back: Nontender. Extremities: Nontender, no edema. Skin: Normal color, no rash. Neurologic: Lethargic, arouses to voice, moves all extremities well. Test Results: G is sinus at 89. Is unchanged from August of this year. Troponin is negative. Alcohol is negative. Talk screen is negative. CBC shows a white count 12.0 with an H&H of 16.7 52.3. Chem-7 shows a sodium 134, glucose 675, BUN of 37, creatinine 1.84. ABG shows a pH of 7.3 with bicarb of 20.6 and O2 of 58. Ammonia level is 49.0. LFTs show alk phos 146, albumin 3.1, globulin of 4.6. Clinical Impression(s) from Imaging Studies Brain CT 04/18/20 11:29 IMPRESSION: Chronic involutional changes of the brain. Electronically Signed: Carlos Borges, at 12:47 EST , Service support , Chest X-Ray 04/18/20 12:30 IMPRESSION: 5 suggestive of mild degree of bibasilar atelectasis more prominent on the right side although there has been improvement as compared to prior study. Electronically Signed: Carlos Borges, at 12:47 EST , Service support , Emergency Department Course and Treatment: Patient was given a dose of insulin subcu. She was given 2 L normal saline. She is on multiple medications that may affect her level of consciousness as well including Lyrica, tramadol, Vistaril, and Risperdal. However, she definitely still has a decreased level of consciousness. Treatment Plan: Patient will be discussed the hospitalist admitted for further evaluation and treatment. Disposition: Admitted in serious condition. Impression: 1. Mental status change. 2. HHNC. 3. Elevated ammonia level. 4. Acute kidney injury. This note was generated with [employer] dictation software. It may contain incorrect words, spelling, and punctuation that were not noted in review of the chart prior to signing ED Disposition - Plan for ED Patient: Referrals: Tata Molina MD [Primary Care Provider] -
[2020-04-18 11:51] LABS: Bedside Glucose > 500 mg/dL (70-110)
[2020-04-18 11:54] LABS: Absolute Lymphocyte Count 2.49 X10^3/uL (0.83-4.51); Absolute Neutrophil Count 8.2 X10^3/uL (2.0-7.7); Basophil# 0.09 X10^3/uL; Basophil% 0.7 % (0-1); Eosinophil# 0.42 X10^3/uL; Eosinophils% 3.5 % (0-5); Hematocrit 52.3 % (37-47); Hemoglobin 16.7 g/dL (12.0-15.0); Lymphocyte # 2.49 X10^3/ul (4.0); Lymphocyte % 20.7 % (19-41); Mean Corp Hgb Conc 31.9 g/dL (32-36); Mean Corpuscular Hgb 27.2 pg (27.0-32.0); Mean Corpuscular Volume 85.3 fL (81-99); Monocyte% 6.7 % (0-10); NRBC Flagged by Analyzer 0 % (0-5); Neutrophil # 8.16 X10^3/uL (2.7-7.7); Neutrophil % 67.9 % (47-70); Platelet Count 202 K/mm3 (150-450); RBC Distribution Width CV 19.2 % (11.6-14.6); RBC Distribution Width SD 56.9 fl (35.1-43.9); Red Blood Count 6.13 M/mm3 (4.2-5.4)
[2020-04-18] MEDS: 0.9% Normal Saline 1,000 ML 999 ML IV ×2 (11:55→13:16)
[2020-04-18 12:00] LABS: Allen Test Positive; Base Excess 2 mmol/L (-2 to +2); Bicarbonate 28.6 mmol/L (22-26); Blood Gas Specimen Type ART; O2 Delivery Device Cannula; PO2 77 mmHG (75-100); SITE R Radial; SO2 93 % (95-99); Total Carbon Dioxide 30 mmol/L
[2020-04-18 12:11] LABS: ALB/GLOB Ratio 0.7 RATIO (0.9-2.4); AST(SGOT) 27 U/L (15-37); Alanine Aminotransfer ALT/SGPT 45 U/L (13-56); Albumin, Serum 3.1 g/dL (3.2-5.0); Alkaline Phosphatase 146 U/L (45-117); Anion Gap 5 (5-15); BUN 37 mg/dL (7-18); BUN/Creat Ratio 20.1 RATIO (10-20); Calcium,Total 9.6 mg/dL (8.5-10.1); Chloride 98 mmol/L (98-107); Creatinine, Serum 1.84 mg/dL (0.55-1.02); EST Glomerular Filtration Rate 31 mL/min (>60); Est Glom Filt Rate - Afr Amer 37 mL/min (>60); Estimated Creatinine Clearance 33.86 ml/min; Globulin 4.6 g/dL (2.2-4.2); Glucose 675 mg/dL (74-106); Potassium 4.8 mmol/L (3.5-5.1); Protein, Total 7.7 g/dL (6.4-8.2); Sodium Level 134 mmol/L (136-145)
[2020-04-18 12:13] LABS: Color, Urine Yellow (Yellow); Glucose, Dipstick 1000 mg/dl (Normal); Ketone-Dipstick Negative (Negative); Leukocyte Esterase-Dipstick Negative /ul (Negative); Nitrite-Dipstick Negative (Negative); Occult Blood-Urine 25 /ul (Negative); Protein-Dipstick 100 mg/dl (Negative); Specific Gravity, Urine 1.015 (1.002-1.030); Urine Bilirubin Dipstick Negative (Negative); Urine Clarity Cloudy (Clear); Urine Urobilinogen Normal (Normal)
--- NOTE | 2020-04-18 12:30 | RAD_ITS ---
STUDY: X-RAY CHEST REASON FOR EXAM: Female, 49 years old. Confusion and weakness TECHNIQUE: Single AP portable view of the chest. COMPARISON: Comparison is made with prior study of 03/26/2020. FINDINGS: EKG electrodes are seen. Mild increased linear markings at the lung bases slightly more prominent on the right side suggestive of atelectasis. These have improved as compared to prior study. There is no demonstrated pleural abnormality. Normal size heart. Normal mediastinum and rachael. Normal visualized pulmonary arteries. Normal visualized aortic arch and descending thoracic aorta. Normal visualized thoracic spine. Normal visualized ribs, clavicles, and shoulders. There is no demonstrated abnormality of the visualized soft tissue structures of the upper abdomen. RAD/Chest 1 View (Portable) IMPRESSION: 5 suggestive of mild degree of bibasilar atelectasis more prominent on the right side although there has been improvement as compared to prior study. Electronically Signed: Carlos Borges, at 12:47 EST , Service support ,
[2020-04-18 12:34] LABS: Amphetamine Urine VISTA NEGATIVE (<1000 ng/mL); Barbiturate Urine VISTA NEGATIVE (< 200 ng/mL); Benzodiazepine Urine VISTA NEGATIVE (< 200 ng/mL); Cocaine Urine VISTA NEGATIVE (< 300 ng/mL); Ecstacy Urine VISTA NEGATIVE (< 500 ng/mL); Methadone Urine VISTA NEGATIVE (< 300 ng/mL); PCP Urine VISTA NEGATIVE (< 25 ng/mL); THC Urine VISTA NEGATIVE (< 50 ng/mL); Vista UDS pH Range 5
[2020-04-18 12:35] LABS: Alcohol, Blood (Medical)-Serum < 3.0 mg/dL
[2020-04-18] MEDS: Insulin Lispro 100 UNIT/ML INSULN.PEN 12 UNIT SC (13:15)
--- NOTE | 2020-04-18 13:19 | ED.RN ---
Pt will respond to sternal rub.
--- NOTE | 2020-04-18 13:22 | ED.RN ---
Two phone call attempts made to Philip that is in file for person to notify. No answer to calls and voice mailbox is full.
[2020-04-18 13:31] LABS: Bedside Glucose > 500 mg/dL (70-110)
[2020-04-18 14:41] LABS: Bedside Glucose 453 mg/dL (70-110)
--- NOTE | 2020-04-18 16:31 | PCM.HP.STD ---
Problem List (1) Blind left eye Status: Chronic (2) Type II diabetes mellitus Status: Chronic Qualifiers: Diabetes mellitus snf insulin use: with snf use (3) Depression Status: Chronic (4) Anxiety Status: Chronic (5) Peripheral neuropathy Status: Chronic Qualifiers: (6) Hyperglycemia Status: Acute (7) Dehydration Status: Acute (8) Leukocytosis Status: Acute (9) Sepsis due to urinary tract infection Status: Inactive (10) Severe sepsis Status: Inactive (11) Altered level of consciousness Status: Acute (12) Hyperglycemia due to type 2 diabetes mellitus Status: Acute (13) Hypoxemia Status: Acute (14) MICHELE (acute kidney injury) Status: Acute (15) Hyperosmolar hyponatremia Status: Chronic (16) HHNC (hyperglycemic hyperosmolar nonketotic coma) Status: Acute History of Present Illness Date of Admission: 04/18/20 Chief Complaint: Weakness, confusion. The patient is a 49 year old F who presents to emergency room due to weakness and confusion. Patient drowsy on assessment and unable to provide HPI. Patient was recently discharged 04/01/2020 following treatment for hyperosmolar hyperglycemia. Patient has moving all extremities. She arouses briefly to voice and then quickly falls asleep. Per records, she has a past medical history of type 2 diabetes mellitus, schizophrenia, history of grand mal seizures, anxiety/depression. Per ER documentation, patient was found by home health nurse on the commode and was noted to be weak and confused. Her pulse ox was 88% on room air and blood sugar was greater than 500. Past Medical History Past Medical History (Chronic Problems): Chronic Problems (Last Reviewed 03/26/20 @ 07:[address] Kurt Gore MD) Blind left eye (Chronic) Type II diabetes mellitus (Chronic) Depression (Chronic) Anxiety (Chronic) Peripheral neuropathy (Chronic) Hyperosmolar hyponatremia (Chronic) Medical History: Medical History (Last Reviewed 03/26/20 @ 07:[address] Kurt Gore MD) Fibromyalgia M79.7 Schizophrenia F20.9 Allergies Sulfa (Sulfonamide Antibiotics) Allergy (Verified 04/18/20 11:16) Hives Home Medications: Ambulatory Orders Medication Instructions Recorded Pregabalin [Lyrica] 200 mg PO BID 10/27/15 Pregabalin [Lyrica] 100 mg PO LUNCH 07/26/16 Albuterol Inhaler [Ventolin Hfa] 2 puff INHALATION Q4H PRN PRN 06/10/17 Oxybutynin Chloride [Ditropan Xl] 5 mg PO BID 06/10/17 Duloxetine Hcl [Cymbalta] 30 mg PO BID 10/24/19 Levetiracetam [Keppra] 500 mg PO BID 10/24/19 Prazosin HCl [Minipress] 2 mg PO QHS 10/24/19 Acetaminophen [Tylenol] 500 mg PO TID #0 tab 04/01/20 Baclofen [Lioresal] 10 mg PO TID 04/18/20 Cetirizine HCl [Zyrtec] 10 mg PO DAILY 04/18/20 Furosemide [Lasix] 40 mg PO DAILY 04/18/20 Insulin Lispro [Humalog] 16 unit SQ TIDCM 04/18/20 Risperidone 0.5 mg PO BID 04/18/20 hydrOXYzine pamoate capsule 25 mg PO BID 04/18/20 [Vistaril pamoate capsule] Surgical History: cholecystectomy, - - Tubal ligation. 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 Significant other not available to provide history. Paternal History Items: - - Paternal history was unable to be obtained because of confusion. Significant other not available to provide history. Review of Systems Unable to obtain accurate/complete ROS d/t: Unable to obtain ROS due to altered mental status. VTE Information - Inpt Only VTE Present on Admission: No VTE Mechan Device Prophylaxis: None VTE Pharm Prophylaxis ordered?: Yes Patient Problems: Active and Suspected Problems (Last Reviewed 03/26/20 @ 07:[address] Kurt Gore MD) Hyperglycemia (Acute) Dehydration (Acute) Leukocytosis (Acute) Altered level of consciousness (Acute) Hyperglycemia due to type 2 diabetes mellitus (Acute) Hypoxemia (Acute) MICHELE (acute kidney injury) (Acute) HHNC (hyperglycemic hyperosmolar nonketotic coma) (Acute) - Physical Exam Vitals/I&O's: Vital Signs Temp Pulse Resp BP Pulse Ox 98.2 F 88 16 161/96 H 98 04/18/20 16:14 04/18/20 16:14 04/18/20 16:14 04/18/20 16:14 04/18/20 16:14 Oxygen Flow Rate (L/min) 6 Oxygen Delivery Method Nasal Cannula Weight: 169 lb 12.095 oz Body Mass Index (BMI) 27.3 Finger Stick Blood Glucose 453 Intake and Output for Last 24 Hours 04/16/20 04/17/20 04/18/20 23:59 23:59 23:59 Intake Total 1999 Balance 1999 General: No apparent distress, Lethargic HEENT: Atraumatic, PERRLA, EOMI, Normocephalic Oral: Dry Mucosa Neck: Supple, No JVD, Negative Carotid Bruits Lungs: Clear to auscultation, Diminished Cardiovascular: Regular rate, No murmurs Abdomen: Bowel Sounds Present, Soft, Non Tender, Non-Distended Extremities: No clubbing, No cyanosis, No edema, Capillary Refill Less than 3 Seconds Skin: No rashes, No breakdown Musculoskeletal: No Tenderness to Palpation of Joints or Extremities Neurological: Cranial nerves II-XII grossly intact, Neuro grossly intact Psych/Mental Status: - - Unable to assess, lethargic Microbiology Past 72 Hours 04/18/20 11:45 Mucosa - Nose SARS-CoV-2 Antigen (Rapid) - Final Laboratory Results 04/18/20 11:20: WBC 12.0 H, RBC 6.13 H, Hgb 16.7 H, Hct 52.3 H, MCV 85.3, MCH 27.2, MCHC 31.9 L, RDW Std Deviation 56.9 H, RDW Coeff of Krista 19.2 H, Plt Count 202, Immature Gran % (Auto) 0.500, Neut % (Auto) 67.9, Lymph % (Auto) 20.7, [place] % (Auto) 6.7, Eos % (Auto) 3.5, Baso % (Auto) 0.7, Absolute Neuts (auto) 8.2 H, Absolute Lymphs (auto) 2.49, Nucleated RBC % 0 04/18/20 11:20: Sodium 134 L, Potassium 4.8, Chloride 98, Carbon Dioxide 31.0, Anion Gap 5, BUN 37 H, Creatinine 1.84 H, Estim Creat Clear Calc 33.86, Est GFR (MDRD) Af Amer 37 L, Est GFR (MDRD) Non-Af 31 L, BUN/Creatinine Ratio 20.1 H, Glucose 675 H*, Calcium 9.6, Total Bilirubin 0.20, AST 27, ALT 45, Alkaline Phosphatase 146 H, Troponin I < 0.015, Total Protein 7.7, Albumin 3.1 L, Globulin 4.6 H, Albumin/Globulin Ratio 0.7 L 04/18/20 11:20: Ethyl Alcohol < 3.0 04/18/20 11:37: Ammonia 49.0 H 04/18/20 11:44: POC Glucose > 500 H* 04/18/20 11:56: Specimen Type ART, Sample Site R Radial, pH 7.30 L, Bicarbonate Actual 28.6 H, Total CO2 30, Base Excess 2, O2 Saturation 93 L, ABG pCO2 58.0 H, ABG pO2 77, Vega Test Positive, O2 Delivery Device Cannula, Liter Flow 2.0 04/18/20 12:00: Urine Opiates Screen NEGATIVE, Urine Methadone Screen NEGATIVE, Ur Barbiturates Screen NEGATIVE, Ur Phencyclidine Scrn NEGATIVE, Ur Amphetamines Screen NEGATIVE, U Methamphetamin-MDMA NEGATIVE, U Benzodiazepines Scrn NEGATIVE, Urine Cocaine Screen NEGATIVE, U Cannabinoids Screen NEGATIVE, Ur Drug Screen Comment 04/18/20 12:00: Urine Color Yellow, Urine Clarity Cloudy, Urine pH 5.0, Ur Specific [place] 1.015, Urine Protein 100 H, Urine Glucose (UA) 1000 H, Urine Ketones Negative, Urine Occult Blood 25 H, Urine Nitrite Negative, Urine Bilirubin Negative, Urine Urobilinogen Normal, Ur Leukocyte Esterase Negative 04/18/20 13:13: POC Glucose > 500 H* 04/18/20 14:35: POC Glucose 453 H* Current Medications Heparin Sodium (Porcine) (Heparin Injection (Vial) 5,000 Unit/Ml Vial) 5,000 unit SC Q12 KINJ[facility] Sodium Chloride () 1,000 mls @ 250 mls/hr IV .Q4H K[facility] Insulin Human Lispro (Insulin Lispro 100 Unit/Ml Insuln.Pen) 0 unit SC Q6 KINJ[facility]; Protocol Ondansetron HCl (Ondansetron 4 Mg/2 Ml Vial) 4 mg IV Q8H PRN PRN PRN Reason: NAUSEA/VOMITING Sodium Chloride (0.9% Saline Lock 10 Ml Syringe) 10 - 40 ml IV UD PRN PRN Reason: SALINE FLUSH Assessment/Plan All Active Problems (Last Reviewed 03/26/20 @ 07:[address] Kurt Gore MD) Hyperglycemia (Acute) Dehydration (Acute) Leukocytosis (Acute) Altered level of consciousness (Acute) Hyperglycemia due to type 2 diabetes mellitus (Acute) Hypoxemia (Acute) MICHELE (acute kidney injury) (Acute) HHNC (hyperglycemic hyperosmolar nonketotic coma) (Acute) 1. Acute metabolic encephalopathy, suspect secondary to polypharmacy, HHS, hypoxia and MICHELE. Brain CT negative. Treat underlying processes. Hold sedating regimen. 2. Uncontrolled type 2 diabetes mellitus with hyperosmolar hyperglycemia-subcu insulin in ER. Aggressive IV fluids. Every 6 hours Accu-Cheks with sliding scale insulin. 3. Acute kidney injury-IV fluids, trend BMP. 4. Acute hypoxia-secondary to atelectasis. Chest x-ray with bibasilar atelectasis. Continue supplement oxygen to maintain O2 at about 8%, wean as tolerated. Encourage ambulation and IS when patient is alert and able to cooperate. 5. History of grand mal seizures-on Keppra. 6. Schizophrenia/anxiety/depression-continue home Cymbalta regimen when safe for oral intake. Continue to hold sedating regimen. 7. Polypharmacy-patient is on multiple sedating medications including Lyrica, tramadol, Vistaril and Risperdal. Hold at this time. Will need reevaluated at discharge. DVT prophylaxis-heparin subcu This patient was seen by CHARLY Montalvo under the supervision of Dr. Villalpando.
[2020-04-18 17:16] LABS: Bedside Glucose > 500 mg/dL (70-110)
[2020-04-18] MEDS: Insulin Lispro 100 UNIT/ML INSULN.PEN 20 UNIT SC (17:26)
[2020-04-18] MEDS: 0.9% Normal Saline 1,000 ML 250 ML IV ×2 (17:35→21:50)
[2020-04-18] MEDS: Insulin Lispro 100 UNIT/ML INSULN.PEN SC (18:55)
[2020-04-18 19:01] LABS: Bedside Glucose 447 mg/dL (70-110)
[2020-04-18 20:01] LABS: Bedside Glucose 295 mg/dL (70-110)
[2020-04-18] MEDS: Heparin Injection (Vial) 5,000 UNIT/ML VIAL 5000 UNIT SC (21:55)
[2020-04-19] VITALS (10 sets, daily range): BP systolic 139–158; BP diastolic 66–85; PULSE 78–97; RESP 16–18; TEMP 36.6–37.2; O2SAT 89–98
[2020-04-19 00:01] LABS: Bedside Glucose 147 mg/dL (70-110)
[2020-04-19 00:06] LABS: Bedside Glucose 94 mg/dL (70-110)
[2020-04-19] MEDS: 0.9% Normal Saline 1,000 ML 250 ML IV ×2 (02:14→06:18)
[2020-04-19] MEDS: Insulin Lispro 100 UNIT/ML INSULN.PEN SC ×3 (05:55→16:14)
[2020-04-19 06:00] LABS: Absolute Lymphocyte Count 1.35 X10^3/uL (0.83-4.51); Absolute Neutrophil Count 7.4 X10^3/uL (2.0-7.7); Basophil# 0.05 X10^3/uL; Basophil% 0.5 % (0-1); Eosinophil# 0.31 X10^3/uL; Eosinophils% 3.2 % (0-5); Hematocrit 41.1 % (37-47); Hemoglobin 12.8 g/dL (12.0-15.0); Lymphocyte # 1.35 X10^3/ul (4.0); Lymphocyte % 14.1 % (19-41); Mean Corp Hgb Conc 31.1 g/dL (32-36); Mean Corpuscular Hgb 27.1 pg (27.0-32.0); Mean Corpuscular Volume 87.1 fL (81-99); Mean Platelet Vol. 11.3 fl (6.2-12.0); Monocyte# 0.45 X10^3/uL; Monocyte% 4.7 % (0-10); NRBC Flagged by Analyzer 0 % (0-5); Neutrophil # 7.38 X10^3/uL (2.7-7.7); Neutrophil % 76.9 % (47-70); Platelet Count 140 K/mm3 (150-450); RBC Distribution Width CV 18.2 % (11.6-14.6); RBC Distribution Width SD 57.1 fl (35.1-43.9); Red Blood Count 4.72 M/mm3 (4.2-5.4); White Blood Count 9.6 K/mm3 (4.4-11.0)
[2020-04-19 06:25] LABS: Bedside Glucose 208 mg/dL (70-110)
[2020-04-19 07:02] LABS: Anion Gap 4 (5-15); BUN 16 mg/dL (7-18); BUN/Creat Ratio 41.6 RATIO (10-20); Calcium,Total 5.2 mg/dL (8.5-10.1); Chloride 126 mmol/L (98-107); Creatinine, Serum 0.38 mg/dL (0.55-1.02); EST Glomerular Filtration Rate 186 mL/min (>60); Est Glom Filt Rate - Afr Amer 225 mL/min (>60); Estimated Creatinine Clearance 163.96 ml/min; Glucose 148 mg/dL (74-106); Potassium 2.8 mmol/L (3.5-5.1); Sodium Level 150 mmol/L (136-145)
[2020-04-19] MEDS: Heparin Injection (Vial) 5,000 UNIT/ML VIAL 5000 UNIT SC ×2 (09:20→22:01)
[2020-04-19 11:50] LABS: Bedside Glucose 176 mg/dL (70-110)
[2020-04-19 13:51] LABS: Magnesium 1.2 mg/dL (1.6-2.6)
[2020-04-19 13:59] LABS: Phosphorus 1.5 mg/dL (2.5-4.9)
--- NOTE | 2020-04-19 14:53 | PCM.PROGNOTE ---
<Lashaun Xiong CORPORATE LIBRARIAN - Last Filed: 04/19/20 15:02> Patient Problems: Active and Suspected Problems (Last Reviewed 03/26/20 @ 07:[address] Kurt Gore MD) Hyperglycemia (Acute) Dehydration (Acute) Leukocytosis (Acute) Altered level of consciousness (Acute) Hyperglycemia due to type 2 diabetes mellitus (Acute) Hypoxemia (Acute) MICHELE (acute kidney injury) (Acute) HHNC (hyperglycemic hyperosmolar nonketotic coma) (Acute) Subjective: Patient seen and examined. More alert today. Remains confused. Patient unable to tell me month or year. Unable to tell me in months prior to admission. - Physical Exam Vitals/I&O's: Vital Signs Temp Pulse Resp BP Pulse Ox 99.0 F 89 18 155/83 H 94 04/19/20 09:20 04/19/20 09:20 04/19/20 09:20 04/19/20 09:20 04/19/20 09:20 Oxygen Flow Rate (L/min) 2 Oxygen Delivery Method Nasal Cannula Weight: 169 lb 12.095 oz Body Mass Index (BMI) 27.3 Finger Stick Blood Glucose 453 Intake and Output for Last 24 Hours 04/17/20 04/18/20 04/19/20 23:59 23:59 23:59 Intake Total 3537.5 / 3537.5 2462.5 / 2462.5 Output Total 252 / 252 Balance 3537.5 / 3537.5 2210.5 / 2210.5 General: Alert, Cooperative, No apparent distress HEENT: Atraumatic, PERRLA, EOMI, Normocephalic Oral: Dry Mucosa Neck: Supple, No JVD, Negative Carotid Bruits Lungs: Clear to auscultation, Diminished Cardiovascular: Regular rate, No murmurs Abdomen: Bowel Sounds Present, Soft, Non Tender, Non-Distended Extremities: No clubbing, No cyanosis, No edema, Capillary Refill Less than 3 Seconds Skin: No rashes, No breakdown Musculoskeletal: No Tenderness to Palpation of Joints or Extremities Neurological: Cranial nerves II-XII grossly intact, Neuro grossly intact Psych/Mental Status: Flat Affect Microbiology Past 72 Hours 04/18/20 11:45 Mucosa - Nose SARS-CoV-2 Antigen (Rapid) - Final Laboratory Results 04/18/20 17:13: POC Glucose > 500 H* 04/18/20 18:53: POC Glucose 447 H 04/18/20 19:56: POC Glucose 295 H 04/18/20 21:53: POC Glucose 147 H 04/18/20 23:43: POC Glucose 94 04/19/20 05:45: Sodium 150 H, Potassium 2.8 L, Chloride 126 H, Carbon Dioxide 20.0 L, Anion Gap 4 L, BUN 16, Creatinine 0.38 L, Estim Creat Clear Calc 163.96, Est GFR (MDRD) Af Amer 225, Est GFR (MDRD) Non-Af 186, BUN/Creatinine Ratio 41.6 H, Glucose 148 H, Calcium 5.2 L* 04/19/20 05:45: WBC 9.6, RBC 4.72, Hgb 12.8, Hct 41.1, MCV 87.1, MCH 27.1, MCHC 31.1 L, RDW Std Deviation 57.1 H, RDW Coeff of Krista 18.2 H, Plt Count 140 L, MPV 11.3, Immature Gran % (Auto) 0.600, Neut % (Auto) 76.9 H, Lymph % (Auto) 14.1 L, [place] % (Auto) 4.7, Eos % (Auto) 3.2, Baso % (Auto) 0.5, Absolute Neuts (auto) 7.4, Absolute Lymphs (auto) 1.35, Nucleated RBC % 0 04/19/20 05:45: Magnesium 1.2 L 04/19/20 05:45: Phosphorus 1.5 L 04/19/20 05:54: POC Glucose 208 H 04/19/20 11:13: POC Glucose 176 H 04/19/20 14:03: Vitamin D 25-Hydroxy Pending Current Medications Calcium Carbonate (Calcium Carbonate 500 Mg Tablet) [facility] Heparin Sodium (Porcine) (Heparin Injection (Vial) 5,000 Unit/Ml Vial) 5,000 unit SC Q12 [facility] Last Admin: 04/19/20 09:20 Dose: 5,000 unit Documented by: Insulin Glargine (Insulin Glargine 100 Units/Ml Pen) 15 units SC BID [facility] Last Admin: 04/19/20 09:21 Dose: 15 u Documented by: Insulin Human Lispro (Insulin Lispro 100 Unit/Ml Insuln.Pen) 0 unit SC Q6 [facility]; Protocol Last Admin: 04/19/20 11:31 Dose: 3 u Documented by: Ondansetron HCl (Ondansetron 4 Mg/2 Ml Vial) 4 mg IV Q8H PRN PRN PRN Reason: NAUSEA/VOMITING Potassium Chloride (Potassium Chloride 20 Meq Tablet) 40 meq PO X1 ONE Stop: 04/19/20 13:22 Sodium Chloride (0.9% Saline Lock 10 Ml Syringe) 10 - 40 ml IV UD PRN PRN Reason: SALINE FLUSH Medical Necessity - Tobacco Use Smoking Status: Unknown if ever smoked Assessment/Plan All Active Problems (Last Reviewed 03/26/20 @ 07:[address] Kurt Gore MD) Hyperglycemia (Acute) Dehydration (Acute) Leukocytosis (Acute) Altered level of consciousness (Acute) Hyperglycemia due to type 2 diabetes mellitus (Acute) Hypoxemia (Acute) MICHELE (acute kidney injury) (Acute) HHNC (hyperglycemic hyperosmolar nonketotic coma) (Acute) 1. Acute metabolic encephalopathy, suspect secondary to polypharmacy, HHS, hypoxia and MICHELE. Brain CT negative. Treat underlying processes. Hold sedating regimen. Mental status improved. 2. Uncontrolled type 2 diabetes mellitus with hyperosmolar hyperglycemia- Aggressive IV fluids. Blood glucose significantly improved. Accu-Cheks with sliding scale insulin. Continue Lantus 15 units twice daily. Patient will need long-acting regimen Rx at discharge. 3. Acute kidney injury-resolved with IV fluids. 4. Acute hypoxia-secondary to atelectasis. Chest x-ray with bibasilar atelectasis. Continue supplement oxygen to maintain O2 at or above 90%, wean as tolerated. Encourage ambulation and incentive spirometer. Walking pulse ox prior to discharge. 5. Acute diarrhea-unclear etiology. Stool for enteric pathogen and C. difficile pending. 6. Hypokalemia/hypocalcemia/hypomagnesia/hypophosphatemia-replace per protocol, trend labs. Vitamin D level ordered. 7. History of grand mal seizures-on Keppra. 8. Schizophrenia/anxiety/depression-continue home Cymbalta regimen. Continue to hold sedating regimen. 9. Polypharmacy-patient is on multiple sedating medications including Lyrica, tramadol, Vistaril and Risperdal. Hold at this time. Will need reevaluated at discharge. DVT prophylaxis-heparin subcu This patient was seen by CHARLY Montalvo under the supervision of Dr. Desir. <Kelly Desir Elva - Last Filed: 04/19/20 18:41> - Physical Exam Vitals/I&O's: Vital Signs Temp Pulse Resp BP Pulse Ox 98.7 F 84 18 139/66 H 95 04/19/20 15:20 04/19/20 15:20 04/19/20 15:20 04/19/20 15:20 04/19/20 15:20 Oxygen Flow Rate (L/min) 2 Oxygen Delivery Method Nasal Cannula Weight: 169 lb 12.095 oz Body Mass Index (BMI) 27.3 Finger Stick Blood Glucose 453 Intake and Output for Last 24 Hours 04/17/20 04/18/20 04/19/20 23:59 23:59 23:59 Intake Total 3537.5 / 3537.5 3526.5 / 3526.5 Output Total 250 / 250 Balance 3537.5 / 3537.5 3276.5 / 3276.5 Microbiology Past 72 Hours 04/18/20 11:45 Mucosa - Nose SARS-CoV-2 Antigen (Rapid) - Final Laboratory Results 04/18/20 18:53: POC Glucose 447 H 04/18/20 19:56: POC Glucose 295 H 04/18/20 21:53: POC Glucose 147 H 04/18/20 23:43: POC Glucose 94 04/19/20 05:45: Sodium 150 H, Potassium 2.8 L, Chloride 126 H, Carbon Dioxide 20.0 L, Anion Gap 4 L, BUN 16, Creatinine 0.38 L, Estim Creat Clear Calc 163.96, Est GFR (MDRD) Af Amer 225, Est GFR (MDRD) Non-Af 186, BUN/Creatinine Ratio 41.6 H, Glucose 148 H, Calcium 5.2 L* 04/19/20 05:45: WBC 9.6, RBC 4.72, Hgb 12.8, Hct 41.1, MCV 87.1, MCH 27.1, MCHC 31.1 L, RDW Std Deviation 57.1 H, RDW Coeff of Krista 18.2 H, Plt Count 140 L, MPV 11.3, Immature Gran % (Auto) 0.600, Neut % (Auto) 76.9 H, Lymph % (Auto) 14.1 L, Rankin % (Auto) 4.7, Eos % (Auto) 3.2, Baso % (Auto) 0.5, Absolute Neuts (auto) 7.4, Absolute Lymphs (auto) 1.35, Nucleated RBC % 0 04/19/20 05:45: Magnesium 1.2 L 04/19/20 05:45: Phosphorus 1.5 L 04/19/20 05:54: POC Glucose 208 H 04/19/20 11:13: POC Glucose 176 H 04/19/20 14:03: Vitamin D 25-Hydroxy 10.6 04/19/20 16:13: POC Glucose 295 H Current Medications Calcium Carbonate (Calcium Carbonate 500 Mg Tablet) [facility] Last Admin: 04/19/20 15:30 Dose: 1,000 mg Documented by: Doxazosin Mesylate (Doxazosin 1 Mg Tablet) 1.5 mg PO QHS [facility] Duloxetine HCl (Duloxetine Hcl 30 Mg Capsule) 30 mg PO BID [facility] Heparin Sodium (Porcine) (Heparin Injection (Vial) 5,000 Unit/Ml Vial) 5,000 unit SC Q12 [facility] Last Admin: 04/19/20 09:20 Dose: 5,000 unit Documented by: Insulin Glargine (Insulin Glargine 100 Units/Ml Pen) 15 units SC BID [facility] Last Admin: 04/19/20 09:21 Dose: 15 u Documented by: Insulin Human Lispro (Insulin Lispro 100 Unit/Ml Insuln.Pen) 0 unit SC [facility]; Protocol Last Admin: 04/19/20 16:14 Dose: 9 u Documented by: Levetiracetam (Levetiracetam 500 Mg Tablet) 500 mg PO BID [facility] Nutritional Formula (Lactose Free) (Glucerna Shake 120 Ml Liquid) 120 ml PO 4X/DAY [facility] Last Admin: 04/19/20 17:44 Dose: Not Given Documented by: Ondansetron HCl (Ondansetron 4 Mg/2 Ml Vial) 4 mg IV Q8H PRN PRN PRN Reason: NAUSEA/VOMITING Oxybutynin Chloride (Oxybutynin 5 Mg Tablet) 5 mg PO BID [facility] Potassium Phos/Sodium Phos (Na Biphos/Potassium Phosphate Packet) 1 packet PO TID [facility] Last Admin: 04/19/20 15:30 Dose: 1 packet Documented by: Sodium Chloride (0.9% Saline Lock 10 Ml Syringe) 10 - 40 ml IV UD PRN PRN Reason: SALINE FLUSH Last Admin: 04/19/20 17:43 Dose: 10 ml Documented by: Assessment/Plan Patient seen by Lashaun PARKS under my supervision Patient seen and examined. She was admitted with a complaitn of acute metabolic encephalopathy, thought to be due to polypharmacy, hyperglycemia hyperosmotic nonketotic syndrome and MICHELE. CT of the brain was negative. She still remains confused this morning. Unable to do comprehensive review of systems as patient is confused. O/E: Vital Signs Temp Pulse Resp BP Pulse Ox 98.7 F 84 18 139/66 H 95 04/19/20 15:20 04/19/20 15:20 04/19/20 15:20 04/19/20 15:20 04/19/20 15:20 General: Alert, Cooperative, No apparent distress HEENT: Atraumatic, PERRLA, EOMI, Normocephalic Oral: Dry Mucosa Neck: Supple, No JVD, Negative Carotid Bruits Lungs: Clear to auscultation, Diminished Cardiovascular: Regular rate, No murmurs Abdomen: Bowel Sounds Present, Soft, Non Tender, Non-Distended Extremities: No clubbing, No cyanosis, No edema, Capillary Refill Less than 3 Seconds Skin: No rashes, No breakdown Musculoskeletal: No Tenderness to Palpation of Joints or Extremities Neurological: Cranial nerves II-XII grossly intact, Neuro grossly intact Psych/Mental Status: Flat Affect Plan is to continue holding sedative meds. continue hydrating with IVF, and continue lantus 15 units twice daily. Titrate oxygen to maintain sats >90%/ On keppra for grand mal seizures. Patient also had diarrhea and stool for enteric pathogen and C. difficile is pending. She also had hypokalemia, hypokalemia and hypomagnesemia as well as hypophosphatemia which have been replaced. Rest as per CHARLY Montalvo's notes which I reviewed and endorsed. Vital Signs Temp Pulse Resp BP Pulse Ox 98.7 F 84 18 139/66 H 95 04/19/20 15:20 04/19/20 15:20 04/19/20 15:20 04/19/20 15:20 04/19/20 15:20 Inpatient E&M: 31892 Subs Hosp L3
[2020-04-19 15:14] LABS: Vitamin D,25 Hydroxy 10.6 ng/mL
[2020-04-19] MEDS: Calcium Carbonate 500 MG Tablet 1000 MG PO (15:30)
[2020-04-19] MEDS: Na Biphos/Potassium Phosphate PACKET 1 PACKET PO ×2 (15:30→22:00)
[2020-04-19 16:20] LABS: Bedside Glucose 295 mg/dL (70-110)
--- NOTE | 2020-04-19 16:40 | CASEMGMT ---
SOCIAL WORK Met with patient in room. Introduced role and reason for referral. Patient A&Ox3. Patient states lives in an apartment with significant other and [facility] Patient follows with Dr. Molina. Patient states plan for discharge is home as before with continued services through [facility]. Plan: Home with continued home health services [facility] Cleveland Vergara MSW, MANAGER ENGAGEMENT
--- NOTE | 2020-04-19 16:40 | CASEMGMT ---
SOCIAL WORK Informant: RN ABUNDIO Alonso Reason for Referral:Discharge Planning Met with patient in room. Introduced role and reason for referral. Patient reports lives home with significant other in an apartment. Patient states has home health care services through [facility] and follows with PCP-Dr. Molina. Discussed discharge plan. Patient refuses SNF and reports will return home with home health services as before. Cleveland Vergara, PATHOLOGY TRANSCRIPTIONIST, SHOP FIRER/FIREMAN
[2020-04-19] MEDS: 0.9% Saline Lock 10 ML Syringe IV (17:43)
[2020-04-19 21:50] LABS: Bedside Glucose 151 mg/dL (70-110)
[2020-04-19] MEDS: DULoxetine Hcl 30 MG Capsule PO (21:59)
[2020-04-19] MEDS: Doxazosin 1 MG Tablet 1.5 MG PO (21:59)
[2020-04-19] MEDS: levETIRAcetam 500 MG Tablet PO (22:00)
[2020-04-19] MEDS: Oxybutynin 5 MG Tablet PO (22:00)
[2020-04-20] VITALS (10 sets, daily range): BP systolic 138–158; BP diastolic 71–90; PULSE 74–85; RESP 16–18; TEMP 36.7–37.3; O2SAT 93–96
[2020-04-20] MEDS: Insulin Lispro 100 UNIT/ML INSULN.PEN SC ×4 (06:53→21:57)
[2020-04-20] MEDS: Na Biphos/Potassium Phosphate PACKET 1 PACKET PO ×3 (06:53→21:58)
[2020-04-20 06:56] LABS: Hematocrit 47.1 % (37-47); Hemoglobin 14.7 g/dL (12.0-15.0); Mean Corp Hgb Conc 31.2 g/dL (32-36); Mean Corpuscular Hgb 26.7 pg (27.0-32.0); Mean Corpuscular Volume 85.6 fL (81-99); Mean Platelet Vol. 10.7 fl (6.2-12.0); Platelet Count 149 K/mm3 (150-450); RBC Distribution Width CV 18.3 % (11.6-14.6); RBC Distribution Width SD 57.5 fl (35.1-43.9); White Blood Count 8.6 K/mm3 (4.4-11.0)
[2020-04-20 07:01] LABS: Bedside Glucose 208 mg/dL (70-110)
[2020-04-20 07:27] LABS: Anion Gap 5 (5-15); BUN 17 mg/dL (7-18); BUN/Creat Ratio 21.5 RATIO (10-20); Calcium,Total 8.9 mg/dL (8.5-10.1); Chloride 110 mmol/L (98-107); Creatinine, Serum 0.79 mg/dL (0.55-1.02); EST Glomerular Filtration Rate 81 mL/min (>60); Est Glom Filt Rate - Afr Amer 98 mL/min (>60); Estimated Creatinine Clearance 78.87 ml/min; Glucose 202 mg/dL (74-106); Magnesium 2.4 mg/dL (1.6-2.6); Phosphorus 1.8 mg/dL (2.5-4.9); Potassium 4.4 mmol/L (3.5-5.1); Sodium Level 140 mmol/L (136-145)
[2020-04-20] MEDS: Heparin Injection (Vial) 5,000 UNIT/ML VIAL 5000 UNIT SC ×2 (10:00→21:56)
[2020-04-20] MEDS: 0.9% Saline Lock 10 ML Syringe IV (10:00)
[2020-04-20] MEDS: Oxybutynin 5 MG Tablet PO ×2 (10:00→21:56)
[2020-04-20] MEDS: Calcium Carbonate 500 MG Tablet 1000 MG PO ×2 (10:00→16:48)
[2020-04-20] MEDS: DULoxetine Hcl 30 MG Capsule PO ×2 (10:00→21:56)
[2020-04-20] MEDS: levETIRAcetam 500 MG Tablet PO ×2 (10:00→21:56)
[2020-04-20] MEDS: Glucerna Shake 120 ML LIQUID PO ×4 (10:03→21:57)
[2020-04-20 12:21] LABS: Bedside Glucose 328 mg/dL (70-110)
--- NOTE | 2020-04-20 13:23 | PN_ITS ---
<TyreseLashaun CURRICULUM SUPERVISOR - Last Filed: 04/20/20 13:32> Patient Problems: Active and Suspected Problems (Last Reviewed 03/26/20 @ 07:[address] Kurt peters MD) Hyperglycemia (Acute) Dehydration (Acute) Leukocytosis (Acute) Altered level of consciousness (Acute) Hyperglycemia due to type 2 diabetes mellitus (Acute) Hypoxemia (Acute) MICHELE (acute kidney injury) (Acute) HHNC (hyperglycemic hyperosmolar nonketotic coma) (Acute) Subjective: Patient seen and examined. Patient alert, resting in chair. Remains intermittently confused. Appears to have difficulty finding words which patient states is chronic for her. Denies other new symptoms or complaints. - Physical Exam Vitals/I&O's: Vital Signs Temp Pulse Resp BP Pulse Ox 98.0 F 84 18 139/71 H 96 04/20/20 09:45 04/20/20 09:45 04/20/20 09:45 04/20/20 09:45 04/20/20 10:11 Oxygen Flow Rate (L/min) 2 Oxygen Delivery Method Nasal Cannula Weight: 169 lb 12.095 oz Body Mass Index (BMI) 27.3 Finger Stick Blood Glucose 453 Intake and Output for Last 24 Hours 04/18/20 04/19/20 04/20/20 23:59 23:59 23:59 Intake Total 3537.5 / 3537.5 3526.5 / 3726.5 760 / 760 Output Total 250 / 250 Balance 3537.5 / 3537.5 3276.5 / 3476.5 760 / 760 General: Alert, Oriented x3, Cooperative HEENT: Atraumatic, PERRLA, EOMI, Normocephalic Neck: Supple, No JVD, Negative Carotid Bruits Lungs: Clear to auscultation, Normal air movement Cardiovascular: Regular rate, No murmurs Abdomen: Bowel Sounds Present, Soft, Non Tender, Non-Distended Extremities: No clubbing, No cyanosis, No edema, Capillary Refill Less than 3 Seconds Skin: No rashes, No breakdown Musculoskeletal: No Tenderness to Palpation of Joints or Extremities Neurological: Cranial nerves II-XII grossly intact, Neuro grossly intact Psych/Mental Status: Flat Affect Microbiology Past 72 Hours 04/19/20 15:28 Stool Enteric Bacteriology - Final 04/19/20 15:28 Stool C. difficile DNA Amplification - Final 04/18/20 11:45 Mucosa - Nose SARS-CoV-2 Antigen (Rapid) - Final Laboratory Results 04/19/20 05:45: Magnesium 1.2 L 04/19/20 05:45: Phosphorus 1.5 L 04/19/20 14:03: Vitamin D 25-Hydroxy 10.6 04/19/20 16:13: POC Glucose 295 H 04/19/20 20:48: POC Glucose 151 H 04/20/20 06:35: WBC 8.6, RBC 5.50 H, Hgb 14.7, Hct 47.1 H, MCV 85.6, MCH 26.7 L, MCHC 31.2 L, RDW Std Deviation 57.5 H, RDW Coeff of Krista 18.3 H, Plt Count 149 L, MPV 10.7 04/20/20 06:35: Sodium 140, Potassium 4.4, Chloride 110 H, Carbon Dioxide 25.0, Anion Gap 5, BUN 17, Creatinine 0.79, Estim Creat Clear Calc 78.87, Est GFR (MDRD) Af Amer 98, Est GFR (MDRD) Non-Af 81, BUN/Creatinine Ratio 21.5 H, Glucose 202 H, Calcium 8.9, Phosphorus 1.8 L, Magnesium 2.4 04/20/20 06:51: POC Glucose 208 H 04/20/20 12:07: POC Glucose 328 H Current Medications Calcium Carbonate (Calcium Carbonate 500 Mg Tablet) 1,000 mg PO BIDCM [facility] Last Admin: 04/20/20 10:00 Dose: 1,000 mg Documented by: Doxazosin Mesylate (Doxazosin 1 Mg Tablet) 1.5 mg PO QHS [facility] Last Admin: 04/19/20 21:59 Dose: 1.5 mg Documented by: Duloxetine HCl (Duloxetine Hcl 30 Mg Capsule) 30 mg PO BID [facility] Last Admin: 04/20/20 10:00 Dose: 30 mg Documented by: Heparin Sodium (Porcine) (Heparin Injection (Vial) 5,000 Unit/Ml Vial) 5,000 unit SC Q12 [facility] Last Admin: 04/20/20 10:00 Dose: 5,000 unit Documented by: Insulin Glargine (Insulin Glargine 100 Units/Ml Pen) 15 units SC BID [facility] Last Admin: 04/20/20 10:00 Dose: 15 u Documented by: Insulin Human Lispro (Insulin Lispro 100 Unit/Ml Insuln.Pen) 0 unit SC ACHS [facility]; Protocol Last Admin: 04/20/20 12:08 Dose: 12 u Documented by: Levetiracetam (Levetiracetam 500 Mg Tablet) 500 mg PO BID [facility] Last Admin: 04/20/20 10:00 Dose: 500 mg Documented by: Nutritional Formula (Lactose Free) (Glucerna Shake 120 Ml Liquid) 120 ml PO 4X/DAY [facility] Last Admin: 04/20/20 10:03 Dose: 120 ml Documented by: Ondansetron HCl (Ondansetron 4 Mg/2 Ml Vial) 4 mg IV Q8H PRN PRN PRN Reason: NAUSEA/VOMITING Oxybutynin Chloride (Oxybutynin 5 Mg Tablet) 5 mg PO BID [facility] Last Admin: 04/20/20 10:00 Dose: 5 mg Documented by: Potassium Phos/Sodium Phos (Na Biphos/Potassium Phosphate Packet) 1 packet PO TID [facility] Last Admin: 04/20/20 06:53 Dose: 1 packet Documented by: Sodium Chloride (0.9% Saline Lock 10 Ml Syringe) 10 - 40 ml IV UD PRN PRN Reason: SALINE FLUSH Last Admin: 04/20/20 10:00 Dose: 10 ml Documented by: Medical Necessity - Tobacco Use Smoking Status: Unknown if ever smoked Assessment/Plan All Active Problems (Last Reviewed 03/26/20 @ 07:[address] Kurt Gore MD) Hyperglycemia (Acute) Dehydration (Acute) Leukocytosis (Acute) Altered level of consciousness (Acute) Hyperglycemia due to type 2 diabetes mellitus (Acute) Hypoxemia (Acute) MICHELE (acute kidney injury) (Acute) HHNC (hyperglycemic hyperosmolar nonketotic coma) (Acute) 1. Acute metabolic encephalopathy, suspect secondary to polypharmacy, HHS, hypoxia and MICHELE. Brain CT negative. Treat underlying processes. Hold sedating regimen. Mental status improved. 2. Uncontrolled type 2 diabetes mellitus with hyperosmolar hyperglycemia- Blood glucose significantly improved. Accu-Cheks with sliding scale insulin. Continue Lantus 15 units twice daily. Patient will need long-acting regimen Rx at discharge. 3. Acute kidney injury-resolved with IV fluids. 4. Acute hypoxia-secondary to atelectasis. Chest x-ray with bibasilar atelectasis. Continue supplement oxygen to maintain O2 at or above 90%, wean as tolerated. Encourage ambulation and incentive spirometer. Walking pulse ox prior to discharge. 5. Acute diarrhea-unclear etiology. Stool for enteric pathogen and C. difficile negative. Diarrhea resolved. 6. Hypokalemia/hypocalcemia/hypomagnesia/hypophosphatemia-replace per protocol, resolved. 7. History of grand mal seizures-on Keppra. 8. Schizophrenia/anxiety/depression-continue home Cymbalta regimen. Continue to hold sedating regimen. 9. Polypharmacy-patient is on multiple sedating medications including Lyrica, tramadol, Vistaril and Risperdal. Hold at this time. Will need reevaluated at discharge. 10. Vitamin D deficiency-begin vitamin D supplementation DVT prophylaxis-heparin subcu Discharge planning: Anticipate home with home health tomorrow. This patient was seen by CHARLY Montalvo under the supervision of Dr. Desir. <Kelly Desir - Last Filed: 04/20/20 15:11> - Physical Exam Vitals/I&O's: Vital Signs Temp Pulse Resp BP Pulse Ox 98.0 F 84 18 139/71 H 96 04/20/20 09:45 04/20/20 09:45 04/20/20 09:45 04/20/20 09:45 04/20/20 10:11 Oxygen Flow Rate (L/min) 2 Oxygen Delivery Method Nasal Cannula Weight: 169 lb 12.095 oz Body Mass Index (BMI) 27.3 Finger Stick Blood Glucose 453 Intake and Output for Last 24 Hours 04/18/20 04/19/20 04/20/20 23:59 23:59 23:59 Intake Total 3537.5 / 3537.5 3526.5 / 3726.5 760 / 760 Output Total 250 / 250 Balance 3537.5 / 3537.5 3276.5 / 3476.5 760 / 760 Microbiology Past 72 Hours 04/19/20 15:28 Stool Enteric Bacteriology - Final 04/19/20 15:28 Stool C. difficile DNA Amplification - Final 04/18/20 11:45 Mucosa - Nose SARS-CoV-2 Antigen (Rapid) - Final Laboratory Results 04/19/20 14:03: Vitamin D 25-Hydroxy 10.6 04/19/20 16:13: POC Glucose 295 H 04/19/20 20:48: POC Glucose 151 H 04/20/20 06:35: WBC 8.6, RBC 5.50 H, Hgb 14.7, Hct 47.1 H, MCV 85.6, MCH 26.7 L, MCHC 31.2 L, RDW Std Deviation 57.5 H, RDW Coeff of Krista 18.3 H, Plt Count 149 L, MPV 10.7 04/20/20 06:35: Sodium 140, Potassium 4.4, Chloride 110 H, Carbon Dioxide 25.0, Anion Gap 5, BUN 17, Creatinine 0.79, Estim Creat Clear Calc 78.87, Est GFR (MDRD) Af Amer 98, Est GFR (MDRD) Non-Af 81, BUN/Creatinine Ratio 21.5 H, Glucose 202 H, Calcium 8.9, Phosphorus 1.8 L, Magnesium 2.4 04/20/20 06:51: POC Glucose 208 H 04/20/20 12:07: POC Glucose 328 H Current Medications Calcium Carbonate (Calcium Carbonate 500 Mg Tablet) 1,000 mg PO BIDCM [facility] Last Admin: 04/20/20 10:00 Dose: 1,000 mg Documented by: Doxazosin Mesylate (Doxazosin 1 Mg Tablet) 1.5 mg PO QHS [facility] Last Admin: 04/19/20 21:59 Dose: 1.5 mg Documented by: Duloxetine HCl (Duloxetine Hcl 30 Mg Capsule) 30 mg PO BID [facility] Last Admin: 04/20/20 10:00 Dose: 30 mg Documented by: Ergocalciferol (Ergocalciferol 50,000 Unit Capsule) 50,000 unit PO Q7D [facility] Stop: 05/25/20 13:31 Heparin Sodium (Porcine) (Heparin Injection (Vial) 5,000 Unit/Ml Vial) 5,000 unit SC Q12 [facility] Last Admin: 04/20/20 10:00 Dose: 5,000 unit Documented by: Insulin Glargine (Insulin Glargine 100 Units/Ml Pen) 15 units SC BID [facility] Last Admin: 04/20/20 10:00 Dose: 15 u Documented by: Insulin Human Lispro (Insulin Lispro 100 Unit/Ml Insuln.Pen) 0 unit SC [facility] ; Protocol Last Admin: 04/20/20 12:08 Dose: 12 u Documented by: Levetiracetam (Levetiracetam 500 Mg Tablet) 500 mg PO BID [facility] Last Admin: 04/20/20 10:00 Dose: 500 mg Documented by: Nutritional Formula (Lactose Free) (Glucerna Shake 120 Ml Liquid) 120 ml PO 4X/DAY [facility] Last Admin: 04/20/20 15:00 Dose: 120 ml Documented by: Ondansetron HCl (Ondansetron 4 Mg/2 Ml Vial) 4 mg IV Q8H PRN PRN PRN Reason: NAUSEA/VOMITING Oxybutynin Chloride (Oxybutynin 5 Mg Tablet) 5 mg PO BID [facility] Last Admin: 04/20/20 10:00 Dose: 5 mg Documented by: Potassium Phos/Sodium Phos (Na Biphos/Potassium Phosphate Packet) 1 packet PO TID [facility] Last Admin: 04/20/20 15:00 Dose: 1 packet Documented by: Sodium Chloride (0.9% Saline Lock 10 Ml Syringe) 10 - 40 ml IV UD PRN PRN Reason: SALINE FLUSH Last Admin: 04/20/20 10:00 Dose: 10 ml Documented by: Assessment/Plan Patient seen by Lashaun Xiong NP-Alirio under my supervision Patient seen and examined. Patient is much more alert and oriented today and has no complaints. Has remained hemodynamically stable review of systems otherwise negative. O/E: Vital Signs Temp Pulse Resp BP Pulse Ox 98.0 F 84 18 139/71 H 96 04/20/20 09:45 04/20/20 09:45 04/20/20 09:45 04/20/20 09:45 04/20/20 10:11 General: Alert, Cooperative, No apparent distress HEENT: Atraumatic, PERRLA, EOMI, Normocephalic Oral: Dry Mucosa Neck: Supple, No JVD, Negative Carotid Bruits Lungs: Clear to auscultation, Diminished Cardiovascular: Regular rate, No murmurs Abdomen: Bowel Sounds Present, Soft, Non Tender, Non-Distended Extremities: No clubbing, No cyanosis, No edema, Capillary Refill Less than 3 Seconds Skin: No rashes, No breakdown Musculoskeletal: No Tenderness to Palpation of Joints or Extremities Neurological: Cranial nerves II-XII grossly intact, Neuro grossly intact Psych/Mental Status: Flat Affect Plan is to continue holding sedative meds. Hypokalemia and hypomagnesemia have resolved. Phosphorus remains slightly low; will replace. Patient also noted to be vitamin D deficient and has been started on oral vitamin D supplementation. Continue Lantus 15 units twice daily. C. difficile screen is negative. PT OT on board. For likely discharge tomorrow with home health. Rest as per Lashaun Xiong NP-C's notes which I reviewed and endorsed. Inpatient E&M: 24864 Subs Hosp L2
[2020-04-20 16:55] LABS: Bedside Glucose 193 mg/dL (70-110)
[2020-04-20] MEDS: Doxazosin 1 MG Tablet 1.5 MG PO (21:57)
[2020-04-20 22:31] LABS: Bedside Glucose 213 mg/dL (70-110)
[2020-04-21] VITALS (11 sets, daily range): BP systolic 135–149; BP diastolic 74–85; PULSE 79–91; RESP 16; TEMP 36.7–36.9; O2SAT 87–96
[2020-04-21] MEDS: Na Biphos/Potassium Phosphate PACKET 1 PACKET PO ×3 (06:37→23:06)
[2020-04-21 06:41] LABS: Bedside Glucose 141 mg/dL (70-110)
[2020-04-21 07:16] LABS: Anion Gap 3 (5-15); BUN 22 mg/dL (7-18); Calcium,Total 9.6 mg/dL (8.5-10.1); Chloride 108 mmol/L (98-107); EST Glomerular Filtration Rate 62 mL/min (>60); Est Glom Filt Rate - Afr Amer 75 mL/min (>60); Estimated Creatinine Clearance 62.31 ml/min; Glucose 122 mg/dL (74-106); Potassium 4.2 mmol/L (3.5-5.1); Sodium Level 141 mmol/L (136-145)
[2020-04-21] MEDS: Heparin Injection (Vial) 5,000 UNIT/ML VIAL 5000 UNIT SC ×2 (10:16→23:08)
[2020-04-21] MEDS: Oxybutynin 5 MG Tablet PO ×2 (10:16→23:07)
[2020-04-21] MEDS: DULoxetine Hcl 30 MG Capsule PO ×2 (10:16→23:07)
[2020-04-21] MEDS: Calcium Carbonate 500 MG Tablet 1000 MG PO ×2 (10:18→17:38)
[2020-04-21] MEDS: Insulin Lispro 100 UNIT/ML INSULN.PEN SC ×3 (11:24→23:25)
[2020-04-21] MEDS: levETIRAcetam 500 MG Tablet PO ×2 (11:25→23:06)
--- NOTE | 2020-04-21 11:50 | PCM.DC ---
- Discharge Diagnoses Current Active Problems: Current Active and Chronic Problems (Last Reviewed 03/26/20 @ 07:[address] Kurt Gore MD) Blind left eye (Chronic) Type II diabetes mellitus (Chronic) Depression (Chronic) Anxiety (Chronic) Peripheral neuropathy (Chronic) Hyperglycemia (Acute) Dehydration (Acute) Leukocytosis (Acute) Altered level of consciousness (Acute) Hyperglycemia due to type 2 diabetes mellitus (Acute) Hypoxemia (Acute) MICHELE (acute kidney injury) (Acute) Hyperosmolar hyponatremia (Chronic) HHNC (hyperglycemic hyperosmolar nonketotic coma) (Acute) You will use the following diet at home:: Calorie/Carbohydrate Controlled (specify 1200, 1400, etc) Discharge Activity: Return to Normal Activity Call your doctor if you observe: Shortness of breath, Dizziness, Fainting spells, Chest pain Allergies/Adverse Reactions: Allergies Sulfa (Sulfonamide Antibiotics) Allergy (Verified 04/18/20 11:16) Hives Medications to take at Discharge Albuterol Inhaler [Ventolin Hfa] 2 puff INHALATION Q4H PRN PRN 06/10/17 Oxybutynin Chloride [Ditropan Xl] 5 mg PO BID 06/10/17 Duloxetine Hcl [Cymbalta] 30 mg PO BID 10/24/19 Levetiracetam [Keppra] 500 mg PO BID 10/24/19 Prazosin HCl [Minipress] 2 mg PO QHS 10/24/19 Acetaminophen [Tylenol] 500 mg PO TID #0 tab 04/01/20 Furosemide [Lasix] 40 mg PO DAILY 04/18/20 Insulin Lispro [Humalog] 16 unit SQ TIDCM 04/18/20 Baclofen [Lioresal] 5 mg PO TID #0 04/21/20 Cetirizine HCl [Zyrtec] 10 mg PO DAILY #30 tab 04/21/20 Ergocalciferol [Vitamin D] 50,000 unit PO Q7D #2 cap 04/21/20 Insulin Glargine [Lantus SoloStar Pen] 15 units SC BID #1 box 04/21/20 Pregabalin [Lyrica] 100 mg PO BID #0 04/21/20 Risperidone 0.25 mg PO BID #0 04/21/20 The following prescriptions were given: Insulin Glargine [Lantus SoloStar Pen] 15 units SC BID #1 box Transmission Status: Pending to [place] [id number] Ergocalciferol [Vitamin D] 50,000 unit PO Q7D #2 cap Transmission Status: Pending to [facility] [id number] Cetirizine HCl [Zyrtec] 10 mg PO DAILY #30 tab Transmission Status: Pending to [place] [id number] Primary Care Physician: Tata Molina MD [Primary Care Provider] - Please follow up with your Primary Care Physician in: 3-5 Days Test Results: Test results from this visit will be discussed in further detail at your follow-up appointment, if applicable. Please Follow Up With: Rehana Riojas NP, DESIGN TECHNOLOGY TEACHER-C When: As scheduled 04/30/2020 Please Follow Up With: Maynor Luciano MD When: 1-2 Weeks Proposed Discharge Date: 04/21/20
--- NOTE | 2020-04-21 12:04 | PCM.DC.SUM ---
<Lashaun Xiong SURGEON PARTNER - Last Filed: 04/22/20 10:17> Discharge Date and Diagnosis - Problem List Patient Problems: Active and Suspected Problems (Last Reviewed 03/26/20 @ 07:[address] Kurt Gore MD) Hyperglycemia (Acute) Dehydration (Acute) Leukocytosis (Acute) Altered level of consciousness (Acute) Hyperglycemia due to type 2 diabetes mellitus (Acute) Hypoxemia (Acute) MICHELE (acute kidney injury) (Acute) HHNC (hyperglycemic hyperosmolar nonketotic coma) (Acute) Date of Admission: 04/18/20 Date of Discharge: 04/22/20 - Primary Discharge Diagnosis Acute Problems: Active Problems (Last Reviewed 03/26/20 @ 07:[address] Kurt Gore MD) 1. Acute metabolic encephalopathy, secondary to polypharmacy, HHS, hypoxia and MICHELE. 2. Uncontrolled type 2 diabetes mellitus with hyperosmolar hyperglycemia 3. Acute kidney injury 4. Chronic hypoxic respiratory insufficiency 5. Acute diarrhea 6. Hypokalemia/hypocalcemia/hypomagnesia/hypophosphatemia 7. History of grand mal seizures 8. Schizophrenia/anxiety/depression 9. Polypharmacy 10. Vitamin D deficiency - Secondary Discharge Diagnosis Chronic Problems: Chronic Problems (Last Reviewed 03/26/20 @ 07:[address] Kurt Gore MD) Blind left eye (Chronic) Type II diabetes mellitus (Chronic) Depression (Chronic) Anxiety (Chronic) Peripheral neuropathy (Chronic) Hyperosmolar hyponatremia (Chronic) Hospital Course and Treatment Imaging Results: Diagnostic Data Diagnostic Data Brain CT 04/18/20 11:29 IMPRESSION: Chronic involutional changes of the brain. Electronically Signed: Carlos Borges, at 12:47 EST , Service support , Chest X-Ray 04/18/20 12:30 IMPRESSION: 5 suggestive of mild degree of bibasilar atelectasis more prominent on the right side although there has been improvement as compared to prior study. Electronically Signed: Carlos Borges, at 12:47 EST , Service support , Operations: None Procedures: None Summary of Care Provided: The patient is a 49 year old F admitted 04/18/2020 due to weakness, confusion and lethargy. 1. Acute metabolic encephalopathy, secondary to polypharmacy, HHS, hypoxia and MICHELE. Brain CT negative. Home sedating regimen held during admission. Mental status at baseline. Home baclofen regimen decreased to 5 mg p.o. 3 times daily. Lyrica decreased to 100 mg twice daily. Risperidone decreased 0.25 mg twice daily. Hydroxyzine discontinued. 2. Uncontrolled type 2 diabetes mellitus with hyperosmolar hyperglycemia- Blood glucose significantly improved. Continue Humalog 16 units 3 times daily and Lantus 15 units twice daily. Follow-up with endocrinology. Patient was no show for previously scheduled appointment in March. 3. Acute kidney injury-resolved with IV fluids. 4. Chronic hypoxic respiratory insufficiency-patient recently discharged from hospital on supplemental oxygen. She was not wearing oxygen when she was admitted and noted to be hypoxic. Chest x-ray with bibasilar atelectasis. Continue supplement oxygen to maintain O2 at or above 90%, wean as tolerated. Encourage ambulation and incentive spirometer. Patient previously prescribed 3 L nasal cannula continuously. Currently requiring 2 L nasal cannula with ambulation. Patient has upcoming follow-up with pulmonary medicine 04/30/2020. 5. Acute diarrhea-unclear etiology. Stool for enteric pathogen and C. difficile negative. Diarrhea resolved. 6. Hypokalemia/hypocalcemia/hypomagnesia/hypophosphatemia-replace per protocol, resolved. 7. History of grand mal seizures-on Keppra. 8. Schizophrenia/anxiety/depression-continue home Cymbalta regimen. Sedating regimen adjusted per #1. 9. Polypharmacy-patient is on multiple sedating medications including Lyrica, tramadol, Vistaril and Risperdal. Held during admission. Doses adjusted as noted above. 10. Vitamin D deficiency-begin vitamin D supplementation. Continue vitamin D 50,000 units once a week for 6 to 8 weeks with further ongoing management by PCP. General: Alert, Oriented x3, Cooperative HEENT: Atraumatic, PERRLA, EOMI, Normocephalic Neck: Supple, No JVD, Negative Carotid Bruits Lungs: Clear to auscultation, Normal air movement Cardiovascular: Regular rate, No murmurs Abdomen: Bowel Sounds Present, Soft, Non Tender, Non-Distended Extremities: No clubbing, No cyanosis, No edema, Capillary Refill Less than 3 Seconds Skin: No rashes, No breakdown Musculoskeletal: No Tenderness to Palpation of Joints or Extremities Neurological: Cranial nerves II-XII grossly intact, Neuro grossly intact Psych/Mental Status: Flat Affect Patient seen and examined prior to discharge. Physical assessment as noted above. Patient is stable for discharge with follow up recommendations as noted above. This patient was seen by CHARLY Montalvo under the supervision of Dr. Denise. Patient Problems: Active and Suspected Problems (Last Reviewed 03/26/20 @ 07:[address] Kurt Gore MD) Hyperglycemia (Acute) Dehydration (Acute) Leukocytosis (Acute) Altered level of consciousness (Acute) Hyperglycemia due to type 2 diabetes mellitus (Acute) Hypoxemia (Acute) MICHELE (acute kidney injury) (Acute) HHNC (hyperglycemic hyperosmolar nonketotic coma) (Acute) - Physical Exam Vitals/I&O's: Vital Signs Temp Pulse Resp BP Pulse Ox 98.5 F 88 16 136/74 H 96 04/21/20 10:10 04/21/20 10:10 04/21/20 10:10 04/21/20 10:10 04/21/20 10:10 Oxygen Flow Rate (L/min) [ 2 AMBULATION with Oxygen] Oxygen Flow Rate (L/min) 2 Oxygen Delivery Method Nasal Cannula Weight: 169 lb 12.095 oz Body Mass Index (BMI) 27.3 Finger Stick Blood Glucose 453 Intake and Output for Last 24 Hours 04/19/20 04/20/20 04/21/20 23:59 23:59 23:59 Intake Total 3526.5 / 3726.5 1000 / 1300 520 / 520 Output Total 250 / 250 Balance 3276.5 / 3476.5 1000 / 1300 520 / 520 Microbiology Past 72 Hours 04/19/20 15:28 Stool Enteric Bacteriology - Final 04/19/20 15:28 Stool C. difficile DNA Amplification - Final 04/18/20 11:45 Mucosa - Nose SARS-CoV-2 Antigen (Rapid) - Final Laboratory Results 04/20/20 12:07: POC Glucose 328 H 04/20/20 16:47: POC Glucose 193 H 04/20/20 21:54: POC Glucose 213 H 04/21/20 06:33: Sodium 141, Potassium 4.2, Chloride 108 H, Carbon Dioxide 30.0, Anion Gap 3 L, BUN 22 H, Creatinine 1.00, Estim Creat Clear Calc 62.31, Est GFR (MDRD) Af Amer 75, Est GFR (MDRD) Non-Af 62, BUN/Creatinine Ratio 22.0 H, Glucose 122 H, Calcium 9.6 04/21/20 06:35: POC Glucose 141 H Current Medications Calcium Carbonate (Calcium Carbonate 500 Mg Tablet) 1,000 mg PO BIDCM [facility] Last Admin: 04/21/20 10:18 Dose: 1,000 mg Documented by: Doxazosin Mesylate (Doxazosin 1 Mg Tablet) 1.5 mg PO QHS [facility] Last Admin: 04/20/20 21:57 Dose: 1.5 mg Documented by: Duloxetine HCl (Duloxetine Hcl 30 Mg Capsule) 30 mg PO BID [facility] Last Admin: 04/21/20 10:16 Dose: 30 mg Documented by: Ergocalciferol (Ergocalciferol 50,000 Unit Capsule) 50,000 unit PO Q7D [facility] Stop: 05/25/20 13:31 Last Admin: 04/20/20 16:48 Dose: 50,000 unit Documented by: Heparin Sodium (Porcine) (Heparin Injection (Vial) 5,000 Unit/Ml Vial) 5,000 unit SC Q12 [facility] Last Admin: 04/21/20 10:16 Dose: 5,000 unit Documented by: Insulin Glargine (Insulin Glargine 100 Units/Ml Pen) 15 units SC BID [facility] Last Admin: 04/21/20 10:17 Dose: 15 u Documented by: Insulin Human Lispro (Insulin Lispro 100 Unit/Ml Insuln.Pen) 0 unit SC ACHS [facility]; Protocol Last Admin: 04/21/20 11:24 Dose: 3 u Documented by: Levetiracetam (Levetiracetam 500 Mg Tablet) 500 mg PO BID [facility] Last Admin: 04/21/20 11:25 Dose: 500 mg Documented by: Nutritional Formula (Lactose Free) (Glucerna Shake 120 Ml Liquid) 120 ml PO 4X/DAY [facility] Last Admin: 04/21/20 10:17 Dose: Not Given Documented by: Ondansetron HCl (Ondansetron 4 Mg/2 Ml Vial) 4 mg IV Q8H PRN PRN PRN Reason: NAUSEA/VOMITING Oxybutynin Chloride (Oxybutynin 5 Mg Tablet) 5 mg PO BID [facility] Last Admin: 04/21/20 10:16 Dose: 5 mg Documented by: Potassium Phos/Sodium Phos (Na Biphos/Potassium Phosphate Packet) 1 packet PO TID [facility] Last Admin: 04/21/20 06:37 Dose: 1 packet Documented by: Sodium Chloride (0.9% Saline Lock 10 Ml Syringe) 10 - 40 ml IV UD PRN PRN Reason: SALINE FLUSH Last Admin: 04/20/20 10:00 Dose: 10 ml Documented by: Discharge Diet: Carb Control Diet Discharge Activity: Return to Normal Activity Call your doctor if you observe: Shortness of breath, Dizziness, Fainting spells, Chest pain Home Medications: Medications to take at Discharge Albuterol Inhaler [Ventolin Hfa] 2 puff INHALATION Q4H PRN PRN 06/10/17 Oxybutynin Chloride [Ditropan Xl] 5 mg PO BID 06/10/17 Duloxetine Hcl [Cymbalta] 30 mg PO BID 10/24/19 Levetiracetam [Keppra] 500 mg PO BID 10/24/19 Prazosin HCl [Minipress] 2 mg PO QHS 10/24/19 Acetaminophen [Tylenol] 500 mg PO TID #0 tab 04/01/20 Furosemide [Lasix] 40 mg PO DAILY 04/18/20 Insulin Lispro [Humalog] 16 unit SQ TIDCM 04/18/20 Acetaminophen [Tylenol Tablet] 650 mg PO Q6H PRN PRN tab 04/21/20 Baclofen [Lioresal] 5 mg PO TID #0 04/21/20 Cetirizine HCl [Zyrtec] 10 mg PO DAILY #30 tab 04/21/20 Ergocalciferol [Vitamin D] 50,000 unit PO Q7D #2 cap 04/21/20 Insulin Glargine [Lantus SoloStar Pen] 15 units SC BID #1 box 04/21/20 Pregabalin [Lyrica] 100 mg PO BID #0 04/21/20 Risperidone 0.25 mg PO BID #0 04/21/20 Following Prescriptions Were Given to Patient: Insulin Glargine [Lantus SoloStar Pen] 15 units SC BID #1 box Transmission Status: Received by [facility] [id number] Ergocalciferol [Vitamin D] 50,000 unit PO Q7D #2 cap Transmission Status: Received by [facility] [id number] Cetirizine HCl [Zyrtec] 10 mg PO DAILY #30 tab Transmission Status: Received by [facility] [id number] Primary Care Physician: Tata Molina MD [Primary Care Provider] - Please follow up with your Primary Care Physician in: 3-5 Days Please Follow Up With: Rehana Riojas NP, SURGEON PARTNER-C When: As scheduled 04/30/2020 Please Follow Up With: Maynor Luciano MD When: 1-2 Weeks Disposition: [facility] facility Minutes spent on discharge:: 35 Patient Condition:: Stable Medical Necessity - Tobacco Use Smoking Status: Unknown if ever smoked Meaningful Use Info Meaningful Use Diagnoses (Choose all that apply): None applicable <David Denise - Last Filed: 04/22/20 18:22> Discharge Date and Diagnosis - Primary Discharge Diagnosis Acute Problems: Active Problems (Last Reviewed 03/26/20 @ 07:[address] Kurt Gore MD) Hyperglycemia (Acute) Dehydration (Acute) Leukocytosis (Acute) Altered level of consciousness (Acute) Hyperglycemia due to type 2 diabetes mellitus (Acute) Hypoxemia (Acute) MICHELE (acute kidney injury) (Acute) HHNC (hyperglycemic hyperosmolar nonketotic coma) (Acute) - Secondary Discharge Diagnosis Chronic Problems: Chronic Problems (Last Reviewed 03/26/20 @ 07:[address] Kurt Gore MD) Blind left eye (Chronic) Type II diabetes mellitus (Chronic) Depression (Chronic) Anxiety (Chronic) Peripheral neuropathy (Chronic) Hyperosmolar hyponatremia (Chronic) Hospital Course and Treatment Summary of Care Provided: The patient is a 49 year old F [] - Physical Exam Vitals/I&O's: Vital Signs Temp Pulse Resp BP Pulse Ox 98.6 F 89 18 113/61 95 04/22/20 13:17 04/22/20 13:17 04/22/20 13:17 04/22/20 13:17 04/22/20 13:17 Oxygen Flow Rate (L/min) [ 2 AMBULATION with Oxygen] Oxygen Flow Rate (L/min) 2 Oxygen Delivery Method Nasal Cannula Weight: 169 lb 12.095 oz Body Mass Index (BMI) 27.3 Finger Stick Blood Glucose 453 Intake and Output for Last 24 Hours 04/20/20 04/21/20 04/22/20 23:59 23:59 23:59 Intake Total 1000 / 1300 520 / 820 940 / 940 Balance 1000 / 1300 520 / 820 940 / 940 Microbiology Past 72 Hours 04/22/20 10:41 Mucosa - Nasopharyngeal SARS-CoV-2 Antigen (Rapid) - Final 04/19/20 15:28 Stool Enteric Bacteriology - Final 04/19/20 15:28 Stool C. difficile DNA Amplification - Final Laboratory Results 04/21/20 23:22: POC Glucose 154 H 04/22/20 07:07: POC Glucose 128 H 04/22/20 11:37: POC Glucose 249 H Addendum: Dr. Denise I personally examined the patient and reviewed the chart. I agree with the above. 49-year-old female with a history of schizophrenia and diabetes presents with weakness and confusion secondary to hypoglycemia. She was started insulin and had significant improvement in her mentation. During her previous admissions it was discussed with her that she might do well at a fpc facility and at that time she declined. She is now willing to go to a fpc facility as she does need more intensive help to manage her diabetes as well as rehab to be able to live home alone. Her boyfriend states that she needs a lot of help in care and he works too much to be able to take care of her at home. 04/22/2020: Feels better today, is willing to go to a fpc facility for rehab and further assistance in teaching for her diabetes. Continue with her IV insulin on discharge. Discussed the plan for discharge today and she expressed understanding of the risks and benefits of going to fpc facility today and would like to go. Inpatient E&M: [id number] Disch Hosp
--- NOTE | 2020-04-21 12:15 | CASEMGMT ---
Addendum entered by Selvin Boyd 04/22/20 00:17: 1215: addendum: Philip stated pt go to an appt w/Dr Molina's MANAGER PERSONAL since her last admission, but they had to cancel Dr Luciano's appt d/t conflicting with his work schedule. He states he did not call to try and re-schedule with Dr Luciano. Original Note: KIARRA SAHA Re-admission note: Prior admission: 03/26/20 through 04/01/20. Admitted with [facility]. [facility]. Current admission: Re-admitted w/Hyperglycemia and encephalopathy O2: Home ambulatory testing has been done. Pt does not require O2 @ rest and only qualifies for O2 @ 2 L/M w/exertion. Pt's current O2 orders were for 3 l/m contin and 4 L/M w/exertion. Updated script with less O2 needs received from Lashaun Xiong NP, and faxed to [facility] at this time. KIARRA SAHA to room to meet with patient. KIARRA SAHA introduced self and role at [facility]. Pt voices understanding and consents to assessment at this time. Pt resting in bed in no distress at this time. Pt is alert and able to answer some questions appropriately but forgetful/difficulty answering other questions. Pt states she checks her BS's sometimes and her sig other, Philip, checks it at times as well and helps w/her medications/administering her medications. Pt states does not recall, when her BS's were running high @ home if they contacted her PCP or HHC and states, I don't even remember how I got to the hospital Pt gave permission for KIARRA SAHA to call her significant other, Philip, who she lives with. Call placed at this time, while @ pt's bedside. Discussed current home/living situation w/Philip at this time. Philip states he often has to work 12-hr shifts and pt is home alone while he is at work. He states his shift/days change/alternate. He state he manages most of pt's medications/appts/insulin, and care. He states they do have a glucometer and that it is working properly and they have all the supplies needed for it. He states he will check pt's BS in AM, if she is awake before he leaves for work, and then again when he returns home, and administers the insulin. He states he does not think pt is checking her BS's during the day or giving herself insulin. He states she is very limited in her ability and that she has been deteriorating with what she can do. He also states he is not certain what insulin's pt is supposed to be taking and that he does not know if pt received the right kind of insulins from [facility]. He states he has been using the Lispro but thought pt was supposed to be taking a long-acting insulin as well. He states he tries to schedule appts when he is off of work, but this is often difficult to arrange. He also states he has difficulty with other places allowing him to do things for her, since they are not and he is not POA. RN MARIA A informed him, APRIL may be available to help pt with POA/AD paperwork, but she would need to be alert/oriented in order to complete these. He voices understanding. He was made aware pt is currently on puree diet and ST recommends additional ST and that [facility] does not have ST. Discussed option of ST @ [place] w/[facility] Van transportation, but pt states that she will not go anywhere without Philip. Philip states this is d/t pt has difficulty walking and is afraid she will fall down, stating she has been unsteady. Again, he voices concern w/pt being able to properly care for herself and manage her BS's/insulin while he is at work. KIARRA SAHA discussed possible option of SNF w/pt and Philip and they are both agreeable to this at this time. Elisabeth CHEN, made aware. Ayden COPPOLA RN, CM
[2020-04-21 12:26] LABS: Bedside Glucose 203 mg/dL (70-110)
--- NOTE | 2020-04-21 12:39 | CASEMGMT ---
RN MARIA A spoke with patient and her significant other and they agreed to SNF. SW went to patient's room, introduced self and role at [facility]. She is in agreement with going to a SNF short term. She asked SW to call her significant other to see where he thinks she should go. SW called patient's significant other and he agreed to [facility] or [facility]. APRIL told him SW will work on this and let him know. APRIL called Bertha at [facility] and made referral. APRIL also faxed referral. Await response from [facility]. Elisabeth FOSTER MSW
[2020-04-21] MEDS: Glucerna Shake 120 ML LIQUID PO ×3 (13:26→23:10)
[2020-04-21] MEDS: Acetaminophen 325 MG Tablet 650 MG PO ×2 (13:26→19:49)
--- NOTE | 2020-04-21 14:38 | CASEMGMT ---
APRIL received a call from Bertha with [facility]. She said that their clinical team is meeting to discuss their bed situation. She has not heard from them yet. APRIL called [facility] with referral and also faxed information. This is patient's 2nd choice. Await responses from [facility] and [facility]. Elisabeth DANIEL
--- NOTE | 2020-04-21 14:49 | PCM.PROGNOTE ---
<Davide Xiongssica [employer] - Last Filed: 04/21/20 14:51> Patient Problems: Active and Suspected Problems (Last Reviewed 03/26/20 @ 07:[address] Kurt Gore MD) Hyperglycemia (Acute) Dehydration (Acute) Leukocytosis (Acute) Altered level of consciousness (Acute) Hyperglycemia due to type 2 diabetes mellitus (Acute) Hypoxemia (Acute) MICHELE (acute kidney injury) (Acute) HHNC (hyperglycemic hyperosmolar nonketotic coma) (Acute) Subjective: Patient seen and examined. Alert and responding appropriately. Mental status appears at baseline. Denies further diarrhea. Agreeable to SNF. - Physical Exam Vitals/I&O's: Vital Signs Temp Pulse Resp BP Pulse Ox 98.5 F 88 16 136/74 H 96 04/21/20 10:10 04/21/20 10:10 04/21/20 10:10 04/21/20 10:10 04/21/20 10:10 Oxygen Flow Rate (L/min) [ 2 AMBULATION with Oxygen] Oxygen Flow Rate (L/min) 2 Oxygen Delivery Method Nasal Cannula Weight: 169 lb 12.095 oz Body Mass Index (BMI) 27.3 Finger Stick Blood Glucose 453 Intake and Output for Last 24 Hours 04/19/20 04/20/20 04/21/20 23:59 23:59 23:59 Intake Total 3526.5 / 3726.5 1000 / 1300 520 / 520 Output Total 250 / 250 Balance 3276.5 / 3476.5 1000 / 1300 520 / 520 General: Alert, Oriented x3, Cooperative HEENT: Atraumatic, PERRLA, EOMI, Normocephalic Neck: Supple, No JVD, Negative Carotid Bruits Lungs: Clear to auscultation, Normal air movement Cardiovascular: Regular rate, No murmurs Abdomen: Bowel Sounds Present, Soft, Non Tender, Non-Distended Extremities: No clubbing, No cyanosis, No edema, Capillary Refill Less than 3 Seconds Skin: No rashes, No breakdown Musculoskeletal: No Tenderness to Palpation of Joints or Extremities Neurological: Cranial nerves II-XII grossly intact, Neuro grossly intact Psych/Mental Status: Flat Affect Microbiology Past 72 Hours 04/19/20 15:28 Stool Enteric Bacteriology - Final 04/19/20 15:28 Stool C. difficile DNA Amplification - Final 04/18/20 11:45 Mucosa - Nose SARS-CoV-2 Antigen (Rapid) - Final Laboratory Results 04/20/20 16:47: POC Glucose 193 H 04/20/20 21:54: POC Glucose 213 H 04/21/20 06:33: Sodium 141, Potassium 4.2, Chloride 108 H, Carbon Dioxide 30.0, Anion Gap 3 L, BUN 22 H, Creatinine 1.00, Estim Creat Clear Calc 62.31, Est GFR (MDRD) Af Amer 75, Est GFR (MDRD) Non-Af 62, BUN/Creatinine Ratio 22.0 H, Glucose 122 H, Calcium 9.6 04/21/20 06:35: POC Glucose 141 H 04/21/20 11:23: POC Glucose 203 H Current Medications Acetaminophen (Acetaminophen 325 Mg Tablet) 650 mg PO Q6H PRN PRN PRN Reason: Pain 1-10 or Fever Last Admin: 04/21/20 13:26 Dose: 650 mg Documented by: Calcium Carbonate (Calcium Carbon[facility] 500 Mg [facility] Last Admin: 04/21/20 10:18 Dose: 1,000 mg Documented by: Doxazosin Mesylate (Doxazosin 1 Mg Tablet) 1.5 mg PO QHS ON LICENSE OF [facility] Last Admin: 04/20/20 21:57 Dose: 1.5 mg Documented by: Duloxetine HCl (Duloxetine Hcl 30 Mg Capsule) 30 mg PO BID ON LICENSE OF [facility] Last Admin: 04/21/20 10:16 Dose: 30 mg Documented by: Ergocalciferol (Ergocalciferol 50,000 Unit Capsule) 50,000 unit PO Q7D ON LICENSE OF [facility] Stop: 05/25/20 13:31 Last Admin: 04/20/20 16:48 Dose: 50,000 unit Documented by: Heparin Sodium (Porcine) (Heparin Injection (Vial) 5,000 Unit/Ml Vial) 5,000 unit SC Q12 ON LICENSE OF [facility] Last Admin: 04/21/20 10:16 Dose: 5,000 unit Documented by: Insulin Glargine (Insulin Glargine 100 Units/Ml Pen) 15 units SC BID ON LICENSE OF [facility] Last Admin: 04/21/20 10:17 Dose: 15 u Documented by: Insulin Human Lispro (Insulin Lispro 100 Unit/Ml Insuln.Pen) 0 unit SC [facility] ON LICENSE OF [facility]; Protocol Last Admin: 04/21/20 11:24 Dose: 3 u Documented by: Levetiracetam (Levetiracetam 500 Mg Tablet) 500 mg PO BID ON LICENSE OF [facility] Last Admin: 04/21/20 11:25 Dose: 500 mg Documented by: Nutritional Formula (Lactose Free) (Glucerna Shake 120 Ml Liquid) 120 ml PO 4X/DAY ON LICENSE OF [facility] Last Admin: 04/21/20 13:26 Dose: 120 ml Documented by: Ondansetron HCl (Ondansetron 4 Mg/2 Ml Vial) 4 mg IV Q8H PRN PRN PRN Reason: NAUSEA/VOMITING Oxybutynin Chloride (Oxybutynin 5 Mg Tablet) 5 mg PO BID ON LICENSE OF [facility] Last Admin: 04/21/20 10:16 Dose: 5 mg Documented by: Potassium Phos/Sodium Phos (Na Biphos/Potassium Phosphate Packet) 1 packet PO TID ON LICENSE OF [facility] Last Admin: 04/21/20 13:27 Dose: 1 packet Documented by: Sodium Chloride (0.9% Saline Lock 10 Ml Syringe) 10 - 40 ml IV UD PRN PRN Reason: SALINE FLUSH Last Admin: 04/20/20 10:00 Dose: 10 ml Documented by: Medical Necessity - Tobacco Use Smoking Status: Unknown if ever smoked Assessment/Plan All Active Problems (Last Reviewed 03/26/20 @ 07:[address] Kurt Gore MD) Hyperglycemia (Acute) Dehydration (Acute) Leukocytosis (Acute) Altered level of consciousness (Acute) Hyperglycemia due to type 2 diabetes mellitus (Acute) Hypoxemia (Acute) MICEHLE (acute kidney injury) (Acute) HHNC (hyperglycemic hyperosmolar nonketotic coma) (Acute) 1. Acute metabolic encephalopathy, suspect secondary to polypharmacy, HHS, hypoxia and MICHELE. Brain CT negative. Treat underlying processes. Hold sedating regimen. Mental status improved. 2. Uncontrolled type 2 diabetes mellitus with hyperosmolar hyperglycemia- Blood glucose significantly improved. Accu-Cheks with sliding scale insulin. Continue Lantus 15 units twice daily. Patient will need long-acting regimen Rx at discharge. 3. Acute kidney injury-resolved with IV fluids. 4. Acute hypoxia-secondary to atelectasis. Chest x-ray with bibasilar atelectasis. Continue supplement oxygen to maintain O2 at or above 90%, wean as tolerated. Encourage ambulation and incentive spirometer. Walking pulse ox prior to discharge. 5. Acute diarrhea-unclear etiology. Stool for enteric pathogen and C. difficile negative. Diarrhea resolved. 6. Hypokalemia/hypocalcemia/hypomagnesia/hypophosphatemia-replace per protocol, resolved. 7. History of grand mal seizures-on Keppra. 8. Schizophrenia/anxiety/depression-continue home Cymbalta regimen. Continue to hold sedating regimen. 9. Polypharmacy-patient is on multiple sedating medications including Lyrica, tramadol, Vistaril and Risperdal. Hold at this time. Will need reevaluated at discharge. 10. Vitamin D deficiency-begin vitamin D supplementation DVT prophylaxis-heparin subcu Discharge planning: SNF pending acceptance. This patient was seen by CHARLY Montalvo under the supervision of Dr. Denise. <David Denise F - Last Filed: 04/21/20 17:54> - Physical Exam Vitals/I&O's: Vital Signs Temp Pulse Resp BP Pulse Ox 98.1 F 82 16 148/85 H 93 04/21/20 15:13 04/21/20 15:13 04/21/20 15:13 04/21/20 15:13 04/21/20 15:32 Oxygen Flow Rate (L/min) [ 2 AMBULATION with Oxygen] Oxygen Flow Rate (L/min) 2 Oxygen Delivery Method Room Air Weight: 169 lb 12.095 oz Body Mass Index (BMI) 27.3 Finger Stick Blood Glucose 453 Intake and Output for Last 24 Hours 04/19/20 04/20/20 04/21/20 23:59 23:59 23:59 Intake Total 3526.5 / 3726.5 1000 / 1300 520 / 520 Output Total 250 / 250 Balance 3276.5 / 3476.5 1000 / 1300 520 / 520 Microbiology Past 72 Hours 04/19/20 15:28 Stool Enteric Bacteriology - Final 04/19/20 15:28 Stool C. difficile DNA Amplification - Final Laboratory Results 04/20/20 21:54: POC Glucose 213 H 04/21/20 06:33: Sodium 141, Potassium 4.2, Chloride 108 H, Carbon Dioxide 30.0, Anion Gap 3 L, BUN 22 H, Creatinine 1.00, Estim Creat Clear Calc 62.31, Est GFR (MDRD) Af Amer 75, Est GFR (MDRD) Non-Af 62, BUN/Creatinine Ratio 22.0 H, Glucose 122 H, Calcium 9.6 04/21/20 06:35: POC Glucose 141 H 04/21/20 11:23: POC Glucose 203 H 04/21/20 17:35: POC Glucose 216 H Current Medications Acetaminophen (Acetaminophen 325 Mg Tablet) 650 mg PO Q6H PRN PRN PRN Reason: Pain 1-10 or Fever Last Admin: 04/21/20 13:26 Dose: 650 mg Documented by: Calcium Carbonate (Calcium Carbonate 500 Mg Tablet) 1,000 mg PO BIDCM ON LICENSE OF [facility] Last Admin: 04/21/20 17:38 Dose: 1,000 mg Documented by: Doxazosin Mesylate (Doxazosin 1 Mg Tablet) 1.5 mg PO QHS ON LICENSE OF [facility] Last Admin: 04/20/20 21:57 Dose: 1.5 mg Documented by: Duloxetine HCl (Duloxetine Hcl 30 Mg Capsule) 30 mg PO BID ON LICENSE OF [facility] Last Admin: 04/21/20 10:16 Dose: 30 mg Documented by: Ergocalciferol (Ergocalciferol 50,000 Unit Capsule) 50,000 unit PO Q7D ON LICENSE OF [facility] Stop: 05/25/20 13:31 Last Admin: 04/20/20 16:48 Dose: 50,000 unit Documented by: Heparin Sodium (Porcine) (Heparin Injection (Vial) 5,000 Unit/Ml Vial) 5,000 unit SC Q12 ON LICENSE OF [facility] Last Admin: 04/21/20 10:16 Dose: 5,000 unit Documented by: Insulin Glargine (Insulin Glargine 100 Units/Ml Pen) 15 units SC BID ON LICENSE OF [facility] Last Admin: 04/21/20 10:17 Dose: 15 u Documented by: Insulin Human Lispro (Insulin Lispro 100 Unit/Ml Insuln.Pen) 0 unit SC [facility] ON LICENSE OF [facility]; Protocol Last Admin: 04/21/20 17:36 Dose: 6 u Documented by: Levetiracetam (Levetiracetam 500 Mg Tablet) 500 mg PO BID ON LICENSE OF [facility] Last Admin: 04/21/20 11:25 Dose: 500 mg Documented by: Nutritional Formula (Lactose Free) (Glucerna Shake 120 Ml Liquid) 120 ml PO 4X/DAY ON LICENSE OF [facility] Last Admin: 04/21/20 17:40 Dose: 120 ml Documented by: Ondansetron HCl (Ondansetron 4 Mg/2 Ml Vial) 4 mg IV Q8H PRN PRN PRN Reason: NAUSEA/VOMITING Oxybutynin Chloride (Oxybutynin 5 Mg Tablet) 5 mg PO BID ON LICENSE OF [facility] Last Admin: 04/21/20 10:16 Dose: 5 mg Documented by: Potassium Phos/Sodium Phos (Na Biphos/Potassium Phosphate Packet) 1 packet PO TID ON LICENSE OF [facility] Last Admin: 04/21/20 13:27 Dose: 1 packet Documented by: Sodium Chloride (0.9% Saline Lock 10 Ml Syringe) 10 - 40 ml IV UD PRN PRN Reason: SALINE FLUSH Last Admin: 04/20/20 10:00 Dose: 10 ml Documented by: Addendum: Dr. Denise I personally examined the patient and reviewed the chart. I agree with the above. 49-year-old female with a history of schizophrenia and diabetes presents with weakness and confusion secondary to hypoglycemia. She was started insulin and had significant improvement in her mentation. During her previous admissions it was discussed with her that she might do well at a retirement facility and at that time she declined. She is now willing to go to a retirement facility as she does need more intensive help to manage her diabetes as well as rehab to be able to live home alone. Her boyfriend states that she needs a lot of help in care and he works too much to be able to take care of her at home. Inpatient E&M: [id number] [facility] L2
--- NOTE | 2020-04-21 14:52 | PCM.EXTCARCO ---
- Diet 04/19/20 11:34 Diet: Carbohydrate Controlled Food consistency:: Pureed Liquid Consistency:: Regular/Thin Is pt able to select menu?: No Diet Comments: distant supervision, only eat when alert - Routine Orders/Code Status Enema Type: Fleetz Enema Frequency: Daily PRN Suppository Type: Dulcolax 10mg Suppository Frequency: Daily PRN O2 Liters per Minute: 2 O2 Frequency: Continuous Keep PO Greater than or Equal to (%): 90 - Wound(s) RT ELBOW Wound Type: Abrasion LT KNEE Wound Type: Abrasion - Suggestions for Active Care Change Position every (hours): 2 Times a day to sit in chair: 3 - Therapies Physical Therapy: Eval and Treat Occupational Therapy: Eval and Treat Speech Therapy: Eval and Treat - Problem/Diagnosis (1) Blind left eye Status: Chronic (2) Type II diabetes mellitus Status: Chronic (3) Depression Status: Chronic (4) Anxiety Status: Chronic (5) Peripheral neuropathy Status: Chronic (6) Hyperglycemia Status: Acute (7) Dehydration Status: Acute (8) Leukocytosis Status: Acute (9) Sepsis due to urinary tract infection Status: Inactive (10) Altered level of consciousness Status: Acute (11) Hyperglycemia due to type 2 diabetes mellitus Status: Acute (12) Hypoxemia Status: Acute (13) MICHELE (acute kidney injury) Status: Acute (14) Hyperosmolar hyponatremia Status: Chronic (15) HHNC (hyperglycemic hyperosmolar nonketotic coma) Status: Acute - Allergies/Procedures Done in Hospital Allergies/Adverse Reactions: Allergies Sulfa (Sulfonamide Antibiotics) Allergy (Verified 04/18/20 11:16) Hives Procedures: None - Type of Care/Length of Stay Estimated LOS: Convalescent Care Less Than 30 days Type of Care Needed: Skilled Rehab Potential: Fair Prognosis: Fair - Additional Orders/Day of Discharge H&P will serve as current which was dated: 04/18/20 Day of Discharge: 04/22/20 - Dietary and Speech Recommendations Dietitian Recommendations/Changes: Continue current diet as ordered - Follow Up Care Primary Care Physician: Tata Molina MD [Primary Care Provider] - Please follow up with your Primary Care Physician in: 3-5 Days Please Follow Up With: Rehana Riojas NP, PROPERTY ECONOMIST-C When: As scheduled 04/30/2020 Please Follow Up With: Maynor Luciano MD When: 1-2 Weeks
[2020-04-21 17:45] LABS: Bedside Glucose 216 mg/dL (70-110)
[2020-04-21] MEDS: Doxazosin 1 MG Tablet 1.5 MG PO (23:06)
[2020-04-21] MEDS: Loratadine 10 MG Tablet PO (23:20)
[2020-04-21 23:35] LABS: Bedside Glucose 154 mg/dL (70-110)
[2020-04-22 03:00] VITALS: BP 149/82; PULSE 80; RESP 16; TEMP 37.2; O2SAT 93
[2020-04-22] MEDS: Acetaminophen 325 MG Tablet 650 MG PO ×2 (03:26→10:46)
[2020-04-22] MEDS: Na Biphos/Potassium Phosphate PACKET 1 PACKET PO ×2 (05:52→13:18)
[2020-04-22 06:59] VITALS: PULSE 82
[2020-04-22 07:14] VITALS: O2SAT 93
[2020-04-22 08:40] LABS: Bedside Glucose 128 mg/dL (70-110)
[2020-04-22 09:00] VITALS: BP 118/68; PULSE 70; RESP 18; TEMP 36.6; O2SAT 96
[2020-04-22] MEDS: Oxybutynin 5 MG Tablet PO (09:02)
[2020-04-22] MEDS: Loratadine 10 MG Tablet PO (09:02)
[2020-04-22] MEDS: Calcium Carbonate 500 MG Tablet 1000 MG PO (09:02)
[2020-04-22] MEDS: DULoxetine Hcl 30 MG Capsule PO (09:02)
[2020-04-22] MEDS: levETIRAcetam 500 MG Tablet PO (09:02)
[2020-04-22] MEDS: 0.9% Saline Lock 10 ML Syringe IV (09:02)
[2020-04-22] MEDS: Heparin Injection (Vial) 5,000 UNIT/ML VIAL 5000 UNIT SC (09:02)
--- NOTE | 2020-04-22 09:48 | CASEMGMT ---
APRIL spoke with Bertha at [facility] and they are not able to take patient as they still only have one bed open and need to keep it for their residents. APRIL called [facility], but there was no answer. SW will check back in a little bit. Elisabeth FOSTER MANUAL CONTROL [employer]UG[employer] PRESS OPERATOR
--- NOTE | 2020-04-22 10:22 | CASEMGMT ---
Addendum entered by Elisabeth Choi 04/22/20 10:35: Patient is on will call with [facility]. Elisabeth DANIEL Original Note: SW received a call from Britt at [facility]. They can take patient today. Physician ordered a rapid COVID test. Once the results come back SW will arrange transport. APRIL notified patient that her significant other suggested [facility] or [facility]. [facility] full, but [facility] can take her. She was in agreement with this plan. APRIL told her SW will call Philip and let him know. SW also told patient that SW completed a waiver services application and faxed it to [facility]. (SW did this right before going into patient's room). SW told her SW will let her know when SW has a time. SW will put patient on the will call list with [facility]. Elisabeth DANIEL
--- NOTE | 2020-04-22 10:37 | CASEMGMT ---
KIARRA SAHA NOTE: Call placed to Nathaly @ [facility]. She was made aware pt is being d/c'd to SNF. Ayden COPPOLA RN CM
--- NOTE | 2020-04-22 10:44 | PHA.DC.MR ---
Pharmacy Service has performed discharge medication reconciliation for this patient. The patient's discharge medication list was reviewed for discrepancies and discrepancies were resolved. Home Medications Albuterol Inhaler [Ventolin Hfa] 2 puff INHALATION Q4H PRN PRN 06/10/17 Oxybutynin Chloride [Ditropan Xl] 5 mg PO BID 06/10/17 Duloxetine Hcl [Cymbalta] 30 mg PO BID 10/24/19 Levetiracetam [Keppra] 500 mg PO BID 10/24/19 Prazosin HCl [Minipress] 2 mg PO QHS 10/24/19 Acetaminophen [Tylenol] 500 mg PO TID #0 tab 04/01/20 Furosemide [Lasix] 40 mg PO DAILY 04/18/20 Insulin Lispro [Humalog] 16 unit SQ TIDCM 04/18/20 Acetaminophen [Tylenol Tablet] 650 mg PO Q6H PRN PRN tab 04/21/20 Baclofen [Lioresal] 5 mg PO TID #0 04/21/20 Cetirizine HCl [Zyrtec] 10 mg PO DAILY #30 tab 04/21/20 Ergocalciferol [Vitamin D] 50,000 unit PO Q7D #2 cap 04/21/20 Insulin Glargine [Lantus SoloStar Pen] 15 units SC BID #1 box 04/21/20 Pregabalin [Lyrica] 100 mg PO BID #0 04/21/20 Risperidone 0.25 mg PO BID #0 04/21/20
[2020-04-22] MEDS: Insulin Lispro 100 UNIT/ML INSULN.PEN SC (11:38)
[2020-04-22 11:41] LABS: Bedside Glucose 249 mg/dL (70-110)
--- NOTE | 2020-04-22 11:54 | CASEMGMT ---
Patient is ready for discharge. APRIL called [facility] and arranged for patient to get picked up at 1330 via wheelchair van. APRIL notified RN who notified patient and her significant other. APRIL faxed negative COVID test to [facility]. Plan: d/c to [facility] under skilled level of care on a convalescent stay. [facility] transported via [facility] van. Elisabeth FOSTER MSW
[2020-04-22 13:17] VITALS: BP 113/61; PULSE 89; RESP 18; TEMP 37; O2SAT 95
--- NOTE | 2020-04-22 13:47 | NURSING ---
report called to nurse Aguayo at [facility]. Okay for patient to go
== END 2020-04-22 13:46 | disposition skilled nursing facility (03) | DRG 52 ==
LOC: ED 12:16 → PCU 15:09
PROVIDERS: Nurse Practitioner Family; Student in an Organized Health Care Education/Training Program; Admitting Provider Internal Medicine; Emergency Provider Emergency Medicine; PCP Internal Medicine; Visit Provider Family Medicine
DX: G92 Toxic encephalopathy (principal); E11.01 Type 2 diabetes mellitus with hyperosmolarity with coma; T50.905A Adverse effect of unspecified drugs, medicaments and biological substances, initial encounter; N17.9 Acute kidney failure, unspecified; J98.11 Atelectasis; E86.0 Dehydration; R09.02 Hypoxemia; R19.7 Diarrhea, unspecified; E55.9 Vitamin D deficiency, unspecified; E87.1 Hypo-osmolality and hyponatremia; E87.6 Hypokalemia; F32.9 Major depressive disorder, single episode, unspecified; F41.9 Anxiety disorder, unspecified; F20.9 Schizophrenia, unspecified; G62.9 Polyneuropathy, unspecified; H54.62 Unqualified visual loss, left eye, normal vision right eye; Z79.4 Long term (current) use of insulin; G40.409 Other generalized epilepsy and epileptic syndromes, not intractable, without status epilepticus
CPT/HCPCS: 36415; 36600; 70450; 71045; 80048; 80053; 80307; 80320; 81002; 82140; 82306; 82803; 82962; 83735; 84100; 84484; 85025; 85027; 87426; 87493; 87506; 92507; 92526; 92610; 93005; 97110; 97116; 97162; 97166; 97535; 97802; 99251; 99285; 99406; J7030; A4216; G0463; G0480

== ENCOUNTER 2020-06-21 07:12 | Emergency (ER) | payer MEDICAID, SELFPAY ==
[2020-06-21] VITALS (13 sets, daily range): BP systolic 106–150; BP diastolic 65–79; PULSE 68–84; RESP 12–19; TEMP 36.6; O2SAT 74–98; BMI 28.9
--- NOTE | 2020-06-21 07:15 | RAD_ITS ---
STUDY: X-RAY - LEFT TIBIA AND FIBULA REASON FOR EXAM: Female, 50 years old. injury, post reduction TECHNIQUE: 2 view(s) of the tibia and fibula were obtained. COMPARISON: None. FINDINGS: Acute laterally displaced transverse fracture through the medial malleolus the tibia. Acute laterally displaced comminuted fracture of the distal fibula proximal tibial plafond. The soft tissue structures are unremarkable. RAD/Tibia & Fibula 2 Views IMPRESSION: Acute laterally displaced comminuted fracture the distal fibula proximal tibial plafond with a transverse fracture through the medial malleolus the tibia. Electronically Signed: Pavan Wilson MD at 8:53 EST Tel , Service support ,
--- NOTE | 2020-06-21 07:15 | ED.RN ---
pt drowsy on arrival. eyes heavy to keep open. lips mildly purplish to color. sats 83%. placed on 2l o2. pt reports that she wears 2l o2 as needed at home due to she was short of breath. pt denies any respiratory dx.
--- NOTE | 2020-06-21 07:15 | RAD_ITS ---
STUDY: X-RAY - LEFT ANKLE REASON FOR EXAM: Female, 50 years old. injury, post reduction TECHNIQUE: 3 view(s) of the ankle. COMPARISON: None. FINDINGS: Acute comminuted laterally displaced oblique fracture the distal fibula proximal to the tibial plafond. Associated the laterally displaced transverse avulsion fracture through the medial malleolus the tibia. Lateral subluxation of the tibiotalar joint. Normal visualized talus and calcaneus. The visualized subtalar, talonavicular, calcaneocuboid and tarsal articulations are normal. The soft tissue structures are unremarkable. RAD/Ankle min 3 Views IMPRESSION: Lateral subluxation of the tibiotalar joint with transverse fracture through the medial malleolus the tibia and comminuted fracture the distal fibula. Electronically Signed: Pavan Wilson MD at 8:52 EST Tel , Service support ,
--- NOTE | 2020-06-21 07:19 | ED.VISSUMM ---
- ER Visit Summary Date of Service: 06/21/20 Chief Complaint: Left ankle injury History of Present Illness: The patient is a 50 F who presents with left ankle injury that occurred late last night. Patient states she fell and twisted her left ankle. Patient does not think she passed out. Patient thinks she tripped and fell. Patient describes her pain as stabbing and throbbing. Patient states the pain is worse with movement. Patient does admit to some tingling in her toes of her left foot. Patient denies any weakness. Patient denies any head injury or loss of consciousness. Patient denies any other injuries. Physical Examination: Vital signs are stable. Patient is afebrile. Patient is in no acute distress. Musculoskeletal exam reveals obvious deformity over the left ankle. There is a superficial abrasion on the medial aspect of the left ankle. This does not communicate with the fracture. There is no bleeding noted. There is some tenting of the skin over the medial aspect of the left ankle. Range of motion was limited in all motions of the left ankle secondary to pain. There is some mild tenderness over the proximal fibula. Pedal pulses are equal bilaterally. Sensation was intact to light touch in all digits. Capillary refill was less than 2 seconds in all digits. Test Results: CBC showed a mild leukocytosis of 11.3. Comprehensive metabolic profile showed a slightly elevated BUN and creatinine of 49 and 1.89. These are consistent with prior results. Glucose was slightly elevated at 289. X-rays of the left ankle were obtained. There are 3 views. On my interpretation, there is a fracture of the medial malleolus, a comminuted fracture of the distal fibula, and a fracture of the posterior malleolus. There is some mild displacement of the talus and medial malleolus laterally. X-ray of the left tibia and fibula were obtained. There are 2 views. On my interpretation, there is no fracture of the proximal fibula. The fractures of the distal tibia and fibula were also noted. Radiologist also interpreted the x-rays and agrees. Emergency Department Course and Treatment: Because of the tenting of the skin, immediate reduction was performed. Patient was given a dose of morphine here. Patient gave verbal consent for conscious sedation. Patient was advised of the risks and benefits. Patient is agreeable with this. Patient had no further questions. Patient was given a dose of 80 mg of propofol. Bacitracin and Telfa dressing was placed over the abrasion. The ankle was reduced. Patient was placed in a well-padded, custom made sugar tong and posterior splint. Patient did have an episode where her oxygen saturation dropped into the 80s. Patient was placed on a nonrebreather mask. Patient's oxygen improved. Patient tolerated the procedure well. Patient was returned back to nasal cannula oxygen. Patient required 3 L nasal cannula to maintain oxygen saturation of 93%. Patient states she has oxygen at home but only takes it as needed. states that he is unable to care for the patient at home. Patient was recently at [facility]. workers compensation manager was consulted. Patient will be able to go to the [facility] from the emergency department. Case was discussed with Dr. Andrae Dumont from orthopedics. He will have the patient follow-up with him next week and schedule her for surgery as an outpatient. Patient and family understood and were agreeable with the plan. All questions were answered. Disposition: Transfer to extended care facility Impression: 1. Acute fracture dislocation left ankle This note was generated with [employer] dictation software. It may contain incorrect words, spelling, and punctuation that were not noted in review of the chart prior to signing ED Disposition - Plan for ED Patient: Disposition: [facility] Facility Diagnosis: Trimalleolar fracture of left ankle Instructions: ED Ankle Fracture Referrals: Tata Molina MD [Primary Care Provider] - 5-7 Days Andrae Dumont MD [STAFF PHYSICIAN] - 3-5 Days
--- NOTE | 2020-06-21 07:30 | ED.RN ---
pt takes lyrica and baclafen at home
[2020-06-21] MEDS: Morphine 4 MG/ML Syringe IV (07:31)
[2020-06-21 07:33] LABS: Absolute Neutrophil Count 7.3 X10^3/uL (2.0-7.7); Basophil# 0.09 X10^3/uL; Basophil% 0.8 % (0-1); Eosinophil# 0.21 X10^3/uL; Eosinophils% 1.9 % (0-5); Hematocrit 45.6 % (37-47); Hemoglobin 14.3 g/dL (12.0-15.0); Lymphocyte % 22.1 % (19-41); Mean Corp Hgb Conc 31.4 g/dL (32-36); Mean Corpuscular Hgb 27.3 pg (27.0-32.0); Mean Corpuscular Volume 87.2 fL (81-99); Mean Platelet Vol. 12.5 fl (6.2-12.0); Monocyte# 1.12 X10^3/uL; Monocyte% 9.9 % (0-10); NRBC Flagged by Analyzer 0.2 % (0-5); Neutrophil # 7.32 X10^3/uL (2.7-7.7); Neutrophil % 64.5 % (47-70); Platelet Count 225 K/mm3 (150-450); RBC Distribution Width CV 17.1 % (11.6-14.6); RBC Distribution Width SD 51.8 fl (35.1-43.9); Red Blood Count 5.23 M/mm3 (4.2-5.4); White Blood Count 11.3 K/mm3 (4.4-11.0)
[2020-06-21 07:54] LABS: ALB/GLOB Ratio 0.6 RATIO (0.9-2.4); AST(SGOT) 18 U/L (15-37); Alanine Aminotransfer ALT/SGPT 70 U/L (13-56); Albumin, Serum 2.8 g/dL (3.2-5.0); Alkaline Phosphatase 201 U/L (45-117); Anion Gap 3 (5-15); BUN 49 mg/dL (7-18); BUN/Creat Ratio 25.9 RATIO (10-20); Calcium,Total 9.3 mg/dL (8.5-10.1); Chloride 100 mmol/L (98-107); Creatinine, Serum 1.89 mg/dL (0.55-1.02); EST Glomerular Filtration Rate 30 mL/min (>60); Est Glom Filt Rate - Afr Amer 36 mL/min (>60); Globulin 4.5 g/dL (2.2-4.2); Glucose 289 mg/dL (74-106); Potassium 4.2 mmol/L (3.5-5.1); Protein, Total 7.3 g/dL (6.4-8.2); Sodium Level 135 mmol/L (136-145)
--- NOTE | 2020-06-21 08:37 | RAD_ITS ---
STUDY: X-RAY CHEST REASON FOR EXAM: Female, 50 years old. hypoxia TECHNIQUE: Single AP portable view of the chest. COMPARISON: 04/18/2020 FINDINGS: No change in the linear opacities in both lungs consistent with bilateral discoid atelectasis. There is no demonstrated pleural abnormality. There is moderate cardiac enlargement. Normal mediastinum and rachael. Normal visualized pulmonary arteries. Normal visualized aortic arch and descending thoracic aorta. Normal visualized thoracic spine. Normal visualized ribs, clavicles, and shoulders. There is no demonstrated abnormality of the visualized soft tissue structures of the upper abdomen. RAD/Chest 1 View (Portable) IMPRESSION: Bilateral discoid atelectasis. Electronically Signed: Pavan Wilson MD at 9:26 EST Tel , Service support ,
--- NOTE | 2020-06-21 09:26 | ED.RN ---
talked with with pt permission via phone: PT recently dc from [facility], [place] was there due to breathing, diabetes and weakness/need for therapy. reports pt has o2 at home but does not wear it. he states that he can barely take care of himself right now so he wont be able to take care of her now. requesting [facility] for therapy. dr page.
--- NOTE | 2020-06-21 09:29 | ED.RN ---
also reported that injury was unwittnessed. states that he woke up and saw her leg like that and called ems. pt also does not recall what happened.
--- NOTE | 2020-06-21 11:00 | CM.ED ---
SOCIAL WORK Informant: Dr. Henson Reason for Consult: Discharge Planning/NH Placement Informed by Dr. Henson and nurse, Colleen patient's significant other reporting to be unable to care for patient at home. Patient with fractured left ankle. Met with patient and patient's significant other in room. Introduced role and reason for consult. Patient's significant other voiced concerns with being able to care for patient at home. Significant other states patient was at [facility] about one month ago. Patient in agreement with plan for custodial. Reviewed providers and patient requesting referral to [facility]. Discussed with Dr. Henson, facility will need to follow up with surgeon, Dr. Andrae Dumont. Call to [facility]. Nurse at [facility] contacted Iqra SAHA at [facility] and facilitated phone call to this worker. Iqra reports able to accept patient from ED as [facility] wa[facility] precerts due to COVID-19 pandemic. Requested clinical information faxed to [facility] at this time. Per Iqra, she will complete PASSRR. Iqra updated on need to follow up with surgeon, Dr. Andrae Dumont. Iqra requests report be called to [address] [place] [address] nurse at [phone]. Staff, patient and significant other updated. Nurse to call report. [place] to set up transport. Plan: [facility] [place] Vergara MSW, TEXTILES PRINTER
--- NOTE | 2020-06-21 12:36 | ED.RN ---
NURSE TO NURSE REPORT CALLED TO SRAVANTHI AT [facility]
== END 2020-06-21 12:36 | disposition skilled nursing facility (03) ==
PROVIDERS: Emergency Provider Emergency Medicine; PCP Internal Medicine
DX: S82.852A Displaced trimalleolar fracture of left lower leg, initial encounter for closed fracture (principal); S93.03XA Subluxation of unspecified ankle joint, initial encounter; W01.0XXA Fall on same level from slipping, tripping and stumbling without subsequent striking against object, initial encounter; X50.1XXA Overexertion from prolonged static or awkward postures, initial encounter; E11.9 Type 2 diabetes mellitus without complications; M79.7 Fibromyalgia; F41.9 Anxiety disorder, unspecified; F32.9 Major depressive disorder, single episode, unspecified; F20.9 Schizophrenia, unspecified; F17.200 Nicotine dependence, unspecified, uncomplicated
CPT/HCPCS: 27818; 71045; 73590; 73610; 80053; 85025; 87426; 96374; 99152; 99284; J7030

== ENCOUNTER 2020-06-23 22:03 | Observation (INO) | payer MEDICAID, SELFPAY ==
[2020-06-21 07:10] VITALS: BMI 28.9
[2020-06-23 22:04] VITALS: BP 115/78; PULSE 86; RESP 12; TEMP 37.6; O2SAT 83; BMI 29.9
[2020-06-23 22:07] VITALS: PULSE 86; RESP 13; O2SAT 94
[2020-06-23 22:12] VITALS: BP 115/78; PULSE 85; RESP 14; RESP 15; TEMP 37.2; O2SAT 97
[2020-06-23 22:17] VITALS: O2SAT 94
[2020-06-23 22:20] LABS: Bedside Glucose 123 mg/dL (70-110)
--- NOTE | 2020-06-23 23:00 | ED.DCSUM_ITS ---
History of Present Illness Chief Complaint: Shortness of Breath Narrative: This patient is a 50-year-old female who presents with hypoxia. He fell at home 2 days ago. She suffered a left ankle fracture. It was felt that she would be unable to care for herself at home. She had previously been to [facility] and was able to be transferred to the senior care directly from the emergency department. She was noted to develop hypoxia today. He is not normally on oxygen. She required oxygen by nasal cannula. However she does not really have any complaints. She does not feel short of breath and did not before oxygen was placed. She does complain of some back pain. No chest pain. No abdominal pain fever cough vomiting diarrhea. She complains of pain at her left leg at the site of her fracture but notes this is relatively controlled. Past Medical History - Allergies and Home Meds Allergies/Adverse Reactions: Allergies Sulfa (Sulfonamide Antibiotics) Allergy (Verified 06/23/20 22:11) Anuj Primary Care Physician: Tata Molina MD [Primary Care Provider] - Past Medical History: - - Diabetes, schizophrenia, asthma Surgical History: cholecystectomy, - - Tubal ligation. Smoking Status: Former smoker - Family History Maternal Family History: Reports: - - Maternal history was unable to be obtained because of confusion. Significant other not available to provide history. Paternal Family History: Reports: - - Paternal history was unable to be obtained because of confusion. Significant other not available to provide history. Review of Systems All systems negative except as indicated General: Denies: Fever Eyes: Denies: Visual changes - bilaterally ENT: Denies: Bilateral ear pain Cardiovascular: Denies: Chest pain Respiratory: Denies: Dyspnea, Cough Gastrointestinal: Denies: Abdominal pain, Nausea, Vomiting, Diarrhea Musculoskeletal: Reports: Extremity Pain Skin: Denies: Rash Neurological: Denies: Headache Allergy: Denies: Uticaria Physical Exam Vital Signs/Narrative: Vital Signs Temp Pulse Resp BP Pulse Ox 06/23/20 22:12 99 F 85 15 115/78 97 06/23/20 22:07 86 13 94 06/23/20 22:04 99.6 F H 86 12 115/78 83 Inital Vital Signs reviewed: Yes General: Well nourished, Well developed Head: Normocephalic Eyes: EOMI ENT: Moist mucous membranes Neck: Supple Cardiovascular: Regular rate, Regular rhythm Respiratory: No distress, - - Faint bibasilar crackles Abdomen: Soft, Nontender Extremities: - - Left lower extremity in a splint brisk capillary refill normal sensation able to wiggle toes normally Skin: Normal color Neurological: Alert Psychological: Normal affect Diagnostic/Tx/Re-eval - Medical Decision Making EKG shows normal sinus rhythm at a rate of 86. There is ST depression and T wave inversions in leads V1 and V2. Patient previously had T wave inversions although ST depression is new. Additionally she have new ST depression and T wave inversions in the inferior leads which are changed from prior as well as ST depression and inversion in lead I. Serum laboratory studies are unremarkable, normal potassium and calcium. I did add on a magnesium which is pending. 1 view chest x-ray was obtained. On my interpretation the shows possible right lower infiltrate. This was read by radiology as persistent bibasilar atelectasis. Given her recent trauma/fracture with immobilization and unexplained hypoxia a CTA of the chest was obtained. This shows no pulmonary embolism. It does show bibasilar disease although this appears improved from prior imaging. Although patient initially denied being on home oxygen on reevaluation she states she supposed to be on 2 L nasal cannula. However given her increased oxygen requirement from baseline with EKG changes I feel further evaluation warranted. Patient discussed with the hospitalist. Patient admitted. ED Disposition - Plan for ED Patient: Disposition: Acute Care [facility] Diagnosis: Acute electrocardiogram changes, Hypoxia Referrals: Tata Molina MD [Primary Care Provider] -
--- NOTE | 2020-06-23 23:01 | EKG12_ITS ---
Test Reason : SOB Blood Pressure : / mmHG Vent. Rate : 086 BPM Atrial Rate : 086 BPM P-R Int : 120 ms QRS Dur : 084 ms QT Int : 394 ms P-R-T Axes : 066 110 209 degrees QTc Int : 471 ms Normal sinus rhythm Biatrial enlargement Right axis deviation Possible pulmonary disease pattern Nonspecific ST and T wave abnormality Prolonged QT Abnormal ECG Confirmed by KATE LYNN, DAWIT ([id number]), associate editor MISAEL DHILLON ([id number]) on 06/26/2020 9:31:30 AM Referred By: JOSHUA Confirmed By:DAWIT LOVE MD
--- NOTE | 2020-06-23 23:01 | RAD_ITS ---
STUDY: X-RAY CHEST REASON FOR EXAM: Female, 50 years old. Hypoxia. TECHNIQUE: Single AP portable view of the chest. COMPARISON: 06/21/2020. FINDINGS: Persistent bibasilar atelectatic changes. There is no new mass or infiltrate. There is no demonstrated pleural abnormality. The heart appears normal in size. Normal mediastinum and rachael. Normal visualized pulmonary arteries. Normal visualized aortic arch and descending thoracic aorta. Normal visualized thoracic spine. Normal visualized ribs, clavicles, and shoulders. There is no demonstrated abnormality of the visualized soft tissue structures of the upper abdomen. RAD/Chest 1 View (Portable) IMPRESSION: Persistent bibasilar atelectasis. Electronically Signed: Adria Castro DO at 23:35 EST Tel [phone], Service support ,
[2020-06-23 23:12] VITALS: BP 126/71; PULSE 85; RESP 17; TEMP 37.2; O2SAT 98
[2020-06-23 23:40] LABS: Absolute Lymphocyte Count 1.76 X10^3/uL (0.83-4.51); Absolute Neutrophil Count 8.6 X10^3/uL (2.0-7.7); Basophil# 0.05 X10^3/uL; Basophil% 0.4 % (0-1); Eosinophil# 0.15 X10^3/uL; Eosinophils% 1.3 % (0-5); Hematocrit 45.3 % (37-47); Hemoglobin 13.4 g/dL (12.0-15.0); Lymphocyte # 1.76 X10^3/ul (4.0); Lymphocyte % 14.9 % (19-41); Mean Corp Hgb Conc 29.6 g/dL (32-36); Mean Corpuscular Hgb 26.8 pg (27.0-32.0); Mean Corpuscular Volume 90.6 fL (81-99); Mean Platelet Vol. 12.9 fl (6.2-12.0); Monocyte# 1.17 X10^3/uL; Monocyte% 9.9 % (0-10); NRBC Flagged by Analyzer 0 % (0-5); Neutrophil # 8.61 X10^3/uL (2.7-7.7); Neutrophil % 72.9 % (47-70); Platelet Count 225 K/mm3 (150-450); RBC Distribution Width CV 16.4 % (11.6-14.6); RBC Distribution Width SD 54.8 fl (35.1-43.9); White Blood Count 11.8 K/mm3 (4.4-11.0)
[2020-06-23 23:50] LABS: Prothrombin Time (Protime)PT. 12.9 SECONDS (11.7-14.9)
[2020-06-23 23:59] LABS: Anion Gap 4 (5-15); BUN 39 mg/dL (7-18); BUN/Creat Ratio 27.5 RATIO (10-20); Chloride 104 mmol/L (98-107); Creatinine, Serum 1.42 mg/dL (0.55-1.02); EST Glomerular Filtration Rate 41 mL/min (>60); Est Glom Filt Rate - Afr Amer 50 mL/min (>60); Estimated Creatinine Clearance 43.38 ml/min; Glucose 131 mg/dL (74-106); Potassium 3.7 mmol/L (3.5-5.1); Sodium Level 140 mmol/L (136-145)
[2020-06-24] VITALS (11 sets, daily range): BP systolic 111–133; BP diastolic 63–74; PULSE 66–87; RESP 14–18; TEMP 36.9–37.4; O2SAT 92–97; BMI 28.5
[2020-06-24 00:01] LABS: BNP,B-Type NATRIURETIC PEPTIDE 27.8 pg/mL (0-100)
--- NOTE | 2020-06-24 00:05 | CT_ITS ---
HISTORY: INCREASING SOB, hypoxia. recent lt ankle fracture TECHNIQUE: Helically acquired images were obtained of the chest following the intravenous administration of 100 ML of Isovue-370 Iodinated contrast. as per pulmonary angiogram protocol with 2D MIP reconstructions. A radiation dose optimization technique was used for this scan. COMPARISON: CT scan of the chest from March 28, 2020. Chest x-ray from about an hour earlier FINDINGS: # of images incl. paperwork: [id number] Basilar atelectasis and minimal basilar scarring. Basilar airspace disease is less than that of the previous studies. Minimal bronchiectasis. No effusions. Within the thoracic spinethere is a mild kyphosis with some degenerative disc disease and enthesophytes. T7 posterior hemangioma. Vertebral body height is normal. Facets are well aligned. No acute rib lesions are perceived. A right posterior T9 old incompletely healed rib fracture Heart is not enlarged. Thoracic aorta is normal. No aneurysms, stenoses, dissections, nor occlusions. No axillary or mediastinal adenopathy. No pulmonary emboli. Visualized portions of the upper abdomen are without identified acute pathology. CT/CTA Chest W/WO Contrast IMPRESSION: No pulmonary embolism, aortic aneurysm, or aortic dissection. Basilar atelectasis. Last basilar airspace disease than previously. Resolved pleural effusions. Incomplete healing to the right posterior ninth rib fracture. Individualized dose optimization techniques were used for this CT. at 0044 Reported and signed by: David Carvajal MD Electronically Signed: David Carvajal MD at 0:43 EST Tel , Service support ,
--- NOTE | 2020-06-24 01:01 | PCM.HP.STD ---
History of Present Illness Date of Admission: 06/24/20 Chief Complaint: shortness of breath, hypoxia The patient is a 50 year old F with a PMH as outlined who was admitted via the ED on 06/24/2020 from her SNF o/a of hypoxia. Patient fell at home 2 days ago and sustained a left ankle fracture. She was sent straight to her SNF from the ED when she presented 2 days ago. She was noted to be hypoxic in the SNF today, and with sats at 83%; she was therefore brought to the ED. Patient is supposed to be on 2L of oxygen chronically, but has not been wearing it. She had no other complaints, and review of systems was otherwise negative. She was saturating at 83% on admission, and required 3-4L of oxygen for sats to get to 94%. She denied any chest pain, long distance travel, any palpitations or dizziness. Vitals were otherwise stable. Chemistry showed sodium of 140, Cr of 1.42 and bicarb of 32; BNP was 27.8 and initial troponin was negative. CBC showed wbc of 11.8,. and platelets of 225, cbc was otherwise unremarkable. CXR showed persistent bibasilar atelectasis, and CTA showed no PE, aortic aneurysm or aortic dissection, with basilar atelectasis, resolved pleural effusions and incomplete healing to the right posterior ninth rib fracture. EKG done showed ST depression and T wave inversions in inferior lead; ST depression is new. ED decided to admit him based on new EKG changes. [] Past Medical History Past Medical History (Chronic Problems): Chronic Problems (Last Reviewed 05/06/20 @ 09:[address] 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 Maynor Luciano MD) Fibromyalgia M79.7 Schizophrenia F20.9 Allergies Sulfa (Sulfonamide Antibiotics) Allergy (Verified 06/23/20 22:11) Hives Home Medications: Ambulatory Orders Medication Instructions Recorded Albuterol Inhaler [Ventolin Hfa] 2 puff INHALATION Q4H PRN PRN 06/10/17 Oxybutynin Chloride [Ditropan Xl] 5 mg PO BID 06/10/17 Duloxetine Hcl [Cymbalta] 30 mg PO BID 10/24/19 Levetiracetam [Keppra] 500 mg PO BID 10/24/19 Prazosin HCl [Minipress] 2 mg PO QHS 10/24/19 Furosemide [Lasix] 40 mg PO DAILY 04/18/20 Insulin Lispro [Humalog] 16 unit SQ TIDCM 04/18/20 Ergocalciferol [Vitamin D] 50,000 unit PO Q7D #2 cap 04/21/20 Risperidone 0.25 mg PO BID #0 04/21/20 Insulin Glargine [Lantus SoloStar 20 units SC BID 06/21/20 Pen] Acetaminophen [Tylenol] 500 mg PO TID 06/23/20 Docusate Sodium [Colace] 100 mg PO BID 06/23/20 Lactobacillus Rhamnosus GG 1 ea PO DAILY 06/23/20 [Culturelle] Amoxicillin/Potassium Clav 1 ea PO Q12H 5 Days #10 tab 06/24/20 [Amox-Clav 875-125 mg Tablet] Oxycodone HCl 5 mg PO Q4H PRN PRN 7 Days #10 cap 06/24/20 Pregabalin [Lyrica] 100 mg PO BID #10 cap 06/24/20 Surgical History: cholecystectomy, - - Tubal ligation. 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 Significant other not available to provide history. Paternal History Items: - - Paternal history was unable to be obtained because of confusion. Significant other not available to provide history. Review of Systems Constitutional: Denies: Chills, Fever, Malaise, Weakness, Weight Change Eyes: Denies: Blurred vision HEENT: Denies: Head Aches, Sinus Congestion, Sinus Drainage Cardiovascular: Denies: Chest Pain, Chest Pressure, Heaviness, Light Headedness, Orthopnea, Palpitations, Syncope Respiratory: Denies: Cough, Shortness of Breath, Shortness of breath at rest, Shortness of breath upon exertion, Sputum production Gastrointestinal: Denies: Abdominal Pain, Nausea, Vomiting Genitourinary: Denies: Dysuria Musculoskeletal: Denies: Joint Pain, Joint Tenderness Skin: Denies: Rash, Wounds Neurological: Denies: Numbness, Tingling, Focal weakness Psychiatric: Denies: Anxiety, Depression, Homicidal Ideations, Suicidal Ideations Hematologic/ Lymphatic: Denies: Easy Bruising, Easy Bleeding VTE Information - Inpt Only VTE Present on Admission: No VTE Pharm Prophylaxis ordered?: Yes Patient Problems: Active and Suspected Problems (Last Reviewed 05/06/20 @ 09:[address] Maynor Luciano MD) Acute electrocardiogram changes (Acute) Hypoxia (Acute) secondary to COPD with altered mental status Fracture tibia/fibula (Acute) left-recent (06/21/20) Altered level of consciousness (Acute) probably secondary to medication (Baclofen,Lyrica) - Physical Exam Vitals/I&O's: Vital Signs Temp Pulse Resp BP Pulse Ox 98.9 F 85 18 129/63 H 95 06/24/20 00:00 06/24/20 00:00 06/24/20 00:12 06/24/20 00:00 06/24/20 00:00 Oxygen Flow Rate (L/min) 3 Oxygen Delivery Method Nasal Cannula Weight: 185 lb 3.013 oz Body Mass Index (BMI) 29.9 Finger Stick Blood Glucose 123 General: Alert, Oriented x3, Cooperative, Lethargic HEENT: Atraumatic, PERRLA, EOMI, Normocephalic Oral: Dry Mucosa Neck: Supple, No JVD, Negative Carotid Bruits Lungs: - - diminished breath sounds bibasally, no wheezes or crackles. on 3L of oxygen Cardiovascular: Regular rate, Regular Rhythm, Normal S1, Normal S2, No murmurs Abdomen: Bowel Sounds Present, Soft, Non Tender, Non-Distended, No Hepato-splenomegaly Extremities: No clubbing, No cyanosis, No edema, Capillary Refill Less than 3 Seconds Skin: No rashes, No breakdown Musculoskeletal: No Tenderness to Palpation of Joints or Extremities Lymphatic: No Cervical, Supraclavicular, or Inguinal Adenopathy Neurological: Cranial nerves II-XII grossly intact, Neuro grossly intact, Motor Exam 5/5 strength throughout Psych/Mental Status: Normal Affect, Appropriate, Alert and oriented to time, place, person, mood and affect Laboratory Results 06/23/20 22:15: POC Glucose 123 H 06/23/20 23:10: WBC 11.8 H, RBC 5.00, Hgb 13.4, Hct 45.3, MCV 90.6, MCH 26.8 L, MCHC 29.6 L D, RDW Std Deviation 54.8 H, RDW Coeff of Krista 16.4 H, Plt Count 225, MPV 12.9 H, Immature Gran % (Auto) 0.600, Neut % (Auto) 72.9 H, Lymph % (Auto) 14.9 L, Kings % (Auto) 9.9, Eos % (Auto) 1.3, Baso % (Auto) 0.4, Absolute Neuts (auto) 8.6 H, Absolute Lymphs (auto) 1.76, Nucleated RBC % 0 06/23/20 23:10: PT 12.9, INR 1.0 06/23/20 23:10: Sodium 140, Potassium 3.7, Chloride 104, Carbon Dioxide 32.0, Anion Gap 4 L, BUN 39 H, Creatinine 1.42 H, Estim Creat Clear Calc 43.38, Est GFR (MDRD) Af Amer 50 L, Est GFR (MDRD) Non-Af 41 L, BUN/Creatinine Ratio 27.5 H, Glucose 131 H, Calcium 9.0, Troponin I < 0.015 06/23/20 23:10: B-Natriuretic Peptide 27.8 Diagnostic Data Chest X-Ray 06/23/20 23:01 IMPRESSION: Persistent bibasilar atelectasis. Electronically Signed: Adria Castro DO at 23:35 EST Tel [phone], Service support , Chest CTA 06/24/20 00:05 IMPRESSION: No pulmonary embolism, aortic aneurysm, or aortic dissection. Basilar atelectasis. Last basilar airspace disease than previously. Resolved pleural effusions. Incomplete healing to the right posterior ninth rib fracture. Individualized dose optimization techniques were used for this CT. at 0044 Reported and signed by: David Carvajal MD Electronically Signed: David Carvajal MD at 0:43 EST Tel , Service support , Assessment/Plan All Active Problems (Last Reviewed 05/06/20 @ 09:[address] Maynor Luciano MD) Acute electrocardiogram changes (Acute) Hypoxia (Acute) Fracture tibia/fibula (Acute) Hyperglycemia (Acute) Dehydration (Acute) Leukocytosis (Acute) Altered level of consciousness (Acute) Hyperglycemia due to type 2 diabetes mellitus (Acute) Hypoxemia (Acute) MICHELE (acute kidney injury) (Acute) HHNC (hyperglycemic hyperosmolar nonketotic coma) (Acute) 50 y/o admitted with a complaint of hypoxia #Chronic hypoxic respiratory failure with concomitant hypoxia due to noncompliance she was supposed to be on oxygen but hadn't been wearing it. Hypoxia resolved after she wore her oxygen. breathing treatment with bronchodilators titrate oxygen to maintain sats >90% #Abnormal EKG changes EKG shows some st depressions and t wave inversions in inferior leads. The st depressions are new. she has no chest pain will get 2D echo. repeat EKG #Diabetes mellitus on 20 units BID insulin sliding scale accuchecks ACHS #Seizure disorder: on keppra #Fibromyalgia: on pregabaline and baclofen #Schizophrenia: on risperdal DVT prophylaxis: lovenox Code status: full code. Patient counseled extensively about different types of CODE STATUS including full code, DNR CCA and DNR CCA. Patient elects to be full code. Total [id number] time 17 minutes. OBSV E&M: 03799 Initial observation care L3 Procedures: 26983 Advncd Care Plan 30 Min
[2020-06-24 01:09] LABS: Magnesium 2.6 mg/dL (1.6-2.6)
--- NOTE | 2020-06-24 04:22 | PCS.PANDOC ---
PANDEMIC DOCUMENTATION INITIATED: Date: 06/24/2020 Time: 6280
[2020-06-24 05:54] LABS: Absolute Lymphocyte Count 1.73 X10^3/uL (0.83-4.51); Absolute Neutrophil Count 9.6 X10^3/uL (2.0-7.7); Basophil# 0.04 X10^3/uL; Basophil% 0.3 % (0-1); Eosinophils% 1.6 % (0-5); Hematocrit 42.9 % (37-47); Hemoglobin 12.5 g/dL (12.0-15.0); Lymphocyte # 1.73 X10^3/ul (4.0); Lymphocyte % 13.4 % (19-41); Mean Corp Hgb Conc 29.1 g/dL (32-36); Mean Corpuscular Hgb 26.6 pg (27.0-32.0); Mean Corpuscular Volume 91.3 fL (81-99); Mean Platelet Vol. 12.8 fl (6.2-12.0); Monocyte# 1.28 X10^3/uL; Monocyte% 9.9 % (0-10); NRBC Flagged by Analyzer 0 % (0-5); Neutrophil # 9.58 X10^3/uL (2.7-7.7); Neutrophil % 74.3 % (47-70); Platelet Count 208 K/mm3 (150-450); RBC Distribution Width CV 16.5 % (11.6-14.6); White Blood Count 12.9 K/mm3 (4.4-11.0)
--- NOTE | 2020-06-24 05:55 | ECHOCS_ITS ---
Reason For Study: ABNORMAL EKG Procedure This was a 2D Doppler, Color Flow transthoracic echocardiogram. The study was technically difficult. Contrast injection was performed. Exam performed portable in patient room. Left Ventricle Normal LV size. Left ventricular systolic function is normal. The estimated ejection fraction is 60 %. No evidence for diastolic dysfunction. No regional wall motion abnormalities noted. Right Ventricle Normal RV size. Normal systolic function. Atria Normal left atrium. Normal right atrium. No doppler evidence for ASD. Mitral Valve There is no mitral annular calcification. Normal mitral valve. Trivial mitral valve insufficiency. Tricuspid Valve Normal tricuspid valve. Trivial tricuspid valve insufficiency. Unable to estimate RV systolic pressure/pulmonary artery pressure due to technically difficult study. Aortic Valve Trisinus/trileaflet aortic valve. Mild focal aortic valve thickening. Pulmonic Valve The pulmonic valve is not well visualized. Great Vessels Normal sized aortic root. Pericardium/Pleural No pericardial effusion. Medication Diluted definity 4ml given slow IV push to enhance endocardial definition. MMode/2D Measurements & Calculations LVIDd: 5.0 cm IVSd: 0.99 cm Ao root diam: 3.1 cm LVIDs: 3.2 cm LVPWd: 0.94 cm RVDd: 3.8 cm FS: 36.2 % LAV(MOD-bp): 41.7 ml LVAd ap4: 28.0 cm2 SV(MOD-sp4): 59.4 ml LAV(MOD-bp) Indexed: 22.0 ml/m2 EDV(MOD-sp4): 87.9 ml LAV(MOD-sp2): 40.4 ml EDV(sp4-el): 89.1 ml LAV(MOD-sp4): 43.3 ml LVAs ap4: 14.5 cm2 ESV(MOD-sp4): 28.5 ml ESV(sp4-el): 28.2 ml EF(MOD-sp4): 67.6 % EF(sp4-el): 68.4 % SV(sp4-el): 60.9 ml LA A4 area: 17.2 cm2 LA dimension(2D): 2.6 cm RA A4 area: 16.1 cm2 Time Measurements MV dec time: 0.28 sec Doppler Measurements & Calculations MV E max aryan: 100.9 cm/sec Lat Peak E' Aryan: 12.2 cm/sec Med Peak E' Aryan: 8.3 cm/sec MV A max aryan: 72.9 cm/sec E/E' lat: 8.3 E/E' med: 12.2 MV E/A: 1.4 Ao V2 max: 143.3 cm/sec LV V1 max: 108.1 cm/sec PA V2 max: 100.9 cm/sec Ao max P.2 mmHg LV V1 max P.7 mmHg Interpretation Summary The study was technically difficult. Contrast injection was performed. Left ventricular systolic function is normal. The estimated ejection fraction is 60 %. Trivial mitral valve insufficiency. Trivial tricuspid valve insufficiency. Mild focal aortic valve thickening. Unable to estimate RV systolic pressure/pulmonary artery pressure due to technically difficult study. No evidence for diastolic dysfunction. Ordering Physician: Kelly Desir Referring Physician: FAWN TERRELL Performed By: Charisse Castle RDCS
[2020-06-24] MEDS: Acetaminophen 500 MG Tablet PO ×2 (06:19→14:02)
[2020-06-24] MEDS: Pregabalin 50 MG Capsule 200 MG PO (06:20)
[2020-06-24] MEDS: Baclofen 10 MG Tablet PO (06:20)
[2020-06-24 06:40] LABS: Bedside Glucose 137 mg/dL (70-110)
[2020-06-24 06:51] LABS: Anion Gap 3 (5-15); BUN 35 mg/dL (7-18); BUN/Creat Ratio 29.4 RATIO (10-20); Calcium,Total 8.7 mg/dL (8.5-10.1); Chloride 106 mmol/L (98-107); Creatinine, Serum 1.19 mg/dL (0.55-1.02); EST Glomerular Filtration Rate 51 mL/min (>60); Est Glom Filt Rate - Afr Amer 61 mL/min (>60); Estimated Creatinine Clearance 51.77 ml/min; Glucose 120 mg/dL (74-106); Potassium 3.8 mmol/L (3.5-5.1); Sodium Level 139 mmol/L (136-145)
--- NOTE | 2020-06-24 08:55 | CASEMGMT ---
Per [employer], pt's order is for 2L w/ exertion at this time. Pt has been on home oxygen since March when she was set up with 3L continuous and 4L w/ exertion thru [employer] by this RN CM. Dr. Villalpando updated on all at this time. [facility]
--- NOTE | 2020-06-24 09:26 | CASEMGMT ---
Patient is from [facility] ([facility]). She was recently sent there from the ED due to an ankle fracture. Patient came in with Hypoxia and confusion. Per physician she was not accurately answering questions. APRIL called patient's significant other, Philip and confirmed the plan is for patient to return to [facility]. He said that is the plan. He denied the need for a list of local nursing facilities. APRIL called [facility] and left a message for Britt letting her know that patient will likely be returning today. Elisabeth FOSTER MSW
[2020-06-24] MEDS: Docusate Sodium 100 MG Capsule PO (09:46)
[2020-06-24] MEDS: Loratadine 10 MG Tablet PO (09:46)
[2020-06-24] MEDS: DULoxetine Hcl 30 MG Capsule PO (09:46)
[2020-06-24] MEDS: Furosemide 40 MG Tablet PO (09:47)
[2020-06-24] MEDS: levETIRAcetam 500 MG Tablet PO (09:47)
[2020-06-24] MEDS: Enoxaparin 40 MG/0.4 ML Syringe SC (09:47)
[2020-06-24] MEDS: Tolterodine Tartrate 2 MG CAP.SA PO (09:47)
[2020-06-24] MEDS: RisperiDONE 0.5 MG Tablet 0.25 MG PO (09:48)
[2020-06-24] MEDS: Insulin Lispro 100 UNIT/ML INSULN.PEN 16 UNIT SC ×2 (09:51→12:40)
[2020-06-24 12:36] LABS: Bedside Glucose 126 mg/dL (70-110)
--- NOTE | 2020-06-24 13:03 | CASEMGMT ---
Addendum entered by Elisabeth Choi 06/24/20 13:14: Britt from [facility] called APRIL and confirmed she got SW's messages. Elisabeth DANIEL Original Note: SW faxed d/c orders and negative COVID test to [facility]. APRIL did write on fax face sheet that patient will be returning later after Ortho sees her. APRIL also called and left a message for Britt in admissions letting her know the same. Plan: d/c back to [facility] under skilled level of care. Elisabeth FOSTER MSW
--- NOTE | 2020-06-24 15:19 | PCM.TXEXTCAR ---
- Diet 06/24/20 02:10 Diet: Cardiac: Calorie-Controlled Food consistency:: Regular Liquid Consistency:: Regular/Thin How many daily calories?: 1800 calorie - Routine Orders/Code Status O2 Liters per Minute: 3-4 liters O2 Frequency: Continuous Keep PO Greater than or Equal to (%): 90 Routine Lab Work: - - Fingerstick blood sugars before meals nightly, coverage with Humalog subcu per protocol: Blood sugar 200-250: 5 units subcu, blood sugar 251-300: 8 units subcu, blood sugar 301-3 50: 12 units subcu Code Status: Full Code - Therapies Weight Bearing: Non weight bearing - left leg Physical Therapy: Eval and Treat Occupational Therapy: Eval and Treat - Problem/Diagnosis (1) Fracture tibia/fibula Status: Acute Comment: left-recent (06/21/20) (2) Hypoxia Status: Acute Comment: secondary to COPD with altered mental status (3) Polyneuropathy due to type 2 diabetes mellitus Status: Chronic (4) Type II diabetes mellitus Status: Chronic (5) Altered level of consciousness Status: Acute Comment: probably secondary to medication (Baclofen,Lyrica) (6) Schizophrenia Status: Chronic (7) Depression Status: Chronic - Allergies/Procedures Done in Hospital Allergies/Adverse Reactions: Allergies Sulfa (Sulfonamide Antibiotics) Allergy (Verified 06/23/20 22:11) Hives Procedures: 2-D Echocardiogram, - - CTA of the chest - Type of Care/Length of Stay Estimated LOS: Convalescent Care Less Than 30 days Type of Care Needed: Skilled Rehab Potential: Good Prognosis: Good - Additional Orders/Day of Discharge Additional Orders: Patient will undergo surgical repair of the left tib-fib fracture on 06/27/[address] Andrae Dumont at [facility] H&P will serve as current which was dated: 06/24/20 Day of Discharge: 06/24/20 - Dietary and Speech Recommendations Dietitian Recommendations/Changes: continue cardiac, 1800 calorie controlled diet. - Follow Up Care Primary Care Physician: Tata Molina MD [Primary Care Provider] -
--- NOTE | 2020-06-24 16:36 | PCM.CONS.GEN ---
Reason for Consult Date of Consultation: 06/24/20 History of Present Illness: The patient is a 50 year old female with multiple medical problems that sustained a left ankle fracture dislocation on June 21, 2019. She underwent closed reduction and splinting by the emergency room physician. She was noted to have a slight abrasion over the medial ankle. He was confident this was not an open fracture. She was sent to an extended care facility. She was brought in last night with concerns for low oxygen level and decreased mental state. She has been evaluated and treated by the hospitalist service. Patient was scheduled to see me in the office regarding her ankle fracture. [] Past Medical History Past Medical History (Chronic Problems): Chronic Problems (Last Reviewed 05/06/20 @ 09:[address] 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 Maynor Luciano MD) Fibromyalgia M79.7 Schizophrenia F20.9 Allergies Sulfa (Sulfonamide Antibiotics) Allergy (Verified 06/23/20 22:11) Hives Home Medications: Ambulatory Orders Medication Instructions Recorded Albuterol Inhaler [Ventolin Hfa] 2 puff INHALATION Q4H PRN PRN 06/10/17 Oxybutynin Chloride [Ditropan Xl] 5 mg PO BID 06/10/17 Duloxetine Hcl [Cymbalta] 30 mg PO BID 10/24/19 Levetiracetam [Keppra] 500 mg PO BID 10/24/19 Prazosin HCl [Minipress] 2 mg PO QHS 10/24/19 Furosemide [Lasix] 40 mg PO DAILY 04/18/20 Insulin Lispro [Humalog] 16 unit SQ TIDCM 04/18/20 Ergocalciferol [Vitamin D] 50,000 unit PO Q7D #2 cap 04/21/20 Risperidone 0.25 mg PO BID #0 04/21/20 Insulin Glargine [Lantus SoloStar 20 units SC BID 06/21/20 Pen] Acetaminophen [Tylenol] 500 mg PO TID 06/23/20 Docusate Sodium [Colace] 100 mg PO BID 06/23/20 Lactobacillus Rhamnosus GG 1 ea PO DAILY 06/23/20 [Culturelle] Amoxicillin/Potassium Clav 1 ea PO Q12H 5 Days #10 tab 06/24/20 [Amox-Clav 875-125 mg Tablet] Oxycodone HCl 5 mg PO Q4H PRN PRN 7 Days #10 cap 06/24/20 Pregabalin [Lyrica] 100 mg PO BID #10 cap 06/24/20 Surgical History: cholecystectomy, - - Tubal ligation. Psychiatric History: Anxiety, Depression BAKER HEAD History: No pertinent BAKER HEAD history Lives: Retirement Smoking Status: Former smoker Tobacco Use: Non-smoker Alcohol: None Drugs: None - *Family History Maternal History Items: - - Maternal history was unable to be obtained because of confusion. Significant other not available to provide history. Paternal History Items: - - Paternal history was unable to be obtained because of confusion. Significant other not available to provide history. Patient Problems: Active and Suspected Problems (Last Reviewed 05/06/20 @ 09:[address] Maynor Luciano MD) Acute electrocardiogram changes (Acute) Hypoxia (Acute) secondary to COPD with altered mental status Fracture tibia/fibula (Acute) left-recent (06/21/20) Altered level of consciousness (Acute) probably secondary to medication (Baclofen,Lyrica) Objective: Left ankle splints and bandages were removed. She does have an abrasion over the medial ankle. No obvious exposed bone. No foul odor. No significant expressible drainage. There is significant bruising and swelling about the medial ankle. There is swelling about the lateral ankle. No significant fracture blisters at this point. There is an area of darkened skin over the medial ankle. Aquacell and 4 x 4's applied. Pulses are intact at the foot. Capillary refill is normal at the toes. Please from June 21, 2020 showed a ankle fracture dislocation trimalleolar variant. Postreduction x-rays showed much improvement in alignment. - Physical Exam Vitals/I&O's: Vital Signs Temp Pulse Resp BP Pulse Ox 98.4 F 83 14 125/74 H 93 06/24/20 14:04 06/24/20 14:04 06/24/20 14:04 06/24/20 14:04 06/24/20 14:04 Oxygen Flow Rate (L/min) 3 Oxygen Delivery Method Nasal Cannula Weight: 80.1 kg Body Mass Index (BMI) 28.5 Finger Stick Blood Glucose 123 Intake and Output for Last 24 Hours 06/22/20 06/23/20 06/24/20 23:59 23:59 23:59 Intake Total 680 / 680 Output Total 0 / 0 Balance 680 / 680 Microbiology Past 72 Hours 06/24/20 10:55 Mucosa - Nose SARS-CoV-2 Antigen (Rapid) - Final Laboratory Results 06/23/20 22:15: POC Glucose 123 H 06/23/20 23:10: WBC 11.8 H, RBC 5.00, Hgb 13.4, Hct 45.3, MCV 90.6, MCH 26.8 L, MCHC 29.6 L D, RDW Std Deviation 54.8 H, RDW Coeff of Krista 16.4 H, Plt Count 225, MPV 12.9 H, Immature Gran % (Auto) 0.600, Neut % (Auto) 72.9 H, Lymph % (Auto) 14.9 L, [place] % (Auto) 9.9, Eos % (Auto) 1.3, Baso % (Auto) 0.4, Absolute Neuts (auto) 8.6 H, Absolute Lymphs (auto) 1.76, Nucleated RBC % 0 06/23/20 23:10: PT 12.9, INR 1.0 06/23/20 23:10: Sodium 140, Potassium 3.7, Chloride 104, Carbon Dioxide 32.0, Anion Gap 4 L, BUN 39 H, Creatinine 1.42 H, Estim Creat Clear Calc 43.38, Est GFR (MDRD) Af Amer 50 L, Est GFR (MDRD) Non-Af 41 L, BUN/Creatinine Ratio 27.5 H, Glucose 131 H, Calcium 9.0, Troponin I < 0.015 06/23/20 23:10: B-Natriuretic Peptide 27.8 06/23/20 23:10: Magnesium 2.6 06/24/20 03:12: Troponin I < 0.015 06/24/20 05:20: WBC 12.9 H, RBC 4.70, Hgb 12.5, Hct 42.9, MCV 91.3, MCH 26.6 L, MCHC 29.1 L, RDW Std Deviation 55.0 H, RDW Coeff of Krista 16.5 H, Plt Count 208, MPV 12.8 H, Immature Gran % (Auto) 0.500, Neut % (Auto) 74.3 H, Lymph % (Auto) 13.4 L, [place] % (Auto) 9.9, Eos % (Auto) 1.6, Baso % (Auto) 0.3, Absolute Neuts (auto) 9.6 H, Absolute Lymphs (auto) 1.73, Nucleated RBC % 0 06/24/20 05:20: Sodium 139, Potassium 3.8, Chloride 106, Carbon Dioxide 30.0, Anion Gap 3 L, BUN 35 H, Creatinine 1.19 H, Estim Creat Clear Calc 51.77, Est GFR (MDRD) Af Amer 61, Est GFR (MDRD) Non-Af 51 L, BUN/Creatinine Ratio 29.4 H, Glucose 120 H, Calcium 8.7, Troponin I < 0.015 06/24/20 06:09: POC Glucose 137 H 06/24/20 12:29: POC Glucose 126 H Current Medications Acetaminophen (Acetaminophen 500 Mg Tablet) 500 mg PO TID REPLACED BY [facility] Last Admin: 06/24/20 14:02 Dose: 500 mg Documented by: Acetaminophen (Acetaminophen 325 Mg Tablet) 650 mg PO Q4H PRN PRN PRN Reason: Pain 1-10 or Fever Albuterol Sulfate (Albuterol 2.5 Mg/3 Ml Vial.Neb.) 2.5 mg INHALATION Q4H PRN PRN PRN Reason: SOB &/OR WHEEZING Docusate Sodium (Docusate Sodium 100 Mg Capsule) 100 mg PO BID REPLACED BY [facility] Last Admin: 06/24/20 09:46 Dose: 100 mg Documented by: Doxazosin Mesylate (Doxazosin 1 Mg Tablet) 2 mg PO QHS REPLACED BY [facility] Duloxetine HCl (Duloxetine Hcl 30 Mg Capsule) 30 mg PO BID REPLACED BY [facility] Last Admin: 06/24/20 09:46 Dose: 30 mg Documented by: Enoxaparin Sodium (Enoxaparin 40 Mg/0.4 Ml Syringe) 40 mg SC DAILY REPLACED BY [facility] Last Admin: 06/24/20 09:47 Dose: 40 mg Documented by: Ergocalciferol (Ergocalciferol 50,000 Unit Capsule) 50,000 unit PO Q7D REPLACED BY [facility] Furosemide (Furosemide 40 Mg Tablet) 40 mg PO DAILY REPLACED BY [facility] Last Admin: 06/24/20 09:47 Dose: 40 mg Documented by: Insulin Glargine (Insulin Glargine 100 Units/Ml Pen) 20 units SC BID REPLACED BY [facility] Last Admin: 06/24/20 09:52 Dose: 20 unit Documented by: Insulin Human Lispro (Insulin Lispro 100 Unit/Ml Insuln.Pen) 16 unit SC TIDAC REPLACED BY [facility] Last Admin: 06/24/20 12:40 Dose: 16 units Documented by: Insulin Human Lispro (Insulin Lispro 100 Unit/Ml Insuln.Pen) 0 unit SC ACHS REPLACED BY [facility]; Protocol Last Admin: 06/24/20 12:30 Dose: Not Given Documented by: Lactobacillus Acidophilus (Lactobacillus Acidophilus) 1 tablet PO DAILY REPLACED BY [facility] Last Admin: 06/24/20 09:46 Dose: 1 tablet Documented by: Levetiracetam (Levetiracetam 500 Mg Tablet) 500 mg PO BID REPLACED BY [facility] Last Admin: 06/24/20 09:47 Dose: 500 mg Documented by: Loratadine (Loratadine 10 Mg Tablet) 10 mg PO DAILY REPLACED BY [facility] Last Admin: 06/24/20 09:46 Dose: 10 mg Documented by: Nitroglycerin (Nitroglycerin (Inpatient Use) 0.4 Mg Tab.Subl) 0.4 mg SUBLINGUAL Q5M PRN PRN Reason: CARDIAC/CHEST PAIN Ondansetron HCl (Ondansetron 4 Mg/2 Ml Vial) 4 mg IV Q8H PRN PRN PRN Reason: NAUSEA/VOMITING Oxycodone HCl (Oxycodone 5 Mg Tablet) 2.5 - 5 mg PO Q4H PRN PRN PRN Reason: Pain Score 1-10 Pregabalin (Pregabalin 50 Mg Capsule) 200 mg PO BID REPLACED BY [facility] Risperidone (Risperidone 0.5 Mg Tablet) 0.25 mg PO BID REPLACED BY [facility] Last Admin: 06/24/20 09:48 Dose: 0.25 mg Documented by: Sodium Chloride (0.9% Saline Lock 10 Ml Syringe) 10 - 40 ml IV UD PRN PRN Reason: SALINE FLUSH Tolterodine Tartrate (Tolterodine Tartrate 2 Mg Cap.Sa) 2 mg PO DAILY REPLACED BY [facility] Last Admin: 06/24/20 09:47 Dose: 2 mg Documented by: Assessment/Plan All Active Problems (Last Reviewed 05/06/20 @ 09:[address] Maynor Luciano MD) Acute electrocardiogram changes (Acute) Hypoxia (Acute) Fracture tibia/fibula (Acute) Hyperglycemia (Acute) Dehydration (Acute) Leukocytosis (Acute) Altered level of consciousness (Acute) Hyperglycemia due to type 2 diabetes mellitus (Acute) Hypoxemia (Acute) MICHELE (acute kidney injury) (Acute) HHNC (hyperglycemic hyperosmolar nonketotic coma) (Acute) Right ankle trimalleolar fracture dislocation with multiple medical problems including diabetes, tobacco use, pulmonary disease requiring oxygen, neuropathy etc. surgery is recommended for this fracture pattern. due to current skin abrasion, possible area of necrosis, I am recommending local wound care and close monitoring. I explained the risk of surgery which could include infection, and loss of limb. I think giving the skin more time to recover from the injury and swelling would be helpful. I would like her evaluated at the wound center. Also evaluated by Dr Ray Dumont. Arrange follow-up for that. I am canceling her surgery that was proposed for Tuesday based on her current skin condition over the medial ankle. Continue nonweightbearing on the left lower extremity. New ice and elevation left lower extremity. Her splint can carefully removed for skin care and reapplied.
--- NOTE | 2020-06-24 16:40 | NURSING ---
arrived splint removed and redressed by
[2020-06-24 17:20] LABS: Bedside Glucose 73 mg/dL (70-110)
--- NOTE | 2020-06-24 18:29 | NURSING ---
report called howard rodríguez rn at [facility]
--- NOTE | 2020-06-25 14:35 | PCM.DC.SUM ---
Discharge Date and Diagnosis - Problem List Patient Problems: Active and Suspected Problems (Last Reviewed 05/06/20 @ 09:[address] Maynor Luciano MD) Acute electrocardiogram changes (Acute) Hypoxia (Acute) secondary to COPD with altered mental status Fracture tibia/fibula (Acute) left-recent (06/21/20) Altered level of consciousness (Acute) probably secondary to medication (Baclofen,Lyrica) Date of Admission: 06/24/20 Date of Discharge: 06/24/20 - Primary Discharge Diagnosis Acute Problems: Active Problems (Last Reviewed 05/06/20 @ 09:[address] Maynor Luciano MD) #1 altered mental status secondary to medication #2 chronic hypoxic respiratory failure secondary to COPD #3 recent left ankle fracture with dislocation-06/21/2019 #4 schizophrenia #5 type 2 diabetes #6 neuropathy secondary to type 2 diabetes - Secondary Discharge Diagnosis Chronic Problems: Chronic Problems (Last Reviewed 05/06/20 @ 09:[address] 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 On examination in the emergency room, patient did not complain of any dyspnea or chest discomfort. Work-up in the emergency room included an EKG which showed a normal sinus rhythm at 86, laboratory studies were unremarkable, chest x-ray showed a possible right lower lobe infiltrate and a CTA of the chest was obtained which showed no evidence of pulmonary embolism and showed bibasilar disease improved from prior imaging in March 2020. Patient was a poor informant due to a history of schizophrenia. Patient was placed in observation status on PCU, she remained stable on her outpatient oxygen setting of 3 L. It was felt that the patient's mental status change was probably secondary to medications at her nursing facility (Lyrica, baclofen) and at the time of discharge, these medications were adjusted or stopped. Patient was seen in the hospital by Dr. Dumont who had planned to operate on the patient on 06/27/2020, and looking at the patient's skin over the area of her fracture site of the left leg, he was reluctant to go ahead with surgery on that date and instead referred the patient to wound care as an outpatient so that she could be prepared for a good surgical outcome. On 06/24/2020, patient was seen and examined: On examination she appeared in good health and spirits, she does not appear to be in any distress. Vital signs as documented. Skin warm and dry and without overt rashes, patient's left lower leg was enclosed in a splint with surgical dressing. Neck without JVD, thyroid appears normal, trachea is midline, neck is supple. Lungs clear, normal air movement was noted. Heart exam notable for regular rhythm, normal sounds and absence of murmurs, rubs or gallops. Abdomen unremarkable and without evidence of organomegaly, masses, or abdominal aortic enlargement, bowel sounds are present in all 4 quadrants, no abdominal tenderness was noted. Extremities nonedematous, no cyanosis was noted, no clubbing was noted. A splint was present over the patient's left lower leg. Neuro: Cranial nerves II through XII are grossly intact, no focal motor deficits were noted, sensation to light touch and pinprick is intact, motor exam 5/5 throughout. Psych: Patient is alert and oriented x3, she answered simple questions appropriately On 06/24/2020, patient appears stable for discharge back to her extended care facility. Patient Problems: Active and Suspected Problems (Last Reviewed 05/06/20 @ 09:[address] Maynor Luciano MD) Acute electrocardiogram changes (Acute) Hypoxia (Acute) secondary to COPD with altered mental status Fracture tibia/fibula (Acute) left-recent (06/21/20) Altered level of consciousness (Acute) probably secondary to medication (Baclofen,Lyrica) - Physical Exam Vitals/I&O's: Vital Signs Temp Pulse Resp BP Pulse Ox 98.4 F 82 17 130/71 H 97 06/24/20 20:00 06/24/20 20:00 06/24/20 20:00 06/24/20 20:00 06/24/20 20:00 Oxygen Flow Rate (L/min) 3 Oxygen Delivery Method Nasal Cannula Weight: 80.1 kg Body Mass Index (BMI) 28.5 Finger Stick Blood Glucose 123 Intake and Output for Last 24 Hours 06/23/20 06/24/20 06/25/20 23:59 23:59 23:59 Intake Total 920 / 920 Output Total 0 / 0 Balance 920 / 920 Microbiology Past 72 Hours 06/24/20 10:55 Mucosa - Nose SARS-CoV-2 Antigen (Rapid) - Final Laboratory Results 06/24/20 17:10: POC Glucose 73 Home Medications: Medications to take at Discharge Albuterol Inhaler [Ventolin Hfa] 2 puff INHALATION Q4H PRN PRN 06/10/17 Oxybutynin Chloride [Ditropan Xl] 5 mg PO BID 06/10/17 Duloxetine Hcl [Cymbalta] 30 mg PO BID 10/24/19 Levetiracetam [Keppra] 500 mg PO BID 10/24/19 Prazosin HCl [Minipress] 2 mg PO QHS 10/24/19 Furosemide [Lasix] 40 mg PO DAILY 04/18/20 Insulin Lispro [Humalog] 16 unit SQ TIDCM 04/18/20 Ergocalciferol [Vitamin D] 50,000 unit PO Q7D #2 cap 04/21/20 Risperidone 0.25 mg PO BID #0 04/21/20 Insulin Glargine [Lantus SoloStar Pen] 20 units SC BID 06/21/20 Acetaminophen [Tylenol] 500 mg PO TID 06/23/20 Docusate Sodium [Colace] 100 mg PO BID 06/23/20 Lactobacillus Rhamnosus GG [Culturelle] 1 ea PO DAILY 06/23/20 Amoxicillin/Potassium Clav [Amox-Clav 875-125 mg Tablet] 1 ea PO Q12H 5 Days #10 tab 06/24/20 Oxycodone HCl 5 mg PO Q4H PRN PRN 7 Days #10 cap 06/24/20 Pregabalin [Lyrica] 100 mg PO BID #10 cap 06/24/20 Following Prescriptions Were Given to Patient: Amoxicillin/Potassium Clav [Amox-Clav 875-125 mg Tablet] 1 ea PO Q12H 5 Days #10 tab Pregabalin [Lyrica] 100 mg PO BID #10 cap Prescription Printed Oxycodone HCl 5 mg PO Q4H PRN PRN 7 Days #10 cap PRN Reason: Pain Score 1-10 Prescription Printed Primary Care Physician: Tata Molina MD [Primary Care Provider] - Disposition: [facility] facility Minutes spent on discharge:: 30 Patient Condition:: Stable Medical Necessity - Tobacco Use Smoking Status: Former smoker Tobacco Use: Non-smoker Meaningful Use Info Meaningful Use Diagnoses (Choose all that apply): None applicable OBSV E&M: 18235 Observation care discharge
== END 2020-06-24 20:10 | disposition skilled nursing facility (03) ==
LOC: ED 06-24 01:02 → PCU 06-24 01:16
PROVIDERS: Admitting Provider Student in an Organized Health Care Education/Training Program; Emergency Provider Emergency Medicine; PCP Internal Medicine; Visit Provider Internal Medicine
DX: J44.9 Chronic obstructive pulmonary disease, unspecified (principal); S82.851D Displaced trimalleolar fracture of right lower leg, subsequent encounter for closed fracture with routine healing; W19.XXXD Unspecified fall, subsequent encounter; F20.9 Schizophrenia, unspecified; Z79.899 Other long term (current) drug therapy; Z87.891 Personal history of nicotine dependence; Z79.4 Long term (current) use of insulin; E11.42 Type 2 diabetes mellitus with diabetic polyneuropathy; M79.7 Fibromyalgia; F32.9 Major depressive disorder, single episode, unspecified; H54.62 Unqualified visual loss, left eye, normal vision right eye; F41.9 Anxiety disorder, unspecified; J96.11 Chronic respiratory failure with hypoxia; Z91.19 Patient's noncompliance with other medical treatment and regimen; G40.909 Epilepsy, unspecified, not intractable, without status epilepticus; R94.31 Abnormal electrocardiogram [ECG] [EKG]
CPT/HCPCS: 36415; 71045; 71275; 80048; 82962; 83735; 83880; 84484; 85025; 85610; 87426; 93005; 93306; 96372; 99218; 99285; Q9957; Q9967; A4216; C8929; G0378

== ENCOUNTER 2020-07-21 13:09 | Emergency (ER) | payer MEDICAID, SELFPAY ==
[2020-06-24 01:57] VITALS: BMI 28.5
[2020-07-21 13:10] VITALS: BP 110/69; PULSE 77; RESP 15; TEMP 36.9; O2SAT 89; BMI 32.1
[2020-07-21 13:12] VITALS: BP 110/69; PULSE 79; RESP 16; TEMP 36.9; O2SAT 95
--- NOTE | 2020-07-21 13:25 | EKG12_ITS ---
Test Reason : Blood Pressure : / mmHG Vent. Rate : 072 BPM Atrial Rate : 072 BPM P-R Int : 122 ms QRS Dur : 092 ms QT Int : 430 ms P-R-T Axes : 058 100 075 degrees QTc Int : 470 ms Normal sinus rhythm Possible Left atrial enlargement Incomplete right bundle branch block Poor R wave progression Abnormal ECG Confirmed by KATE LYNN, DAWIT ([id number]), design editor MISAEL DHILLON ([id number]) on 07/23/2020 11:01:10 AM Referred By: TONY/KARLOS Confirmed By:DAWIT LOVE MD
--- NOTE | 2020-07-21 13:27 | ED.DCSUM_ITS ---
- ER Visit Summary Date of Service: 07/21/20 Chief Complaint: Left ankle wound History of Present Illness: The patient is a 50 F who presents with left ankle wound that has been getting worse over the past 2 weeks. Patient states the staff at the correction thinks it may be getting infected. Patient states she has been seeing a mattress specialist for this. Patient states she fell approximately 1 month ago and had a left ankle fracture. Patient states that they wanted the wound to heal up before they did surgery. Patient has been in a short leg posterior and sugar tong splint. Patient also thinks she has a urinary tract infection. Physical Examination: Vital signs are stable. Patient is afebrile. Patient is in no acute distress. Oral mucosa is pink and moist. Neck is supple. Trachea is midline. There is no JVD. Heart was regular rate and rhythm. Lungs are clear and equal bilateral. Abdomen is soft and nontender. Musculoskeletal exam reveals tenderness over the left ankle. Skin is warm dry. There is a grade 3 ulceration over the medial aspect of the left ankle. There is some surrounding erythema. There is some mild drainage. Sensation was decreased to light touch in all digits of the left foot. Patient states she has a history of neuropathy. Pedal pulses are equal bilaterally. Test Results: CBC shows a mild leukocytosis of 11.2. Comprehensive metabolic profile is essentially within normal limits. PT with INR and PTT were normal. Lactate was normal. Urinalysis shows leukocyte esterase of 500 with 25-50 white blood cells and 1+ bacteria. Portable 1 view chest x-ray was obtained. On my interpretation, lung naylor are clear. There is normal cardiac silhouette. Bony thorax is normal. There is no acute process noted. Radiologist also interpreted the x-ray and agrees. EKG was obtained. On my interpretation, there is a normal sinus rhythm with a rate of 72. There are no acute ST or T wave changes. WI interval, QRS interval, and QT interval are normal. [place] is normal. Emergency Department Course and Treatment: Patient was given a dose of Unasyn here. Blood cultures and urine culture were obtained. Patient was given a prescription for Augmentin. Adaptic and ABD dressing was applied to the patient's wound. The splints were reapplied. Patient was instructed to follow- up with her primary care physician, wound care physician, and orthopedic physic sushant as scheduled. Patient understood and was agreeable with the plan. All questions were answered. Disposition: Discharge home Impression: 1. Urinary tract infection 2. Open wound left ankle 3. History of left ankle fracture This note was generated with [employer] dictation software. It may contain incorrect words, spelling, and punctuation that were not noted in review of the chart prior to signing ED Disposition - Plan for ED Patient: Disposition: Snf Facility Diagnosis: Urinary tract infection, Open wound of left ankle, History of fracture of left ankle Instructions: ED Bladder Infection, Female (Adult), Pressure Ulcer Prescriptions: Amox/Clavulanate Tablet [Augmentin Tablet] 875 mg PO Q12H #20 tab Prescription Printed Referrals: Tata Molina MD [STAFF PHYSICIAN] - 3-5 Days
[2020-07-21 13:48] LABS: Absolute Neutrophil Count 8.3 X10^3/uL (2.0-7.7); Basophil# 0.08 X10^3/uL; Basophil% 0.7 % (0-1); Eosinophil# 0.45 X10^3/uL; Hematocrit 41.6 % (37-47); Hemoglobin 12.2 g/dL (12.0-15.0); Lymphocyte % 13.5 % (19-41); Mean Corp Hgb Conc 29.3 g/dL (32-36); Mean Corpuscular Hgb 26.6 pg (27.0-32.0); Mean Corpuscular Volume 90.8 fL (81-99); Monocyte# 0.76 X10^3/uL; Monocyte% 6.8 % (0-10); NRBC Flagged by Analyzer 0 % (0-5); Neutrophil # 8.31 X10^3/uL (2.7-7.7); Neutrophil % 74.6 % (47-70); Platelet Count 311 K/mm3 (150-450); RBC Distribution Width CV 15.7 % (11.6-14.6); RBC Distribution Width SD 52.4 fl (35.1-43.9); Red Blood Count 4.58 M/mm3 (4.2-5.4); White Blood Count 11.2 K/mm3 (4.4-11.0)
[2020-07-21 14:00] LABS: Prothrombin Time (Protime)PT. 12.9 SECONDS (11.7-14.9)
--- NOTE | 2020-07-21 14:00 | RAD_ITS ---
STUDY: X-RAY CHEST REASON FOR EXAM: Female, 50 years old. Cough TECHNIQUE: Single AP portable view of the chest. COMPARISON: None. FINDINGS: Ill-defined subpleural groundglass opacities are seen more prominent in the lung bases , may represent atypical pneumonia or viral pneumonia (COVID-19 ?). There is no demonstrated pleural abnormality. Normal size heart. Normal mediastinum and rachael. Normal visualized pulmonary arteries. Normal visualized aortic arch and descending thoracic aorta. Normal visualized thoracic spine. Normal visualized ribs, clavicles, and shoulders. There is no demonstrated abnormality of the visualized soft tissue structures of the upper abdomen. RAD/Chest 1 View (Portable) IMPRESSION: Degenerative changes, as described above. No demonstrated acute cardiopulmonary process. Electronically Signed: Katy Lee MD at 14:45 EST Tel , Service support ,
[2020-07-21 14:01] LABS: Partial Thromboplast Time 30.8 Seconds (24.1-36.2)
[2020-07-21 14:03] LABS: ALB/GLOB Ratio 0.5 RATIO (0.9-2.4); AST(SGOT) 10 U/L (15-37); Alanine Aminotransfer ALT/SGPT 13 U/L (13-56); Albumin, Serum 2.3 g/dL (3.2-5.0); Alkaline Phosphatase 97 U/L (45-117); Anion Gap 2 (5-15); BUN 19 mg/dL (7-18); BUN/Creat Ratio 13.9 RATIO (10-20); Calcium,Total 8.9 mg/dL (8.5-10.1); Chloride 103 mmol/L (98-107); Creatinine, Serum 1.37 mg/dL (0.55-1.02); EST Glomerular Filtration Rate 43 mL/min (>60); Est Glom Filt Rate - Afr Amer 52 mL/min (>60); Estimated Creatinine Clearance 43.22 ml/min; Globulin 4.9 g/dL (2.2-4.2); Glucose 208 mg/dL (74-106); Protein, Total 7.2 g/dL (6.4-8.2); Sodium Level 140 mmol/L (136-145)
[2020-07-21 14:04] LABS: Lactic Acid 1.2 mmol/L (0.4-1.9)
[2020-07-21 14:17] LABS: Mucous, Urine 0 SEEN /hpf (<or=2+)
[2020-07-21 14:20] VITALS: BP 130/70; PULSE 70; RESP 10; TEMP 37.1; O2SAT 95
[2020-07-21 14:27] LABS: Color, Urine Yellow (Yellow); Glucose, Dipstick 50 mg/dl (Normal); Ketone-Dipstick Negative (Negative); Leukocyte Esterase-Dipstick 500 /ul (Negative); Nitrite-Dipstick Negative (Negative); Occult Blood-Urine 50 /ul (Negative); Protein-Dipstick 100 mg/dl (Negative); Urine Bilirubin Dipstick Negative (Negative); Urine Clarity Sl. Cloudy (Clear); Urine Urobilinogen Normal (Normal)
[2020-07-21 14:33] LABS: Bacteria 1+ /hpf (None Seen); Red Blood Cells-Urine 0-5 SEEN /hpf (0-5); Squamous Epithelial Cells - UA 0-5 SEEN /hpf (5-10); White Blood Cells 25-50 SEEN /hpf (0-5)
[2020-07-21 14:40] VITALS: BP 130/70
[2020-07-21 15:54] VITALS: BP 123/71; PULSE 70; RESP 9; O2SAT 93
== END 2020-07-21 16:29 | disposition skilled nursing facility (03) ==
PROVIDERS: Emergency Provider Emergency Medicine; PCP Family Medicine
DX: N39.0 Urinary tract infection, site not specified (principal); S82.892A Other fracture of left lower leg, initial encounter for closed fracture; L97.321 Non-pressure chronic ulcer of left ankle limited to breakdown of skin; E11.42 Type 2 diabetes mellitus with diabetic polyneuropathy; Z87.891 Personal history of nicotine dependence
CPT/HCPCS: 71045; 80053; 81001; 83605; 85025; 85610; 85730; 87040; 87086; 87088; 93005; 99285

== ENCOUNTER 2020-08-04 16:59 | Inpatient (IN) | payer MEDICAID, SELFPAY ==
[2020-08-04] VITALS (9 sets, daily range): BP systolic 115–135; BP diastolic 72–98; PULSE 76–88; RESP 12–21; TEMP 36.7–37.2; O2SAT 92–97; BMI 32.9; BMI 31.2
--- NOTE | 2020-08-04 17:22 | ED.DCSUM_ITS ---
History of Present Illness Chief Complaint: Lower Extremity Injury Informant: Patient, - - Dr. Doyle Narrative: 50-year-old diabetic female with an open wound over the medial aspect of her left ankle. It is a poor historian. She tells me that she broke her ankle 3 weeks ago. Actuality she broke her ankle on June 24. She had it reduced and was transferred to [facility] to await surgery. At that time she had an abrasion that was felt not to communicate with the fracture site. She was admitted on June 24 for hypoxia. She received a consultation from Dr. Andrae Dumont. The decision was to allow the wound to heal prior to ORIF. She was referred to wound care clinic. She tells me that there was a wound doctor coming to the [facility] over the past couple weeks. She states she was advised not to walk on the ankle but she states she could not handle not walking so she has been using a walker. Over the past several weeks reportedly the wound has markedly worsened. She went to see podiatry today and was sent to the hospital for admission plan for surgery tomorrow. Aerobic cultures were obtained in the office and Dr. Doyle asked to obtained anaerobic cultures. Patient denies any fevers. - Past Medical History (1) Depression Status: Chronic (2) Diabetes Status: Chronic (3) Peripheral neuropathy Status: Chronic (4) Schizophrenia Status: Chronic Past Medical History - Allergies and Home Meds Allergies/Adverse Reactions: Allergies Sulfa (Sulfonamide Antibiotics) Allergy (Verified 08/04/20 17:07) Hives Primary Care Physician: Júnior Lee MD [Primary Care Provider] - Surgical History: cholecystectomy, - - Tubal ligation. Lives: [place] Smoking Status: Current every day smoker Alcohol: None Drugs: None - Family History Maternal Family History: Reports: - - Maternal history was unable to be obtained because of confusion. Significant other not available to provide history. Paternal Family History: Reports: - - Paternal history was unable to be obtained because of confusion. Significant other not available to provide history. Review of Systems General: Denies: Chills, Fever, Sweats Eyes: Denies: Visual changes - bilaterally, Diplopia ENT: Denies: Rhinorrhea, Sore throat Cardiovascular: Denies: Chest pain, Palpitations Respiratory: Denies: Dyspnea, Cough, Dyspnea on exertion Gastrointestinal: Denies: Abdominal pain, Nausea, Vomiting, Diarrhea, Melena, Hematochezia Genitourinary: Denies: Dysuria, Hematuria, Frequency Musculoskeletal: Reports: Extremity Pain. Denies: Back pain Skin: Reports: Wounds. Denies: Rash Neurological: Denies: Headache, Weakness, Numbness Physical Exam Vital Signs/Narrative: Vital Signs Temp Pulse Resp BP Pulse Ox 08/04/20 17:06 98.9 F 78 18 124/89 H 92 08/04/20 17:02 98.9 F 78 18 124/89 H 92 Inital Vital Signs reviewed: Yes General: Well nourished, Well developed, Obese, No Acute Distress Head: Normocephalic, Atraumatic Eyes: Perrl, EOMI ENT: Moist mucous membranes, No rhinorrhea Neck: Supple, Nontender Cardiovascular: Regular rate, Regular rhythm, No murmurs Respiratory: No distress, CTA bilaterally, Chest nontender Abdomen: Soft, Nontender, Nondistended, Normal bowel sounds Back: Nontender, Normal Inspection Extremities: Tenderness Skin: - - There is a open area of exposed bone of about 2-1/2 to 3 cm over the medial malleolus. There is surrounding red weeping tissue around this. Mild surrounding erythema. No lymphangitic streaking. The joint appears unstable. Neurological: Alert, Oriented x3, Cranial nerves II-XII grossly intact, Normal Strength, Normal Sensation Psychological: Normal affect, Normal Mood Diagnostic/Tx/Re-eval Clinical Impression(s) from Imaging Studies Lower Extremity CT 08/04/20 17:28 IMPRESSION: Severely comminuted and displaced fractures of the medial and lateral malleoli with incomplete healing as well as tibiotalar dislocation. Electronically Signed: Edgar Mendoza MD at 18:43 EDT Tel , Service support , Chest X-Ray 08/04/20 18:20 IMPRESSION: Right lower lobe infiltrate or atelectasis. Discoid atelectasis in left lower lobe Electronically Signed: Luther Santos MD at 18:54 EDT , Service support , Laboratory Last Values WBC 11.1 K/mm3 (4.4-11.0) H 08/04/20 17:50 RBC 4.34 M/mm3 (4.2-5.4) 08/04/20 17:50 Hgb 11.3 g/dL (12.0-15.0) L 08/04/20 17:50 Hct 40.0 % (37-47) 08/04/20 17:50 MCV 92.2 fL (81-99) 08/04/20 17:50 MCH 26.0 pg (27.0-32.0) L 08/04/20 17:50 MCHC 28.3 g/dL (32-36) L 08/04/20 17:50 RDW Std Deviation 54.6 fl (35.1-43.9) H 08/04/20 17:50 RDW Coeff of Krista 16.2 % (11.6-14.6) H 08/04/20 17:50 Plt Count 517 K/mm3 (150-450) H 08/04/20 17:50 MPV 10.1 fl (6.2-12.0) 08/04/20 17:50 Immature Gran % (Auto) 0.800 % (0.0-0.9) 08/04/20 17:50 Neut % (Auto) 74.6 % (47-70) H 08/04/20 17:50 Lymph % (Auto) 13.8 % (19-41) L 08/04/20 17:50 Lincoln % (Auto) 7.1 % (0-10) 08/04/20 17:50 Eos % (Auto) 3.1 % (0-5) 08/04/20 17:50 Baso % (Auto) 0.6 % (0-1) 08/04/20 17:50 Absolute Neuts (auto) 8.3 X10^3/uL (2.0-7.7) H 08/04/20 17:50 Absolute Lymphs (auto) 1.53 X10^3/uL (0.83-4.51) 08/04/20 17:50 Nucleated RBC % 0 % (0-5) 08/04/20 17:50 PT 13.6 SECONDS (11.7-14.9) 08/04/20 17:50 INR 1.1 08/04/20 17:50 APTT 33.7 Seconds (24.1-36.2) 08/04/20 17:50 Sodium 141 mmol/L (136-145) 08/04/20 17:50 Potassium 4.9 mmol/L (3.5-5.1) 08/04/20 17:50 Chloride 107 mmol/L (98-107) 08/04/20 17:50 Carbon Dioxide 33.0 mmol/L (21.0-32.0) H 08/04/20 17:50 Anion Gap 1 (5-15) L 08/04/20 17:50 BUN 30 mg/dL (7-18) H 08/04/20 17:50 Creatinine 1.27 mg/dL (0.55-1.02) H 08/04/20 17:50 Estim Creat Clear Calc 46.63 ml/min 08/04/20 17:50 Est GFR (MDRD) Af Amer 57 mL/min (>60) L 08/04/20 17:50 Est GFR (MDRD) Non-Af 47 mL/min (>60) L 08/04/20 17:50 BUN/Creatinine Ratio 23.6 RATIO (10-20) H 08/04/20 17:50 Glucose 74 mg/dL (74-106) 08/04/20 17:50 Hemoglobin A1c 8.0 % (3.8-5.6) H 08/04/20 17:50 Lactic Acid 0.6 mmol/L (0.4-1.9) 08/04/20 17:50 Calcium 8.8 mg/dL (8.5-10.1) 08/04/20 17:50 Total Bilirubin 0.20 mg/dL (0.20-1.00) 08/04/20 17:50 AST 7 U/L (15-37) L 08/04/20 17:50 ALT 13 U/L (13-56) 08/04/20 17:50 Alkaline Phosphatase 122 U/L (45-117) H 08/04/20 17:50 Total Protein 7.6 g/dL (6.4-8.2) 08/04/20 17:50 Albumin 2.0 g/dL (3.2-5.0) L 08/04/20 17:50 Globulin 5.6 g/dL (2.2-4.2) H 08/04/20 17:50 Albumin/Globulin Ratio 0.4 RATIO (0.9-2.4) L 08/04/20 17:50 Urine Opiates Screen NEGATIVE (< 300 ng/mL) 08/04/20 19:30 Urine Methadone Screen NEGATIVE (< 300 ng/mL) 08/04/20 19:30 Ur Barbiturates Screen NEGATIVE (< 200 ng/mL) 08/04/20 19:30 Ur Phencyclidine Scrn NEGATIVE (< 25 ng/mL) 08/04/20 19:30 Ur Amphetamines Screen NEGATIVE (<1000 ng/mL) 08/04/20 19:30 U Methamphetamin-MDMA NEGATIVE (< 500 ng/mL) 08/04/20 19:30 U Benzodiazepines Scrn NEGATIVE (< 200 ng/mL) 08/04/20 19:30 Urine Cocaine Screen NEGATIVE (< 300 ng/mL) 08/04/20 19:30 U Cannabinoids Screen NEGATIVE (< 50 ng/mL) 08/04/20 19:30 Ur Drug Screen Comment 08/04/20 19:30 Ethyl Alcohol < 3.0 mg/dL 08/04/20 17:50 - EKG Initial EKG Interpretation: Sinus Rhythm - KG demonstrates a normal sinus rhythm at a rate of 71. No convincing features of ACS or ectopy - Medical Decision Making The splint was taken down so I could obtain anaerobic cultures as aerobic cultures already obtained and these were requested by podiatry. White count slightly elevated. My interpretation of the single view portable chest x-ray is chronic changes. Radiology feels there is a right-sided infiltrate however comparing to prior I do not think that there is a significant change in the patient does not seem to have any clinical symptoms of pneumonia. She does have chronic hypoxemic COPD and typically sats 89-93 which is where she is at today. She does not want to wear supplemental oxygen. CT of the lower extremity was obtained for preoperative planning. Patient was placed back into a posterior stirrup splint. The joint is extremely unstable. She received vancomycin and cefepime. Covid test is negative. Hospitalist will be contacted for admission ED Disposition - Plan for ED Patient: Disposition: Acute Care Hospital [facility] Diagnosis: Open left ankle fracture, Type II diabetes mellitus, Hypoxia, COPD (chronic obstructive pulmonary disease) Referrals: Lee,Júnior, MD [Primary Care Provider] -
--- NOTE | 2020-08-04 17:27 | EKG12_ITS ---
Test Reason : LOWER EXTREMITY Blood Pressure : / mmHG Vent. Rate : 071 BPM Atrial Rate : 071 BPM P-R Int : 126 ms QRS Dur : 090 ms QT Int : 446 ms P-R-T Axes : 060 098 060 degrees QTc Int : 484 ms Normal sinus rhythm Possible Left atrial enlargement Rightward axis Prolonged QT Abnormal ECG Confirmed by MARIUM LYNN, CAROLINE ([id number]), editor managing director SHAHEED GUEVARA ([id number]) on 08/07/2020 12:32:30 PM Referred By: Confirmed By:DEWAYNE CAUSEY MD
--- NOTE | 2020-08-04 17:28 | CT_ITS ---
INDICATION: open ankle fracture EXAMINATION: CT Lower Extremity W/O Contrast Injection TECHNIQUE: Helically acquired images were obtained of the left ankle. 2-D reformats were performed by the technologist. A radiation dose optimization technique was used for this scan. IV Contrast dosage and agent: None. COMPARISON: None. FINDINGS: BONES AND ALIGNMENT: Severely comminuted and displaced fractures of the medial and lateral malleoli with incomplete healing. There is heterotopic bone formation. JOINTS: There is tibiotalar dislocation. SOFT TISSUES: Marked soft tissue swelling, edema and subcutaneous emphysema of the ankle. CT/Extremity Lower without Contra IMPRESSION: Severely comminuted and displaced fractures of the medial and lateral malleoli with incomplete healing as well as tibiotalar dislocation. Electronically Signed: Edgar Mendoza MD at 18:43 EDT Tel , Service support ,
--- NOTE | 2020-08-04 18:20 | RAD_ITS ---
STUDY: X-RAY CHEST REASON FOR EXAM: Female, 50 years old. hypoxia TECHNIQUE: AP portable COMPARISON: 07/21/2020 FINDINGS: Mild right lower lobe atelectasis or infiltrate. Discoid atelectasis in left lower lobe. There is no demonstrated pleural abnormality. Normal size heart. Normal mediastinum and rachael. Normal visualized pulmonary arteries. Normal visualized aortic arch and descending thoracic aorta. Normal visualized thoracic spine. Normal visualized ribs, clavicles, and shoulders. There is no demonstrated abnormality of the visualized soft tissue structures of the upper abdomen. RAD/Chest 1 View (Portable) IMPRESSION: Right lower lobe infiltrate or atelectasis. Discoid atelectasis in left lower lobe Electronically Signed: Luther Santos MD at 18:54 EDT , Service support ,
[2020-08-04 18:24] LABS: Absolute Lymphocyte Count 1.53 X10^3/uL (0.83-4.51); Absolute Neutrophil Count 8.3 X10^3/uL (2.0-7.7); Basophil# 0.07 X10^3/uL; Basophil% 0.6 % (0-1); Eosinophil# 0.34 X10^3/uL; Eosinophils% 3.1 % (0-5); Hemoglobin 11.3 g/dL (12.0-15.0); Lymphocyte # 1.53 X10^3/ul (4.0); Lymphocyte % 13.8 % (19-41); Mean Corp Hgb Conc 28.3 g/dL (32-36); Mean Corpuscular Volume 92.2 fL (81-99); Mean Platelet Vol. 10.1 fl (6.2-12.0); Monocyte# 0.79 X10^3/uL; Monocyte% 7.1 % (0-10); NRBC Flagged by Analyzer 0 % (0-5); Neutrophil # 8.25 X10^3/uL (2.7-7.7); Neutrophil % 74.6 % (47-70); Platelet Count 517 K/mm3 (150-450); RBC Distribution Width CV 16.2 % (11.6-14.6); RBC Distribution Width SD 54.6 fl (35.1-43.9); Red Blood Count 4.34 M/mm3 (4.2-5.4); White Blood Count 11.1 K/mm3 (4.4-11.0)
[2020-08-04 18:38] LABS: Alcohol, Blood (Medical)-Serum < 3.0 mg/dL
[2020-08-04 18:43] LABS: ALB/GLOB Ratio 0.4 RATIO (0.9-2.4); AST(SGOT) 7 U/L (15-37); Alanine Aminotransfer ALT/SGPT 13 U/L (13-56); Alkaline Phosphatase 122 U/L (45-117); Anion Gap 1 (5-15); BUN 30 mg/dL (7-18); BUN/Creat Ratio 23.6 RATIO (10-20); Calcium,Total 8.8 mg/dL (8.5-10.1); Chloride 107 mmol/L (98-107); Creatinine, Serum 1.27 mg/dL (0.55-1.02); EST Glomerular Filtration Rate 47 mL/min (>60); Est Glom Filt Rate - Afr Amer 57 mL/min (>60); Estimated Creatinine Clearance 46.63 ml/min; Globulin 5.6 g/dL (2.2-4.2); Glucose 74 mg/dL (74-106); Potassium 4.9 mmol/L (3.5-5.1); Protein, Total 7.6 g/dL (6.4-8.2); Sodium Level 141 mmol/L (136-145)
[2020-08-04 18:44] LABS: International Normalized Ratio 1.1; Prothrombin Time (Protime)PT. 13.6 SECONDS (11.7-14.9)
[2020-08-04 18:45] LABS: Partial Thromboplast Time 33.7 Seconds (24.1-36.2)
[2020-08-04 19:04] LABS: Lactic Acid 0.6 mmol/L (0.4-1.9)
[2020-08-04 19:57] LABS: Amphetamine Urine VISTA NEGATIVE (<1000 ng/mL); Barbiturate Urine VISTA NEGATIVE (< 200 ng/mL); Benzodiazepine Urine VISTA NEGATIVE (< 200 ng/mL); Cocaine Urine VISTA NEGATIVE (< 300 ng/mL); Ecstacy Urine VISTA NEGATIVE (< 500 ng/mL); Methadone Urine VISTA NEGATIVE (< 300 ng/mL); PCP Urine VISTA NEGATIVE (< 25 ng/mL); THC Urine VISTA NEGATIVE (< 50 ng/mL); Vista UDS pH Range 5
[2020-08-04] MEDS: Morphine 4 MG/ML Syringe IV (20:25)
[2020-08-04] MEDS: Ondansetron 4 MG/2 ML Vial IV (20:25)
--- NOTE | 2020-08-04 21:01 | PCM.HP.STD ---
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 Doyle's office with a open wound over the medial aspect of her left ankle. Patient is a poor historian. Patient fractured her ankle on June 24 when it was reduced and splinted, she was then transferred to a [facility]. At that time the decision was made by Dr. Andrae Dumont to allow the wound to heal prior to an ORIF. Patient has been noncompliant with nonweightbearing status at the fci. She was then seen today by Dr. Doyle who upon seeing the wound obtained and anaerobic culture and sent her to the ER for medical management with a plan to take patient to surgery tomorrow. Anaerobic cultures were completed in ER. Left ankle is currently in a posterior stirrup splint that was placed by ER. 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) Diabetes (Chronic) Blind left eye (Chronic) Type II diabetes mellitus (Chronic) Depression (Chronic) Anxiety (Chronic) Peripheral neuropathy (Chronic) Hyperosmolar hyponatremia (Chronic) Medical History: Medical History (Last Reviewed 08/04/20 @ 21:07 by Zuleyka Knoble, TOP FLAVOR ATTENDANT-C) Fibromyalgia M79.7 Schizophrenia F20.9 Allergies Sulfa (Sulfonamide Antibiotics) Allergy (Verified 08/04/20 17:07) Hives Home Medications: Ambulatory Orders Medication Instructions Recorded Oxybutynin Chloride [Ditropan Xl] 5 mg PO BID 06/10/17 Duloxetine Hcl [Cymbalta] 30 mg PO BID 10/24/19 Acetaminophen [Tylenol] 500 mg PO TID 06/23/20 Ascorbic Acid 500 mg PO DAILY 08/04/20 Docusate Sodium 100 mg PO BID 08/04/20 Ergocalciferol (Vitamin D2) 50,000 unit PO FR 08/04/20 [Vitamin D2] Furosemide [Lasix] 40 mg PO DAILY 08/04/20 Insulin Glargine,Hum.rec.anlog 22 unit SQ BID 08/04/20 [Lantus] Insulin Lispro Protamin/Lispro 13 unit SQ TIDCM 08/04/20 [Humalog Mix 50-50 Vial] Insulin Lispro [Humalog] See Protocol SQ TIDCM 08/04/20 Levetiracetam [Keppra] 500 mg PO BID 08/04/20 M-Vit,Tx,Iron,Mins/Calc/Folic 1 tablet PO DAILY 08/04/20 [Thera-M Caplet] Multivit,Stress Formula/Zinc 1 tablet PO BID 08/04/20 [Stress Formula with Zinc Tab] Oxycodone HCl 5 mg PO Q4H PRN PRN 08/04/20 Prazosin HCl 2 mg PO QHS 08/04/20 Pregabalin [Lyrica] 100 mg PO BID 08/04/20 Risperidone 0.25 mg PO BID 08/04/20 Surgical History: cholecystectomy, - - Tubal ligation. 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 Significant other not available to provide history. Paternal History Items: - - Paternal history was unable to be obtained because of confusion. Significant other not available to provide history. Review of Systems Constitutional: Denies: Chills, Fever, Weight Change HEENT: Denies: Head Aches, Sinus Congestion, Sinus Drainage Cardiovascular: Denies: Chest Pain, Palpitations Respiratory: Denies: Cough, Shortness of breath at rest, Sputum production Gastrointestinal: Denies: Abdominal Pain, Nausea, Vomiting Genitourinary: Denies: Dysuria Musculoskeletal: Reports: Foot Pain, Joint Tenderness - Left ankle Skin: Reports: Wounds - Nonhealing wound to medial left ankle. Denies: Rash Neurological: Denies: Numbness, Tingling, Focal weakness Psychiatric: Denies: Anxiety, Depression, Homicidal Ideations, Suicidal Ideations Hematologic/ Lymphatic: Denies: Easy Bruising, Easy Bleeding VTE Information - Inpt Only VTE Present on Admission: No VTE Mechan Device Prophylaxis: SCD's VTE Pharm Prophylaxis ordered?: No Patient Problems: Active and Suspected Problems (Last Reviewed 08/04/20 @ 21:07 by Zuleyka Donald NP-C) Hypoxia (Acute) secondary to COPD with altered mental status Open left ankle fracture (Acute) Leukocytosis (Acute) - Physical Exam Vitals/I&O's: Vital Signs Temp Pulse Resp BP Pulse Ox 98.0 F 82 16 135/72 H 95 08/04/20 20:54 08/04/20 20:54 08/04/20 20:54 08/04/20 20:54 08/04/20 20:54 Oxygen Flow Rate (L/min) 3 Oxygen Delivery Method Nasal Cannula Weight: 190 lb 11.198 oz Body Mass Index (BMI) 31.2 Finger Stick Blood Glucose 123 Intake and Output for Last 24 Hours 08/02/20 08/03/20 08/04/20 23:59 23:59 23:59 Intake Total 100 / 100 Balance 100 / 100 General: Alert, Oriented x3, Cooperative HEENT: Atraumatic, PERRLA, EOMI, Normocephalic Neck: Supple, No JVD, Negative Carotid Bruits Lungs: Clear to auscultation, Diminished, Wheezes - Occasional in bases Cardiovascular: Regular rate, Regular Rhythm, Normal S1, Normal S2, No murmurs Abdomen: Bowel Sounds Present, Soft, Non Tender Extremities: Capillary Refill Less than 3 Seconds, Edema - Left ankle and leg, Peripheral Pulses Normal Skin: No rashes, Ulcer/ Wound - Open area to medial left ankle Musculoskeletal: Tenderness - With and without palpation to left ankle and foot Neurological: Cranial nerves II-XII grossly intact Psych/Mental Status: Normal Affect, Appropriate Microbiology Past 72 Hours 08/04/20 18:00 Mucosa - Nose SARS-CoV-2 Antigen (Rapid) - Final Laboratory Results 08/04/20 17:50: WBC 11.1 H, RBC 4.34, Hgb 11.3 L, Hct 40.0, MCV 92.2, MCH 26.0 L, MCHC 28.3 L, RDW Std Deviation 54.6 H, RDW Coeff of Krista 16.2 H, Plt Count 517 H, MPV 10.1, Immature Gran % (Auto) 0.800, Neut % (Auto) 74.6 H, Lymph % (Auto) 13.8 L, Young % (Auto) 7.1, Eos % (Auto) 3.1, Baso % (Auto) 0.6, Absolute Neuts (auto) 8.3 H, Absolute Lymphs (auto) 1.53, Nucleated RBC % 0 08/04/20 17:50: PT 13.6, INR 1.1, APTT 33.7 08/04/20 17:50: Sodium 141, Potassium 4.9, Chloride 107, Carbon Dioxide 33.0 H, Anion Gap 1 L, BUN 30 H, Creatinine 1.27 H, Estim Creat Clear Calc 46.63, Est GFR (MDRD) Af Amer 57 L, Est GFR (MDRD) Non-Af 47 L, BUN/Creatinine Ratio 23.6 H, Glucose 74, Calcium 8.8, Total Bilirubin 0.20, AST 7 L, ALT 13, Alkaline Phosphatase 122 H, Total Protein 7.6, Albumin 2.0 L, Globulin 5.6 H, Albumin/Globulin Ratio 0.4 L 08/04/20 17:50: Ethyl Alcohol < 3.0 08/04/20 17:50: Lactic Acid 0.6 08/04/20 17:50: Hemoglobin A1c 8.0 H 08/04/20 19:30: Urine Opiates Screen NEGATIVE, Urine Methadone Screen NEGATIVE, Ur Barbiturates Screen NEGATIVE, Ur Phencyclidine Scrn NEGATIVE, Ur Amphetamines Screen NEGATIVE, U Methamphetamin-MDMA NEGATIVE, U Benzodiazepines Scrn NEGATIVE, Urine Cocaine Screen NEGATIVE, U Cannabinoids Screen NEGATIVE, Ur Drug Screen Comment Current Medications Acetaminophen (Acetaminophen 325 Mg Tablet) 650 mg PO Q6H PRN PRN PRN Reason: Pain Score 1-10/Temp > 100.7 F Ascorbic Acid (Ascorbic Acid 500 Mg Tablet) 500 mg PO DAILY [facility] Docusate Sodium (Docusate Sodium 100 Mg Capsule) 100 mg PO BID PRN PRN PRN Reason: Constipation Doxazosin Mesylate (Doxazosin 1 Mg Tablet) 2 mg PO QHS [facility] Duloxetine HCl (Duloxetine Hcl 30 Mg Capsule) 30 mg PO BID [facility] Ergocalciferol (Ergocalciferol 50,000 Unit Capsule) 50,000 unit PO Fr@1000 [facility] Furosemide (Furosemide 40 Mg Tablet) 40 mg PO DAILY [facility] Sodium Chloride () 1,000 mls @ 100 mls/hr IV .Q10H [facility] Piperacillin Sod/Tazobactam (Sod 3.375 gm/ Sodium Chloride) 50 mls @ 12.5 mls/hr IV Q8 [facility] Vancomycin IV Pharmacy to Dose (1 each/ Sodium Chloride) 500 mls @ 250 mls/hr IV X1 PRN; Protocol PRN Reason: Rx to Dose Insulin Glargine (Insulin Glargine 100 Units/Ml Pen) 22 units SC 1100,2200 [facility] Insulin Human Lispro (Insulin Lispro 100 Unit/Ml Insuln.Pen) 0 unit SC ACHS KINJAL; Protocol Insulin Human Lispro (Insulin Lispro 100 Unit/Ml Insuln.Pen) 13 unit SC 0800,1200,1700 [facility] Levetiracetam (Levetiracetam 500 Mg Tablet) 500 mg PO BID [facility] Morphine Sulfate (Morphine 2 Mg/Ml Syringe) 2 mg IV Q3H PRN PRN PRN Reason: Pain Score 6-10 Ondansetron HCl (Ondansetron 4 Mg/2 Ml Vial) 4 mg IV Q8H PRN PRN PRN Reason: NAUSEA/VOMITING Oxycodone HCl (Oxycodone 5 Mg Tablet) 5 mg PO Q4H PRN PRN PRN Reason: Pain Score 4-5 Pregabalin (Pregabalin 50 Mg Capsule) 100 mg PO BID [facility] Risperidone (Risperidone 0.25 Mg Tablet) 0.25 mg PO BID [facility] Tolterodine Tartrate (Tolterodine Tartrate 2 Mg Cap.Sa) 2 mg PO DAILY [facility] Assessment/Plan All Active Problems (Last Reviewed 08/04/20 @ 21:07 by Zuleyka Donald, TOP FLAVOR ATTENDANT-C) Acute electrocardiogram changes (Acute) Hypoxia (Acute) Fracture tibia/fibula (Acute) Open left ankle fracture (Acute) Hyperglycemia (Acute) Dehydration (Acute) Leukocytosis (Acute) Altered level of consciousness (Acute) Hyperglycemia due to type 2 diabetes mellitus (Acute) Hypoxemia (Acute) MICHELE (acute kidney injury) (Acute) HHNC (hyperglycemic hyperosmolar nonketotic coma) (Acute) 1. Open left ankle fracture -Started on Vancomycin and Zosyn IV -NPO at midnight for surgery with Dr. Doyle tomorrow -Cultures completed in ER -CBC, CMP, and PT/INR in am -NWB status until after surgery 2. Chronic obstructive pulmonary disease -Albuterol and DuoNeb nebulizer treatments ordered -O2 protocol as needed maintain pulse ox greater than 90% -Encourage incentive spirometry 3. Diabetes mellitus type 2 -Continue home Lantus regimen. -AC at bedtime blood sugars ordered with sliding scale insulin 4.Depression and Anxiety -Continue home medication regimen 5. Peripheral neuropathy -Continue home medication regimen DVT Prophylaxis-SCD's, surgery in am This patient was seen by CHARLY Garrison under the supervision of Dr. Lee <Júnior Lee - Last Filed: 08/04/20 22:29> History of Present Illness The patient is a 50 year old F [] Past Medical History Medical History: Medical History (Last Reviewed 08/04/20 @ 21:07 by CHARLY Garrison) Fibromyalgia M79.7 Schizophrenia F20.9 Allergies Sulfa (Sulfonamide Antibiotics) Allergy (Verified 08/04/20 17:07) Hives - Physical Exam Vitals/I&O's: Vital Signs Temp Pulse Resp BP Pulse Ox 98.0 F 82 16 135/72 H 95 08/04/20 20:54 08/04/20 20:54 08/04/20 20:54 08/04/20 20:54 08/04/20 20:54 Oxygen Flow Rate (L/min) 3 Oxygen Delivery Method Nasal Cannula Weight: 190 lb 11.198 oz Body Mass Index (BMI) 31.2 Finger Stick Blood Glucose 123 Intake and Output for Last 24 Hours 08/02/20 08/03/20 08/04/20 23:59 23:59 23:59 Intake Total 640 / 640 Balance 640 / 640 Microbiology Past 72 Hours 08/04/20 18:00 Mucosa - Nose SARS-CoV-2 Antigen (Rapid) - Final Laboratory Results 08/04/20 17:50: WBC 11.1 H, RBC 4.34, Hgb 11.3 L, Hct 40.0, MCV 92.2, MCH 26.0 L, MCHC 28.3 L, RDW Std Deviation 54.6 H, RDW Coeff of Krista 16.2 H, Plt Count 517 H, MPV 10.1, Immature Gran % (Auto) 0.800, Neut % (Auto) 74.6 H, Lymph % (Auto) 13.8 L, Young % (Auto) 7.1, Eos % (Auto) 3.1, Baso % (Auto) 0.6, Absolute Neuts (auto) 8.3 H, Absolute Lymphs (auto) 1.53, Nucleated RBC % 0 08/04/20 17:50: PT 13.6, INR 1.1, APTT 33.7 08/04/20 17:50: Sodium 141, Potassium 4.9, Chloride 107, Carbon Dioxide 33.0 H, Anion Gap 1 L, BUN 30 H, Creatinine 1.27 H, Estim Creat Clear Calc 46.63, Est GFR (MDRD) Af Amer 57 L, Est GFR (MDRD) Non-Af 47 L, BUN/Creatinine Ratio 23.6 H, Glucose 74, Calcium 8.8, Total Bilirubin 0.20, AST 7 L, ALT 13, Alkaline Phosphatase 122 H, Total Protein 7.6, Albumin 2.0 L, Globulin 5.6 H, Albumin/Globulin Ratio 0.4 L 08/04/20 17:50: Ethyl Alcohol < 3.0 08/04/20 17:50: Lactic Acid 0.6 08/04/20 17:50: Hemoglobin A1c 8.0 H 08/04/20 19:30: Urine Opiates Screen NEGATIVE, Urine Methadone Screen NEGATIVE, Ur Barbiturates Screen NEGATIVE, Ur Phencyclidine Scrn NEGATIVE, Ur Amphetamines Screen NEGATIVE, U Methamphetamin-MDMA NEGATIVE, U Benzodiazepines Scrn NEGATIVE, Urine Cocaine Screen NEGATIVE, U Cannabinoids Screen NEGATIVE, Ur Drug Screen Comment Current Medications Acetaminophen (Acetaminophen 325 Mg Tablet) 650 mg PO Q6H PRN PRN PRN Reason: Pain Score 1-10/Temp > 100.7 F Ascorbic Acid (Ascorbic Acid 500 Mg Tablet) 500 mg PO DAILY KINJAL Docusate Sodium (Docusate Sodium 100 Mg Capsule) 100 mg PO BID PRN PRN PRN Reason: Constipation Doxazosin Mesylate (Doxazosin 1 Mg Tablet) 2 mg PO QHS [facility] Last Admin: 08/04/20 21:56 Dose: 2 mg Documented by: Duloxetine HCl (Duloxetine Hcl 30 Mg Capsule) 30 mg PO BID [facility] Last Admin: 08/04/20 21:57 Dose: 30 mg Documented by: Ergocalciferol (Ergocalciferol 50,000 Unit Capsule) 50,000 unit PO Fr@1000 [facility] Furosemide (Furosemide 40 Mg Tablet) 40 mg PO DAILY [facility] Sodium Chloride () 1,000 mls @ 100 mls/hr IV .Q10H [facility] Last Admin: 08/04/20 21:07 Dose: 100 mls/hr Documented by: Piperacillin Sod/Tazobactam (Sod 3.375 gm/ Sodium Chloride) 50 mls @ 12.5 mls/hr IV Q8 [facility] Last Admin: 08/04/20 21:58 Dose: 12.5 mls/hr Documented by: Vancomycin IV Pharmacy to Dose (1 each/ Sodium Chloride) 500 mls @ 250 mls/hr IV X1 PRN; Protocol PRN Reason: Rx to Dose Vancomycin HCl (Vancomycin) 1,000 mg in 200 mls @ 200 mls/hr IV Q12H [facility] Insulin Glargine (Insulin Glargine 100 Units/Ml Pen) 22 units SC 1100,2200 [facility] Last Admin: 08/04/20 21:50 Dose: Not Given Documented by: Insulin Human Lispro (Insulin Lispro 100 Unit/Ml Insuln.Pen) 0 unit SC ACHS [facility]; Protocol Last Admin: 08/04/20 21:49 Dose: Not Given Documented by: Insulin Human Lispro (Insulin Lispro 100 Unit/Ml Insuln.Pen) 13 unit SC 0800,1200,1700 [facility] Levetiracetam (Levetiracetam 500 Mg Tablet) 500 mg PO BID [facility] Last Admin: 08/04/20 21:56 Dose: 500 mg Documented by: Morphine Sulfate (Morphine 2 Mg/Ml Syringe) 2 mg IV Q3H PRN PRN PRN Reason: Pain Score 6-10 Ondansetron HCl (Ondansetron 4 Mg/2 Ml Vial) 4 mg IV Q8H PRN PRN PRN Reason: NAUSEA/VOMITING Oxycodone HCl (Oxycodone 5 Mg Tablet) 5 mg PO Q4H PRN PRN PRN Reason: Pain Score 4-5 Last Admin: 08/04/20 22:03 Dose: 5 mg Documented by: Pregabalin (Pregabalin 50 Mg Capsule) 100 mg PO BID [facility] Last Admin: 08/04/20 21:53 Dose: 100 mg Documented by: Risperidone (Risperidone 0.25 Mg Tablet) 0.25 mg PO BID [facility] Last Admin: 08/04/20 21:55 Dose: 0.25 mg Documented by: Tolterodine Tartrate (Tolterodine Tartrate 2 Mg Cap.Sa) 2 mg PO DAILY [facility] Assessment/Plan Patient seen and examined independently by myself and agree with above assessment and plan
[2020-08-04] MEDS: 0.9% Normal Saline 1,000 ML 100 ML IV (21:07)
[2020-08-04] MEDS: 0.9% Saline Lock 10 ML Syringe IV (21:46)
--- NOTE | 2020-08-04 21:48 | PCM.CONS.GEN ---
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 (5) Diabetes Status: Chronic Qualifiers: Diabetes mellitus type: type 2 Diabetes mellitus long term care pharmacist insulin use: with fci use Diabetes mellitus complication status: with ophthalmic complications Diabetes mellitus complication detail: with cataract Qualified Code(s): E11.36 - Type 2 diabetes mellitus with diabetic cataract; Z79.4 - jail (current) use of insulin (6) Peripheral neuropathy Status: Chronic Qualifiers: (7) Leukocytosis Status: Acute Reason for Consult Date of Consultation: 08/04/20 Reason for Consultation: left ankle open fracture History of Present Illness: The patient is a 50 year old F who presents today from [facility] to my office with an ankle fracture with wound to the medial malleolus. She presents with caregiver. Patient is a poor historian and relates that her fall that caused the fracture happened 3 to 4 weeks ago. Patient relates that she has not followed up with orthopedics since then. Patient had been admitted after the fall for heart issues at which time she was told that the fracture to her ankle would need surgery but that they would need to get the wound on her medial ankle to heal first. Patient has been seen by the wound care nurse and doctors at her facility for healing of the wound. She relates that the wound has since worsened. She has been in a wheelchair largely since the fracture happened. She admits to some walking on the foot in the posterior splint with her walker at times. Patient relates a short course of antibiotics for UTI. Patient has severe neuropathy which has not helped the patient as she no longer feels significant pain and that is likely why she walked on it. Patient reports a hemoglobin A1c of 14 at her last appointment. A review of the chart found that the patient was seen for ankle fracture at the [facility] on June 21, 2020 at which time she was splinted and was instructed to follow-up with Ortho. There is discussion in the notes at that time about allowing the wound to her medial malleolus to heal prior to undergoing surgery and that at that time the wound was superficial in nature. She was also admitted for EKG changes from 06/24/20 to 06/27/20. For whatever reason patient did not obtain follow-up afterwards. Patient was also noted to have a hemoglobin A1c of 11.1 on 06/27/2020 after discussion with patient's nurse at [facility] [place]. Nurse also related that the patient is supposed to be WNB but has been found walking with her walker or putting weight through her left foot for transfers. [] Past Medical History Past Medical History (Chronic Problems): Chronic Problems (Last Reviewed 08/04/20 @ 21:07 by Zuleyka Donald, MANDI-C) Schizophrenia (Chronic) COPD (chronic obstructive pulmonary disease) (Chronic) Open wound of left lower extremity with complication (Chronic) Displaced bimalleolar fracture of left lower leg, initial encounter for open fracture type IIIA, IIIB, or IIIC (Chronic) 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) Diabetes (Chronic) Blind left eye (Chronic) Type II diabetes mellitus (Chronic) Depression (Chronic) Anxiety (Chronic) Peripheral neuropathy (Chronic) Hyperosmolar hyponatremia (Chronic) Medical History: Medical History (Last Reviewed 08/04/20 @ 21:07 by Zuleyka Donald, MANDI-C) Fibromyalgia M79.7 Schizophrenia F20.9 Allergies Sulfa (Sulfonamide Antibiotics) Allergy (Verified 08/04/20 17:07) Hives Home Medications: Ambulatory Orders Medication Instructions Recorded Oxybutynin Chloride [Ditropan Xl] 5 mg PO BID 06/10/17 Duloxetine Hcl [Cymbalta] 30 mg PO BID 10/24/19 Acetaminophen [Tylenol] 500 mg PO TID 06/23/20 Ascorbic Acid 500 mg PO DAILY 08/04/20 Docusate Sodium 100 mg PO BID 08/04/20 Ergocalciferol (Vitamin D2) 50,000 unit PO FR 08/04/20 [Vitamin D2] Furosemide [Lasix] 40 mg PO DAILY 08/04/20 Insulin Glargine,Hum.rec.anlog 22 unit SQ BID 08/04/20 [Lantus] Insulin Lispro Protamin/Lispro 13 unit SQ TIDCM 08/04/20 [Humalog Mix 50-50 Vial] Insulin Lispro [Humalog] See Protocol SQ TIDCM 08/04/20 Levetiracetam [Keppra] 500 mg PO BID 08/04/20 M-Vit,Tx,Iron,Mins/Calc/Folic 1 tablet PO DAILY 08/04/20 [Thera-M Caplet] Multivit,Stress Formula/Zinc 1 tablet PO BID 08/04/20 [Stress Formula with Zinc Tab] Oxycodone HCl 5 mg PO Q4H PRN PRN 08/04/20 Prazosin HCl 2 mg PO QHS 08/04/20 Pregabalin [Lyrica] 100 mg PO BID 08/04/20 Risperidone 0.25 mg PO BID 08/04/20 Surgical History: cholecystectomy, - - Tubal ligation. 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 Significant other not available to provide history. Paternal History Items: - - Paternal history was unable to be obtained because of confusion. Significant other not available to provide history. Review of Systems Constitutional: Denies: Chills, Fever HEENT: Denies: Difficulty Hearing Cardiovascular: Denies: Chest Pain Respiratory: Denies: Cough, Shortness of Breath Musculoskeletal: Reports: Foot Pain - left ankle, Joint Tenderness Skin: Reports: Wounds - left medial ankle Neurological: Reports: Numbness, Tingling Patient Problems: Active and Suspected Problems (Last Reviewed 08/04/20 @ 21:07 by Zuleyka Donald, BOILER TUBE BLOWER-C) Hypoxia (Acute) secondary to COPD with altered mental status Open left ankle fracture (Acute) Leukocytosis (Acute) - Physical Exam Vitals/I&O's: Vital Signs Temp Pulse Resp BP Pulse Ox 98.0 F 82 16 135/72 H 95 08/04/20 20:54 08/04/20 20:54 08/04/20 20:54 08/04/20 20:54 08/04/20 20:54 Oxygen Flow Rate (L/min) 3 Oxygen Delivery Method Nasal Cannula Weight: 86.5 kg Body Mass Index (BMI) 31.2 Finger Stick Blood Glucose 123 Intake and Output for Last 24 Hours 08/02/20 08/03/20 08/04/20 23:59 23:59 23:59 Intake Total 100 / 100 Balance 100 / 100 General: Alert, Oriented x3, Cooperative HEENT: Atraumatic Abdomen: Obese Extremities: No clubbing, Capillary Refill Less than 3 Seconds, Cyanosis - slight palor noted periwound area medial malleolus left, Edema - left ankle, Peripheral Pulses Normal, Tenderness - to calf and ulcer on palpation Skin: Ulcer/ Wound - left medial ankle ulcer. Probes to bone/ankle joint. Moderate joint fluid and serosanginous drainage noted.Granular base. No malodor, no crepitus. Pain with palpation and with ROM. Skin warm. Minor palor/cynosis noted to periwound. Musculoskeletal: Muscle Wasting - in wheelchair, Tenderness Neurological: - - absent light touch sensation noted consistent with patient's neuropathy Psych/Mental Status: Normal Affect, Appropriate Microbiology Past 72 Hours 08/04/20 18:00 Mucosa - Nose SARS-CoV-2 Antigen (Rapid) - Final Laboratory Results 08/04/20 17:50: WBC 11.1 H, RBC 4.34, Hgb 11.3 L, Hct 40.0, MCV 92.2, MCH 26.0 L, MCHC 28.3 L, RDW Std Deviation 54.6 H, RDW Coeff of Krista 16.2 H, Plt Count 517 H, MPV 10.1, Immature Gran % (Auto) 0.800, Neut % (Auto) 74.6 H, Lymph % (Auto) 13.8 L, [place] % (Auto) 7.1, Eos % (Auto) 3.1, Baso % (Auto) 0.6, Absolute Neuts (auto) 8.3 H, Absolute Lymphs (auto) 1.53, Nucleated RBC % 0 08/04/20 17:50: PT 13.6, INR 1.1, APTT 33.7 08/04/20 17:50: Sodium 141, Potassium 4.9, Chloride 107, Carbon Dioxide 33.0 H, Anion Gap 1 L, BUN 30 H, Creatinine 1.27 H, Estim Creat Clear Calc 46.63, Est GFR (MDRD) Af Amer 57 L, Est GFR (MDRD) Non-Af 47 L, BUN/Creatinine Ratio 23.6 H, Glucose 74, Calcium 8.8, Total Bilirubin 0.20, AST 7 L, ALT 13, Alkaline Phosphatase 122 H, Total Protein 7.6, Albumin 2.0 L, Globulin 5.6 H, Albumin/Globulin Ratio 0.4 L 08/04/20 17:50: Ethyl Alcohol < 3.0 08/04/20 17:50: Lactic Acid 0.6 08/04/20 17:50: Hemoglobin A1c 8.0 H 08/04/20 19:30: Urine Opiates Screen NEGATIVE, Urine Methadone Screen NEGATIVE, Ur Barbiturates Screen NEGATIVE, Ur Phencyclidine Scrn NEGATIVE, Ur Amphetamines Screen NEGATIVE, U Methamphetamin-MDMA NEGATIVE, U Benzodiazepines Scrn NEGATIVE, Urine Cocaine Screen NEGATIVE, U Cannabinoids Screen NEGATIVE, Ur Drug Screen Comment Current Medications Acetaminophen (Acetaminophen 325 Mg Tablet) 650 mg PO Q6H PRN PRN PRN Reason: Pain Score 1-10/Temp > 100.7 F Ascorbic Acid (Ascorbic Acid 500 Mg Tablet) 500 mg PO DAILY [facility] Docusate Sodium (Docusate Sodium 100 Mg Capsule) 100 mg PO BID PRN PRN PRN Reason: Constipation Doxazosin Mesylate (Doxazosin 1 Mg Tablet) 2 mg PO QHS [facility] Duloxetine HCl (Duloxetine Hcl 30 Mg Capsule) 30 mg PO BID [facility] Ergocalciferol (Ergocalciferol 50,000 Unit Capsule) 50,000 unit PO Fr@1000 [facility] Furosemide (Furosemide 40 Mg Tablet) 40 mg PO DAILY [facility] Sodium Chloride () 1,000 mls @ 100 mls/hr IV .Q10H [facility] Last Admin: 08/04/20 21:07 Dose: 100 mls/hr Documented by: Piperacillin Sod/Tazobactam (Sod 3.375 gm/ Sodium Chloride) 50 mls @ 12.5 mls/hr IV Q8 [facility] Vancomycin IV Pharmacy to Dose (1 each/ Sodium Chloride) 500 mls @ 250 mls/hr IV X1 PRN; Protocol PRN Reason: Rx to Dose Vancomycin HCl (Vancomycin) 1,000 mg in 200 mls @ 200 mls/hr IV Q12H [facility] Insulin Glargine (Insulin Glargine 100 Units/Ml Pen) 22 units SC 1100,2200 [facility] Insulin Human Lispro (Insulin Lispro 100 Unit/Ml Insuln.Pen) 0 unit SC ACHS [facility]; Protocol Insulin Human Lispro (Insulin Lispro 100 Unit/Ml Insuln.Pen) 13 unit SC 0800,1200,1700 [facility] Levetiracetam (Levetiracetam 500 Mg Tablet) 500 mg PO BID [facility] Morphine Sulfate (Morphine 2 Mg/Ml Syringe) 2 mg IV Q3H PRN PRN PRN Reason: Pain Score 6-10 Ondansetron HCl (Ondansetron 4 Mg/2 Ml Vial) 4 mg IV Q8H PRN PRN PRN Reason: NAUSEA/VOMITING Oxycodone HCl (Oxycodone 5 Mg Tablet) 5 mg PO Q4H PRN PRN PRN Reason: Pain Score 4-5 Pregabalin (Pregabalin 50 Mg Capsule) 100 mg PO BID [facility] Risperidone (Risperidone 0.25 Mg Tablet) 0.25 mg PO BID [facility] Tolterodine Tartrate (Tolterodine Tartrate 2 Mg Cap.Sa) 2 mg PO DAILY [facility] Assessment/Plan All Active Problems (Last Reviewed 08/04/20 @ 21:07 by Zuleyka Donald, BOILER TUBE BLOWER-C) Acute electrocardiogram changes (Acute) Hypoxia (Acute) Fracture tibia/fibula (Acute) Open left ankle fracture (Acute) Hyperglycemia (Acute) Dehydration (Acute) Leukocytosis (Acute) Altered level of consciousness (Acute) Hyperglycemia due to type 2 diabetes mellitus (Acute) Hypoxemia (Acute) MICHELE (acute kidney injury) (Acute) HHNC (hyperglycemic hyperosmolar nonketotic coma) (Acute) left ankle neglected open bimalleolar fracture-possible infection left medial ankle ulcer to bone/joint cellulitis left lower extremity DM2 with neuropathy Hx schizophrenia Patient was seen and examined today. There is noted medial malleolus ulceration that probes to bone and ankle joint. There is joint fluid expressing from the wound along with serous sanguinous drainage. A culture was obtained in office. Medial malleolus is easily palpable. There is some pallor and discoloration to the periwound area. DP and PT pulses were palpable and were triphasic at DP and biphasic at PT on Doppler exam. Unsure of length of fracture being open. Fracture happened Jun 21, 2020 from fall. New x-rays were obtained in office of the ankle which showed dislocated ankle tibiotalar joint with medial malleolus and lateral malleolus displaced fractures with some evidence of consolidation. The ankle is dislocated. I reviewed the x-rays with the patient. Discussed that given the length of time since the fracture as well as the open nature and the ability to probe to bone through the wound that this was considered a very highly unstable ankle fracture that needed immediate attention. Patient was sent from the office to the emergency department for admittance. Discussed with the patient the need to undergo surgery in order to stabilize her ankle reduce the fracture. Discussed that she is at high risk for bone infection and amputation of her leg. Discussed that it would likely take multiple surgeries in order to clean out the infection and to fix her ankle. Discussed possibility of utilizing a frame to provide stability. Discussed going to surgery tomorrow to allow for further stabilization prior to surgery. Patient to undergo surgery pending surgical clearance and OR availability. Discussed with patient the need to be on antibiotics in order to help control any soft tissue and/or bone infection. Patient relates only being on Augmentin for about a week for UTI since the fracture happened. Follow wound and blood cultures. Would recommend ID consult to help manage fci open fracture nature Continue antibiotics NPO after midnight. Will see patient in morning to further discuss surgery. Patient noted to have blood work on 08/04/2020 demonstrating hemoglobin A1c of 8.0, WBC 11.1 ESR/CRP pending All questions answered. Thank you for the consult. Please contact if any questions or concerns Keena Doyle DPM [facility] [phone]
[2020-08-04] MEDS: Pregabalin 50 MG Capsule 100 MG PO (21:53)
[2020-08-04] MEDS: RisperiDONE 0.25 MG Tablet PO (21:55)
[2020-08-04] MEDS: Doxazosin 1 MG Tablet 2 MG PO (21:56)
[2020-08-04] MEDS: levETIRAcetam 500 MG Tablet PO (21:56)
[2020-08-04] MEDS: DULoxetine Hcl 30 MG Capsule PO (21:57)
[2020-08-04] MEDS: oxyCODONE 5 MG Tablet PO (22:03)
[2020-08-04 22:36] LABS: Bedside Glucose 68 mg/dL (70-110)
[2020-08-04 22:36] LABS: Bedside Glucose 61 mg/dL (70-110)
[2020-08-04 23:06] LABS: Bedside Glucose 106 mg/dL (70-110)
[2020-08-04 23:44] LABS: Erythrocyte Sedimentation Rate > 130 mm/hr (0-30)
[2020-08-05] VITALS (12 sets, daily range): BP systolic 125–134; BP diastolic 71–83; PULSE 71–85; RESP 18; TEMP 36.3–36.9; O2SAT 93–97; BMI 31.4
[2020-08-05] MEDS: oxyCODONE 5 MG Tablet PO ×2 (02:49→19:44)
[2020-08-05] MEDS: Vancomycin IV 1,000 MG/200 ML BAG 200 MG IV ×2 (06:16→18:47)
[2020-08-05] MEDS: Morphine 2 MG/ML Syringe IV ×3 (06:17→21:23)
[2020-08-05 06:35] LABS: Absolute Lymphocyte Count 1.82 X10^3/uL (0.83-4.51); Absolute Neutrophil Count 6.7 X10^3/uL (2.0-7.7); Basophil# 0.04 X10^3/uL; Basophil% 0.4 % (0-1); Eosinophil# 0.39 X10^3/uL; Eosinophils% 3.9 % (0-5); Hematocrit 35.8 % (37-47); Hemoglobin 10.3 g/dL (12.0-15.0); Lymphocyte # 1.82 X10^3/ul (4.0); Lymphocyte % 18.4 % (19-41); Mean Corp Hgb Conc 28.8 g/dL (32-36); Mean Corpuscular Hgb 26.4 pg (27.0-32.0); Mean Corpuscular Volume 91.8 fL (81-99); Mean Platelet Vol. 9.9 fl (6.2-12.0); Monocyte# 0.86 X10^3/uL; Monocyte% 8.7 % (0-10); NRBC Flagged by Analyzer 0 % (0-5); Neutrophil # 6.73 X10^3/uL (2.7-7.7); Platelet Count 446 K/mm3 (150-450); RBC Distribution Width SD 53.7 fl (35.1-43.9); White Blood Count 9.9 K/mm3 (4.4-11.0)
[2020-08-05 06:41] LABS: International Normalized Ratio 1.1; Prothrombin Time (Protime)PT. 13.9 SECONDS (11.7-14.9)
[2020-08-05 06:55] LABS: Anion Gap 3 (5-15); BUN 24 mg/dL (7-18); BUN/Creat Ratio 23.8 RATIO (10-20); Calcium,Total 8.2 mg/dL (8.5-10.1); Chloride 109 mmol/L (98-107); Creatinine, Serum 1.01 mg/dL (0.55-1.02); EST Glomerular Filtration Rate 61 mL/min (>60); Est Glom Filt Rate - Afr Amer 74 mL/min (>60); Estimated Creatinine Clearance 58.63 ml/min; Glucose 79 mg/dL (74-106); Potassium 4.6 mmol/L (3.5-5.1); Sodium Level 142 mmol/L (136-145)
[2020-08-05] MEDS: 0.9% Normal Saline 1,000 ML 100 ML IV (07:47)
[2020-08-05 08:05] LABS: Bedside Glucose 75 mg/dL (70-110)
--- NOTE | 2020-08-05 08:52 | PN_ITS ---
Patient Problems: Active and Suspected Problems (Last Reviewed 08/04/20 @ 21:07 by Zuleyka Donald, AEROPHYSICS ENGINEER-C) Hypoxia (Acute) secondary to COPD with altered mental status Open left ankle fracture (Acute) Leukocytosis (Acute) Subjective: Patient seen and examined resting comfortably. Patient denies any new pedal complaints. Patient denies any nausea, fever, chills, chest pain, shortness of breath, cough, streaking, purulence, vomiting. Patient has questions regarding surgery and healing of her ankle. Relates some pain overnight that has been well controlled - Physical Exam Vitals/I&O's: Vital Signs Temp Pulse Resp BP Pulse Ox 98.2 F 76 18 130/78 H 93 08/05/20 08:30 08/05/20 08:30 08/05/20 08:30 08/05/20 08:30 08/05/20 08:30 Oxygen Flow Rate (L/min) 2 Oxygen Delivery Method Nasal Cannula Weight: 86.5 kg Body Mass Index (BMI) 31.2 Finger Stick Blood Glucose 123 Intake and Output for Last 24 Hours 08/03/20 08/04/20 08/05/20 23:59 23:59 23:59 Intake Total 640 / 1140 1750 / 1750 Output Total 500 / 500 Balance 640 / 1140 1250 / 1250 General: Alert, Oriented x3, Cooperative HEENT: Atraumatic Abdomen: Obese Extremities: - - Posterior splint noted to left lower extremity clean dry intact. Capillary refill time to all digits less than 3 seconds Skin: Ulcer/ Wound - Medial left ankle ulcer probes to bone. Currently covered by splint Musculoskeletal: Tenderness - Left ankle joint Neurological: - - Decrease in epicritic sensation consistent with neuropathy Psych/Mental Status: Normal Affect, Appropriate Microbiology Past 72 Hours 08/04/20 18:00 Mucosa - Nose SARS-CoV-2 Antigen (Rapid) - Final Laboratory Results 08/04/20 17:50: WBC 11.1 H, RBC 4.34, Hgb 11.3 L, Hct 40.0, MCV 92.2, MCH 26.0 L , MCHC 28.3 L, RDW Std Deviation 54.6 H, RDW Coeff of Krista 16.2 H, Plt Count 517 H, MPV 10.1, Immature Gran % (Auto) 0.800, Neut % (Auto) 74.6 H, Lymph % (Auto) 13.8 L, [place] % (Auto) 7.1, Eos % (Auto) 3.1, Baso % (Auto) 0.6, Absolute Neuts (auto) 8.3 H, Absolute Lymphs (auto) 1.53, Nucleated RBC % 0 08/04/20 17:50: PT 13.6, INR 1.1, APTT 33.7 08/04/20 17:50: Sodium 141, Potassium 4.9, Chloride 107, Carbon Dioxide 33.0 H, Anion Gap 1 L, BUN 30 H, Creatinine 1.27 H, Estim Creat Clear Calc 46.63, Est GFR (MDRD) Af Amer 57 L, Est GFR (MDRD) Non-Af 47 L, BUN/Creatinine Ratio 23.6 H , Glucose 74, Calcium 8.8, Total Bilirubin 0.20, AST 7 L, ALT 13, Alkaline Phosphatase 122 H, Total Protein 7.6, Albumin 2.0 L, Globulin 5.6 H, Albumin/Globulin Ratio 0.4 L 08/04/20 17:50: Ethyl Alcohol < 3.0 08/04/20 17:50: Lactic Acid 0.6 08/04/20 17:50: Hemoglobin A1c 8.0 H 08/04/20 17:50: ESR > 130 H 08/04/20 17:50: C-React Prot Ext Range 39.50 H 08/04/20 19:30: Urine Opiates Screen NEGATIVE, Urine Methadone Screen NEGATIVE, Ur Barbiturates Screen NEGATIVE, Ur Phencyclidine Scrn NEGATIVE, Ur Amphetamines Screen NEGATIVE, U Methamphetamin-MDMA NEGATIVE, U Benzodiazepines Scrn NEGATIVE, Urine Cocaine Screen NEGATIVE, U Cannabinoids Screen NEGATIVE, Ur Drug Screen Comment 08/04/20 21:48: POC Glucose 68 L 08/04/20 22:27: POC Glucose 61 L 08/04/20 22:59: POC Glucose 106 08/05/20 06:12: WBC 9.9, RBC 3.90 L, Hgb 10.3 L, Hct 35.8 L, MCV 91.8, MCH 26.4 L, MCHC 28.8 L, RDW Std Deviation 53.7 H, RDW Coeff of Krista 16.0 H, Plt Count 446, MPV 9.9, Immature Gran % (Auto) 0.600, Neut % (Auto) 68.0, Lymph % (Auto) 18.4 L, [place] % (Auto) 8.7, Eos % (Auto) 3.9, Baso % (Auto) 0.4, Absolute Neuts (auto) 6.7, Absolute Lymphs (auto) 1.82, Nucleated RBC % 0 08/05/20 06:12: PT 13.9, INR 1.1 08/05/20 06:12: Sodium 142, Potassium 4.6, Chloride 109 H, Carbon Dioxide 30.0, Anion Gap 3 L, BUN 24 H, Creatinine 1.01, Estim Creat Clear Calc 58.63, Est GFR (MDRD) Af Amer 74, Est GFR (MDRD) Non-Af 61, BUN/Creatinine Ratio 23.8 H, Glucose 79, Calcium 8.2 L 08/05/20 07:51: POC Glucose 75 Current Medications Acetaminophen (Acetaminophen 325 Mg Tablet) 650 mg PO Q6H PRN PRN PRN Reason: Pain Score 1-10/Temp > 100.7 F Ascorbic Acid (Ascorbic Acid 500 Mg Tablet) 500 mg PO DAILY [facility] Docusate Sodium (Docusate Sodium 100 Mg Capsule) 100 mg PO BID PRN PRN PRN Reason: Constipation Doxazosin Mesylate (Doxazosin 1 Mg Tablet) 2 mg PO QHS [facility] Last Admin: 08/04/20 21:56 Dose: 2 mg Documented by: Duloxetine HCl (Duloxetine Hcl 30 Mg Capsule) 30 mg PO BID [facility] Last Admin: 08/04/20 21:57 Dose: 30 mg Documented by: Ergocalciferol (Ergocalciferol 50,000 Unit Capsule) 50,000 unit PO Fr@1000 [facility] Furosemide (Furosemide 40 Mg Tablet) 40 mg PO DAILY [facility] Sodium Chloride () 1,000 mls @ 100 mls/hr IV .Q10H [facility] Last Admin: 08/05/20 07:47 Dose: 100 mls/hr Documented by: Piperacillin Sod/Tazobactam (Sod 3.375 gm/ Sodium Chloride) 50 mls @ 12.5 mls/hr IV Q8 [facility] Last Admin: 08/05/20 05:11 Dose: 12.5 mls/hr Documented by: Vancomycin IV Pharmacy to Dose (1 each/ Sodium Chloride) 500 mls @ 250 mls/hr IV X1 PRN; Protocol PRN Reason: Rx to Dose Vancomycin HCl (Vancomycin) 1,000 mg in 200 mls @ 200 mls/hr IV Q12H [facility] Last Infusion: 08/05/20 07:16 Dose: Infused Documented by: Insulin Glargine (Insulin Glargine 100 Units/Ml Pen) 22 units SC 1100,2200 [facility] Last Admin: 08/04/20 21:50 Dose: Not Given Documented by: Insulin Human Lispro (Insulin Lispro 100 Unit/Ml Insuln.Pen) 0 unit SC ACHS [facility]; Protocol Last Admin: 08/05/20 07:52 Dose: Not Given Documented by: Insulin Human Lispro (Insulin Lispro 100 Unit/Ml Insuln.Pen) 13 unit SC 0800,1200,1700 [facility] Last Admin: 08/05/20 07:52 Dose: Not Given Documented by: Levetiracetam (Levetiracetam 500 Mg Tablet) 500 mg PO BID [facility] Last Admin: 08/04/20 21:56 Dose: 500 mg Documented by: Morphine Sulfate (Morphine 2 Mg/Ml Syringe) 2 mg IV Q3H PRN PRN PRN Reason: Pain Score 6-10 Last Admin: 08/05/20 06:17 Dose: 2 mg Documented by: Ondansetron HCl (Ondansetron 4 Mg/2 Ml Vial) 4 mg IV Q8H PRN PRN PRN Reason: NAUSEA/VOMITING Oxycodone HCl (Oxycodone 5 Mg Tablet) 5 mg PO Q4H PRN PRN PRN Reason: Pain Score 4-5 Last Admin: 08/05/20 02:49 Dose: 5 mg Documented by: Pregabalin (Pregabalin 50 Mg Capsule) 100 mg PO BID [facility] Last Admin: 08/04/20 21:53 Dose: 100 mg Documented by: Risperidone (Risperidone 0.25 Mg Tablet) 0.25 mg PO BID [facility] Last Admin: 08/04/20 21:55 Dose: 0.25 mg Documented by: Tolterodine Tartrate (Tolterodine Tartrate 2 Mg Cap.Sa) 2 mg PO DAILY [facility] Medical Necessity - Tobacco Use Smoking Status: Current every day smoker Tobacco Use: Cigarettes Assessment/Plan All Active Problems (Last Reviewed 08/04/20 @ 21:07 by Zuleyka Donald NP-C) Acute electrocardiogram changes (Acute) Hypoxia (Acute) Fracture tibia/fibula (Acute) Open left ankle fracture (Acute) Hyperglycemia (Acute) Dehydration (Acute) Leukocytosis (Acute) Altered level of consciousness (Acute) Hyperglycemia due to type 2 diabetes mellitus (Acute) Hypoxemia (Acute) MICHELE (acute kidney injury) (Acute) HHNC (hyperglycemic hyperosmolar nonketotic coma) (Acute) left ankle neglected open bimalleolar fracture-likely infection/osteomyelitis left medial ankle ulcer to bone/joint cellulitis left lower extremity DM2 with neuropathy Hx schizophrenia Patient was seen and examined today. CT of left ankle fracture reviewed Given the patient's history and history of the wound this is a similar presentation as a charcot ankle presentation. This would be considered as a limb salvage case. Discussed with the patient at length surgical options. Discussed delta frame, circular external fixator, internal fixation, and below knee amputation options. Discussed that this would be a staged procedure. Discussed recommendation for an ankle fusion given fracture severity and length of time since surgery. Discussed with the patient at length that she is at a high risk for an amputation. Discussed at length the healing time requirements for any option as well as the pros and cons of each option. Discussed importance of NWB, blood sugar control, smoking cessation, and proper diet on wound healing. After discussion patient decided to utilize a ring external fixator for her ankle fusion. This means that today we will be planning on cleaning out the open ankle wound culturing it and reducing the ankle. Plan for application of the external fixator device later this week likely Tuesday. Discussed having Dr Allred assist in the case. Discussed risk of COVID-19 exposure. Discussed all risks, benefits, alternatives, and complications including but not limited to infection delayed healing nonhealing need for further surgery with the patient. No guarantees were given or implied. Patient agreed to proceed with the procedure. All questions answered. Follow wound and blood cultures. Continue antibiotics. I would recommend ID consult to help manage antibiotics given correction open fracture with possibility of osteomyelitis NPO, plan for surgery later today with expected staged procedure later this week Patient noted to have blood work demonstrating hemoglobin A1c of 8.0, WBC 9.9, ESR >130, CRP 39.5 All questions answered. Please contact if any questions or concerns Keena Doyle DPM [facility] [phone]
--- NOTE | 2020-08-05 09:35 | NURSING ---
wound photo: left medial ankle
--- NOTE | 2020-08-05 10:10 | PN_ITS ---
Patient Problems: Active and Suspected Problems (Last Reviewed 08/04/20 @ 21:07 by Zuleyka Donald, MODELING DIRECTOR-C) Hypoxia (Acute) secondary to COPD with altered mental status Open left ankle fracture (Acute) Leukocytosis (Acute) Subjective: Patient seen and examined. She was admitted for a nonhealing wound to the left ankle which resulted after she sustained a fracture of her ankle in June. She had been nonweightbearing on the affected ankle. She was seen by podiatry and plan is for surgery today. Patient seen and examined. She complains of pain in the ankle. Review of symptoms otherwise negative. She has remained hemodynamically stable. She is currently n.p.o., for surgery today. Vitals/I&O's: Vital Signs Temp Pulse Resp BP Pulse Ox 98.2 F 76 18 130/78 H 93 08/05/20 08:30 08/05/20 08:30 08/05/20 08:30 08/05/20 08:30 08/05/20 08:30 Oxygen Flow Rate (L/min) 2 Oxygen Delivery Method Nasal Cannula Weight: 190 lb 11.198 oz Body Mass Index (BMI) 31.2 Finger Stick Blood Glucose 123 Intake and Output for Last 24 Hours 08/03/20 08/04/20 08/05/20 23:59 23:59 23:59 Intake Total 640 / 1140 1750 / 1750 Output Total 500 / 500 Balance 640 / 1140 1250 / 1250 General: Alert, Oriented x3, Cooperative, No apparent distress HEENT: Atraumatic, PERRLA, EOMI, Normocephalic Oral: Dry Mucosa Neck: Supple, No JVD, Negative Carotid Bruits Lungs: - - diminished breath sounds bibasally, no wheezes or crackles. on 2L of oxygen Cardiovascular: Regular rate, Regular Rhythm, Normal S1, Normal S2, No murmurs Abdomen: Bowel Sounds Present, Soft, Non Tender, Non-Distended, No Hepato- splenomegaly Extremities: No clubbing, No cyanosis, No edema, Capillary Refill Less than 3 Seconds Skin: - - large ulceration on the left ankle, over the medial malleolus, has greenish tinged slough in the floor of the ulcer. has surrounding swelling and erythema Musculoskeletal: No Tenderness to Palpation of Joints or Extremities Lymphatic: No Cervical, Supraclavicular, or Inguinal Adenopathy Neurological: Cranial nerves II-XII grossly intact, Neuro grossly intact, Motor Exam 5/5 strength throughout Psych/Mental Status: Normal Affect, Appropriate, Alert and oriented to time, place, person, mood and affect Microbiology Past 72 Hours 08/04/20 18:00 Mucosa - Nose SARS-CoV-2 Antigen (Rapid) - Final Laboratory Results 08/04/20 17:50: WBC 11.1 H, RBC 4.34, Hgb 11.3 L, Hct 40.0, MCV 92.2, MCH 26.0 L , MCHC 28.3 L, RDW Std Deviation 54.6 H, RDW Coeff of Krista 16.2 H, Plt Count 517 H, MPV 10.1, Immature Gran % (Auto) 0.800, Neut % (Auto) 74.6 H, Lymph % (Auto) 13.8 L, [place] % (Auto) 7.1, Eos % (Auto) 3.1, Baso % (Auto) 0.6, Absolute Neuts (auto) 8.3 H, Absolute Lymphs (auto) 1.53, Nucleated RBC % 0 08/04/20 17:50: PT 13.6, INR 1.1, APTT 33.7 08/04/20 17:50: Sodium 141, Potassium 4.9, Chloride 107, Carbon Dioxide 33.0 H, Anion Gap 1 L, BUN 30 H, Creatinine 1.27 H, Estim Creat Clear Calc 46.63, Est GFR (MDRD) Af Amer 57 L, Est GFR (MDRD) Non-Af 47 L, BUN/Creatinine Ratio 23.6 H , Glucose 74, Calcium 8.8, Total Bilirubin 0.20, AST 7 L, ALT 13, Alkaline Phosphatase 122 H, Total Protein 7.6, Albumin 2.0 L, Globulin 5.6 H, Albumin/Globulin Ratio 0.4 L 08/04/20 17:50: Ethyl Alcohol < 3.0 08/04/20 17:50: Lactic Acid 0.6 08/04/20 17:50: Hemoglobin A1c 8.0 H 08/04/20 17:50: ESR > 130 H 08/04/20 17:50: C-React Prot Ext Range 39.50 H 08/04/20 19:30: Urine Opiates Screen NEGATIVE, Urine Methadone Screen NEGATIVE, Ur Barbiturates Screen NEGATIVE, Ur Phencyclidine Scrn NEGATIVE, Ur Amphetamines Screen NEGATIVE, U Methamphetamin-MDMA NEGATIVE, U Benzodiazepines Scrn NEGATIVE, Urine Cocaine Screen NEGATIVE, U Cannabinoids Screen NEGATIVE, Ur Drug Screen Comment 08/04/20 21:48: POC Glucose 68 L 08/04/20 22:27: POC Glucose 61 L 08/04/20 22:59: POC Glucose 106 08/05/20 06:12: WBC 9.9, RBC 3.90 L, Hgb 10.3 L, Hct 35.8 L, MCV 91.8, MCH 26.4 L, MCHC 28.8 L, RDW Std Deviation 53.7 H, RDW Coeff of Krista 16.0 H, Plt Count 446, MPV 9.9, Immature Gran % (Auto) 0.600, Neut % (Auto) 68.0, Lymph % (Auto) 18.4 L, [place] % (Auto) 8.7, Eos % (Auto) 3.9, Baso % (Auto) 0.4, Absolute Neuts (auto) 6.7, Absolute Lymphs (auto) 1.82, Nucleated RBC % 0 08/05/20 06:12: PT 13.9, INR 1.1 08/05/20 06:12: Sodium 142, Potassium 4.6, Chloride 109 H, Carbon Dioxide 30.0, Anion Gap 3 L, BUN 24 H, Creatinine 1.01, Estim Creat Clear Calc 58.63, Est GFR (MDRD) Af Amer 74, Est GFR (MDRD) Non-Af 61, BUN/Creatinine Ratio 23.8 H, Glucose 79, Calcium 8.2 L 08/05/20 07:51: POC Glucose 75 Diagnostic Data Lower Extremity CT 08/04/20 17:28 IMPRESSION: Severely comminuted and displaced fractures of the medial and lateral malleoli with incomplete healing as well as tibiotalar dislocation. Electronically Signed: Edgar Mendoza MD at 18:43 EDT Tel , Service support , Chest X-Ray 08/04/20 18:20 IMPRESSION: Right lower lobe infiltrate or atelectasis. Discoid atelectasis in left lower lobe Electronically Signed: Luther Santos MD at 18:54 EDT , Service support , Current Medications Acetaminophen (Acetaminophen 325 Mg Tablet) 650 mg PO Q6H PRN PRN PRN Reason: Pain Score 1-10/Temp > 100.7 F Ascorbic Acid (Ascorbic Acid 500 Mg Tablet) 500 mg PO DAILY [facility] Docusate Sodium (Docusate Sodium 100 Mg Capsule) 100 mg PO BID PRN PRN PRN Reason: Constipation Doxazosin Mesylate (Doxazosin 1 Mg Tablet) 2 mg PO QHS [facility] Last Admin: 08/04/20 21:56 Dose: 2 mg Documented by: Duloxetine HCl (Duloxetine Hcl 30 Mg Capsule) 30 mg PO BID [facility] Last Admin: 08/04/20 21:57 Dose: 30 mg Documented by: Ergocalciferol (Ergocalciferol 50,000 Unit Capsule) 50,000 unit PO Fr@1000 [facility] Furosemide (Furosemide 40 Mg Tablet) 40 mg PO DAILY [facility] Sodium Chloride () 1,000 mls @ 100 mls/hr IV .Q10H [facility] Last Admin: 08/05/20 07:47 Dose: 100 mls/hr Documented by: Piperacillin Sod/Tazobactam (Sod 3.375 gm/ Sodium Chloride) 50 mls @ 12.5 mls/hr IV Q8 [facility] Last Admin: 08/05/20 05:11 Dose: 12.5 mls/hr Documented by: Vancomycin IV Pharmacy to Dose (1 each/ Sodium Chloride) 500 mls @ 250 mls/hr IV X1 PRN; Protocol PRN Reason: Rx to Dose Vancomycin HCl (Vancomycin) 1,000 mg in 200 mls @ 200 mls/hr IV Q12H [facility] Last Infusion: 08/05/20 07:16 Dose: Infused Documented by: Insulin Glargine (Insulin Glargine 100 Units/Ml Pen) 22 units SC 1100,2200 [facility] Last Admin: 08/04/20 21:50 Dose: Not Given Documented by: Insulin Human Lispro (Insulin Lispro 100 Unit/Ml Insuln.Pen) 0 unit SC ACHS [facility]; Protocol Last Admin: 08/05/20 07:52 Dose: Not Given Documented by: Insulin Human Lispro (Insulin Lispro 100 Unit/Ml Insuln.Pen) 13 unit SC 0800,1200,1700 [facility] Last Admin: 08/05/20 07:52 Dose: Not Given Documented by: Levetiracetam (Levetiracetam 500 Mg Tablet) 500 mg PO BID [facility] Last Admin: 08/04/20 21:56 Dose: 500 mg Documented by: Morphine Sulfate (Morphine 2 Mg/Ml Syringe) 2 mg IV Q3H PRN PRN PRN Reason: Pain Score 6-10 Last Admin: 08/05/20 06:17 Dose: 2 mg Documented by: Ondansetron HCl (Ondansetron 4 Mg/2 Ml Vial) 4 mg IV Q8H PRN PRN PRN Reason: NAUSEA/VOMITING Oxycodone HCl (Oxycodone 5 Mg Tablet) 5 mg PO Q4H PRN PRN PRN Reason: Pain Score 4-5 Last Admin: 08/05/20 02:49 Dose: 5 mg Documented by: Pregabalin (Pregabalin 50 Mg Capsule) 100 mg PO BID [facility] Last Admin: 08/04/20 21:53 Dose: 100 mg Documented by: Risperidone (Risperidone 0.25 Mg Tablet) 0.25 mg PO BID [facility] Last Admin: 08/04/20 21:55 Dose: 0.25 mg Documented by: Tolterodine Tartrate (Tolterodine Tartrate 2 Mg Cap.Sa) 2 mg PO DAILY [facility] STROKE Vital Signs/Narrative: Vital Signs Temp Pulse Resp BP Pulse Ox 08/05/20 08:30 98.2 F 76 18 130/78 H 93 Medical Necessity - Tobacco Use Smoking Status: Current every day smoker Tobacco Use: Cigarettes Assessment/Plan All Active Problems (Last Reviewed 08/04/20 @ 21:07 by Zuleyka Donald, MODELING DIRECTOR-C) Acute electrocardiogram changes (Acute) Hypoxia (Acute) Fracture tibia/fibula (Acute) Open left ankle fracture (Acute) Hyperglycemia (Acute) Dehydration (Acute) Leukocytosis (Acute) Altered level of consciousness (Acute) Hyperglycemia due to type 2 diabetes mellitus (Acute) Hypoxemia (Acute) MICHELE (acute kidney injury) (Acute) HHNC (hyperglycemic hyperosmolar nonketotic coma) (Acute) #Left ankle wound due to open left ankle fracture * on IV vancomycin and zosyn * Mild leukocytosis of 11.1 which trended down to 9.9. * Lower extremity CT showed severely comminuted and displaced fractures of the medial and lateral malleoli with incomplete healing as well as tibiotalar dislocation * Podiatry on board. For surgery today. * #Chronic hypoxic respiratory failure due to COPD * Treatments of bronchodilators. Titrate oxygen to maintain saturation above 90%. * incentive spirometry * #Type 2 diabetes mellitus * On Lantus twice daily. Insulin sliding scale. Checks AC at bedtime. #depression and anxiety: continue home meds #History of seizure disorder: On Keppra Prophylaxis: Lovenox Inpatient E&M: 53105 Subs Hosp L2
[2020-08-05] MEDS: Ondansetron 4 MG/2 ML Vial IV (10:39)
--- NOTE | 2020-08-05 10:40 | CASEMGMT ---
Addendum entered by Celeste Walton 08/05/20 15:08: APRIL faxed updated clinicals to [facility]. Addendum entered by Celeste Walton 08/05/20 13:52: Patient was provided a list of SNF providers including quality and resource use data and consistent with the patient?s preferred geographic region, medical needs, and insurance network. During conversation with pt, pt had also mentioned that she wanted to speak to the Direct Marketing Executive after her surgery. APRIL provided referral to Chaplain Tae. Original Note: Social Work Note SW received message that physician was inquiring about pt's POA or if pt had guardian to consent for surgery. Pt's POA was supposedly significant other Philip but he has recently . APRIL reviewed chart, no guardian listed, only Significant other Philip listed on demographics. No POA files on pt's chart either. APRIL placed a call to [facility] and spoke with Mary. Mary states pt is own decision maker at facility and does NOT have a guardian. Mary confirms that pt's significant other Philip has recently passed and he was listed as emergency contact for pt. Mary states they do NOT have any POA documents on file but again states pt is own decision maker and doesn't have a guardian. Mary states pt does have a sister named Laura but Mary reports that their relationship is off an on. Mary states the last time the relationship was off, Laura's phone number was removed from pt's chart. Mary states pt is able to return to [facility] at discharge and she will check to determine if pt will need pre-cert or not. APRIL updated Mary that pt is having surgery today. APRIL in to speak with pt. APRIL introduced self and role at [facility]. Pt is alert and orientated x3. Pt wasn't certain about date but knew it is July 2020. Pt confirms that she came from [facility] and she has been there for about 3 weeks now. Per visits, pt was discharge to [facility] in June. Pt states that before she went to [facility] she was living with her fiance Philip. Pt confirms that Philip has now passed. Pt states he unexpectedly and they don't know what caused it. Pt states he while pt was at [facility]. Pt states they were together 10 years, almost 11. SW offered support to pt. APRIL educated pt on bereavement services and encouraged pt to ask [facility] about bereavement services. SW asked pt how she is handling Philip's . Pt states not that great. Pt states she will still break out and cry. APRIL again offered support to pt. Pt confirms that her POA was Philip but states she is thinking about naming her sister Laura Montero ([phone]) to be POA. SW asked pt if she wanted to complete POA paperwork at this time and pt denied. SW did provide pt with Advanced Directive documents. Mental Health Hx: Pt states she has history of Schizophrenia, Bipolar with Violent tendencies, and high Anxiety. Pt confirms that she see's Dr. Lo at [facility] once every 6 months. Pt state she has history of suicidal thoughts/plans/ideations. Pt states she has suicidal thoughts almost every day. Pt states she has one attempt of suicide but that was many many years ago. Pt states she took a bunch of aspirin. At this time, pt denied any current suicidal thoughts/plans/ideations. APRIL spoke with pt regarding discharge plans. Pt is having surgery today. Pt states her plan is to return to [facility] at discharge for a month or two more and then move in with her sister Laura who lives in [place]. Pt requesting list of SNF that accept pt's insurance. SW will provide. SW updated physician on this worker's conversation with pt and that pt is own decision maker. Plan: Return to [facility] Celeste Walton BLOCK CUTTER, LAUNDRY SORTER
[2020-08-05 11:00] LABS: Bedside Glucose 50 mg/dL (70-110)
[2020-08-05] MEDS: Dextrose 50%-Water 25 GM/50 ML DISP.SYRIN IV (11:09)
[2020-08-05] MEDS: Dextrose 5%/0.9% NaCl 1,000 ML 75 ML IV ×2 (11:10→17:36)
[2020-08-05 12:35] LABS: Bedside Glucose 82 mg/dL (70-110)
--- NOTE | 2020-08-05 14:00 | BON_PTH ---
PATIENT: LUCINDA KAYE LOC: MS3 U#:[id number] AGE/SX: 50/F ROOM: TX315 RE08/04/[address]: Dr. David Denise MD : 1970 BED: 1 DIS: 08/11/2020 SPEC #: [id number] RECD: 08/06/20 07:55 STATUS: DENIZ REQ #: [id number] CED: 08/05/20 14:[address]: Keena Doyle DEPT: SURGICAL PATHOLOGY RECD BY: Indiana Rosenthal ENTERED: 08/06/20 08:55 SP TYPE: Bone OTHR DR: Dr. Keena Doyle, DPM MD Dr. Júnior Smalls MD Tissues: Bone of ankle, NOS Procedures: Decalcification bone/plaque Surgery Specimen Level V Comments: @ Ordering doctor for DEC edited from to @ by JUSTICE at 08/06/20 1332 @ Ordering doctor for SUIII edited from to DR.KKUBIA Peng by RGOOD at 08/06/20 1332 @ Ordering doctor for SUIV edited from to @ by JUSTICE at 08/06/20 1332 @ Submitting doctor edited from to @ by RGOOD at 08/06/202 HEADER OPERATION: Incision, drainage, reduction ankle PRE-OP DIAGNOSIS: Open wound left lower extremity, open left ankle fracture TISSUE SUBMITTED: Medial malleolus bone MICROSCOPIC DIAGNOSIS Medial malleolus bone, biopsy: A piece of bone with reactive changes, negative for acute osteomyelitis. HEATHER:karen 08/08/20 MICROSCOPIC DESCRIPTION Slides are reviewed. GROSS DESCRIPTION Received in fixative is one container labeled with the patient's name and designated medial malleolus bone. The specimen consists of a piece of bone measuring 1 x 0.4 x 0.3 cm. The entire specimen is submitted in one cassette after decalcification. / HEATHER:karen 08/06/20 TC:5 CPT: 44396, 36555
--- NOTE | 2020-08-05 14:13 | RAD_ITS ---
STUDY: X-RAY - LEFT ANKLE REASON FOR EXAM: Female, 50 years old. I and amp; D, POSSIBLE FRAME APPLICATION OPEN ANKLE FX. TECHNIQUE: 4 fluoroscopic guided view(s) of the ankle. COMPARISON: None. FINDINGS: Utilizing fluoroscopic guidance postsurgical changes noted status post pinning of previously identified fracture dislocation of the ankle. 4 images were obtained for documentation. For more complete information recommend correlation with orthopedic procedural notes RAD/Ankle min 3 Views IMPRESSION: Fluoroscopic guided thickening of ankle fracture/dislocation Electronically Signed: Luther Santos MD at 17:15 EDT , Service support ,
[2020-08-05] MEDS: Bupivacaine 0.5% PF 10 ML VIAL (14:35)
[2020-08-05] MEDS: Lidocaine 1% (30 ml sdv) 30 ML Vial (14:35)
--- NOTE | 2020-08-05 17:11 | PCM.OPRPT ---
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 ulceration left ankle, medial to bone suspected infection Post-Operative Diagnosis: same Surgery/Procedure Performed:: debridement of bone medial left ankle. reduction of unstable left open ankle fracture Description of Surgical Findings:: left thigh tourniquet: 300mmHg versajet level 8 posterior splint materials: 0.62 k-wire x2 3-0 vicryl and 3-0 nylon local anesthesia: 20cc 1:1 mix 0.5% bupivacaine plain and 1% lidocaine plain pig conveyor operator: Keena Doyle - surgeon: Keena Doyle DPM pig conveyor operator: Vicki Allred - assist: Vicki Allred Type of Anesthesia:: General, Local Specimen's removed: left medial ankle ulcer swab. bone medial malleolus left ankle Estimated Blood Loss (mL): <50cc Description of Procedure: Indications for procedure: Patient is a 50-year-old female who presents to the office with an open ankle fracture left lower extremity. Patient fell and obtained the fracture on June 21, 2020. At that time patient was seen in the emergency room and splinted went to facility for rehabilitation. At that time patient was started on wound care. Patient did not have outpatient follow-up with surgeon regarding her ankle until I saw her 08/04/2020 at which time she was sent to the hospital for further work-up and management of her unstable left ankle fracture with likely infection and osteomyelitis. It was discussed with the patient at length that she is at high risk given the length of time since fracture and instability of the ankle that she may end up needing an amputation. Discussed with the patient options for limb salvage. Patient would like to try to save the leg if at all possible. Discussed going to surgery today for clean out of the wound and reduction of the ankle fracture. Discussed that we would then do stage procedure in order to more to definitely fixate her ankle. It was discussed with the patient of fusing her ankle joint with internal or external fixation. Patient elected after discussion of the pros and cons of all the options to attempt the external ring fixator ankle fusion. Patient understood and agreed to treatment plan recognizing all risks, benefits, alternatives, and complications including but not limited to infection, delayed healing, nonhealing, need for further surgery, or amputation. Patient is well aware that the external fixator witll be on her leg for months and it will take months or even a year to get back to ambulation and she may require a brace to do so. No guarantees were given or implied. Patient agreed to proceed with the procedure. Patient was also noted upon admission to have leukocytosis and elevated ESR and CRP. A CT was also obtained to evaluate the extension of the fracture. Patient noted to be neuropathic and admits to walking on fracture since initially injuring it. Description of the procedure: Patient seen in the preoperative holding area where the chart was reviewed and patient examined all questions were answered to patient satisfaction. Patient was then transferred to the OR and placed on the OR table in supine position. After administration of general anesthetic a high ankle block was applied of the above anesthetic. A well-padded thigh tourniquet was applied but not inflated at this time. Left lower extremity was then prepped and draped in the usual sterile fashion. Attention was then directed to the medial ankle wound where Versajet was then utilized in order to debride the ulceration into the level of bone. This sharp excisional nonselective debridement was carried out to the left medial ankle ulceration with sanguinous drainage noted into the level of bone. The predebridement measurements were noted to be 4.1 x 4.5 x 3 cm and post debridement measurements noted to be 4.3 x 4.7 x 3.5 cm wound was also noted to extend into the ankle joint with joint fluid expressed. Attention was then directed to the ankle. It should be noted that the ankle fracture was severely unstable with complete dislocation of the ankle joint. The fibula fracture was also noted to have the lateral malleolus severely displaced with proximal posterior retraction. There is also some noted healing given that the fracture is approximately 6 weeks old. Attempt at reduction of the ankle fracture was made. Given the length of time the ankle has been dislocated as well as the extent of the fracture and its instability the ankle was not able to be reduced only by manual closed reduction. It was determined that to obtain reduction of the ankle that a lateral incision would need to be made in order to free up and mobilize the attachments of the fractured fibula as well as any bony callus that had formed. A #15 blade was then utilized in order to make a skin incision approximately 6 cm in length through the epidural and dural layers into the subcutaneous tissue following the course of the distal fibula. Sharp and blunt dissection was then carried out down to the level of bone. Both the tibia and fibula were visualized. All soft tissue attachments were freed up. Should be noted that there is significant amount of scar tissue encountered throughout the dissection with some bony callus formation across the fracture sites. The fibula was noted to be comminuted. Once the soft tissue structures were freed up, reduction of the ankle joint was then again attempted. More reduction was noted to be obtained then previously but was not optimal. It was at this time that it was decided that resection of the ankle joint would be carried out with combination of curettes, osteotomes, and rongeur in order to obtain reduction. The decision to resect the joint space would allow for further planning of future ankle fusion surgery already discussed with the patient and agreed upon. The cartilage was removed from the ankle joint of both the talus and tibia with a combination of osteotomes, curette and rongeur. The decompression obtained allowed for reduction of the ankle to be obtained. This was confirmed under fluoroscopy. Adequate reduction was obtained and visualized under C arm and AP oblique and lateral views. Given the fracture to both medial and lateral malleoli it was determined that the reduction would need to be maintained with K wire fixation temporarily until more definitive procedure in coming days. Two 0.062 K wires were then placed across the tibiotalar joint in order to hold the reduction. One was placed from proximal lateral to distal medial and the other from distal central calcaneus to proximal tibia. Again fluoroscopy was utilized in order to assess placement of the K wires as well as maintenance of ankle joint reduction. At this time is noted that some of the reduction was lost but that there remained adequate reduction of the ankle joint fixated with the k-wires temporarily until further more definitive surgical treatment could be undergone. Site was flushed with copious amounts of normal sterile saline after which fresh gloves were obtained and a clean swab of the medial ankle ulceration was obtained as well as a bone culture of the medial malleolus bone. Once this was done the medial ankle ulceration site was packed with quarter inch iodoform packing. The ends of the 2 K wires were covered with pin caps. K wires were also well padded with ABDs and 4 x 4's to protect the patient's skin. The lateral incision was closed with 3-0 Vicryl for deep closure and 3-0 nylon for skin closure. The sites were dressed with 4 x 4's, ABDs, Kerlix, cast padding, posterior splint with additional sagittal stirrup for stability and Luis wrap. The thigh tourniquet was deflated with prompt, brisk, hyperemic response noted to all digits of the patient's left foot. Left DP and PT pulses were palpable. Patient was then transferred from the OR to PACU with vital signs stable and vascular status intact. Patient will be readmitted to the floor for continued care. Patient is to remain nonweightbearing to the left lower extremity. Operative dressing is to remain clean, dry, and intact. Plan is to return to the OR in a couple days for continued stage procedure with external fixation of ankle fusion. Patient is to continue with IV antibiotics. Will follow OR cultures. Podiatry will continue to follow. - Complications none - Admit VTE Documentation VTE Present on Admission: Yes VTE Mechan Device Prophylaxis: SCD's VTE Pharm Prophylaxis ordered?: Yes
--- NOTE | 2020-08-05 17:23 | RAD_ITS ---
HISTORY: post op COMPARISON: X-rays are available from June 21, 2020, as well as intraoperative spot fluoroscopic images from one hour earlier. FINDINGS: # of images incl. paperwork: 3 XR Ankle Min 3 Views : Fixation wires are present through the ankle joint as well as through the navicular from a lateral approach. One of the wires extends from the plantar surface of the foot, through the calcaneus, through the talus, and into the distal tibia. The talus is subluxed laterally on the tibial plafond. Medial and lateral malleoli nonunion displaced fractures. Hyperostosis from bone repair about the medial and lateral malleoli fractures but with the malalignment. Dorsal splint pain. RAD/Ankle min 3 Views IMPRESSION: Malalignment with sclerosis and hyperostosis from healing but with the malalignment with arthritis. K wire fixation. at 2321 Reported and signed by: David Carvajal MD Electronically Signed: David Carvajal MD at 23:20 EDT Tel , Service support ,
[2020-08-05 17:25] LABS: Bedside Glucose 154 mg/dL (70-110)
[2020-08-05 19:54] LABS: M R Staph aureus DNA By PCR Negative (Negative); Probe Check PASS; Specimen Processing Control PASS; Staph aureus DNA By PCR NEGATIVE (Negative)
[2020-08-05] MEDS: DULoxetine Hcl 30 MG Capsule PO (21:23)
[2020-08-05] MEDS: Pregabalin 50 MG Capsule 100 MG PO (21:23)
[2020-08-05] MEDS: Acetaminophen 325 MG Tablet 650 MG PO (21:24)
[2020-08-05] MEDS: levETIRAcetam 500 MG Tablet PO (21:24)
[2020-08-05] MEDS: Doxazosin 1 MG Tablet 2 MG PO (21:25)
[2020-08-05] MEDS: RisperiDONE 0.25 MG Tablet PO (21:25)
[2020-08-05] MEDS: Insulin Lispro 100 UNIT/ML INSULN.PEN SC (21:33)
[2020-08-05 21:56] LABS: Bedside Glucose 232 mg/dL (70-110)
[2020-08-06] MEDS: oxyCODONE 5 MG Tablet PO ×4 (01:46→23:49)
[2020-08-06] MEDS: Dextrose 5%/0.9% NaCl 1,000 ML 75 ML IV ×3 (01:47→21:01)
[2020-08-06] MEDS: Enoxaparin 40 MG/0.4 ML Syringe SC (05:52)
[2020-08-06] MEDS: 0.9% Saline Lock 10 ML Syringe IV ×4 (05:53→23:50)
[2020-08-06] MEDS: Morphine 2 MG/ML Syringe IV ×2 (05:53→20:45)
[2020-08-06] MEDS: Acetaminophen 325 MG Tablet 650 MG PO ×2 (05:53→14:33)
[2020-08-06 06:14] VITALS: BP 122/68; PULSE 86; RESP 16; TEMP 37.3; O2SAT 97
[2020-08-06 06:34] LABS: Absolute Neutrophil Count 12.7 X10^3/uL (2.0-7.7); Basophil# 0.06 X10^3/uL; Basophil% 0.4 % (0-1); Eosinophil# 0.44 X10^3/uL; Eosinophils% 2.8 % (0-5); Hematocrit 33.2 % (37-47); Hemoglobin 9.4 g/dL (12.0-15.0); Lymphocyte % 6.4 % (19-41); Mean Corp Hgb Conc 28.3 g/dL (32-36); Mean Corpuscular Hgb 26.6 pg (27.0-32.0); Mean Corpuscular Volume 94.1 fL (81-99); Mean Platelet Vol. 9.3 fl (6.2-12.0); Monocyte# 1.25 X10^3/uL; NRBC Flagged by Analyzer 0 % (0-5); Neutrophil # 12.69 X10^3/uL (2.7-7.7); Neutrophil % 81.8 % (47-70); Platelet Count 395 K/mm3 (150-450); Red Blood Count 3.53 M/mm3 (4.2-5.4); White Blood Count 15.5 K/mm3 (4.4-11.0)
[2020-08-06] MEDS: Vancomycin IV 1,000 MG/200 ML BAG 200 MG IV (06:38)
[2020-08-06 07:12] LABS: Anion Gap 3 (5-15); BUN 23 mg/dL (7-18); Calcium,Total 7.7 mg/dL (8.5-10.1); Chloride 111 mmol/L (98-107); Creatinine, Serum 1.44 mg/dL (0.55-1.02); EST Glomerular Filtration Rate 41 mL/min (>60); Est Glom Filt Rate - Afr Amer 49 mL/min (>60); Estimated Creatinine Clearance 41.12 ml/min; Glucose 162 mg/dL (74-106); Potassium 4.8 mmol/L (3.5-5.1); Sodium Level 141 mmol/L (136-145)
[2020-08-06 07:17] LABS: Vancomycin, Trough Level 28.7 ug/mL (5.0-15.0)
[2020-08-06 08:02] VITALS: O2SAT 97
--- NOTE | 2020-08-06 08:13 | PN_ITS ---
Patient Problems: Active and Suspected Problems (Last Reviewed 08/04/20 @ 21:07 by Zuleyka Donald LEASING ASSISTANT-C) Hypoxia (Acute) secondary to COPD with altered mental status Open left ankle fracture (Acute) Leukocytosis (Acute) - Physical Exam Vitals/I&O's: Vital Signs Temp Pulse Resp BP Pulse Ox 99.2 F H 86 16 122/68 H 97 08/06/20 06:14 08/06/20 06:14 08/06/20 06:14 08/06/20 06:14 08/06/20 08:02 Oxygen Flow Rate (L/min) 2 Oxygen Delivery Method Nasal Cannula Weight: 86.5 kg Body Mass Index (BMI) 31.4 Finger Stick Blood Glucose 154 Intake and Output for Last 24 Hours 08/04/20 08/05/20 08/06/20 23:59 23:59 23:59 Intake Total 640 / 1140 4150 / 4150 1027.50 / 1027.50 Output Total 900 / 900 Balance 640 / 1140 3250 / 3250 1027.50 / 1027.50 General: Alert, Oriented x3 HEENT: Atraumatic Abdomen: Obese Extremities: No clubbing, No cyanosis, Capillary Refill Less than 3 Seconds - to all toes which are a healthy pink color as well, - - posterior splint clean, dry, intact Skin: Ulcer/ Wound - left medial ankle, Incision - lateral left ankle Musculoskeletal: Muscle Wasting, Tenderness, - - open ankle fracture under splint Neurological: - - decreased epicritic sensation as consistent with patient's neuropathy Psych/Mental Status: Normal Affect, Appropriate Microbiology Past 72 Hours 08/04/20 18:00 Mucosa - Nose SARS-CoV-2 Antigen (Rapid) - Final Laboratory Results 08/05/20 10:52: POC Glucose 50 L 08/05/20 12:32: POC Glucose 82 08/05/20 17:22: POC Glucose 154 H 08/05/20 21:32: POC Glucose 232 H 08/05/20 : S.aureus Protein A PCR NEGATIVE, MRSA (PCR) Negative 08/06/20 06:24: Vancomycin Trough 28.7 H 08/06/20 06:24: WBC 15.5 H, RBC 3.53 L, Hgb 9.4 L, Hct 33.2 L, MCV 94.1, MCH 26.6 L, MCHC 28.3 L, RDW Std Deviation 55.0 H, RDW Coeff of Krista 16.0 H, Plt Count 395, MPV 9.3, Immature Gran % (Auto) 0.600, Neut % (Auto) 81.8 H, Lymph % (Auto) 6.4 L, Stokes % (Auto) 8.0, Eos % (Auto) 2.8, Baso % (Auto) 0.4, Absolute Neuts (auto) 12.7 H, Absolute Lymphs (auto) 1.00, Nucleated RBC % 0 08/06/20 06:24: Sodium 141, Potassium 4.8, Chloride 111 H, Carbon Dioxide 27.0, Anion Gap 3 L, BUN 23 H, Creatinine 1.44 H, Estim Creat Clear Calc 41.12, Est GFR (MDRD) Af Amer 49 L, Est GFR (MDRD) Non-Af 41 L, BUN/Creatinine Ratio 16.0, Glucose 162 H, Calcium 7.7 L Current Medications Acetaminophen (Acetaminophen 325 Mg Tablet) 650 mg PO Q6H PRN PRN PRN Reason: Pain Score 1-10/Temp > 100.7 F Last Admin: 08/06/20 05:53 Dose: 650 mg Documented by: Ascorbic Acid (Ascorbic Acid 500 Mg Tablet) 500 mg PO DAILY REPLACED BY [facility] Last Admin: 08/05/20 10:20 Dose: Not Given Documented by: Docusate Sodium (Docusate Sodium 100 Mg Capsule) 100 mg PO BID PRN PRN PRN Reason: Constipation Doxazosin Mesylate (Doxazosin 1 Mg Tablet) 2 mg PO QHS REPLACED BY [facility] Last Admin: 08/05/20 21:25 Dose: 2 mg Documented by: Duloxetine HCl (Duloxetine Hcl 30 Mg Capsule) 30 mg PO BID REPLACED BY [facility] Last Admin: 08/05/20 21:23 Dose: 30 mg Documented by: Enoxaparin Sodium (Enoxaparin 40 Mg/0.4 Ml Syringe) 40 mg SC DAILY@0600 REPLACED BY [facility] Last Admin: 08/06/20 05:52 Dose: 40 mg Documented by: Ergocalciferol (Ergocalciferol 50,000 Unit Capsule) 50,000 unit PO Fr@1000 REPLACED BY [facility] Furosemide (Furosemide 40 Mg Tablet) 40 mg PO DAILY REPLACED BY [facility] Last Admin: 08/05/20 16:57 Dose: Not Given Documented by: Piperacillin Sod/Tazobactam (Sod 3.375 gm/ Sodium Chloride) 50 mls @ 12.5 mls/hr IV Q8 REPLACED BY [facility] Last Admin: 08/06/20 05:52 Dose: 12.5 mls/hr Documented by: Vancomycin IV Pharmacy to Dose (1 each/ Sodium Chloride) 500 mls @ 250 mls/hr IV X1 PRN; Protocol PRN Reason: Rx to Dose Vancomycin HCl (Vancomycin) 1,000 mg in 200 mls @ 200 mls/hr IV Q12H REPLACED BY [facility] Last Admin: 08/06/20 06:38 Dose: 200 mls/hr Documented by: Dextrose/Sodium Chloride (Dextrose 5%/0.9% Nacl) 1,000 mls @ 75 mls/hr IV .[id number] REPLACED BY [facility] Last Infusion: 08/06/20 06:38 Dose: 0 mls/hr Documented by: Sodium Chloride () 250 mls @ 15 mls/hr IV .[id number] PRN PRN Reason: Saline Flush Insulin Glargine (Insulin Glargine 100 Units/Ml Pen) 22 units SC 1100,2200 REPLACED BY [facility] Last Admin: 08/05/20 21:34 Dose: 22 units Documented by: Insulin Human Lispro (Insulin Lispro 100 Unit/Ml Insuln.Pen) 0 unit SC ACHS REPLACED BY [facility]; Protocol Last Admin: 08/05/20 21:33 Dose: 3 units Documented by: Insulin Human Lispro (Insulin Lispro 100 Unit/Ml Insuln.Pen) 13 unit SC 0800,1200,1700 REPLACED BY [facility] Last Admin: 08/05/20 18:09 Dose: Not Given Documented by: Levetiracetam (Levetiracetam 500 Mg Tablet) 500 mg PO BID REPLACED BY [facility] Last Admin: 08/05/20 21:24 Dose: 500 mg Documented by: Morphine Sulfate (Morphine 2 Mg/Ml Syringe) 2 mg IV Q3H PRN PRN PRN Reason: Pain Score 6-10 Last Admin: 08/06/20 05:53 Dose: 2 mg Documented by: Ondansetron HCl (Ondansetron 4 Mg/2 Ml Vial) 4 mg IV Q8H PRN PRN PRN Reason: NAUSEA/VOMITING Last Admin: 08/05/20 10:39 Dose: 4 mg Documented by: Oxycodone HCl (Oxycodone 5 Mg Tablet) 5 mg PO Q4H PRN PRN PRN Reason: Pain Score 4-5 Last Admin: 08/06/20 01:46 Dose: 5 mg Documented by: Pregabalin (Pregabalin 50 Mg Capsule) 100 mg PO BID REPLACED BY [facility] Last Admin: 08/05/20 21:23 Dose: 100 mg Documented by: Risperidone (Risperidone 0.25 Mg Tablet) 0.25 mg PO BID REPLACED BY [facility] Last Admin: 08/05/20 21:25 Dose: 0.25 mg Documented by: Sodium Chloride (0.9% Saline Lock 10 Ml Syringe) 10 - 40 ml IV UD PRN PRN Reason: SALINE FLUSH Last Admin: 08/06/20 05:53 Dose: 10 ml Documented by: Tolterodine Tartrate (Tolterodine Tartrate 2 Mg Cap.Sa) 2 mg PO DAILY REPLACED BY [facility] Last Admin: 08/05/20 10:19 Dose: Not Given Documented by: Medical Necessity - Tobacco Use Smoking Status: Current every day smoker Tobacco Use: Cigarettes Assessment/Plan All Active Problems (Last Reviewed 08/04/20 @ 21:07 by Zuleyka Donald, LEASING ASSISTANT-C) Acute electrocardiogram changes (Acute) Hypoxia (Acute) Fracture tibia/fibula (Acute) Open left ankle fracture (Acute) Hyperglycemia (Acute) Dehydration (Acute) Leukocytosis (Acute) Altered level of consciousness (Acute) Hyperglycemia due to type 2 diabetes mellitus (Acute) Hypoxemia (Acute) MICHELE (acute kidney injury) (Acute) HHNC (hyperglycemic hyperosmolar nonketotic coma) (Acute) left ankle neglected open bimalleolar fracture-likely infection/osteomyelitis left medial ankle ulcer to bone/joint cellulitis left lower extremity DM2 with neuropathy Hx schizophrenia Patient was seen and examined today. Dressing left clean, dry, intact CT of left ankle fracture reviewed Given the patient's history and history of the wound this is a similar presentation as a charcot ankle presentation. This would be considered as a limb salvage case. Patient is status post debridement of bone and ankle reduction left foot. Plan to return to the OR on Tuesday for more definitive procedure. Patient elected to proceed with an external fixator ankle fusion. This will be done with both Dr. Doyle and Dr. Allred. Patient to be n.p.o. after midnight on Tuesday. Patient noted to be rather somnolent on exam today. Nursing relates that she is just recently medicated with pain medicine. They relate that pain is well controlled with medication. Follow wound and blood cultures. Gram-positive bacteria growing in both bone and soft tissue. Continue antibiotics. Follow ID recommendations. Strict nonweightbearing to left lower extremity Anticipated discharge with PICC line long-term IV antibiotics and need for SNF placement for rehabilitation. Patient noted to have blood work demonstrating hemoglobin A1c of 8.0, WBC 15.5, ESR >130, CRP 39.5 All questions answered. Please contact if any questions or concerns Keena Doyle DPM [facility] [phone]
[2020-08-06] MEDS: Furosemide 40 MG Tablet PO (08:41)
[2020-08-06] MEDS: Tolterodine Tartrate 2 MG CAP.SA PO (08:41)
[2020-08-06] MEDS: levETIRAcetam 500 MG Tablet PO ×2 (08:41→23:37)
[2020-08-06] MEDS: DULoxetine Hcl 30 MG Capsule PO ×2 (08:42→23:37)
[2020-08-06] MEDS: Pregabalin 50 MG Capsule 100 MG PO ×2 (08:42→23:41)
[2020-08-06] MEDS: Ascorbic Acid 500 MG Tablet PO (08:42)
[2020-08-06] MEDS: RisperiDONE 0.25 MG Tablet PO ×2 (08:42→23:38)
--- NOTE | 2020-08-06 08:43 | NURSING ---
YARELI FROM PHARMACY CALLED TO HAVE THE VANC STOPPED IF STILL INFUSING D/T HIGH VANC TROUGH. SERA Michael RN NOTIFIED, VANC ALREADY FINISHED
[2020-08-06] MEDS: Insulin Lispro 100 UNIT/ML INSULN.PEN SC ×2 (08:46→11:26)
[2020-08-06] MEDS: Insulin Lispro 100 UNIT/ML INSULN.PEN 13 UNIT SC ×3 (08:47→17:15)
--- NOTE | 2020-08-06 08:48 | PCM.RX.CS ---
Consult Pharmacy has been consulted to manage selected antiobiotic: Vancomycin Type of Consult: Follow-up Suspected Infection: Skin/Soft tissue Prior Doses of Antibiotics Received/Current Regimen: 1Gm iv q12h. Labs: Sodium 141 mmol/L (136-145) 08/06/20 06:24 Potassium 4.8 mmol/L (3.5-5.1) 08/06/20 06:24 Chloride 111 mmol/L (98-107) H 08/06/20 06:24 Carbon Dioxide 27.0 mmol/L (21.0-32.0) 08/06/20 06:24 Anion Gap 3 (5-15) L 08/06/20 06:24 BUN 23 mg/dL (7-18) H 08/06/20 06:24 Creatinine 1.44 mg/dL (0.55-1.02) H 08/06/20 06:24 Est GFR (MDRD) Af Amer 49 mL/min (>60) L 08/06/20 06:24 Est GFR (MDRD) Non-Af 41 mL/min (>60) L 08/06/20 06:24 BUN/Creatinine Ratio 16.0 RATIO (10-20) 08/06/20 06:24 Glucose 162 mg/dL (74-106) H 08/06/20 06:24 Vancomycin Trough 28.7 ug/mL (5.0-15.0) H 08/06/20 06:24 Microbiology: Microbiology 08/04/20 18:00 Mucosa - Nose SARS-CoV-2 Antigen (Rapid) - Final Weight used for dosin.5 kg Estimated Creatinine Clearance: 41 ml/hr Goal Trough: 15-20 mcg/mL Pharmacy Plan for Drug Dosing: Trough today elevated at 28.7. Renal function decreased with Cr 1.44, CrCl 41. Will DC order for 1gm iv q12h. A random level ordered for tomorrow in AM. Will dose further depending on level 3.25.. Pharmacy Service will continue to monitor and adjust dosing as required. Follow-Up Labs: Trough Vancomycin - random level 3.25.21@0630
[2020-08-06 09:11] LABS: Bedside Glucose 168 mg/dL (70-110)
--- NOTE | 2020-08-06 09:39 | NURSING ---
Dr Doyle was in to see patient this am. Dressing was left in place. There are plans for further surgery on 08/08/20
--- NOTE | 2020-08-06 10:10 | CASEMGMT ---
Social Work Note APRIL placed a call to Liz at [facility] and asked if pre-cert will be needed to return or not. Liz states she thinks pt's insurance is still waiving pre-certs but once she is back at [facility] she will check. APRIL informed Liz that pt is not medically ready today, APRIL will fax updates when available. Liz states understanding. Plan: [facility] Celeste Walton MANUFACTURING SALES REPRESENTATIVE, TURRET LATHE TENDER
--- NOTE | 2020-08-06 10:15 | CASEMGMT ---
[facility] Palliative Care Screening Tool completed. Pt did not meet criteria.
--- NOTE | 2020-08-06 11:16 | PN_ITS ---
Patient Problems: Active and Suspected Problems (Last Reviewed 08/04/20 @ 21:07 by Zuleyka Donald, PAPER STACKER-C) Hypoxia (Acute) secondary to COPD with altered mental status Open left ankle fracture (Acute) Leukocytosis (Acute) Subjective: Patient seen and examined. She complains of pain in her affected foot. She did have surgery yesterday, and had debridement of the bone on the medial left ankle and reduction of unstable left open ankle fracture. Review systems otherwise negative. Vitals/I&O's: Vital Signs Temp Pulse Resp BP Pulse Ox 99.2 F H 86 16 122/68 H 97 08/06/20 06:14 08/06/20 06:14 08/06/20 06:14 08/06/20 06:14 08/06/20 08:02 Oxygen Flow Rate (L/min) 2 Oxygen Delivery Method Nasal Cannula Weight: 190 lb 11.198 oz Body Mass Index (BMI) 31.4 Finger Stick Blood Glucose 154 Intake and Output for Last 24 Hours 08/04/20 08/05/20 08/06/20 23:59 23:59 23:59 Intake Total 640 / 1140 4150 / 4150 1277.50 / 1277.50 Output Total 900 / 900 Balance 640 / 1140 3250 / 3250 1277.50 / 1277.50 General: Alert, Oriented x3, Cooperative, No apparent distress HEENT: Atraumatic, PERRLA, EOMI, Normocephalic Oral: Dry Mucosa Neck: Supple, No JVD, Negative Carotid Bruits Lungs: - - diminished breath sounds bibasally, no wheezes or crackles. on 2L of oxygen Cardiovascular: Regular rate, Regular Rhythm, Normal S1, Normal S2, No murmurs Abdomen: Bowel Sounds Present, Soft, Non Tender, Non-Distended, No Hepato- splenomegaly Extremities: No clubbing, No cyanosis, No edema, Capillary Refill Less than 3 Seconds Skin: - - LLE wrapped in jarett bandage Musculoskeletal: No Tenderness to Palpation of Joints or Extremities Lymphatic: No Cervical, Supraclavicular, or Inguinal Adenopathy Neurological: Cranial nerves II-XII grossly intact, Neuro grossly intact, Motor Exam 5/5 strength throughout Psych/Mental Status: Normal Affect, Appropriate, Alert and oriented to time, place, person, mood and affect Microbiology Past 72 Hours 08/04/20 18:00 Mucosa - Nose SARS-CoV-2 Antigen (Rapid) - Final Laboratory Results 08/05/20 12:32: POC Glucose 82 08/05/20 17:22: POC Glucose 154 H 08/05/20 21:32: POC Glucose 232 H 08/05/20 : S.aureus Protein A PCR NEGATIVE, MRSA (PCR) Negative 08/06/20 06:24: Vancomycin Trough 28.7 H 08/06/20 06:24: WBC 15.5 H, RBC 3.53 L, Hgb 9.4 L, Hct 33.2 L, MCV 94.1, MCH 26.6 L, MCHC 28.3 L, RDW Std Deviation 55.0 H, RDW Coeff of Krista 16.0 H, Plt Count 395, MPV 9.3, Immature Gran % (Auto) 0.600, Neut % (Auto) 81.8 H, Lymph % (Auto) 6.4 L, [place] % (Auto) 8.0, Eos % (Auto) 2.8, Baso % (Auto) 0.4, Absolute Neuts (auto) 12.7 H, Absolute Lymphs (auto) 1.00, Nucleated RBC % 0 08/06/20 06:24: Sodium 141, Potassium 4.8, Chloride 111 H, Carbon Dioxide 27.0, Anion Gap 3 L, BUN 23 H, Creatinine 1.44 H, Estim Creat Clear Calc 41.12, Est GFR (MDRD) Af Amer 49 L, Est GFR (MDRD) Non-Af 41 L, BUN/Creatinine Ratio 16.0, Glucose 162 H, Calcium 7.7 L 08/06/20 08:45: POC Glucose 168 H Current Medications Acetaminophen (Acetaminophen 325 Mg Tablet) 650 mg PO Q6H PRN PRN PRN Reason: Pain Score 1-10/Temp > 100.7 F Last Admin: 08/06/20 05:53 Dose: 650 mg Documented by: Ascorbic Acid (Ascorbic Acid 500 Mg Tablet) 500 mg PO DAILY [facility] Last Admin: 08/06/20 08:42 Dose: 500 mg Documented by: Docusate Sodium (Docusate Sodium 100 Mg Capsule) 100 mg PO BID PRN PRN PRN Reason: Constipation Doxazosin Mesylate (Doxazosin 1 Mg Tablet) 2 mg PO QHS [facility] Last Admin: 08/05/20 21:25 Dose: 2 mg Documented by: Duloxetine HCl (Duloxetine Hcl 30 Mg Capsule) 30 mg PO BID [facility] Last Admin: 08/06/20 08:42 Dose: 30 mg Documented by: Enoxaparin Sodium (Enoxaparin 40 Mg/0.4 Ml Syringe) 40 mg SC DAILY@0600 [facility] Last Admin: 08/06/20 05:52 Dose: 40 mg Documented by: Ergocalciferol (Ergocalciferol 50,000 Unit Capsule) 50,000 unit PO Fr@1000 [facility] Furosemide (Furosemide 40 Mg Tablet) 40 mg PO DAILY [facility] Last Admin: 08/06/20 08:41 Dose: 40 mg Documented by: Piperacillin Sod/Tazobactam (Sod 3.375 gm/ Sodium Chloride) 50 mls @ 12.5 mls/hr IV Q8 [facility] Last Infusion: 08/06/20 10:53 Dose: Infused Documented by: Vancomycin IV Pharmacy to Dose (1 each/ Sodium Chloride) 500 mls @ 250 mls/hr IV X1 PRN; Protocol PRN Reason: Rx to Dose Dextrose/Sodium Chloride (Dextrose 5%/0.9% Nacl) 1,000 mls @ 75 mls/hr IV .[id number] [facility] Last Infusion: 08/06/20 08:39 Dose: 75 mls/hr Documented by: Sodium Chloride () 250 mls @ 15 mls/hr IV .[id number] PRN PRN Reason: Saline Flush Insulin Glargine (Insulin Glargine 100 Units/Ml Pen) 22 units SC 1100,2200 [facility] Last Admin: 08/05/20 21:34 Dose: 22 units Documented by: Insulin Human Lispro (Insulin Lispro 100 Unit/Ml Insuln.Pen) 0 unit SC ACHS [facility]; Protocol Last Admin: 08/06/20 08:46 Dose: 1 units Documented by: Insulin Human Lispro (Insulin Lispro 100 Unit/Ml Insuln.Pen) 13 unit SC 0800,1200,1700 [facility] Last Admin: 08/06/20 08:47 Dose: 13 unit Documented by: Levetiracetam (Levetiracetam 500 Mg Tablet) 500 mg PO BID [facility] Last Admin: 08/06/20 08:41 Dose: 500 mg Documented by: Morphine Sulfate (Morphine 2 Mg/Ml Syringe) 2 mg IV Q3H PRN PRN PRN Reason: Pain Score 6-10 Last Admin: 08/06/20 05:53 Dose: 2 mg Documented by: Ondansetron HCl (Ondansetron 4 Mg/2 Ml Vial) 4 mg IV Q8H PRN PRN PRN Reason: NAUSEA/VOMITING Last Admin: 08/05/20 10:39 Dose: 4 mg Documented by: Oxycodone HCl (Oxycodone 5 Mg Tablet) 5 mg PO Q4H PRN PRN PRN Reason: Pain Score 4-5 Last Admin: 08/06/20 08:42 Dose: 5 mg Documented by: Pregabalin (Pregabalin 50 Mg Capsule) 100 mg PO BID [facility] Last Admin: 08/06/20 08:42 Dose: 100 mg Documented by: Risperidone (Risperidone 0.25 Mg Tablet) 0.25 mg PO BID [facility] Last Admin: 08/06/20 08:42 Dose: 0.25 mg Documented by: Sodium Chloride (0.9% Saline Lock 10 Ml Syringe) 10 - 40 ml IV UD PRN PRN Reason: SALINE FLUSH Last Admin: 08/06/20 05:53 Dose: 10 ml Documented by: Tolterodine Tartrate (Tolterodine Tartrate 2 Mg Cap.Sa) 2 mg PO DAILY [facility] Last Admin: 08/06/20 08:41 Dose: 2 mg Documented by: STROKE Vital Signs/Narrative: Vital Signs Pulse Ox 08/06/20 08:02 97 Medical Necessity - Tobacco Use Smoking Status: Current every day smoker Tobacco Use: Cigarettes Assessment/Plan All Active Problems (Last Reviewed 08/04/20 @ 21:07 by Zuleyka Donald PAPER STACKER-C) Acute electrocardiogram changes (Acute) Hypoxia (Acute) Fracture tibia/fibula (Acute) Open left ankle fracture (Acute) Hyperglycemia (Acute) Dehydration (Acute) Leukocytosis (Acute) Altered level of consciousness (Acute) Hyperglycemia due to type 2 diabetes mellitus (Acute) Hypoxemia (Acute) MICHELE (acute kidney injury) (Acute) HHNC (hyperglycemic hyperosmolar nonketotic coma) (Acute) #Left ankle wound due to open left ankle fracture * on IV vancomycin and zosyn * wbc today is 15.5 * Lower extremity CT showed severely comminuted and displaced fractures of the medial and lateral malleoli with incomplete healing as well as tibiotalar dislocation * today is POD 1 for debridement of left ankle open fracture and stabilization of fracture * on tylenol, oxycodone and morphine for pain * #Chronic hypoxic respiratory failure due to COPD * breathing Treatments of bronchodilators. Titrate oxygen to maintain sa turation above 90%. * incentive spirometry * #Type 2 diabetes mellitus * On Lantus twice daily. Insulin sliding scale. Checks AC at bedtime. #depression and anxiety: on risperdal, and cymbalta #History of seizure disorder: On Keppra DVT Prophylaxis: Lovenox Inpatient E&M: 55463 Subs Hosp L2
[2020-08-06 11:40] VITALS: BP 100/55; PULSE 81; RESP 18; TEMP 36.9; O2SAT 94
[2020-08-06 11:41] LABS: Bedside Glucose 195 mg/dL (70-110)
--- NOTE | 2020-08-06 13:28 | PCM.HP.ID ---
Problem List (1) Open left ankle fracture Status: Acute Qualifiers: Encounter type: subsequent encounter Reason for Consult: osteo Consulted by: Dr. Desir History of Present Illness: The patient is a 50 year old F with L ankle fracture about 3 months ago, now with about one week of worsened pain, redness, swelling, drainage. No fever. Came to ED, taken to OR 08/[address] Doyle for I&D. No n/v/d. Full ROS performed and neg except as noted above. 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) Diabetes (Chronic) Blind left eye (Chronic) Type II diabetes mellitus (Chronic) Depression (Chronic) Anxiety (Chronic) Peripheral neuropathy (Chronic) Hyperosmolar hyponatremia (Chronic) Allergies/Adverse Reactions: Allergies Sulfa (Sulfonamide Antibiotics) Allergy (Verified 08/04/20 17:07) Hives Home Medications: Ambulatory Orders Medication Instructions Recorded Oxybutynin Chloride [Ditropan Xl] 5 mg PO BID 06/10/17 Duloxetine Hcl [Cymbalta] 30 mg PO BID 10/24/19 Acetaminophen [Tylenol] 500 mg PO TID 06/23/20 Ascorbic Acid 500 mg PO DAILY 08/04/20 Docusate Sodium 100 mg PO BID 08/04/20 Ergocalciferol (Vitamin D2) 50,000 unit PO FR 08/04/20 [Vitamin D2] Furosemide [Lasix] 40 mg PO DAILY 08/04/20 Insulin Glargine,Hum.rec.anlog 22 unit SQ BID 08/04/20 [Lantus] Insulin Lispro Protamin/Lispro 13 unit SQ TIDCM 08/04/20 [Humalog Mix 50-50 Vial] Insulin Lispro [Humalog] See Protocol SQ TIDCM 08/04/20 Levetiracetam [Keppra] 500 mg PO BID 08/04/20 M-Vit,Tx,Iron,Mins/Calc/Folic 1 tablet PO DAILY 08/04/20 [Thera-M Caplet] Multivit,Stress Formula/Zinc 1 tablet PO BID 08/04/20 [Stress Formula with Zinc Tab] Oxycodone HCl 5 mg PO Q4H PRN PRN 08/04/20 Prazosin HCl 2 mg PO QHS 08/04/20 Pregabalin [Lyrica] 100 mg PO BID 08/04/20 Risperidone 0.25 mg PO BID 08/04/20 - Social History Tobacco Use: cigarettes Vital Signs Temp Pulse Resp BP Pulse Ox 98.4 F 81 18 100/55 L 94 08/06/20 11:40 08/06/20 11:40 08/06/20 11:40 08/06/20 11:40 08/06/20 11:40 Oxygen Flow Rate (L/min) 2 Oxygen Delivery Method Nasal Cannula Weight: 86.5 kg Body Mass Index (BMI) 31.4 Finger Stick Blood Glucose 154 Microbiology Past 72 Hours 08/05/20 Unknown Wound Culture - Preliminary Bone - Other Gram positive organism 08/04/20 18:00 SARS-CoV-2 Antigen (Rapid) - Final Mucosa - Nose Laboratory Tests Past 24 Hrs 08/05/20 08/06/20 08/06/20 Unknown 06:24 06:24 WBC 15.5 H RBC 3.53 L Hgb 9.4 L Hct 33.2 L MCV 94.1 MCH 26.6 L MCHC 28.3 L RDW Std Deviation 55.0 H RDW Coeff of Krista 16.0 H Plt Count 395 MPV 9.3 Immature Gran % (Auto) 0.600 Neut % (Auto) 81.8 H Lymph % (Auto) 6.4 L [place] % (Auto) 8.0 Eos % (Auto) 2.8 Baso % (Auto) 0.4 Absolute Neuts (auto) 12.7 H Absolute Lymphs (auto) 1.00 Nucleated RBC % 0 Sodium Potassium Chloride Carbon Dioxide Anion Gap BUN Creatinine Estim Creat Clear Calc Est GFR (MDRD) Af Amer Est GFR (MDRD) Non-Af BUN/Creatinine Ratio Glucose Calcium Vancomycin Trough 28.7 H S.aureus Protein A PCR NEGATIVE MRSA (PCR) Negative 08/06/20 06:24 WBC RBC Hgb Hct MCV MCH MCHC RDW Std Deviation RDW Coeff of Krista Plt Count MPV Immature Gran % (Auto) Neut % (Auto) Lymph % (Auto) [place] % (Auto) Eos % (Auto) Baso % (Auto) Absolute Neuts (auto) Absolute Lymphs (auto) Nucleated RBC % Sodium 141 Potassium 4.8 Chloride 111 H Carbon Dioxide 27.0 Anion Gap 3 L BUN 23 H Creatinine 1.44 H Estim Creat Clear Calc 41.12 Est GFR (MDRD) Af Amer 49 L Est GFR (MDRD) Non-Af 41 L BUN/Creatinine Ratio 16.0 Glucose 162 H Calcium 7.7 L Vancomycin Trough S.aureus Protein A PCR MRSA (PCR) - Other Studies Radiology: [] reviewed Other Studies: [] Route of nutrition/ use of supplements: [] Nutritional Intake: [] IV Site: [] Morales Catheter: [] - Physical Exam General: Alert, Oriented x3, Cooperative, No apparent distress HEENT: Atraumatic, PERRLA, EOMI Neck: Supple, No Nodes Lungs: Clear to auscultation, Normal air movement Cardiovascular: Regular rate, Regular Rhythm Abdomen: Soft, Non Tender, Non-Distended Extremities: Edema Skin: Ulcer/ Wound - Leg wrapped IV Site: Peripheral, without redness Neurological: Cranial nerves II-XII grossly intact - Assessment/Plan Antibiotics: [] Assessment/Plan: [] Active and Suspected Problems (Last Reviewed 08/04/20 @ 21:07 by Zuleyka Donald FINANCIAL QUANTITATIVE ANALYST-C) Hypoxia (Acute) secondary to COPD with altered mental status Open left ankle fracture (Acute) Leukocytosis (Acute) L ankle osteo - now s/p I&D by Dr. Doyle 08/05/20. Bone cx with gram pos so far. On vanc/zosyn, will order picc. Will follow, thank you
[2020-08-06] MEDS: Docusate Sodium 100 MG Capsule PO (14:34)
--- NOTE | 2020-08-06 14:51 | CHAPLAIN ---
Type of Pastoral Visit ___ Initial Visit ___ Follow-up Visit ___ On-call Visit ___ General Patient Visit ___ Spiritual Assessment ___ Family Conference ___ Bereavement ___ Rapid Response ___ Code Blue ___ Other (describe below) Pastoral Care Referral From ___ Patient ___ Family ___ Nurse ___ Physician ___ Food And Beverage Lead ___ [place]boy Operator ___ Other (describe below) Sacrament/Intervention ___ Active listening ___ Anointing ___ Pentecostal ___ Bereavement ___ Communion ___ Meenakshi exploration ___ ___ Life review ___ Prayer ___ Reconciliation ___ Sacrament of Sick ___ Supportive presence ___ Wedding ___ Other (describe below) Pastoral Comments two attempts to see patient and she was soundly asleep and did not awaken to her name
--- NOTE | 2020-08-06 15:08 | CASEMGMT ---
Addendum entered by Celeste Walton 08/06/20 15:47: APRIL faxed updated clinicals to [facility]. Original Note: Social Work Note SW back in to speak with pt to continue discussion of Mental Health. Pt is sitting in chair. Pt states she doesn't remember talking to this worker yesterday states I talked to a lot of people yesterday. Pt confirms that she has history of Schizophrenia, Bipolar with Violent Tendencies, and Anxiety. Pt confirms that she see's Dr. Flowers at [facility], states she see's Dr. Flowers every six months. Pt states before that she was seeing Dr. Flowers every month. Pt states that her Mental Health is well controlled at this time. Pt states today she has history of suicidal thoughts but denied any history of plans or ideations. Per conversation with pt yesterday, pt had told this worker that she attempted suicide once many many years ago by taking a lot of aspirin. Pt denied daily suicidal thoughts, states she has suicidal thoughts a couple times a week. SW asked pt when is the last time she had a suicidal thought and pt states when my . SW asked pt when her and pt states about month/month half ago. SW provided support to pt. SW asked pt about bereavement/grief counseling. Pt states I am not sure where to go to get that. SW informed pt that this worker can provide her with bereavement/grief resources but also encouraged pt to speak with [facility] when she returns about having someone speak to her there about bereavement/grief. Pt states understanding. SW asked pt to discuss her suicidal thoughts in further detail. SW asked pt if her thoughts are fleeting or if she ruminates on the thoughts. Pt states cannot always turn off the thoughts quickly. SW asked pt how she is able to turn off the thoughts and pt states I think about something else. SW asked pt what she thinks about. Pt states my cats, but don't have them anymore. SW asked pt what else she can think about since she doesn't have her cays anymore and pt states inspirational/positive quotes and sayings and pictures. SW asked pt about hobbies she likes to do and pt states she likes to do horseback riding. SW asked pt what keeps her from planning suicide or committing suicide and pt states God. Pt states yarsanism plays a big part in her life. Pt states that she also talks to her younger sister, who is two months younger than her. Pt denied any current suicidal thoughts/plans/ideations. Pt confirms again that she is from [facility] and plan is to return at discharge. Pt states she is having another surgery on Tuesday. SW informed pt that this worker will keep [facility] updated. Pt states understanding. SW will provide pt with bereavement/grief counseling resources. Celeste Walton CREW LEADER, FOUNDER AND CHIEF TECHNICAL OFFICER
--- NOTE | 2020-08-06 16:08 | CHAPLAIN ---
Type of Pastoral Visit _x__ Initial Visit ___ Follow-up Visit ___ On-call Visit ___ General Patient Visit ___ Spiritual Assessment ___ Family Conference ___ Bereavement ___ Rapid Response ___ Code Blue ___ Other (describe below) Pastoral Care Referral From _x__ Patient ___ Family ___ Nurse ___ Physician ___ Administrative Executive ___ Jalousies Installer ___ Other (describe below) Sacrament/Intervention _x__ Active listening ___ Anointing ___ Buddhism ___ Bereavement ___ Communion ___ Meenakshi exploration ___ _x__ Life review _x__ Prayer ___ Reconciliation ___ Sacrament of Sick _x__ Supportive presence ___ Wedding ___ Other (describe below) Pastoral Comments patient states I've been praying a lot and tells about her recent health and then also the recent of her fiance; pt also speaks of changes coming to where she is going to live which is back in the [facility] which I don't like; pt given time to talk and express herself; affirm patient desire to seek God's help; pt requests prayer
[2020-08-06 17:21] LABS: Bedside Glucose 118 mg/dL (70-110)
[2020-08-06 20:43] VITALS: BP 121/68; PULSE 86; RESP 20; TEMP 36.6; O2SAT 97
[2020-08-06 21:00] VITALS: O2SAT 92
[2020-08-06] MEDS: Doxazosin 1 MG Tablet 2 MG PO (23:36)
[2020-08-07] VITALS (8 sets, daily range): BP systolic 117–148; BP diastolic 52–62; PULSE 78–95; RESP 16–18; TEMP 36.5–37.2; O2SAT 84–96
[2020-08-07 00:30] LABS: Bedside Glucose 111 mg/dL (70-110)
[2020-08-07] MEDS: Enoxaparin 40 MG/0.4 ML Syringe SC (06:06)
[2020-08-07 07:12] LABS: Absolute Lymphocyte Count 1.24 X10^3/uL (0.83-4.51); Absolute Neutrophil Count 11.1 X10^3/uL (2.0-7.7); Basophil# 0.05 X10^3/uL; Basophil% 0.4 % (0-1); Eosinophil# 0.75 X10^3/uL; Eosinophils% 5.3 % (0-5); Hematocrit 30.8 % (37-47); Hemoglobin 8.8 g/dL (12.0-15.0); Lymphocyte # 1.24 X10^3/ul (4.0); Lymphocyte % 8.8 % (19-41); Mean Corp Hgb Conc 28.6 g/dL (32-36); Mean Corpuscular Hgb 26.4 pg (27.0-32.0); Mean Corpuscular Volume 92.5 fL (81-99); Mean Platelet Vol. 10.1 fl (6.2-12.0); Monocyte# 0.94 X10^3/uL; Monocyte% 6.6 % (0-10); NRBC Flagged by Analyzer 0 % (0-5); Neutrophil % 78.3 % (47-70); Platelet Count 375 K/mm3 (150-450); RBC Distribution Width SD 54.5 fl (35.1-43.9); Red Blood Count 3.33 M/mm3 (4.2-5.4); White Blood Count 14.2 K/mm3 (4.4-11.0)
[2020-08-07 07:37] LABS: Anion Gap 4 (5-15); BUN 25 mg/dL (7-18); BUN/Creat Ratio 14.9 RATIO (10-20); Calcium,Total 8.2 mg/dL (8.5-10.1); Chloride 111 mmol/L (98-107); Creatinine, Serum 1.68 mg/dL (0.55-1.02); EST Glomerular Filtration Rate 34 mL/min (>60); Est Glom Filt Rate - Afr Amer 41 mL/min (>60); Estimated Creatinine Clearance 35.25 ml/min; Glucose 140 mg/dL (74-106); Potassium 4.9 mmol/L (3.5-5.1); Sodium Level 142 mmol/L (136-145)
[2020-08-07 07:40] LABS: Vancomycin, Random Level 24.3 ug/mL (0.0-15.0)
[2020-08-07] MEDS: oxyCODONE 5 MG Tablet PO ×3 (08:04→18:57)
--- NOTE | 2020-08-07 08:13 | PCM.PROGNOTE ---
Patient Problems: Active and Suspected Problems (Last Reviewed 08/04/20 @ 21:07 by Zuleyka Donald, MANDI-C) Hypoxia (Acute) secondary to COPD with altered mental status Open left ankle fracture (Acute) Leukocytosis (Acute) Subjective: This patient was seen bedside this morning for follow up of open chronic dislocated ankle fracture with exposed one and presumed osteomyelitis. Her pain is rated as 8/10. She denies fever, chills, nausea, vomiting, shortness of breath or chest pain. She had a picc line placed yesterday. - Physical Exam Vitals/I&O's: Vital Signs Temp Pulse Resp BP Pulse Ox 98.2 F 95 16 148/58 H 95 08/07/20 03:32 08/07/20 03:32 08/07/20 03:32 08/07/20 03:32 08/07/20 07:06 Oxygen Flow Rate (L/min) 2 Oxygen Delivery Method Nasal Cannula Weight: 86.5 kg Body Mass Index (BMI) 31.4 Finger Stick Blood Glucose 154 Intake and Output for Last 24 Hours 08/05/20 08/06/20 08/07/20 23:59 23:59 23:59 Intake Total 4150 / 4150 2255.25 / 2255.25 50 / 50 Output Total 900 / 900 550 / 550 Balance 3250 / 3250 1705.25 / 1705.25 50 / 50 General: Alert, Oriented x3, Cooperative HEENT: Atraumatic Extremities: Capillary Refill Less than 3 Seconds - all digits bilateral, No Calf Tenderness - Negative Moraes sign bilateral, Peripheral Pulses Normal - DP, left and right, - - Right limb evaluated also with inability to dorsiflex ankle to neutral position (-10 degrees), reducible hindfoot in frontal plane, with subtalar joint neutral the forefoot to rearfoot position is in varus with only partial soft tissue reduction available Skin: - - Dressing left limb is clean dry and intact without adjacent erythema, streaking, or odor. Musculoskeletal: - - Left lower extremity is in a rectus position with splint intact without evidence of strikethrough. No distinct genu recurvatum is noted bilateral. Active range of motion all digits x10. Neurological: Sensory exam intact to light touch and pain Psych/Mental Status: Normal Affect, Appropriate Microbiology Past 72 Hours 08/04/20 17:55 Blood Culture (Wb) - Anticubital Left Blood Culture - Preliminary No growth in 48 hours. 08/04/20 17:50 Blood Culture (Wb) - Anticubital Right Blood Culture - Preliminary No growth in 48 hours. 08/05/20 Unknown Bone - Other Gram Stain - Final 08/05/20 Unknown Bone - Other Wound Culture - Preliminary Gram positive organism 08/05/20 Unknown Wound Abcess - Aerobic & Anaerobic Swabs Gram Stain - Final 08/04/20 18:00 Mucosa - Nose SARS-CoV-2 Antigen (Rapid) - Final Laboratory Results 08/06/20 06:24: Vitamin D 25-Hydroxy 40.0 08/06/20 08:45: POC Glucose 168 H 08/06/20 11:13: POC Glucose 195 H 08/06/20 17:11: POC Glucose 118 H 08/06/20 23:44: POC Glucose 111 H 08/07/20 06:30: WBC 14.2 H, RBC 3.33 L, Hgb 8.8 L, Hct 30.8 L, MCV 92.5, MCH 26.4 L, MCHC 28.6 L, RDW Std Deviation 54.5 H, RDW Coeff of Krista 16.0 H, Plt Count 375, MPV 10.1, Immature Gran % (Auto) 0.600, Neut % (Auto) 78.3 H, Lymph % (Auto) 8.8 L, [place] % (Auto) 6.6, Eos % (Auto) 5.3 H, Baso % (Auto) 0.4, Absolute Neuts (auto) 11.1 H, Absolute Lymphs (auto) 1.24, Nucleated RBC % 0 08/07/20 06:30: Sodium 142, Potassium 4.9, Chloride 111 H, Carbon Dioxide 27.0, Anion Gap 4 L, BUN 25 H, Creatinine 1.68 H, Estim Creat Clear Calc 35.25, Est GFR (MDRD) Af Amer 41 L, Est GFR (MDRD) Non-Af 34 L, BUN/Creatinine Ratio 14.9, Glucose 140 H, Calcium 8.2 L 08/07/20 06:30: Random Vancomycin 24.3 H Current Medications Acetaminophen (Acetaminophen 325 Mg Tablet) 650 mg PO Q6H PRN PRN PRN Reason: Pain Score 1-10/Temp > 100.7 F Last Admin: 08/06/20 14:33 Dose: 650 mg Documented by: Ascorbic Acid (Ascorbic Acid 500 Mg Tablet) 500 mg PO DAILY [facility] Last Admin: 08/06/20 08:42 Dose: 500 mg Documented by: Docusate Sodium (Docusate Sodium 100 Mg Capsule) 100 mg PO BID PRN PRN PRN Reason: Constipation Last Admin: 08/06/20 14:34 Dose: 100 mg Documented by: Doxazosin Mesylate (Doxazosin 1 Mg Tablet) 2 mg PO QHS [facility] Last Admin: 08/06/20 23:36 Dose: 2 mg Documented by: Duloxetine HCl (Duloxetine Hcl 30 Mg Capsule) 30 mg PO BID [facility] Last Admin: 08/06/20 23:37 Dose: 30 mg Documented by: Enoxaparin Sodium (Enoxaparin 40 Mg/0.4 Ml Syringe) 40 mg SC DAILY@0600 [facility] Last Admin: 08/07/20 06:06 Dose: 40 mg Documented by: Ergocalciferol (Ergocalciferol 50,000 Unit Capsule) 50,000 unit PO Fr@1000 [facility] Furosemide (Furosemide 40 Mg Tablet) 40 mg PO DAILY [facility] Last Admin: 08/06/20 08:41 Dose: 40 mg Documented by: Piperacillin Sod/Tazobactam (Sod 3.375 gm/ Sodium Chloride) 50 mls @ 12.5 mls/hr IV Q8 [facility] Last Admin: 08/07/20 06:01 Dose: 12.5 mls/hr Documented by: Vancomycin IV Pharmacy to Dose (1 each/ Sodium Chloride) 500 mls @ 250 mls/hr IV X1 PRN; Protocol PRN Reason: Rx to Dose Dextrose/Sodium Chloride (Dextrose 5%/0.9% Nacl) 1,000 mls @ 75 mls/hr IV .[id number] [facility] Last Admin: 08/06/20 21:01 Dose: 75 mls/hr Documented by: Sodium Chloride () 250 mls @ 15 mls/hr IV .[id number] PRN PRN Reason: Saline Flush Last Infusion: 08/06/20 18:52 Dose: 15 mls/hr Documented by: Insulin Glargine (Insulin Glargine 100 Units/Ml Pen) 22 units SC 1100,2200 [facility] Last Admin: 08/06/20 23:45 Dose: Not Given Documented by: Insulin Human Lispro (Insulin Lispro 100 Unit/Ml Insuln.Pen) 0 unit SC ACHS [facility]; Protocol Last Admin: 08/06/20 23:45 Dose: Not Given Documented by: Insulin Human Lispro (Insulin Lispro 100 Unit/Ml Insuln.Pen) 13 unit SC 0800,1200,1700 [facility] Last Admin: 08/06/20 17:15 Dose: 13 unit Documented by: Levetiracetam (Levetiracetam 500 Mg Tablet) 500 mg PO BID [facility] Last Admin: 08/06/20 23:37 Dose: 500 mg Documented by: Morphine Sulfate (Morphine 2 Mg/Ml Syringe) 2 mg IV Q3H PRN PRN PRN Reason: Pain Score 6-10 Last Admin: 08/06/20 20:45 Dose: 2 mg Documented by: Ondansetron HCl (Ondansetron 4 Mg/2 Ml Vial) 4 mg IV Q8H PRN PRN PRN Reason: NAUSEA/VOMITING Last Admin: 08/05/20 10:39 Dose: 4 mg Documented by: Oxycodone HCl (Oxycodone 5 Mg Tablet) 5 mg PO Q4H PRN PRN PRN Reason: Pain Score 4-5 Last Admin: 08/06/20 23:49 Dose: 5 mg Documented by: Pregabalin (Pregabalin 50 Mg Capsule) 100 mg PO BID [facility] Last Admin: 08/06/20 23:41 Dose: 100 mg Documented by: Risperidone (Risperidone 0.25 Mg Tablet) 0.25 mg PO BID [facility] Last Admin: 08/06/20 23:38 Dose: 0.25 mg Documented by: Sodium Chloride (0.9% Saline Lock 10 Ml Syringe) 10 - 40 ml IV UD PRN PRN Reason: SALINE FLUSH Last Admin: 08/06/20 23:50 Dose: 10 ml Documented by: Tolterodine Tartrate (Tolterodine Tartrate 2 Mg Cap.Sa) 2 mg PO DAILY [facility] Last Admin: 08/06/20 08:41 Dose: 2 mg Documented by: Medical Necessity - Tobacco Use Smoking Status: Current every day smoker Tobacco Use: Cigarettes Assessment/Plan All Active Problems (Last Reviewed 08/04/20 @ 21:07 by Zuleyka Donald NP-C) Acute electrocardiogram changes (Acute) Hypoxia (Acute) Fracture tibia/fibula (Acute) Open left ankle fracture (Acute) Hyperglycemia (Acute) Dehydration (Acute) Leukocytosis (Acute) Altered level of consciousness (Acute) Hyperglycemia due to type 2 diabetes mellitus (Acute) Hypoxemia (Acute) MICHELE (acute kidney injury) (Acute) HHNC (hyperglycemic hyperosmolar nonketotic coma) (Acute) Left chronic ankle open fracture dislocation s/p wound debridement, bone biopsy, and temporary reduction Osteomyelitis with open bone exposed estimated within the past month Diabetes with neuropathy (A1c 8%) Tobacco use Vitamin D deficiency Other medical comorbidities: history of seizure disorder, schizophrenia, anxiety, depression, COPD Patient was seen and examined today. Dressing and splint are clean, dry, and intact. She is afebrile and vital signs are stable. She has an unstable ankle that was previously fractured, dislocated, and neglected for an estimated time frame of a month. She also had exposed bone with positive microbiology culture results which she will be treated for open fracture osteomyelitis at this time. Prior imaging including xrays and CT scan were reviewed. Infectious disease is also on consult. PICC line was placed and she is on broad-spectrum vancomycin and Zosyn. Initial bone biopsy pathology report is still pending. Staged stability surgery is planned for tomorrow. We discussed internal versus external fixation options. Debridement irrigation and initial reduction of ankle was completed. Additional deformity correction and placement of external fixation with application of bone marrow aspirate and potential advanced wound healing product to the medial wound is planned. The preoperative indications, planned procedure, goals, benefits, risks and complications were discussed in detail. No guarantees were made. She understands and elects to proceed with surgery at this time. She understands risks and complications include but are not limited to the following: pain, swelling, scarring, delayed or non healing, infection, blood clot, allergic reaction, hardware failure, need for revisional or staged surgery, loss of limb, function, or lift. We discussed the anticipated time the external fixation device will be in place and potential additional needed staged procedures and progression back to ambulation. She may require additional wound care techniques also. Surgical consents will be signed. I answered her questions. This is tentatively planned for tomorrow with general and regional anesthesia. This was discussed while she was not on additional pain medication and she participated freely during this conversation and asked additional questions. Preoperative orders will be placed. This is a limb salvage case and she is still moderate to high level risk for limb loss and amputation. Preoperative optimization and medical management per hospitalist service is greatly appreciated. A1C recently improved to 8% and tobacco cessation while at facility. Her Vitamin D was 40. Given her upcoming need for bone healing and suspected charcot related etiology to this injury, I recommend supplementation with a goal range of 60. Strict nonweightbearing to left lower extremity Discharge planning includes antibiotics and SNF placement for rehabilitation. Please do not hesitate to call if you have any questions. Vicki Allred DPM, [facility] [phone]
[2020-08-07] MEDS: Insulin Lispro 100 UNIT/ML INSULN.PEN 13 UNIT SC ×3 (08:21→17:13)
[2020-08-07] MEDS: Furosemide 40 MG Tablet PO (08:23)
[2020-08-07] MEDS: Pregabalin 50 MG Capsule 100 MG PO ×2 (08:23→22:07)
[2020-08-07] MEDS: RisperiDONE 0.25 MG Tablet PO ×2 (08:23→22:04)
[2020-08-07] MEDS: levETIRAcetam 500 MG Tablet PO ×2 (08:24→22:04)
[2020-08-07] MEDS: Tolterodine Tartrate 2 MG CAP.SA PO (08:24)
[2020-08-07] MEDS: Ascorbic Acid 500 MG Tablet PO (08:24)
[2020-08-07] MEDS: DULoxetine Hcl 30 MG Capsule PO ×2 (08:24→22:04)
[2020-08-07 08:51] LABS: Bedside Glucose 137 mg/dL (70-110)
--- NOTE | 2020-08-07 09:50 | PCM.PN.ID ---
Patient Problems: Active and Suspected Problems (Last Reviewed 08/04/20 @ 21:07 by Zuleyka Donald IT SUPPORT MANAGER-C) Hypoxia (Acute) secondary to COPD with altered mental status Open left ankle fracture (Acute) Leukocytosis (Acute) Subjective: Feeling ok, no fever, no n/v/d. OR planned for tomorrow. - Physical Exam Vitals/I&O's: Vital Signs Temp Pulse Resp BP Pulse Ox 98.2 F 95 16 148/58 H 95 08/07/20 03:32 08/07/20 03:32 08/07/20 03:32 08/07/20 03:32 08/07/20 07:06 Oxygen Flow Rate (L/min) 2 Oxygen Delivery Method Nasal Cannula Weight: 86.5 kg Body Mass Index (BMI) 31.4 Finger Stick Blood Glucose 154 Intake and Output for Last 24 Hours 08/05/20 08/06/20 08/07/20 23:59 23:59 23:59 Intake Total 4150 / 4150 2255.25 / 2255.25 217 / 217 Output Total 900 / 900 550 / 550 Balance 3250 / 3250 1705.25 / 1705.25 217 / 217 General: Alert, Cooperative, No apparent distress Lungs: Clear to auscultation, Normal air movement Cardiovascular: Regular rate, Regular Rhythm Abdomen: Soft, Non Tender, Non-Distended Skin: Ulcer/ Wound Microbiology Past 72 Hours 08/04/20 18:00 Wound - Left Foot Anaerobic Culture - Preliminary Checking for anaerobes, further studies to follow. 08/05/20 Unknown Wound Abcess - Aerobic & Anaerobic Swabs Gram Stain - Final 08/05/20 Unknown Wound Abcess - Aerobic & Anaerobic Swabs Anaerobic Culture - Preliminary 08/05/20 Unknown Bone - Other Gram Stain - Final 08/05/20 Unknown Bone - Other Wound Culture - Preliminary Gram positive organism 08/05/20 Unknown Bone - Other Anaerobic Culture - Preliminary Checking for anaerobes, further studies to follow. 08/04/20 17:55 Blood Culture (Wb) - Anticubital Left Blood Culture - Preliminary No growth in 48 hours. 08/04/20 17:50 Blood Culture (Wb) - Anticubital Right Blood Culture - Preliminary No growth in 48 hours. 08/04/20 18:00 Mucosa - Nose SARS-CoV-2 Antigen (Rapid) - Final Laboratory Results 08/06/20 06:24: Vitamin D 25-Hydroxy 40.0 08/06/20 11:13: POC Glucose 195 H 08/06/20 17:11: POC Glucose 118 H 08/06/20 23:44: POC Glucose 111 H 08/07/20 06:30: WBC 14.2 H, RBC 3.33 L, Hgb 8.8 L, Hct 30.8 L, MCV 92.5, MCH 26.4 L, MCHC 28.6 L, RDW Std Deviation 54.5 H, RDW Coeff of Krista 16.0 H, Plt Count 375, MPV 10.1, Immature Gran % (Auto) 0.600, Neut % (Auto) 78.3 H, Lymph % (Auto) 8.8 L, [place] % (Auto) 6.6, Eos % (Auto) 5.3 H, Baso % (Auto) 0.4, Absolute Neuts (auto) 11.1 H, Absolute Lymphs (auto) 1.24, Nucleated RBC % 0 08/07/20 06:30: Sodium 142, Potassium 4.9, Chloride 111 H, Carbon Dioxide 27.0, Anion Gap 4 L, BUN 25 H, Creatinine 1.68 H, Estim Creat Clear Calc 35.25, Est GFR (MDRD) Af Amer 41 L, Est GFR (MDRD) Non-Af 34 L, BUN/Creatinine Ratio 14.9, Glucose 140 H, Calcium 8.2 L 08/07/20 06:30: Random Vancomycin 24.3 H 08/07/20 08:18: POC Glucose 137 H Current Medications Acetaminophen (Acetaminophen 325 Mg Tablet) 650 mg PO Q6H PRN PRN PRN Reason: Pain Score 1-10/Temp > 100.7 F Last Admin: 08/06/20 14:33 Dose: 650 mg Documented by: Ascorbic Acid (Ascorbic Acid 500 Mg Tablet) 500 mg PO DAILY [facility] Last Admin: 08/07/20 08:24 Dose: 500 mg Documented by: Docusate Sodium (Docusate Sodium 100 Mg Capsule) 100 mg PO BID PRN PRN PRN Reason: Constipation Last Admin: 08/06/20 14:34 Dose: 100 mg Documented by: Doxazosin Mesylate (Doxazosin 1 Mg Tablet) 2 mg PO QHS [facility] Last Admin: 08/06/20 23:36 Dose: 2 mg Documented by: Duloxetine HCl (Duloxetine Hcl 30 Mg Capsule) 30 mg PO BID [facility] Last Admin: 08/07/20 08:24 Dose: 30 mg Documented by: Enoxaparin Sodium (Enoxaparin 40 Mg/0.4 Ml Syringe) 40 mg SC DAILY@0600 [facility] Last Admin: 08/07/20 06:06 Dose: 40 mg Documented by: Ergocalciferol (Ergocalciferol 50,000 Unit Capsule) 50,000 unit PO Fr@1000 [facility] Furosemide (Furosemide 40 Mg Tablet) 40 mg PO DAILY [facility] Last Admin: 08/07/20 08:23 Dose: 40 mg Documented by: Piperacillin Sod/Tazobactam (Sod 3.375 gm/ Sodium Chloride) 50 mls @ 12.5 mls/hr IV Q8 [facility] Last Admin: 08/07/20 06:01 Dose: 12.5 mls/hr Documented by: Vancomycin IV Pharmacy to Dose (1 each/ Sodium Chloride) 500 mls @ 250 mls/hr IV X1 PRN; Protocol PRN Reason: Rx to Dose Dextrose/Sodium Chloride (Dextrose 5%/0.9% Nacl) 1,000 mls @ 75 mls/hr IV .[id number] [facility] Last Admin: 08/06/20 21:01 Dose: 75 mls/hr Documented by: Sodium Chloride () 250 mls @ 15 mls/hr IV .[id number] PRN PRN Reason: Saline Flush Last Infusion: 08/07/20 06:00 Dose: 0 mls/hr Documented by: Insulin Glargine (Insulin Glargine 100 Units/Ml Pen) 22 units SC 1100,2200 [facility] Last Admin: 08/06/20 23:45 Dose: Not Given Documented by: Insulin Human Lispro (Insulin Lispro 100 Unit/Ml Insuln.Pen) 0 unit SC ACHS [facility]; Protocol Last Admin: 08/07/20 08:22 Dose: Not Given Documented by: Insulin Human Lispro (Insulin Lispro 100 Unit/Ml Insuln.Pen) 13 unit SC 0800,1200,1700 [facility] Last Admin: 08/07/20 08:21 Dose: 13 unit Documented by: Levetiracetam (Levetiracetam 500 Mg Tablet) 500 mg PO BID [facility] Last Admin: 08/07/20 08:24 Dose: 500 mg Documented by: Morphine Sulfate (Morphine 2 Mg/Ml Syringe) 2 mg IV Q3H PRN PRN PRN Reason: Pain Score 6-10 Last Admin: 08/06/20 20:45 Dose: 2 mg Documented by: Ondansetron HCl (Ondansetron 4 Mg/2 Ml Vial) 4 mg IV Q8H PRN PRN PRN Reason: NAUSEA/VOMITING Last Admin: 08/05/20 10:39 Dose: 4 mg Documented by: Oxycodone HCl (Oxycodone 5 Mg Tablet) 5 mg PO Q4H PRN PRN PRN Reason: Pain Score 4-5 Last Admin: 08/07/20 08:04 Dose: 5 mg Documented by: Pregabalin (Pregabalin 50 Mg Capsule) 100 mg PO BID [facility] Last Admin: 08/07/20 08:23 Dose: 100 mg Documented by: Risperidone (Risperidone 0.25 Mg Tablet) 0.25 mg PO BID [facility] Last Admin: 08/07/20 08:23 Dose: 0.25 mg Documented by: Sodium Chloride (0.9% Saline Lock 10 Ml Syringe) 10 - 40 ml IV UD PRN PRN Reason: SALINE FLUSH Last Admin: 08/06/20 23:50 Dose: 10 ml Documented by: Tolterodine Tartrate (Tolterodine Tartrate 2 Mg Cap.Sa) 2 mg PO DAILY [facility] Last Admin: 08/07/20 08:24 Dose: 2 mg Documented by: Medical Necessity - Tobacco Use Smoking Status: Current every day smoker Tobacco Use: Cigarettes Route of nutrition/ use of supplements: [] Nutritional Intake: [] IV Site: [] Morales Catheter: [] - Assessment/Plan Antibiotics: [] Assessment/Plan: [] Active and Suspected Problems (Last Reviewed 08/04/20 @ 21:07 by Zuleyka Donald, IT SUPPORT MANAGER-C) Hypoxia (Acute) secondary to COPD with altered mental status Open left ankle fracture (Acute) Leukocytosis (Acute) L ankle osteo - now s/p I&D by Dr. Doyle 08/05/20. Bone cx with gram pos so far. On vanc/zosyn, OR with external fixation planned for tomorrow. New MICHELE, mildly elevated vanc trough. Will follow, d/w Dr. Doyle
[2020-08-07 11:30] LABS: Bedside Glucose 119 mg/dL (70-110)
[2020-08-07] MEDS: Acetaminophen 325 MG Tablet 650 MG PO ×2 (12:30→18:57)
--- NOTE | 2020-08-07 14:30 | CASEMGMT ---
Social Work Note Pt is having surgery tomorrow. APRIL placed a call to Liz at [facility] and updated her. Pt's insurances are still waiving pre-certs until 08/13/2020 so if pt is medically ready over the weekend, pt will be able to admit to [facility] over the weekend. APRIL faxed updated clinicals to [facility]. Plan: Return to [facility] when medically cleared Celeste Walton CREDIT RATING INSPECTOR, DANCE HISTORIAN
--- NOTE | 2020-08-07 14:33 | PCM.PN.HOSP ---
Patient Problems: Active and Suspected Problems (Last Reviewed 08/04/20 @ 21:07 by Zuleyka Donald, CARDING MACHINE OPERATOR-C) Hypoxia (Acute) secondary to COPD with altered mental status Open left ankle fracture (Acute) Leukocytosis (Acute) Subjective: Patient seen and examined. She complains of 8/10 pain in her foot. Review of systems is otherwise negative. She remains hemodynamically stable. Podiatry wants to take patient to surgery tomorrow for external fixation. Vitals/I&O's: Vital Signs Temp Pulse Resp BP Pulse Ox 99 F 86 18 117/62 93 08/07/20 09:30 08/07/20 09:30 08/07/20 09:30 08/07/20 09:30 08/07/20 09:30 Oxygen Flow Rate (L/min) 2 Oxygen Delivery Method Nasal Cannula Weight: 190 lb 11.198 oz Body Mass Index (BMI) 31.4 Finger Stick Blood Glucose 154 Intake and Output for Last 24 Hours 08/05/20 08/06/20 08/07/20 23:59 23:59 23:59 Intake Total 4150 / 4150 2255.25 / 2255.25 267 / 267 Output Total 900 / 900 550 / 550 Balance 3250 / 3250 1705.25 / 1705.25 267 / 267 General: Alert, Oriented x3, Cooperative, No apparent distress HEENT: Atraumatic, PERRLA, EOMI, Normocephalic Oral: Dry Mucosa Neck: Supple, No JVD, Negative Carotid Bruits Lungs: - - diminished breath sounds bibasally, no wheezes or crackles. on 2L of oxygen Cardiovascular: Regular rate, Regular Rhythm, Normal S1, Normal S2, No murmurs Abdomen: Bowel Sounds Present, Soft, Non Tender, Non-Distended, No Hepato-splenomegaly Extremities: No clubbing, No cyanosis, No edema, Capillary Refill Less than 3 Seconds Skin: - - LLE wrapped in jarett bandage Musculoskeletal: No Tenderness to Palpation of Joints or Extremities Lymphatic: No Cervical, Supraclavicular, or Inguinal Adenopathy Neurological: Cranial nerves II-XII grossly intact, Neuro grossly intact, Motor Exam 5/5 strength throughout Psych/Mental Status: Normal Affect, Appropriate, Alert and oriented to time, place, person, mood and affect Microbiology Past 72 Hours 08/05/20 Unknown Bone - Other Gram Stain - Final 08/05/20 Unknown Bone - Other Wound Culture - Preliminary Coag Negative Staph Gram positive nilda 08/05/20 Unknown Bone - Other Anaerobic Culture - Preliminary Checking for anaerobes, further studies to follow. 08/05/20 Unknown Wound Abcess - Aerobic & Anaerobic Swabs Gram Stain - Final 08/05/20 Unknown Wound Abcess - Aerobic & Anaerobic Swabs Wound Culture - Preliminary No growth-Final to follow 08/04/20 18:00 Wound - Left Foot Anaerobic Culture - Preliminary Checking for anaerobes, further studies to follow. 08/04/20 17:55 Blood Culture (Wb) - Anticubital Left Blood Culture - Preliminary No growth in 48 hours. 08/04/20 17:50 Blood Culture (Wb) - Anticubital Right Blood Culture - Preliminary No growth in 48 hours. 08/04/20 18:00 Mucosa - Nose SARS-CoV-2 Antigen (Rapid) - Final Laboratory Results 08/06/20 06:24: Vitamin D 25-Hydroxy 40.0 08/06/20 17:11: POC Glucose 118 H 08/06/20 23:44: POC Glucose 111 H 08/07/20 06:30: WBC 14.2 H, RBC 3.33 L, Hgb 8.8 L, Hct 30.8 L, MCV 92.5, MCH 26.4 L, MCHC 28.6 L, RDW Std Deviation 54.5 H, RDW Coeff of Krista 16.0 H, Plt Count 375, MPV 10.1, Immature Gran % (Auto) 0.600, Neut % (Auto) 78.3 H, Lymph % (Auto) 8.8 L, [place] % (Auto) 6.6, Eos % (Auto) 5.3 H, Baso % (Auto) 0.4, Absolute Neuts (auto) 11.1 H, Absolute Lymphs (auto) 1.24, Nucleated RBC % 0 08/07/20 06:30: Sodium 142, Potassium 4.9, Chloride 111 H, Carbon Dioxide 27.0, Anion Gap 4 L, BUN 25 H, Creatinine 1.68 H, Estim Creat Clear Calc 35.25, Est GFR (MDRD) Af Amer 41 L, Est GFR (MDRD) Non-Af 34 L, BUN/Creatinine Ratio 14.9, Glucose 140 H, Calcium 8.2 L 08/07/20 06:30: Random Vancomycin 24.3 H 08/07/20 08:18: POC Glucose 137 H 08/07/20 11:18: POC Glucose 119 H Diagnostic Data Lower Extremity CT 08/04/20 17:28 IMPRESSION: Severely comminuted and displaced fractures of the medial and lateral malleoli with incomplete healing as well as tibiotalar dislocation. Electronically Signed: Edgar Mendoza MD at 18:43 EDT Tel , Service support , Chest X-Ray 08/04/20 18:20 IMPRESSION: Right lower lobe infiltrate or atelectasis. Discoid atelectasis in left lower lobe Electronically Signed: Luther Santos MD at 18:54 EDT , Service support , Ankle X-Ray 08/05/20 17:23 IMPRESSION: Malalignment with sclerosis and hyperostosis from healing but with the malalignment with arthritis. K wire fixation. at 2321 Reported and signed by: David Carvajal MD Electronically Signed: David Carvajal MD at 23:20 EDT Tel , Service support , Current Medications Acetaminophen (Acetaminophen 325 Mg Tablet) 650 mg PO Q6H PRN PRN PRN Reason: Pain Score 1-10/Temp > 100.7 F Last Admin: 08/07/20 12:30 Dose: 650 mg Documented by: Ascorbic Acid (Ascorbic Acid 500 Mg Tablet) 500 mg PO DAILY [facility] Last Admin: 08/07/20 08:24 Dose: 500 mg Documented by: Docusate Sodium (Docusate Sodium 100 Mg Capsule) 100 mg PO BID PRN PRN PRN Reason: Constipation Last Admin: 08/06/20 14:34 Dose: 100 mg Documented by: Doxazosin Mesylate (Doxazosin 1 Mg Tablet) 2 mg PO QHS [facility] Last Admin: 08/06/20 23:36 Dose: 2 mg Documented by: Duloxetine HCl (Duloxetine Hcl 30 Mg Capsule) 30 mg PO BID [facility] Last Admin: 08/07/20 08:24 Dose: 30 mg Documented by: Enoxaparin Sodium (Enoxaparin 40 Mg/0.4 Ml Syringe) 40 mg SC DAILY@0600 [facility] Last Admin: 08/07/20 06:06 Dose: 40 mg Documented by: Ergocalciferol (Ergocalciferol 50,000 Unit Capsule) 50,000 unit PO Fr@1000 [facility] Furosemide (Furosemide 40 Mg Tablet) 40 mg PO DAILY [facility] Last Admin: 08/07/20 08:23 Dose: 40 mg Documented by: Piperacillin Sod/Tazobactam (Sod 3.375 gm/ Sodium Chloride) 50 mls @ 12.5 mls/hr IV Q8 [facility] Last Infusion: 08/07/20 11:21 Dose: Infused Documented by: Vancomycin IV Pharmacy to Dose (1 each/ Sodium Chloride) 500 mls @ 250 mls/hr IV X1 PRN; Protocol PRN Reason: Rx to Dose Dextrose/Sodium Chloride (Dextrose 5%/0.9% Nacl) 1,000 mls @ 75 mls/hr IV .[id number] [facility] Last Admin: 08/06/20 21:01 Dose: 75 mls/hr Documented by: Sodium Chloride () 250 mls @ 15 mls/hr IV .[id number] PRN PRN Reason: Saline Flush Last Infusion: 08/07/20 11:21 Dose: 15 mls/hr Documented by: Insulin Glargine (Insulin Glargine 100 Units/Ml Pen) 22 units SC 1100,2200 [facility] Last Admin: 08/07/20 11:21 Dose: 22 units Documented by: Insulin Human Lispro (Insulin Lispro 100 Unit/Ml Insuln.Pen) 0 unit SC ACHS [facility]; Protocol Last Admin: 08/07/20 11:20 Dose: Not Given Documented by: Insulin Human Lispro (Insulin Lispro 100 Unit/Ml Insuln.Pen) 13 unit SC 0800,1200,1700 [facility] Last Admin: 08/07/20 11:20 Dose: 13 unit Documented by: Levetiracetam (Levetiracetam 500 Mg Tablet) 500 mg PO BID [facility] Last Admin: 08/07/20 08:24 Dose: 500 mg Documented by: Morphine Sulfate (Morphine 2 Mg/Ml Syringe) 2 mg IV Q3H PRN PRN PRN Reason: Pain Score 6-10 Last Admin: 08/06/20 20:45 Dose: 2 mg Documented by: Ondansetron HCl (Ondansetron 4 Mg/2 Ml Vial) 4 mg IV Q8H PRN PRN PRN Reason: NAUSEA/VOMITING Last Admin: 08/05/20 10:39 Dose: 4 mg Documented by: Oxycodone HCl (Oxycodone 5 Mg Tablet) 5 mg PO Q4H PRN PRN PRN Reason: Pain Score 4-5 Last Admin: 08/07/20 12:31 Dose: 5 mg Documented by: Pregabalin (Pregabalin 50 Mg Capsule) 100 mg PO BID [facility] Last Admin: 08/07/20 08:23 Dose: 100 mg Documented by: Risperidone (Risperidone 0.25 Mg Tablet) 0.25 mg PO BID [facility] Last Admin: 08/07/20 08:23 Dose: 0.25 mg Documented by: Sodium Chloride (0.9% Saline Lock 10 Ml Syringe) 10 - 40 ml IV UD PRN PRN Reason: SALINE FLUSH Last Admin: 08/06/20 23:50 Dose: 10 ml Documented by: Tolterodine Tartrate (Tolterodine Tartrate 2 Mg Cap.Sa) 2 mg PO DAILY [facility] Last Admin: 08/07/20 08:24 Dose: 2 mg Documented by: Medical Necessity - Tobacco Use Smoking Status: Current every day smoker Tobacco Use: Cigarettes Assessment/Plan All Active Problems (Last Reviewed 08/04/20 @ 21:07 by Zuleyka Donald CARDING MACHINE OPERATOR-C) Acute electrocardiogram changes (Acute) Hypoxia (Acute) Fracture tibia/fibula (Acute) Open left ankle fracture (Acute) Hyperglycemia (Acute) Dehydration (Acute) Leukocytosis (Acute) Altered level of consciousness (Acute) Hyperglycemia due to type 2 diabetes mellitus (Acute) Hypoxemia (Acute) MICHELE (acute kidney injury) (Acute) HHNC (hyperglycemic hyperosmolar nonketotic coma) (Acute) #Left ankle wound due to open left ankle fracture on IV vancomycin and zosyn wbc today is 14.[address] showed severely comminuted and displaced fractures of the medial and lateral malleoli with incomplete healing as well as tibiotalar dislocation today is POD 2 for debridement of left ankle open fracture and stabilization of fracture on tylenol, oxycodone and morphine for pain for application of external fixator by podiatry tomorrow #Chronic hypoxic respiratory failure due to COPD breathing Treatments of bronchodilators. Titrate oxygen to maintain saturation above 90%. incentive spirometry #Type 2 diabetes mellitus On Lantus twice daily. Insulin sliding scale. Checks AC at bedtime. #depression and anxiety: on risperdal, and cymbalta #History of seizure disorder: On Keppra DVT Prophylaxis: Lovenox Inpatient E&M: 87154 Subs Hosp L2
[2020-08-07] MEDS: Insulin Lispro 100 UNIT/ML INSULN.PEN SC (17:12)
[2020-08-07 17:55] LABS: Bedside Glucose 191 mg/dL (70-110)
[2020-08-07] MEDS: Dextrose 5%/0.9% NaCl 1,000 ML 75 ML IV (18:56)
--- NOTE | 2020-08-07 21:06 | NURSING ---
clamp jig assembler reports emesis on the floor. clamp jig assembler reports seeing 3 pills in the emesis.
[2020-08-07] MEDS: Doxazosin 1 MG Tablet 2 MG PO (22:04)
[2020-08-07 22:16] LABS: Bedside Glucose 160 mg/dL (70-110)
[2020-08-08] VITALS (16 sets, daily range): BP systolic 89–152; BP diastolic 48–78; PULSE 81–106; RESP 16–18; TEMP 36.4–36.9; O2SAT 91–96; BMI 31.4
[2020-08-08] MEDS: Morphine 2 MG/ML Syringe IV ×3 (01:40→21:35)
[2020-08-08] MEDS: Ondansetron 4 MG/2 ML Vial IV (01:44)
[2020-08-08] MEDS: Ipratropium/Albuterol Sulfate 3 ML AMPUL.NEB INHALATION ×3 (02:45→19:17)
[2020-08-08] MEDS: Dextrose 5%/0.9% NaCl 1,000 ML 75 ML IV ×2 (05:49→16:27)
[2020-08-08] MEDS: 0.9% Saline Lock 10 ML Syringe IV (06:22)
[2020-08-08 06:33] LABS: Absolute Lymphocyte Count 1.34 X10^3/uL (0.83-4.51); Absolute Neutrophil Count 10.9 X10^3/uL (2.0-7.7); Basophil# 0.06 X10^3/uL; Basophil% 0.4 % (0-1); Eosinophil# 0.77 X10^3/uL; Eosinophils% 5.4 % (0-5); Hematocrit 32.4 % (37-47); Hemoglobin 8.9 g/dL (12.0-15.0); Lymphocyte # 1.34 X10^3/ul (4.0); Lymphocyte % 9.4 % (19-41); Mean Corp Hgb Conc 27.5 g/dL (32-36); Mean Corpuscular Hgb 26.1 pg (27.0-32.0); Mean Platelet Vol. 11.3 fl (6.2-12.0); Monocyte# 1.09 X10^3/uL; Monocyte% 7.7 % (0-10); NRBC Flagged by Analyzer 0 % (0-5); Neutrophil # 10.88 X10^3/uL (2.7-7.7); Neutrophil % 76.5 % (47-70); Platelet Count 445 K/mm3 (150-450); RBC Distribution Width SD 55.8 fl (35.1-43.9); Red Blood Count 3.41 M/mm3 (4.2-5.4); White Blood Count 14.2 K/mm3 (4.4-11.0)
[2020-08-08 06:51] LABS: Bedside Glucose 199 mg/dL (70-110)
[2020-08-08 06:57] LABS: Vancomycin, Random Level 23.6 ug/mL (0.0-15.0)
[2020-08-08 07:00] LABS: Anion Gap 6 (5-15); BUN 26 mg/dL (7-18); BUN/Creat Ratio 15.5 RATIO (10-20); Calcium,Total 7.8 mg/dL (8.5-10.1); Chloride 109 mmol/L (98-107); Creatinine, Serum 1.68 mg/dL (0.55-1.02); EST Glomerular Filtration Rate 34 mL/min (>60); Est Glom Filt Rate - Afr Amer 41 mL/min (>60); Estimated Creatinine Clearance 35.25 ml/min; Glucose 113 mg/dL (74-106); Potassium 7.3 mmol/L (3.5-5.1); Sodium Level 141 mmol/L (136-145)
--- NOTE | 2020-08-08 07:34 | NURSING ---
lab notified of stat order and request to come redraw patient.
[2020-08-08 08:09] LABS: Potassium 5.1 mmol/L (3.5-5.1)
--- NOTE | 2020-08-08 09:00 | RAD_ITS ---
STUDY: X-RAY - LEFT ANKLE REASON FOR EXAM: Female, 50 years old. Ankle arthrodesis with bone marrow asp, external fixation TECHNIQUE: 3 view(s) of the ankle. COMPARISON: None. FINDINGS: Intraoperative imaging provided for ankle arthrodesis and external fixation. RAD/Ankle min 3 Views IMPRESSION: Intraoperative image provided for ankle arthrodesis and external fixation. Electronically Signed: Carlos Borges MD at 15:10 EDT , Service support ,
[2020-08-08 09:20] LABS: Bedside Glucose 183 mg/dL (70-110)
--- NOTE | 2020-08-08 10:10 | CASEMGMT ---
Addendum entered by Celeste Walton 08/08/20 15:36: SW placed Green sheet, transport forms, COVID test, and COVID screening tool on pt's chart. Original Note: Social Work Note Pt is at surgery. SW left Bereavement/Grief resources in pt's room. SW placed a call to Britt at [facility] and left message that pt is having surgery today, could possibly discharge over the weekend if medically cleared. APRIL asked Liz to have their Psychiatrist/Psychologist follow up with pt when pt returns to facility due to pt's recent loss of /fiance. Plan: Return to [facility] when medically cleared Celeste Walton SIGN PAINTER APPRENTICE, ANATOMIC PATHOLOGIST
--- NOTE | 2020-08-08 10:47 | PCM.PN.HOSP ---
Patient Problems: Active and Suspected Problems (Last Reviewed 08/04/20 @ 21:07 by Zuleyka Donald, CHIEF PSYCHOLOGIST-C) Hypoxia (Acute) secondary to COPD with altered mental status Open left ankle fracture (Acute) Leukocytosis (Acute) Subjective: Patient examined. She had surgery with podiatry today. She has no complaints. Review of systems otherwise negative. Vitals/I&O's: Vital Signs Temp Pulse Resp BP Pulse Ox 98.2 F 81 18 129/52 H 95 08/08/20 07:57 08/08/20 07:57 08/08/20 07:57 08/08/20 07:57 08/08/20 07:57 Oxygen Flow Rate (L/min) 3 Oxygen Delivery Method Nasal Cannula Weight: 190 lb 11.198 oz Body Mass Index (BMI) 31.4 Finger Stick Blood Glucose 154 Intake and Output for Last 24 Hours 08/06/20 08/07/20 08/08/20 23:59 23:59 23:59 Intake Total 2255.25 / 2255.25 1581.75 / 1581.75 983.25 / 983.25 Output Total 550 / 550 400 / 400 300 / 300 Balance 1705.25 / 1705.25 1181.75 / 1181.75 683.25 / 683.25 General: Alert, Oriented x3, Cooperative, No apparent distress HEENT: Atraumatic, PERRLA, EOMI, Normocephalic Oral: Dry Mucosa Neck: Supple, No JVD, Negative Carotid Bruits Lungs: - - diminished breath sounds bibasally, no wheezes or crackles. on 2L of oxygen Cardiovascular: Regular rate, Regular Rhythm, Normal S1, Normal S2, No murmurs Abdomen: Bowel Sounds Present, Soft, Non Tender, Non-Distended, No Hepato-splenomegaly Extremities: No clubbing, No cyanosis, No edema, Capillary Refill Less than 3 Seconds Skin: - - LLE wrapped in jarett bandage, external fixator in place Musculoskeletal: No Tenderness to Palpation of Joints or Extremities Lymphatic: No Cervical, Supraclavicular, or Inguinal Adenopathy Neurological: Cranial nerves II-XII grossly intact, Neuro grossly intact, Motor Exam 5/5 strength throughout Psych/Mental Status: Normal Affect, Appropriate, Alert and oriented to time, place, person, mood and affect Microbiology Past 72 Hours 08/05/20 Unknown Wound Abcess - Aerobic & Anaerobic Swabs Gram Stain - Final 08/05/20 Unknown Wound Abcess - Aerobic & Anaerobic Swabs Wound Culture - Final No growth aerobically. 08/05/20 Unknown Wound Abcess - Aerobic & Anaerobic Swabs Anaerobic Culture - Final No anaerobic bacteria isolated. 08/05/20 Unknown Bone - Other Gram Stain - Final 08/05/20 Unknown Bone - Other Wound Culture - Final Staphylococcus epidermidis Corynebacterium striatum 08/05/20 Unknown Bone - Other Anaerobic Culture - Final No anaerobic bacteria isolated. 08/04/20 18:00 Wound - Left Foot Anaerobic Culture - Final No anaerobic bacteria isolated. 08/04/20 17:55 Blood Culture (Wb) - Anticubital Left Blood Culture - Preliminary No growth in 48 hours. 08/04/20 17:50 Blood Culture (Wb) - Anticubital Right Blood Culture - Preliminary No growth in 48 hours. Laboratory Results 08/07/20 11:18: POC Glucose 119 H 08/07/20 16:31: Blood Type A NEGATIVE, Antibody Screen NEGATIVE 08/07/20 17:09: POC Glucose 191 H 08/07/20 21:59: POC Glucose 160 H 08/08/20 05:58: WBC 14.2 H, RBC 3.41 L, Hgb 8.9 L, Hct 32.4 L, MCV 95.0, MCH 26.1 L, MCHC 27.5 L, RDW Std Deviation 55.8 H, RDW Coeff of Krista 16.0 H, Plt Count 445, MPV 11.3, Immature Gran % (Auto) 0.600, Neut % (Auto) 76.5 H, Lymph % (Auto) 9.4 L, [place] % (Auto) 7.7, Eos % (Auto) 5.4 H, Baso % (Auto) 0.4, Absolute Neuts (auto) 10.9 H, Absolute Lymphs (auto) 1.34, Nucleated RBC % 0 08/08/20 05:58: Sodium 141, Potassium 7.3 H*, Chloride 109 H, Carbon Dioxide 26.0, Anion Gap 6, BUN 26 H, Creatinine 1.68 H, Estim Creat Clear Calc 35.25, Est GFR (MDRD) Af Amer 41 L, Est GFR (MDRD) Non-Af 34 L, BUN/Creatinine Ratio 15.5, Glucose 113 H, Calcium 7.8 L 08/08/20 05:58: Random Vancomycin 23.6 H 08/08/20 06:31: POC Glucose 199 H 08/08/20 07:50: Potassium 5.1 08/08/20 09:16: POC Glucose 183 H Current Medications Acetaminophen (Acetaminophen 325 Mg Tablet) 650 mg PO Q6H PRN PRN PRN Reason: Pain Score 1-10/Temp > 100.7 F Last Admin: 08/07/20 18:57 Dose: 650 mg Documented by: Albuterol Sulfate (Albuterol 2.5 Mg/3 Ml Vial.Neb.) 2.5 mg INHALATION Q2H PRN PRN PRN Reason: Dyspnea, wheezing Albuterol/Ipratropium (Ipratropium/Albuterol Sulfate 3 Ml Ampul.Neb) 3 ml INHALATION Q6HWA.RT [facility] Last Admin: 08/08/20 07:22 Dose: 3 ml Documented by: Ascorbic Acid (Ascorbic Acid 500 Mg Tablet) 500 mg PO DAILY [facility] Last Admin: 08/07/20 08:24 Dose: 500 mg Documented by: Docusate Sodium (Docusate Sodium 100 Mg Capsule) 100 mg PO BID PRN PRN PRN Reason: Constipation Last Admin: 08/06/20 14:34 Dose: 100 mg Documented by: Doxazosin Mesylate (Doxazosin 1 Mg Tablet) 2 mg PO QHS [facility] Last Admin: 08/07/20 22:04 Dose: 2 mg Documented by: Duloxetine HCl (Duloxetine Hcl 30 Mg Capsule) 30 mg PO BID [facility] Last Admin: 08/07/20 22:04 Dose: 30 mg Documented by: Enoxaparin Sodium (Enoxaparin 40 Mg/0.4 Ml Syringe) 40 mg SC DAILY@0600 [facility] Last Admin: 08/07/20 06:06 Dose: 40 mg Documented by: Ergocalciferol (Ergocalciferol 50,000 Unit Capsule) 50,000 unit PO Fr@1000 [facility] Furosemide (Furosemide 40 Mg Tablet) 40 mg PO DAILY [facility] Last Admin: 08/07/20 08:23 Dose: 40 mg Documented by: Piperacillin Sod/Tazobactam (Sod 3.375 gm/ Sodium Chloride) 50 mls @ 12.5 mls/hr IV Q8 [facility] Last Infusion: 08/08/20 09:48 Dose: Infused Documented by: Vancomycin IV Pharmacy to Dose (1 each/ Sodium Chloride) 500 mls @ 250 mls/hr IV X1 PRN; Protocol PRN Reason: Rx to Dose Dextrose/Sodium Chloride (Dextrose 5%/0.9% Nacl) 1,000 mls @ 75 mls/hr IV .[id number] [facility] Last Admin: 08/08/20 05:49 Dose: 75 mls/hr Documented by: Sodium Chloride () 250 mls @ 15 mls/hr IV .[id number] PRN PRN Reason: Saline Flush Last Infusion: 08/08/20 06:47 Dose: 0 mls/hr Documented by: Insulin Glargine (Insulin Glargine 100 Units/Ml Pen) 22 units SC 1100,2200 [facility] Last Admin: 08/07/20 22:02 Dose: Not Given Documented by: Insulin Human Lispro (Insulin Lispro 100 Unit/Ml Insuln.Pen) 0 unit SC ACHS [facility]; Protocol Last Admin: 08/08/20 06:35 Dose: Not Given Documented by: Insulin Human Lispro (Insulin Lispro 100 Unit/Ml Insuln.Pen) 13 unit SC 0800,1200,1700 [facility] Last Admin: 08/08/20 07:55 Dose: Not Given Documented by: Levetiracetam (Levetiracetam 500 Mg Tablet) 500 mg PO BID [facility] Last Admin: 08/07/20 22:04 Dose: 500 mg Documented by: Morphine Sulfate (Morphine 2 Mg/Ml Syringe) 2 mg IV Q3H PRN PRN PRN Reason: Pain Score 6-10 Last Admin: 08/08/20 06:22 Dose: 2 mg Documented by: Ondansetron HCl (Ondansetron 4 Mg/2 Ml Vial) 4 mg IV Q8H PRN PRN PRN Reason: NAUSEA/VOMITING Last Admin: 08/08/20 01:44 Dose: 4 mg Documented by: Oxycodone HCl (Oxycodone 5 Mg Tablet) 5 mg PO Q4H PRN PRN PRN Reason: Pain Score 4-5 Last Admin: 08/07/20 18:57 Dose: 5 mg Documented by: Pregabalin (Pregabalin 50 Mg Capsule) 200 mg PO BID [facility] Risperidone (Risperidone 0.25 Mg Tablet) 0.25 mg PO BID [facility] Last Admin: 08/07/20 22:04 Dose: 0.25 mg Documented by: Sodium Chloride (0.9% Saline Lock 10 Ml Syringe) 10 - 40 ml IV UD PRN PRN Reason: SALINE FLUSH Last Admin: 08/08/20 06:22 Dose: 10 ml Documented by: Tolterodine Tartrate (Tolterodine Tartrate 2 Mg Cap.Sa) 2 mg PO DAILY [facility] Last Admin: 08/07/20 08:24 Dose: 2 mg Documented by: STROKE Vital Signs/Narrative: Vital Signs Temp Pulse Resp BP Pulse Ox 08/08/20 07:57 98.2 F 81 18 129/52 H 95 08/08/20 07:51 98.2 F 81 16 129/52 H 95 08/08/20 07:23 84 18 93 Medical Necessity - Tobacco Use Smoking Status: Current every day smoker Tobacco Use: Cigarettes Assessment/Plan All Active Problems (Last Reviewed 08/04/20 @ 21:07 by Zuleyka Donald, CHIEF PSYCHOLOGIST-C) Acute electrocardiogram changes (Acute) Hypoxia (Acute) Fracture tibia/fibula (Acute) Open left ankle fracture (Acute) Hyperglycemia (Acute) Dehydration (Acute) Leukocytosis (Acute) Altered level of consciousness (Acute) Hyperglycemia due to type 2 diabetes mellitus (Acute) Hypoxemia (Acute) MICHELE (acute kidney injury) (Acute) HHNC (hyperglycemic hyperosmolar nonketotic coma) (Acute) #Left ankle wound due to open left ankle fracture on IV vancomycin and zosyn wbc today is 14.[address] showed severely comminuted and displaced fractures of the medial and lateral malleoli with incomplete healing as well as tibiotalar dislocation today is POD 3 for debridement of left ankle open fracture and stabilization of fracture; she had application of external fixator to LLE today on tylenol, oxycodone and morphine for pain for application of external fixator by podiatry tomorrow #Chronic hypoxic respiratory failure due to COPD breathing Treatments of bronchodilators. Titrate oxygen to maintain saturation above 90%. incentive spirometry #Type 2 diabetes mellitus On Lantus twice daily. Insulin sliding scale. Checks AC at bedtime. #depression and anxiety: on risperdal, and cymbalta #History of seizure disorder: On Keppra DVT Prophylaxis: Lovenox Inpatient E&M: 11921 [facility] Hosp L2
[2020-08-08] MEDS: Calcium Chloride 1 GM/10 ML Syringe (10:49)
[2020-08-08] MEDS: Heparin 10,000 UNITS/10 ML Vial 10000 UNITS (10:50)
[2020-08-08] MEDS: Thrombin 5,000 IU Kit (PSA) 5,000 IU Vial 5000 IU TOPICAL (10:50)
[2020-08-08 13:00] LABS: Bedside Glucose 181 mg/dL (70-110)
[2020-08-08] MEDS: Bupivacaine Mpf 0.5% 30 ML VIAL (15:20)
--- NOTE | 2020-08-08 15:43 | OP.PCM_ITS ---
Problem List (1) Fracture tibia/fibula Status: Acute Qualifiers: Encounter type: subsequent encounter Fracture type: open Open fracture type: open type III Laterality: left Fracture healing: with nonunion Qualified Code(s): S82.202N - Unspecified fracture of shaft of left tibia, subsequent encounter for open fracture type IIIA, IIIB, or IIIC with nonunion; S82.402N - Unspecified fracture of shaft of left fibula, subsequent encounter for open fracture type IIIA, IIIB, or IIIC with nonunion Comment: left-recent (06/21/20) (2) Open wound of left lower extremity with complication Status: Chronic Qualifiers: Encounter type: initial encounter Qualified Code(s): S81.802A - Unspecified open wound, left lower leg, initial encounter (3) Polyneuropathy due to type 2 diabetes mellitus Status: Chronic (4) Osteomyelitis Status: Chronic (5) Dislocation of ankle, left, open Status: Chronic Qualifiers: Encounter type: subsequent encounter Qualified Code(s): S93.05XD - Dislocation of left ankle joint, subsequent encounter; S91.002D - Unspecified open wound, left ankle, subsequent encounter Report of Operation Date of Procedure: 08/08/20 Pre-Operative Diagnosis: Left open fibula and tibia fracture with nonunion, malreduction, and ankle dislocation (neglected). Open ulcer with exposed bone and osteomyelitis. gastrocnemius soleus equinus Post-Operative Diagnosis: Left open fibula and tibia fracture with nonunion, malreduction, and ankle dislocation (neglected). Open ulcer with exposed bone and osteomyelitis. gastrocnemius soleus equinus Surgery/Procedure Performed:: 1. Bone marrow aspirate harvest and application, left lower extremity. 2. Tenotomy achilles, left. 3. Left dislocated ankle fracture reduction with ankle arthrodesis and fixation with use of external fixation (circular ring, hybrid). 4. Application of advanced wound healing product (amnio fill) Description of Surgical Findings:: Hemostasis: Well-padded pneumatic left thigh tourniquet, 300 mmHg, 120 minutes Materials: -2-0 Vicryl, 2-0 nylon, 4-0 Vicryl, 4-0 nylon -amniofill (mimedx, 250 mg) -bone marrow aspirate concentrate, PPP, PRP -one Orthofix external fixation device with the following structure: two (160 cm) tibial ring block, one size 140 cm foot plate, one talar ring (half ring), two half pins (size 5), one calcaneus transpin (size 6), two half pains (size 4), six skinny wires, adjustable telescoping rods and standard rods Complications: None Specimens: None The patient tolerated the procedure and anesthesia well. She was transported to the PACU with vital signs stable and vascular status intact to the left lower extremity. Rectus ankle arthrodesis alignment was obtained with external fixation device in the desired position in a stable manner. All pins and wires are in the desired trajectory and position. Postoperative x-rays were obtained prior to leaving the operating room as noted. There was no evidence of deep tissue necrosis, devitalization, or purulence. She will be transferred back to medical surgical floor and will be followed closely while in house. Postoperative orders were entered electronically. official court reporter: yes - Surgeon: Vicki Allred DPM. faculty research assistant: Keena Doyle DPM. Second assistant laboratory director: Gisell Fuentes DPM PGY3 Type of Anesthesia:: General/Regional - Preoperative administered by anesthesia team, Local - Postoperative administered by podiatry team: 10 cc of 0.5% Marcaine plain administered to saphenous nerve block fashion of left lower extremity Specimen's removed: None Estimated Blood Loss (mL): <200 mL Description of Procedure: INDICATIONS: This is a 50-year-old female with significant past medical history of uncontrolled diabetes with peripheral neuropathy, COPD, schizophrenia, anxiety, depression had an unstable ankle fracture injury this past May which she was splinted and treated with conservative measures. She further had difficulty following up for unknown reason and there was subsequently dislocation of the distal tibia and an open fracture type manner with unknown duration suspected to be approximately 1 month ago. She presented to clinic earlier this week and was taking to the operating room with Dr. Doyle for irrigation, debridement and bone biopsy of the exposed tissue with preliminary reduction with wire fixation of the ankle which was completely dislocated. This may be secondary to a Charcot type event or just an unstable fracture pattern. Presurgical CT scan demonstrated complete dislocation of the tibiotalar joint with contracture of the tissues mainly in a lateral manner. The tibia was completely on the medial aspect of the talus and the talus was anteriorly translated as well. Preoperative x-rays are consistent with this as well. Improved ankle reduction was noted after recent surgery. Her preliminary bone biopsy results demonstrated bacterial growth on microbiology results. The pathology bone biopsy results are still pending. Infectious diseases is on consultation and she continues on vancomycin and Zosyn. She is being treated for osteomyelitis at this time. It is also noted she is a diabetic with recent improvement of A1C to 8%. She also has decreased vitamin D levels and is on supplementation to improve bone healing potential. Limb mechanics were assessed and compared to contralateral right side in a non weightbearing manner to aid in surgical positioning of the injured site. She does not appear to have genus recurvatum bilateral. Right lower extremity has a triplanar pes planus type structure with reducible hindfoot valgus, too many toe sign, and reduce medial longitudinal arch. She also has reduced ankle dorsiflexion with knee extended and flexed. The preoperative diagnosis, planned procedures, possible benefits, risks, complications, and anticipated healing time and management were discussed in detail with the patient. She understands risks and complications include but are not limited to the following: infection, swelling, scarring, pain, over or under correction, recurrence, need for further or staged surgeries, hardware failure, contracture of toes, delayed or nonhealing of the wound or bone, allergic reaction, blood clot, loss of limb, life, or function. She understands and elects to proceed with surgery at this time. I answered all of his questions to her satisfaction. She understands she is at risk for limb loss. She is very high risk for below-knee amputation due to her complicated injury pattern in addition to complicated medical history. She also has a strong smoking history however has recently practiced smoking cessation while [facility] this past month or longer. It is also noted she had prior significant noncompliance with maintaining a nonweightbearing status and this was addressed with her as well. She also is aware she is undergoing surgical intervention during Covid 19 and at this point the benefits outweigh the risk. All precautions are being taken to follow hospital protocols and prevent potential transmission. This is a limb salvage case and attempt to prevent below-knee amputation. I reviewed her pre operative diagnostic data and she was cleared to return to the operating room per the medical team. Preoperative optimization with hospitalist team is appreciated. The informed surgical consent and the surgical limb were signed. PROCEDURE IN DETAIL: The patient was transported to the operating room via cart and placed on the operating table in the supine position. Final verification of the patient, surgery, and limb designation was performed via the timeout procedure. She is already receiving IV antibiotics on the medical floor including vancomycin and Zosyn. General anesthesia was initiated by the anesthesia team. A preoperative left lower extremity regional block was performed by the anesthesia team as well. The left lower extremity was prepped and draped in the usual aseptic m tiffany. She was carefully bumped to allow good exposure. Surgery began in the following manner: A well-padded pneumatic left thigh tourniquet was placed while in the sterile field. Attention was first directed to the tibial tuberosity of the left lower extremity. A 1 cm linear incision was made to the medial aspect of the tibial tuberosity site and blunt dissection was performed down directly to the bone with a hemostat. Care was taken to identify, protect, and retract all neurovascular structures at this point and throughout all parts of this surgical case. A bone marrow aspirate kit trocar was gently tapped into the medullary canal and 45 cc of bone marrow aspirate was obtained. This was processed with the [employer] and set aside for later combination with the bone graft as bone marrow aspirate concentrate to optimize arthrodesis potential. The site was gently irrigated with saline and the skin was reapproximated with nylon suture with horizontal mattress technique. Additional venous blood was drawn by OR staff for further use of the derive platelet rich plasma and platelet poor plasma to wound sites to optimize healing. An Esmarch bandage was used to exsanguinate the limb and the tourniquet was inflated at this time. This was inflated to 300 mmHg. The adjacent soft tissue that was contracted and preventing reduction of the hindfoot onto the leg was addressed at this time. There was invaginated deltoid ligament medially and this was removed with tenotomy. The remainder of the distal fibula was also cautiously removed at this time and was freed from all soft tissue in preparation for application in the arthrodesis site. This reduced some of the lateral contracture. This was freed from soft tissue and cancellous bone was morselized for later autograft use in the arthrodesis site. A sagittal saw was used to resect additional part of the fibula in [facility] this portion was set aside for future strut use in the arthrodesis to aid in rigid alignment and fixation. Soft tissue and part of the cortical aspects were removed to allow later osseous incorporation. Plantarflexion contracture with knee flexed and extended with the inability to obtain appropriate foot dorsiflexion was noted at this time consistent with gastrocnemius soleus equinus. A one and a half centimeter linear incision was made just lateral to the Achilles tendon carefully through the skin. Blunt dissection was performed down to the Achilles tendon and this was released via a 15 blade. Immediate improvement was noted allowing appropriate sagittal plane correction and prevention of anterior translation of the talus. Next, the external fixation device was applied in an initial manner. This was pre-built and lined up according to the premarked anatomic structures in a rectus position. The transcalcaneal pin was applied first and the frame footplate was secured according to this position. Next, the talus wires were applied to the the talus body to avoid neurovascular structures and open wound site with infection concern. An additional talar half ring was connected to the previously applied foot plate and secured. The arthrodesis surfaces were prepared with subchondral drilling and fish scaling was completed. Healthy bleeding was noted to all surfaces. Care was taken to achieve the proper alignment including rectus sagittal plane, slight hindfoot valgus and external rotation of approximately 5 degrees. This positioning was confirmed radiographically and also clinically prior to external fixation application. The previously harvested bone marrow aspirate, morselized cancellous autograft, and fibular autograft in strut format was applied to optimize healing and maintain improved positioning. A Steinmann pin was applied to maintain this position in a temporary manner. Next, the tibial block was connected to the talar components and foot plate with adjustable telescoping nilda struts. The tibial block proximal ring was next fixated and secured to the tibia with standard external fixation technique with one skinny wire utilizing proper safe zone technique. This was tensioned to 90 due to diabetic and compromised bone status. Next, the midfoot was secured to the footplate with additional size 4 half pins applied to the medial and lateral columns. The tourniquet was deflated at this time and brisk capillary refill time was noted to all digits. There was no pulsatile bleeding noted and capillary fill time remains brisk to all digits. Attention was next directed back to the proximal tibial ring in which additional skinny wire were applied and tensioned. An additional size 5 half pin was also applied utilizing proper safe zone technique. The distal ring of the tibial ring block was next secured in place with one size five half pin and one skinny wire. This was also tensioned according standard protocol at 90. Next, the previously applied talar skinny wires were tensioned to 50. Temporary fixation was removed. Compression was additionally applied between the talar ring and distal ring of the tibial block via telescoping rods. Proper alignment in all 3 planes of the ankle were confirmed with multiple intraoperative radiographs and this was successfully achieved. At this time additional steps were taken to secure the foot component to the tibial component with an adjustable strut connecting the foot arch to the distal ring of the tibial block. An additional trans-metatarsal skinny wire was also applied and tensioned to less than 50. Intraoperative fluoroscopy was utilized to ensure proper placement of all wires and pins. Deformity and injury correction was also confirmed. No acute injuries were noted. Lastly, all nuts and bolts were tightened to insure a stable and secure fit. Deep closure with Vicryl was performed to the lateral aspect. Additional PPP and PRP was applied to this site to optimize healing. Skin closure was additionally performed utilizing nylon with retention and horizontal mattress technique. Additional nhung were also used for the remainder of the closure laterally and posterior lateral. The medial wound from the open fracture dislocation site was gently mechanically debrided and appears clean without purulence, necrosis, or exposed unstable bone. Amnio fill advanced wound healing product derived from placental and umbilical cord tissue was next approximated over the wound that measured approximately 3.8 x 4.3 x 1.0 cm. It is noted there is far less tension on this wound compared to earlier this week now that the underlying osseous deformity h as been corrected. This was secured in place with [employer] and nylon suture. Additional PPP was applied to this site and was covered with a gauze. Capillary refill time remained brisk to all digits of the left foot during and after the procedure. Her foot and ankle remain in a rectus position with solid stable external fixation. Pins and wires were cut and capped. A dressing consisting of betadine soaked gauze, akil, abdominal pads, Kerlix, and multiple Luis wraps were applied to the limb over the surgical wounds for protection and edema management. Outer luis wraps were also applied as well to cover the external fixation device. AFTER PROCEDURE: The patient tolerated the procedure and anesthesia well and was transported to the PACU with vital signs stable and vascular status intact to the left lower extremity. She will be transferred back to the medical surgical floor upon continued stability. She will be monitored for continued stability prior to being [facility] the [facility]. Strict nonweightbearing was recommended and all post operative orders were placed electronically. She was advised to keep her dressing clean, dry, and intact. To ice and elevate for pain and inflammation management. Pain medications were ordered electronically. She plans to reside at [facility] during the recovery timeframe. It is noted that she does have a low vitamin D level and she was started on vitamin D supplementation. She was also started on Valentin nutritional supplementation to further optimize healing. This injury may be a result of a neglected unstable injury versus Charcot event. To continue with proper glycemic control to optimize healing. Medical management and DVT prophylaxis will be continued with the guidance of the hospitalist team. To continue tobacco cessation. Anticoagulation medication will be restarted tomorrow after updated H and H is checked. I will continue to follow her closely while in house. Vicki Allred, DPM, F[facility] Grafts/Implants Used: Amnio fill (250 mg), Orthofix external fixation, BMA?PRP?PPP - Complications none - Admit VTE Documentation VTE Present on Admission: No VTE Mechan Device Prophylaxis: SCD's VTE Pharm Prophylaxis ordered?: Yes
[2020-08-08 16:21] LABS: Bedside Glucose 209 mg/dL (70-110)
--- NOTE | 2020-08-08 16:26 | PCM.PROGNOTE ---
<Lashaun Xiong SUPERVISOR CEREAL - Last Filed: 08/08/20 16:37> Patient Problems: Active and Suspected Problems (Last Reviewed 08/04/20 @ 21:07 by Zuleyka Donald NP-C) Hypoxia (Acute) secondary to COPD with altered mental status Fracture tibia/fibula (Acute) left-recent (06/21/20) Open left ankle fracture (Acute) Leukocytosis (Acute) Subjective: Patient seen and examined in PACU following left ankle surgery. She is resting comfortably. Currently on 4L NC. No noted respiratory distress. - Physical Exam Vitals/I&O's: Vital Signs Temp Pulse Resp BP Pulse Ox 97.9 F 93 16 101/48 L 93 08/08/20 15:54 08/08/20 16:00 08/08/20 16:00 08/08/20 16:00 08/08/20 16:00 Oxygen Flow Rate (L/min) 4 Oxygen Delivery Method Simple Mask Weight: 190 lb 11.198 oz Body Mass Index (BMI) 31.4 Finger Stick Blood Glucose 154 Intake and Output for Last 24 Hours 08/06/20 08/07/20 08/08/20 23:59 23:59 23:59 Intake Total 2255.25 / 2255.25 1581.75 / 1581.75 1033.25 / 1033.25 Output Total 550 / 550 400 / 400 300 / 300 Balance 1705.25 / 1705.25 1181.75 / 1181.75 733.25 / 733.25 General: Oriented x3, Cooperative, - - Drowsy HEENT: Atraumatic, PERRLA, EOMI, Normocephalic Neck: Supple, No JVD, Negative Carotid Bruits Lungs: Clear to auscultation, Diminished Cardiovascular: Regular rate, No murmurs Abdomen: Bowel Sounds Present, Soft, Non Tender, Non-Distended, Obese Extremities: No clubbing, No cyanosis, No edema Skin: No rashes, No breakdown, - - Left foot postop dressing intact Musculoskeletal: No Tenderness to Palpation of Joints or Extremities Neurological: Cranial nerves II-XII grossly intact, Neuro grossly intact Psych/Mental Status: Normal Affect, Appropriate Microbiology Past 72 Hours 08/05/20 Unknown Wound Abcess - Aerobic & Anaerobic Swabs Gram Stain - Final 08/05/20 Unknown Wound Abcess - Aerobic & Anaerobic Swabs Wound Culture - Final No growth aerobically. 08/05/20 Unknown Wound Abcess - Aerobic & Anaerobic Swabs Anaerobic Culture - Final No anaerobic bacteria isolated. 08/05/20 Unknown Bone - Other Gram Stain - Final 08/05/20 Unknown Bone - Other Wound Culture - Final Staphylococcus epidermidis Corynebacterium striatum 08/05/20 Unknown Bone - Other Anaerobic Culture - Final No anaerobic bacteria isolated. 08/04/20 18:00 Wound - Left Foot Anaerobic Culture - Final No anaerobic bacteria isolated. 08/04/20 17:55 Blood Culture (Wb) - Anticubital Left Blood Culture - Preliminary No growth in 48 hours. 08/04/20 17:50 Blood Culture (Wb) - Anticubital Right Blood Culture - Preliminary No growth in 48 hours. Laboratory Results 08/07/20 16:31: Blood Type A NEGATIVE, Antibody Screen NEGATIVE 08/07/20 17:09: POC Glucose 191 H 08/07/20 21:59: POC Glucose 160 H 08/08/20 05:58: WBC 14.2 H, RBC 3.41 L, Hgb 8.9 L, Hct 32.4 L, MCV 95.0, MCH 26.1 L, MCHC 27.5 L, RDW Std Deviation 55.8 H, RDW Coeff of Krista 16.0 H, Plt Count 445, MPV 11.3, Immature Gran % (Auto) 0.600, Neut % (Auto) 76.5 H, Lymph % (Auto) 9.4 L, Caroline % (Auto) 7.7, Eos % (Auto) 5.4 H, Baso % (Auto) 0.4, Absolute Neuts (auto) 10.9 H, Absolute Lymphs (auto) 1.34, Nucleated RBC % 0 08/08/20 05:58: Sodium 141, Potassium 7.3 H*, Chloride 109 H, Carbon Dioxide 26.0, Anion Gap 6, BUN 26 H, Creatinine 1.68 H, Estim Creat Clear Calc 35.25, Est GFR (MDRD) Af Amer 41 L, Est GFR (MDRD) Non-Af 34 L, BUN/Creatinine Ratio 15.5, Glucose 113 H, Calcium 7.8 L 08/08/20 05:58: Random Vancomycin 23.6 H 08/08/20 06:31: POC Glucose 199 H 08/08/20 07:50: Potassium 5.1 08/08/20 09:16: POC Glucose 183 H 08/08/20 12:56: POC Glucose 181 H 08/08/20 16:08: POC Glucose 209 H Current Medications Acetaminophen (Acetaminophen 325 Mg Tablet) 650 mg PO Q6H PRN PRN PRN Reason: Pain Score 1-10/Temp > 100.7 F Last Admin: 08/07/20 18:57 Dose: 650 mg Documented by: Albuterol Sulfate (Albuterol 2.5 Mg/3 Ml Vial.Neb.) 2.5 mg INHALATION Q2H PRN PRN PRN Reason: Dyspnea, wheezing Albuterol/Ipratropium (Ipratropium/Albuterol Sulfate 3 Ml Ampul.Neb) 3 ml INHALATION Q6HWA.RT [facility] Last Admin: 08/08/20 07:22 Dose: 3 ml Documented by: Ascorbic Acid (Ascorbic Acid 500 Mg Tablet) 500 mg PO DAILY [facility] Last Admin: 08/08/20 12:33 Dose: Not Given Documented by: Docusate Sodium (Docusate Sodium 100 Mg Capsule) 100 mg PO BID PRN PRN PRN Reason: Constipation Last Admin: 08/06/20 14:34 Dose: 100 mg Documented by: Doxazosin Mesylate (Doxazosin 1 Mg Tablet) 2 mg PO QHS [facility] Last Admin: 08/07/20 22:04 Dose: 2 mg Documented by: Duloxetine HCl (Duloxetine Hcl 30 Mg Capsule) 30 mg PO BID [facility] Last Admin: 08/08/20 12:32 Dose: Not Given Documented by: Enoxaparin Sodium (Enoxaparin 40 Mg/0.4 Ml Syringe) 40 mg SC DAILY@0600 [facility] Last Admin: 08/07/20 06:06 Dose: 40 mg Documented by: Ergocalciferol (Ergocalciferol 50,000 Unit Capsule) 50,000 unit PO Fr@1000 [facility] Last Admin: 08/08/20 14:00 Dose: Not Given Documented by: Furosemide (Furosemide 40 Mg Tablet) 40 mg PO DAILY [facility] Last Admin: 08/08/20 13:59 Dose: Not Given Documented by: Piperacillin Sod/Tazobactam (Sod 3.375 gm/ Sodium Chloride) 50 mls @ 12.5 mls/hr IV Q8 [facility] Last Infusion: 08/08/20 14:30 Dose: Infused Documented by: Vancomycin IV Pharmacy to Dose (1 each/ Sodium Chloride) 500 mls @ 250 mls/hr IV X1 PRN; Protocol PRN Reason: Rx to Dose Dextrose/Sodium Chloride (Dextrose 5%/0.9% Nacl) 1,000 mls @ 75 mls/hr IV .[id number] [facility] Last Admin: 08/08/20 05:49 Dose: 75 mls/hr Documented by: Sodium Chloride () 250 mls @ 15 mls/hr IV .[id number] PRN PRN Reason: Saline Flush Last Infusion: 08/08/20 06:47 Dose: 0 mls/hr Documented by: Insulin Glargine (Insulin Glargine 100 Units/Ml Pen) 22 units SC 1100,2200 [facility] Last Admin: 08/08/20 12:33 Dose: Not Given Documented by: Insulin Human Lispro (Insulin Lispro 100 Unit/Ml Insuln.Pen) 0 unit SC ACHS [facility]; Protocol Last Admin: 08/08/20 12:33 Dose: Not Given Documented by: Insulin Human Lispro (Insulin Lispro 100 Unit/Ml Insuln.Pen) 13 unit SC 0800,1200,1700 [facility] Last Admin: 08/08/20 12:34 Dose: Not Given Documented by: Levetiracetam (Levetiracetam 500 Mg Tablet) 500 mg PO BID [facility] Last Admin: 08/08/20 13:59 Dose: Not Given Documented by: Morphine Sulfate (Morphine 2 Mg/Ml Syringe) 2 mg IV Q3H PRN PRN PRN Reason: Pain Score 6-10 Last Admin: 08/08/20 06:22 Dose: 2 mg Documented by: Ondansetron HCl (Ondansetron 4 Mg/2 Ml Vial) 4 mg IV Q8H PRN PRN PRN Reason: NAUSEA/VOMITING Last Admin: 08/08/20 01:44 Dose: 4 mg Documented by: Oxycodone HCl (Oxycodone 5 Mg Tablet) 5 mg PO Q4H PRN PRN PRN Reason: Pain Score 4-5 Last Admin: 08/07/20 18:57 Dose: 5 mg Documented by: Pregabalin (Pregabalin 50 Mg Capsule) 200 mg PO BID [facility] Last Admin: 08/08/20 14:00 Dose: Not Given Documented by: Risperidone (Risperidone 0.25 Mg Tablet) 0.25 mg PO BID [facility] Last Admin: 08/08/20 14:00 Dose: Not Given Documented by: Sodium Chloride (0.9% Saline Lock 10 Ml Syringe) 10 - 40 ml IV UD PRN PRN Reason: SALINE FLUSH Last Admin: 08/08/20 06:22 Dose: 10 ml Documented by: Tolterodine Tartrate (Tolterodine Tartrate 2 Mg Cap.Sa) 2 mg PO DAILY [facility] Last Admin: 08/08/20 13:59 Dose: Not Given Documented by: Medical Necessity - Tobacco Use Smoking Status: Current every day smoker Tobacco Use: Cigarettes Assessment/Plan All Active Problems (Last Reviewed 08/04/20 @ 21:07 by Zuleyka Donald NP-C) Acute electrocardiogram changes (Acute) Hypoxia (Acute) Fracture tibia/fibula (Acute) Open left ankle fracture (Acute) Displaced bimalleolar fracture of left lower leg, subsequent encounter for closed fracture with delayed healing (Acute) Hyperglycemia (Acute) Dehydration (Acute) Leukocytosis (Acute) Altered level of consciousness (Acute) Hyperglycemia due to type 2 diabetes mellitus (Acute) Hypoxemia (Acute) MICHELE (acute kidney injury) (Acute) HHNC (hyperglycemic hyperosmolar nonketotic coma) (Acute) 1. Left ankle wound due to open left ankle fracture-status post wound debridement, bone biopsy and temporary reduction. OR 08/08/2020 for placement of external fixation, staged stability. Management per podiatry. ID following. Continue Zosyn and vancomycin. Follow cultures. As needed pain regimen. PT/OT. 2. Type 2 diabetes nzokxfje-Ooul-Wciye with sliding scale insulin. Continue home Lantus regimen. 3. Chronic hypoxia secondary to chronic COPD, suspect underlying NORRIS as well-continue supplement oxygen to maintain O2 at or above 90%. IS. Albuterol DuoNeb aerosols. 4. History of grand mal seizures-on Keppra. 5. Schizophrenia/anxiety/depression-on Cymbalta, risperidone. 6. Vitamin D deficiency-continue replacement. DVT prophylaxis- Lovenox sc This patient was seen by CHARLY Montalvo under the supervision of Dr. Desir. <Kelly Desir - Last Filed: 08/08/20 21:01> - Physical Exam Vitals/I&O's: Vital Signs Temp Pulse Resp BP Pulse Ox 98.5 F 101 H 18 125/61 H 96 08/08/20 19:48 08/08/20 19:48 08/08/20 19:48 08/08/20 19:48 08/08/20 19:48 Oxygen Flow Rate (L/min) 4 Oxygen Delivery Method Nasal Cannula Weight: 190 lb 11.198 oz Body Mass Index (BMI) 31.4 Finger Stick Blood Glucose 209 Intake and Output for Last 24 Hours 08/06/20 08/07/20 08/08/20 23:59 23:59 23:59 Intake Total 2255.25 / 2255.25 1581.75 / 1581.75 2033.25 / 2033.25 Output Total 550 / 550 400 / 400 300 / 300 Balance 1705.25 / 1705.25 1181.75 / 1181.75 1733.25 / 1733.25 Microbiology Past 72 Hours 08/05/20 Unknown Wound Abcess - Aerobic & Anaerobic Swabs Gram Stain - Final 08/05/20 Unknown Wound Abcess - Aerobic & Anaerobic Swabs Wound Culture - Final No growth aerobically. 08/05/20 Unknown Wound Abcess - Aerobic & Anaerobic Swabs Anaerobic Culture - Final No anaerobic bacteria isolated. 08/05/20 Unknown Bone - Other Gram Stain - Final 08/05/20 Unknown Bone - Other Wound Culture - Final Staphylococcus epidermidis Corynebacterium striatum 08/05/20 Unknown Bone - Other Anaerobic Culture - Final No anaerobic bacteria isolated. 08/04/20 18:00 Wound - Left Foot Anaerobic Culture - Final No anaerobic bacteria isolated. 08/04/20 17:55 Blood Culture (Wb) - Anticubital Left Blood Culture - Preliminary No growth in 48 hours. 08/04/20 17:50 Blood Culture (Wb) - Anticubital Right Blood Culture - Preliminary No growth in 48 hours. Laboratory Results 08/07/20 21:59: POC Glucose 160 H 08/08/20 05:58: WBC 14.2 H, RBC 3.41 L, Hgb 8.9 L, Hct 32.4 L, MCV 95.0, MCH 26.1 L, MCHC 27.5 L, RDW Std Deviation 55.8 H, RDW Coeff of Krista 16.0 H, Plt Count 445, MPV 11.3, Immature Gran % (Auto) 0.600, Neut % (Auto) 76.5 H, Lymph % (Auto) 9.4 L, Caroline % (Auto) 7.7, Eos % (Auto) 5.4 H, Baso % (Auto) 0.4, Absolute Neuts (auto) 10.9 H, Absolute Lymphs (auto) 1.34, Nucleated RBC % 0 08/08/20 05:58: Sodium 141, Potassium 7.3 H*, Chloride 109 H, Carbon Dioxide 26.0, Anion Gap 6, BUN 26 H, Creatinine 1.68 H, Estim Creat Clear Calc 35.25, Est GFR (MDRD) Af Amer 41 L, Est GFR (MDRD) Non-Af 34 L, BUN/Creatinine Ratio 15.5, Glucose 113 H, Calcium 7.8 L 08/08/20 05:58: Random Vancomycin 23.6 H 08/08/20 06:31: POC Glucose 199 H 08/08/20 07:50: Potassium 5.1 08/08/20 09:16: POC Glucose 183 H 08/08/20 12:56: POC Glucose 181 H 08/08/20 16:08: POC Glucose 209 H 08/08/20 17:58: POC Glucose 245 H Current Medications Acetaminophen (Acetaminophen 325 Mg Tablet) 650 mg PO Q6H PRN PRN PRN Reason: Pain Score 1-10/Temp > 100.7 F Last Admin: 08/07/20 18:57 Dose: 650 mg Documented by: Albuterol Sulfate (Albuterol 2.5 Mg/3 Ml Vial.Neb.) 2.5 mg INHALATION Q2H PRN PRN PRN Reason: Dyspnea, wheezing Albuterol/Ipratropium (Ipratropium/Albuterol Sulfate 3 Ml Ampul.Neb) 3 ml INHALATION Q6HWA.RT [facility] Last Admin: 08/08/20 19:17 Dose: 3 ml Documented by: Ascorbic Acid (Ascorbic Acid 500 Mg Tablet) 500 mg PO DAILY [facility] Last Admin: 08/08/20 12:33 Dose: Not Given Documented by: Docusate Sodium (Docusate Sodium 100 Mg Capsule) 100 mg PO BID PRN PRN PRN Reason: Constipation Last Admin: 08/06/20 14:34 Dose: 100 mg Documented by: Doxazosin Mesylate (Doxazosin 1 Mg Tablet) 2 mg PO QHS [facility] Last Admin: 08/07/20 22:04 Dose: 2 mg Documented by: Duloxetine HCl (Duloxetine Hcl 30 Mg Capsule) 30 mg PO BID [facility] Last Admin: 08/08/20 12:32 Dose: Not Given Documented by: Enoxaparin Sodium (Enoxaparin 40 Mg/0.4 Ml Syringe) 40 mg SC DAILY@0600 [facility] Last Admin: 08/07/20 06:06 Dose: 40 mg Documented by: Ergocalciferol (Ergocalciferol 50,000 Unit Capsule) 50,000 unit PO Fr@1000 [facility] Last Admin: 08/08/20 14:00 Dose: Not Given Documented by: Furosemide (Furosemide 40 Mg Tablet) 40 mg PO DAILY [facility] Last Admin: 08/08/20 13:59 Dose: Not Given Documented by: Piperacillin Sod/Tazobactam (Sod 3.375 gm/ Sodium Chloride) 50 mls @ 12.5 mls/hr IV Q8 [facility] Last Infusion: 08/08/20 14:30 Dose: Infused Documented by: Vancomycin IV Pharmacy to Dose (1 each/ Sodium Chloride) 500 mls @ 250 mls/hr IV X1 PRN; Protocol PRN Reason: Rx to Dose Dextrose/Sodium Chloride (Dextrose 5%/0.9% Nacl) 1,000 mls @ 75 mls/hr IV .[id number] [facility] Last Admin: 08/08/20 16:27 Dose: 75 mls/hr Documented by: Sodium Chloride () 250 mls @ 15 mls/hr IV .[id number] PRN PRN Reason: Saline Flush Last Infusion: 08/08/20 06:47 Dose: 0 mls/hr Documented by: Insulin Glargine (Insulin Glargine 100 Units/Ml Pen) 22 units SC 1100,2200 [facility] Last Admin: 08/08/20 12:33 Dose: Not Given Documented by: Insulin Human Lispro (Insulin Lispro 100 Unit/Ml Insuln.Pen) 0 unit SC ACHS [facility]; Protocol Last Admin: 08/08/20 17:59 Dose: 3 units Documented by: Insulin Human Lispro (Insulin Lispro 100 Unit/Ml Insuln.Pen) 13 unit SC 0800,1200,1700 [facility] Last Admin: 08/08/20 18:01 Dose: Not Given Documented by: L-Arginine/L-Glutamine/Calcium [facility] ([facility] ([facility]flav[facility]) [facility] Levetiracetam (Levetiracetam 500 Mg Tablet) 500 mg PO BID [facility] Last Admin: 08/08/20 13:59 Dose: Not Given Documented by: Morphine Sulfate (Morphine 2 Mg/Ml Syringe) 2 mg IV Q3H PRN PRN PRN Reason: Pain Score 6-10 Last Admin: 08/08/20 06:22 Dose: 2 mg Documented by: Ondansetron HCl (Ondansetron 4 Mg/2 Ml Vial) 4 mg IV Q8H PRN PRN PRN Reason: NAUSEA/VOMITING Last Admin: 08/08/20 01:44 Dose: 4 mg Documented by: Oxycodone HCl (Oxycodone 5 Mg Tablet) 5 mg PO Q4H PRN PRN PRN Reason: Pain Score 4-5 Last Admin: 08/07/20 18:57 Dose: 5 mg Documented by: Pregabalin (Pregabalin 50 Mg Capsule) 200 mg PO BID [facility] Last Admin: 08/08/20 14:00 Dose: Not Given Documented by: Risperidone (Risperidone 0.25 Mg Tablet) 0.25 mg PO BID [facility] Last Admin: 08/08/20 14:00 Dose: Not Given Documented by: Sodium Chloride (0.9% Saline Lock 10 Ml Syringe) 10 - 40 ml IV UD PRN PRN Reason: SALINE FLUSH Last Admin: 08/08/20 06:22 Dose: 10 ml Documented by: Tolterodine Tartrate (Tolterodine Tartrate 2 Mg Cap.Sa) 2 mg PO DAILY [facility] Last Admin: 08/08/20 13:59 Dose: Not Given Documented by: Assessment/Plan Patient seen by Lashaun PARKS under my supervision Patient had surgery today, with placement of external fixator by podiatry. SHe remains on IV vancomycin and zosyn. ID on board. Continue pain regimen for pain control. Await cultures. PT/OT on board. Fall precautions. To titrate oxygen to maintain sats >90%. Continue breathing treatments prn with bronchodilators. Continue lovenox for DVT prophylaxis. Rest of management as per Lashaun STEWARDC's note, which I have reviewed and endorsed. Inpatient E&M: [id number] [facility] L2
[2020-08-08] MEDS: Insulin Lispro 100 UNIT/ML INSULN.PEN SC ×2 (17:59→21:40)
--- NOTE | 2020-08-08 18:04 | NURSING ---
Shivering, warm blanket given to upper body, states that is good.
[2020-08-08 18:06] LABS: Bedside Glucose 245 mg/dL (70-110)
[2020-08-08] MEDS: levETIRAcetam 500 MG Tablet PO (21:35)
[2020-08-08] MEDS: RisperiDONE 0.25 MG Tablet PO (21:39)
[2020-08-08] MEDS: DULoxetine Hcl 30 MG Capsule PO (21:39)
[2020-08-08] MEDS: Pregabalin 50 MG Capsule 200 MG PO (21:39)
[2020-08-08] MEDS: Doxazosin 1 MG Tablet 2 MG PO (21:45)
[2020-08-08 23:11] LABS: Bedside Glucose 272 mg/dL (70-110)
[2020-08-09] VITALS (16 sets, daily range): BP systolic 117–158; BP diastolic 56–77; PULSE 86–98; RESP 16–18; TEMP 36.5–37.2; O2SAT 93–98
--- NOTE | 2020-08-09 01:06 | NURSING ---
inserted ortiz under sterile field per order d/t pt retaining urine. pt tolerated well. ortiz patent and draining.
[2020-08-09] MEDS: Dextrose 5%/0.9% NaCl 1,000 ML 75 ML IV (05:05)
[2020-08-09 06:17] LABS: Absolute Lymphocyte Count 0.84 X10^3/uL (0.83-4.51); Absolute Neutrophil Count 10.2 X10^3/uL (2.0-7.7); Basophil# 0.06 X10^3/uL; Basophil% 0.5 % (0-1); Eosinophil# 0.14 X10^3/uL; Eosinophils% 1.1 % (0-5); Hematocrit 24.7 % (37-47); Hemoglobin 7.1 g/dL (12.0-15.0); Lymphocyte # 0.84 X10^3/ul (4.0); Lymphocyte % 6.8 % (19-41); Mean Corp Hgb Conc 28.7 g/dL (32-36); Mean Corpuscular Hgb 26.4 pg (27.0-32.0); Mean Corpuscular Volume 91.8 fL (81-99); Monocyte# 1.07 X10^3/uL; Monocyte% 8.6 % (0-10); NRBC Flagged by Analyzer 0 % (0-5); Neutrophil # 10.22 X10^3/uL (2.7-7.7); Neutrophil % 82.6 % (47-70); Platelet Count 349 K/mm3 (150-450); RBC Distribution Width CV 16.2 % (11.6-14.6); RBC Distribution Width SD 54.9 fl (35.1-43.9); Red Blood Count 2.69 M/mm3 (4.2-5.4); White Blood Count 12.4 K/mm3 (4.4-11.0)
[2020-08-09 06:43] LABS: ALB/GLOB Ratio 0.3 RATIO (0.9-2.4); AST(SGOT) 8 U/L (15-37); Alanine Aminotransfer ALT/SGPT 13 U/L (13-56); Albumin, Serum 1.5 g/dL (3.2-5.0); Alkaline Phosphatase 242 U/L (45-117); Anion Gap 3 (5-15); BUN 28 mg/dL (7-18); BUN/Creat Ratio 15.7 RATIO (10-20); Calcium,Total 8.4 mg/dL (8.5-10.1); Chloride 112 mmol/L (98-107); Creatinine, Serum 1.78 mg/dL (0.55-1.02); EST Glomerular Filtration Rate 32 mL/min (>60); Est Glom Filt Rate - Afr Amer 39 mL/min (>60); Estimated Creatinine Clearance 33.27 ml/min; Globulin 4.5 g/dL (2.2-4.2); Glucose 198 mg/dL (74-106); Potassium 5.6 mmol/L (3.5-5.1); Sodium Level 141 mmol/L (136-145)
--- NOTE | 2020-08-09 07:30 | RAD_ITS ---
STUDY: X-RAY - LEFT TIBIA AND FIBULA REASON FOR EXAM: Female, 50 years old. Post operative -- external fixation placement TECHNIQUE: 3 view(s) of the tibia and fibula were obtained. COMPARISON: 08/05/2020. FINDINGS: The left lower leg is in traction obscuring the soft tissues and bony details. RAD/Tibia & Fibula 2 Views IMPRESSION: Left lower leg in traction as described above. Electronically Signed: Tj Trevino MD at 10:51 EDT Tel , Service support ,
--- NOTE | 2020-08-09 07:30 | RAD_ITS ---
STUDY: X-RAY - LEFT FOOT CLINICAL: Female, 50 years old. Post operative -- external fixation placement TECHNIQUE: 3 view(s) of the foot. COMPARISON: None. FINDINGS: Traction device is seen overlying the ankle and foot region obscuring the soft tissues and bony details. The examination was not performed for diagnostic purposes. RAD/Foot min 3 Views IMPRESSION: Postoperative exam as described above. Electronically Signed: Tj Trevino MD at 10:51 EDT Tel , Service support ,
--- NOTE | 2020-08-09 07:34 | RAD_ITS ---
STUDY: X-RAY - LEFT ANKLE REASON FOR EXAM: Female, 50 years old. Post operative -- ankle arthrodesis with external fixation placement TECHNIQUE: 3 view(s) of the ankle. COMPARISON: None. FINDINGS: Left ankle is in traction device obscuring the soft tissues and bony details. Examination otherwise is nondiagnostic. RAD/Ankle min 3 Views IMPRESSION: Postoperative exam as described above. Electronically Signed: Tj Trevino MD at 10:53 EDT Tel , Service support ,
[2020-08-09] MEDS: Insulin Lispro 100 UNIT/ML INSULN.PEN SC (08:10)
[2020-08-09] MEDS: Insulin Lispro 100 UNIT/ML INSULN.PEN 13 UNIT SC (08:12)
[2020-08-09] MEDS: Tolterodine Tartrate 2 MG CAP.SA PO (08:19)
[2020-08-09] MEDS: DULoxetine Hcl 30 MG Capsule PO ×2 (08:19→22:56)
[2020-08-09] MEDS: levETIRAcetam 500 MG Tablet PO ×2 (08:19→22:57)
[2020-08-09] MEDS: Juven (unflavored) Packet 1 PACKET PO ×2 (08:19→17:06)
[2020-08-09] MEDS: Furosemide 40 MG Tablet PO (08:19)
[2020-08-09] MEDS: Ascorbic Acid 500 MG Tablet PO (08:19)
[2020-08-09] MEDS: RisperiDONE 0.25 MG Tablet PO ×2 (08:20→22:55)
--- NOTE | 2020-08-09 08:24 | PN_ITS ---
Patient Problems: Active and Suspected Problems (Last Reviewed 08/04/20 @ 21:07 by Zuleyka Donald, [employer] RE[employer]ER-C) Hypoxia (Acute) secondary to COPD with altered mental status Fracture tibia/fibula (Acute) left-recent (06/21/20) Open left ankle fracture (Acute) Leukocytosis (Acute) Subjective: Patient seen bedside POD #1 left ankle arthrodesis with external fixation with application of biologics (bone marrow aspirate harvested from proximal tibia and amniofill) and achilles tenotomy. She rates her pain as 8/10 at worse to her surgical site and leg. She denies fever, chills, nausea, shortness of breath, chest pain. She denies constipation and has not had a bowel movement since surgery. She has a ortiz in place and requests removal. - Physical Exam Vitals/I&O's: Vital Signs Temp Pulse Resp BP Pulse Ox 99 F 97 18 144/76 H 96 08/09/20 03:30 08/09/20 03:30 08/09/20 03:30 08/09/20 03:30 08/09/20 03:30 Oxygen Flow Rate (L/min) 4 Oxygen Delivery Method Nasal Cannula Weight: 86.5 kg Body Mass Index (BMI) 31.4 Finger Stick Blood Glucose 209 Intake and Output for Last 24 Hours 08/07/20 08/08/20 08/09/20 23:59 23:59 23:59 Intake Total 1581.75 / 1581.75 2033.25 / 2033.25 1048.75 / 1048.75 Output Total 400 / 400 300 / 300 1050 / 1050 Balance 1181.75 / 1181.75 1733.25 / 1733.25 -1.25 / -1.25 General: Alert, Oriented x3, Cooperative HEENT: Atraumatic Lungs: Clear to auscultation, Wheezes - left lower Cardiovascular: Regular rate, Regular Rhythm Extremities: Capillary Refill Less than 3 Seconds - all digits left lower extremity Skin: - - dressing intact without strikethrough left lower extremity. external fixation device intact with left lower extremity limb in maintained rectus alignment. Musculoskeletal: Tenderness Neurological: Sensory exam intact to light touch and pain - to digits left lower extremity via light touch Psych/Mental Status: Normal Affect, Appropriate Microbiology Past 72 Hours 08/05/20 Unknown Wound Abcess - Aerobic & Anaerobic Swabs Gram Stain - Final 08/05/20 Unknown Wound Abcess - Aerobic & Anaerobic Swabs Wound Culture - Final No growth aerobically. 08/05/20 Unknown Wound Abcess - Aerobic & Anaerobic Swabs Anaerobic Culture - Final No anaerobic bacteria isolated. 08/05/20 Unknown Bone - Other Gram Stain - Final 08/05/20 Unknown Bone - Other Wound Culture - Final Staphylococcus epidermidis Corynebacterium striatum 08/05/20 Unknown Bone - Other Anaerobic Culture - Final No anaerobic bacteria isolated. 08/04/20 18:00 Wound - Left Foot Anaerobic Culture - Final No anaerobic bacteria isolated. 08/04/20 17:55 Blood Culture (Wb) - Anticubital Left Blood Culture - Preliminary No growth in 48 hours. 08/04/20 17:50 Blood Culture (Wb) - Anticubital Right Blood Culture - Preliminary No growth in 48 hours. Laboratory Results 08/08/20 09:16: POC Glucose 183 H 08/08/20 12:56: POC Glucose 181 H 08/08/20 16:08: POC Glucose 209 H 08/08/20 17:58: POC Glucose 245 H 08/08/20 21:38: POC Glucose 272 H 08/09/20 05:35: WBC 12.4 H, RBC 2.69 L, Hgb 7.1 L, Hct 24.7 L, MCV 91.8, MCH 26.4 L, MCHC 28.7 L, RDW Std Deviation 54.9 H, RDW Coeff of Krista 16.2 H, Plt Count 349, MPV 10.0, Immature Gran % (Auto) 0.400, Neut % (Auto) 82.6 H, Lymph % (Auto) 6.8 L, [place] % (Auto) 8.6, Eos % (Auto) 1.1, Baso % (Auto) 0.5, Absolute Neuts (auto) 10.2 H, Absolute Lymphs (auto) 0.84, Nucleated RBC % 0 08/09/20 05:35: Sodium 141, Potassium 5.6 H, Chloride 112 H, Carbon Dioxide 26.0, Anion Gap 3 L, BUN 28 H, Creatinine 1.78 H, Estim Creat Clear Calc 33.27, Est GFR (MDRD) Af Amer 39 L, Est GFR (MDRD) Non-Af 32 L, BUN/Creatinine Ratio 15.7, Glucose 198 H, Calcium 8.4 L, Total Bilirubin 0.20, AST 8 L, ALT 13, Alkaline Phosphatase 242 H, Total Protein 6.0 L, Albumin 1.5 L, Globulin 4.5 H, Albumin/Globulin Ratio 0.3 L Current Medications Acetaminophen (Acetaminophen 325 Mg Tablet) 650 mg PO Q6H PRN PRN PRN Reason: Pain Score 1-10/Temp > 100.7 F Last Admin: 08/07/20 18:57 Dose: 650 mg Documented by: Albuterol Sulfate (Albuterol 2.5 Mg/3 Ml Vial.Neb.) 2.5 mg INHALATION Q2H PRN PRN PRN Reason: Dyspnea, wheezing Albuterol/Ipratropium (Ipratropium/Albuterol Sulfate 3 Ml Ampul.Neb) 3 ml INHALATION Q6HWA.RT [facility] Last Admin: 08/08/20 19:17 Dose: 3 ml Documented by: Ascorbic Acid (Ascorbic Acid 500 Mg Tablet) 500 mg PO DAILY [facility] Last Admin: 08/09/20 08:19 Dose: 500 mg Documented by: Docusate Sodium (Docusate Sodium 100 Mg Capsule) 100 mg PO BID PRN PRN PRN Reason: Constipation Last Admin: 08/06/20 14:34 Dose: 100 mg Documented by: Doxazosin Mesylate (Doxazosin 1 Mg Tablet) 2 mg PO QHS [facility] Last Admin: 08/08/20 21:45 Dose: 2 mg Documented by: Duloxetine HCl (Duloxetine Hcl 30 Mg Capsule) 30 mg PO BID [facility] Last Admin: 08/09/20 08:19 Dose: 30 mg Documented by: Enoxaparin Sodium (Enoxaparin 40 Mg/0.4 Ml Syringe) 40 mg SC DAILY@0600 [facility] Last Admin: 08/07/20 06:06 Dose: 40 mg Documented by: Ergocalciferol (Ergocalciferol 50,000 Unit Capsule) 50,000 unit PO Fr@1000 [facility] Last Admin: 08/08/20 14:00 Dose: Not Given Documented by: Furosemide (Furosemide 40 Mg Tablet) 40 mg PO DAILY [facility] Last Admin: 08/09/20 08:19 Dose: 40 mg Documented by: Piperacillin Sod/Tazobactam (Sod 3.375 gm/ Sodium Chloride) 50 mls @ 12.5 mls/hr IV Q8 [facility] Last Admin: 08/09/20 05:06 Dose: 12.5 mls/hr Documented by: Vancomycin IV Pharmacy to Dose (1 each/ Sodium Chloride) 500 mls @ 250 mls/hr IV X1 PRN; Protocol PRN Reason: Rx to Dose Dextrose/Sodium Chloride (Dextrose 5%/0.9% Nacl) 1,000 mls @ 75 mls/hr IV .[id number] [facility] Last Admin: 08/09/20 05:05 Dose: 75 mls/hr Documented by: Sodium Chloride () 250 mls @ 15 mls/hr IV .[id number] PRN PRN Reason: Saline Flush Last Infusion: 08/09/20 05:10 Dose: 0 mls/hr Documented by: Insulin Glargine (Insulin Glargine 100 Units/Ml Pen) 22 units SC 1100,2200 [facility] Last Admin: 08/08/20 21:39 Dose: 22 units Documented by: Insulin Human Lispro (Insulin Lispro 100 Unit/Ml Insuln.Pen) 0 unit SC ACHS [facility]; Protocol Last Admin: 08/09/20 08:10 Dose: 1 units Documented by: Insulin Human Lispro (Insulin Lispro 100 Unit/Ml Insuln.Pen) 13 unit SC 0800,1200,1700 [facility] Last Admin: 08/09/20 08:12 Dose: 13 unit Documented by: L-Arginine/L-Glutamine/Calcium HMB (Valentin (Unflavored) Packet) [facility] Last Admin: 08/09/20 08:19 Dose: 1 packet Documented by: Levetiracetam (Levetiracetam 500 Mg Tablet) 500 mg PO BID [facility] Last Admin: 08/09/20 08:19 Dose: 500 mg Documented by: Morphine Sulfate (Morphine 2 Mg/Ml Syringe) 2 mg IV Q3H PRN PRN PRN Reason: Pain Score 6-10 Last Admin: 08/08/20 21:35 Dose: 2 mg Documented by: Ondansetron HCl (Ondansetron 4 Mg/2 Ml Vial) 4 mg IV Q8H PRN PRN PRN Reason: NAUSEA/VOMITING Last Admin: 08/08/20 01:44 Dose: 4 mg Documented by: Oxycodone HCl (Oxycodone 5 Mg Tablet) 5 mg PO Q4H PRN PRN PRN Reason: Pain Score 4-5 Last Admin: 08/07/20 18:57 Dose: 5 mg Documented by: Pregabalin (Pregabalin 50 Mg Capsule) 200 mg PO BID [facility] Last Admin: 08/08/20 21:39 Dose: 200 mg Documented by: Risperidone (Risperidone 0.25 Mg Tablet) 0.25 mg PO BID [facility] Last Admin: 08/09/20 08:20 Dose: 0.25 mg Documented by: Sodium Chloride (0.9% Saline Lock 10 Ml Syringe) 10 - 40 ml IV UD PRN PRN Reason: SALINE FLUSH Last Admin: 08/08/20 06:22 Dose: 10 ml Documented by: Tolterodine Tartrate (Tolterodine Tartrate 2 Mg Cap.Sa) 2 mg PO DAILY [facility] Last Admin: 08/09/20 08:19 Dose: 2 mg Documented by: Medical Necessity - Tobacco Use Smoking Status: Current every day smoker Tobacco Use: Cigarettes Assessment/Plan All Active Problems (Last Reviewed 08/04/20 @ 21:07 by Zuleyka Donald, [employer] RE[employer]-C) Acute electrocardiogram changes (Acute) Hypoxia (Acute) Fracture tibia/fibula (Acute) Open left ankle fracture (Acute) Displaced bimalleolar fracture of left lower leg, subsequent encounter for closed fracture with delayed healing (Acute) Hyperglycemia (Acute) Dehydration (Acute) Leukocytosis (Acute) Altered level of consciousness (Acute) Hyperglycemia due to type 2 diabetes mellitus (Acute) Hypoxemia (Acute) MICHELE (acute kidney injury) (Acute) HHNC (hyperglycemic hyperosmolar nonketotic coma) (Acute) POD #1 left ankle arthrodesis with external fixation application with application of biologics (bone marrow aspirate harvested from proximal tibia and amniofill) and achilles tenotomy 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 She is afebrile and vital signs are stable. Labs reviewed with WBC 12.4. Reduce hemoglobin as noted at 7.1; blood transfusion ordered. Post operative xrays reviewed with arthrodesis in corrected deformity position and placement of external fixation device with hardware in desired position. No acute injuries seen. External fixation device is intact and dressing is also intact. Dressing change will be performed tomorrow. Treated for osteo with extended bone exposure from wound; under infectious disease management. PICC line was placed and she is on broad-spectrum vancomycin and Zosyn. Micro results demonstrate staph epidermidis and corynebacterium so far. Additional susceptibilities requested. Blood cultures negative so far. Her creatinine is slightly increasing each day and narrowing antibiotics will be considered. Initial bone biopsy pathology report is still pending. During her ankle arthrodesis, there was no purulence, necrosis or devitalized tissue noted. With her ankle in a more rectus alignment, perfusion to the foot improved and she demonstrated healthy bleeding tissue. A1C recently improved to 8% and tobacco cessation while at facility. Her Vitamin D was 40; on weekly supplementation. Nutritional supplementation ordered to optimize healing. Strict nonweightbearing to left lower extremity. Continue to work with PT/OT. Medical management and DVT prophylaxis per hospitalist service appreciated. Enoxoparin held until after transfusion. To continue incentive spirometer use while awake. Discharge planning includes antibiotics and SNF placement for rehabilitation. [facility] after [facility]. Please do not hesitate to call if you have any questions. Discussed with Dr. Denise. Vicki Allred DPM, FACFAS [facility] [phone]
--- NOTE | 2020-08-09 10:08 | PCM.PROGNOTE ---
<Lashaun Xiong SENIOR NET SOFTWARE ENGINEER - Last Filed: 08/09/20 10:21> Patient Problems: Active and Suspected Problems (Last Reviewed 08/04/20 @ 21:07 by Zuleyka Donald NP-C) Hypoxia (Acute) secondary to COPD with altered mental status Fracture tibia/fibula (Acute) left-recent (06/21/20) Open left ankle fracture (Acute) Leukocytosis (Acute) Subjective: Patient seen and examined. Reports 8/10 foot pain however patient's eyes are closed and intermittently falling asleep during conversation. She denies other symptoms or complaints - Physical Exam Vitals/I&O's: Vital Signs Temp Pulse Resp BP Pulse Ox 99 F 97 18 144/76 H 96 08/09/20 03:30 08/09/20 03:30 08/09/20 03:30 08/09/20 03:30 08/09/20 08:40 Oxygen Flow Rate (L/min) 3 Oxygen Delivery Method Nasal Cannula Weight: 190 lb 11.198 oz Body Mass Index (BMI) 31.4 Finger Stick Blood Glucose 209 Intake and Output for Last 24 Hours 08/07/20 08/08/20 08/09/20 23:59 23:59 23:59 Intake Total 1581.75 / 1581.75 2033.25 / 2033.25 1048.75 / 1048.75 Output Total 400 / 400 300 / 300 1050 / 1050 Balance 1181.75 / 1181.75 1733.25 / 1733.25 -1.25 / -1.25 General: Oriented x3, Cooperative, No apparent distress HEENT: Atraumatic, PERRLA, EOMI, Normocephalic Neck: Supple, No JVD, Negative Carotid Bruits Lungs: Clear to auscultation, Diminished Cardiovascular: Regular rate, No murmurs Abdomen: Bowel Sounds Present, Soft, Non Tender, Non-Distended, Obese Extremities: No clubbing, No cyanosis, No edema Skin: - - Left foot postop dressing intact Musculoskeletal: No Tenderness to Palpation of Joints or Extremities Neurological: Cranial nerves II-XII grossly intact, Neuro grossly intact Psych/Mental Status: Flat Affect Microbiology Past 72 Hours 08/05/20 Unknown Wound Abcess - Aerobic & Anaerobic Swabs Gram Stain - Final 08/05/20 Unknown Wound Abcess - Aerobic & Anaerobic Swabs Wound Culture - Final No growth aerobically. 08/05/20 Unknown Wound Abcess - Aerobic & Anaerobic Swabs Anaerobic Culture - Final No anaerobic bacteria isolated. 08/05/20 Unknown Bone - Other Gram Stain - Final 08/05/20 Unknown Bone - Other Wound Culture - Final Staphylococcus epidermidis Corynebacterium striatum 08/05/20 Unknown Bone - Other Anaerobic Culture - Final No anaerobic bacteria isolated. 08/04/20 18:00 Wound - Left Foot Anaerobic Culture - Final No anaerobic bacteria isolated. 08/04/20 17:55 Blood Culture (Wb) - Anticubital Left Blood Culture - Preliminary No growth in 48 hours. 08/04/20 17:50 Blood Culture (Wb) - Anticubital Right Blood Culture - Preliminary No growth in 48 hours. Laboratory Results 08/07/20 16:31: Crossmatch See Detail 08/08/20 12:56: POC Glucose 181 H 08/08/20 16:08: POC Glucose 209 H 08/08/20 17:58: POC Glucose 245 H 08/08/20 21:38: POC Glucose 272 H 08/09/20 05:35: WBC 12.4 H, RBC 2.69 L, Hgb 7.1 L, Hct 24.7 L, MCV 91.8, MCH 26.4 L, MCHC 28.7 L, RDW Std Deviation 54.9 H, RDW Coeff of Krista 16.2 H, Plt Count 349, MPV 10.0, Immature Gran % (Auto) 0.400, Neut % (Auto) 82.6 H, Lymph % (Auto) 6.8 L, [place] % (Auto) 8.6, Eos % (Auto) 1.1, Baso % (Auto) 0.5, Absolute Neuts (auto) 10.2 H, Absolute Lymphs (auto) 0.84, Nucleated RBC % 0 08/09/20 05:35: Sodium 141, Potassium 5.6 H, Chloride 112 H, Carbon Dioxide 26.0, Anion Gap 3 L, BUN 28 H, Creatinine 1.78 H, Estim Creat Clear Calc 33.27, Est GFR (MDRD) Af Amer 39 L, Est GFR (MDRD) Non-Af 32 L, BUN/Creatinine Ratio 15.7, Glucose 198 H, Calcium 8.4 L, Total Bilirubin 0.20, AST 8 L, ALT 13, Alkaline Phosphatase 242 H, Total Protein 6.0 L, Albumin 1.5 L, Globulin 4.5 H, Albumin/Globulin Ratio 0.3 L Current Medications Acetaminophen (Acetaminophen 325 Mg Tablet) 650 mg PO Q6H PRN PRN PRN Reason: Pain Score 1-10/Temp > 100.7 F Last Admin: 08/07/20 18:57 Dose: 650 mg Documented by: Albuterol Sulfate (Albuterol 2.5 Mg/3 Ml Vial.Neb.) 2.5 mg INHALATION Q2H PRN PRN PRN Reason: Dyspnea, wheezing Albuterol/Ipratropium (Ipratropium/Albuterol Sulfate 3 Ml Ampul.Neb) 3 ml INHALATION Q6HWA.RT [facility] Last Admin: 08/08/20 19:17 Dose: 3 ml Documented by: Ascorbic Acid (Ascorbic Acid 500 Mg Tablet) 500 mg PO DAILY [facility] Last Admin: 08/09/20 08:19 Dose: 500 mg Documented by: Docusate Sodium (Docusate Sodium 100 Mg Capsule) 100 mg PO BID PRN PRN PRN Reason: Constipation Last Admin: 08/06/20 14:34 Dose: 100 mg Documented by: Doxazosin Mesylate (Doxazosin 1 Mg Tablet) 2 mg PO QHS [facility] Last Admin: 08/08/20 21:45 Dose: 2 mg Documented by: Duloxetine HCl (Duloxetine Hcl 30 Mg Capsule) 30 mg PO BID [facility] Last Admin: 08/09/20 08:19 Dose: 30 mg Documented by: Enoxaparin Sodium (Enoxaparin 40 Mg/0.4 Ml Syringe) 40 mg SC DAILY@0600 [facility] Last Admin: 08/07/20 06:06 Dose: 40 mg Documented by: Ergocalciferol (Ergocalciferol 50,000 Unit Capsule) 50,000 unit PO Fr@1000 [facility] Last Admin: 08/08/20 14:00 Dose: Not Given Documented by: Furosemide (Furosemide 40 Mg Tablet) 40 mg PO DAILY [facility] Last Admin: 08/09/20 08:19 Dose: 40 mg Documented by: Piperacillin Sod/Tazobactam (Sod 3.375 gm/ Sodium Chloride) 50 mls @ 12.5 mls/hr IV Q8 [facility] Last Admin: 08/09/20 05:06 Dose: 12.5 mls/hr Documented by: Vancomycin IV Pharmacy to Dose (1 each/ Sodium Chloride) 500 mls @ 250 mls/hr IV X1 PRN; Protocol PRN Reason: Rx to Dose Dextrose/Sodium Chloride (Dextrose 5%/0.9% Nacl) 1,000 mls @ 75 mls/hr IV .[id number] [facility] Last Admin: 08/09/20 05:05 Dose: 75 mls/hr Documented by: Sodium Chloride () 250 mls @ 15 mls/hr IV .[id number] PRN PRN Reason: Saline Flush Last Infusion: 08/09/20 05:10 Dose: 0 mls/hr Documented by: Insulin Glargine (Insulin Glargine 100 Units/Ml Pen) 22 units SC 1100,2200 [facility] Last Admin: 08/08/20 21:39 Dose: 22 units Documented by: Insulin Human Lispro (Insulin Lispro 100 Unit/Ml Insuln.Pen) 0 unit SC ACHS [facility]; Protocol Last Admin: 08/09/20 08:10 Dose: 1 units Documented by: Insulin Human Lispro (Insulin Lispro 100 Unit/Ml Insuln.Pen) 13 unit SC 0800,1200,1700 [facility] Last Admin: 08/09/20 08:12 Dose: 13 unit Documented by: L-Arginine/L-Glutamine/Calcium HMB ([facility] ([facility]flavored) Packet) [facility] Last Admin: 08/09/20 08:19 Dose: 1 packet Documented by: Levetiracetam (Levetiracetam 500 Mg Tablet) 500 mg PO BID [facility] Last Admin: 08/09/20 08:19 Dose: 500 mg Documented by: Morphine Sulfate (Morphine 2 Mg/Ml Syringe) 2 mg IV Q3H PRN PRN PRN Reason: Pain Score 6-10 Last Admin: 08/08/20 21:35 Dose: 2 mg Documented by: Ondansetron HCl (Ondansetron 4 Mg/2 Ml Vial) 4 mg IV Q8H PRN PRN PRN Reason: NAUSEA/VOMITING Last Admin: 08/08/20 01:44 Dose: 4 mg Documented by: Oxycodone HCl (Oxycodone 5 Mg Tablet) 5 mg PO Q4H PRN PRN PRN Reason: Pain Score 4-5 Last Admin: 08/07/20 18:57 Dose: 5 mg Documented by: Pregabalin (Pregabalin 50 Mg Capsule) 200 mg PO BID [facility] Last Admin: 08/08/20 21:39 Dose: 200 mg Documented by: Risperidone (Risperidone 0.25 Mg Tablet) 0.25 mg PO BID [facility] Last Admin: 08/09/20 08:20 Dose: 0.25 mg Documented by: Sodium Chloride (0.9% Saline Lock 10 Ml Syringe) 10 - 40 ml IV UD PRN PRN Reason: SALINE FLUSH Last Admin: 08/08/20 06:22 Dose: 10 ml Documented by: Tolterodine Tartrate (Tolterodine Tartrate 2 Mg Cap.Sa) 2 mg PO DAILY [facility] Last Admin: 08/09/20 08:19 Dose: 2 mg Documented by: Medical Necessity - Tobacco Use Smoking Status: Current every day smoker Tobacco Use: Cigarettes Assessment/Plan All Active Problems (Last Reviewed 08/04/20 @ 21:07 by Zuleyka Donald, SENIOR NET SOFTWARE ENGINEER-C) Acute electrocardiogram changes (Acute) Hypoxia (Acute) Fracture tibia/fibula (Acute) Open left ankle fracture (Acute) Displaced bimalleolar fracture of left lower leg, subsequent encounter for closed fracture with delayed healing (Acute) Hyperglycemia (Acute) Dehydration (Acute) Leukocytosis (Acute) Altered level of consciousness (Acute) Hyperglycemia due to type 2 diabetes mellitus (Acute) Hypoxemia (Acute) MICHELE (acute kidney injury) (Acute) HHNC (hyperglycemic hyperosmolar nonketotic coma) (Acute) 1. Left ankle wound with osteomyelitis due to chronic open left ankle fracture-status post wound debridement, bone biopsy and temporary reduction. OR 08/08/2020 for placement of external fixation, staged stability. Management per podiatry. ID following. Continue Zosyn and vancomycin. Follow cultures. As needed pain regimen. PT/OT. 2. Type 2 diabetes [id number] with sliding scale insulin. Continue home Lantus regimen. 3. Chronic hypoxia secondary to chronic COPD, suspect underlying NORRIS as well-continue supplement oxygen to maintain O2 at or above 90%. IS. Albuterol DuoNeb aerosols. 4. History of grand mal seizures-on Keppra. 5. Schizophrenia/anxiety/depression-on Cymbalta, risperidone. 6. Vitamin D deficiency-continue replacement. 7. Acute blood loss anemia, expected outcome related to #1-2 units PRBC ordered for hemoglobin 7.1. Trend CBC. 8. Chronic kidney disease stage IIIb-at baseline, trend BMP. DVT prophylaxis- Lovenox sc This patient was seen by CHARLY Montalvo under the supervision of Dr. Denise. <David Denise F - Last Filed: 08/09/20 13:27> - Physical Exam Vitals/I&O's: Vital Signs Temp Pulse Resp BP Pulse Ox 98.3 F 96 18 147/72 H 98 08/09/20 11:46 08/09/20 11:46 08/09/20 11:46 08/09/20 11:46 08/09/20 11:46 Oxygen Flow Rate (L/min) 4 Oxygen Delivery Method Nasal Cannula Weight: 190 lb 11.198 oz Body Mass Index (BMI) 31.4 Finger Stick Blood Glucose 209 Intake and Output for Last 24 Hours 08/07/20 08/08/20 08/09/20 23:59 23:59 23:59 Intake Total 1581.75 / 1581.75 2033.25 / 2033.25 1338.75 / 1338.75 Output Total 400 / 400 300 / 300 1450 / 1450 Balance 1181.75 / 1181.75 1733.25 / 1733.25 -111.25 / -111.25 Microbiology Past 72 Hours 08/05/20 Unknown Bone - Other Gram Stain - Final 08/05/20 Unknown Bone - Other Wound Culture - Preliminary Staphylococcus epidermidis Corynebacterium striatum 08/05/20 Unknown Bone - Other Anaerobic Culture - Final No anaerobic bacteria isolated. 08/05/20 Unknown Wound Abcess - Aerobic & Anaerobic Swabs Gram Stain - Final 08/05/20 Unknown Wound Abcess - Aerobic & Anaerobic Swabs Wound Culture - Final No growth aerobically. 08/05/20 Unknown Wound Abcess - Aerobic & Anaerobic Swabs Anaerobic Culture - Final No anaerobic bacteria isolated. 08/04/20 18:00 Wound - Left Foot Anaerobic Culture - Final No anaerobic bacteria isolated. 08/04/20 17:55 Blood Culture (Wb) - Anticubital Left Blood Culture - Preliminary No growth in 48 hours. 08/04/20 17:50 Blood Culture (Wb) - Anticubital Right Blood Culture - Preliminary No growth in 48 hours. Laboratory Results 08/07/20 16:31: Crossmatch See Detail 08/08/20 16:08: POC Glucose 209 H 08/08/20 17:58: POC Glucose 245 H 08/08/20 21:38: POC Glucose 272 H 08/09/20 05:35: WBC 12.4 H, RBC 2.69 L, Hgb 7.1 L, Hct 24.7 L, MCV 91.8, MCH 26.4 L, MCHC 28.7 L, RDW Std Deviation 54.9 H, RDW Coeff of Krista 16.2 H, Plt Count 349, MPV 10.0, Immature Gran % (Auto) 0.400, Neut % (Auto) 82.6 H, Lymph % (Auto) 6.8 L, [place] % (Auto) 8.6, Eos % (Auto) 1.1, Baso % (Auto) 0.5, Absolute Neuts (auto) 10.2 H, Absolute Lymphs (auto) 0.84, Nucleated RBC % 0 08/09/20 05:35: Sodium 141, Potassium 5.6 H, Chloride 112 H, Carbon Dioxide 26.0, Anion Gap 3 L, BUN 28 H, Creatinine 1.78 H, Estim Creat Clear Calc 33.27, Est GFR (MDRD) Af Amer 39 L, Est GFR (MDRD) Non-Af 32 L, BUN/Creatinine Ratio 15.7, Glucose 198 H, Calcium 8.4 L, Total Bilirubin 0.20, AST 8 L, ALT 13, Alkaline Phosphatase 242 H, Total Protein 6.0 L, Albumin 1.5 L, Globulin 4.5 H, Albumin/Globulin Ratio 0.3 L 08/09/20 08:08: POC Glucose 167 H 08/09/20 12:01: POC Glucose 105 Current Medications Acetaminophen (Acetaminophen 325 Mg Tablet) 650 mg PO Q6H PRN PRN PRN Reason: Pain Score 1-10/Temp > 100.7 F Last Admin: 08/07/20 18:57 Dose: 650 mg Documented by: Albuterol Sulfate (Albuterol 2.5 Mg/3 Ml Vial.Neb.) 2.5 mg INHALATION Q2H PRN PRN PRN Reason: Dyspnea, wheezing Albuterol/Ipratropium (Ipratropium/Albuterol Sulfate 3 Ml Ampul.Neb) 3 ml INHALATION Q6HWA.RT [facility] Last Admin: 08/08/20 19:17 Dose: 3 ml Documented by: Ascorbic Acid (Ascorbic Acid 500 Mg Tablet) 500 mg PO DAILY [facility] Last Admin: 08/09/20 08:19 Dose: 500 mg Documented by: Docusate Sodium (Docusate Sodium 100 Mg Capsule) 100 mg PO BID PRN PRN PRN Reason: Constipation Last Admin: 08/06/20 14:34 Dose: 100 mg Documented by: Doxazosin Mesylate (Doxazosin 1 Mg Tablet) 2 mg PO QHS [facility] Last Admin: 08/08/20 21:45 Dose: 2 mg Documented by: Duloxetine HCl (Duloxetine Hcl 30 Mg Capsule) 30 mg PO BID [facility] Last Admin: 08/09/20 08:19 Dose: 30 mg Documented by: Enoxaparin Sodium (Enoxaparin 40 Mg/0.4 Ml Syringe) 40 mg SC DAILY@0600 [facility] Last Admin: 08/07/20 06:06 Dose: 40 mg Documented by: Ergocalciferol (Ergocalciferol 50,000 Unit Capsule) 50,000 unit PO Fr@1000 [facility] Last Admin: 08/08/20 14:00 Dose: Not Given Documented by: Furosemide (Furosemide 40 Mg Tablet) 40 mg PO DAILY [facility] Last Admin: 08/09/20 08:19 Dose: 40 mg Documented by: Piperacillin Sod/Tazobactam (Sod 3.375 gm/ Sodium Chloride) 50 mls @ 12.5 mls/hr IV Q8 [facility] Last Infusion: 08/09/20 09:06 Dose: Infused Documented by: Dextrose/Sodium Chloride (Dextrose 5%/0.9% Nacl) 1,000 mls @ 75 mls/hr IV .[id number] [facility] Last Admin: 08/09/20 05:05 Dose: 75 mls/hr Documented by: Sodium Chloride () 250 mls @ 15 mls/hr IV .[id number] PRN PRN Reason: Saline Flush Last Infusion: 08/09/20 05:10 Dose: 0 mls/hr Documented by: Insulin Glargine (Insulin Glargine 100 Units/Ml Pen) 25 units SC 1100,2200 [facility] Last Admin: 08/09/20 12:09 Dose: 25 u Documented by: Insulin Human Lispro (Insulin Lispro 100 Unit/Ml Insuln.Pen) 0 unit SC ACHS [facility]; Protocol Last Admin: 08/09/20 12:04 Dose: Not Given Documented by: Insulin Human Lispro (Insulin Lispro 100 Unit/Ml Insuln.Pen) 15 unit SC 0800,1200,1700 [facility] Last Admin: 08/09/20 13:04 Dose: Not Given Documented by: L-Arginine/L-Glutamine/Calcium HMB (Valentin (Unflavored) Packet) [facility] Last Admin: 08/09/20 08:19 Dose: 1 packet Documented by: Levetiracetam (Levetiracetam 500 Mg Tablet) 500 mg PO BID [facility] Last Admin: 08/09/20 08:19 Dose: 500 mg Documented by: Morphine Sulfate (Morphine 2 Mg/Ml Syringe) 2 mg IV Q3H PRN PRN PRN Reason: Pain Score 6-10 Last Admin: 08/08/20 21:35 Dose: 2 mg Documented by: Ondansetron HCl (Ondansetron 4 Mg/2 Ml Vial) 4 mg IV Q8H PRN PRN PRN Reason: NAUSEA/VOMITING Last Admin: 08/08/20 01:44 Dose: 4 mg Documented by: Oxycodone HCl (Oxycodone 5 Mg Tablet) 5 mg PO Q4H PRN PRN PRN Reason: Pain Score 4-5 Last Admin: 08/07/20 18:57 Dose: 5 mg Documented by: Pregabalin (Pregabalin 50 Mg Capsule) 200 mg PO BID [facility] Last Admin: 08/09/20 10:59 Dose: 200 mg Documented by: Risperidone (Risperidone 0.25 Mg Tablet) 0.25 mg PO BID [facility] Last Admin: 08/09/20 08:20 Dose: 0.25 mg Documented by: Sodium Chloride (0.9% Saline Lock 10 Ml Syringe) 10 - 40 ml IV UD PRN PRN Reason: SALINE FLUSH Last Admin: 08/08/20 06:22 Dose: 10 ml Documented by: Tolterodine Tartrate (Tolterodine Tartrate 2 Mg Cap.Sa) 2 mg PO DAILY [facility] Last Admin: 08/09/20 08:19 Dose: 2 mg Documented by: Addendum: Dr. Denise I personally examined the patient and reviewed the chart. I agree with the above. 50-year-old female with history of schizophrenia and diabetes presents to the hospital for surgery by podiatry. She was following up with her pants closer and was having an open wound over the medial aspect of the left ankle. Cultures demonstrating staph epi as well as corynebacterium. Her creatinine has been climbing with her vancomycin therefore given that her MRSA PCR was negative we will discontinue her vancomycin at this time. Can adjust antibiotics as necessary. Will discharge back to SNF for therapy when medically stable. Inpatient E&M: [id number] Subs Hosp L2
[2020-08-09] MEDS: Pregabalin 50 MG Capsule 200 MG PO ×2 (10:59→23:05)
[2020-08-09 11:10] LABS: Bedside Glucose 167 mg/dL (70-110)
[2020-08-09 12:15] LABS: Bedside Glucose 105 mg/dL (70-110)
[2020-08-09] MEDS: oxyCODONE 5 MG Tablet PO ×3 (14:01→22:54)
[2020-08-09 16:20] LABS: Bedside Glucose 119 mg/dL (70-110)
[2020-08-09] MEDS: Insulin Lispro 100 UNIT/ML INSULN.PEN 15 UNIT SC (17:07)
[2020-08-09] MEDS: Ipratropium/Albuterol Sulfate 3 ML AMPUL.NEB INHALATION (18:58)
[2020-08-09] MEDS: Doxazosin 1 MG Tablet 2 MG PO (22:56)
[2020-08-09 23:06] LABS: Bedside Glucose 128 mg/dL (70-110)
[2020-08-10] VITALS (9 sets, daily range): BP systolic 146–161; BP diastolic 66–81; PULSE 88–104; RESP 16–18; TEMP 36.6–36.8; O2SAT 90–102
[2020-08-10] MEDS: oxyCODONE 5 MG Tablet PO ×2 (03:30→11:55)
[2020-08-10] MEDS: Dextrose 5%/0.9% NaCl 1,000 ML 75 ML IV ×2 (03:30→16:44)
[2020-08-10] MEDS: Enoxaparin 40 MG/0.4 ML Syringe SC (06:11)
[2020-08-10 06:49] LABS: Hematocrit 32.6 % (37-47); Hemoglobin 9.4 g/dL (12.0-15.0); Mean Corp Hgb Conc 28.8 g/dL (32-36); Mean Corpuscular Volume 93.7 fL (81-99); Mean Platelet Vol. 10.4 fl (6.2-12.0); Platelet Count 369 K/mm3 (150-450); RBC Distribution Width CV 16.2 % (11.6-14.6); RBC Distribution Width SD 55.8 fl (35.1-43.9); Red Blood Count 3.48 M/mm3 (4.2-5.4); White Blood Count 12.3 K/mm3 (4.4-11.0)
[2020-08-10 07:15] LABS: Vancomycin, Random Level 5.2 ug/mL (0.0-15.0)
[2020-08-10] MEDS: Morphine 2 MG/ML Syringe IV (08:05)
[2020-08-10] MEDS: 0.9% Saline Lock 10 ML Syringe IV (08:05)
[2020-08-10] MEDS: Insulin Lispro 100 UNIT/ML INSULN.PEN SC (08:09)
[2020-08-10] MEDS: Insulin Lispro 100 UNIT/ML INSULN.PEN 15 UNIT SC ×2 (08:10→11:51)
--- NOTE | 2020-08-10 08:14 | PCM.PROGNOTE ---
Patient Problems: Active and Suspected Problems (Last Reviewed 08/04/20 @ 21:07 by Zuleyka Donald, [employer]-C) Hypoxia (Acute) secondary to COPD with altered mental status Fracture tibia/fibula (Acute) left-recent (06/21/20) Open left ankle fracture (Acute) Leukocytosis (Acute) Subjective: Patient seen bedside POD #2 left ankle arthrodesis with external fixation with application of biologics (bone marrow aspirate harvested from proximal tibia and amniofill) and achilles tenotomy for treatment of open unstable chronic ankle fracture dislocation. She rates her pain as 8/10 at worse to her surgical site however she is resting comfortably. She denies fever, chills, nausea, shortness of breath, chest pain. She was premedicated prior to dressing change this morning. - Physical Exam Vitals/I&O's: Vital Signs Temp Pulse Resp BP Pulse Ox 98.3 F 94 18 158/81 H 92 08/10/20 03:24 08/10/20 03:24 08/10/20 03:24 08/10/20 03:24 08/10/20 07:22 Oxygen Flow Rate (L/min) 4 Oxygen Delivery Method Nasal Cannula Weight: 86.5 kg Body Mass Index (BMI) 31.4 Finger Stick Blood Glucose 209 Intake and Output for Last 24 Hours 08/08/20 08/09/20 08/10/20 23:59 23:59 23:59 Intake Total 2033.25 / 2033.25 3778.75 / 3778.75 290 / 290 Output Total 300 / 300 2450 / 2450 Balance 1733.25 / 1733.25 1328.75 / 1328.75 290 / 290 General: Alert, Cooperative, Lethargic HEENT: Atraumatic Lungs: Clear to auscultation, Diminished Cardiovascular: Regular rate, Regular Rhythm Extremities: No cyanosis, Capillary Refill Less than 3 Seconds - all digits left, Peripheral Pulses Normal - palpable dp, left Skin: Incision - well aligned and coapted with sutures and nhung lateral ankle. medial ankle with amniofill site secure with adaptic sutured. no purulence, erythema, streaking, odor or clinical infection noted today. all pin and wires sites appear clean and stable. hematogenous drainage only on inner dressing Musculoskeletal: Muscle Wasting, - - rectus left lower extremity with external fixation in place. no skin tending. compartment so left lower extremity remain soft to palpate Neurological: Sensory exam intact to light touch and pain Psych/Mental Status: Normal Affect, Appropriate Microbiology Past 72 Hours 08/04/20 17:55 Blood Culture (Wb) - Anticubital Left Blood Culture - Final No growth in 5 days. 08/04/20 17:50 Blood Culture (Wb) - Anticubital Right Blood Culture - Final No growth in 5 days. 08/05/20 Unknown Bone - Other Gram Stain - Final 08/05/20 Unknown Bone - Other Wound Culture - Preliminary Staphylococcus epidermidis Corynebacterium striatum 08/05/20 Unknown Bone - Other Anaerobic Culture - Final No anaerobic bacteria isolated. 08/05/20 Unknown Wound Abcess - Aerobic & Anaerobic Swabs Gram Stain - Final 08/05/20 Unknown Wound Abcess - Aerobic & Anaerobic Swabs Wound Culture - Final No growth aerobically. 08/05/20 Unknown Wound Abcess - Aerobic & Anaerobic Swabs Anaerobic Culture - Final No anaerobic bacteria isolated. 08/04/20 18:00 Wound - Left Foot Anaerobic Culture - Final No anaerobic bacteria isolated. Laboratory Results 08/07/20 16:31: Crossmatch See Detail 08/09/20 08:08: POC Glucose 167 H 08/09/20 12:01: POC Glucose 105 08/09/20 16:00: POC Glucose 119 H 08/09/20 22:53: POC Glucose 128 H 08/10/20 06:00: Random Vancomycin 5.2 08/10/20 06:00: WBC 12.3 H, RBC 3.48 L, Hgb 9.4 L, Hct 32.6 L, MCV 93.7, MCH 27.0, MCHC 28.8 L, RDW Std Deviation 55.8 H, RDW Coeff of Krista 16.2 H, Plt Count 369, MPV 10.4 08/10/20 06:00: Sodium Cancelled, Potassium Cancelled, Chloride Cancelled, Carbon Dioxide Cancelled, Anion Gap Cancelled, BUN Cancelled, Creatinine Cancelled, Estim Creat Clear Calc Cancelled, Est GFR (MDRD) Af Amer Cancelled, Est GFR (MDRD) Non-Af Cancelled, BUN/Creatinine Ratio Cancelled, Glucose Cancelled, Calcium Cancelled 08/10/20 08:00: Sodium Pending, Potassium Pending, Chloride Pending, Carbon Dioxide Pending, Anion Gap Pending, BUN Pending, Creatinine Pending, Est GFR (MDRD) Af Amer Pending, Est GFR (MDRD) Non-Af Pending, BUN/Creatinine Ratio Pending, Glucose Pending, Calcium Pending Current Medications Acetaminophen (Acetaminophen 325 Mg Tablet) 650 mg PO Q6H PRN PRN PRN Reason: Pain Score 1-10/Temp > 100.7 F Last Admin: 08/07/20 18:57 Dose: 650 mg Documented by: Albuterol Sulfate (Albuterol 2.5 Mg/3 Ml Vial.Neb.) 2.5 mg INHALATION Q2H PRN PRN PRN Reason: Dyspnea, wheezing Albuterol/Ipratropium (Ipratropium/Albuterol Sulfate 3 Ml Ampul.Neb) 3 ml INHALATION Q6HWA.RT [facility] Last Admin: 08/09/20 18:58 Dose: 3 ml Documented by: Ascorbic Acid (Ascorbic Acid 500 Mg Tablet) 500 mg PO DAILY [facility] Last Admin: 08/09/20 08:19 Dose: 500 mg Documented by: Docusate Sodium (Docusate Sodium 100 Mg Capsule) 100 mg PO BID PRN PRN PRN Reason: Constipation Last Admin: 08/06/20 14:34 Dose: 100 mg Documented by: Doxazosin Mesylate (Doxazosin 1 Mg Tablet) 2 mg PO QHS [facility] Last Admin: 08/09/20 22:56 Dose: 2 mg Documented by: Duloxetine HCl (Duloxetine Hcl 30 Mg Capsule) 30 mg PO BID [facility] Last Admin: 08/09/20 22:56 Dose: 30 mg Documented by: Enoxaparin Sodium (Enoxaparin 40 Mg/0.4 Ml Syringe) 40 mg SC DAILY@0600 [facility] Last Admin: 08/10/20 06:11 Dose: 40 mg Documented by: Ergocalciferol (Ergocalciferol 50,000 Unit Capsule) 50,000 unit PO Fr@1000 [facility] Last Admin: 08/08/20 14:00 Dose: Not Given Documented by: Furosemide (Furosemide 40 Mg Tablet) 40 mg PO DAILY [facility] Last Admin: 08/09/20 08:19 Dose: 40 mg Documented by: Piperacillin Sod/Tazobactam (Sod 3.375 gm/ Sodium Chloride) 50 mls @ 12.5 mls/hr IV Q8 [facility] Last Admin: 08/10/20 06:11 Dose: 12.5 mls/hr Documented by: Dextrose/Sodium Chloride (Dextrose 5%/0.9% Nacl) 1,000 mls @ 75 mls/hr IV .[id number] [facility] Last Admin: 08/10/20 03:30 Dose: 75 mls/hr Documented by: Sodium Chloride () 250 mls @ 15 mls/hr IV .[id number] PRN PRN Reason: Saline Flush Last Infusion: 08/09/20 05:10 Dose: 0 mls/hr Documented by: Insulin Glargine (Insulin Glargine 100 Units/Ml Pen) 25 units SC 1100,2200 [facility] Last Admin: 08/09/20 22:57 Dose: Not Given Documented by: Insulin Human Lispro (Insulin Lispro 100 Unit/Ml Insuln.Pen) 0 unit SC ACHS [facility]; Protocol Last Admin: 08/10/20 08:09 Dose: 1 units Documented by: Insulin Human Lispro (Insulin Lispro 100 Unit/Ml Insuln.Pen) 15 unit SC 0800,1200,1700 [facility] Last Admin: 08/10/20 08:10 Dose: 15 units Documented by: L-Arginine/L-Glutamine/Calcium HMB (Valentin (Unflavored) Packet) [facility] Last Admin: 08/09/20 17:06 Dose: 1 packet Documented by: Levetiracetam (Levetiracetam 500 Mg Tablet) 500 mg PO BID [facility] Last Admin: 08/09/20 22:57 Dose: 500 mg Documented by: Morphine Sulfate (Morphine 2 Mg/Ml Syringe) 2 mg IV Q3H PRN PRN PRN Reason: Pain Score 6-10 Last Admin: 08/10/20 08:05 Dose: 2 mg Documented by: Ondansetron HCl (Ondansetron 4 Mg/2 Ml Vial) 4 mg IV Q8H PRN PRN PRN Reason: NAUSEA/VOMITING Last Admin: 08/08/20 01:44 Dose: 4 mg Documented by: Oxycodone HCl (Oxycodone 5 Mg Tablet) 5 mg PO Q4H PRN PRN PRN Reason: Pain Score 4-5 Last Admin: 08/10/20 03:30 Dose: 5 mg Documented by: Oxycodone HCl (Oxycodone 5 Mg Tablet) 10 mg PO Q4H PRN PRN PRN Reason: Pain Score 6-10 Pregabalin (Pregabalin 50 Mg Capsule) 200 mg PO BID [facility] Last Admin: 08/09/20 23:05 Dose: 200 mg Documented by: Risperidone (Risperidone 0.25 Mg Tablet) 0.25 mg PO BID [facility] Last Admin: 08/09/20 22:55 Dose: 0.25 mg Documented by: Sodium Chloride (0.9% Saline Lock 10 Ml Syringe) 10 - 40 ml IV UD PRN PRN Reason: SALINE FLUSH Last Admin: 08/10/20 08:05 Dose: 10 ml Documented by: Tolterodine Tartrate (Tolterodine Tartrate 2 Mg Cap.Sa) 2 mg PO DAILY [facility] Last Admin: 08/09/20 08:19 Dose: 2 mg Documented by: Medical Necessity - Tobacco Use Smoking Status: Current every day smoker Tobacco Use: Cigarettes Assessment/Plan All Active Problems (Last Reviewed 08/04/20 @ 21:07 by Zuleyka Donald, [employer]ESS[employer]-C) Acute electrocardiogram changes (Acute) Hypoxia (Acute) Fracture tibia/fibula (Acute) Open left ankle fracture (Acute) Displaced bimalleolar fracture of left lower leg, subsequent encounter for closed fracture with delayed healing (Acute) Hyperglycemia (Acute) Dehydration (Acute) Leukocytosis (Acute) Altered level of consciousness (Acute) Hyperglycemia due to type 2 diabetes mellitus (Acute) Hypoxemia (Acute) MICHELE (acute kidney injury) (Acute) HHNC (hyperglycemic hyperosmolar nonketotic coma) (Acute) POD #2 left ankle arthrodesis with external fixation application with application of biologics (bone marrow aspirate harvested from proximal tibia and amniofill) and achilles tenotomy 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 She is afebrile and vital signs are stable. Labs reviewed with WBC 12.3. Hemoglobin stabilized; blood transfusion yesterday provided. Dressing changed today with betadine gauze to incision and pin/wire sites, abdominal pads, kerlix fluffs, and overlying jarett wrap. Protective foot bars added to frame today and all nuts and bolts were checked for tightness. Treated for osteo with extended bone exposure from wound; under infectious disease management. Continues on Zosyn. Bone biopsy microbiology results demonstrate staph epidermidis and corynebacterium so far. Bone biopsy pathology results negative for osteomyelitis with chronic inflammatory changes. Blood cultures negative so far. Cr 1.57 today. During her ankle arthrodesis, there was no purulence, necrosis or devitalized tissue noted. A1C recently improved to 8% and tobacco cessation while at facility. Her Vitamin D was 40; on weekly supplementation. Nutritional supplementation ordered to optimize healing. Strict nonweightbearing to left lower extremity. Continue to work with PT/OT. Medical management and DVT prophylaxis per hospitalist service appreciated. Enoxoparin restarted. To continue incentive spirometer use while awake. Discharge planning includes antibiotics and SNF placement for rehabilitation. [facility] after discharge in one week. Ok to discharge from a podiatry standpoint tomorrow if continued medical stability is noted and antibiotic plan finalized. Please do not hesitate to call if you have any questions. Reviewed with nurse practitioner, Lashaun. Seen bedside with Dr. Doyle. Vicki Allred DPM, FACFAS [facility] [phone]
[2020-08-10 08:16] LABS: Bedside Glucose 179 mg/dL (70-110)
[2020-08-10 09:00] LABS: Anion Gap 2 (5-15); BUN 32 mg/dL (7-18); BUN/Creat Ratio 20.4 RATIO (10-20); Calcium,Total 8.8 mg/dL (8.5-10.1); Chloride 114 mmol/L (98-107); Creatinine, Serum 1.57 mg/dL (0.55-1.02); EST Glomerular Filtration Rate 37 mL/min (>60); Est Glom Filt Rate - Afr Amer 45 mL/min (>60); Estimated Creatinine Clearance 37.72 ml/min; Glucose 201 mg/dL (74-106); Potassium 5.4 mmol/L (3.5-5.1); Sodium Level 143 mmol/L (136-145)
[2020-08-10] MEDS: Juven (unflavored) Packet 1 PACKET PO (09:48)
[2020-08-10] MEDS: Furosemide 40 MG Tablet PO (09:48)
[2020-08-10] MEDS: DULoxetine Hcl 30 MG Capsule PO ×2 (09:48→22:09)
[2020-08-10] MEDS: levETIRAcetam 500 MG Tablet PO ×2 (09:48→22:09)
[2020-08-10] MEDS: Tolterodine Tartrate 2 MG CAP.SA PO (09:48)
[2020-08-10] MEDS: Ascorbic Acid 500 MG Tablet PO (09:48)
[2020-08-10] MEDS: Pregabalin 50 MG Capsule 200 MG PO ×2 (09:48→22:14)
[2020-08-10] MEDS: RisperiDONE 0.25 MG Tablet PO ×2 (09:48→22:09)
[2020-08-10 12:10] LABS: Bedside Glucose 132 mg/dL (70-110)
--- NOTE | 2020-08-10 12:39 | PCM.PROGNOTE ---
<Lashaun Xiong NETWORK DESIGN ARCHITECT - Last Filed: 08/10/20 12:44> Patient Problems: Active and Suspected Problems (Last Reviewed 08/04/20 @ 21:07 by Zuleyka Donald NP-C) Hypoxia (Acute) secondary to COPD with altered mental status Fracture tibia/fibula (Acute) left-recent (06/21/20) Open left ankle fracture (Acute) Leukocytosis (Acute) Subjective: Patient seen and examined. Podiatry at bedside adjusting protective foot bars and dressing changed. Patient was premedicated and is drowsy during assessment. Resting comfortably. - Physical Exam Vitals/I&O's: Vital Signs Temp Pulse Resp BP Pulse Ox 98.3 F 104 H 18 149/78 H 90 08/10/20 09:37 08/10/20 09:40 08/10/20 09:37 08/10/20 09:37 08/10/20 11:26 Oxygen Flow Rate (L/min) 4 Oxygen Delivery Method Nasal Cannula Weight: 190 lb 11.198 oz Body Mass Index (BMI) 31.4 Finger Stick Blood Glucose 209 Intake and Output for Last 24 Hours 08/08/20 08/09/20 08/10/20 23:59 23:59 23:59 Intake Total 2033.25 / 2033.25 3778.75 / 3778.75 340 / 340 Output Total 300 / 300 2450 / 2450 Balance 1733.25 / 1733.25 1328.75 / 1328.75 340 / 340 General: Alert, Oriented x3, Cooperative HEENT: Atraumatic, PERRLA, EOMI, Normocephalic Neck: Supple, No JVD, Negative Carotid Bruits Lungs: Clear to auscultation, Normal air movement Cardiovascular: Regular rate, No murmurs Abdomen: Bowel Sounds Present, Soft, Non Tender, Non-Distended, Obese Extremities: No clubbing, No cyanosis, No edema, Capillary Refill Less than 3 Seconds Skin: - - Left foot dressing intact Musculoskeletal: No Tenderness to Palpation of Joints or Extremities Neurological: Cranial nerves II-XII grossly intact, Neuro grossly intact Psych/Mental Status: Normal Affect, Appropriate Microbiology Past 72 Hours 08/04/20 17:55 Blood Culture (Wb) - Anticubital Left Blood Culture - Final No growth in 5 days. 08/04/20 17:50 Blood Culture (Wb) - Anticubital Right Blood Culture - Final No growth in 5 days. 08/05/20 Unknown Bone - Other Gram Stain - Final 08/05/20 Unknown Bone - Other Wound Culture - Preliminary Staphylococcus epidermidis Corynebacterium striatum 08/05/20 Unknown Bone - Other Anaerobic Culture - Final No anaerobic bacteria isolated. 08/05/20 Unknown Wound Abcess - Aerobic & Anaerobic Swabs Gram Stain - Final 08/05/20 Unknown Wound Abcess - Aerobic & Anaerobic Swabs Wound Culture - Final No growth aerobically. 08/05/20 Unknown Wound Abcess - Aerobic & Anaerobic Swabs Anaerobic Culture - Final No anaerobic bacteria isolated. 08/04/20 18:00 Wound - Left Foot Anaerobic Culture - Final No anaerobic bacteria isolated. Laboratory Results 08/07/20 16:31: Crossmatch See Detail 08/09/20 16:00: POC Glucose 119 H 08/09/20 22:53: POC Glucose 128 H 08/10/20 06:00: Random Vancomycin 5.2 08/10/20 06:00: WBC 12.3 H, RBC 3.48 L, Hgb 9.4 L, Hct 32.6 L, MCV 93.7, MCH 27.0, MCHC 28.8 L, RDW Std Deviation 55.8 H, RDW Coeff of Krista 16.2 H, Plt Count 369, MPV 10.4 08/10/20 06:00: Sodium Cancelled, Potassium Cancelled, Chloride Cancelled, Carbon Dioxide Cancelled, Anion Gap Cancelled, BUN Cancelled, Creatinine Cancelled, Estim Creat Clear Calc Cancelled, Est GFR (MDRD) Af Amer Cancelled, Est GFR (MDRD) Non-Af Cancelled, BUN/Creatinine Ratio Cancelled, Glucose Cancelled, Calcium Cancelled 08/10/20 08:00: Sodium 143, Potassium 5.4 H, Chloride 114 H, Carbon Dioxide 27.0, Anion Gap 2 L, BUN 32 H, Creatinine 1.57 H, Estim Creat Clear Calc 37.72, Est GFR (MDRD) Af Amer 45 L, Est GFR (MDRD) Non-Af 37 L, BUN/Creatinine Ratio 20.4 H, Glucose 201 H, Calcium 8.8 08/10/20 08:08: POC Glucose 179 H 08/10/20 11:46: POC Glucose 132 H Current Medications Acetaminophen (Acetaminophen 325 Mg Tablet) 650 mg PO Q6H PRN PRN PRN Reason: Pain Score 1-10/Temp > 100.7 F Last Admin: 08/07/20 18:57 Dose: 650 mg Documented by: Albuterol Sulfate (Albuterol 2.5 Mg/3 Ml Vial.Neb.) 2.5 mg INHALATION Q2H PRN PRN PRN Reason: Dyspnea, wheezing Albuterol/Ipratropium (Ipratropium/Albuterol Sulfate 3 Ml Ampul.Neb) 3 ml INHALATION Q6HWA.RT [facility] Last Admin: 08/09/20 18:58 Dose: 3 ml Documented by: Ascorbic Acid (Ascorbic Acid 500 Mg Tablet) 500 mg PO DAILY [facility] Last Admin: 08/10/20 09:48 Dose: 500 mg Documented by: Docusate Sodium (Docusate Sodium 100 Mg Capsule) 100 mg PO BID PRN PRN PRN Reason: Constipation Last Admin: 08/06/20 14:34 Dose: 100 mg Documented by: Doxazosin Mesylate (Doxazosin 1 Mg Tablet) 2 mg PO QHS [facility] Last Admin: 08/09/20 22:56 Dose: 2 mg Documented by: Duloxetine HCl (Duloxetine Hcl 30 Mg Capsule) 30 mg PO BID [facility] Last Admin: 08/10/20 09:48 Dose: 30 mg Documented by: Enoxaparin Sodium (Enoxaparin 40 Mg/0.4 Ml Syringe) 40 mg SC DAILY@0600 [facility] Last Admin: 08/10/20 06:11 Dose: 40 mg Documented by: Ergocalciferol (Ergocalciferol 50,000 Unit Capsule) 50,000 unit PO Fr@1000 [facility] Last Admin: 08/08/20 14:00 Dose: Not Given Documented by: Furosemide (Furosemide 40 Mg Tablet) 40 mg PO DAILY [facility] Last Admin: 08/10/20 09:48 Dose: 40 mg Documented by: Piperacillin Sod/Tazobactam (Sod 3.375 gm/ Sodium Chloride) 50 mls @ 12.5 mls/hr IV Q8 [facility] Last Infusion: 08/10/20 10:11 Dose: Infused Documented by: Dextrose/Sodium Chloride (Dextrose 5%/0.9% Nacl) 1,000 mls @ 75 mls/hr IV .[id number] [facility] Last Admin: 08/10/20 03:30 Dose: 75 mls/hr Documented by: Sodium Chloride () 250 mls @ 15 mls/hr IV .[id number] PRN PRN Reason: Saline Flush Last Infusion: 08/10/20 10:11 Dose: 15 mls/hr Documented by: Insulin Glargine (Insulin Glargine 100 Units/Ml Pen) 25 units SC 1100,2200 [facility] Last Admin: 08/10/20 11:50 Dose: 25 u Documented by: Insulin Human Lispro (Insulin Lispro 100 Unit/Ml Insuln.Pen) 0 unit SC ACHS [facility]; Protocol Last Admin: 08/10/20 11:49 Dose: Not Given Documented by: Insulin Human Lispro (Insulin Lispro 100 Unit/Ml Insuln.Pen) 15 unit SC 0800,1200,1700 [facility] Last Admin: 08/10/20 11:51 Dose: 15 units Documented by: L-Arginine/L-Glutamine/Calcium HMB ([facility] (Unflavored) Packet) [facility] Last Admin: 08/10/20 09:48 Dose: 1 packet Documented by: Levetiracetam (Levetiracetam 500 Mg Tablet) 500 mg PO BID [facility] Last Admin: 08/10/20 09:48 Dose: 500 mg Documented by: Morphine Sulfate (Morphine 2 Mg/Ml Syringe) 2 mg IV Q3H PRN PRN PRN Reason: Pain Score 6-10 Last Admin: 08/10/20 08:05 Dose: 2 mg Documented by: Ondansetron HCl (Ondansetron 4 Mg/2 Ml Vial) 4 mg IV Q8H PRN PRN PRN Reason: NAUSEA/VOMITING Last Admin: 08/08/20 01:44 Dose: 4 mg Documented by: Oxycodone HCl (Oxycodone 5 Mg Tablet) 5 mg PO Q4H PRN PRN PRN Reason: Pain Score 4-5 Last Admin: 08/10/20 11:55 Dose: 5 mg Documented by: Oxycodone HCl (Oxycodone 5 Mg Tablet) 10 mg PO Q4H PRN PRN PRN Reason: Pain Score 6-10 Pregabalin (Pregabalin 50 Mg Capsule) 200 mg PO BID [facility] Last Admin: 08/10/20 09:48 Dose: 200 mg Documented by: Risperidone (Risperidone 0.25 Mg Tablet) 0.25 mg PO BID [facility] Last Admin: 08/10/20 09:48 Dose: 0.25 mg Documented by: Sodium Chloride (0.9% Saline Lock 10 Ml Syringe) 10 - 40 ml IV UD PRN PRN Reason: SALINE FLUSH Last Admin: 08/10/20 08:05 Dose: 10 ml Documented by: Tolterodine Tartrate (Tolterodine Tartrate 2 Mg Cap.Sa) 2 mg PO DAILY [facility] Last Admin: 08/10/20 09:48 Dose: 2 mg Documented by: Medical Necessity - Tobacco Use Smoking Status: Current every day smoker Tobacco Use: Cigarettes Assessment/Plan All Active Problems (Last Reviewed 08/04/20 @ 21:07 by Zuleyka Donald NP-C) Acute electrocardiogram changes (Acute) Hypoxia (Acute) Fracture tibia/fibula (Acute) Open left ankle fracture (Acute) Displaced bimalleolar fracture of left lower leg, subsequent encounter for closed fracture with delayed healing (Acute) Hyperglycemia (Acute) Dehydration (Acute) Leukocytosis (Acute) Altered level of consciousness (Acute) Hyperglycemia due to type 2 diabetes mellitus (Acute) Hypoxemia (Acute) MICHELE (acute kidney injury) (Acute) HHNC (hyperglycemic hyperosmolar nonketotic coma) (Acute) 1. Left ankle wound with osteomyelitis due to chronic open left ankle fracture-status post wound debridement, bone biopsy and temporary reduction. OR 08/08/2020 for placement of external fixation, staged stability. Management per podiatry. ID following. Continue Zosyn. Follow cultures, preliminary growing staph and Corynebacterium. As needed pain regimen. PT/OT. Plan for return to SNF tomorrow following ID recommendations and final cultures. 2. Type 2 diabetes [id number]-[id number] with sliding scale insulin. Continue home Lantus regimen. 3. Chronic hypoxia secondary to chronic COPD, suspect underlying NORRIS as well-continue supplement oxygen to maintain O2 at or above 90%. IS. Albuterol DuoNeb aerosols. 4. History of grand mal seizures-on Keppra. 5. Schizophrenia/anxiety/depression-on Cymbalta, risperidone. 6. Vitamin D deficiency-continue replacement. 7. Acute blood loss anemia, expected outcome related to #1- receive 2 units PRBC. Hemoglobin now stable. 8. Chronic kidney disease stage IIIb-at baseline, trend BMP. DVT prophylaxis- Lovenox sc Discharge planning: Return to [facility] when medically stable. This patient was seen by CHARLY Montalvo under the supervision of Dr. Denise. <David Denise F - Last Filed: 08/10/20 14:16> - Physical Exam Vitals/I&O's: Vital Signs Temp Pulse Resp BP Pulse Ox 98.3 F 104 H 18 149/78 H 90 08/10/20 09:37 08/10/20 09:40 08/10/20 09:37 08/10/20 09:37 08/10/20 11:26 Oxygen Flow Rate (L/min) 4 Oxygen Delivery Method Nasal Cannula Weight: 190 lb 11.198 oz Body Mass Index (BMI) 31.4 Finger Stick Blood Glucose 209 Intake and Output for Last 24 Hours 08/08/20 08/09/20 08/10/20 23:59 23:59 23:59 Intake Total 2033.25 / 2033.25 3778.75 / 3778.75 488.75 / 488.75 Output Total 300 / 300 2450 / 2450 Balance 1733.25 / 1733.25 1328.75 / 1328.75 488.75 / 488.75 Microbiology Past 72 Hours 08/04/20 17:55 Blood Culture (Wb) - Anticubital Left Blood Culture - Final No growth in 5 days. 08/04/20 17:50 Blood Culture (Wb) - Anticubital Right Blood Culture - Final No growth in 5 days. 08/05/20 Unknown Bone - Other Gram Stain - Final 08/05/20 Unknown Bone - Other Wound Culture - Preliminary Staphylococcus epidermidis Corynebacterium striatum 08/05/20 Unknown Bone - Other Anaerobic Culture - Final No anaerobic bacteria isolated. 08/05/20 Unknown Wound Abcess - Aerobic & Anaerobic Swabs Gram Stain - Final 08/05/20 Unknown Wound Abcess - Aerobic & Anaerobic Swabs Wound Culture - Final No growth aerobically. 08/05/20 Unknown Wound Abcess - Aerobic & Anaerobic Swabs Anaerobic Culture - Final No anaerobic bacteria isolated. 08/04/20 18:00 Wound - Left Foot Anaerobic Culture - Final No anaerobic bacteria isolated. Laboratory Results 08/07/20 16:31: Crossmatch See Detail 08/09/20 16:00: POC Glucose 119 H 08/09/20 22:53: POC Glucose 128 H 08/10/20 06:00: Random Vancomycin 5.2 08/10/20 06:00: WBC 12.3 H, RBC 3.48 L, Hgb 9.4 L, Hct 32.6 L, MCV 93.7, MCH 27.0, MCHC 28.8 L, RDW Std Deviation 55.8 H, RDW Coeff of Krista 16.2 H, Plt Count 369, MPV 10.4 08/10/20 06:00: Sodium Cancelled, Potassium Cancelled, Chloride Cancelled, Carbon Dioxide Cancelled, Anion Gap Cancelled, BUN Cancelled, Creatinine Cancelled, Estim Creat Clear Calc Cancelled, Est GFR (MDRD) Af Amer Cancelled, Est GFR (MDRD) Non-Af Cancelled, BUN/Creatinine Ratio Cancelled, Glucose Cancelled, Calcium Cancelled 08/10/20 08:00: Sodium 143, Potassium 5.4 H, Chloride 114 H, Carbon Dioxide 27.0, Anion Gap 2 L, BUN 32 H, Creatinine 1.57 H, Estim Creat Clear Calc 37.72, Est GFR (MDRD) Af Amer 45 L, Est GFR (MDRD) Non-Af 37 L, BUN/Creatinine Ratio 20.4 H, Glucose 201 H, Calcium 8.8 08/10/20 08:08: POC Glucose 179 H 08/10/20 11:46: POC Glucose 132 H Current Medications Acetaminophen (Acetaminophen 325 Mg Tablet) 650 mg PO Q6H PRN PRN PRN Reason: Pain Score 1-10/Temp > 100.7 F Last Admin: 08/07/20 18:57 Dose: 650 mg Documented by: Albuterol Sulfate (Albuterol 2.5 Mg/3 Ml Vial.Neb.) 2.5 mg INHALATION Q2H PRN PRN PRN Reason: Dyspnea, wheezing Albuterol/Ipratropium (Ipratropium/Albuterol Sulfate 3 Ml Ampul.Neb) 3 ml INHALATION Q6HWA.RT [facility] Last Admin: 08/09/20 18:58 Dose: 3 ml Documented by: Ascorbic Acid (Ascorbic Acid 500 Mg Tablet) 500 mg PO DAILY [facility] Last Admin: 08/10/20 09:48 Dose: 500 mg Documented by: Docusate Sodium (Docusate Sodium 100 Mg Capsule) 100 mg PO BID PRN PRN PRN Reason: Constipation Last Admin: 08/06/20 14:34 Dose: 100 mg Documented by: Doxazosin Mesylate (Doxazosin 1 Mg Tablet) 2 mg PO QHS [facility] Last Admin: 08/09/20 22:56 Dose: 2 mg Documented by: Duloxetine HCl (Duloxetine Hcl 30 Mg Capsule) 30 mg PO BID [facility] Last Admin: 08/10/20 09:48 Dose: 30 mg Documented by: Enoxaparin Sodium (Enoxaparin 40 Mg/0.4 Ml Syringe) 40 mg SC DAILY@0600 [facility] Last Admin: 08/10/20 06:11 Dose: 40 mg Documented by: Ergocalciferol (Ergocalciferol 50,000 Unit Capsule) 50,000 unit PO Fr@1000 [facility] Last Admin: 08/08/20 14:00 Dose: Not Given Documented by: Furosemide (Furosemide 40 Mg Tablet) 40 mg PO DAILY [facility] Last Admin: 08/10/20 09:48 Dose: 40 mg Documented by: Piperacillin Sod/Tazobactam (Sod 3.375 gm/ Sodium Chloride) 50 mls @ 12.5 mls/hr IV Q8 [facility] Last Admin: 08/10/20 13:26 Dose: 12.5 mls/hr Documented by: Dextrose/Sodium Chloride (Dextrose 5%/0.9% Nacl) 1,000 mls @ 75 mls/hr IV .[id number] [facility] Last Admin: 08/10/20 03:30 Dose: 75 mls/hr Documented by: Sodium Chloride () 250 mls @ 15 mls/hr IV .[id number] PRN PRN Reason: Saline Flush Last Infusion: 08/10/20 13:26 Dose: 0 mls/hr Documented by: Insulin Glargine (Insulin Glargine 100 Units/Ml Pen) 25 units SC 1100,2200 [facility] Last Admin: 08/10/20 11:50 Dose: 25 u Documented by: Insulin Human Lispro (Insulin Lispro 100 Unit/Ml Insuln.Pen) 0 unit SC ACHS [facility]; Protocol Last Admin: 08/10/20 11:49 Dose: Not Given Documented by: Insulin Human Lispro (Insulin Lispro 100 Unit/Ml Insuln.Pen) 15 unit SC 0800,1200,1700 [facility] Last Admin: 08/10/20 11:51 Dose: 15 units Documented by: L-Arginine/L-Glutamine/Calcium HMB (Valentin (Unflavored) Packet) [facility] Last Admin: 08/10/20 09:48 Dose: 1 packet Documented by: Levetiracetam (Levetiracetam 500 Mg Tablet) 500 mg PO BID [facility] Last Admin: 08/10/20 09:48 Dose: 500 mg Documented by: Morphine Sulfate (Morphine 2 Mg/Ml Syringe) 2 mg IV Q3H PRN PRN PRN Reason: Pain Score 6-10 Last Admin: 08/10/20 08:05 Dose: 2 mg Documented by: Ondansetron HCl (Ondansetron 4 Mg/2 Ml Vial) 4 mg IV Q8H PRN PRN PRN Reason: NAUSEA/VOMITING Last Admin: 08/08/20 01:44 Dose: 4 mg Documented by: Oxycodone HCl (Oxycodone 5 Mg Tablet) 5 mg PO Q4H PRN PRN PRN Reason: Pain Score 4-5 Last Admin: 08/10/20 11:55 Dose: 5 mg Documented by: Oxycodone HCl (Oxycodone 5 Mg Tablet) 10 mg PO Q4H PRN PRN PRN Reason: Pain Score 6-10 Pregabalin (Pregabalin 50 Mg Capsule) 200 mg PO BID [facility] Last Admin: 08/10/20 09:48 Dose: 200 mg Documented by: Risperidone (Risperidone 0.25 Mg Tablet) 0.25 mg PO BID [facility] Last Admin: 08/10/20 09:48 Dose: 0.25 mg Documented by: Sodium Chloride (0.9% Saline Lock 10 Ml Syringe) 10 - 40 ml IV UD PRN PRN Reason: SALINE FLUSH Last Admin: 08/10/20 08:05 Dose: 10 ml Documented by: Tolterodine Tartrate (Tolterodine Tartrate 2 Mg Cap.Sa) 2 mg PO DAILY [facility] Last Admin: 08/10/20 09:48 Dose: 2 mg Documented by:
[2020-08-10 17:06] LABS: Bedside Glucose 41 mg/dL (70-110)
[2020-08-10 17:06] LABS: Bedside Glucose 41 mg/dL (70-110)
[2020-08-10] MEDS: Dextrose 50%-Water 25 GM/50 ML DISP.SYRIN IV (17:12)
[2020-08-10 17:56] LABS: Bedside Glucose 123 mg/dL (70-110)
[2020-08-10] MEDS: Ipratropium/Albuterol Sulfate 3 ML AMPUL.NEB INHALATION (18:45)
[2020-08-10] MEDS: Doxazosin 1 MG Tablet 2 MG PO (22:10)
[2020-08-10] MEDS: Docusate Sodium 100 MG Capsule PO (22:14)
[2020-08-10] MEDS: Acetaminophen 325 MG Tablet 650 MG PO (22:15)
[2020-08-10 22:16] LABS: Bedside Glucose 131 mg/dL (70-110)
[2020-08-11] VITALS (9 sets, daily range): BP systolic 152–169; BP diastolic 65–101; PULSE 80–98; RESP 16–18; TEMP 36.3–37.1; O2SAT 93–95
[2020-08-11] MEDS: oxyCODONE 5 MG Tablet PO (01:17)
[2020-08-11] MEDS: Ipratropium/Albuterol Sulfate 3 ML AMPUL.NEB INHALATION ×2 (01:27→07:18)
[2020-08-11] MEDS: Enoxaparin 40 MG/0.4 ML Syringe SC (05:48)
[2020-08-11] MEDS: Dextrose 5%/0.9% NaCl 1,000 ML 75 ML IV (05:50)
[2020-08-11 05:56] LABS: Bedside Glucose 135 mg/dL (70-110)
[2020-08-11 06:33] LABS: Hemoglobin 8.6 g/dL (12.0-15.0); Mean Corp Hgb Conc 27.7 g/dL (32-36); Mean Corpuscular Hgb 26.5 pg (27.0-32.0); Mean Corpuscular Volume 95.4 fL (81-99); Mean Platelet Vol. 10.2 fl (6.2-12.0); Platelet Count 342 K/mm3 (150-450); RBC Distribution Width CV 16.2 % (11.6-14.6); RBC Distribution Width SD 57.7 fl (35.1-43.9); Red Blood Count 3.25 M/mm3 (4.2-5.4); White Blood Count 7.9 K/mm3 (4.4-11.0)
[2020-08-11 07:08] LABS: Anion Gap 2 (5-15); BUN 32 mg/dL (7-18); BUN/Creat Ratio 22.5 RATIO (10-20); Calcium,Total 8.8 mg/dL (8.5-10.1); Chloride 117 mmol/L (98-107); Creatinine, Serum 1.42 mg/dL (0.55-1.02); EST Glomerular Filtration Rate 41 mL/min (>60); Est Glom Filt Rate - Afr Amer 50 mL/min (>60); Glucose 130 mg/dL (74-106); Potassium 4.9 mmol/L (3.5-5.1); Sodium Level 146 mmol/L (136-145)
[2020-08-11] MEDS: Juven (unflavored) Packet 1 PACKET PO (08:04)
[2020-08-11] MEDS: Insulin Lispro 100 UNIT/ML INSULN.PEN 15 UNIT SC (08:04)
--- NOTE | 2020-08-11 09:19 | CASEMGMT ---
Social Work Note SW faxed updated clinicals to [facility]. Celeste Walton QA TESTER, CLINICAL REHABILITATION AIDE
[2020-08-11] MEDS: oxyCODONE 5 MG Tablet 10 MG PO ×2 (09:33→14:40)
--- NOTE | 2020-08-11 09:49 | NURSING ---
Dr Sadler in to talk with patient. dressing left D&I to the left ankle. external fixator in place. patient medicated with OxyIR as requested. patient denies further needs at this time.
--- NOTE | 2020-08-11 10:00 | PCM.PROGNOTE ---
Patient Problems: Active and Suspected Problems (Last Reviewed 08/04/20 @ 21:07 by Zuleyka Donald, PER DIEM PHYSICAL THERAPIST-C) Hypoxia (Acute) secondary to COPD with altered mental status Fracture tibia/fibula (Acute) left-recent (06/21/20) Open left ankle fracture (Acute) Leukocytosis (Acute) Subjective: Patient was seen this morning for follow up on left ankle, s/p ankle arthrodesis with external fixation placement. She is relating to some ankle pain, otherwise no other complaints. No fever, chills, nausea or vomiting. - Physical Exam Vitals/I&O's: Vital Signs Temp Pulse Resp BP Pulse Ox 97.6 F L 94 16 152/65 H 93 08/11/20 02:46 08/11/20 07:18 08/11/20 07:18 08/11/20 02:46 08/11/20 07:18 Oxygen Flow Rate (L/min) 4 Oxygen Delivery Method Nasal Cannula Weight: 86.5 kg Body Mass Index (BMI) 31.4 Finger Stick Blood Glucose 209 Intake and Output for Last 24 Hours 08/09/20 08/10/20 08/11/20 23:59 23:59 23:59 Intake Total 3778.75 / 3778.75 1980.50 / 1980.50 1272.5 / 1272.5 Output Total 2450 / 2450 550 / 550 1000 / 1000 Balance 1328.75 / 1328.75 1430.50 / 1430.50 272.5 / 272.5 General: Alert, Oriented x3, Cooperative, No apparent distress Extremities: Capillary Refill Less than 3 Seconds, - - Dressing left foot/ankle/leg is clean, dry and intact with no strikethrough or active bleeding noted. Psych/Mental Status: Appropriate Microbiology Past 72 Hours 08/04/20 17:55 Blood Culture (Wb) - Anticubital Left Blood Culture - Final No growth in 5 days. 08/04/20 17:50 Blood Culture (Wb) - Anticubital Right Blood Culture - Final No growth in 5 days. 08/05/20 Unknown Bone - Other Gram Stain - Final 08/05/20 Unknown Bone - Other Wound Culture - Preliminary Staphylococcus epidermidis Corynebacterium striatum 08/05/20 Unknown Bone - Other Anaerobic Culture - Final No anaerobic bacteria isolated. 08/05/20 Unknown Wound Abcess - Aerobic & Anaerobic Swabs Gram Stain - Final 08/05/20 Unknown Wound Abcess - Aerobic & Anaerobic Swabs Wound Culture - Final No growth aerobically. 08/05/20 Unknown Wound Abcess - Aerobic & Anaerobic Swabs Anaerobic Culture - Final No anaerobic bacteria isolated. 08/04/20 18:00 Wound - Left Foot Anaerobic Culture - Final No anaerobic bacteria isolated. Laboratory Results 08/10/20 11:46: POC Glucose 132 H 08/10/20 16:39: POC Glucose 41 L* 08/10/20 16:56: POC Glucose 41 L* 08/10/20 17:43: POC Glucose 123 H 08/10/20 22:06: POC Glucose 131 H 08/11/20 05:47: POC Glucose 135 H 08/11/20 06:02: WBC 7.9, RBC 3.25 L, Hgb 8.6 L, Hct 31.0 L, MCV 95.4, MCH 26.5 L, MCHC 27.7 L, RDW Std Deviation 57.7 H, RDW Coeff of Krista 16.2 H, Plt Count 342, MPV 10.2 08/11/20 06:02: Sodium 146 H, Potassium 4.9, Chloride 117 H, Carbon Dioxide 27.0, Anion Gap 2 L, BUN 32 H, Creatinine 1.42 H, Estim Creat Clear Calc 41.70, Est GFR (MDRD) Af Amer 50 L, Est GFR (MDRD) Non-Af 41 L, BUN/Creatinine Ratio 22.5 H, Glucose 130 H, Calcium 8.8 Current Medications Acetaminophen (Acetaminophen 325 Mg Tablet) 650 mg PO Q6H PRN PRN PRN Reason: Pain Score 1-10/Temp > 100.7 F Last Admin: 08/10/20 22:15 Dose: 650 mg Documented by: Albuterol Sulfate (Albuterol 2.5 Mg/3 Ml Vial.Neb.) 2.5 mg INHALATION Q2H PRN PRN PRN Reason: Dyspnea, wheezing Albuterol/Ipratropium (Ipratropium/Albuterol Sulfate 3 Ml Ampul.Neb) 3 ml INHALATION Q6HWA.RT [facility] Last Admin: 08/11/20 07:18 Dose: 3 ml Documented by: Ascorbic Acid (Ascorbic Acid 500 Mg Tablet) 500 mg PO DAILY [facility] Last Admin: 08/10/20 09:48 Dose: 500 mg Documented by: Docusate Sodium (Docusate Sodium 100 Mg Capsule) 100 mg PO BID PRN PRN PRN Reason: Constipation Last Admin: 08/10/20 22:14 Dose: 100 mg Documented by: Doxazosin Mesylate (Doxazosin 1 Mg Tablet) 2 mg PO QHS [facility] Last Admin: 08/10/20 22:10 Dose: 2 mg Documented by: Duloxetine HCl (Duloxetine Hcl 30 Mg Capsule) 30 mg PO BID [facility] Last Admin: 08/10/20 22:09 Dose: 30 mg Documented by: Enoxaparin Sodium (Enoxaparin 40 Mg/0.4 Ml Syringe) 40 mg SC DAILY@0600 [facility] Last Admin: 08/11/20 05:48 Dose: 40 mg Documented by: Ergocalciferol (Ergocalciferol 50,000 Unit Capsule) 50,000 unit PO Fr@1000 [facility] Last Admin: 08/08/20 14:00 Dose: Not Given Documented by: Furosemide (Furosemide 40 Mg Tablet) 40 mg PO DAILY [facility] Last Admin: 08/10/20 09:48 Dose: 40 mg Documented by: Piperacillin Sod/Tazobactam (Sod 3.375 gm/ Sodium Chloride) 50 mls @ 12.5 mls/hr IV Q8 [facility] Last Admin: 08/11/20 05:48 Dose: 12.5 mls/hr Documented by: Dextrose/Sodium Chloride (Dextrose 5%/0.9% Nacl) 1,000 mls @ 75 mls/hr IV .[id number] [facility] Last Admin: 08/11/20 05:50 Dose: 75 mls/hr Documented by: Sodium Chloride () 250 mls @ 15 mls/hr IV .[id number] PRN PRN Reason: Saline Flush Last Admin: 08/10/20 19:26 Dose: 15 mls/hr Documented by: Insulin Glargine (Insulin Glargine 100 Units/Ml Pen) 10 units SC 1100,2200 [facility] Insulin Human Lispro (Insulin Lispro 100 Unit/Ml Insuln.Pen) 0 unit SC ACHS [facility]; Protocol Last Admin: 08/11/20 05:48 Dose: Not Given Documented by: L-Arginine/L-Glutamine/Calcium HMB (Valentin (Unflavored) Packet) 1 packet PO BIDCM [facility] Last Admin: 08/11/20 08:04 Dose: 1 packet Documented by: Levetiracetam (Levetiracetam 500 Mg Tablet) 500 mg PO BID [facility] Last Admin: 08/10/20 22:09 Dose: 500 mg Documented by: Morphine Sulfate (Morphine 2 Mg/Ml Syringe) 2 mg IV Q3H PRN PRN PRN Reason: Pain Score 6-10 Last Admin: 08/10/20 08:05 Dose: 2 mg Documented by: Ondansetron HCl (Ondansetron 4 Mg/2 Ml Vial) 4 mg IV Q8H PRN PRN PRN Reason: NAUSEA/VOMITING Last Admin: 08/08/20 01:44 Dose: 4 mg Documented by: Oxycodone HCl (Oxycodone 5 Mg Tablet) 5 mg PO Q4H PRN PRN PRN Reason: Pain Score 4-5 Last Admin: 08/11/20 01:17 Dose: 5 mg Documented by: Oxycodone HCl (Oxycodone 5 Mg Tablet) 10 mg PO Q4H PRN PRN PRN Reason: Pain Score 6-10 Last Admin: 08/11/20 09:33 Dose: 10 mg Documented by: Pregabalin (Pregabalin 50 Mg Capsule) 200 mg PO BID [facility] Last Admin: 08/10/20 22:14 Dose: 200 mg Documented by: Risperidone (Risperidone 0.25 Mg Tablet) 0.25 mg PO BID [facility] Last Admin: 08/10/20 22:09 Dose: 0.25 mg Documented by: Sodium Chloride (0.9% Saline Lock 10 Ml Syringe) 10 - 40 ml IV UD PRN PRN Reason: SALINE FLUSH Last Admin: 08/10/20 08:05 Dose: 10 ml Documented by: Tolterodine Tartrate (Tolterodine Tartrate 2 Mg Cap.Sa) 2 mg PO DAILY [facility] Last Admin: 08/10/20 09:48 Dose: 2 mg Documented by: Medical Necessity - Tobacco Use Smoking Status: Current every day smoker Tobacco Use: Cigarettes Assessment/Plan All Active Problems (Last Reviewed 08/04/20 @ 21:07 by Zuleyka Donald NP-C) Acute electrocardiogram changes (Acute) Hypoxia (Acute) Fracture tibia/fibula (Acute) Open left ankle fracture (Acute) Displaced bimalleolar fracture of left lower leg, subsequent encounter for closed fracture with delayed healing (Acute) Hyperglycemia (Acute) Dehydration (Acute) Leukocytosis (Acute) Altered level of consciousness (Acute) Hyperglycemia due to type 2 diabetes mellitus (Acute) Hypoxemia (Acute) MICHELE (acute kidney injury) (Acute) HHNC (hyperglycemic hyperosmolar nonketotic coma) (Acute) Left ankle arthrodesis with external fixation application with application of biologics (bone marrow aspirate harvested from proximal tibia and amniofill) and achilles tenotomy secondary to chronic open ankle fracture dislocation - on 08/08/2020 Osteomyelitis with open bone and chronic ulcer Diabetes with neuropathy (A1c 8%) Tobacco use Vitamin D deficiency Other medical comorbidities: history of seizure disorder, schizophrenia, anxiety, depression, COPD Patient was seen and examined today. She is afebrile and vital signs are stable. WBC normal, patient afebrile. Hgb 8.6, blood transfusion completed on Tuesday. Dressing was left clean, dry an intact. Treated for osteo with extended bone exposure from wound; under infectious disease management. Continues on Zosyn. Bone biopsy microbiology results demonstrate staph epidermidis and corynebacterium. Bone biopsy pathology results negative for osteomyelitis with chronic inflammatory changes. Blood cultures negative. A1C recently improved to 8% and tobacco cessation while at facility. Her Vitamin D was 40; on weekly supplementation. Nutritional supplementation ordered to optimize healing. Strict nonweightbearing to left lower extremity. Continue to work with PT/OT. Medical management and DVT prophylaxis per hospitalist service appreciated. Enoxaparin restarted - from podiatry standpoint would recommend continued Enoxaparin for DVT prophylaxis. To continue incentive spirometer use while awake. Discharge planning includes antibiotics and SNF placement for rehabilitation. [facility] after discharge in one week. Ok to discharge from a podiatry standpoint if continued medical stability is noted and antibiotic plan finalized. I did provide a written Rx for oxycodone 5-10mg PO q 6 hours - this was placed in her chart.
[2020-08-11] MEDS: Pregabalin 50 MG Capsule 200 MG PO (10:29)
[2020-08-11] MEDS: Tolterodine Tartrate 2 MG CAP.SA PO (10:29)
[2020-08-11] MEDS: DULoxetine Hcl 30 MG Capsule PO (10:29)
[2020-08-11] MEDS: Ascorbic Acid 500 MG Tablet PO (10:29)
[2020-08-11] MEDS: RisperiDONE 0.25 MG Tablet PO (10:30)
[2020-08-11] MEDS: levETIRAcetam 500 MG Tablet PO (10:30)
[2020-08-11] MEDS: Furosemide 40 MG Tablet PO (10:30)
--- NOTE | 2020-08-11 11:24 | DCINST_ITS ---
Discharge Activity: May Not Drive, May Not Shower, Use Walker Weight Bearing Status: No weight bearing Keep extremity elevated above heart level: Left Leg Call your doctor if your incision/area has: Continuous Slow Oozing, Sudden Increased Bleeding, Increased Pain/ Swelling, Increased Redness, Foul Smelling Discharge, Swelling at the incision site Call your doctor if you observe: Fever of 101 or Higher, Numbness or Tingling, Calf discomfort, Uncontrolled pain Cleanse incision/area with: Do not get Incision Wet Additional Instructions: Continue antibiotics per infectious disease recommendations. Continue DVT prophylaxis medication. Continue smoking cessation. Continue Vitamin D supplementation. Continue Valentin supplementation. Allergies/Adverse Reactions: Allergies Sulfa (Sulfonamide Antibiotics) Allergy (Verified 08/04/20 17:07) Hives Medications to take at Discharge Oxybutynin Chloride [Ditropan Xl] 5 mg PO BID 06/10/17 Duloxetine Hcl [Cymbalta] 30 mg PO BID 10/24/19 Acetaminophen [Tylenol] 500 mg PO TID 06/23/20 Ascorbic Acid 500 mg PO DAILY 08/04/20 Docusate Sodium 100 mg PO BID 08/04/20 Ergocalciferol (Vitamin D2) [Vitamin D2] 50,000 unit PO FR 08/04/20 Furosemide [Lasix] 40 mg PO DAILY 08/04/20 Insulin Glargine,Hum.rec.anlog [Lantus] 22 unit SQ BID 08/04/20 Insulin Lispro Protamin/Lispro [Humalog Mix 50-50 Vial] 13 unit SQ TIDCM 08/04/20 Insulin Lispro [Humalog] See Protocol SQ TIDCM 08/04/20 Levetiracetam [Keppra] 500 mg PO BID 08/04/20 M-Vit,Tx,Iron,Mins/Calc/Folic [Thera-M Caplet] 1 tablet PO DAILY 08/04/20 Multivit,Stress Formula/Zinc [Stress Formula with Zinc Tab] 1 tablet PO BID 08/04/20 Oxycodone HCl 5 mg PO Q4H PRN PRN 08/04/20 Prazosin HCl 2 mg PO QHS 08/04/20 Pregabalin [Lyrica] 100 mg PO BID 08/04/20 Risperidone 0.25 mg PO BID 08/04/20 Oxycodone [Oxyir] 5 - 10 mg PO Q6H PRN PRN 3 Days #20 tab 08/11/20 The following prescriptions were given: Oxycodone [Oxyir] 5 - 10 mg PO Q6H PRN PRN 3 Days #20 tab PRN Reason: Pain Score 4-10 Prescription Printed Primary Care Physician: Júnior Lee MD [Primary Care Provider] - Test Results: Test results from this visit will be discussed in further detail at your follow- up appointment, if applicable. Please Follow Up With: Vicki Allred DPM When: [facility] 08/15/20 at 7:45 am. Call [phone] to confirm. Proposed Discharge Date: 08/11/20
[2020-08-11 11:46] LABS: Bedside Glucose 92 mg/dL (70-110)
--- NOTE | 2020-08-11 11:47 | TREXTCA.CO_ITS ---
- Diet 08/08/20 20:43 Diet: Consistent Carb - Calorie Controlled Type of Dietary Supplement:: Glucerna Shake Is pt able to select menu?: No How many daily calories?: 1800 candy - Routine Orders/Code Status Enema Type: Fleetz Enema Frequency: Daily PRN Suppository Type: Dulcolax 10mg Suppository Frequency: Daily PRN O2 Liters per Minute: 3-4 O2 Frequency: Continuous Keep PO Greater than or Equal to (%): 90 Routine Lab Work: - - Weekly CBC, BMP Code Status: Full Code - Wound(s) L foot Wound Type: Surgical Incision left medial ankle Wound Type: open fracture Dressing Change: Dry Sterile Dressing - Suggestions for Active Care Change Position every (hours): 2 Times a day to sit in chair: 3 - Therapies Weight Bearing: Non weight bearing Extremity Affected:: Left Lower Physical Therapy: Eval and Treat Occupational Therapy: Eval and Treat - Problem/Diagnosis (1) Schizophrenia Status: Chronic (2) Open left ankle fracture Status: Acute Comment: Left ankle wound with osteomyelitis due to chronic open left ankle fracture (3) COPD (chronic obstructive pulmonary disease) Status: Chronic (4) Osteomyelitis Status: Chronic (5) Type II diabetes mellitus Status: Chronic (6) Depression Status: Chronic (7) Anxiety Status: Chronic (8) Hypoxemia Status: Chronic - Allergies/Procedures Done in Hospital Allergies/Adverse Reactions: Allergies Sulfa (Sulfonamide Antibiotics) Allergy (Verified 08/04/20 17:07) Hives Procedures: - - 1. Bone marrow aspirate harvest and application, left lower extremity. 2. Tenotomy achilles, left. 3. Left dislocated ankle fracture re duction with ankle arthrodesis and fixation with use of external fixation (circular ring, hybrid). 4. Application of advanced wound healing product (amnio salina - Type of Care/Length of Stay Estimated LOS: Convalescent Care Less Than 30 days Type of Care Needed: Skilled Rehab Potential: Fair Prognosis: Fair - Additional Orders/Day of Discharge H&P will serve as current which was dated: 08/04/20 Day of Discharge: 08/11/20 - Dietary and Speech Recommendations Dietitian Recommendations/Changes: Will change diet to 2000 calorie/carbohydrate-controlled. Will limit glucerna shake to 120ml TID w/ meals--d/c as indicated. - Follow Up Care Primary Care Physician: Júnior Lee MD [Primary Care Provider] - Please follow up with your Primary Care Physician in: 1 Week Please Follow Up With: Vicki Allred DPM When: [facility] 08/15/20 at 7:45 am. Call [phone] to confirm. Please Follow Up With: Baltazar Rashid MD When: 2 Weeks
--- NOTE | 2020-08-11 12:37 | PN.ID_ITS ---
Patient Problems: Active and Suspected Problems (Last Reviewed 08/04/20 @ 21:07 by Zuleyka Donald SALES AND MARKETING ASSOCIATE-C) Hypoxia (Acute) secondary to COPD with altered mental status Fracture tibia/fibula (Acute) left-recent (06/21/20) Open left ankle fracture (Acute) Leukocytosis (Acute) Subjective: Feeling ok, leg sore, no fever, no n/v/d - Physical Exam Vitals/I&O's: Vital Signs Temp Pulse Resp BP Pulse Ox 97.3 F L 97 18 152/82 H 93 08/11/20 11:51 08/11/20 11:51 08/11/20 11:51 08/11/20 11:51 08/11/20 11:51 Oxygen Flow Rate (L/min) 3 Oxygen Delivery Method Nasal Cannula Weight: 86.5 kg Body Mass Index (BMI) 31.4 Finger Stick Blood Glucose 209 Intake and Output for Last 24 Hours 08/09/20 08/10/20 08/11/20 23:59 23:59 23:59 Intake Total 3778.75 / 3778.75 1980.50 / 1980.50 1322.5 / 1322.5 Output Total 2450 / 2450 550 / 550 1000 / 1000 Balance 1328.75 / 1328.75 1430.50 / 1430.50 322.5 / 322.5 General: Alert, Cooperative, No apparent distress Lungs: Clear to auscultation, Normal air movement Cardiovascular: Regular rate, Regular Rhythm Abdomen: Soft, Non Tender, Non-Distended Skin: Ulcer/ Wound - leg wrapped Microbiology Past 72 Hours 08/04/20 17:55 Blood Culture (Wb) - Anticubital Left Blood Culture - Final No growth in 5 days. 08/04/20 17:50 Blood Culture (Wb) - Anticubital Right Blood Culture - Final No growth in 5 days. 08/05/20 Unknown Bone - Other Gram Stain - Final 08/05/20 Unknown Bone - Other Wound Culture - Preliminary Staphylococcus epidermidis Corynebacterium striatum 08/05/20 Unknown Bone - Other Anaerobic Culture - Final No anaerobic bacteria isolated. 08/05/20 Unknown Wound Abcess - Aerobic & Anaerobic Swabs Gram Stain - Final 08/05/20 Unknown Wound Abcess - Aerobic & Anaerobic Swabs Wound Culture - Final No growth aerobically. 08/05/20 Unknown Wound Abcess - Aerobic & Anaerobic Swabs Anaerobic Culture - Final No anaerobic bacteria isolated. Laboratory Results 08/10/20 16:39: POC Glucose 41 L* 08/10/20 16:56: POC Glucose 41 L* 08/10/20 17:43: POC Glucose 123 H 08/10/20 22:06: POC Glucose 131 H 08/11/20 05:47: POC Glucose 135 H 08/11/20 06:02: WBC 7.9, RBC 3.25 L, Hgb 8.6 L, Hct 31.0 L, MCV 95.4, MCH 26.5 L , MCHC 27.7 L, RDW Std Deviation 57.7 H, RDW Coeff of Krista 16.2 H, Plt Count 342, MPV 10.2 08/11/20 06:02: Sodium 146 H, Potassium 4.9, Chloride 117 H, Carbon Dioxide 27.0, Anion Gap 2 L, BUN 32 H, Creatinine 1.42 H, Estim Creat Clear Calc 41.70, Est GFR (MDRD) Af Amer 50 L, Est GFR (MDRD) Non-Af 41 L, BUN/Creatinine Ratio 22.5 H, Glucose 130 H, Calcium 8.8 08/11/20 11:40: POC Glucose 92 Current Medications Acetaminophen (Acetaminophen 325 Mg Tablet) 650 mg PO Q6H PRN PRN PRN Reason: Pain Score 1-10/Temp > 100.7 F Last Admin: 08/10/20 22:15 Dose: 650 mg Documented by: Albuterol Sulfate (Albuterol 2.5 Mg/3 Ml Vial.Neb.) 2.5 mg INHALATION Q2H PRN PRN PRN Reason: Dyspnea, wheezing Albuterol/Ipratropium (Ipratropium/Albuterol Sulfate 3 Ml Ampul.Neb) 3 ml INHALATION Q6HWA.RT [facility] Last Admin: 08/11/20 07:18 Dose: 3 ml Documented by: Ascorbic Acid (Ascorbic Acid 500 Mg Tablet) 500 mg PO DAILY [facility] Last Admin: 08/11/20 10:29 Dose: 500 mg Documented by: Docusate Sodium (Docusate Sodium 100 Mg Capsule) 100 mg PO BID PRN PRN PRN Reason: Constipation Last Admin: 08/10/20 22:14 Dose: 100 mg Documented by: Doxazosin Mesylate (Doxazosin 1 Mg Tablet) 2 mg PO QHS [facility] Last Admin: 08/10/20 22:10 Dose: 2 mg Documented by: Duloxetine HCl (Duloxetine Hcl 30 Mg Capsule) 30 mg PO BID [facility] Last Admin: 08/11/20 10:29 Dose: 30 mg Documented by: Enoxaparin Sodium (Enoxaparin 40 Mg/0.4 Ml Syringe) 40 mg SC DAILY@0600 [facility] Last Admin: 08/11/20 05:48 Dose: 40 mg Documented by: Ergocalciferol (Ergocalciferol 50,000 Unit Capsule) 50,000 unit PO Fr@1000 [facility] Last Admin: 08/08/20 14:00 Dose: Not Given Documented by: Furosemide (Furosemide 40 Mg Tablet) 40 mg PO DAILY [facility] Last Admin: 08/11/20 10:30 Dose: 40 mg Documented by: Sodium Chloride () 250 mls @ 15 mls/hr IV .[id number] PRN PRN Reason: Saline Flush Last Admin: 08/10/20 19:26 Dose: 15 mls/hr Documented by: Vancomycin IV Pharmacy to Dose (1 each/ Sodium Chloride) 500 mls @ 250 mls/hr IV X1 PRN; Protocol PRN Reason: Rx to Dose Vancomycin HCl 2,000 mg/ (Sodium Chloride) 540 mls @ 250 mls/hr IV X1 ONE Stop: 08/11/20 15:09 Insulin Glargine (Insulin Glargine 100 Units/Ml Pen) 10 units SC 1100,2200 [facility] Last Admin: 08/11/20 11:49 Dose: 10 u Documented by: Insulin Human Lispro (Insulin Lispro 100 Unit/Ml Insuln.Pen) 0 unit SC [facility]; Protocol Last Admin: 08/11/20 11:49 Dose: Not Given Documented by: L-Arginine/L-Glutamine/Calcium HMB ([facility] (Unflavored) Packet) [facility] Last Admin: 08/11/20 08:04 Dose: 1 packet Documented by: Levetiracetam (Levetiracetam 500 Mg Tablet) 500 mg PO BID [facility] Last Admin: 08/11/20 10:30 Dose: 500 mg Documented by: Morphine Sulfate (Morphine 2 Mg/Ml Syringe) 2 mg IV Q3H PRN PRN PRN Reason: Pain Score 6-10 Last Admin: 08/10/20 08:05 Dose: 2 mg Documented by: Ondansetron HCl (Ondansetron 4 Mg/2 Ml Vial) 4 mg IV Q8H PRN PRN PRN Reason: NAUSEA/VOMITING Last Admin: 08/08/20 01:44 Dose: 4 mg Documented by: Oxycodone HCl (Oxycodone 5 Mg Tablet) 5 mg PO Q4H PRN PRN PRN Reason: Pain Score 4-5 Last Admin: 08/11/20 01:17 Dose: 5 mg Documented by: Oxycodone HCl (Oxycodone 5 Mg Tablet) 10 mg PO Q4H PRN PRN PRN Reason: Pain Score 6-10 Last Admin: 08/11/20 09:33 Dose: 10 mg Documented by: Pregabalin (Pregabalin 50 Mg Capsule) 200 mg PO BID [facility] Last Admin: 08/11/20 10:29 Dose: 200 mg Documented by: Risperidone (Risperidone 0.25 Mg Tablet) 0.25 mg PO BID [facility] Last Admin: 08/11/20 10:30 Dose: 0.25 mg Documented by: Sodium Chloride (0.9% Saline Lock 10 Ml Syringe) 10 - 40 ml IV UD PRN PRN Reason: SALINE FLUSH Last Admin: 08/10/20 08:05 Dose: 10 ml Documented by: Tolterodine Tartrate (Tolterodine Tartrate 2 Mg Cap.Sa) 2 mg PO DAILY [facility] Last Admin: 08/11/20 10:29 Dose: 2 mg Documented by: Medical Necessity - Tobacco Use Smoking Status: Current every day smoker Tobacco Use: Cigarettes Route of nutrition/ use of supplements: [] Nutritional Intake: [] IV Site: [] Morales Catheter: [] - Assessment/Plan Antibiotics: [] Assessment/Plan: [] Active and Suspected Problems (Last Reviewed 08/04/20 @ 21:07 by Zuleyka Donald, SALES AND MARKETING ASSOCIATE-C) Hypoxia (Acute) secondary to COPD with altered mental status Open left ankle fracture (Acute) Leukocytosis (Acute) L ankle osteo - now s/p I&D by Dr. Doyle 08/05/20. Bone cx with MRSE and diphtheroids. 08/08 take to OR with external fixation by Dr. Doyle and Dr. Allred. Pt with MICHELE, elevated vanc trough, vanc was stopped. Vanc level now at 5, not currently receiving any MRSE coverage. Still on zosyn. Will stop zosyn. Limited options for abx. Unable to do linezolid due to risk of serotonin syndrome, dapto may be too expensive for ECF. With depth of disease, vanc is the best drug for both her organisms. Will restart vanc, monitor level closely at ECF. Plan on 6 weeks iv abx, stop date 09/15/20. ID followup in 2 weeks. Will follow, d/w Dr. Denise and rn case mgr.
--- NOTE | 2020-08-11 13:28 | PCM.DC.SUM ---
<Lashaun Xiong NP - Last Filed: 08/11/20 15:20> Discharge Date and Diagnosis - Problem List Patient Problems: Active and Suspected Problems (Last Reviewed 08/04/20 @ 21:07 by Zuleyka Donald NP-C) Fracture tibia/fibula (Acute) left-recent (06/21/20) Open left ankle fracture (Acute) Left ankle wound with osteomyelitis due to chronic open left ankle fracture Date of Admission: 08/04/20 Date of Discharge: 08/11/20 - Primary Discharge Diagnosis Acute Problems: Active Problems (Last Reviewed 08/04/20 @ 21:07 by Zuleyka Donald NP-C) 1. Left ankle wound with osteomyelitis due to chronic open left ankle fracture-status post wound debridement, bone biopsy and temporary reduction. OR 08/08/2020 for placement of external fixation, staged stability. 2. Type 2 diabetes mellitus 3. Chronic hypoxia secondary to chronic COPD, suspect underlying NORRIS as well 4. History of grand mal seizures 5. Schizophrenia/anxiety/depression 6. Vitamin D deficiency 7. Acute blood loss anemia, expected outcome related to #1 8. 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 Electronically Signed: Edgar Mendoza MD at 18:43 EDT Tel , Service support , Chest X-Ray 08/04/20 18:20 IMPRESSION: Right lower lobe infiltrate or atelectasis. Discoid atelectasis in left lower lobe Electronically Signed: Luther Santos MD at 18:54 EDT , Service support , Foot X-Ray 08/09/20 07:30 IMPRESSION: Postoperative exam as described above. Electronically Signed: Tj Trevino MD at 10:51 EDT Tel , Service support , Tibia/Fibula X-Ray 08/09/20 07:30 IMPRESSION: Left lower leg in traction as described above. Electronically Signed: Tj Trevino MD at 10:51 EDT Tel , Service support , Ankle X-Ray 08/09/20 07:34 IMPRESSION: Postoperative exam as described above. Electronically Signed: Tj Trevino MD at 10:53 EDT Tel , Service support , Consultations 08/04/20 20:53 Consult: Onc/Wound/batt machine operator Routine Comment: Dr. Allred- Podiatry Dr. Rashid- ID Operations: - - 1. Bone marrow aspirate harvest and application, left lower extremity. 2. Tenotomy achilles, left. 3. Left dislocated ankle fracture reduction with ankle arthrodesis and fixation with use of external fixation (circular ring, hybrid). 4. Application of advanced wound healing product (amnio salina Procedures: None Summary of Care Provided: The patient is a 50 year old F admitted 08/04/2020 due to nonhealing wound left ankle. 1. Left ankle wound with osteomyelitis due to chronic open left ankle fracture-status post wound debridement, bone biopsy and temporary reduction. OR 08/08/2020 for placement of external fixation, staged stability. Bone culture grew MRSE and diphtheroids. Plan for IV vancomycin for 6 weeks with stop date 09/15/2020 per ID recommendations. Follow-up with ID in 2 weeks. Follow-up with podiatry 08/15/20. 2. Type 2 diabetes mellitus-insulin regimen adjusted as patient has had episodes of hypoglycemia. Hemoglobin A1c 8%. Continue Lantus 10 units twice daily as well as sliding scale Humalog. If blood glucose increases at SNF, insulin will need adjusted as well. Previously on Lantus 22 units twice daily and Humalog 13 units 3 times daily along with sliding scale insulin. 3. Chronic hypoxia secondary to chronic COPD, suspect underlying NORRIS as well-continue supplement oxygen to maintain O2 at or above 90%. IS. Albuterol DuoNeb aerosols. 4. History of grand mal seizures-on Keppra. 5. Schizophrenia/anxiety/depression-on Cymbalta, risperidone. 6. Vitamin D deficiency-continue replacement. 7. Acute blood loss anemia, expected outcome related to #1- receive 2 units PRBC. Hemoglobin now stable. 8. Chronic kidney disease stage IIIb-at baseline, trend BMP. General: Alert, Oriented x3, Cooperative HEENT: Atraumatic, PERRLA, EOMI, Normocephalic Neck: Supple, No JVD, Negative Carotid Bruits Lungs: Clear to auscultation, Normal air movement Cardiovascular: Regular rate, No murmurs Abdomen: Bowel Sounds Present, Soft, Non Tender, Non-Distended, Obese Extremities: No clubbing, No cyanosis, No edema, Capillary Refill Less than 3 Seconds Skin: - - Left foot dressing intact Musculoskeletal: No Tenderness to Palpation of Joints or Extremities Neurological: Cranial nerves II-XII grossly intact, Neuro grossly intact Psych/Mental Status: Normal Affect, Appropriate Patient seen and examined prior to discharge. Physical assessment as noted above. Patient is stable for discharge with follow up recommendations as noted above. This patient was seen by CHARLY Montalvo under the supervision of Dr. Denise. Patient Problems: Active and Suspected Problems (Last Reviewed 08/04/20 @ 21:07 by CHARLY Garrison) Fracture tibia/fibula (Acute) left-recent (06/21/20) Open left ankle fracture (Acute) Left ankle wound with osteomyelitis due to chronic open left ankle fracture - Physical Exam Vitals/I&O's: Vital Signs Temp Pulse Resp BP Pulse Ox 97.3 F L 97 18 152/82 H 93 08/11/20 11:51 08/11/20 11:51 08/11/20 11:51 08/11/20 11:51 08/11/20 11:51 Oxygen Flow Rate (L/min) 3 Oxygen Delivery Method Nasal Cannula Weight: 190 lb 11.198 oz Body Mass Index (BMI) 31.4 Finger Stick Blood Glucose 209 Intake and Output for Last 24 Hours 08/09/20 08/10/20 08/11/20 23:59 23:59 23:59 Intake Total 3778.75 / 3778.75 1980.50 / 1980.50 1322.5 / 1322.5 Output Total 2450 / 2450 550 / 550 1000 / 1000 Balance 1328.75 / 1328.75 1430.50 / 1430.50 322.5 / 322.5 Microbiology Past 72 Hours 08/04/20 17:55 Blood Culture (Wb) - Anticubital Left Blood Culture - Final No growth in 5 days. 08/04/20 17:50 Blood Culture (Wb) - Anticubital Right Blood Culture - Final No growth in 5 days. 08/05/20 Unknown Bone - Other Gram Stain - Final 08/05/20 Unknown Bone - Other Wound Culture - Preliminary Staphylococcus epidermidis Corynebacterium striatum 08/05/20 Unknown Bone - Other Anaerobic Culture - Final No anaerobic bacteria isolated. 08/05/20 Unknown Wound Abcess - Aerobic & Anaerobic Swabs Gram Stain - Final 08/05/20 Unknown Wound Abcess - Aerobic & Anaerobic Swabs Wound Culture - Final No growth aerobically. 08/05/20 Unknown Wound Abcess - Aerobic & Anaerobic Swabs Anaerobic Culture - Final No anaerobic bacteria isolated. Laboratory Results 08/10/20 16:39: POC Glucose 41 L* 08/10/20 16:56: POC Glucose 41 L* 08/10/20 17:43: POC Glucose 123 H 08/10/20 22:06: POC Glucose 131 H 08/11/20 05:47: POC Glucose 135 H 08/11/20 06:02: WBC 7.9, RBC 3.25 L, Hgb 8.6 L, Hct 31.0 L, MCV 95.4, MCH 26.5 L, MCHC 27.7 L, RDW Std Deviation 57.7 H, RDW Coeff of Krista 16.2 H, Plt Count 342, MPV 10.2 08/11/20 06:02: Sodium 146 H, Potassium 4.9, Chloride 117 H, Carbon Dioxide 27.0, Anion Gap 2 L, BUN 32 H, Creatinine 1.42 H, Estim Creat Clear Calc 41.70, Est GFR (MDRD) Af Amer 50 L, Est GFR (MDRD) Non-Af 41 L, BUN/Creatinine Ratio 22.5 H, Glucose 130 H, Calcium 8.8 08/11/20 11:40: POC Glucose 92 Current Medications Acetaminophen (Acetaminophen 325 Mg Tablet) 650 mg PO Q6H PRN PRN PRN Reason: Pain Score 1-10/Temp > 100.7 F Last Admin: 08/10/20 22:15 Dose: 650 mg Documented by: Albuterol Sulfate (Albuterol 2.5 Mg/3 Ml Vial.Neb.) 2.5 mg INHALATION Q2H PRN PRN PRN Reason: Dyspnea, wheezing Albuterol/Ipratropium (Ipratropium/Albuterol Sulfate 3 Ml Ampul.Neb) 3 ml INHALATION Q6HWA.RT [facility] Last Admin: 08/11/20 07:18 Dose: 3 ml Documented by: Ascorbic Acid (Ascorbic Acid 500 Mg Tablet) 500 mg PO DAILY [facility] Last Admin: 08/11/20 10:29 Dose: 500 mg Documented by: Docusate Sodium (Docusate Sodium 100 Mg Capsule) 100 mg PO BID PRN PRN PRN Reason: Constipation Last Admin: 08/10/20 22:14 Dose: 100 mg Documented by: Doxazosin Mesylate (Doxazosin 1 Mg Tablet) 2 mg PO QHS [facility] Last Admin: 08/10/20 22:10 Dose: 2 mg Documented by: Duloxetine HCl (Duloxetine Hcl 30 Mg Capsule) 30 mg PO BID [facility] Last Admin: 08/11/20 10:29 Dose: 30 mg Documented by: Enoxaparin Sodium (Enoxaparin 40 Mg/0.4 Ml Syringe) 40 mg SC DAILY@0600 [facility] Last Admin: 08/11/20 05:48 Dose: 40 mg Documented by: Ergocalciferol (Ergocalciferol 50,000 Unit Capsule) 50,000 unit PO Fr@1000 [facility] Last Admin: 08/08/20 14:00 Dose: Not Given Documented by: Furosemide (Furosemide 40 Mg Tablet) 40 mg PO DAILY [facility] Last Admin: 08/11/20 10:30 Dose: 40 mg Documented by: Sodium Chloride () 250 mls @ 15 mls/hr IV .[id number] PRN PRN Reason: Saline Flush Last Admin: 08/10/20 19:26 Dose: 15 mls/hr Documented by: Vancomycin IV Pharmacy to Dose (1 each/ Sodium Chloride) 500 mls @ 250 mls/hr IV X1 PRN; Protocol PRN Reason: Rx to Dose Vancomycin HCl 2,000 mg/ (Sodium Chloride) 540 mls @ 250 mls/hr IV X1 ONE Stop: 08/11/20 15:09 Insulin Glargine (Insulin Glargine 100 Units/Ml Pen) 10 units SC 1100,2200 [facility] Last Admin: 08/11/20 11:49 Dose: 10 u Documented by: Insulin Human Lispro (Insulin Lispro 100 Unit/Ml Insuln.Pen) 0 unit SC ACHS [facility]; Protocol Last Admin: 08/11/20 11:49 Dose: Not Given Documented by: L-Arginine/L-Glutamine/Calcium HMB (Valentin (Unflavored) Packet) 1 packet PO BIDCM [facility] Last Admin: 08/11/20 08:04 Dose: 1 packet Documented by: Levetiracetam (Levetiracetam 500 Mg Tablet) 500 mg PO BID [facility] Last Admin: 08/11/20 10:30 Dose: 500 mg Documented by: Morphine Sulfate (Morphine 2 Mg/Ml Syringe) 2 mg IV Q3H PRN PRN PRN Reason: Pain Score 6-10 Last Admin: 08/10/20 08:05 Dose: 2 mg Documented by: Ondansetron HCl (Ondansetron 4 Mg/2 Ml Vial) 4 mg IV Q8H PRN PRN PRN Reason: NAUSEA/VOMITING Last Admin: 08/08/20 01:44 Dose: 4 mg Documented by: Oxycodone HCl (Oxycodone 5 Mg Tablet) 5 mg PO Q4H PRN PRN PRN Reason: Pain Score 4-5 Last Admin: 08/11/20 01:17 Dose: 5 mg Documented by: Oxycodone HCl (Oxycodone 5 Mg Tablet) 10 mg PO Q4H PRN PRN PRN Reason: Pain Score 6-10 Last Admin: 08/11/20 09:33 Dose: 10 mg Documented by: Pregabalin (Pregabalin 50 Mg Capsule) 200 mg PO BID [facility] Last Admin: 08/11/20 10:29 Dose: 200 mg Documented by: Risperidone (Risperidone 0.25 Mg Tablet) 0.25 mg PO BID [facility] Last Admin: 08/11/20 10:30 Dose: 0.25 mg Documented by: Sodium Chloride (0.9% Saline Lock 10 Ml Syringe) 10 - 40 ml IV UD PRN PRN Reason: SALINE FLUSH Last Admin: 08/10/20 08:05 Dose: 10 ml Documented by: Tolterodine Tartrate (Tolterodine Tartrate 2 Mg Cap.Sa) 2 mg PO DAILY [facility] Last Admin: 08/11/20 10:29 Dose: 2 mg Documented by: Discharge Activity: May Not Drive, May Not Shower, Use Walker Weight Bearing Status: No weight bearing Keep extremity elevated above heart level: Left Leg Call your doctor if your incision/area has: Continuous Slow Oozing, Sudden Increased Bleeding, Increased Pain/ Swelling, Increased Redness, Foul Smelling Discharge, Swelling at the incision site Call your doctor if you observe: Fever of 101 or Higher, Numbness or Tingling, Calf discomfort, Uncontrolled pain Cleanse incision/area with: Do not get Incision Wet Home Medications: Medications to take at Discharge Oxybutynin Chloride [Ditropan Xl] 5 mg PO BID 06/10/17 Duloxetine Hcl [Cymbalta] 30 mg PO BID 10/24/19 Ascorbic Acid 500 mg PO DAILY 08/04/20 Docusate Sodium 100 mg PO BID 08/04/20 Ergocalciferol (Vitamin D2) [Vitamin D2] 50,000 unit PO FR 08/04/20 Furosemide [Lasix] 40 mg PO DAILY 08/04/20 Insulin Lispro [Humalog] See Protocol SQ TIDCM 08/04/20 Levetiracetam [Keppra] 500 mg PO BID 08/04/20 M-Vit,Tx,Iron,Mins/Calc/Folic [Thera-M Caplet] 1 tablet PO DAILY 08/04/20 Multivit,Stress Formula/Zinc [Stress Formula with Zinc Tab] 1 tablet PO BID 08/04/20 Prazosin HCl 2 mg PO QHS 08/04/20 Pregabalin [Lyrica] 100 mg PO BID 08/04/20 Risperidone 0.25 mg PO BID 08/04/20 Acetaminophen [Tylenol Tablet] 650 mg PO Q6H PRN PRN tablet 08/11/20 Insulin Glargine [Lantus SoloStar Pen] 10 units SC 1100,2200 pen 08/11/20 Valentin (unflavored) [Valentin Packet] 1 packet PO BIDCM packet 08/11/20 Oxycodone [Oxyir] 5 - 10 mg PO Q6H PRN PRN 3 Days #20 tab 08/11/20 Following Prescriptions Were Given to Patient: Oxycodone [Oxyir] 5 - 10 mg PO Q6H PRN PRN 3 Days #20 tab PRN Reason: Pain Score 4-10 Prescription Printed Primary Care Physician: Júnior Lee MD [Primary Care Provider] - Please follow up with your Primary Care Physician in: 1 Week Please Follow Up With: Vicki Allred DPM When: [facility] 08/15/20 Call [phone] to confirm. Please Follow Up With: Baltazar Rashid MD When: 2 Weeks Additional Instructions: Continue antibiotics per infectious disease recommendations. Continue DVT prophylaxis medication. Continue smoking cessation. Continue Vitamin D supplementation. Continue Valentin supplementation. Disposition: [facility] facility Minutes spent on discharge:: 35 Patient Condition:: Stable Medical Necessity - Tobacco Use Smoking Status: Current every day smoker Tobacco Use: Cigarettes Meaningful Use Info Meaningful Use Diagnoses (Choose all that apply): None applicable <David Denise - Last Filed: 08/11/20 15:36> Discharge Date and Diagnosis - Primary Discharge Diagnosis Acute Problems: Active Problems (Last Reviewed 08/04/20 @ 21:07 by Zuleyka Donald NP-C) Fracture tibia/fibula (Acute) left-recent (06/21/20) Open left ankle fracture (Acute) Left ankle wound with osteomyelitis due to chronic open left ankle fracture - Secondary Discharge Diagnosis Chronic Problems: Chronic Problems (Last Reviewed 08/04/20 @ 21:07 by Zuleyka Donald NP-C) Schizophrenia (Chronic) COPD (chronic obstructive pulmonary disease) (Chronic) Open wound of left lower extremity with complication (Chronic) Displaced bimalleolar fracture of left lower leg, initial encounter for open fracture type IIIA, IIIB, or IIIC (Chronic) Osteomyelitis (Chronic) Dislocation of ankle, left, open (Chronic) 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) Diabetes (Chronic) Blind left eye (Chronic) Type II diabetes mellitus (Chronic) Depression (Chronic) Anxiety (Chronic) Peripheral neuropathy (Chronic) Hyperglycemia due to type 2 diabetes mellitus (Chronic) Hypoxemia (Chronic) Hyperosmolar hyponatremia (Chronic) Hospital Course and Treatment Consultations 08/04/20 20:53 Consult: Onc/Wound/batt machine operator Routine Comment: Summary of Care Provided: The patient is a 50 year old F [] - Physical Exam Vitals/I&O's: Vital Signs Temp Pulse Resp BP Pulse Ox 98.6 F 98 18 152/89 H 95 08/11/20 14:44 08/11/20 14:44 08/11/20 14:44 08/11/20 14:44 08/11/20 14:44 Oxygen Flow Rate (L/min) 3 Oxygen Delivery Method Nasal Cannula Weight: 190 lb 11.198 oz Body Mass Index (BMI) 31.4 Finger Stick Blood Glucose 209 Intake and Output for Last 24 Hours 08/09/20 08/10/20 08/11/20 23:59 23:59 23:59 Intake Total 3778.75 / 3778.75 1980.50 / 1980.50 2372.5 / 2372.5 Output Total 2450 / 2450 550 / 550 1200 / 1200 Balance 1328.75 / 1328.75 1430.50 / 1430.50 1172.5 / 1172.5 Microbiology Past 72 Hours 08/04/20 17:55 Blood Culture (Wb) - Anticubital Left Blood Culture - Final No growth in 5 days. 08/04/20 17:50 Blood Culture (Wb) - Anticubital Right Blood Culture - Final No growth in 5 days. 08/05/20 Unknown Bone - Other Gram Stain - Final 08/05/20 Unknown Bone - Other Wound Culture - Preliminary Staphylococcus epidermidis Corynebacterium striatum 08/05/20 Unknown Bone - Other Anaerobic Culture - Final No anaerobic bacteria isolated. Laboratory Results 08/10/20 16:39: POC Glucose 41 L* 08/10/20 16:56: POC Glucose 41 L* 08/10/20 17:43: POC Glucose 123 H 08/10/20 22:06: POC Glucose 131 H 08/11/20 05:47: POC Glucose 135 H 08/11/20 06:02: WBC 7.9, RBC 3.25 L, Hgb 8.6 L, Hct 31.0 L, MCV 95.4, MCH 26.5 L, MCHC 27.7 L, RDW Std Deviation 57.7 H, RDW Coeff of Krista 16.2 H, Plt Count 342, MPV 10.2 08/11/20 06:02: Sodium 146 H, Potassium 4.9, Chloride 117 H, Carbon Dioxide 27.0, Anion Gap 2 L, BUN 32 H, Creatinine 1.42 H, Estim Creat Clear Calc 41.70, Est GFR (MDRD) Af Amer 50 L, Est GFR (MDRD) Non-Af 41 L, BUN/Creatinine Ratio 22.5 H, Glucose 130 H, Calcium 8.8 08/11/20 11:40: POC Glucose 92 Current Medications Acetaminophen (Acetaminophen 325 Mg Tablet) 650 mg PO Q6H PRN PRN PRN Reason: Pain Score 1-10/Temp > 100.7 F Last Admin: 08/10/20 22:15 Dose: 650 mg Documented by: Albuterol Sulfate (Albuterol 2.5 Mg/3 Ml Vial.Neb.) 2.5 mg INHALATION Q2H PRN PRN PRN Reason: Dyspnea, wheezing Albuterol/Ipratropium (Ipratropium/Albuterol Sulfate 3 Ml Ampul.Neb) 3 ml INHALATION Q6HWA.RT [facility] Last Admin: 08/11/20 07:18 Dose: 3 ml Documented by: Ascorbic Acid (Ascorbic Acid 500 Mg Tablet) 500 mg PO DAILY [facility] Last Admin: 08/11/20 10:29 Dose: 500 mg Documented by: Docusate Sodium (Docusate Sodium 100 Mg Capsule) 100 mg PO BID PRN PRN PRN Reason: Constipation Last Admin: 08/10/20 22:14 Dose: 100 mg Documented by: Doxazosin Mesylate (Doxazosin 1 Mg Tablet) 2 mg PO QHS [facility] Last Admin: 08/10/20 22:10 Dose: 2 mg Documented by: Duloxetine HCl (Duloxetine Hcl 30 Mg Capsule) 30 mg PO BID [facility] Last Admin: 08/11/20 10:29 Dose: 30 mg Documented by: Enoxaparin Sodium (Enoxaparin 40 Mg/0.4 Ml Syringe) 40 mg SC DAILY@0600 [facility] Last Admin: 08/11/20 05:48 Dose: 40 mg Documented by: Ergocalciferol (Ergocalciferol 50,000 Unit Capsule) 50,000 unit PO Fr@1000 [facility] Last Admin: 08/08/20 14:00 Dose: Not Given Documented by: Furosemide (Furosemide 40 Mg Tablet) 40 mg PO DAILY [facility] Last Admin: 08/11/20 10:30 Dose: 40 mg Documented by: Sodium Chloride () 250 mls @ 15 mls/hr IV .[id number] PRN PRN Reason: Saline Flush Last Admin: 08/11/20 14:42 Dose: 15 mls/hr Documented by: Vancomycin IV Pharmacy to Dose (1 each/ Sodium Chloride) 500 mls @ 250 mls/hr IV X1 PRN; Protocol PRN Reason: Rx to Dose Vancomycin HCl 750 mg/ Sodium (Chloride) 265 mls @ 250 mls/hr IV Q12H [facility] Insulin Glargine (Insulin Glargine 100 Units/Ml Pen) 10 units SC 1100,2200 [facility] Last Admin: 08/11/20 11:49 Dose: 10 u Documented by: Insulin Human Lispro (Insulin Lispro 100 Unit/Ml Insuln.Pen) 0 unit SC ACHS [facility]; Protocol Last Admin: 08/11/20 11:49 Dose: Not Given Documented by: L-Arginine/L-Glutamine/Calcium HMB (Valentin (Unflavored) Packet) 1 packet PO BIDCM [facility] Last Admin: 08/11/20 08:04 Dose: 1 packet Documented by: Levetiracetam (Levetiracetam 500 Mg Tablet) 500 mg PO BID [facility] Last Admin: 08/11/20 10:30 Dose: 500 mg Documented by: Morphine Sulfate (Morphine 2 Mg/Ml Syringe) 2 mg IV Q3H PRN PRN PRN Reason: Pain Score 6-10 Last Admin: 08/10/20 08:05 Dose: 2 mg Documented by: Ondansetron HCl (Ondansetron 4 Mg/2 Ml Vial) 4 mg IV Q8H PRN PRN PRN Reason: NAUSEA/VOMITING Last Admin: 08/08/20 01:44 Dose: 4 mg Documented by: Oxycodone HCl (Oxycodone 5 Mg Tablet) 5 mg PO Q4H PRN PRN PRN Reason: Pain Score 4-5 Last Admin: 08/11/20 01:17 Dose: 5 mg Documented by: Oxycodone HCl (Oxycodone 5 Mg Tablet) 10 mg PO Q4H PRN PRN PRN Reason: Pain Score 6-10 Last Admin: 08/11/20 14:40 Dose: 10 mg Documented by: Pregabalin (Pregabalin 50 Mg Capsule) 200 mg PO BID [facility] Last Admin: 08/11/20 10:29 Dose: 200 mg Documented by: Risperidone (Risperidone 0.25 Mg Tablet) 0.25 mg PO BID [facility] Last Admin: 08/11/20 10:30 Dose: 0.25 mg Documented by: Sodium Chloride (0.9% Saline Lock 10 Ml Syringe) 10 - 40 ml IV UD PRN PRN Reason: SALINE FLUSH Last Admin: 08/10/20 08:05 Dose: 10 ml Documented by: Tolterodine Tartrate (Tolterodine Tartrate 2 Mg Cap.Sa) 2 mg PO DAILY [facility] Last Admin: 08/11/20 10:29 Dose: 2 mg Documented by: Addendum: Dr. Denise I personally examined the patient and reviewed the chart. I agree with the above. 50-year-old female with history of schizophrenia and diabetes presents to the hospital for surgery by podiatry. She was following up with her residential construction instructor and was having an open wound over the medial aspect of the left ankle. Cultures demonstrating staph epi as well as corynebacterium. Her creatinine has been climbing with her vancomycin therefore given that her MRSA PCR was negative we will discontinue her vancomycin at this time. Can adjust antibiotics as necessary. Will discharge back to SNF for therapy when medically stable. 08/10/2020: Doing well overnight. No new issues. Cultures are still finalizing however because her creatinine was bumping we discontinued her vancomycin since she was staph epidermidis with a negative PCR for MRSA. Continue with Zosyn for now. ID to make final antibiotic determinations prior to discharge. 08/11/2020: No new issues overnight, doing very well today with her dressing change, is having some pain during this dressing changes but help. Infectious disease saw her today and felt that vancomycin would be the ideal drug to put her on at discharge and she does have a PICC in place. We will plan to discharge her back to SNF for therapy and wound care. Inpatient E&M: [id number] Disch Hosp
--- NOTE | 2020-08-11 14:49 | PCM.RX.CS ---
Consult Pharmacy has been consulted to manage selected antiobiotic: Vancomycin Type of Consult: New start Labs: Sodium 146 mmol/L (136-145) H 08/11/20 06:02 Potassium 4.9 mmol/L (3.5-5.1) 08/11/20 06:02 Chloride 117 mmol/L (98-107) H 08/11/20 06:02 Carbon Dioxide 27.0 mmol/L (21.0-32.0) 08/11/20 06:02 Anion Gap 2 (5-15) L 08/11/20 06:02 BUN 32 mg/dL (7-18) H 08/11/20 06:02 Creatinine 1.42 mg/dL (0.55-1.02) H 08/11/20 06:02 Est GFR (MDRD) Af Amer 50 mL/min (>60) L 08/11/20 06:02 Est GFR (MDRD) Non-Af 41 mL/min (>60) L 08/11/20 06:02 BUN/Creatinine Ratio 22.5 RATIO (10-20) H 08/11/20 06:02 Glucose 130 mg/dL (74-106) H 08/11/20 06:02 Vancomycin Trough 28.7 ug/mL (5.0-15.0) H 08/06/20 06:24 Random Vancomycin 5.2 ug/mL (0.0-15.0) 08/10/20 06:00 Microbiology: Microbiology 08/04/20 17:55 Blood Culture (Wb) - Anticubital Left Blood Culture - Final No growth in 5 days. 08/04/20 17:50 Blood Culture (Wb) - Anticubital Right Blood Culture - Final No growth in 5 days. 08/05/20 Unknown Bone - Other Gram Stain - Final 08/05/20 Unknown Bone - Other Wound Culture - Preliminary Staphylococcus epidermidis Corynebacterium striatum 08/05/20 Unknown Bone - Other Anaerobic Culture - Final No anaerobic bacteria isolated. 08/05/20 Unknown Wound Abcess - Aerobic & Anaerobic Swabs Gram Stain - Final 08/05/20 Unknown Wound Abcess - Aerobic & Anaerobic Swabs Wound Culture - Final No growth aerobically. 08/05/20 Unknown Wound Abcess - Aerobic & Anaerobic Swabs Anaerobic Culture - Final No anaerobic bacteria isolated. 08/04/20 18:00 Wound - Left Foot Anaerobic Culture - Final No anaerobic bacteria isolated. 08/04/20 18:00 Mucosa - Nose SARS-CoV-2 Antigen (Rapid) - Final Weight used for dosin kg Estimated Creatinine Clearance: 42 Goal Trough: 15-20 mcg/mL Pharmacy Plan for Drug Dosinmg given IV x1, follow with 750mg IV q12h with trough prior to 4th dose per policy. Pharmacy Service will continue to monitor and adjust dosing as required. Follow-Up Labs: Trough Vancomycin - 08/13 @ [id number]
[2020-08-11 16:16] LABS: Bedside Glucose 159 mg/dL (70-110)
--- NOTE | 2020-08-11 16:31 | CASEMGMT ---
Social Work Note Pt is able to discharge back to [facility] today. APRIL placed a call to Liz at [facility] and updated her on pt's IV antibiotics that pt will be needing at discharge. Liz states pt is able to return today. Liz states pt was skilled and will be returning skilled. Liz also states she will have their psychiatrist see pt when she returns to [facility] as well. APRIL faxed completed discharge paperwork to [facility] including transfer to extended care facility, signed medication list, any scripts, COVID test, and COVID screening tool. Original in SNF folder and copy on pt's chart. APRIL spoke with RN, pt can transport via cot. SW accessed trip assist and arranged transportation via cot for 5:00pm. Transportation form completed and placed on SNF folder and copy on pt's chart. APRIL updated RN on transportation time. SW updated pt on discharge and transportation time. APRIL placed a call to Liz at [facility] and updated her on transportation time. Plan: Return to [facility] skilled today with Physician's transporting pt via cot at 5:00pm Celeste DANIEL, [employer]
== END 2020-08-11 19:45 | disposition skilled nursing facility (03) | DRG 313 ==
LOC: ED 20:02 → MS3 20:45
PROVIDERS: Anesthesiology; Nurse Practitioner Family; Podiatrist; Podiatrist Foot & Ankle Surgery; Student in an Organized Health Care Education/Training Program; Admitting Provider Family Medicine; Emergency Provider Emergency Medicine; PCP Family Medicine; Visit Provider Family Medicine
PROC: 0QBP0ZZ Excision of Left Metatarsal, Open Approach (ICD-10-PCS; principal; 2020-08-05 13:50)
PROC: 0QSK04Z Reposition Left Fibula with Internal Fixation Device, Open Approach (ICD-10-PCS; CPT 27814; principal; 2020-08-08 08:45)
DX: S82.842B Displaced bimalleolar fracture of left lower leg, initial encounter for open fracture type I or II (principal); M86.8X7 Other osteomyelitis, ankle and foot; N17.9 Acute kidney failure, unspecified; F20.9 Schizophrenia, unspecified; J96.11 Chronic respiratory failure with hypoxia; L03.116 Cellulitis of left lower limb; L97.329 Non-pressure chronic ulcer of left ankle with unspecified severity; S82.202N Unspecified fracture of shaft of left tibia, subsequent encounter for open fracture type IIIA, IIIB, or IIIC with nonunion; S93.05XD Dislocation of left ankle joint, subsequent encounter; S91.002D Unspecified open wound, left ankle, subsequent encounter; E11.22 Type 2 diabetes mellitus with diabetic chronic kidney disease; N18.32 Chronic kidney disease, stage 3b; E55.9 Vitamin D deficiency, unspecified; G40.409 Other generalized epilepsy and epileptic syndromes, not intractable, without status epilepticus; M25.373 Other instability, unspecified ankle; E11.69 Type 2 diabetes mellitus with other specified complication; D62 Acute posthemorrhagic anemia; G40.909 Epilepsy, unspecified, not intractable, without status epilepticus; F41.9 Anxiety disorder, unspecified; J44.9 Chronic obstructive pulmonary disease, unspecified; F32.9 Major depressive disorder, single episode, unspecified; E11.36 Type 2 diabetes mellitus with diabetic cataract; Z79.4 Long term (current) use of insulin; F17.210 Nicotine dependence, cigarettes, uncomplicated; M79.7 Fibromyalgia; Z91.19 Patient's noncompliance with other medical treatment and regimen; H54.62 Unqualified visual loss, left eye, normal vision right eye; E11.42 Type 2 diabetes mellitus with diabetic polyneuropathy; G47.33 Obstructive sleep apnea (adult) (pediatric); B95.2 Enterococcus as the cause of diseases classified elsewhere
CPT/HCPCS: 36415; 36569; 71045; 73590; 73610; 73630; 73700; 76000; 80048; 80053; 80202; 80307; 82077; 82306; 82962; 83036; 83605; 84132; 85025; 85027; 85610; 85652; 85730; 86140; 86850; 86900; 86901; 86920; 87015; 87040; 87070; 87075; 87077; 87102; 87116; 87186; 87205; 87206; 87426; 87640; 88304; 88305; 88307; 88311; 93005; 94640; 94762; 97110; 97116; 97162; 97166; 97530; 97535; 99285; C1713; J7030; J7040; J7050; P9016; A4216; J2405

== ENCOUNTER → 2020-08-04 17:28 | Outpatient (CLI) | payer MEDICAID, SELFPAY ==
[2020-08-04 17:02] VITALS: BMI 32.9
[2020-08-04 19:14] LABS: M R Staph aureus DNA By PCR Negative (Negative); Probe Check PASS; Specimen Processing Control PASS; Staph aureus DNA By PCR POSITIVE (Negative)
== END ==
PROVIDERS: PCP Family Medicine; Referring Provider Podiatrist Foot & Ankle Surgery; Visit Provider Podiatrist Foot & Ankle Surgery
DX: M86.8X9 Other osteomyelitis, unspecified sites (principal)
CPT/HCPCS: 87070; 87075; 87205; 87640